=== PATIENT | female | born 1965 | race Hispanic/Latino ===

== ENCOUNTER 2016-11-11 12:25 | Inpatient (IN) | payer OTHER ==
[2016-11-11 12:32] VITALS: BMI 39.5
[2016-11-11] MEDS ORDERED: Sodium Chloride 0.9% 1,000 ML IV STA (12:52)
[2016-11-11] MEDS ORDERED: HYDROmorphone 0.5 mg/0.5 ml ISec ONE ×2 (13:09→15:28)
--- NOTE | 2016-11-11 13:10 | ED PDOC ---
Lower Extremity Pain/Injury Time Seen by Provider: 11/11/16 12:37 Chief Complaint (Nursing): Lower Extremity Problem/Injury Chief Complaint (Provider): foot ulcer History Per: Patient History/Exam Limitations: no limitations Additional Complaint(s): 51yo female comes to the ED for complaint of right foot ulcers that her hand tacker Dr. Macdonald has been treating with Augmentin PO. Symptoms are not getting better so patient is has been referred here for further evaluation. No nausea, vomit, extremity numbness/weakness, tingling chest pain, calf pain. Admits to chronic right kuo swelling. PMD: Dr. Bauer Past Medical History Reviewed: Historical Data, Nursing Documentation, Vital Signs Vital Signs: Last Vital Signs Temp 98.2 F 11/11/16 12:33 Pulse 84 11/11/16 12:33 Resp 16 11/11/16 12:33 BP 183/94 H 11/11/16 12:33 Pulse Ox 98 11/11/16 12:33 - Medical History PMH: Anemia, Anxiety, Back Problems (herniated disks), CAD, CVA, Diabetes (type I), HTN, Hypercholesterolemia, Hyperlipidemia Denies: Arthritis, CHF, COPD, HIV, Hypothyroidism, Chronic Kidney Disease, Rheumatoid Arthritis - Surgical History Surgical History: Appendectomy, Coronary Stent - Family History Family History: States: Unknown Family Hx - Social History Alcohol: None Drugs: Denies - Immunization History Hx Tetanus Toxoid Vaccination: No Hx Influenza Vaccination: No Hx Pneumococcal Vaccination: No - Home Medications Home Medications: Ambulatory Orders Medication Instructions Recorded Hydrochlorothiazide [HCTZ] 25 mg PO DAILY 02/15/14 Ferrous Sulfate [Feosol] 325 mg PO BID 02/23/14 Clopidogrel [Plavix] 75 mg PO DAILY 06/19/14 Atorvastatin Calcium [Lipitor] 40 mg PO HS 10/22/14 Enalapril Maleate 20 mg PO BID 10/22/14 Metoprolol Succinate [Toprol XL] 200 mg PO Q12H 05/28/15 oxyCODONE [oxyCODONE Immediate 30 mg PO Q6H PRN 05/28/15 Release Tab] Morphine Sulfate [Morphine Sulfate 30 mg PO Q12H 03/27/16 ER] cloNIDine [Catapres] 0.1 mg PO BID #0 tab 04/13/16 Alprazolam [Xanax] 0.5 mg PO BID PRN 07/23/16 Insulin Detemir [Levemir] 65 unit SUBCUT HS 07/23/16 Insulin Lispro [Humalog (Insulin 24 unit SQ AC 07/23/16 Lispro)] amLODIPine [Norvasc] 5 mg PO DAILY 07/23/16 Aspirin [Ecotrin] 81 mg PO DAILY tabec 07/25/16 Cephalexin [cephalexin] 500 mg PO BID #14 cap 07/25/16 oxyCODONE/Acetaminophen [Percocet 1 ea PO Q4 #30 tab 07/25/16 5/325 mg Tab] - Allergies Allergies/Adverse Reactions: Allergies Allergy/AdvReac Type Severity Reaction Status Date / Time morphine AdvReac NAUSEA Verified 11/11/16 12:32 Review of Systems ROS Statement: Except As Marked, All Systems Reviewed And Found Negative Cardiovascular: Negative for: Chest Pain Respiratory: Negative for: Shortness of Breath Gastrointestinal: Negative for: Nausea, Vomiting Musculoskeletal: Positive for: Foot Pain Neurological: Negative for: Weakness, Numbness Physical Exam - Reviewed Nursing Documentation Reviewed: Yes Vital Signs Reviewed: Yes - Physical Exam Appears: Positive for: Well, Non-toxic, No Acute Distress Head Exam: Positive for: ATRAUMATIC, NORMAL INSPECTION, NORMOCEPHALIC Skin: Positive for: Warm, Dry Eye Exam: Positive for: EOMI, PERRL Neck: Positive for: Normal, Painless ROM, Supple Cardiovascular/Chest: Positive for: Regular Rate, Rhythm Respiratory: Positive for: Normal Breath Sounds. Negative for: Rales, Rhonchi, Wheezing Gastrointestinal/Abdominal: Positive for: Soft. Negative for: Tenderness Back: Positive for: Normal Inspection. Negative for: L CVA Tenderness, R CVA Tenderness Extremity: Positive for: Normal ROM, Other (R toes all amputated. Right lower extremity venous stasis and swelling. Right plantar foot with ulcer stage 3 and tender. Right lower extremity swelling/venous stasis. D/P pulses 2+. ) Neurologic/Psych: Positive for: Alert, Oriented - Laboratory Results Result Diagrams: 11/11/16 13:30 11/11/16 13:30 Interpretation Of Abn Labs: 26 bun - ECG ECG: Positive for: Interpreted By Me, Viewed By Me ECG Rhythm: Positive for: Normal QRS, Sinus Rhythm, Nonspecific Changes O2 Sat by Pulse Oximetry: 98 (RA) Pulse Ox Interpretation: Normal - Radiology X-Ray: Read By Radiologist X-Ray Interpretation: No Acute Disease - Progress ED Course And Treament: 1237 VBG, EKG, CXR, Labs, XR RIght foot, blood culture, IV Fluids, Dilaudid ordered. 1509: Stable. AAOx3. Podiatry saw pt. and wants maeve and tabatha. Spoke with [facility], will admit. Disposition - Clinical Impression Clinical Impression: Foot ulcer - Patient ED Disposition Is Patient to be Admitted: Yes - Disposition Disposition Time: 15:10 Condition: FAIR - POA Present On Arrival: Pressure Ulcer Additional Comments - Additional Comments Additional Comments: Scribe Attestation: Documented by Robert Fofana acting as a scribe for Mayank Hair MD. Provider Scribe Attestation: All medical record entries made by the Scribe were at my direction and personally dictated by me. I have reviewed the chart and agree that the record accurately reflects my personal performance of the history, physical exam, medical decision making, and the department course for this patient. I have also personally directed, reviewed, and agree with the discharge instructions and disposition.
[2016-11-11 13:46] LABS: BASO # 0.1 K/uL (0.0-0.2); EOS # 0.1 K/uL (0.0-0.7); EOS % 1.5 % (0.0-4.0); HEMATOCRIT 32.1 % (34.0-47.0); LYMPH # 1.2 K/uL (1.0-4.3); LYMPH % 11.7 % (20.0-40.0); MEAN CORPUSCULAR HEMOGLOBIN 26.8 pg (27.0-31.0); MEAN CORPUSCULAR HGB CONC 33.3 g/dL (33.0-37.0); MEAN PLATELET VOLUME 7.3 fl (7.2-11.7); MONO # 0.6 K/uL (0.0-0.8); NEUT % 79.8 % (50.0-75.0); NRBC % 0.1 % (0.0-0.0); RED CELL DISTRIBUTION WIDTH 15.7 % (11.5-14.5); WHITE BLOOD COUNT 10.1 K/uL (4.8-10.8)
[2016-11-11 14:01] LABS: ALB/GLOB RATIO 0.8 (1.0-2.1); ALKALINE PHOSPHATASE 129 U/L (38-126); ALT/SGPT 20 U/L (9-52); AST/SGOT 26 U/L (14-36); BILIRUBIN,TOTAL 0.4 mg/dl (0.2-1.3); BLOOD UREA NITROGEN 26 mg/dl (7-17); CALCIUM 9.8 mg/dL (8.4-10.2); CARBON DIOXIDE 30 mmol/L (22-30); CHLORIDE 96 mmol/L (98-107); GFR AFRICAN-AMERICAN > 60; GLUCOSE,RANDOM 252 mg/dL (65-105); PHOSPHOROUS 4.2 mg/dl (2.5-4.5); SODIUM 141 mmol/l (132-148); TOTAL PROTEIN 7.9 G/DL (6.3-8.2)
--- NOTE | 2016-11-11 14:06 | CP.PCM.CON ---
History of Present Illness - History of Present Illness History of Present Illness: PODIATRY CONSULT NOTE FOR DR. Mayank RODRIGUEZ, DPM This is a 51 yo female patient seen in the ED today for right diabetic foot infection. Pt says that she was seen by her bag mender Dr. Mayank Rodriguez yesterday in the office and was advised to proceed to ED for IV antibiotics. Pt says she has been taking po Augmentin with little improvement. Says she has had this ulceration for the past month and has been treated with local wound care at the office. Denies seeing any drainage from the foot. Does admit to some burning pain plantar aspect. Says the redness to her kuo is chronic. Does say she had low grade fever 2 weeks ago but denies fever the past few day. Denies n/v/c/sob/ cp today but was nauseous yesterday w/ decreased appetite. Denies any problems to left foot. Sees pain management Dr. Escobedo and takes 30mg oxycontin daily. PMD: Dr. Bauer Aircraft Time Clerk: Dr. Mayank Rodriguez Review of Systems - Review of Systems Review of Systems: All systems reviewed and found to be negative, except pertinent HPI findings Past Patient History - Infectious Disease Hx of Infectious Diseases: None - Tetanus Immunizations Tetanus Immunization: Unknown - Past Medical History & Family History Past Medical History?: Yes - Past Social History Smoking Status: Former Smoker - CARDIAC Hx Congestive Heart Failure: No Hx Hypercholesterolemia: Yes Hx Hypertension: Yes - PULMONARY Hx Chronic Obstructive Pulmonary Disease (COPD): No - NEUROLOGICAL Hx Neurological Disorder: No HX Cerebrovascular Accident: Yes - HEENT Hx HEENT Problems: No - RENAL Hx Chronic Kidney Disease: No - ENDOCRINE/METABOLIC Hx Hypothyroidism: No - HEMATOLOGICAL/ONCOLOGICAL Hx Anemia: Yes Hx Human Immunodeficiency Virus (HIV): No - INTEGUMENTARY Hx Dermatological Problems: No Hx Cellulitis: Yes Other/Comment: Gangrene right 2nd toe - MUSCULOSKELETAL/RHEUMATOLOGICAL Hx Arthritis: No Hx Rheumatoid Arthritis: No - GASTROINTESTINAL Hx Gastrointestinal Disorders: No - GENITOURINARY/GYNECOLOGICAL Hx Genitourinary Disorders: No - PSYCHIATRIC Hx Anxiety: Yes Hx Substance Use: No - SURGICAL HISTORY Hx Appendectomy: Yes Hx Coronary Stent: Yes - ANESTHESIA Hx Anesthesia Reactions: Yes (CAN'T BREATH) Meds Allergies/Adverse Reactions: Allergies Allergy/AdvReac Type Severity Reaction Status Date / Time morphine AdvReac NAUSEA Verified 11/11/16 12:32 - Medications Medications: Current Medications Hydromorphone HCl (Dilaudid) 1 mg IV STAT STA Stop: 11/11/16 12:55 Last Admin: 11/11/16 13:31 Dose: 1 mg Sodium Chloride (Sodium Chloride 0.9%) 1,000 mls @ 150 mls/hr IV .Q6H40M STA Stop: 11/11/16 19:31 Last Admin: 11/11/16 13:31 Dose: 150 mls/hr Physical Exam - Constitutional Appears: Non-toxic, No Acute Distress - Extremities Exam Extremities exam: Negative for: calf tenderness Additional comments: RLE focused exam: Dressing to foot appears c/d/i no strikethrouh VASC- DP pulse 1/4, DP pulse 1/4, skin temp runs warm to warm, moderate non- pitting edema noted to dorsum of foot and distal aspect leg NEURO- gross sensation is diminished DERM- there is an open ulceration noted to distal-central aspect of foot stump, wound bed is 50% granular/50% fibrotic, no drainage noted on compression, slight serous drainage seen, no malodor ORTHO- previous amputations noted of all toes LLE: DP/PT pulses palpable, no open wounds, no erythema, no signs infection - Psychiatric Exam Psychiatric exam: Normal Affect, Normal Mood Results - Vital Signs Recent Vital Signs: Last Vital Signs Temp 98.2 F 11/11/16 12:33 Pulse 84 11/11/16 12:33 Resp 16 11/11/16 12:33 BP 183/94 H 11/11/16 12:33 Pulse Ox 98 11/11/16 13:36 - Labs Result Diagrams: 11/11/16 13:30 11/11/16 13:30 Labs: Laboratory Results - last 24 hr 11/11/16 13:30 Sodium 141 Potassium 4.0 Chloride 96 L Carbon Dioxide 30 Anion Gap 19 BUN 26 H Creatinine 0.9 Est GFR ( Amer) > 60 Est GFR (Non-Af Amer) > 60 Random Glucose 252 H Calcium 9.8 Phosphorus 4.2 Magnesium 2.0 Total Bilirubin 0.4 AST 26 ALT 20 Alkaline Phosphatase 129 H D Total Protein 7.9 Albumin 3.6 Globulin 4.3 H Albumin/Globulin Ratio 0.8 L Assessment & Plan - Assessment and Plan (Free Text) Assessment: 51 yo diabetic female presents to ED with infected diabetic foot ulceration Plan: -Pt S&E at bedside in ED -Discussed plan w/ Dr. Rodriguez, DPDanny -Left foot x-rays reviewed: No radiographic evidence for acute osteomyelitis. -Chart, labs, vitals reviewed: afebrile, WBC 10.1 -Wound cx obtained -Left foot dressed with betadine W2D, DSD -Recommend IV/vanco IV -Recommend admission for IV abx -Will continue to follow
[2016-11-11 14:08] LABS: VENOUS BLOOD GAS BASE EXCESS 5.3 mmol/L (0.0-2.0); VENOUS BLOOD GAS PCO2 63 mmHg (40-60); VENOUS BLOOD PH 7.33 (7.32-7.43)
--- NOTE | 2016-11-11 14:11 | RAD ---
HISTORY: Sepsis Patient COMPARISON: 08/16/2015 FINDINGS: LUNGS: No active pulmonary disease. PLEURA: No significant pleural effusion identified, no pneumothorax apparent. CARDIOVASCULAR: Normal. OSSEOUS STRUCTURES: No significant abnormalities. VISUALIZED UPPER ABDOMEN: Normal. OTHER FINDINGS: None. IMPRESSION: No active disease. No significant interval change compared to the prior examination(s).
[2016-11-11 14:13] LABS: PARTIAL THROMBOPLASTIN TIME 25.7 SECONDS (23.3-32.5)
--- NOTE | 2016-11-11 14:13 | RAD ---
PROCEDURE: Right Foot Radiographs. HISTORY: ulcer COMPARISON: None. FINDINGS: BONES: No acute fracture. No significant interval change compared to the prior study, specifically no evidence radiographically of acute osteomyelitis. Expected and stable postoperative changes following metatarsal ectomy is unchanged as are multiple small fragments of bone within soft tissues. JOINTS: No significant interval change compared to the prior examination(s). SOFT TISSUES: Persistent soft tissue swelling. Ulceration at the site of the surgical stump noted. The overall degree of soft tissue swelling is diminished. OTHER FINDINGS: Plantar and Achilles Tendon insertion calcaneal spurs IMPRESSION: No radiographic evidence for acute osteomyelitis.
[2016-11-11 14:31] LABS: MEAN CELL VOLUME 80.3 fl (81.0-99.0)
[2016-11-11] MEDS ORDERED: Piperacillin/Tazobact 3.375 GM in Sodium Chloride 0.9% 100 ML IV STA (14:53)
[2016-11-11] MEDS ORDERED: Vancomycin 1 g Inj ONE (15:32)
--- NOTE | 2016-11-11 15:54 | CP.PCM.HP ---
History of Present Illness - History of Present Illness History of Present Illness: 51 yo F with PMH of IDDMII, HTN, CAD s/p stents, and anemia presents today with c/o right foot ulcer and infection. 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 Was started on Augmentin 2 weeks ago, with little improvement of symptoms. Pt has ortho shoe on and states she has been trying to refrain from weight bearing on that foot for the past few weeks, but lives in a 4 story walk-up apartment which she has to go up and down the stairs for her appointments with companion caregiver. Does c/o severe pain at this time and burning sensation of plantar aspect of right foot. Pt recalls having subjective fever and chills with 1 episode of N/V 1 week ago which resolved. Denies any fever, chills, abdominal pain, N/V/D, headache, CP or SOB at this time. PMD: Dr. Doshi Photoengraving Proofer: Dr. Macdonald Pain management doc: Dr. Escobedo Sketch Liner: Dr. Vogel Present on Admission - Present on Admission Any Indicators Present on Admission: Yes History of Uncontrolled Diabetes: Yes Review of Systems - Constitutional Constitutional: absent: Chills, Fever - EENT Eyes: absent: Blurred Vision - Cardiovascular Cardiovascular: absent: Chest Pain - Respiratory Respiratory: absent: Dyspnea - Gastrointestinal Gastrointestinal: absent: Abdominal Pain, Diarrhea, Nausea, Vomiting - Neurological Neurological: absent: Headaches - Endocrine Endocrine: absent: Polydipsia, Polyuria Past Patient History - Infectious Disease Hx of Infectious Diseases: None - Tetanus Immunizations Tetanus Immunization: Unknown - Past Medical History & Family History Past Medical History?: Yes - Past Social History Alcohol: None Drugs: Denies - CARDIAC Hx Congestive Heart Failure: No Hx Hypercholesterolemia: Yes Hx Hypertension: Yes - PULMONARY Hx Chronic Obstructive Pulmonary Disease (COPD): No - NEUROLOGICAL Hx Neurological Disorder: No HX Cerebrovascular Accident: Yes - HEENT Hx HEENT Problems: No - RENAL Hx Chronic Kidney Disease: No - ENDOCRINE/METABOLIC Hx Hypothyroidism: No - HEMATOLOGICAL/ONCOLOGICAL Hx Anemia: Yes Hx Human Immunodeficiency Virus (HIV): No - INTEGUMENTARY Hx Dermatological Problems: No Hx Cellulitis: Yes Other/Comment: Gangrene right 2nd toe - MUSCULOSKELETAL/RHEUMATOLOGICAL Hx Arthritis: No Hx Rheumatoid Arthritis: No - GASTROINTESTINAL Hx Gastrointestinal Disorders: No - GENITOURINARY/GYNECOLOGICAL Hx Genitourinary Disorders: No - PSYCHIATRIC Hx Anxiety: Yes - SURGICAL HISTORY Hx Appendectomy: Yes Hx Coronary Stent: Yes - ANESTHESIA Hx Anesthesia Reactions: Yes (CAN'T BREATH) Meds Allergies/Adverse Reactions: Allergies Allergy/AdvReac Type Severity Reaction Status Date / Time morphine AdvReac NAUSEA Verified 11/11/16 12:32 Physical Exam - Constitutional Appears: Non-toxic, Other (uncomfortable) - Head Exam Head Exam: NORMAL INSPECTION - Eye Exam Eye Exam: EOMI, Normal appearance, PERRL - ENT Exam ENT Exam: Mucous Membranes Moist - Neck Exam Neck exam: Positive for: Full Rom, Normal Inspection - Respiratory Exam Respiratory Exam: Clear to Auscultation Bilateral, NORMAL BREATHING PATTERN - Cardiovascular Exam Cardiovascular Exam: REGULAR RHYTHM, +S1, +S2 - GI/Abdominal Exam GI & Abdominal Exam: Normal Bowel Sounds, Soft. absent: Tenderness - Extremities Exam Extremities exam: Positive for: calf tenderness. Negative for: normal inspection (b/l feet in ortho shoes. R foot s/p transmetatarsal amputation; dressing C/D/I) - Neurological Exam Neurological exam: Alert, Oriented x3 - Skin Skin Exam: Normal Color Results - Vital Signs Recent Vital Signs: Last Vital Signs Temp 98.2 F 11/11/16 12:33 Pulse 84 11/11/16 12:33 Resp 16 11/11/16 12:33 BP 183/94 H 11/11/16 12:33 Pulse Ox 98 11/11/16 15:10 - Labs Result Diagrams: 11/11/16 13:30 11/11/16 13:30 Assessment & Plan - Assessment and Plan (Free Text) Assessment: 51 yo F with PMH of IDDMII, HTN, CAD s/p stents and anemia admitted for right foot diabetic infection. 1. Infected Diabetic Foot Ulceration - Podiatry consult: Dr. Macdonald - ID consult: Dr. Kiser - Xray shows no radiographic evidence of osteomyelitis - Vanc and Zosyn x 1 dose given in ED - F/u blood and wound culture - pain control 2. IDDMII - uncontrolled - A1C 14.7% in 03/2016 - Pt follows up with endocrine - Dr. Vogel - C/w home insulin regimen -detemir 74 units hs -lispro -24 units w/breakfast -26 units w/lunch -30 units w/dinner - ping FISHER - hypoglycemia protocol 3. CAD s/p stents - c/w aspirin, plavix, lipitor 4. HTN - uncontrolled, asymptomatic - continue home meds - consider adjusting/augmenting meds if remains uncontrolled 5. DVT prophylaxis - lovenox
[2016-11-11] MEDS ORDERED: Glucagon Recombinant 1 mg Inj IM PRN (16:49)
[2016-11-11] MEDS ORDERED: Dextrose 50% SYRINGE Inj (50 ml) IV PRN (16:49)
[2016-11-11] MEDS ORDERED: Insulin Regular 100 units/ml ONE (17:20)
[2016-11-11] MEDS ORDERED: Piperacillin/Tazobact 3.375 gm Inj IVPB ONE (17:20)
[2016-11-11] MEDS: Insulin Lispro (humaLOG) 100 Units/ml Inj SC SCH (17:32)
--- NOTE | 2016-11-11 18:15 | CP.PCM.CON ---
History of Present Illness - History of Present Illness History of Present Illness: 51yo female comes to the ED for complaint of right foot ulcers that her cosmetic surgeon Dr. Macdonald has been treating with Augmentin PO. Symptoms are not getting better so patient is has been referred here for further evaluation. No nausea, vomit, extremity numbness/weakness, tingling chest pain, calf pain. Admits to chronic right kuo swelling. Long Hx DM poorly controlled Multiple foot infections and surgeries Large ulcer right foot No Pus or foul odor - Medical History PMH: Anemia, Anxiety, Back Problems (herniated disks), CAD, CVA, Diabetes (type I), HTN, Hypercholesterolemia, Hyperlipidemia Denies: Arthritis, CHF, COPD, HIV, Hypothyroidism, Chronic Kidney Disease, Rheumatoid Arthritis Review of Systems - Constitutional Constitutional: absent: As Per HPI, Anorexia, Chills, Daytime Sleepiness, Excessive Sweating, Fatigue, Fever, Frequent Falls, Headache, Increased Appetite , Lethargy, Malaise, Night Sweats, Snoring, Sleep Apnea, Weight Gain, Weight Loss, Weakness, Other - EENT Eyes: absent: As Per HPI, Blind Spots, Blurred Vision, Change in Vision, Decreased Night Vision, Diplopia, Discharge, Dry Eye, Exophthalmos, Floaters, Irritation, Itchy Eyes, Loss of Peripheral Vision, Pain, Photophobia, Requires Corrective Lenses, Sees Flashes, Spots in Vision, Tunnel Vision, Other Visual Disturbances, Loss of Vision, Other Ears: absent: As Per HPI, Decreased Hearing, Ear Discharge, Ear Pain, Tinnitus, Abnormal Hearing, Disequilibrium, Dizziness, Other Nose/Mouth/Throat: absent: As Per HPI, Epistaxis, Nasal Congestion, Nasal Discharge, Nasal Obstruction, Nasal Trauma, Nose Pain, Post Nasal Drip, Sinus Pain, Sinus Pressure, Bleeding Gums, Change in Voice, Dental Pain, Dry Mouth, Dysphagia, Halitosis, Hoarsness, Lip Swelling, Mouth Lesions, Mouth Pain, Odynophagia, Sore Throat, Throat Swelling, Tongue Swelling, Facial Pain, Neck Pain, Neck Mass, Other - Breasts Breasts: absent: As Per HPI, Change in Shape, Mass, Pain, Nipple Discharge, Nipple Inversion, Skin Changes, Swelling, Other - Cardiovascular Cardiovascular: absent: As Per HPI, Acrocyanosis, Chest Pain, Chest Pain at Rest , Chest Pain with Activity, Claudication, Diaphoresis, Dyspnea, Dyspnea on Exertion, Edema, Irregular Heart Rhythm, Pain Radiating to Arm/Neck/Jaw, Leg Edema, Leg Ulcers, Lightheadedness, Orthopnea, Palpitations, Paroxysmal Nocturnal Dyspnea, Pedal Edema, Radiating Pain, Rapid Heart Rate, Slow Heart Rate, Syncope, Other - Respiratory Respiratory: absent: As Per HPI, Cough, Dyspnea, Hemoptysis, Dyspnea on Exertion , Wheezing, Snoring, Stridor, Pain on Inspiration, Chest Congestion, Excessive Mucous Production, Change in Mucous Color, Pain with Coughing, Other - Gastrointestinal Gastrointestinal: absent: As Per HPI, Abdominal Pain, Belching, Bloating, Change in Bowel Habits, Change in Stool Character, Coffee Ground Emesis, Constipation, Cramping, Diarrhea, Dyspepsia, Dysphagia, Early Satiety, Excessive Flatus, Fecal Incontinence, Heartburn, Hematemesis, Hematochezia, Loose Stools, Melena, Nausea, Odynophagia, Temesmus, Vomiting, Other - Genitourinary Genitourinary: absent: As Per HPI, Change in Urinary Stream, Difficulty Urinating, Dysuria, Flank Pain, Hematuria, Pyuria, Nocturia, Urinary Incontinence, Urinary Frequency, Urinary Hesitance, Urinary Urgency, Voiding Freq/Small Amts, Freq UTI, Hx Renal/Bladder Calculi, Hx /Renal Surgery, Bladder Distension, Other - Reproductive: Female Reproductive:Female: absent: As Per HPI, Amenorrhea, Amenorrhea/ Control, Currently Menstual, Cycle <21 Days, Cycle >35 Days, Cycle Variable, Menses 1-7 Days, Menses >/= 8 Days, Menses Variable, Cycle > 4 Weeks Between, No Menses for 6 Months, Heavy Menses, Light Menses, Normal Menses, Spotting Between Cycles , S/P Hysterectomy, Menopausal, Post Menopausal, Premenarche, Abnormal Vaginal Bleeding, Dysmenorrhea, Dyspareunia, Genital Lesions, Genital Pruritis, Pelvic Pain, Prolapse Symptoms, Sexual Dysfunction, Vaginal Discharge, Vaginal Dryness , Vaginal Odor, Vaginal Pruritis, Other - Menstruation Menstruation: absent: As Per HPI, Amenorrhea, Amenorrhea/ Control, Currently Menstual, Cycle <21 Days, Cycle >35 Days, Cycle Variable, Menses 1-7 Days, Menses >/= 8 Days, Menses Variable, Cycle > 4 Weeks Between, No Menses for 6 Months, Heavy Menses, Light Menses, Normal Menses, Spotting Between Cycles , S/P Hysterectomy, Menopausal, Post Menopausal, Premenarche, Abnormal Vaginal Bleeding, Dysmenorrhea, Other - Musculoskeletal Musculoskeletal: absent: As Per HPI, Abnormal Gait, Arthralgias, Atrophy, Back Pain, Deformity, Joint Swelling, Limited Range of Motion, Loss of Height, Muscle Cramps, Muscle Weakness, Myalgias, Neck Pain, Numbness, Radiating Pain into Limb, Stiffness, Tingling, Other - Integumentary Integumentary: As Per HPI - Neurological Neurological: As Per HPI - Psychiatric Psychiatric: absent: As Per HPI, Abnormal Sleep Pattern, Anhedonia, Anxiety, Auditory Hallucinations, Behavioral Changes, Change in Appetite, Change in Libido, Confusion, Depression, Difficulty Concentrating, Hallucinations, Homicidal Ideation, Hopelessness, Irritability, Memory Loss, Mood Swings, Panic Attacks, Paranoia, Suicidal Ideation, Visual Hallucinations, Tactile Hallucinations, Other - Endocrine Endocrine: absent: As Per HPI, Change in Body Appearance, Change in Libido, Cold Intolorance, Deepening of Voice, Excessive Sweating, Fatigue, Flushing, Heat Intolorance, Increase in Ring/Shoe/Hat Size, Palpitations, Polydipsia, Polyphagia, Polyuria, Other - Hematologic/Lymphatic Hematologic: absent: As Per HPI, Easy Bleeding, Easy Bruising, Lymphadenopathy, Other Past Patient History - Infectious Disease Hx of Infectious Diseases: None - Tetanus Immunizations Tetanus Immunization: Unknown - Past Medical History & Family History Past Medical History?: Yes - Past Social History Alcohol: None Drugs: Denies - CARDIAC Hx Congestive Heart Failure: No Hx Hypercholesterolemia: Yes Hx Hypertension: Yes - PULMONARY Hx Chronic Obstructive Pulmonary Disease (COPD): No - NEUROLOGICAL Hx Neurological Disorder: No HX Cerebrovascular Accident: Yes - HEENT Hx HEENT Problems: No - RENAL Hx Chronic Kidney Disease: No - ENDOCRINE/METABOLIC Hx Hypothyroidism: No - HEMATOLOGICAL/ONCOLOGICAL Hx Anemia: Yes Hx Human Immunodeficiency Virus (HIV): No - INTEGUMENTARY Hx Dermatological Problems: No Hx Cellulitis: Yes Other/Comment: Gangrene right 2nd toe - MUSCULOSKELETAL/RHEUMATOLOGICAL Hx Arthritis: No Hx Rheumatoid Arthritis: No - GASTROINTESTINAL Hx Gastrointestinal Disorders: No - GENITOURINARY/GYNECOLOGICAL Hx Genitourinary Disorders: No - PSYCHIATRIC Hx Anxiety: Yes - SURGICAL HISTORY Hx Appendectomy: Yes Hx Coronary Stent: Yes - ANESTHESIA Hx Anesthesia Reactions: Yes (CAN'T BREATH) Meds Allergies/Adverse Reactions: Allergies Allergy/AdvReac Type Severity Reaction Status Date / Time morphine AdvReac NAUSEA Verified 11/11/16 12:32 - Medications Medications: Current Medications Acetaminophen (Tylenol 325mg Tab) 650 mg PO Q4 PRN PRN Reason: Fever >100.4 F Alprazolam (Xanax) 0.25 mg PO BID PRN PRN Reason: Anxiety Stop: 11/18/16 16:56 Amlodipine Besylate (Norvasc) 5 mg PO DAILY [facility] Aspirin (Ecotrin) 81 mg PO DAILY [facility] Atorvastatin Calcium (Lipitor) 40 mg PO HS [facility] Clonidine HCl (Catapres) 0.1 mg PO BID [facility] Last Admin: 11/11/16 17:59 Dose: 0.1 mg Clopidogrel Bisulfate (Plavix) 75 mg PO DAILY [facility] Cyanocobalamin (Vitamin B12 1000 Mcg Tab) 1,000 mcg PO DAILY [facility] Dextrose (Dextrose 50% Inj) 0 ml IV STAT PRN; Protocol PRN Reason: Hyglycemia Protocol Dextrose (Glutose 15) 0 gm PO ONCE PRN; Protocol PRN Reason: Hypoglycemia Protocol Enalapril Maleate (Vasotec) 20 mg PO BID [facility] Last Admin: 11/11/16 18:00 Dose: 20 mg Enoxaparin Sodium (Lovenox) 40 mg SC DAILY [facility] PRN Reason: Protocol Ferrous Sulfate (Feosol) 325 mg PO TID [facility] Glucagon (Glucagen Diagnostic Kit) 0 mg IM STAT PRN; Protocol PRN Reason: Hypoglycemia Protocol Hydrochlorothiazide (Hydrodiuril) 25 mg PO DAILY [facility] Sodium Chloride (Sodium Chloride 0.9%) 1,000 mls @ 150 mls/hr IV .Q6H40M STA Stop: 11/11/16 19:31 Last Admin: 11/11/16 13:31 Dose: 150 mls/hr Vancomycin HCl 1 gm/ Sodium (Chloride) 250 mls @ 166.667 mls/hr IVPB Q12 [facility] Piperacillin Sod/Tazobactam (Sod 3.375 gm/ Sodium Chloride) 100 mls @ 100 mls/ hr IVPB Q6 [facility] Insulin Detemir (Levemir) 74 units SC HS [facility] Insulin Human Lispro (Humalog) 26 units SC ACL [facility] Insulin Human Lispro (Humalog) 30 units SC DIN [facility] Last Admin: 11/11/16 17:32 Dose: 30 u Insulin Human Lispro (Humalog) 24 units SC BRK [facility] Isosorbide Mononitrate (Imdur) 60 mg PO DAILY [facility] Metoprolol Succinate (Toprol Xl) 200 mg PO DAILY [facility] Morphine Sulfate (Morphine Extended Release Tab) 30 mg PO Q12 [facility] Ondansetron HCl (Zofran Inj) 4 mg IVP Q4 PRN PRN Reason: Nausea/Vomiting Oxycodone HCl (Oxycodone Immediate Release Tab) 30 mg PO Q6 PRN PRN Reason: Pain, severe (8-10) Povidone Iodine (Betadine 10% Topical Soln) 118 ml TOP ONCE ONE Stop: 11/12/16 07:01 Physical Exam - Constitutional Appears: Non-toxic, Chronically Ill - Head Exam Head Exam: NORMOCEPHALIC - Eye Exam Eye Exam: PERRL. absent: Scleral icterus - ENT Exam ENT Exam: Mucous Membranes Dry - Neck Exam Neck exam: Negative for: Lymphadenopathy - Respiratory Exam Respiratory Exam: Decreased Breath Sounds, Rhonchi - Cardiovascular Exam Cardiovascular Exam: REGULAR RHYTHM, +S1, +S2 - GI/Abdominal Exam GI & Abdominal Exam: Diminished Bowel Sounds, Soft. absent: Tenderness - Rectal Exam Rectal Exam: Deferred - Exam Exam: NORMAL INSPECTION - Extremities Exam Extremities exam: Positive for: pedal edema, tenderness, pedal pulses present. Negative for: calf tenderness Additional comments: RLE focused exam: Dressing to foot appears c/d/i no strikethrouh VASC- DP pulse 1/4, DP pulse 1/4, skin temp runs warm to warm, moderate non- pitting edema noted to dorsum of foot and distal aspect leg NEURO- gross sensation is diminished DERM- there is an open ulceration noted to distal-central aspect of foot stump, wound bed is 50% granular/50% fibrotic, no drainage noted on compression, slight serous drainage seen, no malodor ORTHO- previous amputations noted of all toes LLE: DP/PT pulses palpable, no open wounds, no erythema, no signs infection - Back Exam Back exam: absent: CVA tenderness (L), CVA tenderness (R) - Neurological Exam Neurological exam: Alert, CN II-XII Intact, Oriented x3, Reflexes Normal - Psychiatric Exam Psychiatric exam: Normal Mood Results - Vital Signs Recent Vital Signs: Last Vital Signs Temp 98.8 F 11/11/16 18:05 Pulse 80 11/11/16 18:05 Resp 16 11/11/16 18:05 BP 170/76 H 11/11/16 18:05 Pulse Ox 98 11/11/16 18:05 - Labs Result Diagrams: 11/11/16 13:30 11/11/16 13:30 Assessment & Plan (1) Foot ulcer Status: Acute (2) Diabetic foot ulcer Status: Acute - Assessment and Plan (Free Text) Assessment: r/o OM recc : MRI and or bone scan cont empiric rx will need or debridement
[2016-11-11] MEDS: oxyCODONE 10 mg Immediate Release Tab PO PRN (19:36)
[2016-11-11] MEDS ORDERED: Morphine 30 mg SR Tab PO SCH (21:00)
[2016-11-11] MEDS: Piperacillin/Tazobact 3.375 GM in Sodium Chloride 0.9% 100 ML IVPB SCH (21:59)
[2016-11-11] MEDS ORDERED: Insulin Detemir 100 Units/ml Inj SC SCH (22:00)
[2016-11-11] MEDS ORDERED: HYDROmorphone 0.5 mg/0.5 ml ISec IVP ONE (23:10)
--- NOTE | 2016-11-12 02:45 | CON ---
DATE: 11/11/2016 ROOM: 668. HISTORY OF PRESENT ILLNESS: This is a 51-year-old female with recent uncontrolled type 2 insulin-req uiring diabetes, presenting here with a nonhealing right foot ulceration, currently undergoing IV ant ibiotic management and local debridement, is now being referred for diabetic evaluation because of pe rsistent hyperglycemic accelerations as noted thereof. PAST MEDICAL HISTORY: As mentioned above, history of type 2 insulin-requiring diabetes, currently on the basal and bolus insulin regimen as given. Her current home insulin dose regimen consists of Hum alog taken as 24 units a.c. breakfast, then 26 units a.c. lunch, and 30 units a.c. dinner as ordered. She is also on Levemir at 74 units subQ at bedtime daily as given. History of hypertensive cardiov ascular disease and dyslipidemia. History of diabetic retinopathy and polyneuropathy as noted. Also , history of coronary artery disease and peripheral arterial disease and vasculopathy. She also had the previous cerebrovascular disease with transient ischemic events and no residual weakness as noted . As mentioned, history of coronary artery disease with previous coronary stent placement. There is also history of generalized anxiety state and has used antianxiety medications. History of lumbar d isk disease with lower back pain and radicular pain related to nerve compression as noted. FAMILY HISTORY: Positive for hypertension and diabetes. SOCIAL HISTORY: The patient has supportive family. No known substance use. REVIEW OF SYSTEMS: As mentioned above. Admits to generalized body weakness with easy fatigability a nd tiredness and suboptimal energy level with episodic dizziness and lightheadedness, worse on the da y of admission. Also, admits to visual blurring with vague bifrontal headaches. No chest pains or p alpitations or PNDs. Her oral intake is variable with dyspepsia, nausea, and vague upper abdominal p ains and persistent nocturia as noted. PHYSICAL EXAMINATION: GENERAL: This is an overweight female in no apparent distress. VITAL SIGNS: Blood pressure 150/90, pulse of 70 beats per minute and regular, temperature 98, respir ations 20. Height is 5 feet 6 inches, weight is 245 pounds. HEENT: Head normocephalic. Eyes anicteric with pink conjunctivae. Fundoscopy not possible at this time. Ears, nose, and throat otherwise normal. NECK: Supple. Thyroid gland is normal size. No carotid bruits. No cervical adenopathy. CARDIOPULMONARY: Some adynamic precordium. S1, S2 is rapid and regular. LUNGS: Show scattered rhonchi. ABDOMEN: Obese, soft with positive bowel sounds. EXTREMITIES: No peripheral edema. Pulses are +2 bilaterally. Right foot: There is a large ulcer i n the plantar surface, which has no active exudate at this time as noted. LABORATORY DATA: The chemistry showed a BUN of 26, sodium 141, potassium 4.0, chloride 96, CO2 of 30 , glucose 252, and creatinine 0.9. ASSESSMENT: This is a 51-year-old female with recent uncontrolled, type 2 insulin-requiring diabetes , presenting here with hyperglycemic accelerations with a concomitant acute right foot cellulitis wit h underlying nonhealing neuropathic diabetic ulceration in the plantar surface of the right foot. Sh manny also has diabetic microvascular complications of retinopathy and polyneuropathy with diabetic macro vascular complications of cerebrovascular disease, coronary artery disease with the previous coronary stent placement and peripheral arterial disease and vasculopathy with previous right toe amputations . PLAN OF MANAGEMENT: I have discussed with the patient at length at bedside. We will modify her curr ent basal and bolus insulin regimen to optimize metabolic control as noted thereof. We will increase her basal insulin to Levemir given as 80 units subQ at bedtime daily as indicated. We will continue the Humalog given preprandially as ordered for now, and we will titrate incrementally as indicated t o optimize metabolic control. A hemoglobin A1c has been sent out, which will confirm her prior glyce luna control, and baseline thyroid function studies and a lipid panel will be ordered. We will also o btain serial chemistries and supplement accordingly as needed. We will follow. Yesika Vogel MD cc: [id number] TT: 11/12/2016 01:42:32 Confirmation # [id number] Dictation # [id number] tn 11/12/2016 01:44:38
[2016-11-12] MEDS: oxyCODONE 10 mg Immediate Release Tab PO PRN (04:40)
[2016-11-12] MEDS: Piperacillin/Tazobact 3.375 GM in Sodium Chloride 0.9% 100 ML IVPB SCH ×5 (04:40→22:42)
--- NOTE | 2016-11-12 06:13 | CP.PCM.PN ---
Subjective - Date & Time of Evaluation Date of Evaluation: 11/12/16 Time of Evaluation: 06:30 - Subjective Subjective: PODIATRY CONSULT NOTE DR. Mayank RODRIGUEZ: 51 yo diabetic female patient seen at bedside this morning for f/u of right foot ulceration. Pt seen resting in bedside chair at time of visit. Denies any acute overnight events. Does complain of some burning/throbbing pain to the bottom of the right foot. Has been trying to stay off the foot as much as possible, wear's the surgical shoe. Denies f/n/v/c/sob/cp. Denies eating much yesterday but says she has appetite this morning. Denies any other problems today. Objective - Vital Signs/Intake and Output Vital Signs (last 24 hours): Temp Pulse Resp BP Pulse Ox 98.8 F 90 18 180/92 H 98 11/11/16 18:37 11/12/16 01:39 11/12/16 01:39 11/11/16 18:37 11/12/16 01:39 - Medications Medications: Current Medications Acetaminophen (Tylenol 325mg Tab) 650 mg PO Q4 PRN PRN Reason: Fever >100.4 F Alprazolam (Xanax) 0.25 mg PO BID PRN PRN Reason: Anxiety Stop: 11/18/16 16:56 Amlodipine Besylate (Norvasc) 5 mg PO DAILY [facility] Aspirin (Ecotrin) 81 mg PO DAILY [facility] Atorvastatin Calcium (Lipitor) 40 mg PO HS [facility] Last Admin: 11/11/16 22:00 Dose: 40 mg Clonidine HCl (Catapres) 0.1 mg PO BID [facility] Last Admin: 11/11/16 17:59 Dose: 0.1 mg Clopidogrel Bisulfate (Plavix) 75 mg PO DAILY [facility] Cyanocobalamin (Vitamin B12 1000 Mcg Tab) 1,000 mcg PO DAILY [facility] Dextrose (Dextrose 50% Inj) 0 ml IV STAT PRN; Protocol PRN Reason: Hyglycemia Protocol Dextrose (Glutose 15) 0 gm PO ONCE PRN; Protocol PRN Reason: Hypoglycemia Protocol Enalapril Maleate (Vasotec) 20 mg PO BID [facility] Last Admin: 11/11/16 18:00 Dose: 20 mg Enoxaparin Sodium (Lovenox) 40 mg SC DAILY [facility] PRN Reason: Protocol Ferrous Sulfate (Feosol) 325 mg PO TID [facility] Last Admin: 11/11/16 19:30 Dose: 325 mg Glucagon (Glucagen Diagnostic Kit) 0 mg IM STAT PRN; Protocol PRN Reason: Hypoglycemia Protocol Hydrochlorothiazide (Hydrodiuril) 25 mg PO DAILY [facility] Vancomycin HCl 1 gm/ Sodium (Chloride) 250 mls @ 166.667 mls/hr IVPB Q12 [facility] Piperacillin Sod/Tazobactam (Sod 3.375 gm/ Sodium Chloride) 100 mls @ 100 mls/ hr IVPB Q6 [facility] Last Admin: 11/12/16 04:40 Dose: 100 mls/hr Insulin Detemir (Levemir) 80 units SC HS [facility] Insulin Human Lispro (Humalog) 26 units SC [facility] Insulin Human Lispro (Humalog) 30 units SC DIN [facility] Last Admin: 11/11/16 17:32 Dose: 30 u Insulin Human Lispro (Humalog) 24 units SC BRK [facility] Insulin Human Lispro (Humalog) 0 units SC ACHS [facility] PRN Reason: Protocol Isosorbide Mononitrate (Imdur) 60 mg PO DAILY [facility] Metoprolol Succinate (Toprol Xl) 200 mg PO DAILY [facility] Morphine Sulfate (Morphine Extended Release Tab) 30 mg PO Q12 [facility] Last Admin: 11/11/16 21:21 Dose: 30 mg Ondansetron HCl (Zofran Inj) 4 mg IVP Q4 PRN PRN Reason: Nausea/Vomiting Oxycodone HCl (Oxycodone Immediate Release Tab) 30 mg PO Q6 PRN PRN Reason: Pain, severe (8-10) Last Admin: 11/12/16 04:40 Dose: 30 mg Povidone Iodine (Betadine 10% Topical Soln) 118 ml TOP ONCE ONE Stop: 11/12/16 07:01 - Labs Labs: PT 10.1 SECONDS (9.6-11.2) 11/11/16 13:30 INR 0.97 (0.92-1.08) 11/11/16 13:30 APTT 25.7 SECONDS (23.3-32.5) 11/11/16 13:30 - Constitutional Appears: Non-toxic, No Acute Distress - Extremities Exam Extremities Exam: absent: Calf Tenderness Additional comments: RLE focused exam: Dressing to foot appears c/d/i no strikethrouh VASC- DP pulse 1/4, DP pulse 1/4, skin temp runs warm to warm, moderate non- pitting edema noted to dorsum of foot and distal aspect leg NEURO- gross sensation is diminished DERM- there is an open ulceration noted to distal-central aspect of foot stump, wound bed is 50% granular/50% fibrotic, no drainage noted on compression, slight serous drainage seen to dressing, no purulence, no malodor, erythema noted to distal leg (chronic) ORTHO- previous amputations noted of all toes - Neurological Exam Neurological Exam: Alert, Awake, Oriented x3 - Psychiatric Exam Psychiatric exam: Normal Affect, Normal Mood Assessment and Plan - Assessment and Plan (Free Text) Assessment: 51 yo diabetic female w/ ulceration to right foot secondary to diabetic neuropathy Plan: -Pt S&E at bedside at bedside -Discussed plan w/ Dr. Rodriguez, DPM -Left foot x-rays reviewed: No radiographic evidence for acute osteomyelitis. -Chart, labs, vitals reviewed: afebrile, WBC 9.5 (down from 10.1) -Wound cx: pending results -Left foot dressed with betadine W2D, DSD -c/w current IV abx (vanco/zosyn) per ID Dr. Kiser -Will follow
[2016-11-12] MEDS ORDERED: HYDROmorphone 0.5 mg/0.5 ml ISec IVP ONE (06:43)
[2016-11-12] MEDS ORDERED: Povidone Iodine Topical 10% Sol TOP ONE (07:00)
[2016-11-12 07:45] LABS: BASO # 0.1 K/uL (0.0-0.2); EOS # 0.2 K/uL (0.0-0.7); EOS % 2.1 % (0.0-4.0); HEMATOCRIT 33.9 % (34.0-47.0); LYMPH # 1.5 K/uL (1.0-4.3); LYMPH % 16.3 % (20.0-40.0); MEAN CORPUSCULAR HEMOGLOBIN 26.2 pg (27.0-31.0); MEAN PLATELET VOLUME 7.5 fl (7.2-11.7); MONO # 0.8 K/uL (0.0-0.8); MONO % 8.5 % (0.0-10.0); NEUT # 6.9 K/uL (1.8-7.0); NEUT % 72.1 % (50.0-75.0); NRBC % 0.2 % (0.0-0.0); RED CELL DISTRIBUTION WIDTH 15.7 % (11.5-14.5); WHITE BLOOD COUNT 9.5 K/uL (4.8-10.8)
[2016-11-12 08:14] LABS: CHOLESTEROL 201 mg/dL (0-199)
--- NOTE | 2016-11-12 08:14 | CP.PCM.CON ---
History of Present Illness - History of Present Illness History of Present Illness: 51 yo woman w/ chronic pain is admitted for right foot ulcers. She's known to me from previous admissions. She's currently complaining of 9/10 burning pain in her right foot, not treated by her usual home pain medications. Patient usually sees Dr. Escobedo for her back pain and receives MS Contin 30mg q12h and Roxicodone 30mg q6h PRN. Neuropathic medications have been tried before and they weren't helpful. At time of examination, she had just received Dilaudid IV and that was helpful. Past Patient History - Infectious Disease Hx of Infectious Diseases: None - Tetanus Immunizations Tetanus Immunization: Unknown - Past Medical History & Family History Past Medical History?: Yes - Past Social History Smoking Status: Former Smoker - CARDIAC Hx Cardiac Disorders: Yes Hx Congestive Heart Failure: No Hx Hypercholesterolemia: Yes Hx Hypertension: Yes Other/Comment: Hyperlipidemia - PULMONARY Hx Respiratory Disorders: No Hx Chronic Obstructive Pulmonary Disease (COPD): No - NEUROLOGICAL Hx Neurological Disorder: Yes HX Cerebrovascular Accident: Yes - HEENT Hx HEENT Problems: No - RENAL Hx Chronic Kidney Disease: No - ENDOCRINE/METABOLIC Hx Endocrine Disorders: Yes Hx Diabetes Mellitus Type 1: Yes Hx Hypothyroidism: No - HEMATOLOGICAL/ONCOLOGICAL Hx Blood Disorders: Yes Hx Anemia: Yes Hx Human Immunodeficiency Virus (HIV): No - INTEGUMENTARY Hx Dermatological Problems: Yes Hx Cellulitis: Yes Other/Comment: Gangrene right 2nd toe - MUSCULOSKELETAL/RHEUMATOLOGICAL Hx Musculoskeletal Disorders: Yes Hx Arthritis: Yes Hx Back Pain: Yes Hx Falls: No Hx Herniated Disk: Yes Hx Rheumatoid Arthritis: No - GASTROINTESTINAL Hx Gastrointestinal Disorders: No - GENITOURINARY/GYNECOLOGICAL Hx Genitourinary Disorders: No - PSYCHIATRIC Hx Psychophysiologic Disorder: Yes Hx Anxiety: Yes Hx Substance Use: No - SURGICAL HISTORY Hx Surgeries: Yes Hx Amputation: Yes (right foot TMA) Hx Appendectomy: Yes Hx Coronary Stent: Yes - ANESTHESIA Hx Anesthesia: Yes Hx Anesthesia Reactions: Yes (CAN'T BREATH) Meds Allergies/Adverse Reactions: Allergies Allergy/AdvReac Type Severity Reaction Status Date / Time morphine AdvReac NAUSEA Verified 11/11/16 12:32 - Medications Medications: Current Medications Acetaminophen (Tylenol 325mg Tab) 650 mg PO Q4 PRN PRN Reason: Fever >100.4 F Alprazolam (Xanax) 0.25 mg PO BID PRN PRN Reason: Anxiety Stop: 11/18/16 16:56 Amlodipine Besylate (Norvasc) 5 mg PO DAILY [facility] Aspirin (Ecotrin) 81 mg PO DAILY [facility] Atorvastatin Calcium (Lipitor) 40 mg PO HS [facility] Last Admin: 11/11/16 22:00 Dose: 40 mg Clonidine HCl (Catapres) 0.1 mg PO BID [facility] Last Admin: 11/11/16 17:59 Dose: 0.1 mg Clopidogrel Bisulfate (Plavix) 75 mg PO DAILY [facility] Cyanocobalamin (Vitamin B12 1000 Mcg Tab) 1,000 mcg PO DAILY [facility] Dextrose (Dextrose 50% Inj) 0 ml IV STAT PRN; Protocol PRN Reason: Hyglycemia Protocol Dextrose (Glutose 15) 0 gm PO ONCE PRN; Protocol PRN Reason: Hypoglycemia Protocol Enalapril Maleate (Vasotec) 20 mg PO BID [facility] Last Admin: 11/11/16 18:00 Dose: 20 mg Enoxaparin Sodium (Lovenox) 40 mg SC DAILY [facility] PRN Reason: Protocol Ferrous Sulfate (Feosol) 325 mg PO TID [facility] Last Admin: 11/11/16 19:30 Dose: 325 mg Glucagon (Glucagen Diagnostic Kit) 0 mg IM STAT PRN; Protocol PRN Reason: Hypoglycemia Protocol Hydrochlorothiazide (Hydrodiuril) 25 mg PO DAILY [facility] Hydromorphone HCl (Dilaudid) 2 mg IVP Q4 PRN PRN Reason: Pain, severe (8-10) Vancomycin HCl 1 gm/ Sodium (Chloride) 250 mls @ 166.667 mls/hr IVPB Q12 [facility] Piperacillin Sod/Tazobactam (Sod 3.375 gm/ Sodium Chloride) 100 mls @ 100 mls/ hr IVPB Q6 [facility] Last Admin: 11/12/16 04:40 Dose: 100 mls/hr Insulin Detemir (Levemir) 80 units SC HS [facility] Insulin Human Lispro (Humalog) 26 units SC ACL [facility] Insulin Human Lispro (Humalog) 30 units SC DIN [facility] Last Admin: 11/11/16 17:32 Dose: 30 u Insulin Human Lispro (Humalog) 24 units SC BRK [facility] Insulin Human Lispro (Humalog) 0 units SC ACHS [facility] PRN Reason: Protocol Isosorbide Mononitrate (Imdur) 60 mg PO DAILY [facility] Metoprolol Succinate (Toprol Xl) 200 mg PO DAILY [facility] Morphine Sulfate (Morphine Extended Release Tab) 30 mg PO Q12 [facility] Last Admin: 11/11/16 21:21 Dose: 30 mg Ondansetron HCl (Zofran Inj) 4 mg IVP Q4 PRN PRN Reason: Nausea/Vomiting Physical Exam - Respiratory Exam Respiratory Exam: NORMAL BREATHING PATTERN - GI/Abdominal Exam GI & Abdominal Exam: Soft - Extremities Exam Additional comments: Right foot in dressing, venous stasis changes of right leg Results - Vital Signs Recent Vital Signs: Last Vital Signs Temp 99.0 F 11/12/16 07:25 Pulse 81 11/12/16 07:25 Resp 20 11/12/16 07:25 BP 174/80 H 11/12/16 07:25 Pulse Ox 95 11/12/16 07:25 - Labs Result Diagrams: 11/12/16 06:45 11/11/16 13:30 Labs: Laboratory Results - last 24 hr 11/11/16 11/11/16 11/12/16 17:03 21:24 06:13 WBC RBC Hgb Hct MCV MCH MCHC RDW Plt Count MPV Neut % (Auto) Lymph % (Auto) [place] % (Auto) Eos % (Auto) Baso % (Auto) Neut # Lymph # [place] # Eos # Baso # POC Glucose (mg/dL) 244 H 250 H 178 H 11/12/16 06:45 WBC 9.5 RBC 4.14 Hgb 10.9 L Hct 33.9 L MCV 82.0 MCH 26.2 L MCHC 32.0 L RDW 15.7 H Plt Count 333 MPV 7.5 Neut % (Auto) 72.1 Lymph % (Auto) 16.3 L [place] % (Auto) 8.5 Eos % (Auto) 2.1 Baso % (Auto) 1.0 Neut # 6.9 Lymph # 1.5 [place] # 0.8 Eos # 0.2 Baso # 0.1 POC Glucose (mg/dL) Assessment & Plan (1) Foot ulcer Assessment and Plan: 51 yo woman w/ chronic pain has right foot ulcer. - continue MS Contin 30mg q12h - replace Roxicodone PO with Dilaudid 2mg IV PRN, they are equivalent dosage- barba - continue above regimen while hospitalized - patient may resume home medications and follow up with Dr. Escobedo upon discharge Status: Acute
[2016-11-12] MEDS: Insulin Lispro (humaLOG) 100 Units/ml Inj SC SCH ×8 (08:22→21:06)
--- NOTE | 2016-11-12 08:24 | CARD ---
APPROVED REPORT EKG Measurement Heart [id number] CT 174P53 [id number] <Conclusion> Normal sinus rhythm ST & T wave abnormality, consider lateral ischemia Prolonged QT Abnormal ECG
[2016-11-12] MEDS: Enoxaparin 40 mg Syringe SC SCH ×2 (08:57→09:16)
[2016-11-12] MEDS: Metoprolol Succinate 100 mg XL Tab PO SCH (08:59)
--- NOTE | 2016-11-12 09:02 | PQF GENQUE ---
This form is a permanent part of the medical record 11/12/16 Dr. Tyesha Soler, The attending physician is required to clarify conflicting documentation in the medical record. The following documentation is noted in the medical record: Diagnosis : R foot stage 3 pressure ulcer Documented by :Dr. Mayank RUSH MD Diagnosis : Infected R foot diabetic ulcer Documented by: Dr. Mayank Hensley Podiatry Diagnosis: Non healing neuropathic diabetic ulcer in the plantar surface of R foot Documented by Eyewear Consultant Dr. Vogel Please clarify the appropriate diagnosis for this patient after workup . Clarification of your documentation is requested to better reflect the severity of illness and intensity of treatment of your patient. PHYSICIAN'S RESPONSE Infected r foot diabetic ulcer Based on your medical judgment of the clinical indicators outlined above please clarify the following: [] Practitioner response [] If unable to determine, please check the box, sign and date. Present On Admission (POA) Indicator: [] Present at the time of admission [] Not present at the time of admission [] Clinically Undetermined In responding to this query, please exercise your independent professional judgment. The fact that a question is asked does not imply that any particular answer is desired or expected. Thank you for your clarification on this documentation. If you have any questions please call: extension [phone] [facility] Department * Thank you, Yulia Maharaj RN CDMP [facility]
--- NOTE | 2016-11-12 09:42 | CP.PCM.PN ---
Subjective - Date & Time of Evaluation Date of Evaluation: 11/12/16 Time of Evaluation: 07:20 - Subjective Subjective: The patient is a 51 y/o woman w/ PMH of IDDMII, HTN, CAD s/p stents and anemia admitted for right foot diabetic infection. The patient was seen this morning. There were no acute events overnight. The patient is not in acute distress. The patient was complaining of pain but was relieved with dilaudid. The patient reports improvement after starting antibiotics. The patient's right leg is not tender this morning. The patient denies headaches, dizziness, chest pain, dyspnea, abdominal pain, nausea, vomiting, dysuria, and fevers Objective - Vital Signs/Intake and Output Vital Signs (last 24 hours): Temp Pulse Resp BP Pulse Ox 99.0 F 81 20 174/80 H 95 11/12/16 07:25 11/12/16 08:59 11/12/16 07:25 11/12/16 08:59 11/12/16 07:25 - Medications Medications: Current Medications Acetaminophen (Tylenol 325mg Tab) 650 mg PO Q4 PRN PRN Reason: Fever >100.4 F Alprazolam (Xanax) 0.25 mg PO BID PRN PRN Reason: Anxiety Stop: 11/18/16 16:56 Amlodipine Besylate (Norvasc) 5 mg PO DAILY [facility] Last Admin: 11/12/16 08:58 Dose: 5 mg Aspirin (Ecotrin) 81 mg PO DAILY [facility] Last Admin: 11/12/16 08:55 Dose: 81 mg Atorvastatin Calcium (Lipitor) 40 mg PO HS [facility] Last Admin: 11/11/16 22:00 Dose: 40 mg Clonidine HCl (Catapres) 0.1 mg PO BID [facility] Last Admin: 11/12/16 08:55 Dose: 0.1 mg Clopidogrel Bisulfate (Plavix) 75 mg PO DAILY [facility] Last Admin: 11/12/16 08:58 Dose: 75 mg Cyanocobalamin (Vitamin B12 1000 Mcg Tab) 1,000 mcg PO DAILY [facility] Last Admin: 11/12/16 09:00 Dose: 1,000 mcg Dextrose (Dextrose 50% Inj) 0 ml IV STAT PRN; Protocol PRN Reason: Hyglycemia Protocol Dextrose (Glutose 15) 0 gm PO ONCE PRN; Protocol PRN Reason: Hypoglycemia Protocol Enalapril Maleate (Vasotec) 20 mg PO BID [facility] Last Admin: 11/12/16 08:59 Dose: 20 mg Enoxaparin Sodium (Lovenox) 40 mg SC DAILY [facility] PRN Reason: Protocol Last Admin: 11/12/16 09:16 Dose: Not Given Ferrous Sulfate (Feosol) 325 mg PO TID [facility] Last Admin: 11/12/16 08:56 Dose: 325 mg Glucagon (Glucagen Diagnostic Kit) 0 mg IM STAT PRN; Protocol PRN Reason: Hypoglycemia Protocol Hydrochlorothiazide (Hydrodiuril) 25 mg PO DAILY [facility] Last Admin: 11/12/16 08:56 Dose: 25 mg Hydromorphone HCl (Dilaudid) 2 mg IVP Q4 PRN PRN Reason: Pain, severe (8-10) Vancomycin HCl 1 gm/ Sodium (Chloride) 250 mls @ 166.667 mls/hr IVPB Q12 [facility] Last Admin: 11/12/16 09:00 Dose: 166.667 mls/hr Piperacillin Sod/Tazobactam (Sod 3.375 gm/ Sodium Chloride) 100 mls @ 100 mls/ hr IVPB Q6 [facility] Last Admin: 11/12/16 04:40 Dose: 100 mls/hr Insulin Detemir (Levemir) 80 units SC HS [facility] Insulin Human Lispro (Humalog) 26 units SC ACL [facility] Insulin Human Lispro (Humalog) 30 units SC DIN [facility] Last Admin: 11/11/16 17:32 Dose: 30 u Insulin Human Lispro (Humalog) 24 units SC BRK [facility] Last Admin: 11/12/16 08:22 Dose: 24 u Insulin Human Lispro (Humalog) 0 units SC ACHS [facility] PRN Reason: Protocol Last Admin: 11/12/16 08:24 Dose: Not Given Isosorbide Mononitrate (Imdur) 60 mg PO DAILY [facility] Last Admin: 11/12/16 08:57 Dose: 60 mg Metoprolol Succinate (Toprol Xl) 200 mg PO DAILY [facility] Last Admin: 11/12/16 08:59 Dose: 200 mg Morphine Sulfate (Morphine Extended Release Tab) 30 mg PO Q12 [facility] Last Admin: 11/11/16 21:21 Dose: 30 mg Ondansetron HCl (Zofran Inj) 4 mg IVP Q4 PRN PRN Reason: Nausea/Vomiting - Labs Labs: 11/12/16 06:45 PT 10.1 SECONDS (9.6-11.2) 11/11/16 13:30 INR 0.97 (0.92-1.08) 11/11/16 13:30 APTT 25.7 SECONDS (23.3-32.5) 11/11/16 13:30 - Constitutional Appears: No Acute Distress - Head Exam Head Exam: ATRAUMATIC, NORMOCEPHALIC - ENT Exam ENT Exam: Mucous Membranes Moist - Respiratory Exam Respiratory Exam: Clear to Ausculation Bilateral. absent: Accessory Muscle Use , Chest Wall Tenderness, Decreased Breath Sounds, Prolonged Expiratory Phase, Rales, Rhonchi, Wheezes, Respiratory Distress, Stridor - Cardiovascular Exam Cardiovascular Exam: REGULAR RHYTHM. absent: Tachycardia - GI/Abdominal Exam GI & Abdominal Exam: Soft, Normal Bowel Sounds. absent: Distended, Tenderness - Extremities Exam Extremities Exam: absent: Calf Tenderness, Tenderness Additional comments: left leg with chronic venous stasis changes, non-tender right leg with chronic venous stasis changes, non-tender, (all toes previously amputated) foot dressed clean, dry, and intact faint posterior tibialis pulses bilaterally, non-pitting edema bilaterally up to tibial tuberosity bilaterally - Back Exam Additional comments: non-tender fat collection on right side of back, patient reports that it has been biopsied - Neurological Exam Neurological Exam: Alert, Awake, Oriented x3 Additional comments: ambulates with cane as assist device - Skin Skin Exam: Dry, Intact, Warm Assessment and Plan - Assessment and Plan (Free Text) Assessment: The patient is a 51 y/o woman w/ PMH of IDDMII, HTN, CAD s/p stents and anemia admitted for right foot diabetic infection Plan: 1. Diabetic Foot - Infected Ulceration - Podiatry consulted, Dr. Macdonald; recommendations appreciated - ID consulted, Dr. Kiser; recommendations appreciated - Xray foot 11/11/2016: shows no radiographic evidence of acute osteomyelitis - Vancomycin 1 gm IV Q12h - Piperacillin/Tazobactam 3.375 IV Q6h - Follow up blood and wound culture - no surgery at this time - follow up MRI of right foot w/o contrast 2. Pain Management - follows up with Dr. Escobedo as outpatient - Pain management consulted, Dr. Becerra; recommendations appreciated - MS Contin 30 mg Q12h - Dilaudid 2 mg IV Q4h prn for pain - home pain meds: xanax 0.25 mg PO BID 3. IDDMII - uncontrolled - A1C 14.7% in 03/2016 - follows up with endocrine, Dr. Vogel - Dr. Vogel consulted, recommendations appreciated - C/w home insulin regimen - Detemir 74 units HS increased to 80 units HS - Lispro -24 units w/breakfast -26 units w/lunch -30 units w/dinner - Insulin lispro sliding scale low dose ACHS - accuchecks ACHS - hypoglycemia protocol - follow up HbA1c 4. CAD s/p stents - continue w/ aspirin 81 mg PO daily, plavix 75 mg PO daily, lipitor 40 mg HS 5. HTN - uncontrolled, asymptomatic - continue home meds: amlodipine 5 mg PO daily, clonidine 0.1 mg PO BID, enalapril 20 mg PO BID, HCTZ 25 mg PO daily, isosorbide mononitrate 60 mg PO daily, metoprolol succinate 200 mg PO daily - consider adjusting/augmenting meds if remains uncontrolled 6. DVT prophylaxis - Lovenox 40 mg SC daily
[2016-11-12] MEDS: Morphine 30 mg SR Tab PO SCH ×2 (10:25→21:00)
--- NOTE | 2016-11-12 13:45 | PN ---
DATE: 11/12/2016 ROOM: 668 This is a 51-year-old female with recent uncontrolled type 2 insulin-requiring diabetes, now being fo llowed closely for metabolic management because of supervening hyperglycemic accelerations as noted t hereof. She presented here with a nonhealing right foot neuropathic ulcer with ongoing IV antibiotic s and local debridement procedures as noted thereof. Her glucose levels today have ranged from 178-250 mg/dL. Her latest chemistry showed a BUN of 26, so dium 141, potassium 4.0, chloride 96, CO2 30, glucose 252 and creatinine 0.9. ASSESSMENT: This is a 51-year-old female with uncontrolled and decompensated type 2 insulin-requirin g diabetes, presenting here with marked hyperglycemic accelerations on the background of a suboptimal metabolic control of her diabetic condition as noted. She also has diabetic microvascular complicat ions of retinopathy, polyneuropathy as noted with diabetic macrovascular complications of coronary ar wilfrid disease and peripheral arterial disease and vasculopathy. She apparently had a previous cerebro vascular event with no residual weakness this time. PLAN OF MANAGEMENT: As discussed with the patient and the staff, we will continue her modified basal and bolus insulin regimen to allow for dose equilibration and keep her on the Levemir at the very hi gh dose of 80 units subQ at bedtime daily to start tonight. We will also continue the Humalog given at the variable dose of 24 units before breakfast, 26 units before lunch and 30 units before dinner a s ordered. We will actually give her a very low dose correction scale with Humalog insulin as given. We will titrate incrementally as indicated to optimize metabolic control. We will follow. Yesika Vogel MD cc: [phone] TT: 11/12/2016 13:45:12 Confirmation # [id number] Dictation # [id number]
[2016-11-12] MEDS: Insulin Detemir 100 Units/ml Inj SC SCH (21:07)
[2016-11-13] MEDS: Piperacillin/Tazobact 3.375 GM in Sodium Chloride 0.9% 100 ML IVPB SCH ×4 (04:40→22:12)
--- NOTE | 2016-11-13 07:18 | CP.PCM.PN ---
Subjective - Date & Time of Evaluation Date of Evaluation: 11/13/16 Time of Evaluation: 10:00 - Subjective Subjective: PODIATRY CONSULT NOTE DR. Mayank RODRIGUEZ: 51 yo diabetic female patient seen at bedside this morning for f/u of right foot ulceration. Pt seen resting in bed at time of visit. Denies any acute overnight events. Sleeping well and tolerating diet. Says legs pain is better but still complains of pain to the bottom of the right foot. Says the pain is improved from yesterday and pain meds helping. Denies f/n/v/c/sob/cp. Denies any other problems. Objective - Vital Signs/Intake and Output Vital Signs (last 24 hours): Temp Pulse Resp BP Pulse Ox 98.4 F 93 H 18 152/77 H 97 11/12/16 22:00 11/12/16 22:00 11/12/16 22:00 11/12/16 22:00 11/12/16 22:00 - Medications Medications: Current Medications Acetaminophen (Tylenol 325mg Tab) 650 mg PO Q4 PRN PRN Reason: Fever >100.4 F Alprazolam (Xanax) 0.25 mg PO BID PRN PRN Reason: Anxiety Stop: 11/18/16 16:56 Amlodipine Besylate (Norvasc) 5 mg PO DAILY [facility] Last Admin: 11/12/16 08:58 Dose: 5 mg Aspirin (Ecotrin) 81 mg PO DAILY [facility] Last Admin: 11/12/16 08:55 Dose: 81 mg Atorvastatin Calcium (Lipitor) 40 mg PO HS [facility] Last Admin: 11/12/16 21:05 Dose: 40 mg Clonidine HCl (Catapres) 0.1 mg PO BID [facility] Last Admin: 11/12/16 16:49 Dose: 0.1 mg Clopidogrel Bisulfate (Plavix) 75 mg PO DAILY [facility] Last Admin: 11/12/16 08:58 Dose: 75 mg Cyanocobalamin (Vitamin B12 1000 Mcg Tab) 1,000 mcg PO DAILY [facility] Last Admin: 11/12/16 09:00 Dose: 1,000 mcg Dextrose (Dextrose 50% Inj) 0 ml IV STAT PRN; Protocol PRN Reason: Hyglycemia Protocol Dextrose (Glutose 15) 0 gm PO ONCE PRN; Protocol PRN Reason: Hypoglycemia Protocol Enalapril Maleate (Vasotec) 20 mg PO BID [facility] Last Admin: 11/12/16 16:50 Dose: 20 mg Enoxaparin Sodium (Lovenox) 40 mg SC DAILY [facility] PRN Reason: Protocol Last Admin: 11/12/16 09:16 Dose: Not Given Ferrous Sulfate (Feosol) 325 mg PO TID [facility] Last Admin: 11/12/16 16:50 Dose: 325 mg Glucagon (Glucagen Diagnostic Kit) 0 mg IM STAT PRN; Protocol PRN Reason: Hypoglycemia Protocol Hydrochlorothiazide (Hydrodiuril) 25 mg PO DAILY [facility] Last Admin: 11/12/16 08:56 Dose: 25 mg Hydromorphone HCl (Dilaudid) 2 mg IVP Q4 PRN PRN Reason: Pain, severe (8-10) Last Admin: 11/13/16 04:59 Dose: 2 mg Vancomycin HCl 1 gm/ Sodium (Chloride) 250 mls @ 166.667 mls/hr IVPB Q12 [facility] Last Admin: 11/12/16 20:29 Dose: 166.667 mls/hr Piperacillin Sod/Tazobactam (Sod 3.375 gm/ Sodium Chloride) 100 mls @ 100 mls/ hr IVPB Q6 [facility] Last Admin: 11/13/16 04:40 Dose: 100 mls/hr Insulin Detemir (Levemir) 80 units SC HS [facility] Last Admin: 11/12/16 21:07 Dose: 80 units Insulin Human Lispro (Humalog) 26 units SC ACL [facility] Last Admin: 11/12/16 11:55 Dose: 26 u Insulin Human Lispro (Humalog) 30 units SC DIN [facility] Last Admin: 11/12/16 17:54 Dose: 30 u Insulin Human Lispro (Humalog) 24 units SC BRK [facility] Last Admin: 11/12/16 08:22 Dose: 24 u Insulin Human Lispro (Humalog) 0 units SC ACHS [facility] PRN Reason: Protocol Last Admin: 11/12/16 21:06 Dose: Not Given Isosorbide Mononitrate (Imdur) 60 mg PO DAILY [facility] Last Admin: 11/12/16 08:57 Dose: 60 mg Metoprolol Succinate (Toprol Xl) 200 mg PO DAILY [facility] Last Admin: 11/12/16 08:59 Dose: 200 mg Morphine Sulfate (Morphine Extended Release Tab) 30 mg PO Q12@0900,2100 [facility] Last Admin: 11/12/16 21:00 Dose: Not Given Ondansetron HCl (Zofran Inj) 4 mg IVP Q4 PRN PRN Reason: Nausea/Vomiting - Labs Labs: 11/12/16 06:45 PT 10.1 SECONDS (9.6-11.2) 11/11/16 13:30 INR 0.97 (0.92-1.08) 11/11/16 13:30 APTT 25.7 SECONDS (23.3-32.5) 11/11/16 13:30 - Constitutional Appears: Non-toxic, No Acute Distress - Extremities Exam Extremities Exam: absent: Calf Tenderness Additional comments: RLE focused exam: Dressing to foot appears c/d/i no strikethrouh VASC- DP pulse 1/4, DP pulse 1/4, skin temp runs warm to warm, moderate non- pitting edema noted to dorsum of foot and distal aspect leg NEURO- gross sensation is diminished DERM- there is an open ulceration noted to distal-central aspect of foot stump which measures 2.0x1.0x0.3cm , wound bed is 50% granular/50% fibrotic, no drainage noted on compression, slight serous drainage seen to dressing, no purulence, no malodor, erythema noted to distal leg (chronic) ORTHO- previous amputations noted of all toes - Neurological Exam Neurological Exam: Alert, Awake, Oriented x3 - Psychiatric Exam Psychiatric exam: Normal Affect, Normal Mood Assessment and Plan - Assessment and Plan (Free Text) Assessment: 51 yo diabetic female w/ ulceration to right foot secondary to diabetic neuropathy Plan: -Pt S&E at bedside at bedside -Discussed plan w/ Dr. Torres DPM -Left foot x-rays reviewed: No radiographic evidence for acute osteomyelitis. -MRI: awaiting report -Chart, labs, vitals reviewed: afebrile, WBC 9.5 (down from 10.1) -Wound cx (preliminary): gram + cocci -Left foot re-dressed with betadine W2D, DSD -c/w current IV abx (vanco/zosyn) per ID Dr. Kiser -Will follow
--- NOTE | 2016-11-13 07:59 | CP.PCM.PN ---
Subjective - Date & Time of Evaluation Date of Evaluation: 11/13/16 Time of Evaluation: 07:25 - Subjective Subjective: The patient is a 51 y/o woman w/ PMH of IDDMII, HTN, CAD s/p stents and anemia admitted for right foot diabetic infection. The patient was seen this morning. There were no acute events overnight. The patient is not in acute distress. The patient reports that the pain is moving down from legs and localizing more to sole of the right foot. The patient's right leg remains non-tender this morning. The patient had a normal bowel movement yesterday and is voiding without issue. The patient goes out of bed to chair. The patient denies headaches, dizziness, chest pain, dyspnea, abdominal pain, nausea, vomiting, dysuria, and fevers Objective - Vital Signs/Intake and Output Vital Signs (last 24 hours): Temp Pulse Resp BP Pulse Ox 98.4 F 93 H 18 152/77 H 97 11/12/16 22:00 11/12/16 22:00 11/12/16 22:00 11/12/16 22:00 11/12/16 22:00 - Medications Medications: Current Medications Acetaminophen (Tylenol 325mg Tab) 650 mg PO Q4 PRN PRN Reason: Fever >100.4 F Alprazolam (Xanax) 0.25 mg PO BID PRN PRN Reason: Anxiety Stop: 11/18/16 16:56 Amlodipine Besylate (Norvasc) 5 mg PO DAILY [facility] Last Admin: 11/12/16 08:58 Dose: 5 mg Aspirin (Ecotrin) 81 mg PO DAILY [facility] Last Admin: 11/12/16 08:55 Dose: 81 mg Atorvastatin Calcium (Lipitor) 40 mg PO HS [facility] Last Admin: 11/12/16 21:05 Dose: 40 mg Clonidine HCl (Catapres) 0.1 mg PO BID [facility] Last Admin: 11/12/16 16:49 Dose: 0.1 mg Clopidogrel Bisulfate (Plavix) 75 mg PO DAILY [facility] Last Admin: 11/12/16 08:58 Dose: 75 mg Cyanocobalamin (Vitamin B12 1000 Mcg Tab) 1,000 mcg PO DAILY [facility] Last Admin: 11/12/16 09:00 Dose: 1,000 mcg Dextrose (Dextrose 50% Inj) 0 ml IV STAT PRN; Protocol PRN Reason: Hyglycemia Protocol Dextrose (Glutose 15) 0 gm PO ONCE PRN; Protocol PRN Reason: Hypoglycemia Protocol Enalapril Maleate (Vasotec) 20 mg PO BID [facility] Last Admin: 11/12/16 16:50 Dose: 20 mg Enoxaparin Sodium (Lovenox) 40 mg SC DAILY [facility] PRN Reason: Protocol Last Admin: 11/12/16 09:16 Dose: Not Given Ferrous Sulfate (Feosol) 325 mg PO TID [facility] Last Admin: 11/12/16 16:50 Dose: 325 mg Glucagon (Glucagen Diagnostic Kit) 0 mg IM STAT PRN; Protocol PRN Reason: Hypoglycemia Protocol Hydrochlorothiazide (Hydrodiuril) 25 mg PO DAILY [facility] Last Admin: 11/12/16 08:56 Dose: 25 mg Hydromorphone HCl (Dilaudid) 2 mg IVP Q4 PRN PRN Reason: Pain, severe (8-10) Last Admin: 11/13/16 04:59 Dose: 2 mg Vancomycin HCl 1 gm/ Sodium (Chloride) 250 mls @ 166.667 mls/hr IVPB Q12 [facility] Last Admin: 11/12/16 20:29 Dose: 166.667 mls/hr Piperacillin Sod/Tazobactam (Sod 3.375 gm/ Sodium Chloride) 100 mls @ 100 mls/ hr IVPB Q6 [facility] Last Admin: 11/13/16 04:40 Dose: 100 mls/hr Insulin Detemir (Levemir) 80 units SC HS [facility] Last Admin: 11/12/16 21:07 Dose: 80 units Insulin Human Lispro (Humalog) 26 units SC ACL [facility] Last Admin: 11/12/16 11:55 Dose: 26 u Insulin Human Lispro (Humalog) 30 units SC DIN [facility] Last Admin: 11/12/16 17:54 Dose: 30 u Insulin Human Lispro (Humalog) 24 units SC BRK [facility] Last Admin: 11/12/16 08:22 Dose: 24 u Insulin Human Lispro (Humalog) 0 units SC ACHS [facility] PRN Reason: Protocol Last Admin: 11/12/16 21:06 Dose: Not Given Isosorbide Mononitrate (Imdur) 60 mg PO DAILY [facility] Last Admin: 11/12/16 08:57 Dose: 60 mg Metoprolol Succinate (Toprol Xl) 200 mg PO DAILY [facility] Last Admin: 11/12/16 08:59 Dose: 200 mg Morphine Sulfate (Morphine Extended Release Tab) 30 mg PO Q12@0900,2100 [facility] Last Admin: 11/12/16 21:00 Dose: Not Given Ondansetron HCl (Zofran Inj) 4 mg IVP Q4 PRN PRN Reason: Nausea/Vomiting - Labs Labs: 11/12/16 06:45 PT 10.1 SECONDS (9.6-11.2) 11/11/16 13:30 INR 0.97 (0.92-1.08) 11/11/16 13:30 APTT 25.7 SECONDS (23.3-32.5) 11/11/16 13:30 - Constitutional Appears: No Acute Distress - Head Exam Head Exam: ATRAUMATIC, NORMOCEPHALIC - ENT Exam ENT Exam: Mucous Membranes Moist - Respiratory Exam Respiratory Exam: Clear to Ausculation Bilateral. absent: Accessory Muscle Use , Chest Wall Tenderness, Decreased Breath Sounds, Prolonged Expiratory Phase, Rales, Rhonchi, Wheezes, Respiratory Distress, Stridor - Cardiovascular Exam Cardiovascular Exam: REGULAR RHYTHM. absent: Tachycardia - GI/Abdominal Exam GI & Abdominal Exam: Soft, Normal Bowel Sounds. absent: Distended, Tenderness - Extremities Exam Additional comments: left leg with chronic venous stasis changes, non-tender right leg with chronic venous stasis changes, less erythema, non-tender, (all toes previously amputated) foot dressed clean, dry, and intact faint posterior tibialis pulses bilaterally, non-pitting edema bilaterally up to tibial tuberosity bilaterally - Back Exam Additional comments: non-tender fat collection on right side of back, patient reports that it has been biopsied - Neurological Exam Neurological Exam: Alert, Awake, Oriented x3 Additional comments: ambulates with cane as assist device - Skin Skin Exam: Dry, Intact, Normal Color, Warm Assessment and Plan - Assessment and Plan (Free Text) Assessment: The patient is a 51 y/o woman w/ PMH of IDDMII, HTN, CAD s/p stents and anemia admitted for right foot diabetic infection Plan: 1. Diabetic Foot - Infected Ulceration - Podiatry consulted, Dr. Macdonald; recommendations appreciated - ID consulted, Dr. Kiser; recommendations appreciated - Xray foot 11/11/2016: shows no radiographic evidence of acute osteomyelitis - Day 1: Vancomycin 1 gm IV Q12h - Day 1: Piperacillin/Tazobactam 3.375 IV Q6h - Follow up blood and wound culture - no surgery at this time - follow up MRI of right foot w/o contrast 2. Pain Management - follows up with Dr. Escobedo as outpatient - Pain management consulted, Dr. Becerra; recommendations appreciated - MS Contin 30 mg Q12h - Dilaudid 2 mg IV Q4h prn for pain - home pain meds: xanax 0.25 mg PO BID 3. IDDMII - uncontrolled - A1C 14.7% in 03/2016 - follows up with endocrine, Dr. Vogel - Dr. Vogel consulted, recommendations appreciated - C/w home insulin regimen - Detemir 74 units HS increased to 80 units HS - Lispro -24 units w/breakfast -26 units w/lunch -30 units w/dinner - Insulin lispro sliding scale low dose ACHS - accuchecks ACHS - hypoglycemia protocol - follow up HbA1c 4. CAD s/p stents - continue w/ aspirin 81 mg PO daily, plavix 75 mg PO daily, lipitor 40 mg HS 5. HTN - uncontrolled, asymptomatic - continue home meds: amlodipine 5 mg PO daily, clonidine 0.1 mg PO BID, enalapril 20 mg PO BID, HCTZ 25 mg PO daily, isosorbide mononitrate 60 mg PO daily, metoprolol succinate 200 mg PO daily - consider adjusting/augmenting meds if remains uncontrolled 6. DVT prophylaxis - Lovenox 40 mg SC daily
[2016-11-13] MEDS: Insulin Lispro (humaLOG) 100 Units/ml Inj SC SCH ×7 (08:01→22:13)
[2016-11-13] MEDS: Metoprolol Succinate 100 mg XL Tab PO SCH (08:46)
[2016-11-13] MEDS: Enoxaparin 40 mg Syringe SC SCH ×2 (08:47→09:02)
[2016-11-13] MEDS: Morphine 30 mg SR Tab PO SCH ×2 (09:07→22:03)
--- NOTE | 2016-11-13 10:15 | CP.PCM.PN ---
Subjective - Date & Time of Evaluation Date of Evaluation: 11/13/16 Time of Evaluation: 10:00 - Subjective Subjective: 51 yo woman w/ right foot ulcer. Pain management has been mostly adequate with MS Contin 30mg q12h and Dilaudid 2mg IV PRN. Patient has been asking for the IV Dilaudid around the clock. She denies side effects to the regimen. There are no new complaints. Objective - Vital Signs/Intake and Output Vital Signs (last 24 hours): Temp Pulse Resp BP Pulse Ox 98.3 F 88 20 180/85 H 96 11/13/16 08:17 11/13/16 09:08 11/13/16 08:17 11/13/16 09:08 11/13/16 08:17 - Medications Medications: Current Medications Acetaminophen (Tylenol 325mg Tab) 650 mg PO Q4 PRN PRN Reason: Fever >100.4 F Alprazolam (Xanax) 0.25 mg PO BID PRN PRN Reason: Anxiety Stop: 11/18/16 16:56 Amlodipine Besylate (Norvasc) 5 mg PO DAILY [facility] Last Admin: 11/13/16 08:44 Dose: 5 mg Aspirin (Ecotrin) 81 mg PO DAILY [facility] Last Admin: 11/13/16 09:09 Dose: 81 mg Atorvastatin Calcium (Lipitor) 40 mg PO HS [facility] Last Admin: 11/12/16 21:05 Dose: 40 mg Clonidine HCl (Catapres) 0.1 mg PO BID [facility] Last Admin: 11/13/16 09:08 Dose: 0.1 mg Clopidogrel Bisulfate (Plavix) 75 mg PO DAILY [facility] Last Admin: 11/13/16 08:49 Dose: 75 mg Cyanocobalamin (Vitamin B12 1000 Mcg Tab) 1,000 mcg PO DAILY [facility] Last Admin: 11/13/16 08:47 Dose: 1,000 mcg Dextrose (Dextrose 50% Inj) 0 ml IV STAT PRN; Protocol PRN Reason: Hyglycemia Protocol Dextrose (Glutose 15) 0 gm PO ONCE PRN; Protocol PRN Reason: Hypoglycemia Protocol Enalapril Maleate (Vasotec) 20 mg PO BID [facility] Last Admin: 11/13/16 08:47 Dose: 20 mg Enoxaparin Sodium (Lovenox) 40 mg SC DAILY [facility] PRN Reason: Protocol Last Admin: 11/13/16 09:02 Dose: Not Given Ferrous Sulfate (Feosol) 325 mg PO TID [facility] Last Admin: 11/13/16 09:09 Dose: 325 mg Glucagon (Glucagen Diagnostic Kit) 0 mg IM STAT PRN; Protocol PRN Reason: Hypoglycemia Protocol Hydrochlorothiazide (Hydrodiuril) 25 mg PO DAILY [facility] Last Admin: 11/12/16 08:56 Dose: 25 mg Hydromorphone HCl (Dilaudid) 2 mg IVP Q4 PRN PRN Reason: Pain, severe (8-10) Last Admin: 11/13/16 04:59 Dose: 2 mg Vancomycin HCl 1 gm/ Sodium (Chloride) 250 mls @ 166.667 mls/hr IVPB Q12 [facility] Last Admin: 11/12/16 20:29 Dose: 166.667 mls/hr Piperacillin Sod/Tazobactam (Sod 3.375 gm/ Sodium Chloride) 100 mls @ 100 mls/ hr IVPB Q6 [facility] Last Admin: 11/13/16 09:09 Dose: 100 mls/hr Insulin Detemir (Levemir) 80 units SC HS [facility] Last Admin: 11/12/16 21:07 Dose: 80 units Insulin Human Lispro (Humalog) 26 units SC ACL [facility] Last Admin: 11/12/16 11:55 Dose: 26 u Insulin Human Lispro (Humalog) 30 units SC DIN [facility] Last Admin: 11/12/16 17:54 Dose: 30 u Insulin Human Lispro (Humalog) 24 units SC BRK [facility] Last Admin: 11/13/16 08:52 Dose: 24 u Insulin Human Lispro (Humalog) 0 units SC ACHS [facility] PRN Reason: Protocol Last Admin: 11/13/16 08:01 Dose: Not Given Isosorbide Mononitrate (Imdur) 60 mg PO DAILY [facility] Last Admin: 11/13/16 08:47 Dose: 60 mg Metoprolol Succinate (Toprol Xl) 200 mg PO DAILY [facility] Last Admin: 11/13/16 08:46 Dose: 200 mg Morphine Sulfate (Morphine Extended Release Tab) 30 mg PO Q12@0900,2100 [facility] Last Admin: 11/13/16 09:07 Dose: 30 mg Ondansetron HCl (Zofran Inj) 4 mg IVP Q4 PRN PRN Reason: Nausea/Vomiting - Labs Labs: 11/12/16 06:45 PT 10.1 SECONDS (9.6-11.2) 11/11/16 13:30 INR 0.97 (0.92-1.08) 11/11/16 13:30 APTT 25.7 SECONDS (23.3-32.5) 11/11/16 13:30 - Respiratory Exam Respiratory Exam: NORMAL BREATHING PATTERN - Cardiovascular Exam Cardiovascular Exam: REGULAR RHYTHM Assessment and Plan (1) Foot ulcer Assessment & Plan: 51 yo woman w/ chronic pain and right foot ulcer. - continue MS Contin 30mg q12h - continue Dilaudid 2mg IV q4h PRN - patient to return to home medications upon discharge - Dr. Parikh to cover me if necessary Status: Acute
--- NOTE | 2016-11-13 12:49 | MRI ---
MRI right foot History: Ulceration. Evaluate for osteomyelitis. Comparison: X-ray dated 11/11/2016 Technique: Multi-echo multiplanar sequences were performed through the right foot without the use of intravenous contrast. Findings: Resection of the 1st through 5th digits to the level of the metatarsal bases. Prominent soft tissue ulceration and/or defect noted within the medial soft tissues at the level of the 1st and 2nd digits. At the level of the of the base of the 2nd metatarsal shaft, there is prominent decreased T1 signal with increased STIR signal concerning for possible acute osteomyelitis versus postsurgical change versus Charcot arthropathy. Additional prominent increased signal seen within the base of the 1st metatarsal bone, base of the 3rd metatarsal bone, distal poles of the middle and medial cuneiform bones as well as the medial and distal poles of the lateral cuneiform bone demonstrating patchy decreased T1 signal and increased STIR signal which may represent acute osteomyelitis versus postsurgical changes versus a Charcot arthropathy. Prominent fraying and partial tearing of the Lisfranc ligament. Achilles tendon preserved. Thickening of the plantar fascia measuring up to 1.1 centimeters with adjacent bony spurring suggestive for a moderate to severe plantar fasciitis. Sinus tarsi is preserved. No significant ankle joint effusion. Minimal reactive edema seen at the distal pole of the cuboid bone. Reticulation and edema within the circumferential subcutaneous soft tissues. Anterior extensor tendons are preserved. Mild tenosynovitis of posterior tibial tendon sheath. Remainder of the medial flexor tendons are preserved. Peroneal tendons are preserved. Anterior and posterior tibiofibular ligaments are preserved. Anterior and posterior talofibular ligaments are preserved. Deltoid ligament is preserved. Impression: 1. Resection of the 1st through 5th digits to the level of the metatarsal bases. Prominent soft tissue ulceration and/or defect noted within the medial soft tissues at the level of the 1st and 2nd digits. At the level of the of the base of the 2nd metatarsal shaft, there is prominent decreased T1 signal with increased STIR signal concerning for possible acute osteomyelitis versus postsurgical change versus Charcot arthropathy. Additional prominent increased signal seen within the base of the 1st metatarsal bone, base of the 3rd metatarsal bone, distal poles of the middle and medial cuneiform bones as well as the medial and distal poles of the lateral cuneiform bone demonstrating patchy decreased T1 signal and increased STIR signal which may represent acute osteomyelitis versus postsurgical changes versus a Charcot arthropathy. 2. Prominent fraying and partial tearing of the Lisfranc ligament. 3. Thickening of the plantar fascia measuring up to 1.1 centimeters with adjacent bony spurring suggestive for a moderate to severe plantar fasciitis. 4. Minimal reactive edema seen at the distal pole of the cuboid bone. 5. Reticulation and edema within the circumferential subcutaneous soft tissues. 6. Mild tenosynovitis of posterior tibial tendon sheath.
--- NOTE | 2016-11-13 13:26 | PN ---
DATE: 11/13/2016 ROOM: 668 This is a 51-year-old female with recent uncontrolled type 2 insulin-requiring diabetes, now being fo llowed closely for metabolic management. She has a nonhealing neuropathic right foot ulceration with ongoing IV antibiotic management and local debridement as noted. Her glycemic levels are fluctuating as noted with glucose levels ranging from 228-291 and 305 mg/dL. Her hemoglobin A1c is 10.2%, which is quite elevated, indicative of suboptimal metabolic control of her diabetic condition. Her latest chemistry showed a BUN of 26, sodium 141, potassium 4.0, chloride 96, CO2 30, glucose 252 and creatinine 0.9. So at this time, we will modify her basal and bolus insulin regimen and increase the Humalog to 26 un its before breakfast and 28 units before lunch and 32 units before dinner as ordered. We will also m odify the basal insulin and increase the Levemir to 80 units subQ at bedtime daily as given. We will continue the low-dose correction scale using Humalog insulin as given. We will obtain serial chemis tries and supplement accordingly as needed. We will follow and advise accordingly. Yesika Vogel MD cc: [id number] TT: 11/13/2016 13:25:34 Confirmation # [id number] Dictation # [id number] en
--- NOTE | 2016-11-13 14:07 | CP.PCM.PN ---
Subjective - Date & Time of Evaluation Date of Evaluation: 11/13/16 Time of Evaluation: 09:00 - Subjective Subjective: cultures pending iv rx in progress Objective - Vital Signs/Intake and Output Vital Signs (last 24 hours): Temp Pulse Resp BP Pulse Ox 98.3 F 78 20 135/74 96 11/13/16 08:17 11/13/16 13:10 11/13/16 08:17 11/13/16 13:10 11/13/16 08:17 - Medications Medications: Current Medications Acetaminophen (Tylenol 325mg Tab) 650 mg PO Q4 PRN PRN Reason: Fever >100.4 F Alprazolam (Xanax) 0.25 mg PO BID PRN PRN Reason: Anxiety Stop: 11/18/16 16:56 Amlodipine Besylate (Norvasc) 5 mg PO DAILY [facility] Last Admin: 11/13/16 08:44 Dose: 5 mg Aspirin (Ecotrin) 81 mg PO DAILY [facility] Last Admin: 11/13/16 09:09 Dose: 81 mg Atorvastatin Calcium (Lipitor) 40 mg PO HS [facility] Last Admin: 11/12/16 21:05 Dose: 40 mg Clonidine HCl (Catapres) 0.1 mg PO TID [facility] Last Admin: 11/13/16 13:10 Dose: 0.1 mg Clopidogrel Bisulfate (Plavix) 75 mg PO DAILY [facility] Last Admin: 11/13/16 08:49 Dose: 75 mg Cyanocobalamin (Vitamin B12 1000 Mcg Tab) 1,000 mcg PO DAILY [facility] Last Admin: 11/13/16 08:47 Dose: 1,000 mcg Dextrose (Dextrose 50% Inj) 0 ml IV STAT PRN; Protocol PRN Reason: Hyglycemia Protocol Dextrose (Glutose 15) 0 gm PO ONCE PRN; Protocol PRN Reason: Hypoglycemia Protocol Enalapril Maleate (Vasotec) 20 mg PO BID [facility] Last Admin: 11/13/16 08:47 Dose: 20 mg Enoxaparin Sodium (Lovenox) 40 mg SC DAILY [facility] PRN Reason: Protocol Last Admin: 11/13/16 09:02 Dose: Not Given Ferrous Sulfate (Feosol) 325 mg PO TID [facility] Last Admin: 11/13/16 13:09 Dose: 325 mg Glucagon (Glucagen Diagnostic Kit) 0 mg IM STAT PRN; Protocol PRN Reason: Hypoglycemia Protocol Hydrochlorothiazide (Hydrodiuril) 25 mg PO DAILY [facility] Last Admin: 11/13/16 08:52 Dose: 25 mg Hydromorphone HCl (Dilaudid) 2 mg IVP Q4 PRN PRN Reason: Pain, severe (8-10) Last Admin: 11/13/16 10:08 Dose: 2 mg Vancomycin HCl 1 gm/ Sodium (Chloride) 250 mls @ 166.667 mls/hr IVPB Q12 [facility] Last Admin: 11/13/16 13:13 Dose: 166.667 mls/hr Piperacillin Sod/Tazobactam (Sod 3.375 gm/ Sodium Chloride) 100 mls @ 100 mls/ hr IVPB Q6 [facility] Last Admin: 11/13/16 09:09 Dose: 100 mls/hr Insulin Detemir (Levemir) 80 units SC HS [facility] Last Admin: 11/12/16 21:07 Dose: 80 units Insulin Human Lispro (Humalog) 0 units SC ACHS [facility] PRN Reason: Protocol Last Admin: 11/13/16 12:18 Dose: 2 u Insulin Human Lispro (Humalog) 26 units SC ACB [facility] Insulin Human Lispro (Humalog) 28 units SC ACL [facility] Insulin Human Lispro (Humalog) 32 units SC ACD [facility] Isosorbide Mononitrate (Imdur) 60 mg PO DAILY [facility] Last Admin: 11/13/16 08:47 Dose: 60 mg Metoprolol Succinate (Toprol Xl) 200 mg PO DAILY [facility] Last Admin: 11/13/16 08:46 Dose: 200 mg Morphine Sulfate (Morphine Extended Release Tab) 30 mg PO Q12@0900,2100 [facility] Last Admin: 11/13/16 09:07 Dose: 30 mg Ondansetron HCl (Zofran Inj) 4 mg IVP Q4 PRN PRN Reason: Nausea/Vomiting - Labs Labs: 11/12/16 06:45 PT 10.1 SECONDS (9.6-11.2) 11/11/16 13:30 INR 0.97 (0.92-1.08) 11/11/16 13:30 APTT 25.7 SECONDS (23.3-32.5) 11/11/16 13:30 - Constitutional Appears: Non-toxic - Head Exam Head Exam: NORMOCEPHALIC - Eye Exam Eye Exam: PERRL. absent: Scleral icterus - ENT Exam ENT Exam: Mucous Membranes Dry - Neck Exam Neck Exam: absent: Lymphadenopathy - Respiratory Exam Respiratory Exam: Decreased Breath Sounds, Rhonchi - Cardiovascular Exam Cardiovascular Exam: REGULAR RHYTHM, +S1, +S2 - GI/Abdominal Exam GI & Abdominal Exam: Distended, Soft. absent: Tenderness - Rectal Exam Rectal Exam: Deferred - Exam Exam: NORMAL INSPECTION - Extremities Exam Extremities Exam: Full ROM, Pedal Edema, Tenderness - Back Exam Back Exam: absent: CVA tenderness (L), CVA tenderness (R) - Neurological Exam Neurological Exam: Alert, Awake, Oriented x3 Assessment and Plan (1) Foot ulcer Status: Acute (2) Diabetic foot ulcer Status: Acute - Assessment and Plan (Free Text) Assessment: cont iv rx await cx/ bone scan
[2016-11-13] MEDS: Insulin Detemir 100 Units/ml Inj SC SCH (22:15)
[2016-11-14] MEDS: Piperacillin/Tazobact 3.375 GM in Sodium Chloride 0.9% 100 ML IVPB SCH ×4 (05:00→22:36)
[2016-11-14] MEDS ORDERED: Povidone Iodine Topical 10% Sol ONE (06:41)
--- NOTE | 2016-11-14 07:08 | CP.PCM.PN ---
Subjective - Date & Time of Evaluation Date of Evaluation: 11/14/16 Time of Evaluation: 07:05 - Subjective Subjective: PODIATRY CONSULT NOTE DR. Mayank RODRIGUEZ: 51 yo diabetic female patient seen at bedside this morning for f/u of right foot ulceration. Pt seen resting in bed at time of visit. Denies any acute overnight events. Sleeping well and tolerating diet. Says legs pain is better but still complains of pain to the bottom of the right foot. Says the pain is improved from yesterday and pain meds helping. Denies f/n/v/c/sob/cp. Denies any other problems. Objective - Vital Signs/Intake and Output Vital Signs (last 24 hours): Temp Pulse Resp BP Pulse Ox 98.2 F 78 20 163/80 H 99 11/13/16 20:49 11/13/16 20:49 11/13/16 20:49 11/13/16 20:49 11/13/16 20:49 - Medications Medications: Current Medications Acetaminophen (Tylenol 325mg Tab) 650 mg PO Q4 PRN PRN Reason: Fever >100.4 F Alprazolam (Xanax) 0.25 mg PO BID PRN PRN Reason: Anxiety Stop: 11/18/16 16:56 Amlodipine Besylate (Norvasc) 5 mg PO DAILY [facility] Last Admin: 11/13/16 08:44 Dose: 5 mg Aspirin (Ecotrin) 81 mg PO DAILY [facility] Last Admin: 11/13/16 09:09 Dose: 81 mg Atorvastatin Calcium (Lipitor) 40 mg PO HS [facility] Last Admin: 11/13/16 22:07 Dose: 40 mg Clonidine HCl (Catapres) 0.1 mg PO TID [facility] Last Admin: 11/13/16 17:50 Dose: 0.1 mg Clopidogrel Bisulfate (Plavix) 75 mg PO DAILY [facility] Last Admin: 11/13/16 08:49 Dose: 75 mg Cyanocobalamin (Vitamin B12 1000 Mcg Tab) 1,000 mcg PO DAILY [facility] Last Admin: 11/13/16 08:47 Dose: 1,000 mcg Dextrose (Dextrose 50% Inj) 0 ml IV STAT PRN; Protocol PRN Reason: Hyglycemia Protocol Dextrose (Glutose 15) 0 gm PO ONCE PRN; Protocol PRN Reason: Hypoglycemia Protocol Enalapril Maleate (Vasotec) 20 mg PO BID [facility] Last Admin: 11/13/16 17:52 Dose: 20 mg Enoxaparin Sodium (Lovenox) 40 mg SC DAILY [facility] PRN Reason: Protocol Last Admin: 11/13/16 09:02 Dose: Not Given Ferrous Sulfate (Feosol) 325 mg PO TID [facility] Last Admin: 11/13/16 17:51 Dose: 325 mg Glucagon (Glucagen Diagnostic Kit) 0 mg IM STAT PRN; Protocol PRN Reason: Hypoglycemia Protocol Hydrochlorothiazide (Hydrodiuril) 25 mg PO DAILY [facility] Last Admin: 11/13/16 08:52 Dose: 25 mg Hydromorphone HCl (Dilaudid) 2 mg IVP Q4 PRN PRN Reason: Pain, severe (8-10) Last Admin: 11/14/16 04:41 Dose: 2 mg Vancomycin HCl 1 gm/ Sodium (Chloride) 250 mls @ 166.667 mls/hr IVPB Q12 [facility] Last Admin: 11/13/16 20:03 Dose: 166.667 mls/hr Piperacillin Sod/Tazobactam (Sod 3.375 gm/ Sodium Chloride) 100 mls @ 100 mls/ hr IVPB Q6 [facility] Last Admin: 11/14/16 05:00 Dose: 100 mls/hr Insulin Detemir (Levemir) 80 units SC HS [facility] Last Admin: 11/13/16 22:15 Dose: Not Given Insulin Human Lispro (Humalog) 0 units SC ACHS [facility] PRN Reason: Protocol Last Admin: 11/13/16 22:13 Dose: Not Given Insulin Human Lispro (Humalog) 26 units SC ACB [facility] Insulin Human Lispro (Humalog) 28 units SC ACL [facility] Insulin Human Lispro (Humalog) 32 units SC ACD [facility] Last Admin: 11/13/16 17:54 Dose: 32 units Isosorbide Mononitrate (Imdur) 60 mg PO DAILY [facility] Last Admin: 11/13/16 08:47 Dose: 60 mg Metoprolol Succinate (Toprol Xl) 200 mg PO DAILY [facility] Last Admin: 11/13/16 08:46 Dose: 200 mg Morphine Sulfate (Morphine Extended Release Tab) 30 mg PO Q12@0900,2100 [facility] Last Admin: 11/13/16 22:03 Dose: 30 mg Ondansetron HCl (Zofran Inj) 4 mg IVP Q4 PRN PRN Reason: Nausea/Vomiting - Labs Labs: 11/12/16 06:45 PT 10.1 SECONDS (9.6-11.2) 11/11/16 13:30 INR 0.97 (0.92-1.08) 11/11/16 13:30 APTT 25.7 SECONDS (23.3-32.5) 11/11/16 13:30 - Constitutional Appears: Well, Non-toxic, No Acute Distress - Extremities Exam Additional comments: RLE focused exam: Dressing to foot appears c/d/i no strikethrouh VASC- DP pulse 1/4, DP pulse 1/4, skin temp runs warm to warm, moderate non- pitting edema noted to dorsum of foot and distal aspect leg NEURO- gross sensation is diminished DERM- there is an open ulceration noted to distal-central aspect of foot stump which measures 2.0x1.0x0.3cm , wound bed is 50% granular/50% fibrotic, no drainage noted on compression, slight serous drainage seen to dressing, no purulence, no malodor, erythema noted to distal leg (chronic) ORTHO- previous amputations noted of all toes - Neurological Exam Neurological Exam: Alert, Awake, Oriented x3 - Psychiatric Exam Psychiatric exam: Normal Affect, Normal Mood Assessment and Plan - Assessment and Plan (Free Text) Assessment: 51 yo diabetic female w/ ulceration to right foot secondary to diabetic neuropathy Plan: -Pt S&E at bedside at bedside -Discussed plan w/ Dr. Rodriguez, ERIC -Left foot x-rays reviewed: No radiographic evidence for acute osteomyelitis. -MRI: possible acute OM vs. postsurgical change vs. charcot -Chart, labs, vitals reviewed: afebrile, WBC 9.5 (down from 10.1) -Wound cx (preliminary): gram + cocci -Left foot re-dressed with betadine W2D, DSD -c/w current IV abx (vanco/zosyn) per ID Dr. Kiser -Will follow
[2016-11-14] MEDS: Insulin Lispro (humaLOG) 100 Units/ml Inj SC SCH ×6 (08:20→22:45)
[2016-11-14] MEDS: Morphine 30 mg SR Tab PO SCH ×2 (09:00→22:42)
[2016-11-14] MEDS: Metoprolol Succinate 100 mg XL Tab PO SCH (09:02)
[2016-11-14] MEDS: Enoxaparin 40 mg Syringe SC SCH ×2 (09:03→09:05)
[2016-11-14] MEDS ORDERED: Insulin Lispro (humaLOG) 100 Units/ml Inj SC SCH (11:30)
--- NOTE | 2016-11-14 12:24 | PN ---
DATE: 11/14/2016 ROOM: 668. SUBJECTIVE: This is a 51-year-old female with recent uncontrolled type 2 insulin-requiring diabetes, now being followed closely for metabolic management. She also has a nonhealing neuropathic right fo ot ulcer with ongoing IV antibiotic management and local debridement being undertaken at this time. Her glycemic levels are fluctuating, but improved, and the latest glucose levels have ranged from 112 to 267 and 429 mg/dL. Her latest chemistries include a BUN of 26, sodium 141, potassium 4.0, chlori de 96, CO2 30, glucose 252 and creatinine 0.9. Her latest hemoglobin A1c is 10.2%, which is quite el evated and indicative of suboptimal metabolic control of her diabetic condition even prior to admissi on. So at this time, we will continue the modified basal and bolus insulin regimen and increase the Humal og to 26 units a.c. breakfast and 28 units a.c. lunch and 32 units a.c. dinner as ordered. We will c ontinue also the high dose basal insulin given as Levemir 80 units subQ at bedtime daily as given. W e will titrate incrementally as indicated to optimize metabolic control. We will follow and advise a ccordingly. Yesika Vogel MD cc: [id number] TT: 11/14/2016 12:23:54 Confirmation # [id number] Dictation # [id number] brenda
--- NOTE | 2016-11-14 12:27 | CP.PCM.PN ---
Subjective - Date & Time of Evaluation Date of Evaluation: 11/14/16 Time of Evaluation: 08:00 - Subjective Subjective: Pt seen sitting up, eating breakfast. States that overnight, she had body aches and therefore did not sleep well. Denied any fever, chills. States body aches have now resolved. Right foot pain controlled with pain meds. Denies abdominal pain, N/V/D/C. Reports normal, daily bowel movements. Objective - Vital Signs/Intake and Output Vital Signs (last 24 hours): Temp Pulse Resp BP Pulse Ox 98.3 F 82 20 171/77 H 95 11/14/16 07:59 11/14/16 09:03 11/14/16 07:59 11/14/16 09:03 11/14/16 07:59 - Medications Medications: Current Medications Acetaminophen (Tylenol 325mg Tab) 650 mg PO Q4 PRN PRN Reason: Fever >100.4 F Alprazolam (Xanax) 0.25 mg PO BID PRN PRN Reason: Anxiety Stop: 11/18/16 16:56 Amlodipine Besylate (Norvasc) 5 mg PO DAILY [facility] Last Admin: 11/14/16 09:03 Dose: 5 mg Aspirin (Ecotrin) 81 mg PO DAILY [facility] Last Admin: 11/14/16 10:12 Dose: 81 mg Atorvastatin Calcium (Lipitor) 40 mg PO HS [facility] Last Admin: 11/13/16 22:07 Dose: 40 mg Clonidine HCl (Catapres) 0.1 mg PO TID [facility] Last Admin: 11/14/16 09:01 Dose: 0.1 mg Clopidogrel Bisulfate (Plavix) 75 mg PO DAILY [facility] Last Admin: 11/14/16 09:03 Dose: 75 mg Cyanocobalamin (Vitamin B12 1000 Mcg Tab) 1,000 mcg PO DAILY [facility] Last Admin: 11/14/16 09:03 Dose: 1,000 mcg Dextrose (Dextrose 50% Inj) 0 ml IV STAT PRN; Protocol PRN Reason: Hyglycemia Protocol Dextrose (Glutose 15) 0 gm PO ONCE PRN; Protocol PRN Reason: Hypoglycemia Protocol Enalapril Maleate (Vasotec) 20 mg PO BID [facility] Last Admin: 11/14/16 09:02 Dose: 20 mg Enoxaparin Sodium (Lovenox) 40 mg SC DAILY [facility] PRN Reason: Protocol Last Admin: 11/14/16 09:05 Dose: Not Given Ferrous Sulfate (Feosol) 325 mg PO TID [facility] Last Admin: 11/14/16 10:20 Dose: 325 mg Glucagon (Glucagen Diagnostic Kit) 0 mg IM STAT PRN; Protocol PRN Reason: Hypoglycemia Protocol Hydrochlorothiazide (Hydrodiuril) 25 mg PO DAILY [facility] Last Admin: 11/14/16 10:18 Dose: 25 mg Hydromorphone HCl (Dilaudid) 2 mg IVP Q4 PRN PRN Reason: Pain, severe (8-10) Last Admin: 11/14/16 11:39 Dose: 2 mg Vancomycin HCl 1 gm/ Sodium (Chloride) 250 mls @ 166.667 mls/hr IVPB Q12 [facility] Last Admin: 11/14/16 11:42 Dose: 166.667 mls/hr Piperacillin Sod/Tazobactam (Sod 3.375 gm/ Sodium Chloride) 100 mls @ 100 mls/ hr IVPB Q6 [facility] Last Admin: 11/14/16 11:42 Dose: 100 mls/hr Insulin Detemir (Levemir) 80 units SC HS [facility] Last Admin: 11/13/16 22:15 Dose: Not Given Insulin Human Lispro (Humalog) 0 units SC ACHS [facility] PRN Reason: Protocol Last Admin: 11/14/16 11:43 Dose: 4 u Insulin Human Lispro (Humalog) 26 units SC ACB [facility] Last Admin: 11/14/16 08:20 Dose: 25 unit Insulin Human Lispro (Humalog) 28 units SC ACL [facility] Last Admin: 11/14/16 11:45 Dose: 28 unit Insulin Human Lispro (Humalog) 32 units SC ACD [facility] Last Admin: 11/13/16 17:54 Dose: 32 units Isosorbide Mononitrate (Imdur) 60 mg PO DAILY [facility] Last Admin: 11/14/16 09:02 Dose: 60 mg Metoprolol Succinate (Toprol Xl) 200 mg PO DAILY [facility] Last Admin: 11/14/16 09:02 Dose: 200 mg Morphine Sulfate (Morphine Extended Release Tab) 30 mg PO Q12@0900,2100 [facility] Last Admin: 11/14/16 09:00 Dose: 30 mg Ondansetron HCl (Zofran Inj) 4 mg IVP Q4 PRN PRN Reason: Nausea/Vomiting - Labs Labs: 11/12/16 06:45 PT 10.1 SECONDS (9.6-11.2) 11/11/16 13:30 INR 0.97 (0.92-1.08) 11/11/16 13:30 APTT 25.7 SECONDS (23.3-32.5) 11/11/16 13:30 - Constitutional Appears: Well, No Acute Distress - Head Exam Head Exam: NORMAL INSPECTION - Eye Exam Eye Exam: Normal appearance - ENT Exam ENT Exam: Mucous Membranes Moist - Respiratory Exam Respiratory Exam: Clear to Ausculation Bilateral, NORMAL BREATHING PATTERN - Cardiovascular Exam Cardiovascular Exam: REGULAR RHYTHM, +S1, +S2 - GI/Abdominal Exam GI & Abdominal Exam: Soft, Normal Bowel Sounds. absent: Tenderness - Extremities Exam Extremities Exam: absent: Calf Tenderness Additional comments: Right foot with dressing c/d/i. no streaking or erythema or RLE. nontender calves - Neurological Exam Neurological Exam: Alert, Oriented x3 - Skin Skin Exam: Normal Color Assessment and Plan - Assessment and Plan (Free Text) Assessment: 1. Diabetic Foot - Infected Ulceration - Podiatry consulted, Dr. Macdonald - ID consulted, Dr. Kiser - Vancomycin 1 gm IV Q12h - Piperacillin/Tazobactam 3.375 IV Q6h - blood culture no growth x 48 hours - wound culture prelim: gram positive cocci - MRI: possible osteomyelitis vs postsurgical changes vs charcot arthropathy - discuss results with ID to determine duration of IV abx and possible need for PICC line placement 2. Pain Management - follows up with Dr. Escobedo as outpatient - Pain management consulted, Dr. Becerra; recommendations appreciated - MS Contin 30 mg Q12h - Dilaudid 2 mg IV Q4h prn for pain 3. IDDMII - uncontrolled - A1C now 10%, previously 14.7% in 03/2016 - Dr. Vogel consulted, recommendations appreciated - C/w home insulin regimen - Detemir 80 units HS - Lispro -24 units w/breakfast -26 units w/lunch -30 units w/dinner - Insulin lispro sliding scale low dose ACHS - accuchecks ACHS, hypoglycemia protocol 4. CAD s/p stents - continue w/ aspirin 81 mg PO daily, plavix 75 mg PO daily, lipitor 40 mg HS 5. HTN - uncontrolled, asymptomatic - continue home meds -clonidine increased to 0.1mg TID for better control - monitor 6. DVT prophylaxis - Lovenox 40 mg SC daily
[2016-11-14] MEDS: Insulin Detemir 100 Units/ml Inj SC SCH (22:39)
[2016-11-15] MEDS: Piperacillin/Tazobact 3.375 GM in Sodium Chloride 0.9% 100 ML IVPB SCH ×4 (04:48→23:40)
[2016-11-15 08:25] LABS: BASO # 0.1 K/uL (0.0-0.2); EOS # 0.2 K/uL (0.0-0.7); EOS % 3.6 % (0.0-4.0); HEMATOCRIT 28.2 % (34.0-47.0); LYMPH # 1.1 K/uL (1.0-4.3); LYMPH % 16.5 % (20.0-40.0); MEAN CELL VOLUME 80.6 fl (81.0-99.0); MEAN CORPUSCULAR HEMOGLOBIN 27.1 pg (27.0-31.0); MEAN CORPUSCULAR HGB CONC 33.7 g/dL (33.0-37.0); MEAN PLATELET VOLUME 7.2 fl (7.2-11.7); MONO # 0.5 K/uL (0.0-0.8); MONO % 7.1 % (0.0-10.0); NEUT # 4.7 K/uL (1.8-7.0); NEUT % 71.8 % (50.0-75.0); NRBC % 0.1 % (0.0-0.0); RED CELL DISTRIBUTION WIDTH 15.3 % (11.5-14.5); WHITE BLOOD COUNT 6.5 K/uL (4.8-10.8)
[2016-11-15 08:43] LABS: ALB/GLOB RATIO 0.9 (1.0-2.1); BILIRUBIN,TOTAL 0.2 mg/dl (0.2-1.3); CALCIUM 9.3 mg/dL (8.4-10.2); POTASSIUM 4.3 MMOL/L (3.6-5.0); TOTAL PROTEIN 7.3 G/DL (6.3-8.2)
--- NOTE | 2016-11-15 08:59 | CP.PCM.PN ---
Subjective - Date & Time of Evaluation Date of Evaluation: 11/15/16 Time of Evaluation: 08:00 - Subjective Subjective: The patient is a 51 y/o woman w/ PMH of IDDMII, HTN, CAD s/p stents and anemia admitted for right foot diabetic infection. The patient was seen this morning. There were no acute events overnight. The patient is not in acute distress. The patient reports that the pain is much improved and localized to the bottom of her right foot. The patient's right leg is non-tender and non-erythematic. The patient received her insulin dose last night. The patient is having adequate bowel movements and urination. The patient goes out of bed to chair. The patient denies headaches, dizziness, chest pain, dyspnea, abdominal pain, nausea, vomiting, dysuria, and fevers. Objective - Vital Signs/Intake and Output Vital Signs (last 24 hours): Temp Pulse Resp BP Pulse Ox 98.0 F 75 20 170/79 H 95 11/15/16 08:03 11/15/16 08:03 11/15/16 08:03 11/15/16 08:03 11/15/16 08:03 - Medications Medications: Current Medications Acetaminophen (Tylenol 325mg Tab) 650 mg PO Q4 PRN PRN Reason: Fever >100.4 F Alprazolam (Xanax) 0.25 mg PO BID PRN PRN Reason: Anxiety Stop: 11/18/16 16:56 Amlodipine Besylate (Norvasc) 5 mg PO DAILY [facility] Last Admin: 11/14/16 09:03 Dose: 5 mg Aspirin (Ecotrin) 81 mg PO DAILY [facility] Last Admin: 11/14/16 10:12 Dose: 81 mg Atorvastatin Calcium (Lipitor) 40 mg PO HS [facility] Last Admin: 11/14/16 22:39 Dose: 40 mg Clonidine HCl (Catapres) 0.1 mg PO TID [facility] Last Admin: 11/14/16 16:19 Dose: 0.1 mg Clopidogrel Bisulfate (Plavix) 75 mg PO DAILY [facility] Last Admin: 11/14/16 09:03 Dose: 75 mg Cyanocobalamin (Vitamin B12 1000 Mcg Tab) 1,000 mcg PO DAILY [facility] Last Admin: 11/14/16 09:03 Dose: 1,000 mcg Dextrose (Dextrose 50% Inj) 0 ml IV STAT PRN; Protocol PRN Reason: Hyglycemia Protocol Dextrose (Glutose 15) 0 gm PO ONCE PRN; Protocol PRN Reason: Hypoglycemia Protocol Enalapril Maleate (Vasotec) 20 mg PO BID [facility] Last Admin: 11/14/16 16:22 Dose: 20 mg Enoxaparin Sodium (Lovenox) 40 mg SC DAILY [facility] PRN Reason: Protocol Last Admin: 11/14/16 09:05 Dose: Not Given Ferrous Sulfate (Feosol) 325 mg PO TID [facility] Last Admin: 11/14/16 16:18 Dose: 325 mg Glucagon (Glucagen Diagnostic Kit) 0 mg IM STAT PRN; Protocol PRN Reason: Hypoglycemia Protocol Hydrochlorothiazide (Hydrodiuril) 25 mg PO DAILY [facility] Last Admin: 11/14/16 10:18 Dose: 25 mg Hydromorphone HCl (Dilaudid) 2 mg IVP Q4 PRN PRN Reason: Pain, severe (8-10) Last Admin: 11/15/16 05:56 Dose: 2 mg Vancomycin HCl 1 gm/ Sodium (Chloride) 250 mls @ 166.667 mls/hr IVPB Q12 [facility] Last Admin: 11/14/16 20:02 Dose: 166.667 mls/hr Piperacillin Sod/Tazobactam (Sod 3.375 gm/ Sodium Chloride) 100 mls @ 100 mls/ hr IVPB Q6 [facility] Last Admin: 11/15/16 04:48 Dose: 100 mls/hr Insulin Detemir (Levemir) 80 units SC HS [facility] Last Admin: 11/14/16 22:39 Dose: 80 units Insulin Human Lispro (Humalog) 0 units SC ACHS [facility] PRN Reason: Protocol Last Admin: 11/14/16 22:45 Dose: 2 u Insulin Human Lispro (Humalog) 26 units SC ACB [facility] Last Admin: 11/14/16 08:20 Dose: 25 unit Insulin Human Lispro (Humalog) 28 units SC ACL [facility] Last Admin: 11/14/16 11:45 Dose: 28 unit Insulin Human Lispro (Humalog) 32 units SC ACD [facility] Last Admin: 11/14/16 19:25 Dose: 32 units Isosorbide Mononitrate (Imdur) 60 mg PO DAILY [facility] Last Admin: 11/14/16 09:02 Dose: 60 mg Metoprolol Succinate (Toprol Xl) 200 mg PO DAILY [facility] Last Admin: 11/14/16 09:02 Dose: 200 mg Morphine Sulfate (Morphine Extended Release Tab) 30 mg PO Q12@0900,2100 [facility] Last Admin: 11/14/16 22:42 Dose: 30 mg Ondansetron HCl (Zofran Inj) 4 mg IVP Q4 PRN PRN Reason: Nausea/Vomiting - Labs Labs: 11/15/16 06:30 11/15/16 06:00 PT 10.1 SECONDS (9.6-11.2) 11/11/16 13:30 INR 0.97 (0.92-1.08) 11/11/16 13:30 APTT 25.7 SECONDS (23.3-32.5) 11/11/16 13:30 - Constitutional Appears: No Acute Distress - Head Exam Head Exam: ATRAUMATIC, NORMOCEPHALIC - ENT Exam ENT Exam: Mucous Membranes Moist - Respiratory Exam Respiratory Exam: Clear to Ausculation Bilateral. absent: Accessory Muscle Use , Chest Wall Tenderness, Decreased Breath Sounds, Prolonged Expiratory Phase, Rales, Rhonchi, Wheezes, Respiratory Distress, Stridor - Cardiovascular Exam Cardiovascular Exam: REGULAR RHYTHM. absent: Tachycardia - GI/Abdominal Exam GI & Abdominal Exam: Soft, Normal Bowel Sounds. absent: Distended, Tenderness Additional comments: obese abdomen - Extremities Exam Additional comments: left leg with chronic venous stasis changes, non-tender right leg with chronic venous stasis changes, no erythema, non-tender, foot dressed clean, dry, and intact faint posterior tibialis pulses bilaterally, non-pitting edema bilaterally up to tibial tuberosity bilaterally - Back Exam Additional comments: non-tender fat collection on right side of back - Neurological Exam Neurological Exam: Alert, Awake, Oriented x3 Additional comments: ambulates with cane as assist device - Skin Skin Exam: Dry, Intact, Normal Color, Warm Assessment and Plan - Assessment and Plan (Free Text) Assessment: The patient is a 51 y/o woman w/ PMH of IDDMII, HTN, CAD s/p stents and anemia admitted for right foot diabetic infection Plan: 1. Diabetic Foot - Infected Ulceration - Podiatry consulted, Dr. Macdonald; on board - ID consulted, Dr. Kiser; on board - Day 4: Vancomycin 1 gm IV Q12h - Day 4: Piperacillin/Tazobactam 3.375 IV Q6h - blood culture no growth x 48 hours - wound culture prelim: gram positive cocci - MRI: possible osteomyelitis vs postsurgical changes vs charcot arthropathy - discuss results with ID to determine duration of IV abx and possible need for PICC line placement - vanc trough: 15.1 2. Pain Management - follows up with Dr. Escobedo as outpatient - Pain management consulted, Dr. Becerra; on board - MS Contin 30 mg Q12h - Dilaudid 2 mg IV Q4h prn for pain 3. IDDMII - uncontrolled - A1C now 10%, previously 14.7% in 03/2016 - Endocrinology consulted, Dr. Vogel; recommendations appreciated - C/w home insulin regimen - Detemir 80 units HS - Lispro -26 units w/breakfast -28 units w/lunch -32 units w/dinner - Insulin lispro sliding scale low dose ACHS - accuchecks ACHS, hypoglycemia protocol 4. CAD s/p stents - continue w/ aspirin 81 mg PO daily, plavix 75 mg PO daily, lipitor 40 mg HS 5. HTN - uncontrolled, asymptomatic - home meds: amlodipine 5 mg PO daily, enalapril 20 mg PO BID, HCTZ 25 mg PO daily, isosorbide mononitrate 60 mg PO daily, metoprolol succinate 200 mg PO daily - continue with clonidine 0.1mg TID - monitor 6. DVT prophylaxis - Lovenox 40 mg SC daily
[2016-11-15] MEDS: Enoxaparin 40 mg Syringe SC SCH (09:19)
[2016-11-15] MEDS: Metoprolol Succinate 100 mg XL Tab PO SCH (09:20)
[2016-11-15] MEDS: Morphine 30 mg SR Tab PO SCH ×2 (09:22→21:59)
[2016-11-15] MEDS: Insulin Lispro (humaLOG) 100 Units/ml Inj SC SCH ×6 (09:23→22:07)
[2016-11-15] MEDS ORDERED: Docusate-Senna 50 mg-8.6 mg Tab PO PRN (10:38)
--- NOTE | 2016-11-15 11:09 | CP.PCM.PN ---
Subjective - Date & Time of Evaluation Date of Evaluation: 11/15/16 Time of Evaluation: 11:07 - Subjective Subjective: 51 yo diabetic female patient seen at bedside this morning for f/u of right foot ulceration. Pt seen resting in bed at time of visit. Denies any acute overnight events. Sleeping well and tolerating diet. Says the pain is improved from yesterday and pain meds helping. Denies f/n/v/c/sob/cp. Denies any other problems. Objective - Vital Signs/Intake and Output Vital Signs (last 24 hours): Temp Pulse Resp BP Pulse Ox 98.0 F 75 20 170/79 H 95 11/15/16 08:03 11/15/16 09:20 11/15/16 08:03 11/15/16 09:20 11/15/16 08:03 - Medications Medications: Current Medications Acetaminophen (Tylenol 325mg Tab) 650 mg PO Q4 PRN PRN Reason: Fever >100.4 F Alprazolam (Xanax) 0.25 mg PO BID PRN PRN Reason: Anxiety Stop: 11/18/16 16:56 Amlodipine Besylate (Norvasc) 5 mg PO DAILY [facility] Last Admin: 11/15/16 09:16 Dose: 5 mg Aspirin (Ecotrin) 81 mg PO DAILY [facility] Last Admin: 11/15/16 09:19 Dose: 81 mg Atorvastatin Calcium (Lipitor) 40 mg PO HS [facility] Last Admin: 11/14/16 22:39 Dose: 40 mg Clonidine HCl (Catapres) 0.1 mg PO TID [facility] Last Admin: 11/15/16 09:19 Dose: 0.1 mg Clopidogrel Bisulfate (Plavix) 75 mg PO DAILY [facility] Last Admin: 11/15/16 09:19 Dose: 75 mg Cyanocobalamin (Vitamin B12 1000 Mcg Tab) 1,000 mcg PO DAILY [facility] Last Admin: 11/15/16 09:20 Dose: 1,000 mcg Dextrose (Dextrose 50% Inj) 0 ml IV STAT PRN; Protocol PRN Reason: Hyglycemia Protocol Dextrose (Glutose 15) 0 gm PO ONCE PRN; Protocol PRN Reason: Hypoglycemia Protocol Enalapril Maleate (Vasotec) 20 mg PO BID [facility] Last Admin: 11/15/16 09:17 Dose: 20 mg Enoxaparin Sodium (Lovenox) 40 mg SC DAILY [facility] PRN Reason: Protocol Last Admin: 11/15/16 09:19 Dose: Not Given Ferrous Sulfate (Feosol) 325 mg PO TID [facility] Last Admin: 11/15/16 09:17 Dose: 325 mg Glucagon (Glucagen Diagnostic Kit) 0 mg IM STAT PRN; Protocol PRN Reason: Hypoglycemia Protocol Hydrochlorothiazide (Hydrodiuril) 25 mg PO DAILY [facility] Last Admin: 11/15/16 09:16 Dose: 25 mg Hydromorphone HCl (Dilaudid) 2 mg IVP Q4 PRN PRN Reason: Pain, severe (8-10) Last Admin: 11/15/16 10:48 Dose: 2 mg Vancomycin HCl 1 gm/ Sodium (Chloride) 250 mls @ 166.667 mls/hr IVPB Q12 [facility] Last Admin: 11/14/16 20:02 Dose: 166.667 mls/hr Piperacillin Sod/Tazobactam (Sod 3.375 gm/ Sodium Chloride) 100 mls @ 100 mls/ hr IVPB Q6 [facility] Last Admin: 11/15/16 09:15 Dose: 100 mls/hr Insulin Detemir (Levemir) 80 units SC HS [facility] Last Admin: 11/14/16 22:39 Dose: 80 units Insulin Human Lispro (Humalog) 0 units SC ACHS [facility] PRN Reason: Protocol Last Admin: 11/15/16 09:24 Dose: 2 u Insulin Human Lispro (Humalog) 30 units SC ACB [facility] Insulin Human Lispro (Humalog) 32 units SC ACL [facility] Insulin Human Lispro (Humalog) 34 units SC ACD [facility] Isosorbide Mononitrate (Imdur) 60 mg PO DAILY [facility] Last Admin: 11/15/16 09:19 Dose: 60 mg Metoprolol Succinate (Toprol Xl) 200 mg PO DAILY [facility] Last Admin: 11/15/16 09:20 Dose: 200 mg Morphine Sulfate (Morphine Extended Release Tab) 30 mg PO Q12@0900,2100 [facility] Last Admin: 11/15/16 09:22 Dose: 30 mg Ondansetron HCl (Zofran Inj) 4 mg IVP Q4 PRN PRN Reason: Nausea/Vomiting Senna/Docusate Sodium (Senokot S 50 Mg-8.6 Mg) 2 tab PO HS PRN PRN Reason: Constipation - Labs Labs: 11/15/16 06:30 11/15/16 06:00 PT 10.1 SECONDS (9.6-11.2) 11/11/16 13:30 INR 0.97 (0.92-1.08) 11/11/16 13:30 APTT 25.7 SECONDS (23.3-32.5) 11/11/16 13:30 - Constitutional Appears: Well, Non-toxic, No Acute Distress - Extremities Exam Additional comments: RLE focused exam: Dressing to foot appears c/d/i no strikethrough VASC- DP pulse 1/4, DP pulse 1/4, skin temp runs warm to warm, moderate non- pitting edema noted to dorsum of foot and distal aspect leg NEURO- gross sensation is diminished DERM- there is an open ulceration noted to distal-central aspect of foot stump which measures 2.0x1.0x0.3cm , wound bed is 50% granular/50% fibrotic, no drainage noted on compression, slight serous drainage seen to dressing, no purulence, no malodor, erythema noted to distal leg (chronic) ORTHO- previous amputations noted of all toes - Neurological Exam Neurological Exam: Alert, Awake, Oriented x3 - Psychiatric Exam Psychiatric exam: Normal Affect, Normal Mood Assessment and Plan - Assessment and Plan (Free Text) Assessment: 51 yo diabetic female w/ ulceration to right foot secondary to diabetic neuropathy Plan: -Pt S&E at bedside at bedside -Discussed plan w/ Dr. Macdonald, DPM -Left foot x-rays reviewed: No radiographic evidence for acute osteomyelitis. -MRI: possible acute OM vs. postsurgical change vs. charcot -Chart, labs, vitals reviewed: afebrile, WBC 6.5 -Wound cx (preliminary): coagulase negative staph -Left foot re-dressed with betadine W2D, DSD -c/w current IV abx (vanco/zosyn) per ID Dr. Kiser -Will follow
--- NOTE | 2016-11-15 11:14 | PN ---
DATE: 11/15/2016 ROOM: 668 This is a 51-year-old female with recent uncontrolled type 2 insulin-requiring diabetes, presenting h ere with a nonhealing right foot plantar ulceration with associated cellulitis, and is now being foll owed closely for metabolic management because of recent hyperglycemic accelerations as noted thereof. She underwent an MRI of the right foot showing the very strong possibility of an acute osteomyeliti s with underlying Charcot arthropathy as noted. Her glycemic levels are still fluctuating with persistent hyperglycemic accelerations and the glucose levels today have ranged from 283-302 mg/dL. It was 280-395 at bedtime last night. The latest chem istries showed a BUN of 31, sodium 140, potassium 4.3, chloride 100, CO2 30, glucose 263 and creatini ne 1.2. So at this time, we will modify once again her basal and bolus insulin regimen and increase the Humal og to 30 units before breakfast, 32 units before lunch and 34 units before dinner as ordered. We hanna l continue the Levemir given as 80 units subQ at bedtime daily as ordered. We will titrate increment ally as indicated to optimize metabolic control. We will continue the low-dose correction scale usin g Humalog insulin as given. We will obtain serial chemistries and supplement accordingly as needed. We will follow. Yesika Vogel MD cc: [id number] TT: 11/15/2016 11:13:58 Confirmation # [id number] Dictation # [id number] en
--- NOTE | 2016-11-15 13:32 | CP.PCM.PN ---
Subjective - Date & Time of Evaluation Date of Evaluation: 11/15/16 Time of Evaluation: 09:00 - Subjective Subjective: events noted iv rx renewed labsreviewed cont rx Objective - Vital Signs/Intake and Output Vital Signs (last 24 hours): Temp Pulse Resp BP Pulse Ox 98.0 F 72 20 148/80 95 11/15/16 08:03 11/15/16 13:05 11/15/16 08:03 11/15/16 13:05 11/15/16 08:03 - Medications Medications: Current Medications Acetaminophen (Tylenol 325mg Tab) 650 mg PO Q4 PRN PRN Reason: Fever >100.4 F Alprazolam (Xanax) 0.25 mg PO BID PRN PRN Reason: Anxiety Stop: 11/18/16 16:56 Amlodipine Besylate (Norvasc) 5 mg PO DAILY [facility] Last Admin: 11/15/16 09:16 Dose: 5 mg Aspirin (Ecotrin) 81 mg PO DAILY [facility] Last Admin: 11/15/16 09:19 Dose: 81 mg Atorvastatin Calcium (Lipitor) 40 mg PO HS [facility] Last Admin: 11/14/16 22:39 Dose: 40 mg Clonidine HCl (Catapres) 0.1 mg PO TID [facility] Last Admin: 11/15/16 13:05 Dose: 0.1 mg Clopidogrel Bisulfate (Plavix) 75 mg PO DAILY [facility] Last Admin: 11/15/16 09:19 Dose: 75 mg Cyanocobalamin (Vitamin B12 1000 Mcg Tab) 1,000 mcg PO DAILY [facility] Last Admin: 11/15/16 09:20 Dose: 1,000 mcg Dextrose (Dextrose 50% Inj) 0 ml IV STAT PRN; Protocol PRN Reason: Hyglycemia Protocol Dextrose (Glutose 15) 0 gm PO ONCE PRN; Protocol PRN Reason: Hypoglycemia Protocol Enalapril Maleate (Vasotec) 20 mg PO BID [facility] Last Admin: 11/15/16 09:17 Dose: 20 mg Enoxaparin Sodium (Lovenox) 40 mg SC DAILY [facility] PRN Reason: Protocol Last Admin: 11/15/16 09:19 Dose: Not Given Ferrous Sulfate (Feosol) 325 mg PO TID [facility] Last Admin: 11/15/16 13:05 Dose: 325 mg Glucagon (Glucagen Diagnostic Kit) 0 mg IM STAT PRN; Protocol PRN Reason: Hypoglycemia Protocol Hydrochlorothiazide (Hydrodiuril) 25 mg PO DAILY [facility] Last Admin: 11/15/16 09:16 Dose: 25 mg Hydromorphone HCl (Dilaudid) 2 mg IVP Q4 PRN PRN Reason: Pain, severe (8-10) Last Admin: 11/15/16 10:48 Dose: 2 mg Vancomycin HCl 1 gm/ Sodium (Chloride) 250 mls @ 166.667 mls/hr IVPB Q12 [facility] Last Admin: 11/15/16 11:30 Dose: 166.667 mls/hr Piperacillin Sod/Tazobactam (Sod 3.375 gm/ Sodium Chloride) 100 mls @ 100 mls/ hr IVPB Q6 [facility] Last Admin: 11/15/16 09:15 Dose: 100 mls/hr Insulin Detemir (Levemir) 80 units SC HS [facility] Last Admin: 11/14/16 22:39 Dose: 80 units Insulin Human Lispro (Humalog) 0 units SC ACHS [facility] PRN Reason: Protocol Last Admin: 11/15/16 11:32 Dose: Not Given Insulin Human Lispro (Humalog) 30 units SC ACB [facility] Insulin Human Lispro (Humalog) 32 units SC ACL [facility] Last Admin: 11/15/16 11:31 Dose: 32 unit Insulin Human Lispro (Humalog) 34 units SC ACD [facility] Isosorbide Mononitrate (Imdur) 60 mg PO DAILY [facility] Last Admin: 11/15/16 09:19 Dose: 60 mg Metoprolol Succinate (Toprol Xl) 200 mg PO DAILY [facility] Last Admin: 11/15/16 09:20 Dose: 200 mg Morphine Sulfate (Morphine Extended Release Tab) 30 mg PO Q12@0900,2100 [facility] Last Admin: 11/15/16 09:22 Dose: 30 mg Ondansetron HCl (Zofran Inj) 4 mg IVP Q4 PRN PRN Reason: Nausea/Vomiting Senna/Docusate Sodium (Senokot S 50 Mg-8.6 Mg) 2 tab PO HS PRN PRN Reason: Constipation - Labs Labs: 11/15/16 06:30 11/15/16 06:00 PT 10.1 SECONDS (9.6-11.2) 11/11/16 13:30 INR 0.97 (0.92-1.08) 11/11/16 13:30 APTT 25.7 SECONDS (23.3-32.5) 11/11/16 13:30 - Constitutional Appears: Non-toxic, Chronically Ill - Head Exam Head Exam: NORMOCEPHALIC - Eye Exam Eye Exam: PERRL. absent: Scleral icterus - ENT Exam ENT Exam: Mucous Membranes Dry - Neck Exam Neck Exam: absent: Lymphadenopathy - Respiratory Exam Respiratory Exam: Decreased Breath Sounds, Clear to Ausculation Bilateral - Cardiovascular Exam Cardiovascular Exam: REGULAR RHYTHM, +S1, +S2 - Rectal Exam Rectal Exam: Deferred - Extremities Exam Extremities Exam: Pedal Edema, Tenderness. absent: Calf Tenderness - Back Exam Back Exam: absent: CVA tenderness (L), CVA tenderness (R) - Neurological Exam Neurological Exam: Alert, Awake, Oriented x3 Assessment and Plan (1) Foot ulcer Status: Acute (2) Diabetic foot ulcer Status: Acute - Assessment and Plan (Free Text) Plan: cont rx for 6 weeks
[2016-11-15] MEDS ORDERED: Insulin Lispro (humaLOG) 100 Units/ml Inj SC SCH (16:30)
[2016-11-15] MEDS: Insulin Detemir 100 Units/ml Inj SC SCH (22:08)
[2016-11-16] MEDS: Piperacillin/Tazobact 3.375 GM in Sodium Chloride 0.9% 100 ML IVPB SCH ×2 (04:18→09:04)
[2016-11-16] MEDS: Insulin Lispro (humaLOG) 100 Units/ml Inj SC SCH ×5 (06:52→22:47)
[2016-11-16] MEDS ORDERED: Insulin Lispro (humaLOG) 100 Units/ml Inj SC SCH ×2 (07:30→16:30)
[2016-11-16 08:03] LABS: BLOOD UREA NITROGEN 30 mg/dl (7-17); CALCIUM 9.7 mg/dL (8.4-10.2); CARBON DIOXIDE 28 mmol/L (22-30); CHLORIDE 102 mmol/L (98-107); GFR AFRICAN-AMERICAN > 60; GLUCOSE,RANDOM 202 mg/dL (65-105); POTASSIUM 4.4 MMOL/L (3.6-5.0); SODIUM 140 mmol/l (132-148)
[2016-11-16] MEDS: Enoxaparin 40 mg Syringe SC SCH ×3 (08:42→17:12)
[2016-11-16] MEDS: Metoprolol Succinate 100 mg XL Tab PO SCH (08:43)
--- NOTE | 2016-11-16 08:43 | CP.PCM.PN ---
Subjective - Date & Time of Evaluation Date of Evaluation: 11/16/16 Time of Evaluation: 10:50 - Subjective Subjective: 51 yo diabetic female patient seen at bedside this morning, with attending Dr. Macdonald present, to evaluate right foot ulceration. Pt seen resting in bed at time of visit. Denies any acute overnight events. Sleeping well and tolerating diet. Says the pain is improved significantly and the redness and swelling has gone down remarkably. Denies f/n/v/c/sob/cp. Denies any other problems. Objective - Vital Signs/Intake and Output Vital Signs (last 24 hours): Temp Pulse Resp BP Pulse Ox 97.8 F 82 20 170/74 H 95 11/16/16 08:31 11/16/16 08:31 11/16/16 08:31 11/16/16 08:31 11/16/16 08:31 - Medications Medications: Current Medications Acetaminophen (Tylenol 325mg Tab) 650 mg PO Q4 PRN PRN Reason: Fever >100.4 F Alprazolam (Xanax) 0.25 mg PO BID PRN PRN Reason: Anxiety Stop: 11/18/16 16:56 Amlodipine Besylate (Norvasc) 5 mg PO DAILY [facility] Last Admin: 11/15/16 09:16 Dose: 5 mg Aspirin (Ecotrin) 81 mg PO DAILY [facility] [place] Last Admin: 11/15/16 09:19 Dose: 81 mg Atorvastatin Calcium (Lipitor) 40 mg PO HS [facility] [place] Last Admin: 11/15/16 21:59 Dose: 40 mg Clonidine HCl (Catapres) 0.1 mg PO TID [facility] [place] Last Admin: 11/15/16 17:56 Dose: 0.1 mg Clopidogrel Bisulfate (Plavix) 75 mg PO DAILY [facility] [place] Last Admin: 11/15/16 09:19 Dose: 75 mg Cyanocobalamin (Vitamin B12 1000 Mcg Tab) 1,000 mcg PO DAILY [facility] Last Admin: 11/15/16 09:20 Dose: 1,000 mcg Dextrose (Dextrose 50% Inj) 0 ml IV STAT PRN; Protocol PRN Reason: Hyglycemia Protocol Dextrose (Glutose 15) 0 gm PO ONCE PRN; Protocol PRN Reason: Hypoglycemia Protocol Enalapril Maleate (Vasotec) 20 mg PO BID [facility] [place] Last Admin: 11/15/16 17:58 Dose: 20 mg Enoxaparin Sodium (Lovenox) 40 mg SC DAILY [facility] [place] PRN Reason: Protocol Last Admin: 11/15/16 09:19 Dose: Not Given Ferrous Sulfate (Feosol) 325 mg PO TID [facility] [place] Last Admin: 11/15/16 17:56 Dose: 325 mg Glucagon (Glucagen Diagnostic Kit) 0 mg IM STAT PRN; Protocol PRN Reason: Hypoglycemia Protocol Hydrochlorothiazide (Hydrodiuril) 25 mg PO DAILY [facility] [place] Last Admin: 11/15/16 09:16 Dose: 25 mg Hydromorphone HCl (Dilaudid) 2 mg IVP Q4 PRN PRN Reason: Pain, severe (8-10) Last Admin: 11/16/16 04:22 Dose: 2 mg Vancomycin HCl 1 gm/ Sodium (Chloride) 250 mls @ 166.667 mls/hr IVPB Q12 [facility] [place] Last Admin: 11/15/16 22:00 Dose: 166.667 mls/hr Piperacillin Sod/Tazobactam (Sod 3.375 gm/ Sodium Chloride) 100 mls @ 100 mls/ hr IVPB Q6 [facility] [place] Last Admin: 11/16/16 04:18 Dose: 100 mls/hr Insulin Detemir (Levemir) 80 units SC HS [facility] Last Admin: 11/15/16 22:08 Dose: 80 units Insulin Human Lispro (Humalog) 0 units SC ACHS [facility] [place] PRN Reason: Protocol Last Admin: 11/16/16 06:52 Dose: Not Given Insulin Human Lispro (Humalog) 30 units SC ACB [facility] Insulin Human Lispro (Humalog) 32 units SC ACL [facility] [place] Last Admin: 11/15/16 11:31 Dose: 32 unit Insulin Human Lispro (Humalog) 34 units SC ACD [facility] Last Admin: 11/15/16 17:00 Dose: 34 unit Isosorbide Mononitrate (Imdur) 60 mg PO DAILY [facility] Last Admin: 11/15/16 09:19 Dose: 60 mg Metoprolol Succinate (Toprol Xl) 200 mg PO DAILY [facility] [place] Last Admin: 11/15/16 09:20 Dose: 200 mg Morphine Sulfate (Morphine Extended Release Tab) 30 mg PO Q12@0900,2100 [facility] Last Admin: 11/15/16 21:59 Dose: 30 mg Ondansetron HCl (Zofran Inj) 4 mg IVP Q4 PRN PRN Reason: Nausea/Vomiting Senna/Docusate Sodium (Senokot S 50 Mg-8.6 Mg) 2 tab PO HS PRN PRN Reason: Constipation - Labs Labs: 11/15/16 06:30 11/16/16 06:00 PT 10.1 SECONDS (9.6-11.2) 11/11/16 13:30 INR 0.97 (0.92-1.08) 11/11/16 13:30 APTT 25.7 SECONDS (23.3-32.5) 11/11/16 13:30 - Constitutional Appears: Well, Non-toxic, No Acute Distress - Extremities Exam Additional comments: RLE focused exam: Dressing to foot appears c/d/i no strikethrough VASC- DP pulse 1/4, DP pulse 1/4, skin temp runs warm to warm, moderate non- pitting edema noted to dorsum of foot and distal aspect leg NEURO- gross sensation is diminished DERM- there is an open ulceration noted to distal-central aspect of foot stump which measures 2.0x1.0x0.3cm , wound bed is 80% granular/20% fibrotic, no drainage noted on compression, slight serous drainage seen to dressing, no purulence, no malodor, erythema noted to distal leg (chronic) ORTHO- previous amputations noted of all toes. Decreased dorsiflexion, with noted proment passive plantarflexed loaded and unloaded foot type. 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 Torres DPM. Chart, labs, vitals reviewed: afebrile. -Left foot x-rays reviewed: No radiographic evidence for acute osteomyelitis. -PICC line to be placed today, pt to under IV infusion abx on outpatinet basis w / use of line per ID. ^ week abx regiment recommendation noted. - Discussed with patient potential need for Tendo-Achilles lengthening to treat equinus component, leading to chronic ulceration of right foot amputation sites. - Cleansed and redressed wound with betadine wet-to-dry, & DSD. Post-op shoe reapplied, to be used during ambulation. Pt is stable from podiatry standpoint for discharge home. Pt to follow-up with Dr Macdonald on outpatient basis. Podiatry will follow while inhouse.
[2016-11-16] MEDS: Morphine 30 mg SR Tab PO SCH ×2 (08:48→22:46)
--- NOTE | 2016-11-16 09:59 | CP.PCM.PN ---
Subjective - Date & Time of Evaluation Date of Evaluation: 11/16/16 Time of Evaluation: 07:15 - Subjective Subjective: Patient seen at bedside in not acute distress. She is afebrile, denies vomiting , nausea, CP, palpitations, headaches. Reports that the pain is improved and localized to the bottom of her right foot. Patient's Humalog insulin dose increased yesterday. The patient is having adequate bowel movements and urination. The patient goes out of bed to chair without difficulty. Patient is tolerating PO. Patient is scheduled for PICC line placement today. Objective - Vital Signs/Intake and Output Vital Signs (last 24 hours): Temp Pulse Resp BP Pulse Ox 97.8 F 82 20 170/74 H 95 11/16/16 08:31 11/16/16 08:31 11/16/16 08:31 11/16/16 08:31 11/16/16 08:31 - Medications Medications: Current Medications Acetaminophen (Tylenol 325mg Tab) 650 mg PO Q4 PRN PRN Reason: Fever >100.4 F Alprazolam (Xanax) 0.25 mg PO BID PRN PRN Reason: Anxiety Stop: 11/18/16 16:56 Amlodipine Besylate (Norvasc) 5 mg PO DAILY [facility] Last Admin: 11/16/16 08:42 Dose: 5 mg Aspirin (Ecotrin) 81 mg PO DAILY [facility] Last Admin: 11/16/16 08:42 Dose: 81 mg Atorvastatin Calcium (Lipitor) 40 mg PO HS [facility] Last Admin: 11/15/16 21:59 Dose: 40 mg Clonidine HCl (Catapres) 0.1 mg PO TID [facility] Last Admin: 11/16/16 08:42 Dose: 0.1 mg Clopidogrel Bisulfate (Plavix) 75 mg PO DAILY [facility] Last Admin: 11/16/16 08:42 Dose: 75 mg Cyanocobalamin (Vitamin B12 1000 Mcg Tab) 1,000 mcg PO DAILY [facility] Last Admin: 11/16/16 08:42 Dose: 1,000 mcg Dextrose (Dextrose 50% Inj) 0 ml IV STAT PRN; Protocol PRN Reason: Hyglycemia Protocol Dextrose (Glutose 15) 0 gm PO ONCE PRN; Protocol PRN Reason: Hypoglycemia Protocol Enalapril Maleate (Vasotec) 20 mg PO BID [facility] Last Admin: 11/16/16 08:42 Dose: 20 mg Enoxaparin Sodium (Lovenox) 40 mg SC DAILY [facility] PRN Reason: Protocol Last Admin: 11/16/16 08:52 Dose: Not Given Ferrous Sulfate (Feosol) 325 mg PO TID [facility] Last Admin: 11/16/16 08:42 Dose: 325 mg Glucagon (Glucagen Diagnostic Kit) 0 mg IM STAT PRN; Protocol PRN Reason: Hypoglycemia Protocol Hydrochlorothiazide (Hydrodiuril) 25 mg PO DAILY [facility] Last Admin: 11/16/16 08:43 Dose: 25 mg Hydromorphone HCl (Dilaudid) 2 mg IVP Q4 PRN PRN Reason: Pain, severe (8-10) Last Admin: 11/16/16 08:48 Dose: 2 mg Vancomycin HCl 1 gm/ Sodium (Chloride) 250 mls @ 166.667 mls/hr IVPB Q12 [facility] Last Admin: 11/16/16 08:41 Dose: 166.667 mls/hr Piperacillin Sod/Tazobactam (Sod 3.375 gm/ Sodium Chloride) 100 mls @ 100 mls/ hr IVPB Q6 [facility] Last Admin: 11/16/16 09:04 Dose: 100 mls/hr Insulin Detemir (Levemir) 80 units SC HS [facility] Last Admin: 11/15/16 22:08 Dose: 80 units Insulin Human Lispro (Humalog) 0 units SC ACHS [facility] PRN Reason: Protocol Last Admin: 11/16/16 06:52 Dose: Not Given Insulin Human Lispro (Humalog) 30 units SC ACB [facility] Last Admin: 11/16/16 08:52 Dose: 30 unit Insulin Human Lispro (Humalog) 32 units SC ACL [facility] Last Admin: 11/15/16 11:31 Dose: 32 unit Insulin Human Lispro (Humalog) 34 units SC ACD [facility] Last Admin: 11/15/16 17:00 Dose: 34 unit Isosorbide Mononitrate (Imdur) 60 mg PO DAILY [facility] Last Admin: 11/16/16 08:42 Dose: 60 mg Metoprolol Succinate (Toprol Xl) 200 mg PO DAILY [facility] Last Admin: 11/16/16 08:43 Dose: 200 mg Morphine Sulfate (Morphine Extended Release Tab) 30 mg PO Q12@0900,2100 [facility] Last Admin: 11/16/16 08:48 Dose: 30 mg Ondansetron HCl (Zofran Inj) 4 mg IVP Q4 PRN PRN Reason: Nausea/Vomiting Senna/Docusate Sodium (Senokot S 50 Mg-8.6 Mg) 2 tab PO HS PRN PRN Reason: Constipation - Labs Labs: 11/15/16 06:30 11/16/16 06:00 PT 10.1 SECONDS (9.6-11.2) 11/11/16 13:30 INR 0.97 (0.92-1.08) 11/11/16 13:30 APTT 25.7 SECONDS (23.3-32.5) 11/11/16 13:30 - Constitutional Appears: No Acute Distress - Eye Exam Eye Exam: PERRL - ENT Exam ENT Exam: Mucous Membranes Moist - Neck Exam Neck Exam: Full ROM - Respiratory Exam Respiratory Exam: Clear to Ausculation Bilateral, NORMAL BREATHING PATTERN. absent: Rales, Wheezes - Cardiovascular Exam Cardiovascular Exam: REGULAR RHYTHM, +S1, +S2. absent: Murmur - GI/Abdominal Exam GI & Abdominal Exam: Soft. absent: Distended, Tenderness - Extremities Exam Extremities Exam: Pedal Edema (Bilateral.). absent: Calf Tenderness, Normal Inspection (L/leg and foot no acute lesions. No tenderness. R/leg covered with dressing. Capillary refil WNL. ) - Neurological Exam Neurological Exam: Alert, Awake, Oriented x3 - Skin Skin Exam: Normal Color Assessment and Plan - Assessment and Plan (Free Text) Assessment: The patient is a 51 y/o woman w/ PMH of IDDM II, HTN, CAD s/p stents and anemia admitted for right foot diabetic infection Plan: 1. Diabetic Foot - Infected Ulceration - Podiatry consulted, Dr. Macdonald; on board - ID consulted, Dr. Kiser; on board - Dr Kiser called today and recommended readjusting abx treatment for outpatient management anticipating possible DC tomorrow 11/17/16 Stop Vancomycin 1 gm IV Q12h Stop Piperacillin/Tazobactam 3.375 IV Q6h Patient will need 6 weeks total of abx treatment. Start Cubicin 6mg/kg IV daily Start Cipro 750mg BID PO(Dr Kiser aware of C&S results) - blood culture no growth x 48 hours - wound culture prelim: Coag neg Staph - MRI: possible osteomyelitis vs postsurgical changes vs charcot arthropathy - Pending clinical case manager tomorrow and possible DC home after Dr Kiser and Dr Vogel evaluation 2. Pain Management - follows up with Dr. Escobedo as outpatient - Pain management consulted, Dr. Becerra; on board - MS Contin 30 mg Q12h - Dilaudid 2 mg IV Q4h prn for pain 3. IDDMII - uncontrolled - A1C now 10%, previously 14.7% in 03/2016 - Endocrinology consulted, Dr. Vogel - Detemir HS and Insulin lispro sliding scale low dose ACHS managed by Dr Vogel( Statistician Mathematical) - accuchecks ACHS, hypoglycemia protocol 4. CAD s/p stents - continue w/ aspirin 81 mg PO daily, plavix 75 mg PO daily, lipitor 40 mg HS 5. HTN - uncontrolled, asymptomatic - Spoked with nurse to space out BP meds during the day before considering increasing dosage. - home meds: amlodipine 5 mg PO daily, enalapril 20 mg PO BID, HCTZ 25 mg PO daily, isosorbide mononitrate 60 mg PO daily, metoprolol succinate 200 mg PO daily - continue with clonidine 0.1mg TID - monitor 6. DVT prophylaxis - Lovenox 40 mg SC daily
[2016-11-16] MEDS ORDERED: Lidocaine 1% Inj (20ml) ONE (13:23)
--- NOTE | 2016-11-16 13:48 | PCM.SURG1 ---
Surgeon's Initial Post Op Note - Surgeon's Notes Surgeon: Gregory Giles MD Field Aide: NONE Type of Anesthesia: Local Pre-Operative Diagnosis: Poor venous access Operative Findings: US showed a patent right basilic vein. Post-Operative Diagnosis: Poor venous access Operation Performed: Right basilic vein single lumen picc placement, 37 cm. Tip in SVC. Specimen/Specimens Removed: None Estimated Blood Loss: EBL {In ML}: 2 Blood Products Given: N/A Drains Used: No Drains Post-Op Condition: Fair Date of Surgery/Procedure: 11/16/16 Time of Surgery/Procedure: 13:45
--- NOTE | 2016-11-16 15:59 | PN ---
DATE: 11/16/2016 ROOM: 668 This is a 51-year-old female with recent uncontrolled type 2 insulin-requiring diabetes, now being fo llowed closely for metabolic management. Her glycemic levels are still fluctuating and suboptimal at this time despite very hefty dose insulin requirements as noted and with expected increased insulin resistance thereof. Her glucose levels have ranged from 210-216 and 326 mg/dL. Her latest chemistry showed a BUN of 30, sodium 140, potassium 4.4, chloride 102, CO2 of 28, glucose 202 and creatinine 1 .1. So, at this time, we will modify ____ her basal and bolus insulin regimen and increase the Humalog to 34 units before meals breakfast and before meals lunch as ordered. We will also increase the Humalo g to 36 units before meals dinner to start today as given. We will modify and titrate her basal insu jose which is already a high dose of Levemir to be given as 90 units subQ at bedtime daily as ordered. We will continue the low-dose correction scale using Humalog insulin as given. We will titrate inc rementally as indicated to optimize metabolic control. We will follow and advise accordingly. Yesika Vogel MD cc: [id number] TT: 11/16/2016 15:58:24 Confirmation # [id number] Dictation # [id number]
[2016-11-16] MEDS: Saccharomyces Boulardi 250 mg Cap PO SCH (18:55)
[2016-11-16] MEDS ORDERED: Insulin Detemir 100 Units/ml Inj SC SCH (22:00)
[2016-11-17 00:14] VITALS: O2SAT 96
[2016-11-17] MEDS: Insulin Lispro (humaLOG) 100 Units/ml Inj SC SCH ×2 (06:43→12:18)
--- NOTE | 2016-11-17 07:15 | CP.PCM.PN ---
Subjective - Date & Time of Evaluation Date of Evaluation: 11/17/16 Time of Evaluation: 08:10 - Subjective Subjective: 51 yo diabetic female patient seen at bedside this morning to evaluate right foot ulceration. Pt's PICC line was inserted yesterday. Pt seen resting in bed at time of visit. Denies any acute overnight events. Sleeping well and tolerating diet. Says the pain is improved significantly and the redness and swelling has gone down remarkably. Denies f/n/v/c/sob/cp. Denies any other problems. Objective - Vital Signs/Intake and Output Vital Signs (last 24 hours): Temp Pulse Resp BP Pulse Ox 98.2 F 79 19 170/81 H 96 11/17/16 00:12 11/17/16 00:12 11/17/16 00:12 11/17/16 00:12 11/17/16 00:12 - Medications Medications: Current Medications Acetaminophen (Tylenol 325mg Tab) 650 mg PO Q4 PRN PRN Reason: Fever >100.4 F Alprazolam (Xanax) 0.25 mg PO BID PRN PRN Reason: Anxiety Stop: 11/18/16 16:56 Amlodipine Besylate (Norvasc) 5 mg PO DAILY [facility] Aspirin (Ecotrin) 81 mg PO DAILY [facility] Last Admin: 11/16/16 08:42 Dose: 81 mg Atorvastatin Calcium (Lipitor) 40 mg PO HS [facility] Last Admin: 11/16/16 21:39 Dose: 40 mg Ciprofloxacin (Cipro) 750 mg PO Q12 [facility] Last Admin: 11/16/16 21:39 Dose: 750 mg Clonidine HCl (Catapres) 0.1 mg PO TID@0900,1400,1800 [facility] Clopidogrel Bisulfate (Plavix) 75 mg PO DAILY [facility] Last Admin: 11/16/16 08:42 Dose: 75 mg Cyanocobalamin (Vitamin B12 1000 Mcg Tab) 1,000 mcg PO DAILY [facility] Last Admin: 11/16/16 08:42 Dose: 1,000 mcg Dextrose (Dextrose 50% Inj) 0 ml IV STAT PRN; Protocol PRN Reason: Hyglycemia Protocol Dextrose (Glutose 15) 0 gm PO ONCE PRN; Protocol PRN Reason: Hypoglycemia Protocol Enalapril Maleate (Vasotec) 20 mg PO 0900,2100 [facility] Last Admin: 11/16/16 21:39 Dose: 20 mg Enoxaparin Sodium (Lovenox) 40 mg SC DAILY [facility] PRN Reason: Protocol Last Admin: 11/16/16 17:12 Dose: Not Given Ferrous Sulfate (Feosol) 325 mg PO TID [facility] Last Admin: 11/16/16 17:09 Dose: 325 mg Glucagon (Glucagen Diagnostic Kit) 0 mg IM STAT PRN; Protocol PRN Reason: Hypoglycemia Protocol Hydrochlorothiazide (Hydrodiuril) 25 mg PO DAILY@1300 [facility] Hydromorphone HCl (Dilaudid) 2 mg IVP Q4 PRN PRN Reason: Pain, severe (8-10) Last Admin: 11/17/16 05:54 Dose: 2 mg Daptomycin 670 mg/ Sodium (Chloride) 100 mls @ 100 mls/hr IVPB DAILY [facility] Stop: 11/22/16 09:01 Insulin Detemir (Levemir) 90 units SC HS [facility] Last Admin: 11/16/16 22:49 Dose: 90 units Insulin Human Lispro (Humalog) 0 units SC ACHS [facility] PRN Reason: Protocol Last Admin: 11/17/16 06:43 Dose: Not Given Insulin Human Lispro (Humalog) 34 units SC ACB [facility] Insulin Human Lispro (Humalog) 34 units SC ACL [facility] Insulin Human Lispro (Humalog) 36 units SC ACD [facility] Last Admin: 11/16/16 17:11 Dose: 36 units Isosorbide Mononitrate (Imdur) 60 mg PO DAILY@1300 [facility] Metoprolol Succinate (Toprol Xl) 200 mg PO DAILY@1400 [facility] Morphine Sulfate (Morphine Extended Release Tab) 30 mg PO Q12@0900,2100 [facility] Last Admin: 11/16/16 22:46 Dose: 30 mg Ondansetron HCl (Zofran Inj) 4 mg IVP Q4 PRN PRN Reason: Nausea/Vomiting Saccharomyces Boulardii (Florastor) 250 mg PO BID [facility] Last Admin: 11/16/16 18:55 Dose: 250 mg Senna/Docusate Sodium (Senokot S 50 Mg-8.6 Mg) 2 tab PO HS PRN PRN Reason: Constipation - Labs Labs: 11/15/16 06:30 11/16/16 06:00 PT 10.1 SECONDS (9.6-11.2) 11/11/16 13:30 INR 0.97 (0.92-1.08) 11/11/16 13:30 APTT 25.7 SECONDS (23.3-32.5) 11/11/16 13:30 - Constitutional Appears: Well, Non-toxic, No Acute Distress - Extremities Exam Additional comments: RLE focused exam: Dressing to foot appears c/d/i no strikethrough VASC- DP pulse 1/4, DP pulse 1/4, skin temp runs warm to warm, moderate non- pitting edema noted to dorsum of foot and distal aspect leg NEURO- gross sensation is diminished DERM- there is an open ulceration noted to distal-central aspect of foot stump which measures 2.0x1.0x0.3cm , wound bed is 80% granular/20% fibrotic, no drainage noted on compression, slight serous drainage seen to dressing, no purulence, no malodor, erythema noted to distal leg (chronic) ORTHO- previous amputations noted of all toes. Decreased dorsiflexion, with noted proment passive plantarflexed loaded and unloaded foot type. 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 Chart, labs, vitals reviewed: afebrile. -Discussed with attending Dr. Macdonald, ERIC. -PICC line noted in place. Pt to recieve abx IV infusion on outpatinet basis w / use of line per ID. 6 week abx regiment recommendation noted. - Discussed with patient potential need for Tendo-Achilles lengthening to treat equinus component, leading to chronic ulceration of right foot amputation sites. - Cleansed and redressed wound with betadine wet-to-dry, & DSD. Post-op shoe reapplied, to be used during ambulation. Pt is stable from podiatry standpoint for discharge home. Pt to follow-up with Dr Macdonald on outpatient basis. Podiatry will follow while inhouse.
[2016-11-17] MEDS ORDERED: Insulin Lispro (humaLOG) 100 Units/ml Inj SC SCH ×3 (07:30→11:30)
[2016-11-17 08:04] LABS: HEMATOCRIT 28.1 % (34.0-47.0); MEAN CELL VOLUME 79.9 fl (81.0-99.0); MEAN CORPUSCULAR HEMOGLOBIN 26.7 pg (27.0-31.0); MEAN CORPUSCULAR HGB CONC 33.4 g/dL (33.0-37.0); RED CELL DISTRIBUTION WIDTH 15.8 % (11.5-14.5); WHITE BLOOD COUNT 7.5 K/uL (4.8-10.8)
[2016-11-17 08:11] LABS: BLOOD UREA NITROGEN 29 mg/dl (7-17); CALCIUM 9.6 mg/dL (8.4-10.2); CARBON DIOXIDE 31 mmol/L (22-30); CHLORIDE 101 mmol/L (98-107); GFR AFRICAN-AMERICAN > 60; GLUCOSE,RANDOM 208 mg/dL (65-105); POTASSIUM 4.4 MMOL/L (3.6-5.0); SODIUM 141 mmol/l (132-148)
[2016-11-17 08:32] VITALS: BP 173/94; PULSE 80; RESP 20; TEMP 98.8
[2016-11-17] MEDS ORDERED: DAPTOmycin 670 MG in Sodium Chloride 0.9% 100 ML IVPB SCH (09:00)
[2016-11-17] MEDS: Saccharomyces Boulardi 250 mg Cap PO SCH (09:58)
[2016-11-17] MEDS: Enoxaparin 40 mg Syringe SC SCH ×2 (10:01→10:08)
[2016-11-17] MEDS: Morphine 30 mg SR Tab PO SCH (10:12)
--- NOTE | 2016-11-17 10:17 | CP.PCM.DIS ---
Provider - Provider Date of Admission: 11/11/16 15:10 Attending physician: Jennifer Ash MD Primary care physician: Dr Doshi Consults: Dr Vogel(Endo) Dr Kiser(ID) Dr Becerra(Pain management) Dr Macdonald(Podiatry) Time Spent in preparation of Discharge (in minutes): 40 Diagnosis - Discharge Diagnosis (1) Foot ulcer Status: Chronic Comment: F/U with Dr Macdonald in 1 week. Cont abx (2) Cellulitis of leg Status: Acute Comment: Improved. Cont abx (3) Diabetes mellitus with hyperglycemia Status: Chronic Comment: Evalauted by Dr Vogel. Home insulin dose adjusted (4) Essential hypertension Status: Chronic Comment: Cont home meds. F/U with PMD (5) Osteomyelitis of ankle and foot Status: Suspected Comment: 6 weeks abx treatment. PICC line in place. CPK weekly. F/U with Dr Kiser in 10 days Hospital Course - Lab Results Lab Results: Micro Results 11/11/16 21:56 Foot - Right Gram Stain - Final 11/11/16 21:56 Foot - Right Wound Culture - Final Coagulase Neg Staphylococcus Most Recent Lab Values WBC 7.5 K/uL (4.8-10.8) 11/17/16 07:30 RBC 3.52 Mil/uL (3.80-5.20) L 11/17/16 07:30 Hgb 9.4 g/dL (12.0-16.0) L 11/17/16 07:30 Hct 28.1 % (34.0-47.0) L 11/17/16 07:30 MCV 79.9 fl (81.0-99.0) L 11/17/16 07:30 MCH 26.7 pg (27.0-31.0) L 11/17/16 07:30 MCHC 33.4 g/dL (33.0-37.0) 11/17/16 07:30 RDW 15.8 % (11.5-14.5) H 11/17/16 07:30 Plt Count 352 K/uL (130-400) 11/17/16 07:30 MPV 7.2 fl (7.2-11.7) 11/15/16 06:30 Neut % (Auto) 71.8 % (50.0-75.0) 11/15/16 06:30 Lymph % (Auto) 16.5 % (20.0-40.0) L 11/15/16 06:30 [place] % (Auto) 7.1 % (0.0-10.0) 11/15/16 06:30 Eos % (Auto) 3.6 % (0.0-4.0) 11/15/16 06:30 Baso % (Auto) 1.0 % (0.0-2.0) 11/15/16 06:30 Neut # 4.7 K/uL (1.8-7.0) 11/15/16 06:30 Lymph # 1.1 K/uL (1.0-4.3) 11/15/16 06:30 [place] # 0.5 K/uL (0.0-0.8) 11/15/16 06:30 Eos # 0.2 K/uL (0.0-0.7) 11/15/16 06:30 Baso # 0.1 K/uL (0.0-0.2) 11/15/16 06:30 PT 10.1 SECONDS (9.6-11.2) 11/11/16 13:30 INR 0.97 (0.92-1.08) 11/11/16 13:30 APTT 25.7 SECONDS (23.3-32.5) 11/11/16 13:30 pO2 21 mm/Hg (30-55) L 11/11/16 14:00 VBG pH 7.33 (7.32-7.43) 11/11/16 14:00 VBG pCO2 63 mmHg (40-60) H 11/11/16 14:00 VBG HCO3 27.2 mmol/L 11/11/16 14:00 VBG Total CO2 35.1 mmol/L (22-28) H 11/11/16 14:00 VBG O2 Sat (Calc) 36.9 % (40-65) L 11/11/16 14:00 VBG Base Excess 5.3 mmol/L (0.0-2.0) H 11/11/16 14:00 VBG Potassium 4.0 mmol/L (3.6-5.2) 11/11/16 14:00 Sodium 136.0 mmol/L (132-148) 11/11/16 14:00 Chloride 98.0 mmol/L (98-107) 11/11/16 14:00 Glucose 252 mg/dL (65-105) H 11/11/16 14:00 Lactate 1.7 mmol/L (0.7-2.1) 11/11/16 14:00 FiO2 21.0 % 11/11/16 14:00 Sodium 141 mmol/l (132-148) 11/17/16 07:30 Potassium 4.4 MMOL/L (3.6-5.0) 11/17/16 07:30 Chloride 101 mmol/L (98-107) 11/17/16 07:30 Carbon Dioxide 31 mmol/L (22-30) H 11/17/16 07:30 Anion Gap 13 (10-20) 11/17/16 07:30 BUN 29 mg/dl (7-17) H 11/17/16 07:30 Creatinine 1.0 mg/dL (0.7-1.2) 11/17/16 07:30 Est GFR ( Amer) > 60 11/17/16 07:30 Est GFR (Non-Af Amer) 58 11/17/16 07:30 POC Glucose (mg/dL) 235 mg/dL (65-110) H 11/17/16 05:41 Random Glucose 208 mg/dL (65-105) H 11/17/16 07:30 Hemoglobin A1c 10.2 % (4.2-6.5) H D 11/12/16 06:45 Calcium 9.6 mg/dL (8.4-10.2) 11/17/16 07:30 Phosphorus 4.2 mg/dl (2.5-4.5) 11/11/16 13:30 Magnesium 2.0 MG/DL (1.6-2.3) 11/11/16 13:30 Total Bilirubin 0.2 mg/dl (0.2-1.3) 11/15/16 06:00 AST 17 U/L (14-36) 11/15/16 06:00 ALT 19 U/L (9-52) 11/15/16 06:00 Alkaline Phosphatase 103 U/L (38-126) 11/15/16 06:00 Troponin I < 0.0120 ng/mL (0.00-0.120) 11/11/16 13:30 Total Protein 7.3 G/DL (6.3-8.2) 11/15/16 06:00 Albumin 3.4 g/dL (3.5-5.0) L 11/15/16 06:00 Globulin 3.9 gm/dL (2.2-3.9) 11/15/16 06:00 Albumin/Globulin Ratio 0.9 (1.0-2.1) L 11/15/16 06:00 Triglycerides 293 mg/DL (0-149) H D 11/12/16 06:45 Cholesterol 201 mg/dL (0-199) H 11/12/16 06:45 LDL Cholesterol Direct 95 mg/dL (0-129) 11/12/16 06:45 HDL Cholesterol 35 MG/DL (30-70) 11/12/16 06:45 Venous Blood Potassium 4.0 mmol/L (3.6-5.2) 11/11/16 14:00 Vancomycin Trough 15.1 ug/mL (5.0-10.0) H 11/15/16 10:45 - Hospital Course Hospital Course: 51 yo F with PMH of IDDMII, HTN, CAD s/p stents, and anemia presented to hosp c/ o right foot ulcer and infection. She was seen by her forge tender and tried Augmentin PO without much improvement. Patient was admitted to hosp. 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 She was evaluated by Podiatry, ID and Endocrinology, started with abx for osteomyelitis(Zosyn, Vanco) , received daily wound cares, wound Cx grew Coag neg Staph, PICC line placed and after showing improvement she is being discharge home today, stable, to complete 6 weeks of abx treatment(Cipro, Daptomycin) and f/u with ID, Podiatry and PMD as outpatient. Home meds Hydrochlorothiazide [HCTZ] 25 mg PO DAILY Ferrous Sulfate [Feosol] 325 mg PO BID Clopidogrel [Plavix] 75 mg PO DAILY Atorvastatin Calcium [Lipitor] 40 mg PO HS Enalapril Maleate 20 mg PO BID Metoprolol Succinate [Toprol XL] 200 mg PO Q12H oxyCODONE [oxyCODONE Immediate 30 mg PO Q6H PRN Morphine Sulfate [Morphine Sulfate 30 mg PO Q12H cloNIDine [Catapres] 0.1 mg PO BID #0 tab Alprazolam [Xanax] 0.5 mg PO BID PRN Insulin Detemir [Levemir] 90 unit SUBCUT HS (Change) Insulin Lispro [Humalog) 36 unit SQ AC before meals (Change) amLODIPine [Norvasc] 5 mg PO DAILY Aspirin [Ecotrin] 81 mg PO DAILY tabec oxyCODONE/Acetaminophen [Percocet 1 ea PO Q4 5/325 mg Tab] Cipro 750mg BID PO for 6 weeks (New) Daptomycin 6mg/kg 670mg IV daily (New) Discharge Exam - Head Exam Head Exam: NORMOCEPHALIC - Eye Exam Eye Exam: PERRL - ENT Exam ENT Exam: Mucous Membranes Moist - Neck Exam Neck exam: Full Rom - Respiratory Exam Respiratory Exam: Clear to PA & Lateral, NORMAL BREATHING PATTERN. absent: Rales, Wheezes - Cardiovascular Exam Cardiovascular Exam: REGULAR RHYTHM, +S1, +S2. absent: Gallop, Systolic Murmur - GI/Abdominal Exam GI & Abdominal Exam: Unremarkable - Extremities Exam Additional comments: R/foot covered with dressing. Leg cellulitis improved. - Neurological Exam Neurological exam: Alert, CN II-XII Intact, Oriented x3 - Skin Skin Exam: Warm Discharge Plan - Discharge Medications Prescriptions: DAPTOmycin [Cubicin] 670 mg IV DAILY 42 Days Insulin Lispro [Humalog (Insulin Lispro)] 36 unit SQ TID #1 cartridge - Follow Up Plan Condition: FAIR Disposition: HOME/ ROUTINE Instructions: Cellulitis (DC), Cellulitis (GEN), Hypertension (DC), Hypertension (GEN) Additional Instructions: Patient to cont abx treatment at home to complete 6 weeks as follow: Cubicin 670mg daily IV Cipro 750mg BID PO CPK weekly and results will be faxed to Dr Kiser F/U with Dr Kiser in 10 days with CPK results F/U with Dr Macdonald(Podiatry) in 1 week F/U with PMD Dr Doshi within 1 week Removed PICC line when abx treatment finish
--- NOTE | 2016-11-17 12:19 | CP.PCM.PN ---
Subjective - Date & Time of Evaluation Date of Evaluation: 11/17/16 Time of Evaluation: 09:00 - Subjective Subjective: discussed on rounds for d/c home on IV rx Objective - Vital Signs/Intake and Output Vital Signs (last 24 hours): Temp Pulse Resp BP Pulse Ox 98.8 F 80 20 173/94 H 96 11/17/16 08:31 11/17/16 09:50 11/17/16 08:31 11/17/16 09:50 11/17/16 08:31 - Medications Medications: Current Medications Acetaminophen (Tylenol 325mg Tab) 650 mg PO Q4 PRN PRN Reason: Fever >100.4 F Alprazolam (Xanax) 0.25 mg PO BID PRN PRN Reason: Anxiety Stop: 11/18/16 16:56 Amlodipine Besylate (Norvasc) 5 mg PO DAILY [facility] Aspirin (Ecotrin) 81 mg PO DAILY [facility] Last Admin: 11/17/16 09:53 Dose: 81 mg Atorvastatin Calcium (Lipitor) 40 mg PO HS [facility] Last Admin: 11/16/16 21:39 Dose: 40 mg Ciprofloxacin (Cipro) 750 mg PO Q12 [facility] Last Admin: 11/17/16 09:51 Dose: 750 mg Clonidine HCl (Catapres) 0.1 mg PO TID@0900,1400,1800 [facility] Last Admin: 11/17/16 09:50 Dose: 0.1 mg Clopidogrel Bisulfate (Plavix) 75 mg PO DAILY [facility] Last Admin: 11/17/16 10:02 Dose: 75 mg Cyanocobalamin (Vitamin B12 1000 Mcg Tab) 1,000 mcg PO DAILY [facility] Last Admin: 11/17/16 10:03 Dose: 1,000 mcg Dextrose (Dextrose 50% Inj) 0 ml IV STAT PRN; Protocol PRN Reason: Hyglycemia Protocol Dextrose (Glutose 15) 0 gm PO ONCE PRN; Protocol PRN Reason: Hypoglycemia Protocol Enalapril Maleate (Vasotec) 20 mg PO 0900,2100 [facility] Last Admin: 11/17/16 10:03 Dose: 20 mg Enoxaparin Sodium (Lovenox) 40 mg SC DAILY [facility] PRN Reason: Protocol Last Admin: 11/17/16 10:08 Dose: Not Given Ferrous Sulfate (Feosol) 325 mg PO TID [facility] Last Admin: 11/17/16 10:14 Dose: 325 mg Glucagon (Glucagen Diagnostic Kit) 0 mg IM STAT PRN; Protocol PRN Reason: Hypoglycemia Protocol Hydrochlorothiazide (Hydrodiuril) 25 mg PO DAILY@1300 [facility] Hydromorphone HCl (Dilaudid) 2 mg IVP Q4 PRN PRN Reason: Pain, severe (8-10) Last Admin: 11/17/16 09:56 Dose: 2 mg Daptomycin 670 mg/ Sodium (Chloride) 100 mls @ 100 mls/hr IVPB DAILY [facility] Stop: 11/22/16 09:01 Last Admin: 11/17/16 09:52 Dose: 100 mls/hr Insulin Detemir (Levemir) 90 units SC HS [facility] Last Admin: 11/16/16 22:49 Dose: 90 units Insulin Human Lispro (Humalog) 0 units SC ACHS [facility] PRN Reason: Protocol Last Admin: 11/17/16 06:43 Dose: Not Given Insulin Human Lispro (Humalog) 36 units SC ACD [facility] Last Admin: 11/16/16 17:11 Dose: 36 units Insulin Human Lispro (Humalog) 36 units SC ACB [facility] Insulin Human Lispro (Humalog) 36 units SC ACL [facility] Isosorbide Mononitrate (Imdur) 60 mg PO DAILY@1300 [facility] Metoprolol Succinate (Toprol Xl) 200 mg PO DAILY@1400 [facility] Morphine Sulfate (Morphine Extended Release Tab) 30 mg PO Q12@0900,2100 [facility] Last Admin: 11/17/16 10:12 Dose: 30 mg Ondansetron HCl (Zofran Inj) 4 mg IVP Q4 PRN PRN Reason: Nausea/Vomiting Saccharomyces Boulardii (Florastor) 250 mg PO BID [facility] Last Admin: 11/17/16 09:58 Dose: 250 mg Senna/Docusate Sodium (Senokot S 50 Mg-8.6 Mg) 2 tab PO HS PRN PRN Reason: Constipation - Labs Labs: 11/17/16 07:30 11/17/16 07:30 PT 10.1 SECONDS (9.6-11.2) 11/11/16 13:30 INR 0.97 (0.92-1.08) 11/11/16 13:30 APTT 25.7 SECONDS (23.3-32.5) 11/11/16 13:30 Assessment and Plan (1) Foot ulcer Status: Chronic (2) Diabetic foot ulcer Status: Acute
[2016-11-17] MEDS ORDERED: Metoprolol Succinate 100 mg XL Tab PO SCH (13:00)
--- NOTE | 2016-11-17 13:57 | VASCULAR ---
PROCEDURE: Date of procedure: 11/16/2016 Procedure: 1. Placement of a right arm PICC with ultrasound and fluoroscopic guidance, CPT 99810 2. PICC tip confirmation with spot radiograph and is in the superior vena cava Medications: 4 cc 1 percent lidocaine Total Fluoro time: 5.5 seconds Radiation: 0.86 mGy EBL: 2 cc HISTORY: Poor venous access TECHNIQUE: Following informed consent and procedure time-out, the patient was placed supine on the interventional table and the right arm prepped and draped in the usual sterile fashion. Ultrasound showed a patent and compressible right basilic vein. After the skin was anesthetized with lidocaine, the basilic vein was accessed with micro micropuncture technique using ultrasound guidance. A guidewire was then advanced under fluoroscopic guidance into the superior vena cava. An image documenting ultrasound guidance for vascular access was permanently saved. The length of the single-lumen 4 [place] PICC was trimmed to 37 centimeters and advanced through a peel-away sheath. The PICC was position with tip of PICC confirm a spot radiograph the superior vena cava. The PICC was secured to the patient's skin. The PICC was flushed. A biopatch and sterile dressing was applied. IMPRESSION: Placement of a single-lumen 4 [place] PICC trimmed to 37 centimeters via right basilic vein. The tip of the PICC is confirmed with spot radiograph and is in the superior vena cava.
--- NOTE | 2016-11-17 15:37 | PN ---
DATE: 11/17/2016 ROOM: 668. This is a 51-year-old female with recent uncontrolled type 2 insulin-requiring diabetes, now being fo llowed closely for metabolic management. She underwent IV antibiotics and local debridement procedur es of a neuropathic right foot ulceration as noted thereof. Her latest chemistry showed a BUN of 29, sodium 141, potassium 4.4, chloride 101, CO2 31, glucose 208 and creatinine 1.0. Her glucose levels have ranged from 219-235 and 242 mg/dL. So at this time, will actually modify her basal and bolus i nsulin regimen and recommend for eventual discharge to same modified insulin combination as ordered. Would recommend Levemir given as 90 units subQ at bedtime daily to start tonight. We will also deandre mmend Humalog given as 36 units subQ t.i.d. before meals as ordered. We will titrate incrementally a s indicated to optimize metabolic control. We will follow. Yesika Vogel MD cc: [id number] TT: 11/17/2016 15:35:52 Confirmation # [id number] Dictation # [id number] rahel
[2016-11-18] MEDS ORDERED: Insulin Lispro (humaLOG) 100 Units/ml Inj SC SCH (07:30)
== END 2016-11-17 14:31 | disposition home health service (06) | DRG 74 ==
LOC: H.ER 12:25 → H.ERHOLD 15:10 → H.MEDSURG1 18:28
PROVIDERS: ADMIT Family Medicine Geriatric Medicine; ATTEND Family Medicine Geriatric Medicine
PROC: 02HV33Z Insertion of Infusion Device into Superior Vena Cava, Percutaneous Approach (ICD-10-PCS; principal; 2016-11-16)
PROC: B518ZZA Fluoroscopy of Superior Vena Cava, Guidance (ICD-10-PCS; 2016-11-16)
PROC: 3E04329 Introduction of Other Anti-infective into Central Vein, Percutaneous Approach (ICD-10-PCS; 2016-11-16)
DX: E10.42 Type 1 diabetes mellitus with diabetic polyneuropathy (principal); L03.115 Cellulitis of right lower limb; E10.621 Type 1 diabetes mellitus with foot ulcer; L97.519 Non-pressure chronic ulcer of other part of right foot with unspecified severity; E10.610 Type 1 diabetes mellitus with diabetic neuropathic arthropathy; E10.65 Type 1 diabetes mellitus with hyperglycemia; E10.319 Type 1 diabetes mellitus with unspecified diabetic retinopathy without macular edema; B95.7 Other staphylococcus as the cause of diseases classified elsewhere; I25.10 Atherosclerotic heart disease of native coronary artery without angina pectoris; E78.5 Hyperlipidemia, unspecified; E78.00 Pure hypercholesterolemia, unspecified; Z95.5 Presence of coronary angioplasty implant and graft; D64.9 Anemia, unspecified; G89.29 Other chronic pain; I73.9 Peripheral vascular disease, unspecified; F41.9 Anxiety disorder, unspecified; Z89.421 Acquired absence of other right toe(s); Z79.4 Long term (current) use of insulin; Z88.6 Allergy status to analgesic agent; Z86.73 Personal history of transient ischemic attack (TIA), and cerebral infarction without residual deficits; Z87.891 Personal history of nicotine dependence

== ENCOUNTER 2016-12-21 07:24 | Day surgery (SDC) | payer OTHER ==
[2016-12-18 17:11] VITALS: BMI 37.4
[2016-12-21 08:24] VITALS: RESP 18
--- NOTE | 2016-12-21 08:24 | CP.SDSHP ---
Same Day Surgery H & P - History Proposed Procedure: right achilles tendon lengthening wiht graft application Pre-Op Diagnosis: right foot nonhealing wound - Allergies Allergies: Allergies morphine Adverse Reaction (Verified 12/18/16 17:11) NAUSEA - Physical Exam Vital Signs: Vital Signs 12/21/16 08:15 Pulse Rate 72 - {Optional Preform as Required} Integument: WNL - Impression Impression: Pt was seen and examined in SDS. Pt NPO status was confirmed. All Pre-op testing and clearance was in the chart. Pt has exhausted all conservative treatment at this time and is opting for surgical intervention. Pt was explained procedure and post-operative course. All pt's questions were answered to satisfaction. No guarantees were made. Pt understands all risks, benefits and complications of procedure. Pt will follow-up with Dr. Macdonald - Date & Time Date: 12/21/16 Time: 08:24 Short Stay Discharge - Short Stay Discharge Admitting Diagnosis/Reason for Visit: M21.961 [id number] Disposition: HOME/ ROUTINE Referrals: FAMILY PROVIDER,NO [Primary Care Provider] - Follow-up: please follow up with Dr. Macdonald in 1 week Instructions: RICE Therapy (GEN) Additional Instructions (Diet, Activity): keep dressing c/d/i until follow up visit ice and elevate as nessary continue pain meds prn for pain Progress Note/Discharge Note with Instructions: --Patient in good/stable condition for discharge home. Pt to resume medications per medical reconciliation. Resume regular diet. Please keep dressing clean, dry, & intact to surgical site, use plastic bag over bandage for showering, wear post op shoe at all times when ambulating, call clinic if you see signs of infection (redness, swelling, malodor), please make an appointment to see in office within 1 week for post-op check.
--- NOTE | 2016-12-21 08:27 | CP.PCM.PN ---
Subjective - Date & Time of Evaluation Date of Evaluation: 12/21/16 Time of Evaluation: 08:24 - Subjective Subjective: 51 y/o female seen at bedside in [facility] for pre operative evaluation of right foot nonhealing ulcer. Patient appears in NAD and AAOx3. Patient going to OR for R achilles tendon lengthening with graft application. She denies n/f/v/c/d/sob. Ptient has not had anything to eat or drink past 7pm last night. Patient denies any other acute events overnight pmhx: DM, HTN, hypercholesterolemia, anemia, CAD s/p stents pshx:stents, cyst removal from ovaries, TMA of R foot, appendectomy SH: denies etoh or tobacco use All: morphine Objective - Vital Signs/Intake and Output Vital Signs (last 24 hours): Temp Pulse Resp BP Pulse Ox 98.7 F 72 18 144/73 99 12/21/16 08:23 12/21/16 08:23 12/21/16 08:23 12/21/16 08:23 12/21/16 08:23 - Constitutional Appears: Well, Non-toxic, No Acute Distress - Extremities Exam Additional comments: dressing to R LE remains c/d/i no calf pain or tenderness - Neurological Exam Neurological Exam: Alert, Awake, Oriented x3 - Psychiatric Exam Psychiatric exam: Normal Affect, Normal Mood Assessment and Plan - Assessment and Plan (Free Text) Assessment: 51 y/o female going to OR today for right achilles tendon lengthening and graft application by Dr. Macdonald Plan: Pt was seen and examined in [facility] Pt NPO status was confirmed All Pre-op testing and clearance was in the chart Pt has exhausted all conservative treatment at this time and is opting for surgical intervention Pt was explained procedure and post-operative course All pt's questions were answered to satisfaction No guarantees were made Pt understands all risks, benefits and complications of procedure Pt will follow-up with
[2016-12-21] MEDS ORDERED: ceFAZolin 1 GM in Sodium Chloride 0.9% 100 ML IVPB ONE (08:29)
[2016-12-21] MEDS ORDERED: Lidocaine 1% Inj (20ml) IJ ONE ×2 (08:29→10:14)
[2016-12-21] MEDS ORDERED: Bupivacaine 0.5% Inj(30mL) IJ ONE ×3 (08:29→10:30)
[2016-12-21] MEDS ORDERED: Sodium Chloride 0.9% 500 ML IV SCH (08:30)
[2016-12-21] MEDS ORDERED: Propofol 10 mg/ml Inj (20 ML) ONE (08:53)
[2016-12-21] MEDS ORDERED: Midazolam 2 MG/2 ML VIAL ONE ×2 (08:53→10:00)
[2016-12-21] MEDS ORDERED: Lactated Ringer's 1,000 ML IV ONE (10:07)
[2016-12-21] MEDS ORDERED: Oxycodone/Acetaminophen 5/325 mg Tab PO PRN ×2 (10:40)
--- NOTE | 2016-12-21 10:40 | PCM.SURG1 ---
Surgeon's Initial Post Op Note - Surgeon's Notes Surgeon: Dr. Macdonald Sagger Preparer: Dr. Hoffmann PGY-2 Type of Anesthesia: IV Sedation, Local Anesthesia Administered By: Dr. Hines Pre-Operative Diagnosis: R foot nonhealing wound, equinus Operative Findings: see dictation. 17 mL 1:1 mix 1% lidocaine plain, 0.5% marcaine plain Post-Operative Diagnosis: same Operation Performed: right achilles tendon lengthening with graft application Specimen/Specimens Removed: none Estimated Blood Loss: EBL {In ML}: 2 Blood Products Given: N/A Drains Used: No Drains Post-Op Condition: Good Date of Surgery/Procedure: 12/21/16 Time of Surgery/Procedure: 10:00
[2016-12-21] MEDS: HYDROmorphone 0.5 mg/0.5 ml ISec IVP PRN ×2 (10:45→11:20)
[2016-12-21] MEDS ORDERED: Lidocaine 1% Inj (20ml) ONE (10:57)
[2016-12-21] MEDS ORDERED: Insulin Regular 100 units/ml SC SCH (11:15)
[2016-12-21 12:16] VITALS: O2SAT 99
[2016-12-21] MEDS ORDERED: Oxycodone/Acetaminophen 5/325 mg Tab PO ONE (12:50)
[2016-12-21 14:22] VITALS: BP 132/68; PULSE 76; TEMP 97.4
--- NOTE | 2016-12-22 08:47 | OP ---
PROCEDURE DATE: 12/21/2016 SURGEON: Dr. James Macdonald. RETIREMENT ASSISTANT: Didi Hoffmann, PGY-2. PREOPERATIVE DIAGNOSES: 1. 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 2. Equinus. POSTOPERATIVE DIAGNOSES: 1. 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 2. Equinus. NAME OF PROCEDURE: 1. Right foot percutaneous tendo Achilles lengthening. 2. Right foot wound debridement with graft application. ANESTHESIA: IV sedation with local anesthesia. ANESTHESIOLOGIST: Dr. Hines. INDICATIONS: The patient is a 51-year-old female with the above-mentioned diagnoses. The patient has exhausted conservative treatment at this time and is now requesting surgical intervention. The patient signed the consent after careful explanation of risks, benefits, complications and alternatives for surgical procedure. No guarantees were given nor implied. Two grams of Ancef IV were given to patient prior to the procedure. N.p.o. status was confirmed prior to taking the patient to the operating room. PREPARATION: The patient was brought to the operating room and placed on the operating table in prone position. After induction of IV sedation, a total of 18 mL of a 1:1 mixture of 0.5% Marcaine and 1% lidocaine plain were injected in local block fashion to the right ankle. The right foot was then prepped and draped in the usual sterile manner and the procedure began. PROCEDURE #1: Right percutaneous tendo-Achilles lengthening: Attention was directed to the posterior aspect of the right ankle at the level of the Achilles tendon. The incision sites were measured out using a ruler. The first incision was created approximately 2 cm proximal to the insertion of the Achilles tendon on the calcaneus. A #15 blade was used to make the incision. The blade was inserted vertically, making a stab through the tendon and was then turned horizontally in order to transect the medial portion of the tendon. Next, the second incision was created approximately 3 cm proximal to the first one. This incision was made laterally. Again, the #15 blade was inserted centrally in a vertical position and was then turned horizontally in order to transect the lateral portion of the tendon. A third incision was created roughly 3 cm proximal to the second. Once again, the #15 blade was inserted vertically at the central portion of the tendon and was turned medially in order to transect the medial portion of the Achilles tendon. Then, the foot was dorsiflexed on the ankle in order to achieve lengthening. The dorsiflexion range of motion was noted to be greatly improved after lengthening. The wounds were copiously irrigated with normal sterile saline and the incision sites were closed using 4- 0 Prolene. PROCEDURE #2: Right foot wound debridement and graft application: Attention was directed to the dorsal aspect of the right foot TMA site. The ulceration was sharply debrided using a #15 blade down to healthy bleeding tissue. Next, the Neox Cord graft was applied over the ulceration. This was sutured down using 4-0 Prolene to the surrounding skin. The wound was dressed using Adaptic , 4 x 4s, Kerlix. POSTOPERATIVE CONDITION: The patient tolerated the anesthesia and procedure well and was escorted to recovery room with vital signs stable and neurovascular status intact to the right foot. The patient will follow up with Dr. James Macdonald in his office next week. Didi Hoffmann DPM James Macdonald DPM cc: [id number] TT: 12/21/2016 22:19:48 sd 12/22/2016 00:59:17 JAQUELIN
== END 2016-12-21 14:25 | disposition home or self-care (01) ==
LOC: H.OPSURG 07:24
PROVIDERS: ATTEND Student in an Organized Health Care Education/Training Program
DX: T87.89 Other complications of amputation stump (principal); M21.961 Unspecified acquired deformity of right lower leg; M21.541 Acquired clubfoot, right foot; I25.10 Atherosclerotic heart disease of native coronary artery without angina pectoris; I11.0 Hypertensive heart disease with heart failure; I50.9 Heart failure, unspecified; E11.9 Type 2 diabetes mellitus without complications; E78.5 Hyperlipidemia, unspecified; I25.2 Old myocardial infarction; Z86.73 Personal history of transient ischemic attack (TIA), and cerebral infarction without residual deficits
CPT/HCPCS: 15004; 15275; 28899; 82948; 97161; G8978; G8979; G8980; J0690; J1170; J2001; J2250; J2704; J3010; J7030; J7040; J7120; Q4148

== ENCOUNTER 2017-04-15 00:14 | Emergency (ER) | payer OTHER ==
[2017-04-15 00:14] VITALS: BMI 37.4
[2017-04-15] MEDS ORDERED: Oxycodone/Acetaminophen 5/325 mg Tab PO STA (00:45)
[2017-04-15 00:55] VITALS: O2SAT 98
--- NOTE | 2017-04-15 01:11 | ED PDOC ---
Lower Extremity Pain/Injury Time Seen by Provider: 04/15/17 00:27 Chief Complaint (Nursing): Lower Extremity Problem/Injury Chief Complaint (Provider): Lower extremity problem History Per: Patient History/Exam Limitations: no limitations Onset/Duration Of Symptoms: Days (x1), Worse Since (x1) Current Symptoms Are (Timing): Still Present Additional Complaint(s): Zelda Jones is a 51 year old female, with a past medical history of diabetes, who presents to the emergency department complaining of chronic lower extremity swelling associated with worsening redness and pain onset for 1 day. She was asked for a follow up by Dr. Macdonald, [employer]. Patient denies any fever , chills, chest pain, shortness of breath or trauma. No further medical complaints. PMD: Sarath Doshi Past Medical History Reviewed: Historical Data, Nursing Documentation, Vital Signs Vital Signs: Last Vital Signs Temp 98.8 F 04/15/17 00:22 Pulse 94 H 04/15/17 00:22 Resp 17 04/15/17 00:22 BP 150/89 04/15/17 00:22 Pulse Ox 98 04/15/17 00:22 - Medical History PMH: Anemia, Anxiety, Arthritis, Back Problems (herniated disks), CAD, CVA, Diabetes (type I), HTN, Hypercholesterolemia, Hyperlipidemia Denies: CHF, COPD, HIV, Hypothyroidism, Chronic Kidney Disease, Rheumatoid Arthritis - Surgical History Surgical History: Appendectomy, Coronary Stent - Family History Family History: States: Unknown Family Hx - Immunization History Hx Tetanus Toxoid Vaccination: No Hx Influenza Vaccination: No Hx Pneumococcal Vaccination: No - Home Medications Home Medications: Ambulatory Orders Medication Instructions Recorded Ferrous Sulfate [Feosol] 325 mg PO TID 02/23/14 Clopidogrel [Plavix] 75 mg PO DAILY 06/19/14 Atorvastatin Calcium [Lipitor] 40 mg PO HS 10/22/14 Enalapril Maleate 20 mg PO BID 10/22/14 Metoprolol Succinate [Toprol XL] 200 mg PO Q12H 05/28/15 oxyCODONE [oxyCODONE Immediate 30 mg PO Q6H PRN 05/28/15 Release Tab] Morphine Sulfate [Morphine Sulfate 30 mg PO Q12H 03/27/16 ER] cloNIDine [Catapres] 0.1 mg PO BID #0 tab 04/13/16 amLODIPine [Norvasc] 5 mg PO DAILY 07/23/16 Aspirin [Ecotrin] 81 mg PO DAILY tabec 07/25/16 ALPRAZolam [Xanax] 0.25 mg PO BID PRN 11/11/16 Cyanocobalamin [Vitamin B12 1000 1,000 mcg PO DAILY 11/11/16 mcg Tab] Isosorbide Mononitrate [Imdur] 60 mg PO DAILY 11/11/16 DAPTOmycin [Cubicin] 670 mg IV DAILY 42 Days vial 11/17/16 Insulin Detemir [Levemir] 90 units SC HS #0 vial 11/17/16 Insulin Lispro [Humalog (Insulin 36 unit SQ TID #1 cartridge 11/17/16 Lispro)] hydroCHLOROthiazide [Hydrodiuril] 25 mg PO DAILY@1300 tab 11/17/16 Cephalexin [cephalexin] 500 mg PO TID 12/21/16 Clindamycin [Cleocin] 300 mg PO TID 10 Days cap 04/15/17 - Allergies Allergies/Adverse Reactions: Allergies Allergy/AdvReac Type Severity Reaction Status Date / Time morphine AdvReac NAUSEA Verified 12/18/16 17:11 Review of Systems ROS Statement: Except As Marked, All Systems Reviewed And Found Negative Constitutional: Negative for: Fever, Chills, Other (trauma) Cardiovascular: Negative for: Chest Pain Respiratory: Negative for: Shortness of Breath Musculoskeletal: Positive for: Leg Pain (Chronic lower extremity swelling, redness and pain) Physical Exam - Reviewed Nursing Documentation Reviewed: Yes Vital Signs Reviewed: Yes - Physical Exam Appears: Positive for: Non-toxic, No Acute Distress Head Exam: Positive for: ATRAUMATIC, NORMAL INSPECTION, NORMOCEPHALIC Skin: Positive for: Normal Color, Warm, Dry Eye Exam: Positive for: EOMI, Normal appearance, PERRL Neck: Positive for: Normal, Painless ROM, Supple Cardiovascular/Chest: Positive for: Regular Rate, Rhythm. Negative for: Murmur Respiratory: Positive for: Normal Breath Sounds. Negative for: Respiratory Distress Gastrointestinal/Abdominal: Positive for: Normal Exam, Bowel Sounds, Soft. Negative for: Tenderness Back: Positive for: Normal Inspection. Negative for: L CVA Tenderness, R CVA Tenderness Extremity: Positive for: Other (Right leg warm to touch with mild erythema. Amputation well healed and clean, no discharge.) Neurologic/Psych: Positive for: Alert, Oriented. Negative for: Motor/Sensory Deficits - Laboratory Results Result Diagrams: 04/15/17 00:57 04/15/17 00:57 - ECG O2 Sat by Pulse Oximetry: 98 (RA) Pulse Ox Interpretation: Normal Medical Decision Making Medical Decision Making: Initial Impression: Chronic venous stasis vs cellulitis vs DVT Initial Plan: --Basic Metabolic Panel --Lact Acid, Plasma --CBC w/ differential --Percocet 5/325 mg tab --Duplex Lower Extremities Vein right [US] --reevaluation 0133 US FINDINGS: Deep veins: Normal. No DVT in the visualized common femoral, femoral, proximal deep femoral or popliteal veins. The veins demonstrate normal color flow, are normally compressible, with normal phasic flow and/or augmentation response. Superficial veins: Normal. No thrombus in the visualized great saphenous vein. Soft tissues: There is RIGHT leg subcutaneous edema and redness. Correlate for cellulitis.No popliteal cyst. There is a RIGHT groin 4.4 x 1.2 x 3.8 cm reactive lymph node. IMPRESSION: No acute RIGHT lower extremity DVT. There is RIGHT leg subcutaneous edema and redness. Correlate for cellulitis. 130: Pt. asking for diluadid. Will give one dose, no scripts for narcotics will be provided. Pt. has f/u w/ Dr. Macdonald tomorrow. Will give IV dose of clinda and d/c home w/ script with return precautions. Scribe Attestation: Documented by Matt Nielson, acting as a scribe for Sin Harper MD Provider Scribe Attestation: All medical record entries made by the Scribe were at my direction and personally dictated by me. I have reviewed the chart and agree that the record accurately reflects my personal performance of the history, physical exam, medical decision making, and the department course for this patient. I have also personally directed, reviewed, and agree with the discharge instructions and disposition. Disposition - Clinical Impression Clinical Impression: Cellulitis - Disposition Referrals: Sarath Doshi MD [Primary Care Provider] - James Macdonald DPM [Medical Doctor] - Disposition Time: 01:30 Condition: STABLE Prescriptions: Clindamycin [Cleocin] 300 mg PO TID 10 Days cap Instructions: Cellulitis (ED) Forms: [employer] (Maltese)
[2017-04-15 01:12] LABS: BASO # 0.1 K/uL (0.0-0.2); BASO % 0.8 % (0.0-2.0); EOS # 0.1 K/uL (0.0-0.7); EOS % 1.2 % (0.0-4.0); HEMATOCRIT 35.3 % (34.0-47.0); LYMPH # 1.5 K/uL (1.0-4.3); LYMPH % 16.7 % (20.0-40.0); MEAN CELL VOLUME 79.5 fl (81.0-99.0); MEAN CORPUSCULAR HEMOGLOBIN 25.6 pg (27.0-31.0); MEAN CORPUSCULAR HGB CONC 32.2 g/dL (33.0-37.0); MEAN PLATELET VOLUME 7.7 fl (7.2-11.7); MONO # 0.6 K/uL (0.0-0.8); MONO % 6.6 % (0.0-10.0); NEUT # 6.8 K/uL (1.8-7.0); NEUT % 74.7 % (50.0-75.0); RED CELL DISTRIBUTION WIDTH 17.4 % (11.5-14.5); WHITE BLOOD COUNT 9.1 K/uL (4.8-10.8)
[2017-04-15 01:23] LABS: BLOOD UREA NITROGEN 21 mg/dl (7-17); CALCIUM 9.6 mg/dL (8.4-10.2); CARBON DIOXIDE 25 mmol/L (22-30); CHLORIDE 98 mmol/L (98-107); GFR AFRICAN-AMERICAN > 60; GLUCOSE,RANDOM 191 mg/dL (65-105); SODIUM 138 mmol/l (132-148)
[2017-04-15 01:24] LABS: POTASSIUM 5.7 MMOL/L (3.6-5.0)
[2017-04-15] MEDS ORDERED: HYDROmorphone 0.5 mg/0.5 ml ISec IVP STA (01:39)
[2017-04-15] MEDS ORDERED: Clindamycin 300 MG in Sodium Chloride 0.9% 50 ML IVPB STA (01:40)
[2017-04-15] MEDS ORDERED: Clindamycin 600 MG in Sodium Chloride 0.9% 100 ML IVPB STA (01:45)
[2017-04-15 02:45] VITALS: BP 143/86; PULSE 86; RESP 18; TEMP 98.6
--- NOTE | 2017-04-15 08:14 | US ---
PROCEDURE: Right lower extremity venous duplex Doppler. HISTORY: r/o DVT COMPARISON: None available. TECHNIQUE: Common femoral, superficial femoral, popliteal and posterior tibial veins were evaluated. Flow was assessed with color Doppler, compressibility, assessment of phasic flow and augmentation response. FINDINGS: COMMON FEMORAL VEIN: Unremarkable. SUPERFICIAL FEMORAL VEIN: Unremarkable. POPLITEAL VEIN: Unremarkable. POSTERIOR TIBIAL VEIN: Unremarkable. OTHER FINDINGS: Enlarged lymph node right inguinal region adjacent to the proximal superficial femoral vein 1.3 x 4.4 x 3.9 cm. Morphologically, unremarkable. Moderate right calf edema identified without compression or impedance of flow within the right posterior tibial vein. IMPRESSION: No evidence of deep venous thrombosis in the right lower extremity.
== END 2017-04-15 02:46 | disposition home or self-care (01) ==
LOC: H.ER 00:14
DX: L03.116 Cellulitis of left lower limb (principal); E78.00 Pure hypercholesterolemia, unspecified; F41.9 Anxiety disorder, unspecified; I10 Essential (primary) hypertension; I25.10 Atherosclerotic heart disease of native coronary artery without angina pectoris; Z79.4 Long term (current) use of insulin; Z79.82 Long term (current) use of aspirin; Z86.73 Personal history of transient ischemic attack (TIA), and cerebral infarction without residual deficits; Z95.5 Presence of coronary angioplasty implant and graft
CPT/HCPCS: 80048; 82948; 83605; 85025; 93971; 96365; 96375; 99284; J1170

== ENCOUNTER 2017-05-31 18:06 | Inpatient (IN) | payer OTHER ==
[2017-05-31 18:06] VITALS: BMI 37.4
[2017-05-31] MEDS ORDERED: Albuterol-Ipratrop 3 mg / 0.5 (3 ml) UD INH STA (19:04)
--- NOTE | 2017-05-31 19:12 | ED PDOC ---
HPI: General Adult Time Seen by Provider: 05/31/17 18:39 Chief Complaint (Nursing): Shortness Of Breath History Per: Patient, Family Additional Complaint(s): Pt. states earlier today she had a sudden onset of SOB and feeling very weak. Pt. describes similar symptoms as to when she had to get a blood transfusions. Denies chest pain, hemoptysis, hx of DVT or PE, fever. Past Medical History Reviewed: Historical Data, Nursing Documentation, Vital Signs Vital Signs: Last Vital Signs Temp 99.4 F 05/31/17 18:19 Pulse 95 H 05/31/17 18:54 Resp 18 05/31/17 18:54 BP 195/98 H 05/31/17 18:54 Pulse Ox 92 L 05/31/17 20:06 - Medical History PMH: Anemia, Anxiety, Arthritis, Back Problems (herniated disks), CAD, CVA, Diabetes (type I), HTN, Hypercholesterolemia, Hyperlipidemia Denies: CHF, COPD, HIV, Hypothyroidism, Chronic Kidney Disease, Rheumatoid Arthritis - Surgical History Surgical History: Appendectomy, Coronary Stent - Family History Family History: States: Unknown Family Hx - Immunization History Hx Tetanus Toxoid Vaccination: No Hx Influenza Vaccination: No Hx Pneumococcal Vaccination: No - Home Medications Home Medications: Ambulatory Orders Medication Instructions Recorded Ferrous Sulfate [Feosol] 325 mg PO TID 02/23/14 Clopidogrel [Plavix] 75 mg PO DAILY 06/19/14 Atorvastatin Calcium [Lipitor] 40 mg PO HS 10/22/14 Enalapril Maleate 20 mg PO BID 10/22/14 Metoprolol Succinate [Toprol XL] 200 mg PO Q12H 05/28/15 oxyCODONE [oxyCODONE Immediate 30 mg PO Q6H PRN 05/28/15 Release Tab] Morphine Sulfate [Morphine Sulfate 30 mg PO Q12H 03/27/16 ER] cloNIDine [Catapres] 0.1 mg PO BID #0 tab 04/13/16 amLODIPine [Norvasc] 5 mg PO DAILY 07/23/16 Aspirin [Ecotrin] 81 mg PO DAILY tabec 07/25/16 ALPRAZolam [Xanax] 0.25 mg PO BID PRN 11/11/16 Cyanocobalamin [Vitamin B12 1000 1,000 mcg PO DAILY 11/11/16 mcg Tab] Isosorbide Mononitrate [Imdur] 60 mg PO DAILY 11/11/16 DAPTOmycin [Cubicin] 670 mg IV DAILY 42 Days vial 11/17/16 Insulin Detemir [Levemir] 90 units SC HS #0 vial 11/17/16 Insulin Lispro [Humalog (Insulin 36 unit SQ TID #1 cartridge 11/17/16 Lispro)] hydroCHLOROthiazide [Hydrodiuril] 25 mg PO DAILY@1300 tab 11/17/16 Cephalexin [cephalexin] 500 mg PO TID 12/21/16 Clindamycin [Cleocin] 300 mg PO TID 10 Days cap 04/15/17 - Allergies Allergies/Adverse Reactions: Allergies Allergy/AdvReac Type Severity Reaction Status Date / Time morphine AdvReac NAUSEA Verified 12/18/16 17:11 Review of Systems ROS Statement: Except As Marked, All Systems Reviewed And Found Negative Neurological: Positive for: Weakness Physical Exam - Reviewed Nursing Documentation Reviewed: Yes Vital Signs Reviewed: Yes - Physical Exam Appears: Positive for: Well, Non-toxic, No Acute Distress Head Exam: Positive for: ATRAUMATIC, NORMAL INSPECTION, NORMOCEPHALIC Skin: Positive for: Normal Color, Warm. Negative for: Rash Eye Exam: Positive for: EOMI, Normal appearance, PERRL ENT: Positive for: Normal ENT Inspection Neck: Positive for: Normal, Painless ROM Cardiovascular/Chest: Positive for: Regular Rate, Rhythm Respiratory: Positive for: Decreased Breath Sounds (b/l). Negative for: Respiratory Distress Gastrointestinal/Abdominal: Positive for: Normal Exam, Bowel Sounds, Soft. Negative for: Tenderness Back: Positive for: Normal Inspection Extremity: Positive for: Normal ROM. Negative for: Pedal Edema, Calf Tenderness , Other (chronic leg swelling b/l) Neurologic/Psych: Positive for: Alert, Oriented - Laboratory Results Result Diagrams: 05/31/17 19:22 05/31/17 19:22 - ECG ECG: Positive for: Interpreted By Me ECG Rhythm: Positive for: Sinus Tachycardia. Negative for: ST/T Changes Rate: 100 O2 Sat by Pulse Oximetry: 92 - Radiology X-Ray: Interpreted by Me (CXR) X-Ray Interpretation: Other (CHF) - Progress ED Course And Treament: Labs ordered. DuoNeb x 3, solu-medrol 60mg IV ordered. Peak flow 170. Disposition - Clinical Impression Clinical Impression: Bronchospasm, acute, Dyspnea - Patient ED Disposition Is Patient to be Admitted: Transfer of Care (signed out to Soledad AYALA pending CTA results and disposition) - Disposition Disposition Time: 20:00 Condition: STABLE Forms: [employer] ([place])
[2017-05-31] MEDS ORDERED: MethylPREDNISolone 40 mg Vial ONE (19:15)
[2017-05-31] MEDS ORDERED: Albuterol-Ipratrop 3 mg / 0.5 (3 ml) UD ONE (19:15)
[2017-05-31 19:27] LABS: BASO # 0.1 K/uL (0.0-0.2); BASO % 0.8 % (0.0-2.0); EOS # 0.1 K/uL (0.0-0.7); EOS % 1.1 % (0.0-4.0); HEMATOCRIT 34.2 % (34.0-47.0); LYMPH % 11.9 % (20.0-40.0); MEAN CELL VOLUME 80.1 fl (81.0-99.0); MEAN CORPUSCULAR HGB CONC 32.5 g/dL (33.0-37.0); MEAN PLATELET VOLUME 7.4 fl (7.2-11.7); MONO # 0.5 K/uL (0.0-0.8); MONO % 5.4 % (0.0-10.0); NEUT # 6.8 K/uL (1.8-7.0); NEUT % 80.8 % (50.0-75.0); RED CELL DISTRIBUTION WIDTH 17.5 % (11.5-14.5); WHITE BLOOD COUNT 8.4 K/uL (4.8-10.8)
[2017-05-31 19:41] LABS: ALB/GLOB RATIO 1.1 (1.0-2.1); ALKALINE PHOSPHATASE 103 U/L (38-126); ALT/SGPT 29 U/L (9-52); AST/SGOT 23 U/L (14-36); BILIRUBIN,TOTAL 0.5 mg/dl (0.2-1.3); BLOOD UREA NITROGEN 19 mg/dl (7-17); CALCIUM 9.4 mg/dL (8.4-10.2); CARBON DIOXIDE 25 mmol/L (22-30); CHLORIDE 100 mmol/L (98-107); GFR AFRICAN-AMERICAN > 60; GLUCOSE,RANDOM 130 mg/dL (65-105); POTASSIUM 4.2 MMOL/L (3.6-5.0); SODIUM 137 mmol/l (132-148); TOTAL PROTEIN 7.8 G/DL (6.3-8.2)
[2017-05-31] MEDS ORDERED: Nitroglycerin 2% 15 INCH/30 GM TUBE TOP STA (20:09)
[2017-05-31] MEDS ORDERED: Sodium Chloride 0.9% 50 ML IV ONE (20:11)
[2017-05-31] MEDS ORDERED: Iodixanol 320 MG/ML 100 ML BOTTLE IV ONE (20:11)
[2017-05-31] MEDS ORDERED: Nitroglycerin 2% Ointment Foilpak UD TOP ONE (20:14)
[2017-05-31] MEDS ORDERED: Metoprolol Succinate 100 mg XL Tab PO STA (21:53)
[2017-05-31] MEDS ORDERED: HYDROmorphone 1 mg/ml ISec IVP STA (21:54)
--- NOTE | 2017-05-31 22:17 | ED PDOC ---
- Laboratory Results Result Diagrams: 05/31/17 19:22 05/31/17 19:22 - ECG O2 Sat by Pulse Oximetry: 92 - Progress ED Course And Treament: Case endorsed to public relations writer from Ruthann AYALA pending labs, imaging EXAM: CT Angiography Chest With Intravenous Contrast EXAM DATE/TIME: 05/31/2017 CLINICAL HISTORY: Signs and symptoms; Shortness of breath; Prior surgery; Surgery date: 6+ months ; Surgery type: Coronary stent; Additional info: Elevated d-dimer, SOB TECHNIQUE: Axial computed tomographic angiography images of the chest with intravenous contrast using pulmonary embolism protocol. All CT scans at this facility use one or more dose reduction techniques, viz.: automated exposure control; ma/kV adjustment per patient size (including targeted exams where dose is matched to indication; i.e. head); or iterative reconstruction technique. MIP reconstructed images were created and reviewed. Coronal and sagittal reformatted images were created and reviewed. CONTRAST: 95 mL of [id number] administered intravenously. COMPARISON: No prior CT Chest for comparison. FINDINGS: Pulmonary arteries: No acute embolus in the main, lobar, segmental or subsegmental pulmonary arteries. Aorta: No dissection or other acute abnormality of the imaged aorta. No thoracic aortic aneurysm. Lungs: Interlobular septal thickening and mild ground glass opacity throughout both lungs. No focal pulmonary airspace consolidation. The central airways are patent. Pleural space: No pleural fluid collection. No pneumothorax. Heart: No cardiomegaly. No pericardial fluid collection. Bones/joints: No acute findings. Soft tissues: No acute findings. Lymph nodes: Mildly enlarged mediastinal and hilar lymph nodes. Adrenals: Bilateral adrenal thickening, incompletely imaged. IMPRESSION: 1. No acute pulmonary embolus. 2. Interlobular septal thickening and mild ground glass opacity throughout both lungs. Differential diagnosis includes but is not limited to pulmonary edema, an atypical or viral pneumonia, and hypersensitivity pneumonitis. 3. Mildly enlarged mediastinal and bilateral hilar lymph nodes. 4. Bilateral adrenal thickening, incompletely imaged. Lasix IV, Nitro pasta ordered for acute CHF Dr. Bello spoke with Dr. Nevarez, medical service on-call, regarding placement in observation Disposition - Clinical Impression Clinical Impression: Acute CHF (congestive heart failure) - POA Present On Arrival: None - Disposition Disposition: Hospitalized as Observation Patient Disposition Time: 21:15 Condition: FAIR
[2017-06-01] MEDS: oxyCODONE 10 mg ER Tab (oxyCONTIN) PO PRN ×2 (03:03→09:43)
[2017-06-01] MEDS ORDERED: Nitroglycerin 2% Ointment Foilpak UD TOP ONE ×2 (04:08→10:41)
[2017-06-01] MEDS: Nitroglycerin 2% Ointment Foilpak UD TOP SCH ×4 (04:11→22:22)
[2017-06-01] MEDS ORDERED: Insulin Regular 100 units/ml SC STA (08:28)
--- NOTE | 2017-06-01 08:49 | CT ---
PROCEDURE: CT Chest with contrast (Pulmonary Angiogram) HISTORY: elevated d-dimer, SOB COMPARISON: None available. TECHNIQUE: Axial computed tomography images were obtained of the chest in the pulmonary arterial phase of enhancement. Coronal and sagittal reformatted images were created and reviewed. Intravenous contrast dose: 95 mL Visipaque 320 Radiation dose: Total exam DLP = 402.67 mGy-cm. This CT exam was performed using one or more of the following dose reduction techniques: Automated exposure control, adjustment of the mA and/or kV according to patient size, and/or use of iterative reconstruction technique. FINDINGS: PULMONARY ARTERIES: There are no filling defects in the pulmonary arteries to suggest acute pulmonary embolism. AORTA: No aortic dissection. No thoracic aortic aneurysm. LUNGS: There is diffuse interlobular septal thickening and patchy ground-glass attenuation in both lungs. PLEURAL SPACES: No effusion or pneumothorax. HEART: There is mild cardiomegaly. No significant pericardial effusion. LYMPH NODES: There are prominent mediastinal lymph nodes and mild hilar lymphadenopathy. BONES, CHEST WALL: Multilevel degenerative disc disease. No fracture or destructive lesion OTHER FINDINGS: Both adrenal glands are thickened without discrete nodule. IMPRESSION: No CT evidence for acute pulmonary embolism. Diffuse interlobular septal thickening and patchy ground-glass attenuation in the lungs in the setting of cardiomegaly could be related to interstitial and alveolar pulmonary edema however atypical/ interstitial pneumonitis is also a consideration. A preliminary report was provided by [facility].
[2017-06-01] MEDS ORDERED: oxyCODONE 10 mg ER Tab (oxyCONTIN) PO ONE (09:42)
--- NOTE | 2017-06-01 10:53 | RAD ---
HISTORY: Shortness of breath COMPARISON: 11/11/2016 FINDINGS: LUNGS: The lungs are well inflated. There is severe pulmonary venous congestion and mild interstitial pulmonary edema. PLEURA: No significant pleural effusion identified, no pneumothorax apparent. CARDIOVASCULAR: There is persistent moderate cardiomegaly. OSSEOUS STRUCTURES: No significant abnormalities. VISUALIZED UPPER ABDOMEN: Normal. OTHER FINDINGS: None. IMPRESSION: Moderate cardiomegaly and severe pulmonary venous congestion with mild interstitial pulmonary edema. No lobar pneumonia.
[2017-06-01] MEDS ORDERED: Metoprolol Succinate 100 mg XL Tab PO SCH (11:45)
[2017-06-01] MEDS ORDERED: Morphine 30 mg SR Tab PO SCH (11:45)
[2017-06-01] MEDS ORDERED: INSULIN LISPRO 30 UNIT SQ SCH (13:00)
[2017-06-01] MEDS: Insulin Lispro (humaLOG) 100 Units/ml Inj SC SCH ×4 (13:22→22:22)
--- NOTE | 2017-06-01 14:52 | CP.PCM.CON ---
History of Present Illness - History of Present Illness History of Present Illness: 51 year old female sent to the ED for shortness of breath on 05/[address] Macodnald. PT STATES THIS HAS BEEN OCURRING FOR 1 DAY. NOT SEVERE, NO ORTHOPNEA , PND OR CP. SHE HAS GISELL WHICH IS CHRONIC AND STABLE. SHE DENIES COUGH, F/C/N/ V/D/C. EKG IS NML. HAS HX OF PVD AND CAD WITH INTERVENTIONS MANY YEARS AGO. DENIES PALP, LH, DIZZINESS. Review of Systems - Constitutional Constitutional: As Per HPI. absent: Anorexia, Chills, Daytime Sleepiness, Excessive Sweating, Fatigue, Fever, Frequent Falls, Headache, Increased Appetite , Lethargy, Malaise, Night Sweats, Snoring, Sleep Apnea, Weight Gain, Weight Loss, Weakness, Other - EENT Eyes: As Per HPI. absent: Blind Spots, Blurred Vision, Change in Vision, Decreased Night Vision, Diplopia, Discharge, Dry Eye, Exophthalmos, Floaters, Irritation, Itchy Eyes, Loss of Peripheral Vision, Pain, Photophobia, Requires Corrective Lenses, Sees Flashes, Spots in Vision, Tunnel Vision, Other Visual Disturbances, Loss of Vision, Other Ears: As Per HPI. absent: Decreased Hearing, Ear Discharge, Ear Pain, Tinnitus , Abnormal Hearing, Disequilibrium, Dizziness, Other Nose/Mouth/Throat: As Per HPI. absent: Epistaxis, Nasal Congestion, Nasal Discharge, Nasal Obstruction, Nasal Trauma, Nose Pain, Post Nasal Drip, Sinus Pain, Sinus Pressure, Bleeding Gums, Change in Voice, Dental Pain, Dry Mouth, Dysphagia, Halitosis, Hoarsness, Lip Swelling, Mouth Lesions, Mouth Pain, Odynophagia, Sore Throat, Throat Swelling, Tongue Swelling, Facial Pain, Neck Pain, Neck Mass, Other - Breasts Breasts: As Per HPI. absent: Change in Shape, Mass, Pain, Nipple Discharge, Nipple Inversion, Skin Changes, Swelling, Other - Cardiovascular Cardiovascular: As Per HPI, Dyspnea. absent: Acrocyanosis, Chest Pain, Chest Pain at Rest, Chest Pain with Activity, Claudication, Diaphoresis, Dyspnea on Exertion, Edema, Irregular Heart Rhythm, Pain Radiating to Arm/Neck/Jaw, Leg Edema, Leg Ulcers, Lightheadedness, Orthopnea, Palpitations, Paroxysmal Nocturnal Dyspnea, Pedal Edema, Radiating Pain, Rapid Heart Rate, Slow Heart Rate, Syncope, Other - Respiratory Respiratory: As Per HPI. absent: Cough, Dyspnea, Hemoptysis, Dyspnea on Exertion, Wheezing, Snoring, Stridor, Pain on Inspiration, Chest Congestion, Excessive Mucous Production, Change in Mucous Color, Pain with Coughing, Other - Gastrointestinal Gastrointestinal: As Per HPI. absent: Abdominal Pain, Belching, Bloating, Change in Bowel Habits, Change in Stool Character, Coffee Ground Emesis, Constipation, Cramping, Diarrhea, Dyspepsia, Dysphagia, Early Satiety, Excessive Flatus, Fecal Incontinence, Heartburn, Hematemesis, Hematochezia, Loose Stools, Melena, Nausea, Odynophagia, Temesmus, Vomiting, Other - Genitourinary Genitourinary: As Per HPI. absent: Change in Urinary Stream, Difficulty Urinating, Dysuria, Flank Pain, Hematuria, Pyuria, Nocturia, Urinary Incontinence, Urinary Frequency, Urinary Hesitance, Urinary Urgency, Voiding Freq/Small Amts, Freq UTI, Hx Renal/Bladder Calculi, Hx /Renal Surgery, Bladder Distension, Other - Reproductive: Female Reproductive:Female: As Per HPI. absent: Amenorrhea, Amenorrhea/ Control, Currently Menstual, Cycle <21 Days, Cycle >35 Days, Cycle Variable, Menses 1-7 Days, Menses >/= 8 Days, Menses Variable, Cycle > 4 Weeks Between, No Menses for 6 Months, Heavy Menses, Light Menses, Normal Menses, Spotting Between Cycles , S/P Hysterectomy, Menopausal, Post Menopausal, Premenarche, Abnormal Vaginal Bleeding, Dysmenorrhea, Dyspareunia, Genital Lesions, Genital Pruritis, Pelvic Pain, Prolapse Symptoms, Sexual Dysfunction, Vaginal Discharge, Vaginal Dryness , Vaginal Odor, Vaginal Pruritis, Other - Musculoskeletal Musculoskeletal: As Per HPI. absent: Abnormal Gait, Arthralgias, Atrophy, Back Pain, Deformity, Joint Swelling, Limited Range of Motion, Loss of Height, Muscle Cramps, Muscle Weakness, Myalgias, Neck Pain, Numbness, Radiating Pain into Limb, Stiffness, Tingling, Other - Integumentary Integumentary: As Per HPI. absent: Acne, Alopecia, Bleeding Lesions, Change in Hair, Change in Nails, Change in Pigmentation, Changing Lesions, Dry Skin, Erythema, Furuncle, Hirsutism, Lesions, New Lesions, Non-Healing Lesions, Photosensitivity, Pruritus, Rash, Skin Pain, Skin Ulcer, Sores, Striae, Swelling , Unusual Bruising, Wounds, Jaundice, Other - Neurological Neurological: absent: As Per HPI, Abnormal Gait, Abnormal Hearing, Abnormal Movements, Abnormal Speech, Behavioral Changes, Burning Sensations, Confusion, Convulsions, Disequilibrium, Dizziness, Numbness, Focal Weakness, Frequent Falls , Headaches, Lack of Coordination, Loss of Vision, Memory Loss, Paresthesias, Radicular Pain, Restless Legs, Sensory Deficit, Syncope, Tingling, Tremor, Vertigo, Weakness, Other Visual Disturbances, Other - Psychiatric Psychiatric: As Per HPI. absent: Abnormal Sleep Pattern, Anhedonia, Anxiety, Auditory Hallucinations, Behavioral Changes, Change in Appetite, Change in Libido, Confusion, Depression, Difficulty Concentrating, Hallucinations, Homicidal Ideation, Hopelessness, Irritability, Memory Loss, Mood Swings, Panic Attacks, Paranoia, Suicidal Ideation, Visual Hallucinations, Tactile Hallucinations, Other - Endocrine Endocrine: As Per HPI. absent: Change in Body Appearance, Change in Libido, Cold Intolorance, Deepening of Voice, Excessive Sweating, Fatigue, Flushing, Heat Intolorance, Increase in Ring/Shoe/Hat Size, Palpitations, Polydipsia, Polyphagia, Polyuria, Other - Hematologic/Lymphatic Hematologic: As Per HPI. absent: Easy Bleeding, Easy Bruising, Lymphadenopathy , Other Past Patient History - Infectious Disease Hx of Infectious Diseases: None - Tetanus Immunizations Tetanus Immunization: Unknown - Past Medical History & Family History Past Medical History?: Yes - Past Social History Smoking Status: Former Smoker Alcohol: Occasional Drugs: Denies Home Situation {Lives}: With Family Domestic Violence: Negative - CARDIAC Hx Congestive Heart Failure: No Hx Hypercholesterolemia: Yes Hx Hypertension: Yes - PULMONARY Hx Chronic Obstructive Pulmonary Disease (COPD): No - NEUROLOGICAL Hx Neurological Disorder: No HX Cerebrovascular Accident: Yes (2009) - HEENT Hx HEENT Problems: No - RENAL Hx Chronic Kidney Disease: No - ENDOCRINE/METABOLIC Hx Hypothyroidism: No - HEMATOLOGICAL/ONCOLOGICAL Hx Anemia: Yes Hx Human Immunodeficiency Virus (HIV): No - INTEGUMENTARY Hx Dermatological Problems: No - MUSCULOSKELETAL/RHEUMATOLOGICAL Hx Arthritis: Yes Hx Rheumatoid Arthritis: No - GASTROINTESTINAL Hx Gastrointestinal Disorders: No - GENITOURINARY/GYNECOLOGICAL Hx Genitourinary Disorders: No - PSYCHIATRIC Hx Anxiety: Yes - SURGICAL HISTORY Hx Appendectomy: Yes Hx Coronary Stent: Yes - ANESTHESIA Hx Anesthesia: Yes Hx Anesthesia Reactions: Yes (CAN'T BREATH-ADMITTED TO ICU) Hx Malignant Hyperthermia: No Meds Allergies/Adverse Reactions: Allergies Allergy/AdvReac Type Severity Reaction Status Date / Time morphine AdvReac NAUSEA Verified 12/18/16 17:11 - Medications Medications: Current Medications Albuterol/Ipratropium (Duoneb 3 Mg/0.5 Mg (3 Ml) Ud) 3 ml INH RQ6 [facility] Alprazolam (Xanax) 0.25 mg PO BID PRN PRN Reason: Anxiety Stop: 06/08/17 11:37 Amlodipine Besylate (Norvasc) 5 mg PO DAILY [facility] Last Admin: 06/01/17 13:01 Dose: 5 mg Aspirin (Ecotrin) 81 mg PO DAILY [facility] Last Admin: 06/01/17 13:01 Dose: 81 mg Atorvastatin Calcium (Lipitor) 40 mg PO HS [facility] Clonidine HCl (Catapres) 0.1 mg PO BID [facility] Clopidogrel Bisulfate (Plavix) 75 mg PO DAILY [facility] Last Admin: 06/01/17 13:01 Dose: 75 mg Cyanocobalamin (Vitamin B12 1000 Mcg Tab) 1,000 mcg PO DAILY [facility] Last Admin: 06/01/17 13:01 Dose: 1,000 mcg Enalapril Maleate (Vasotec) 20 mg PO BID [facility] Ferrous Sulfate (Feosol) 325 mg PO DAILY [facility] Last Admin: 06/01/17 13:01 Dose: 325 mg Furosemide (Lasix) 40 mg IV Q12 [facility] Last Admin: 06/01/17 09:43 Dose: 40 mg Hydrochlorothiazide (Hydrodiuril) 25 mg PO DAILY@1300 [facility] Insulin Detemir (Levemir) 80 units SC HS [facility] Insulin Human Lispro (Humalog) 30 units SC TIDAC [facility] Last Admin: 06/01/17 13:22 Dose: 30 units Insulin Human Regular (Humulin R) 0 units SC ACHS [facility] PRN Reason: Protocol Last Admin: 06/01/17 13:05 Dose: 8 units Isosorbide Mononitrate (Imdur) 60 mg PO DAILY [facility] Last Admin: 06/01/17 13:01 Dose: 60 mg Metoprolol Succinate (Toprol Xl) 200 mg PO Q12H [facility] Morphine Sulfate (Morphine Extended Release Tab) 30 mg PO Q12H [facility] Nitroglycerin (Nitro-Bid 2% Oint) 1 ea TOP Q6 [facility] Last Admin: 06/01/17 11:00 Dose: 1 ea Oxycodone HCl (Oxycodone Immediate Release Tab) 30 mg PO Q6H PRN PRN Reason: Pain, severe (8-10) Physical Exam - Constitutional Appears: Non-toxic - Head Exam Head Exam: ATRAUMATIC, NORMAL INSPECTION, NORMOCEPHALIC - Eye Exam Eye Exam: EOMI, Normal appearance, PERRL. absent: Conjunctival injection, Nystagmus, Periorbital swelling, Periorbital tenderness, Scleral icterus Pupil Exam: NORMAL ACCOMODATION, PERRL. absent: Fixed, Irregular, Miosis, Mydriatic, Unequal - ENT Exam ENT Exam: Mucous Membranes Moist, Normal Exam. absent: Mucous Membranes Dry, Normal External Ear Exam, Normal Oropharynx, TM's Normal Bilaterally - Neck Exam Neck exam: Positive for: Normal Inspection. Negative for: Full Rom, Lymphadenopathy, Meningismus, Tenderness, Thyromegaly - Respiratory Exam Respiratory Exam: Clear to Auscultation Bilateral, NORMAL BREATHING PATTERN. absent: Accessory Muscle Use, Chest Wall Tenderness, Decreased Breath Sounds, Prolonged Expiratory Phase, Rales, Rhonchi, Wheezes, Respiratory Distress, Stridor - Cardiovascular Exam Cardiovascular Exam: REGULAR RHYTHM, +S1, +S2, Systolic Murmur. absent: Bradycardia, Tachycardia, Clicks, Diastolic murmur, Gallop, Irregular Rhythm, JVD, RRR, Rubs, +S4 - GI/Abdominal Exam GI & Abdominal Exam: Normal Bowel Sounds, Soft. absent: Bruit, Diminished Bowel Sounds, Distended, Firm, Guarding, Hernia, Hyperactive Bowel Sounds, Hypoactive Bowel Sounds, Mass, Organomegaly, Pulsatile Mass, Rebound, Rigid, Tenderness - Rectal Exam Rectal Exam: Deferred - Extremities Exam Extremities exam: Positive for: normal inspection, pedal edema. Negative for: calf tenderness, full ROM, joint swelling, normal capillary refill, tenderness, pedal pulses present - Back Exam Back exam: NORMAL INSPECTION - Neurological Exam Neurological exam: Alert, CN II-XII Intact, Normal Gait, Oriented x3, Reflexes Normal - Psychiatric Exam Psychiatric exam: Normal Affect, Normal Mood - Skin Skin Exam: Dry, Intact, Normal Color, Warm Results - Vital Signs Recent Vital Signs: Last Vital Signs Temp 98.9 F 06/01/17 08:34 Pulse 92 H 06/01/17 08:34 Resp 17 06/01/17 08:34 BP 176/81 H 06/01/17 09:43 Pulse Ox 94 L 06/01/17 08:34 - Labs Result Diagrams: 05/31/17 19:22 05/31/17 19:22 Labs: Laboratory Results - last 24 hr 05/31/17 05/31/17 05/31/17 19:22 19:22 19:22 WBC 8.4 RBC 4.27 Hgb 11.1 L Hct 34.2 MCV 80.1 L MCH 26.0 L MCHC 32.5 L RDW 17.5 H Plt Count 279 MPV 7.4 Neut % (Auto) 80.8 H Lymph % (Auto) 11.9 L [place] % (Auto) 5.4 Eos % (Auto) 1.1 Baso % (Auto) 0.8 Neut # 6.8 Lymph # 1.0 [place] # 0.5 Eos # 0.1 Baso # 0.1 D-Dimer, Quantitative 390 H Sodium 137 Potassium 4.2 Chloride 100 Carbon Dioxide 25 Anion Gap 15 BUN 19 H Creatinine 0.8 Est GFR ( Amer) > 60 Est GFR (Non-Af Amer) > 60 POC Glucose (mg/dL) Random Glucose 130 H Calcium 9.4 Total Bilirubin 0.5 AST 23 ALT 29 Alkaline Phosphatase 103 Troponin I < 0.0120 NT-Pro-B Natriuret Pep Total Protein 7.8 Albumin 4.0 Globulin 3.8 Albumin/Globulin Ratio 1.1 05/31/17 06/01/17 06/01/17 20:06 02:38 08:26 WBC RBC Hgb Hct MCV MCH MCHC RDW Plt Count MPV Neut % (Auto) Lymph % (Auto) [place] % (Auto) Eos % (Auto) Baso % (Auto) Neut # Lymph # [place] # Eos # Baso # D-Dimer, Quantitative Sodium Potassium Chloride Carbon Dioxide Anion Gap BUN Creatinine Est GFR ( Amer) Est GFR (Non-Af Amer) POC Glucose (mg/dL) 446 H* Random Glucose Calcium Total Bilirubin AST ALT Alkaline Phosphatase Troponin I 0.0190 NT-Pro-B Natriuret Pep 1290 H Total Protein Albumin Globulin Albumin/Globulin Ratio 06/01/17 09:39 WBC RBC Hgb Hct MCV MCH MCHC RDW Plt Count MPV Neut % (Auto) Lymph % (Auto) [place] % (Auto) Eos % (Auto) Baso % (Auto) Neut # Lymph # [place] # Eos # Baso # D-Dimer, Quantitative Sodium Potassium Chloride Carbon Dioxide Anion Gap BUN Creatinine Est GFR ( Amer) Est GFR (Non-Af Amer) POC Glucose (mg/dL) 466 H* Random Glucose Calcium Total Bilirubin AST ALT Alkaline Phosphatase Troponin I NT-Pro-B Natriuret Pep Total Protein Albumin Globulin Albumin/Globulin Ratio - EKG Data EKG Interpreted by: Myself EKG shows normal: Sinus rhythm Rate: Normal Assessment & Plan (1) Dyspnea Status: Acute (2) CAD (coronary artery disease) Status: Chronic Priority: Medium (3) Diabetes Status: Chronic Priority: High (4) Dyslipidemia Status: Chronic Priority: High (5) Essential hypertension Status: Chronic (6) Peripheral vascular disease Status: Chronic Priority: Medium - Assessment and Plan (Free Text) Plan: PT WILL BE ADMITTED FOR SOB WHICH DOES NOT APPEAR TO BE CW CHF CHECK ECHO CO RULED OUT MONITOR LYTES WILL NEED ST ONCE ECHO RESULTED 45 MIN TOTAL CARE TIME
[2017-06-01] MEDS ORDERED: Albuterol-Ipratrop 3 mg / 0.5 (3 ml) UD ONE (16:02)
[2017-06-01] MEDS: Albuterol-Ipratrop 3 mg / 0.5 (3 ml) UD INH SCH (16:04)
[2017-06-01] MEDS ORDERED: Insulin Regular 100 units/ml SC SCH (16:30)
[2017-06-01] MEDS: Morphine 30 mg SR Tab PO SCH ×2 (18:19→18:38)
[2017-06-01] MEDS: oxyCODONE 10 mg Immediate Release Tab PO PRN (18:39)
--- NOTE | 2017-06-01 21:03 | CP.PCM.CON ---
History of Present Illness - History of Present Illness History of Present Illness: Podiatry Progress Note - Dr. Macdonald 51 year old female patient PMHx DM, HTN, hypercholesterolemia seen at bedside for right foot ulceration. Patient states she experienced SOB the evening after her appointment with Dr. Macdonald which warranted presentation to [facility] ED. Patient denies any SOB or chest pain currently. Patient states she has been seeing Dr. Macdonald weekly for her right foot ulcer. Patient denies any complaints to her right foot today. Patient denies N/V/F/D/C. PMHx: Acute CHF, DM, HTN, hypercholesterolemia, CAD, PVD, anxiety PSH: Appendectomy, right foot TMA w/Achilles lengthening, right leg stents, coronary stent placement x2 FH: unknown SH: denies ETOH, former tobacco use (1PPD for 15 years - stopped 3 years ago), no illicit drug use Meds: see med list All: morphine Review of Systems - Review of Systems All systems: reviewed and no additional remarkable complaints except (as per HPI ) Past Patient History - Infectious Disease Hx of Infectious Diseases: None - Tetanus Immunizations Tetanus Immunization: Unknown - Past Medical History & Family History Past Medical History?: Yes - Past Social History Smoking Status: Former Smoker - CARDIAC Hx Congestive Heart Failure: No Hx Hypercholesterolemia: Yes Hx Hypertension: Yes Hx Peripheral Edema: Yes - PULMONARY Hx Chronic Obstructive Pulmonary Disease (COPD): No - NEUROLOGICAL Hx Neurological Disorder: No - HEENT Hx HEENT Problems: No - RENAL Hx Chronic Kidney Disease: No - ENDOCRINE/METABOLIC Hx Diabetes Mellitus Type 1: Yes Hx Hypothyroidism: No - HEMATOLOGICAL/ONCOLOGICAL Hx Anemia: Yes Hx Blood Transfusions: Yes Hx Human Immunodeficiency Virus (HIV): No - INTEGUMENTARY Hx Dermatological Problems: No - MUSCULOSKELETAL/RHEUMATOLOGICAL Hx Falls: No - GASTROINTESTINAL Hx Gastrointestinal Disorders: No - GENITOURINARY/GYNECOLOGICAL Hx Genitourinary Disorders: No Other/Comment: c section,ovarian cystectomy - PSYCHIATRIC Hx Substance Use: No - SURGICAL HISTORY Hx Amputation: Yes (right toes 2 years ago) Hx Appendectomy: Yes Hx Coronary Stent: Yes Other/Comment: left charcot's foot - ANESTHESIA Hx Anesthesia: Yes Hx Anesthesia Reactions: Yes (CAN'T BREATH-ADMITTED TO ICU) Hx Malignant Hyperthermia: No Meds Allergies/Adverse Reactions: Allergies Allergy/AdvReac Type Severity Reaction Status Date / Time morphine AdvReac NAUSEA Verified 12/18/16 17:11 - Medications Medications: Current Medications Albuterol/Ipratropium (Duoneb 3 Mg/0.5 Mg (3 Ml) Ud) 3 ml INH RQ6 [facility] Last Admin: 06/01/17 16:04 Dose: 3 ml Alprazolam (Xanax) 0.25 mg PO BID PRN PRN Reason: Anxiety Stop: 06/08/17 11:37 Amlodipine Besylate (Norvasc) 5 mg PO DAILY [facility] Last Admin: 06/01/17 13:01 Dose: 5 mg Aspirin (Ecotrin) 81 mg PO DAILY [facility] Last Admin: 06/01/17 13:01 Dose: 81 mg Atorvastatin Calcium (Lipitor) 40 mg PO HS [facility] Clonidine HCl (Catapres) 0.1 mg PO BID [facility] Last Admin: 06/01/17 18:00 Dose: 0.1 mg Clopidogrel Bisulfate (Plavix) 75 mg PO DAILY [facility] Last Admin: 06/01/17 13:01 Dose: 75 mg Cyanocobalamin (Vitamin B12 1000 Mcg Tab) 1,000 mcg PO DAILY [facility] Last Admin: 06/01/17 13:01 Dose: 1,000 mcg Enalapril Maleate (Vasotec) 20 mg PO BID [facility] Last Admin: 06/01/17 18:00 Dose: 20 mg Ferrous Sulfate (Feosol) 325 mg PO DAILY [facility] Last Admin: 06/01/17 13:01 Dose: 325 mg Furosemide (Lasix) 40 mg IV Q12 [facility] Last Admin: 06/01/17 09:43 Dose: 40 mg Hydrochlorothiazide (Hydrodiuril) 25 mg PO DAILY@1300 [facility] Last Admin: 06/01/17 16:04 Dose: 25 mg Insulin Detemir (Levemir) 80 units SC HS [facility] Insulin Human Lispro (Humalog) 30 units SC TIDAC [facility] Last Admin: 06/01/17 18:17 Dose: 30 units Insulin Human Lispro (Humalog) 0 units SC ACHS [facility] PRN Reason: Protocol Last Admin: 06/01/17 18:28 Dose: 2 units Isosorbide Mononitrate (Imdur) 60 mg PO DAILY [facility] Last Admin: 06/01/17 13:01 Dose: 60 mg Metoprolol Succinate (Toprol Xl) 200 mg PO Q12H [facility] Morphine Sulfate (Morphine Extended Release Tab) 30 mg PO Q12H [facility] Last Admin: 06/01/17 18:38 Dose: 30 mg Nitroglycerin (Nitro-Bid 2% Oint) 1 ea TOP Q6 [facility] Last Admin: 06/01/17 18:28 Dose: 1 ea Oxycodone HCl (Oxycodone Immediate Release Tab) 30 mg PO Q6H PRN PRN Reason: Pain, severe (8-10) Last Admin: 06/01/17 18:39 Dose: 30 mg Physical Exam - Constitutional Appears: Well, Non-toxic, No Acute Distress - Extremities Exam Additional comments: Dressing to right foot appears clean/dry/intact with no strikethrough noted - Neurological Exam Neurological exam: Alert, Oriented x3 - Psychiatric Exam Psychiatric exam: Normal Affect, Normal Mood Results - Vital Signs Recent Vital Signs: Last Vital Signs Temp 99.1 F 06/01/17 19:24 Pulse 94 H 06/01/17 19:24 Resp 20 06/01/17 19:24 BP 151/66 H 06/01/17 19:24 Pulse Ox 96 06/01/17 19:24 - Labs Result Diagrams: 05/31/17 19:22 05/31/17 19:22 Labs: Laboratory Results - last 24 hr 06/01/17 06/01/17 06/01/17 02:38 08:26 09:39 POC Glucose (mg/dL) 446 H* 466 H* Troponin I [id number] 06/01/17 17:24 POC Glucose (mg/dL) 167 H Troponin I Assessment & Plan - Assessment and Plan (Free Text) Assessment: 51 year old female patient with right foot ulceration 2/2 DM, stable Plan: Patient seen and evaluated at bedside Discussed with attending, Dr. Macdonald Patient afebrile, WBC 8.4 Sliver impregnated dressing to right foot kept in place Stable from podiatry standpoint Podiatry will continue to follow patient while in house
[2017-06-01] MEDS: Insulin Detemir 100 Units/ml Inj SC SCH (22:11)
--- NOTE | 2017-06-02 00:11 | HP ---
HISTORY OF PRESENT ILLNESS: This is a 51-year-old female with history of multiple medical problems including type 2 diabetes mellitus, coronary artery disease, peripheral vascular disease, presented to the emergency room with symptoms of shortness of breath, both exertional and at rest, progressed on the day of admission and prompted patient to come to emergency room. Patient denied to have any similar symptoms before. Patient was evaluated in the emergency room and found to have pulmonary congestion and her proBNP was 1219. Subsequently, the patient was admitted for exacerbation of congestive heart failure. REVIEW OF SYSTEMS: Other review of systems is negative. ALLERGIES: POSITIVE FOR MORPHINE. SOCIAL HISTORY: Denied smoking, EtOH, or substance abuse. FAMILY HISTORY: Noncontributory. PAST MEDICAL HISTORY: Hypertension, type 2 diabetes mellitus, peripheral vascular disease status post left transmetatarsal amputation, coronary artery disease status post PCI about 8 years ago. MEDICATIONS: As per MAR. PHYSICAL EXAMINATION: GENERAL: The patient is in bed, comfortable, not in any cardiopulmonary distress. VITAL SIGNS: Blood pressure 157/72, temperature 99.1, respiratory rate 20, and pulse 86. HEENT: Pupils equal, reactive to light. Normal-appearing mucosa of the conjunctivae, oropharynx, and nasal membrane mucosa. NECK: Supple. No JVD. No carotid bruit. No lymph node. No thyromegaly. CHEST AND LUNGS: Bilateral symmetrical expansion. Good air exchange. Bilateral basilar rales. CARDIOVASCULAR SYSTEM: PMI not localized. S1 and S2. No additional sounds. ABDOMEN: Normoactive bowel sounds. No tenderness. No organomegaly. No masses. EXTREMITIES: No cyanosis. No clubbing. No edema. TELEVISION INSPECTOR: Alert, awake, oriented x3. No neurological deficit could be appreciated. ASSESSMENT: 1. Congestive heart failure, acute on top chronic systolic and diastolic. 2. Peripheral vascular disease status post left transmetatarsal amputation. 3. Type 2 diabetes mellitus. 4. Hypertension. PLAN: Lasix 40 mg IV q.12 hours. Resume the patient's home medications. Accu-Chek with insulin coverage. Cardiology consult and follow recommendations. Echocardiogram. Cardiac enzyme every 8 hours x3. Kendra Nevarez MD
[2017-06-02] MEDS: oxyCODONE 10 mg Immediate Release Tab PO PRN ×3 (01:10→14:11)
[2017-06-02] MEDS: Albuterol-Ipratrop 3 mg / 0.5 (3 ml) UD INH SCH ×4 (01:18→19:25)
[2017-06-02] MEDS: Morphine 30 mg SR Tab PO SCH ×2 (02:05→16:46)
[2017-06-02] MEDS: Metoprolol Succinate 100 mg XL Tab PO SCH ×2 (03:08→16:00)
[2017-06-02] MEDS: Nitroglycerin 2% Ointment Foilpak UD TOP SCH ×4 (05:01→22:04)
[2017-06-02] MEDS: Insulin Lispro (humaLOG) 100 Units/ml Inj SC SCH ×7 (08:00→22:08)
--- NOTE | 2017-06-02 09:14 | IP.NPCORE ---
Heart Failure Core Measure - Heart Failure Ejection Fraction: 40 % or Greater Left Ventricular Function to be assessed after discharge: No HELGA Inhibitor Prescribed: Yes Beta-Kenneth Prescribed: Metoprolol Succinate - Follow up Will be discharged to: Home Follow Up Date (must be within 7 days from discharge): 06/14/17 (Dr Zapata ) Follow Up Time: 09:00
[2017-06-02] MEDS: Ammonium Lactate 12% Cream (140 g) TOP SCH ×2 (09:32→18:31)
--- NOTE | 2017-06-02 11:18 | CARD ---
APPROVED REPORT EXAM: Two-dimensional and M-mode echocardiogram with Doppler and color Doppler. Other Information Quality : GoodRhythm : NSR INDICATION Chest Pain Surgery/Intervention Status/Post Intervention: Stent 2D DIMENSIONS IVSd1.65 (0.7-1.1cm)LVDd5.29 (3.9-5.9cm) LVOT Diameter2.08 (1.8-2.4cm)PWd1.27 (0.7-1.1cm) IVSs1.75 (0.8-1.2cm)LVDs4.38 (2.5-4.0cm) FS (%) 17.1 %PWs1.44 (0.8-1.2cm) M-Mode DIMENSIONS Left Atrium (MM)5.19 (2.5-4.0cm)IVSd1.03 (0.7-1.1cm) Aortic Root2.66 (2.2-3.7cm)LVDd5.72 (4.0-5.6cm) Aortic Cusp Exc.1.72 (1.5-2.0cm)PWd0.91 (0.7-1.1cm) IVSs1.59 cmFS (%) 27 % LVDs4.19 (2.0-3.8cm)PWs1.19 cm Mitral Valve MV E Drhmhsha784.9cm/sMV DECEL PIRV572emWR A Jsjdtxhs384.4cm/s MV GBX68tsF/A ratio1.2MVA (PHT)4.58cm2 TDI Lateral E' Peak V8.39cm/sMedial E' Peak V7.17cm/sE/Lateral E'14.3 E/Medial E'16.7 Pulmonary Valve PV Peak Xtwggbml07.8cm/s LEFT VENTRICLE The left ventricle is normal size. There is mild to moderate concentric left ventricular hypertrophy. The left ventricular function is normal. The left ventricular ejection fraction is 50-55% There is normal LV segmental wall motion. The left ventricular diastolic function is normal. No left ventricle thrombus noted on this study. There is no ventricular septal defect visualized. There is no left ventricular aneurysm. There is no mass noted in the left ventricle. RIGHT VENTRICLE The right ventricle is normal size. There is normal right ventricular wall thickness. The right ventricular systolic function is normal. ATRIA The left atrium size is normal. The right atrium size is normal. The interatrial septum is intact with no evidence for an atrial septal defect. AORTIC VALVE The aortic valve is normal in structure. No aortic regurgitation is present. There is no aortic valvular stenosis. There is no aortic valvular vegetation. MITRAL VALVE The mitral valve is normal in structure. There is no evidence of mitral valve prolapse. There is no mitral valve stenosis. There is no mitral valve regurgitation noted. TRICUSPID VALVE The tricuspid valve is normal in structure. There is no tricuspid valve regurgitation noted. There is no tricuspid valve prolapse or vegetation. There is no tricuspid valve stenosis. PULMONIC VALVE The pulmonary valve is normal in structure. There is no pulmonic valvular regurgitation. There is no pulmonic valvular stenosis. GREAT VESSELS The aortic root is normal in size. The ascending aorta is normal in size. The IVC is normal in size and collapses >50% with inspiration. PERICARDIAL EFFUSION The pericardium appears normal. There is no pleural effusion. <Conclusion> Normal LV Systolic function Concentric LVH
--- NOTE | 2017-06-02 11:50 | CP.PCM.PN ---
Subjective - Date & Time of Evaluation Date of Evaluation: 06/02/17 Time of Evaluation: 11:48 - Subjective Subjective: 51 year old female seen at bedside for wellness check. She is a patient of Dr. Macdonald and was sent to the ED for shortness of breath on 05/[address] Macdonald. Patient denies any pedal complaints at this time. States that her pain is well controlled. Denies N/V/F/C/CP/SOB Objective - Vital Signs/Intake and Output Vital Signs (last 24 hours): Temp Pulse Resp BP Pulse Ox 97.6 F 91 H 18 157/89 H 95 06/02/17 07:54 06/02/17 09:29 06/02/17 07:54 06/02/17 09:29 06/02/17 07:54 - Medications Medications: Current Medications Albuterol/Ipratropium (Duoneb 3 Mg/0.5 Mg (3 Ml) Ud) 3 ml INH RQ6 [facility] Last Admin: 06/02/17 07:34 Dose: 3 ml Alprazolam (Xanax) 0.25 mg PO BID PRN PRN Reason: Anxiety Stop: 06/08/17 11:37 Last Admin: 06/02/17 09:38 Dose: 0.25 mg Amlodipine Besylate (Norvasc) 5 mg PO DAILY [facility] Last Admin: 06/02/17 09:28 Dose: 5 mg Aspirin (Ecotrin) 81 mg PO DAILY [facility] Last Admin: 06/02/17 09:28 Dose: 81 mg Atorvastatin Calcium (Lipitor) 40 mg PO HS [facility] Last Admin: 06/01/17 22:12 Dose: 40 mg Clonidine HCl (Catapres) 0.1 mg PO BID [facility] Last Admin: 06/02/17 09:27 Dose: 0.1 mg Clopidogrel Bisulfate (Plavix) 75 mg PO DAILY [facility] Last Admin: 06/02/17 09:30 Dose: 75 mg Cyanocobalamin (Vitamin B12 1000 Mcg Tab) 1,000 mcg PO DAILY [facility] Last Admin: 06/02/17 09:28 Dose: 1,000 mcg Enalapril Maleate (Vasotec) 20 mg PO BID [facility] Last Admin: 06/02/17 09:27 Dose: 20 mg Ferrous Sulfate (Feosol) 325 mg PO DAILY [facility] Last Admin: 06/01/17 13:01 Dose: 325 mg Furosemide (Lasix) 40 mg IV Q12 [facility] Last Admin: 06/02/17 09:27 Dose: 40 mg Heparin Sodium (Porcine) (Heparin) 5,000 units SC Q12 [facility] PRN Reason: Protocol Last Admin: 06/02/17 09:31 Dose: Not Given Hydrochlorothiazide (Hydrodiuril) 25 mg PO DAILY@1300 [facility] Last Admin: 06/01/17 16:04 Dose: 25 mg Insulin Detemir (Levemir) 80 units SC HS [facility] Last Admin: 06/01/17 22:11 Dose: 80 units Insulin Human Lispro (Humalog) 30 units SC TIDAC [facility] Last Admin: 06/02/17 08:00 Dose: 30 units Insulin Human Lispro (Humalog) 0 units SC ACHS [facility] PRN Reason: Protocol Last Admin: 06/02/17 08:00 Dose: Not Given Isosorbide Mononitrate (Imdur) 60 mg PO DAILY [facility] Last Admin: 06/02/17 09:28 Dose: 60 mg Lactic Acid (Lac-Hydrin 12% Cream (140 G)) 1 ea TOP BID [facility] Last Admin: 06/02/17 09:32 Dose: 1 ea Metoprolol Succinate (Toprol Xl) 200 mg PO Q12H [facility] Last Admin: 06/02/17 03:08 Dose: 200 mg Morphine Sulfate (Morphine Extended Release Tab) 30 mg PO Q12H [facility] Last Admin: 06/02/17 02:05 Dose: Not Given Nitroglycerin (Nitro-Bid 2% Oint) 1 ea TOP Q6 [facility] Last Admin: 06/02/17 09:29 Dose: 1 ea Oxycodone HCl (Oxycodone Immediate Release Tab) 30 mg PO Q6H PRN PRN Reason: Pain, severe (8-10) Last Admin: 06/02/17 05:06 Dose: 30 mg - Labs Labs: 05/31/17 19:22 05/31/17 19:22 - Constitutional Appears: Well, Non-toxic, No Acute Distress - Extremities Exam Additional comments: Per Dr. Macdonald, dressing left on No examination of wounds performed - Neurological Exam Neurological Exam: Alert, Awake, Oriented x3 - Psychiatric Exam Psychiatric exam: Normal Affect, Normal Mood Assessment and Plan - Assessment and Plan (Free Text) Assessment: 51 year old female seen for right foot ulcerations bedside and wellness check Plan: Patient seen and evaluated at bedside Charts, labs, vitals reviewed Per Dr. Macdonald, dressings not changed Patient stable from podiatry standpoint To followup with Dr. Macdonald upon discharge Podiatry will continue to follow while patient in house
--- NOTE | 2017-06-02 12:06 | CARD ---
APPROVED REPORT EKG Measurement Heart [id number] <Conclusion> Normal sinus rhythm Nonspecific ST and T wave abnormality Abnormal ECG
--- NOTE | 2017-06-02 13:38 | RAD ---
HISTORY: follow up chf COMPARISON: 05/31/2017 TECHNIQUE: Chest PA and lateral FINDINGS: LUNGS: No active pulmonary disease. PLEURA: No significant pleural effusion identified. No pneumothorax apparent. CARDIOVASCULAR: Normal. OSSEOUS STRUCTURES: No significant abnormalities. VISUALIZED UPPER ABDOMEN: Normal. OTHER FINDINGS: None. IMPRESSION: No active disease.
[2017-06-02] MEDS: Insulin Detemir 100 Units/ml Inj SC SCH (22:06)
[2017-06-03] MEDS: Albuterol-Ipratrop 3 mg / 0.5 (3 ml) UD INH SCH ×4 (01:05→19:11)
[2017-06-03] MEDS: oxyCODONE 10 mg Immediate Release Tab PO PRN ×3 (01:14→21:17)
[2017-06-03] MEDS: Morphine 30 mg SR Tab PO SCH ×2 (04:17→16:22)
[2017-06-03] MEDS: Nitroglycerin 2% Ointment Foilpak UD TOP SCH ×4 (04:18→22:45)
[2017-06-03] MEDS: Metoprolol Succinate 100 mg XL Tab PO SCH ×2 (04:19→16:26)
[2017-06-03 06:14] LABS: HEMATOCRIT 32.2 % (34.0-47.0); MEAN CELL VOLUME 79.3 fl (81.0-99.0); MEAN CORPUSCULAR HEMOGLOBIN 26.7 pg (27.0-31.0); MEAN CORPUSCULAR HGB CONC 33.7 g/dL (33.0-37.0); RED CELL DISTRIBUTION WIDTH 17.7 % (11.5-14.5); WHITE BLOOD COUNT 6.9 K/uL (4.8-10.8)
[2017-06-03 06:21] LABS: CALCIUM 8.5 mg/dL (8.4-10.2); MAGNESIUM 2.3 MG/DL (1.6-2.3); POTASSIUM 4.1 MMOL/L (3.6-5.0)
--- NOTE | 2017-06-03 08:30 | CP.PCM.PN ---
Subjective - Date & Time of Evaluation Date of Evaluation: 06/03/17 Time of Evaluation: 08:30 - Subjective Subjective: Podiatry Progress Note - Dr. Macdonald 51 y/o female seen at bedside today for right foot ulceration. Pt is known to Dr. Macdonald's service and was last seen on Wednesday for her foot ulcer, at which time her dressing was put on. Dressing remains clean, dry and intact to R foot. Pt denies any acute events overnight and says she is not having any pain in the feet or legs at this time. Pt says she is going for a stress test today. Pt denies F/C/N/V/CP/SOB since her admission to the hospital. Objective - Vital Signs/Intake and Output Vital Signs (last 24 hours): Temp Pulse Resp BP Pulse Ox 98.5 F 77 17 154/74 H 94 L 06/03/17 07:58 06/03/17 07:58 06/03/17 07:58 06/03/17 07:58 06/03/17 07:58 - Medications Medications: Current Medications Albuterol/Ipratropium (Duoneb 3 Mg/0.5 Mg (3 Ml) Ud) 3 ml INH RQ6 [facility] Last Admin: 06/03/17 07:41 Dose: 3 ml Alprazolam (Xanax) 0.25 mg PO BID PRN PRN Reason: Anxiety Stop: 06/08/17 11:37 Last Admin: 06/02/17 09:38 Dose: 0.25 mg Amlodipine Besylate (Norvasc) 5 mg PO DAILY [facility] Last Admin: 06/02/17 09:28 Dose: 5 mg Aspirin (Ecotrin) 81 mg PO DAILY [facility] Last Admin: 06/02/17 09:28 Dose: 81 mg Atorvastatin Calcium (Lipitor) 40 mg PO HS [facility] Last Admin: 06/02/17 22:06 Dose: 40 mg Clonidine HCl (Catapres) 0.1 mg PO BID [facility] Last Admin: 06/02/17 17:00 Dose: 0.1 mg Clopidogrel Bisulfate (Plavix) 75 mg PO DAILY [facility] Last Admin: 06/02/17 09:30 Dose: 75 mg Cyanocobalamin (Vitamin B12 1000 Mcg Tab) 1,000 mcg PO DAILY [facility] Last Admin: 06/02/17 09:28 Dose: 1,000 mcg Enalapril Maleate (Vasotec) 20 mg PO BID [facility] Last Admin: 06/02/17 16:50 Dose: 20 mg Ferrous Sulfate (Feosol) 325 mg PO DAILY [facility] Last Admin: 06/02/17 14:12 Dose: 325 mg Furosemide (Lasix) 40 mg IV Q12 [facility] Last Admin: 06/02/17 22:06 Dose: 40 mg Heparin Sodium (Porcine) (Heparin) 5,000 units SC Q12 [facility] PRN Reason: Protocol Last Admin: 06/02/17 22:08 Dose: Not Given Hydrochlorothiazide (Hydrodiuril) 25 mg PO DAILY@1300 [facility] Last Admin: 06/02/17 13:00 Dose: 25 mg Insulin Detemir (Levemir) 80 units SC HS [facility] Last Admin: 06/02/17 22:06 Dose: 80 units Insulin Human Lispro (Humalog) 30 units SC TIDAC [facility] Last Admin: 06/02/17 17:00 Dose: 30 units Insulin Human Lispro (Humalog) 0 units SC ACHS [facility] PRN Reason: Protocol Last Admin: 06/02/17 22:08 Dose: Not Given Isosorbide Mononitrate (Imdur) 60 mg PO DAILY [facility] Last Admin: 06/02/17 09:28 Dose: 60 mg Lactic Acid (Lac-Hydrin 12% Cream (140 G)) 1 ea TOP BID [facility] Last Admin: 06/02/17 18:31 Dose: 1 ea Metoprolol Succinate (Toprol Xl) 200 mg PO Q12H [facility] Last Admin: 06/03/17 04:19 Dose: 200 mg Morphine Sulfate (Morphine Extended Release Tab) 30 mg PO Q12H [facility] Last Admin: 06/03/17 04:17 Dose: 30 mg Nitroglycerin (Nitro-Bid 2% Oint) 1 ea TOP Q6 [facility] Last Admin: 06/03/17 04:18 Dose: 1 ea Oxycodone HCl (Oxycodone Immediate Release Tab) 30 mg PO Q6H PRN PRN Reason: Pain, severe (8-10) Last Admin: 06/03/17 01:14 Dose: 30 mg - Labs Labs: 06/03/17 05:15 06/03/17 05:15 - Constitutional Appears: Well, Non-toxic, No Acute Distress - Extremities Exam Additional comments: Dressing remains clean, dry and intact to R foot No edema, erythema or cellulitic changes noted to either lower extremity Surgical shoe to R foot on at time of visit - Neurological Exam Neurological Exam: Alert, Awake, Oriented x3 - Psychiatric Exam Psychiatric exam: Normal Affect, Normal Mood Assessment and Plan - Assessment and Plan (Free Text) Assessment: 51 y/o female with right foot ulceration secondary to diabetes mellitus Plan: Pt seen and evaluated at bedside this morning Discussed plan with attending Dr. Macdonald Labs and vitals reviewed- pt is afebrile, WBC 6.[address] Macdonald, dressing to remain intact to R foot; to be changed weekly in office on Mondays by Dr. Macdonald Patient is stable from podiatry standpoint, will F/U with Dr. Macdonald in office upon discharge Podiatry to continue following while patient is in house
[2017-06-03] MEDS ORDERED: Aminophylline 25 mg/ml Inj ONE (08:34)
[2017-06-03] MEDS: Insulin Lispro (humaLOG) 100 Units/ml Inj SC SCH ×7 (09:17→23:47)
[2017-06-03] MEDS: Ammonium Lactate 12% Cream (140 g) TOP SCH ×2 (10:51→16:22)
[2017-06-03] MEDS: Sodium Chloride 0.45% 1,000 ML IV SCH ×2 (13:34→21:00)
[2017-06-03] MEDS: Insulin Detemir 100 Units/ml Inj SC SCH (23:40)
[2017-06-04] MEDS: Albuterol-Ipratrop 3 mg / 0.5 (3 ml) UD INH SCH ×4 (01:08→19:01)
[2017-06-04] MEDS: Metoprolol Succinate 100 mg XL Tab PO SCH ×2 (03:38→16:33)
[2017-06-04] MEDS: oxyCODONE 10 mg Immediate Release Tab PO PRN ×2 (03:46→19:43)
[2017-06-04] MEDS: Nitroglycerin 2% Ointment Foilpak UD TOP SCH ×5 (04:38→21:45)
[2017-06-04] MEDS: Morphine 30 mg SR Tab PO SCH ×2 (04:39→16:32)
[2017-06-04 06:16] LABS: ALB/GLOB RATIO 1.1 (1.0-2.1); BILIRUBIN,TOTAL 0.5 mg/dl (0.2-1.3); CALCIUM 9.1 mg/dL (8.4-10.2); POTASSIUM 4.3 MMOL/L (3.6-5.0); TOTAL PROTEIN 7.3 G/DL (6.3-8.2)
--- NOTE | 2017-06-04 09:15 | PN ---
DATE: 06/02/2017 SUBJECTIVE: The patient was seen on 06/02/2017. She was not in any cardiopulmonary distress with decreased shortness of breath. PHYSICAL EXAMINATION: VITAL SIGNS: Blood pressure was 138/69, temperature 98.0, respiratory rate 20, and pulse 90. HEENT: Pupils equal, reactive to light. Normal appearing mucosa of the conjunctivae, oropharyngeal and nasal membrane mucosa. NECK: Supple. No JVD. No carotid bruit. No lymph node. No thyromegaly. CHEST AND LUNGS: Bilateral symmetrical expansion. Good air exchange. No rales, no rhonchi. CARDIOVASCULAR: PMI not localized. S1 and S2. No additional sounds. ABDOMEN: Normoactive bowel sounds. No tenderness. No organomegaly. No masses. EXTREMITIES: No cyanosis, no clubbing, no edema. CENTRAL NERVOUS SYSTEM: Alert, awake, oriented x3. No neurological deficit could be appreciated. ASSESSMENT: 1. Congestive heart failure, acute on chronic, both systolic and diastolic. 2. Type 2 diabetes mellitus, uncontrolled. 3. Peripheral vascular disease, status post right transmetatarsal amputation. PLAN: We will repeat chest x-ray PA and lateral, and compare with admission x-ray and follow cardiology recommendations. Continue the followup with podiatry. Kendra Nevarez MD
--- NOTE | 2017-06-04 09:29 | PN ---
DAILY PROGRESS NOTE SUBJECTIVE: The patient is seen today 06/03/2017. She is not in any cardiopulmonary distress but the patient serum creatinine went up to 1.6, BUN 57. PHYSICAL EXAMINATION: VITAL SIGNS: Blood pressure is 146/73, temperature 98.3, respiratory rate 18 and pulse 80. HEENT: Pupils equal, reactive to light. Normal-appearing mucosa of the conjunctivae, oropharynx, and nasal membrane mucosa. NECK: Supple. No JVD. No carotid bruit. No lymph nodes. No thyromegaly. CHEST AND LUNGS: Bilateral symmetrical expansion with good air exchange. No rales, no rhonchi. CARDIOVASCULAR SYSTEM: PMI not localized swelling. S1, S2. No additional sounds. ABDOMEN: Normoactive bowel sounds. No tenderness. No organomegaly. No masses. EXTREMITIES: No cyanosis, no clubbing, no edema. FLIGHT KITCHEN MANAGER: Alert, awake, oriented x3. No neurological deficit could be appreciated. LABORATORY DATA: Echocardiogram showed left ventricular hypertrophy with ejection fraction of 55%. Repeated chest x-ray did not show pulmonary congestion. ASSESSMENT: 1. Acute on chronic diastolic congestive heart failure next. 2. Renal azotemia with elevation of BUN and creatinine. 3. Type 2 diabetes mellitus. 4. Peripheral vascular disease with diabetic foot, currently being surgically dressed and being followed by podiatry. PLAN: We will give the patient gentle hydration and stop Lasix temporally and monitor electrolytes. Will follow recommendations of cardiology. Kendra Nevarez MD
[2017-06-04] MEDS: Insulin Lispro (humaLOG) 100 Units/ml Inj SC SCH ×7 (10:15→21:27)
[2017-06-04] MEDS: Ammonium Lactate 12% Cream (140 g) TOP SCH ×2 (10:24→18:47)
--- NOTE | 2017-06-04 10:49 | CARD ---
APPROVED REPORT Protocol: LEXISCAN Test Type: Stress Nuclear Medications: ALBUTEROL, ALPRAZOLAM 0.25MG NORVASC 5MG, ECOTRIN 81MG, LIPITOR 40MG, CATAPRES 0.1MG PLAVIX 75MG, CYANOCOBALAMIN 1, 00MCQ VIT. B12, VASTEC 20MG, FEOSOL 325MG, HYDRODIURIL 25MG, LEVEMIR 80 UNITS, INSULIN IMDUR 60MG, TOPROL XL 200M, MORPHINE 30MG ,OXYCODONE 30MG. Medical History: HYPERTENSION, DIABETES, PERIPHERAL DISEASE, STATUS POST LEFTTRANSMETATARSAL AMPUTATION, CORONARY ARTERY DISEASE STATUS POST PCI ABOUT 8 YEARS AGO. Target HR: 169 bpm Resting ECG: septal Q waves Resting Heart Rate: 91 bpm Resting Blood Pressure: 157/106mmHg submaximum (85%): 144 bpm TEST SUMMARY PREINJECTPRE-[id number]/[id number]. [id number]/[id number]. INJECTIONNS FLUSH00:[id number]/[id number]. INJECTIONNUC MED00:[id number]/[id number]. [id number]/94.0. PROCEDURE Pharmacologic stress testing was performed using 0.4mg per 5ml of regadenoson given intravenously over 7-10 seconds. POST EXERCISE Reason for Termination: Pharmacologic Stress Test Target HR: No Max HR: 100 bpm 59% of Maximum Predicted HR: 169 bpm Exercise duration: 01:00 min:sec, 0 Stage Exercise capacity: 1.0METs Max Blood Pressure: 223/98mmHg Blood Pressure response to exercise: normal resting BP - exaggerated response Heart Rate response to exercise: appropriate Chest Pain: No, none Angina index: 0 Arrhythmia: No, none ST Change: No, none Deviation: 0 mm Clinical Indications Under Appropriate Use Criteria This 51-year-old chronically overweight patient off type 1 diabetes since the age of 17 underwent this study to rule out evidence off potentially ischemic myocardium. She gave history of having required coronary stenting approximately 10 years back. Now she was hospitalized with marked dyspnea on exertion. Her resting electrocardiogram showed sinus rhythm with absence of R waves in V1 and V2 suggestive of an old septal wall myocardial infarction. Her resting blood pressure was 157/106 mmHg. Her cardiac auscultation was unremarkable. Stress EKG Interpretation Because of her weight the patient underwent a 2 day myocardial perfusion protocol. On the first day she underwent a myocardial scan after having received 0.4 mg of Lexiscan intravenously over 10 seconds followed immediately by 30 mCi of sestamibi given intravenously. The patient tolerated Lexiscan infusion without any chest pain and without any EKG changes of myocardial ischemia. The patient left the stress lab symptom free and hemodynamically stable. 45 minutes later she underwent myocardial imaging. On the following day the patient was given 30 mCi of sestamibi intravenously followed 45 minutes later by myocardial scanning. The 2 sets of images were processed. Gated and planar images were acquired. Tomographic images were examined. EXAM: Myocardial Perfusion REST/STRESS Image QualityGood Imaging Protocol The imaging protocol used to acquire images was Stress Tc-99m/rest Tc-99m 1 day Rest Spect myocardial perfusion imaging was performed in supine position 90 minutes following the injection of 30 mCi of Tc-99 Myoview. Time of rest injection: 7:45 Time of rest imagin:10 At peak stress, the patient was injected intravenously with 30mCi of Tc-99 tetrofosmin after an infusion time of minutes and seconds. Time of stress injection: 9:13 Time of stress imagin:30 Gated Stress Spect was performed 130 minutes after intravenous Tc-99 Myoview injection. The images were gated to evaluate regional wall motion and calculate ventricular ejection fraction. LV Perfusion Both the resting as well as post Lexiscan images had moderate degree of obesity related as well as motion artifacts superimposed on them. Both sets of images demonstrated a fixed sestamibi uptake deficit involving the basal one third of lateral wall. Otherwise both sets of images demonstrated normal regional sestamibi uptake. Wall Motion Gated images showed a mildly dilated left ventricle with mild generalized hypokinesia and an ejection fraction of 46%. CONCLUSION 1. The images had obesity related as well as mild motion artifacts superimposed on them. The images revealed evidence of myocardial scar involving basal one third of lateral wall. There was no evidence of potentially ischemic myocardium. Her resting left ventricular ejection fraction was 46%.
[2017-06-04] MEDS: Sodium Chloride 0.45% 1,000 ML IV SCH ×2 (12:28→23:33)
--- NOTE | 2017-06-04 14:36 | CP.PCM.PN ---
Subjective - Date & Time of Evaluation Date of Evaluation: 06/02/17 Time of Evaluation: 20:00 - Subjective Subjective: pt feels better. echo nml ef. mildly less edema Objective - Vital Signs/Intake and Output Vital Signs (last 24 hours): Temp Pulse Resp BP Pulse Ox 98 F 79 20 155/68 H 95 06/04/17 12:00 06/04/17 12:00 06/04/17 12:00 06/04/17 12:00 06/04/17 12:00 Intake and Output: 06/04/17 06/04/17 06:59 18:59 Intake Total 1720 Balance 1720 - Medications Medications: Current Medications Albuterol/Ipratropium (Duoneb 3 Mg/0.5 Mg (3 Ml) Ud) 3 ml INH RQ6 [facility] Last Admin: 06/04/17 13:43 Dose: 3 ml Alprazolam (Xanax) 0.25 mg PO BID PRN PRN Reason: Anxiety Stop: 06/08/17 11:37 Last Admin: 06/04/17 10:25 Dose: 0.25 mg Amlodipine Besylate (Norvasc) 5 mg PO DAILY [facility] Last Admin: 06/04/17 10:21 Dose: 5 mg Aspirin (Ecotrin) 81 mg PO DAILY [facility] Last Admin: 06/04/17 10:20 Dose: 81 mg Atorvastatin Calcium (Lipitor) 40 mg PO HS [facility] Last Admin: 06/03/17 22:43 Dose: 40 mg Clonidine HCl (Catapres) 0.1 mg PO BID [facility] Last Admin: 06/04/17 10:22 Dose: 0.1 mg Clopidogrel Bisulfate (Plavix) 75 mg PO DAILY [facility] Last Admin: 06/04/17 10:20 Dose: 75 mg Cyanocobalamin (Vitamin B12 1000 Mcg Tab) 1,000 mcg PO DAILY [facility] Last Admin: 06/04/17 10:22 Dose: 1,000 mcg Enalapril Maleate (Vasotec) 20 mg PO BID [facility] Last Admin: 06/04/17 10:20 Dose: 20 mg Ferrous Sulfate (Feosol) 325 mg PO DAILY [facility] Last Admin: 06/04/17 10:20 Dose: 325 mg Heparin Sodium (Porcine) (Heparin) 5,000 units SC Q12 [facility] PRN Reason: Protocol Last Admin: 06/04/17 10:20 Dose: Not Given Hydrochlorothiazide (Hydrodiuril) 25 mg PO DAILY@1300 [facility] Last Admin: 06/04/17 12:29 Dose: 25 mg Sodium Chloride (Sodium Chloride 0.45%) 1,000 mls @ 80 mls/hr IV .[id number] [facility] Stop: 06/05/17 10:43 Last Admin: 06/04/17 12:28 Dose: 80 mls/hr Insulin Detemir (Levemir) 80 units SC HS [facility] Last Admin: 06/03/17 23:40 Dose: 80 units Insulin Human Lispro (Humalog) 30 units SC TIDAC [facility] Last Admin: 06/04/17 12:29 Dose: 30 units Insulin Human Lispro (Humalog) 0 units SC ACHS [facility] PRN Reason: Protocol Last Admin: 06/04/17 12:30 Dose: 2 units Isosorbide Mononitrate (Imdur) 60 mg PO DAILY [facility] Last Admin: 06/04/17 10:21 Dose: 60 mg Lactic Acid (Lac-Hydrin 12% Cream (140 G)) 1 ea TOP BID [facility] Last Admin: 06/04/17 10:24 Dose: 1 ea Metoprolol Succinate (Toprol Xl) 200 mg PO Q12H [facility] Last Admin: 06/04/17 03:38 Dose: 200 mg Morphine Sulfate (Morphine Extended Release Tab) 30 mg PO Q12H [facility] Last Admin: 06/04/17 04:39 Dose: Not Given Nitroglycerin (Nitro-Bid 2% Oint) 1 ea TOP Q6 [facility] Last Admin: 06/04/17 10:21 Dose: Not Given Oxycodone HCl (Oxycodone Immediate Release Tab) 30 mg PO Q6H PRN PRN Reason: Pain, severe (8-10) Last Admin: 06/04/17 03:46 Dose: 30 mg - Labs Labs: 06/03/17 05:15 06/04/17 04:47 Assessment and Plan (1) Dyspnea Status: Acute (2) CAD (coronary artery disease) Status: Chronic (3) Diabetes Status: Chronic (4) Dyslipidemia Status: Chronic (5) Essential hypertension Status: Chronic (6) Peripheral vascular disease Status: Chronic
--- NOTE | 2017-06-04 14:39 | CP.PCM.PN ---
Subjective - Date & Time of Evaluation Date of Evaluation: 06/04/17 Time of Evaluation: 14:39 - Subjective Subjective: st reveals no ischemia. small inf/lat scar. pt has a hx of mi in past. labs reveal prerenal state. Objective - Vital Signs/Intake and Output Vital Signs (last 24 hours): Temp Pulse Resp BP Pulse Ox 98 F 79 20 155/68 H 95 06/04/17 12:00 06/04/17 12:00 06/04/17 12:00 06/04/17 12:00 06/04/17 12:00 Intake and Output: 06/04/17 06/04/17 06:59 18:59 Intake Total 1720 Balance 1720 - Medications Medications: Current Medications Albuterol/Ipratropium (Duoneb 3 Mg/0.5 Mg (3 Ml) Ud) 3 ml INH RQ6 [facility] Last Admin: 06/04/17 13:43 Dose: 3 ml Alprazolam (Xanax) 0.25 mg PO BID PRN PRN Reason: Anxiety Stop: 06/08/17 11:37 Last Admin: 06/04/17 10:25 Dose: 0.25 mg Amlodipine Besylate (Norvasc) 5 mg PO DAILY [facility] Last Admin: 06/04/17 10:21 Dose: 5 mg Aspirin (Ecotrin) 81 mg PO DAILY [facility] Last Admin: 06/04/17 10:20 Dose: 81 mg Atorvastatin Calcium (Lipitor) 40 mg PO HS [facility] Last Admin: 06/03/17 22:43 Dose: 40 mg Clonidine HCl (Catapres) 0.1 mg PO BID [facility] Last Admin: 06/04/17 10:22 Dose: 0.1 mg Clopidogrel Bisulfate (Plavix) 75 mg PO DAILY [facility] Last Admin: 06/04/17 10:20 Dose: 75 mg Cyanocobalamin (Vitamin B12 1000 Mcg Tab) 1,000 mcg PO DAILY [facility] Last Admin: 06/04/17 10:22 Dose: 1,000 mcg Ferrous Sulfate (Feosol) 325 mg PO DAILY [facility] Last Admin: 06/04/17 10:20 Dose: 325 mg Heparin Sodium (Porcine) (Heparin) 5,000 units SC Q12 [facility] PRN Reason: Protocol Last Admin: 06/04/17 10:20 Dose: Not Given Hydrochlorothiazide (Hydrodiuril) 25 mg PO DAILY@1300 [facility] Last Admin: 06/04/17 12:29 Dose: 25 mg Sodium Chloride (Sodium Chloride 0.45%) 1,000 mls @ 80 mls/hr IV .[id number] [facility] Stop: 06/05/17 10:43 Last Admin: 06/04/17 12:28 Dose: 80 mls/hr Insulin Detemir (Levemir) 80 units SC HS [facility] Last Admin: 06/03/17 23:40 Dose: 80 units Insulin Human Lispro (Humalog) 30 units SC TIDAC [facility] Last Admin: 06/04/17 12:29 Dose: 30 units Insulin Human Lispro (Humalog) 0 units SC ACHS [facility] PRN Reason: Protocol Last Admin: 06/04/17 12:30 Dose: 2 units Isosorbide Mononitrate (Imdur) 60 mg PO DAILY [facility] Last Admin: 06/04/17 10:21 Dose: 60 mg Lactic Acid (Lac-Hydrin 12% Cream (140 G)) 1 ea TOP BID [facility] Last Admin: 06/04/17 10:24 Dose: 1 ea Metoprolol Succinate (Toprol Xl) 200 mg PO Q12H [facility] Last Admin: 06/04/17 03:38 Dose: 200 mg Morphine Sulfate (Morphine Extended Release Tab) 30 mg PO Q12H [facility] Last Admin: 06/04/17 04:39 Dose: Not Given Nitroglycerin (Nitro-Bid 2% Oint) 1 ea TOP Q6 [facility] Last Admin: 06/04/17 10:21 Dose: Not Given Oxycodone HCl (Oxycodone Immediate Release Tab) 30 mg PO Q6H PRN PRN Reason: Pain, severe (8-10) Last Admin: 06/04/17 03:46 Dose: 30 mg Ramipril (Altace) 5 mg PO DAILY [facility] - Labs Labs: 06/03/17 05:15 06/04/17 04:47 Assessment and Plan (1) Dyspnea Status: Acute (2) CAD (coronary artery disease) Status: Chronic (3) Diabetes Status: Chronic (4) Dyslipidemia Status: Chronic (5) Essential hypertension Status: Chronic (6) Peripheral vascular disease Status: Chronic - Assessment and Plan (Free Text) Plan: NO NEED FOR CATH CHANGED TO RAMIPRIL WOULD HOLD DIURETICS AND OUTPT USE LOW DOSE LASIX STABLE AT THIS POINT
[2017-06-04] MEDS: Insulin Detemir 100 Units/ml Inj SC SCH (21:40)
[2017-06-05] MEDS: Albuterol-Ipratrop 3 mg / 0.5 (3 ml) UD INH SCH ×4 (01:03→19:09)
[2017-06-05] MEDS: oxyCODONE 10 mg Immediate Release Tab PO PRN ×3 (01:29→20:50)
[2017-06-05] MEDS: Morphine 30 mg SR Tab PO SCH ×2 (02:51→14:19)
[2017-06-05] MEDS: Metoprolol Succinate 100 mg XL Tab PO SCH ×2 (05:16→14:21)
[2017-06-05] MEDS: Nitroglycerin 2% Ointment Foilpak UD TOP SCH ×5 (05:16→21:20)
[2017-06-05] MEDS: Insulin Lispro (humaLOG) 100 Units/ml Inj SC SCH ×7 (07:03→21:49)
[2017-06-05] MEDS: Ammonium Lactate 12% Cream (140 g) TOP SCH ×2 (09:14→16:51)
--- NOTE | 2017-06-05 12:36 | CP.PCM.PN ---
Subjective - Date & Time of Evaluation Date of Evaluation: 06/05/17 Time of Evaluation: 12:35 Objective - Vital Signs/Intake and Output Vital Signs (last 24 hours): Temp Pulse Resp BP Pulse Ox 98 F 80 18 150/78 97 06/05/17 11:56 06/05/17 11:56 06/05/17 11:56 06/05/17 11:56 06/05/17 11:56 - Medications Medications: Current Medications Albuterol/Ipratropium (Duoneb 3 Mg/0.5 Mg (3 Ml) Ud) 3 ml INH RQ6 [facility] Last Admin: 06/05/17 07:31 Dose: 3 ml Alprazolam (Xanax) 0.25 mg PO BID PRN PRN Reason: Anxiety Stop: 06/08/17 11:37 Last Admin: 06/05/17 11:18 Dose: 0.25 mg Amlodipine Besylate (Norvasc) 5 mg PO DAILY [facility] Last Admin: 06/05/17 09:12 Dose: 5 mg Aspirin (Ecotrin) 81 mg PO DAILY [facility] Last Admin: 06/05/17 09:10 Dose: 81 mg Atorvastatin Calcium (Lipitor) 40 mg PO HS [facility] Last Admin: 06/04/17 21:42 Dose: 40 mg Clonidine HCl (Catapres) 0.2 mg PO Q12 [facility] Clopidogrel Bisulfate (Plavix) 75 mg PO DAILY [facility] Last Admin: 06/05/17 09:13 Dose: 75 mg Cyanocobalamin (Vitamin B12 1000 Mcg Tab) 1,000 mcg PO DAILY [facility] Last Admin: 06/05/17 09:10 Dose: 1,000 mcg Ferrous Sulfate (Feosol) 325 mg PO DAILY [facility] Last Admin: 06/05/17 09:11 Dose: 325 mg Heparin Sodium (Porcine) (Heparin) 5,000 units SC Q12 [facility] PRN Reason: Protocol Last Admin: 06/05/17 09:14 Dose: Not Given Insulin Detemir (Levemir) 80 units SC HS [facility] Last Admin: 06/04/17 21:40 Dose: 80 units Insulin Human Lispro (Humalog) 30 units SC TIDAC [facility] Last Admin: 06/05/17 12:08 Dose: 30 units Insulin Human Lispro (Humalog) 0 units SC ACHS [facility] PRN Reason: Protocol Last Admin: 06/05/17 12:09 Dose: 4 units Isosorbide Mononitrate (Imdur) 60 mg PO DAILY [facility] Last Admin: 06/05/17 09:10 Dose: 60 mg Lactic Acid (Lac-Hydrin 12% Cream (140 G)) 1 ea TOP BID [facility] Last Admin: 06/05/17 09:14 Dose: 1 ea Metoprolol Succinate (Toprol Xl) 200 mg PO Q12H [facility] Last Admin: 06/05/17 05:16 Dose: 200 mg Morphine Sulfate (Morphine Extended Release Tab) 30 mg PO Q12H [facility] Last Admin: 06/05/17 02:51 Dose: Not Given Nitroglycerin (Nitro-Bid 2% Oint) 1 ea TOP Q6 [facility] Last Admin: 06/05/17 09:11 Dose: Not Given Oxycodone HCl (Oxycodone Immediate Release Tab) 30 mg PO Q6H PRN PRN Reason: Pain, severe (8-10) Last Admin: 06/05/17 08:06 Dose: 30 mg Ramipril (Altace) 5 mg PO DAILY [facility] Last Admin: 06/05/17 09:12 Dose: 5 mg - Labs Labs: 06/03/17 05:15 06/04/17 04:47 Assessment and Plan (1) Dyspnea Status: Acute (2) CAD (coronary artery disease) Status: Chronic (3) Diabetes Status: Chronic (4) Dyslipidemia Status: Chronic (5) Essential hypertension Status: Chronic (6) Peripheral vascular disease Status: Chronic - Assessment and Plan (Free Text) Plan: increase clonidine to 0.2mg q12 re check labs will titrate bp meds as tolerated. given diastolic dysfunction would benefit from hr around 60
[2017-06-05 13:34] LABS: ALB/GLOB RATIO 1.1 (1.0-2.1); BILIRUBIN,TOTAL 0.3 mg/dl (0.2-1.3); CALCIUM 8.9 mg/dL (8.4-10.2); POTASSIUM 4.7 MMOL/L (3.6-5.0); TOTAL PROTEIN 7.2 G/DL (6.3-8.2)
--- NOTE | 2017-06-05 15:29 | CP.PCM.PN ---
Subjective - Date & Time of Evaluation Date of Evaluation: 06/05/17 Time of Evaluation: 13:00 - Subjective Subjective: Podiatry Progress Note - Dr. Macdonald 51 y/o female seen at bedside today for right foot ulceration. Dressing remains clean, dry and intact to R foot. Pt denies any acute events overnight and says she is not having any pain in the feet or legs at this time. Pt denies F/C/N/V/ CP/SOB since her admission to the hospital. Objective - Vital Signs/Intake and Output Vital Signs (last 24 hours): Temp Pulse Resp BP Pulse Ox 98.6 F 68 20 133/86 100 06/05/17 15:25 06/05/17 15:25 06/05/17 15:25 06/05/17 15:25 06/05/17 15:25 - Medications Medications: Current Medications Albuterol/Ipratropium (Duoneb 3 Mg/0.5 Mg (3 Ml) Ud) 3 ml INH RQ6 [facility] Last Admin: 06/05/17 13:45 Dose: 3 ml Alprazolam (Xanax) 0.25 mg PO BID PRN PRN Reason: Anxiety Stop: 06/08/17 11:37 Last Admin: 06/05/17 11:18 Dose: 0.25 mg Amlodipine Besylate (Norvasc) 5 mg PO DAILY [facility] Last Admin: 06/05/17 09:12 Dose: 5 mg Aspirin (Ecotrin) 81 mg PO DAILY [facility] Last Admin: 06/05/17 09:10 Dose: 81 mg Atorvastatin Calcium (Lipitor) 40 mg PO HS [facility] Last Admin: 06/04/17 21:42 Dose: 40 mg Clonidine HCl (Catapres) 0.2 mg PO Q12 [facility] Clopidogrel Bisulfate (Plavix) 75 mg PO DAILY [facility] Last Admin: 06/05/17 09:13 Dose: 75 mg Cyanocobalamin (Vitamin B12 1000 Mcg Tab) 1,000 mcg PO DAILY [facility] Last Admin: 06/05/17 09:10 Dose: 1,000 mcg Ferrous Sulfate (Feosol) 325 mg PO DAILY [facility] Last Admin: 06/05/17 09:11 Dose: 325 mg Heparin Sodium (Porcine) (Heparin) 5,000 units SC Q12 [facility] PRN Reason: Protocol Last Admin: 06/05/17 09:14 Dose: Not Given Insulin Detemir (Levemir) 80 units SC HS [facility] Last Admin: 06/04/17 21:40 Dose: 80 units Insulin Human Lispro (Humalog) 30 units SC TIDAC [facility] Last Admin: 06/05/17 12:08 Dose: 30 units Insulin Human Lispro (Humalog) 0 units SC ACHS [facility] PRN Reason: Protocol Last Admin: 06/05/17 12:09 Dose: 4 units Isosorbide Mononitrate (Imdur) 60 mg PO DAILY [facility] Last Admin: 06/05/17 09:10 Dose: 60 mg Lactic Acid (Lac-Hydrin 12% Cream (140 G)) 1 ea TOP BID [facility] Last Admin: 06/05/17 09:14 Dose: 1 ea Metoprolol Succinate (Toprol Xl) 200 mg PO Q12H [facility] Last Admin: 06/05/17 14:21 Dose: 200 mg Morphine Sulfate (Morphine Extended Release Tab) 30 mg PO Q12H [facility] Last Admin: 06/05/17 14:19 Dose: 30 mg Nitroglycerin (Nitro-Bid 2% Oint) 1 ea TOP Q6 [facility] Last Admin: 06/05/17 09:11 Dose: Not Given Oxycodone HCl (Oxycodone Immediate Release Tab) 30 mg PO Q6H PRN PRN Reason: Pain, severe (8-10) Last Admin: 06/05/17 08:06 Dose: 30 mg Ramipril (Altace) 5 mg PO DAILY [facility] Last Admin: 06/05/17 09:12 Dose: 5 mg - Labs Labs: 06/03/17 05:15 06/05/17 12:20 - Constitutional Appears: Well, Non-toxic, No Acute Distress - Extremities Exam Additional comments: Dressing remains clean, dry and intact to R foot No edema, erythema or cellulitic changes noted to either lower extremity Surgical shoe to R foot on at time of visit - Neurological Exam Neurological Exam: Alert, Awake, Oriented x3 - Psychiatric Exam Psychiatric exam: Normal Affect, Normal Mood Assessment and Plan - Assessment and Plan (Free Text) Assessment: 51 y/o female with right foot ulceration secondary to diabetes mellitus Plan: Pt seen and evaluated at bedside this morning Discussed plan with attending Dr. Macdonald Labs and vitals reviewed- pt is afebrile. Per Dr. Macdonald, dressing to remain intact to R foot; to be changed weekly in office on Mondays by Dr. Macdonald Patient is stable from podiatry standpoint, will F/U with Dr. Macdonald in [facility] wound care center upon discharge Podiatry to continue following while patient is in house
[2017-06-05] MEDS: Sodium Chloride 0.45% 1,000 ML IV SCH (16:50)
[2017-06-05] MEDS: Insulin Detemir 100 Units/ml Inj SC SCH (21:51)
[2017-06-06] MEDS: Albuterol-Ipratrop 3 mg / 0.5 (3 ml) UD INH SCH ×4 (01:04→19:21)
--- NOTE | 2017-06-06 01:21 | PN ---
DATE: 06/04/2017 SUBJECTIVE: She was not in any cardiopulmonary distress. PHYSICAL EXAMINATION: VITAL SIGNS: Blood pressure was 118/67, temperature 98.0, respiratory rate 18, and pulse 77. HEENT: Pupils equal and reactive to light. Normal-appearing mucosa of the conjunctivae, oropharynx, and nasal membrane mucosa. NECK: Supple. No JVD, No carotid bruit. No lymph node. No thyromegaly. CHEST AND LUNGS: Bilateral symmetrical expansion. Good air exchange. No rales. No rhonchi. CARDIOVASCULAR SYSTEM: PMI not localized. S1 and S2. No additional sounds. ABDOMEN: Normoactive bowel sounds. No tenderness. No organomegaly. No masses. EXTREMITIES: No cyanosis. No clubbing. No edema. CENTRAL NERVOUS SYSTEM: Alert, awake, oriented x2. No neurological deficits could be appreciated. ASSESSMENT: 1. Chest pain. Stress test was done on 06/04 and we are following the results. 2. Diastolic congestive heart failure. 3. Type 2 diabetes mellitus. 4. Hypertension. 5. Degenerative spine disease with chronic back pain. PLAN: Follow the results of the stress test. Continue IV fluid. Monitor electrolytes. Continue current medications. Kendra Nevarez MD
--- NOTE | 2017-06-06 01:31 | PN ---
DATE: 06/05/2017 SUBJECTIVE: The patient is seen today, 06/05/2017. She is not in any cardiopulmonary distress. Serum creatinine is 1.3. Stress test revealed fixed perfusion defect indicating of a scar, but there is no sign of active ischemia. PHYSICAL EXAMINATION: VITAL SIGNS: Blood pressure 112/67, temperature 98, respiratory rate 20 and pulse 75. HEENT: Pupils equal, reactive to light. Normal-appearing mucosa of the conjunctivae, oropharynx and nasal membrane mucosa. NECK: Supple. No JVD. No carotid bruit. No lymph nodes. No thyromegaly. CHEST AND LUNGS: Bilateral symmetrical expansion. Good air exchange. No rales, no rhonchi. CARDIOVASCULAR: PMI not localized. S1 and S2. No additional sounds. ABDOMEN: Normoactive bowel sounds. No tenderness. No organomegaly. No masses. EXTREMITIES: No cyanosis, no clubbing, no edema. CENTRAL NERVOUS SYSTEM: Alert, awake, oriented x3. No neurological deficits could be appreciated. ASSESSMENT: 1. Diastolic congestive heart failure. 2. Type 2 diabetes mellitus. 3. Elevation of serum creatinine to 1.3. 4. Hypertension. PLAN: Continue IV fluid and monitor renal function. The patient was started on Altace 5 mg daily and the Vasotec 20 mg daily was stopped by Cardiology. Corby MD Roque
[2017-06-06] MEDS: Morphine 30 mg SR Tab PO SCH ×3 (03:00→14:56)
[2017-06-06] MEDS: Metoprolol Succinate 100 mg XL Tab PO SCH ×2 (03:01→17:37)
[2017-06-06] MEDS: oxyCODONE 10 mg Immediate Release Tab PO PRN ×3 (03:09→21:00)
[2017-06-06] MEDS: Nitroglycerin 2% Ointment Foilpak UD TOP SCH ×4 (04:00→21:06)
[2017-06-06] MEDS: Insulin Lispro (humaLOG) 100 Units/ml Inj SC SCH ×6 (06:44→17:36)
[2017-06-06] MEDS: Sodium Chloride 0.45% 1,000 ML IV SCH ×2 (06:46→18:53)
[2017-06-06 07:32] LABS: HEMATOCRIT 33.6 % (34.0-47.0); MEAN CELL VOLUME 80.5 fl (81.0-99.0); MEAN CORPUSCULAR HEMOGLOBIN 26.5 pg (27.0-31.0); MEAN CORPUSCULAR HGB CONC 32.9 g/dL (33.0-37.0); RED CELL DISTRIBUTION WIDTH 17.6 % (11.5-14.5); WHITE BLOOD COUNT 6.2 K/uL (4.8-10.8)
[2017-06-06 07:42] LABS: ALB/GLOB RATIO 1.1 (1.0-2.1); ALKALINE PHOSPHATASE 104 U/L (38-126); ALT/SGPT 23 U/L (9-52); AST/SGOT 18 U/L (14-36); BILIRUBIN,TOTAL 0.3 mg/dl (0.2-1.3); BLOOD UREA NITROGEN 39 mg/dl (7-17); CALCIUM 9.1 mg/dL (8.4-10.2); CARBON DIOXIDE 30 mmol/L (22-30); CHLORIDE 100 mmol/L (98-107); GFR AFRICAN-AMERICAN > 60; GLUCOSE,RANDOM 277 mg/dL (65-105); MAGNESIUM 2.1 MG/DL (1.6-2.3); POTASSIUM 4.6 MMOL/L (3.6-5.0); SODIUM 139 mmol/l (132-148); TOTAL PROTEIN 7.6 G/DL (6.3-8.2)
[2017-06-06] MEDS: Ammonium Lactate 12% Cream (140 g) TOP SCH ×2 (08:22→17:40)
[2017-06-07] MEDS: Insulin Detemir 100 Units/ml Inj SC SCH (01:15)
--- NOTE | 2017-06-07 01:28 | PN ---
DATE: 06/06/2017 SUBJECTIVE: She is less short of breath, currently on IV fluids due to the prerenal azotemia and serum creatinine went down to 1.1 today. PHYSICAL EXAMINATION: VITAL SIGNS: Blood pressure is 153/78, temperature 97.6, respiratory rate 20, and pulse 70. HEENT: Pupils are equal and reactive to light. Normal-appearing mucosa of the conjunctivae, oropharynx, and nasal membrane mucosa. NECK: Supple. No JVD. No carotid bruit. No lymph node. No thyromegaly. CHEST AND LUNGS: Bilateral symmetrical expansion. Good air exchange. No rales. No rhonchi. CARDIOVASCULAR SYSTEM: PMI not localized. S1 and S2. No additional sounds. ABDOMEN: Normoactive bowel sounds. No tenderness. No organomegaly. No masses. EXTREMITIES: No cyanosis. No clubbing. No edema. CENTRAL NERVOUS SYSTEM: Alert, awake, oriented x3. No neurological deficit could be appreciated. ASSESSMENT: 1. Diastolic congestive heart failure that has responded to diuretics. 2. Type 2 diabetes mellitus, uncontrolled. 3. Right scapular swelling. 4. Prerenal azotemia that is responding IV fluids. 5. Hypertension. PLAN: We will discontinue IV fluids. Continue current HELGA inhibitor and diuretic was stopped at this point. Patient will be discharged to follow up with her primary care physician. Kendra Nevarez MD
[2017-06-07] MEDS: Albuterol-Ipratrop 3 mg / 0.5 (3 ml) UD INH SCH ×3 (01:30→13:55)
[2017-06-07] MEDS: Insulin Lispro (humaLOG) 100 Units/ml Inj SC SCH ×4 (01:55→12:00)
[2017-06-07] MEDS: Nitroglycerin 2% Ointment Foilpak UD TOP SCH ×2 (03:56→11:47)
[2017-06-07] MEDS: Morphine 30 mg SR Tab PO SCH ×3 (03:56→14:59)
[2017-06-07] MEDS: Metoprolol Succinate 100 mg XL Tab PO SCH ×3 (03:58→16:03)
[2017-06-07 05:36] LABS: BLOOD UREA NITROGEN 34 mg/dl (7-17); CALCIUM 9.2 mg/dL (8.4-10.2); CARBON DIOXIDE 29 mmol/L (22-30); CHLORIDE 99 mmol/L (98-107); GFR AFRICAN-AMERICAN > 60; GLUCOSE,RANDOM 335 mg/dL (65-105); POTASSIUM 4.3 MMOL/L (3.6-5.0); SODIUM 137 mmol/l (132-148)
[2017-06-07] MEDS: Sodium Chloride 0.45% 1,000 ML IV SCH (08:44)
[2017-06-07] MEDS: oxyCODONE 10 mg Immediate Release Tab PO PRN (08:47)
[2017-06-07] MEDS ORDERED: Lidocaine 5% Patch TD SCH (09:00)
[2017-06-07] MEDS: Ammonium Lactate 12% Cream (140 g) TOP SCH (09:00)
[2017-06-07 12:11] VITALS: BP 136/69; RESP 20; TEMP 97.9; O2SAT 95
--- NOTE | 2017-06-07 13:48 | CT ---
PROCEDURE: CT Chest without contrast HISTORY: Right scapular area swollen COMPARISON: 05/31/2017 TECHNIQUE: Contiguous axial images were obtained through the chest without intravenous contrast enhancement. Sagittal and coronal reconstructions were performed. Radiation dose (DLP): 663.11 mGy-cm. This CT exam was performed using one or more of the following dose reduction techniques: Automated exposure control, adjustment of the mA and/or kV according to patient size, and/or use of iterative reconstruction technique. FINDINGS: LUNGS: Clear lungs. Visualized airway clear. MEDIASTINUM: Unremarkable thoracic aorta. No aneurysm. Normal sized heart. Main pulmonary artery unremarkable. No vascular congestion. No lymphadenopathy. PLEURA: No pleural fluid. No pneumothorax. BONES: No fracture. No destructive lesion. UPPER ABDOMEN: Grossly unremarkable. OTHER FINDINGS: None. IMPRESSION: Unremarkable non-contrast enhanced CT of the chest.No significant interval change compared to the prior examination(s).
--- NOTE | 2017-06-07 15:29 | CP.PCM.PN ---
Subjective - Date & Time of Evaluation Date of Evaluation: 06/07/17 Time of Evaluation: 15:29 - Subjective Subjective: 51 y/o female seen at bedside this afternoon with attending Dr. Macdonald regarding right plantar midfoot ulceration. Pt states she has kept her foot dressing intact since last Wednesday at her wound care appointment. Pt states she is feeling better and breathing better since admission. Pt is going home today and knows to follow up in a week at the wound care center. Pt denies F/C/N/V/CP/SOB. Objective - Vital Signs/Intake and Output Vital Signs (last 24 hours): Temp Pulse Resp BP Pulse Ox 97.9 F 73 20 136/69 95 06/07/17 12:10 06/07/17 12:10 06/07/17 12:10 06/07/17 12:10 06/07/17 12:10 - Medications Medications: Current Medications Albuterol/Ipratropium (Duoneb 3 Mg/0.5 Mg (3 Ml) Ud) 3 ml INH RQ6 [facility] Last Admin: 06/07/17 13:55 Dose: Not Given Alprazolam (Xanax) 0.25 mg PO BID PRN PRN Reason: Anxiety Stop: 06/08/17 11:37 Last Admin: 06/06/17 09:15 Dose: 0.25 mg Amlodipine Besylate (Norvasc) 5 mg PO DAILY [facility] Last Admin: 06/07/17 08:42 Dose: 5 mg Aspirin (Ecotrin) 81 mg PO DAILY [facility] Last Admin: 06/07/17 08:42 Dose: 81 mg Atorvastatin Calcium (Lipitor) 40 mg PO HS [facility] Last Admin: 06/06/17 21:05 Dose: 40 mg Clonidine HCl (Catapres) 0.2 mg PO Q12 [facility] Last Admin: 06/07/17 08:41 Dose: 0.2 mg Clopidogrel Bisulfate (Plavix) 75 mg PO DAILY [facility] Last Admin: 06/07/17 08:40 Dose: 75 mg Cyanocobalamin (Vitamin B12 1000 Mcg Tab) 1,000 mcg PO DAILY [facility] Last Admin: 06/06/17 08:20 Dose: 1,000 mcg Ferrous Sulfate (Feosol) 325 mg PO DAILY [facility] Last Admin: 06/07/17 08:44 Dose: 325 mg Heparin Sodium (Porcine) (Heparin) 5,000 units SC Q12 [facility] PRN Reason: Protocol Last Admin: 06/07/17 08:55 Dose: Not Given Sodium Chloride (Sodium Chloride 0.45%) 1,000 mls @ 80 mls/hr IV .[id number] [facility] Stop: 06/07/17 18:36 Last Admin: 06/07/17 08:44 Dose: 80 mls/hr Insulin Detemir (Levemir) 80 units SC HS [facility] Last Admin: 06/07/17 01:15 Dose: 80 units Insulin Human Lispro (Humalog) 30 units SC TIDAC [facility] Last Admin: 06/07/17 08:44 Dose: 30 units Insulin Human Lispro (Humalog) 0 units SC ACHS [facility] PRN Reason: Protocol Last Admin: 06/07/17 06:29 Dose: 8 units Isosorbide Mononitrate (Imdur) 60 mg PO DAILY [facility] Last Admin: 06/07/17 08:41 Dose: 60 mg Lactic Acid (Lac-Hydrin 12% Cream (140 G)) 1 ea TOP BID [facility] Last Admin: 06/06/17 17:40 Dose: 1 ea Lidocaine (Lidoderm) 1 ea TD DAILY [facility] Last Admin: 06/07/17 08:42 Dose: 1 ea Metoprolol Succinate (Toprol Xl) 200 mg PO Q12H [facility] Last Admin: 06/07/17 03:58 Dose: 200 mg Morphine Sulfate (Morphine Extended Release Tab) 30 mg PO Q12H [facility] Last Admin: 06/07/17 14:59 Dose: Not Given Nitroglycerin (Nitro-Bid 2% Oint) 1 ea TOP Q6 [facility] Last Admin: 06/07/17 11:47 Dose: Not Given Oxycodone HCl (Oxycodone Immediate Release Tab) 30 mg PO Q6H PRN PRN Reason: Pain, severe (8-10) Last Admin: 06/07/17 08:47 Dose: 30 mg Ramipril (Altace) 5 mg PO DAILY [facility] Last Admin: 06/07/17 08:40 Dose: 5 mg - Labs Labs: 06/06/17 06:10 06/07/17 04:20 - Constitutional Appears: Well, Non-toxic, No Acute Distress - Extremities Exam Additional comments: Right lower extremity focused examination: Vasc: DP and PT pulses palpable 2/4. Temperature gradient warm to cool. No pedal edema noted. 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 1.2cm x 1.0cm x 0.1cm ulceration noted to plantar midfoot. Wound margins are smooth and uniform, and exhibit no signs of hyperkeratosis or maceration. Wound base is 90 % fibrotic and 10% granular. No active drainage, no malodor, no tunnelling or undermining, no probe to bone. Neuro: Protective sensation grossly diminished ortho: No tenderness noted to palpation of plantar ulceration. 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 - Neurological Exam Neurological Exam: Alert, Awake, Oriented x3 - Psychiatric Exam Psychiatric exam: Normal Affect, Normal Mood Assessment and Plan - Assessment and Plan (Free Text) Assessment: 51 y/o female with plantar midfoot ulceration secondary to diabetes mellitus Plan: Pt seen and evaluated with attending Dr. Macdonald Labs and vitals reviewed- afebrile, NNL Cleansed wound to right foot with sterile saline Dressed R foot with xeroform, ABD and DSD Pt to follow up with Dr. Macdonald in wound care center next Wednesday following discharge
[2017-06-07 16:03] VITALS: PULSE 73
== END 2017-06-07 16:00 | disposition home or self-care (01) | DRG 292 ==
LOC: H.ER 18:06 → H.ERHOLD 21:15 → H.TEL 06-01 16:35 → OBSVTOIN 06-02 00:50
PROVIDERS: ADMIT Internal Medicine; ATTEND Internal Medicine
DX: I11.0 Hypertensive heart disease with heart failure (principal); L97.419 Non-pressure chronic ulcer of right heel and midfoot with unspecified severity; E11.610 Type 2 diabetes mellitus with diabetic neuropathic arthropathy; E11.51 Type 2 diabetes mellitus with diabetic peripheral angiopathy without gangrene; L97.409 Non-pressure chronic ulcer of unspecified heel and midfoot with unspecified severity; I50.43 Acute on chronic combined systolic (congestive) and diastolic (congestive) heart failure; J98.01 Acute bronchospasm; E11.621 Type 2 diabetes mellitus with foot ulcer; E11.65 Type 2 diabetes mellitus with hyperglycemia; E66.9 Obesity, unspecified; Z68.36 Body mass index [BMI] 36.0-36.9, adult; E78.00 Pure hypercholesterolemia, unspecified; E78.5 Hyperlipidemia, unspecified; G89.29 Other chronic pain; M54.9 Dorsalgia, unspecified; I25.10 Atherosclerotic heart disease of native coronary artery without angina pectoris; I25.2 Old myocardial infarction; L97.519 Non-pressure chronic ulcer of other part of right foot with unspecified severity; M14.679 Charcot's joint, unspecified ankle and foot; Z79.02 Long term (current) use of antithrombotics/antiplatelets; Z79.4 Long term (current) use of insulin; Z79.82 Long term (current) use of aspirin; Z79.899 Other long term (current) drug therapy; Z86.73 Personal history of transient ischemic attack (TIA), and cerebral infarction without residual deficits; Z87.891 Personal history of nicotine dependence; Z90.49 Acquired absence of other specified parts of digestive tract; Z95.5 Presence of coronary angioplasty implant and graft; D64.9 Anemia, unspecified; F41.9 Anxiety disorder, unspecified; M19.90 Unspecified osteoarthritis, unspecified site; R79.1 Abnormal coagulation profile; R07.9 Chest pain, unspecified; R79.89 Other specified abnormal findings of blood chemistry

== ENCOUNTER 2017-09-17 01:14 | Inpatient (IN) | payer BC, OTHER ==
[2017-09-17 01:14] VITALS: BMI 37.4
--- NOTE | 2017-09-17 02:37 | ED PDOC ---
Lower Extremity Pain/Injury Time Seen by Provider: 09/17/17 01:41 Chief Complaint (Nursing): Shortness Of Breath Chief Complaint (Provider): Lower Extremity Problem History Per: Patient History/Exam Limitations: no limitations Onset/Duration Of Symptoms: Days Current Symptoms Are (Timing): Still Present Additional Complaint(s): 51 year old female presents to ED with complaints of bilateral lower extremity pain and SOB and has a past medical history of CHF, HTN, DM, peripheral vascular disease, and osteomyelitis. Notes right leg is very painful and that he is experiencing more swelling and redness than normal. (-) fever, chills, nausea, vomiting, diarrhea, or chest pain. Notes that oxycodone used for pain management has provided no improvement in pain. PCP: Dr. Doshi Form Builder Helper: Dr. Macdonald - Risk Factors DVT Risk Factors: Pos: CHF Past Medical History Reviewed: Historical Data, Nursing Documentation, Vital Signs Vital Signs: Last Vital Signs Temp 97.8 F 09/17/17 01:22 Pulse 90 09/17/17 01:22 Resp 19 09/17/17 01:22 BP 205/103 H 09/17/17 01:22 Pulse Ox 91 L 09/17/17 01:22 - Medical History PMH: Anemia, Anxiety, Arthritis, Back Problems (herniated disks), CAD, CVA, Diabetes, HTN, Hypercholesterolemia, Hyperlipidemia, Peripheral Edema Denies: CHF, COPD, HIV, Hypothyroidism, Chronic Kidney Disease, Rheumatoid Arthritis Other PMH: osteomyelitis, left charcot foot - Surgical History Surgical History: Appendectomy, Coronary Stent Other surgeries: right metatarsal amputation - Family History Family History: States: Unknown Family Hx - Social History Current smoker - smoking cessation education provided: No Ex-Smoker (has not smoked in the last 12 months): No Alcohol: None Drugs: Denies - Immunization History Hx Tetanus Toxoid Vaccination: No Hx Influenza Vaccination: No Hx Pneumococcal Vaccination: No - Home Medications Home Medications: Ambulatory Orders Medication Instructions Recorded Ferrous Sulfate [Feosol] 65 mg PO TID 02/23/14 Clopidogrel [Plavix] 75 mg PO DAILY 06/19/14 Atorvastatin Calcium [Lipitor] 40 mg PO HS 10/22/14 Metoprolol Succinate [Toprol XL] 200 mg PO Q12H 05/28/15 oxyCODONE [oxyCODONE Immediate 30 mg PO Q6H PRN 05/28/15 Release Tab] Morphine Sulfate [Morphine Sulfate 30 mg PO Q12H 03/27/16 ER] amLODIPine [Norvasc] 5 mg PO DAILY 07/23/16 Aspirin [Ecotrin] 81 mg PO DAILY tabec 07/25/16 ALPRAZolam [Xanax] 0.25 mg PO BID PRN 11/11/16 Cyanocobalamin [Vitamin B12 1000 1,000 mcg PO DAILY 11/11/16 mcg Tab] Isosorbide Mononitrate [Imdur] 60 mg PO DAILY 11/11/16 Insulin Detemir [Levemir] 80 units SC HS 05/31/17 Insulin Lispro [Humalog (Insulin 30 unit SQ TID 05/31/17 Lispro)] Ramipril [Altace] 5 mg PO DAILY #30 cap 06/07/17 cloNIDine [Catapres] 0.2 mg PO Q12 #60 tab 06/07/17 - Allergies Allergies/Adverse Reactions: Allergies Allergy/AdvReac Type Severity Reaction Status Date / Time morphine AdvReac NAUSEA Verified 12/18/16 17:11 Wells Criteria for PE - Wells Criteria for Pulmonary Embolism Heart Rate >100: No Hemoptysis: No Total Score: 0 Review of Systems ROS Statement: Except As Marked, All Systems Reviewed And Found Negative Constitutional: Negative for: Fever, Chills Cardiovascular: Negative for: Chest Pain Respiratory: Positive for: Shortness of Breath Gastrointestinal: Negative for: Nausea, Vomiting, Diarrhea Musculoskeletal: Positive for: Leg Pain (bilateral lower leg pain with swelling and erythema) Physical Exam - Reviewed Nursing Documentation Reviewed: Yes Vital Signs Reviewed: Yes - Physical Exam Appears: Positive for: Non-toxic, No Acute Distress Skin: Positive for: Normal Color, Warm, Dry Eye Exam: Positive for: Normal appearance Neck: Positive for: Normal, Painless ROM, Supple Cardiovascular/Chest: Positive for: Regular Rate, Rhythm. Negative for: Murmur Respiratory: Positive for: Normal Breath Sounds. Negative for: Respiratory Distress Extremity: Positive for: Deformity (right metatarsal amuputation), Swelling (2+ edema to RLE, 1+ edema to LLE with erythema and no drainage or purulence to either lower extremity), Other ((-) Evon's sign) Neurologic/Psych: Positive for: Alert, Oriented. Negative for: Motor/Sensory Deficits - Laboratory Results Result Diagrams: 09/17/17 02:44 09/17/17 02:44 - ECG O2 Sat by Pulse Oximetry: 91 (RA) Pulse Ox Interpretation: Abnormal Medical Decision Making Medical Decision Makin Initial impression: lower extremity pain in setting of known PVD, charcot foot, cellulitis and osteomyelitis, and SOB Initial plan: * Labs * Trop I * UPreg * UDip * CXR * UA 0212 Called podiatry resident - Dr. Vora will consult. [id number] Labs reviewed: elevated pro-BNP CXR: cardiomegaly, bilateral pulmunovascular congestion Patient was evaluated by Dr. Vora (podiatry resident), who determined there was no active infectious process. Dr. Vora discussed case with Dr. Macdonald ( patient's benzene washer). Patient will be admitted for CHF: OBS TELE under Dr. Malagon. Lasix and nitro paste ordered. Scribe Attestation: Documented by Brittney Suarez acting as a scribe for Zander Bello MD. Scribe Attestation: All medical record entries made by the Scribe were at my direction and personally dictated by me. I have reviewed the chart and agree that the record accurately reflects my personal performance of the history, physical exam, medical decision making, and the department course for this patient. I have also personally directed, reviewed, and agree with the discharge instructions and disposition. Disposition - Patient ED Disposition Is Patient to be Admitted: Yes - Disposition Disposition Time: 03:47 Condition: FAIR - Pt Status Changed To: Hospital Disposition Of: Observation (OBS TELE)
[2017-09-17 02:50] LABS: BASO # 0.1 K/uL (0.0-0.2); BASO % 0.8 % (0.0-2.0); EOS # 0.1 K/uL (0.0-0.7); EOS % 1.1 % (0.0-4.0); HEMOGLOBIN 10.9 g/dL (12.0-16.0); LYMPH % 11.2 % (20.0-40.0); MEAN CELL VOLUME 81.2 fl (81.0-99.0); MEAN CORPUSCULAR HEMOGLOBIN 26.4 pg (27.0-31.0); MEAN CORPUSCULAR HGB CONC 32.5 g/dL (33.0-37.0); MEAN PLATELET VOLUME 7.5 fl (7.2-11.7); MONO # 0.5 K/uL (0.0-0.8); MONO % 5.5 % (0.0-10.0); NEUT # 7.4 K/uL (1.8-7.0); NEUT % 81.4 % (50.0-75.0); NRBC % 0.4 % (0.0-0.0); RBC 4.13 Mil/uL (3.80-5.20); RED CELL DISTRIBUTION WIDTH 17.6 % (11.5-14.5); WHITE BLOOD COUNT 9.1 K/uL (4.8-10.8)
[2017-09-17 03:00] LABS: ALBUMIN 3.6 g/dL (3.5-5.0); ALT/SGPT 23 U/L (9-52); AST/SGOT 22 U/L (14-36); BLOOD UREA NITROGEN 19 mg/dl (7-17); CALCIUM 9.1 mg/dL (8.4-10.2); GFR AFRICAN-AMERICAN > 60; GFR NON-AFRICAN AMERICAN > 60
[2017-09-17 03:12] LABS: B-TYPE NATRIURETIC PEPTIDE 973 pg/ml (0-900)
[2017-09-17 03:15] LABS: SQUAMOUS EPITHIAL 1 /hpf (0-5); URINE BACTERIA RARE (<OCC); URINE BILIRUBIN NEGATIVE (NEGATIVE); URINE BLOOD SMALL (NEGATIVE); URINE CLARITY CLEAR (Clear); URINE COLOR STRAW (YELLOW); URINE GLUCOSE (UA) >=500 mg/dL (Normal); URINE LEUKOCYTE ESTERASE NEG Leu/uL (Negative); URINE NITRATE NEGATIVE (NEGATIVE); URINE PROTEIN >=500 mg/dL (NEGATIVE); URINE UROBILINOGEN 0.2-1.0 mg/dL (0.2-1.0)
--- NOTE | 2017-09-17 03:33 | CP.PCM.CON ---
History of Present Illness - History of Present Illness History of Present Illness: Consult note: Dr. Macdonald 51 year old female patient with PMHx DM, HTN, hypercholesterolemia, and CHF was seen at bedside in ED for right lower extremity pain, redness and swelling. Patient reports that the swelling and redness comes and goes on daily basis but this time around it lasted for a longer period of time. Patient reports that she also feels pain on her right calf today. Patient reports that she came to the hospital because she was having shortness of breath which is what led her decision to come to the ED this morning. Patient reports that she has a hx of charcot on the left foot and has an ulcer on both the feet for which she follows up with Dr. Macdonald in the wound care center. Patient states that she wants to have a charcot reconstruction surgery on her left foot and wants to be admitted. Patient reports that she took pain medication around 6 PM yesterday but it did not help her at all. Patient reports that she also sees a pain management doctor for chronic pain. Patient denies of having any recent F/N/V/C/ CP/headache or dizziness. Denies of any other pedal complains at this time. PMHx: DM, HTN, hypercholesterolemia, CHF PSHx: Appendectomy, right foot TMA w/Achilles lengthening, right leg stents, coronary stent placement x2 SHx: denies ETOH, former tobacco use (1PPD for 15 years - stopped 3 years ago), no illicit drug use Allergies: morphine Review of Systems - Constitutional Constitutional: As Per HPI Past Patient History - Infectious Disease Hx of Infectious Diseases: None - Tetanus Immunizations Tetanus Immunization: Unknown - Past Medical History & Family History Past Medical History?: Yes - Past Social History Alcohol: None Drugs: Denies - CARDIAC Hx Congestive Heart Failure: No Hx Hypercholesterolemia: Yes Hx Hypertension: Yes Hx Peripheral Edema: Yes - PULMONARY Hx Chronic Obstructive Pulmonary Disease (COPD): No - NEUROLOGICAL Hx Neurological Disorder: No HX Cerebrovascular Accident: Yes (2009) - HEENT Hx HEENT Problems: No - RENAL Hx Chronic Kidney Disease: No - ENDOCRINE/METABOLIC Hx Hypothyroidism: No - HEMATOLOGICAL/ONCOLOGICAL Hx Anemia: Yes Hx Human Immunodeficiency Virus (HIV): No - INTEGUMENTARY Hx Dermatological Problems: No - MUSCULOSKELETAL/RHEUMATOLOGICAL Hx Arthritis: Yes Hx Rheumatoid Arthritis: No - GASTROINTESTINAL Hx Gastrointestinal Disorders: No - GENITOURINARY/GYNECOLOGICAL Hx Genitourinary Disorders: No - PSYCHIATRIC Hx Anxiety: Yes - SURGICAL HISTORY Hx Appendectomy: Yes Hx Coronary Stent: Yes - ANESTHESIA Hx Anesthesia: Yes Hx Anesthesia Reactions: Yes (CAN'T BREATH-ADMITTED TO ICU) Hx Malignant Hyperthermia: No Meds Allergies/Adverse Reactions: Allergies Allergy/AdvReac Type Severity Reaction Status Date / Time morphine AdvReac NAUSEA Verified 12/18/16 17:11 Physical Exam - Constitutional Appears: Well, Non-toxic, No Acute Distress - Extremities Exam Extremities exam: Positive for: calf tenderness Additional comments: Bilateral lower extremity focused examination: VASC: DP and PT pulses palpable 1/4. Temperature gradient warm to cool from proximal to distal on the left and warm to warm on the right. 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 Approx. 1.0cm x 1.0cm x 0.1cm ulceration noted to plantar midfoot on the right and fully roofed pre-ulcerative lesion with superficial skin shedding on the planter medial left foot measuring approx. 0.3 cm x 0.3 cm on the left foot. Wound margins on the right are smooth and uniform, and exhibit no signs of hyperkeratosis or maceration. Wound base is 80% grannular and 20% fibrotic. No active drainage, no malodor, no purulence, no fluctuance, no tunnelling or undermining, no probe to bone, no kristine-wound erythema - erythema extends from knee joint to just proximal to the ankle joint along the course of dermopathy. No clinical suspicion of active infection NEURO: Protective sensation grossly diminished ORTHO: No tenderness noted to palpation of plantar ulceration. Prior forefoot amputation noted at level of distal metatarsals, Homman's + on the right, pain on palpation of the calf on the right LE, no palpable cord noted - Neurological Exam Neurological exam: Alert, Oriented x3 - Psychiatric Exam Psychiatric exam: Normal Affect, Normal Mood Results - Vital Signs Recent Vital Signs: Last Vital Signs Temp 97.8 F 09/17/17 01:22 Pulse 90 09/17/17 01:22 Resp 19 09/17/17 01:22 BP 205/103 H 09/17/17 01:22 Pulse Ox 91 L 09/17/17 02:42 - Labs Result Diagrams: 09/17/17 02:44 09/17/17 02:44 Labs: Laboratory Results - last 24 hr 09/17/17 09/17/17 09/17/17 02:44 02:44 02:44 WBC 9.1 RBC 4.13 Hgb 10.9 L Hct 33.5 L MCV 81.2 MCH 26.4 L MCHC 32.5 L RDW 17.6 H Plt Count 258 MPV 7.5 Neut % (Auto) 81.4 H Lymph % (Auto) 11.2 L [place] % (Auto) 5.5 Eos % (Auto) 1.1 Baso % (Auto) 0.8 Neut # (Auto) 7.4 H Lymph # (Auto) 1.0 [place] # (Auto) 0.5 Eos # (Auto) 0.1 Baso # (Auto) 0.1 D-Dimer, Quantitative Sodium 136 Potassium 4.2 Chloride 98 Carbon Dioxide 27 Anion Gap 15 BUN 19 H Creatinine 0.8 Est GFR ( Amer) > 60 Est GFR (Non-Af Amer) > 60 Random Glucose 224 H Lactic Acid 1.6 Calcium 9.1 Total Bilirubin 0.7 AST 22 ALT 23 Alkaline Phosphatase 88 Troponin I < 0.0120 NT-Pro-B Natriuret Pep 973 H Total Protein 7.1 Albumin 3.6 Globulin 3.5 Albumin/Globulin Ratio 1.0 Urine Color Urine Clarity Urine pH Ur Specific Gleason Urine Protein Urine Glucose (UA) Urine Ketones Urine Blood Urine Nitrate Urine Bilirubin Urine Urobilinogen Ur Leukocyte Esterase Urine RBC (Auto) Urine Microscopic WBC Ur Squamous Epith Cells Urine Bacteria Hyaline Casts 09/17/17 09/17/17 02:44 03:03 WBC RBC Hgb Hct MCV MCH MCHC RDW Plt Count MPV Neut % (Auto) Lymph % (Auto) [place] % (Auto) Eos % (Auto) Baso % (Auto) Neut # (Auto) Lymph # (Auto) [place] # (Auto) Eos # (Auto) Baso # (Auto) D-Dimer, Quantitative 190 Sodium Potassium Chloride Carbon Dioxide Anion Gap BUN Creatinine Est GFR ( Amer) Est GFR (Non-Af Amer) Random Glucose Lactic Acid Calcium Total Bilirubin AST ALT Alkaline Phosphatase Troponin I NT-Pro-B Natriuret Pep Total Protein Albumin Globulin Albumin/Globulin Ratio Urine Color Straw Urine Clarity Clear Urine pH 7.0 Ur Specific Gleason 1.008 Urine Protein >=500 Urine Glucose (UA) >=500 Urine Ketones Negative Urine Blood Small Urine Nitrate Negative Urine Bilirubin Negative Urine Urobilinogen 0.2-1.0 Ur Leukocyte Esterase Neg Urine RBC (Auto) 3 Urine Microscopic WBC < 1 Ur Squamous Epith Cells 1 Urine Bacteria Rare Hyaline Casts 3-5 H Assessment & Plan - Assessment and Plan (Free Text) Assessment: 51 year old female patient with PMHx DM, HTN, hypercholesterolemia, and CHF was evaluated for right lower extremity pain, redness and swelling - cellulitis vs. DVT Plan: Patient seen and evaluated at bedside in ED Discussed patient in details with attending Dr. Macdonald Labs, vitals and charts reviewed - vital signs stable, afebrile, no leukocytosis - D-Dimer: 190 (wnl) - No suspicion of active DVT X-rays of the tib-fib reviewed: - increase in soft tissue density with no signs of soft tissue emphysema, no acute fractures or dislocations noted No suspicion of active infection - wounds are clinically stable Edema on the legs secondary to CHF?; erythema reduces upon elevation of the extremity Wounds cleaned using saline and dressing applied using bacitracin, DSD Patient to remain in surgical shoe Augmentin 875 mg PO t.i.d x 10 days Patient educated to follow up with Dr. Macdonald at a wound care center Patient demonstrated verbal understanding Patient is stable from podiatry standpoint Thank you for the podiatry consult and allowing to take part in patient care - Date & Time Date: 09/17/17 Time: 03:00
[2017-09-17] MEDS ORDERED: HYDROmorphone 0.5 mg/0.5 ml ISec IVP STA (03:40)
[2017-09-17] MEDS ORDERED: Piperacillin/Tazobact 3.375 GM in Sodium Chloride 0.9% 100 ML IV STA (03:48)
[2017-09-17] MEDS ORDERED: Nitroglycerin 2% Ointment Foilpak UD TOP STA (03:54)
[2017-09-17] MEDS ORDERED: Piperacillin/Tazobact 3.375 gm Inj IVPB ONE (03:57)
[2017-09-17] MEDS ORDERED: Nitroglycerin 2% Ointment Foilpak UD TOP ONE (04:00)
[2017-09-17] MEDS ORDERED: oxyCODONE 10 mg Immediate Release Tab PO PRN (08:17)
--- NOTE | 2017-09-17 09:17 | RAD ---
HISTORY: SOB COMPARISON: Chest radiograph dated 06/02/2017. FINDINGS: LUNGS: Prominence of the pulmonary vasculature may be secondary to AP technique and/or pulmonary vascular congestion. PLEURA: No significant pleural effusion identified, no pneumothorax apparent. CARDIOVASCULAR: Cardiomediastinal silhouette stably enlarged. OSSEOUS STRUCTURES: Unchanged. VISUALIZED UPPER ABDOMEN: Normal. OTHER FINDINGS: None. IMPRESSION: Prominence of the pulmonary vasculature may be secondary to AP technique and/or pulmonary vascular congestion. No focal consolidation or pleural effusion.
--- NOTE | 2017-09-17 09:19 | RAD ---
PROCEDURE: Radiographs of the right tibia and fibula. HISTORY: pain/swelling COMPARISON: None available. TECHNIQUE: Frontal and lateral views obtained. FINDINGS: BONES: No fracture or destructive lesion. JOINT SPACES: Forefoot degenerative changes. OTHER FINDINGS: Partially imaged superficial femoral/popliteal artery stent. Achilles enthesophyte. Inferior plantar calcaneal spur. Atherosclerotic arterial calcifications. Generalized soft tissue swelling/edema. IMPRESSION: No demonstrated fracture or dislocation.
[2017-09-17] MEDS ORDERED: Insulin Regular 100 units/ml ONE (09:20)
[2017-09-17] MEDS: Insulin Lispro (humaLOG) 100 Units/ml Inj SC SCH ×3 (09:54→17:10)
[2017-09-17] MEDS: Metoprolol Succinate 100 mg XL Tab PO SCH ×2 (09:57→21:27)
--- NOTE | 2017-09-17 12:15 | HP ---
HISTORY OF PRESENT ILLNESS: Ms. Jones is a 51-year-old female who was admitted via the Emergency Room because of swelling of both lower extremities and shortness of breath for the past several days prior to presentation. She is under the care of podiatry physician and has had right transmetatarsal amputation in the past, but also has a Charcot's foot, left lower extremity with recurrent swelling. PAST MEDICAL HISTORY: She has a past medical history of congestive heart failure, hypertension, diabetes mellitus and severe peripheral vascular disease with recurrent osteomyelitis. FAMILY HISTORY: Non-revealing. SOCIAL HISTORY: She quit smoking 5 years ago. Does not drink and does not use drugs. She lives at home with her daughter. REVIEW OF SYSTEMS: Review of systems is essentially remarkable for swelling of legs with pain and unsteadiness of gait. PHYSICAL EXAMINATION: GENERAL: The patient is alert and oriented, appears to be still in some distress from shortness of breath. VITAL SIGNS: Blood pressure of 205/103, pulse of 90, respiratory rate is 19. She is febrile and O2 saturation is 91% on room air. SKIN: Shows fair turgor. HEENT: Pupils are equal and reactive to light and accommodation. Mouth shows fair hygiene. JVP flat. LUNGS: Fair aeration bilaterally with scattered bilateral rales. HEART: S1 and S2. GASTROINTESTINAL: Abdomen is soft and nontender. No organomegaly. EXTREMITIES: 2+ pitting pedal edema with right transmetatarsal amputation and left Charcot's foot. CENTRAL NERVOUS SYSTEM: Exam grossly intact. LABORATORY DATA: Remarkable for WBC of 9.1, hemoglobin of 10.9, and platelet count of 258,000. Sodium of 136, potassium of 4.2, BUN of 19, creatinine of 0.8, and proBNP of 973. DIAGNOSTIC DATA: Chest x-ray: Cardiomegaly with pulmonary congestion. EKG pending. IMPRESSION AND PLAN: Acute congestive heart failure, hypertension, poorly controlled; diabetes mellitus, poorly controlled; right transmetatarsal amputation with erythema of right lower extremity, and Charcot's left lower extremity. Poor compliance to medication and diet. PLAN: Diuretic therapy. Cardiology evaluation. Advised compliance to medication and diet. Would admit to hospital for further therapy. Mario Malagon MD [facility] # [id number]
--- NOTE | 2017-09-17 18:04 | CARD ---
APPROVED REPORT EKG Measurement Heart [id number] <Conclusion> Normal sinus rhythm Possible Left atrial enlargement Septal infarct, age undetermined Abnormal ECG
[2017-09-17] MEDS: Insulin Detemir 100 Units/ml Inj SC SCH (23:39)
[2017-09-18 06:17] LABS: HEMOGLOBIN 10.3 g/dL (12.0-16.0); MEAN CELL VOLUME 80.8 fl (81.0-99.0); MEAN CORPUSCULAR HEMOGLOBIN 26.7 pg (27.0-31.0); RBC 3.87 Mil/uL (3.80-5.20); RED CELL DISTRIBUTION WIDTH 17.8 % (11.5-14.5); WHITE BLOOD COUNT 5.8 K/uL (4.8-10.8)
[2017-09-18 06:42] LABS: CALCIUM 8.6 mg/dL (8.4-10.2)
[2017-09-18] MEDS: Enoxaparin 40 mg Syringe SC SCH (09:00)
[2017-09-18] MEDS: Insulin Lispro (humaLOG) 100 Units/ml Inj SC SCH ×3 (09:12→17:10)
[2017-09-18] MEDS: Metoprolol Succinate 100 mg XL Tab PO SCH ×2 (09:45→22:24)
--- NOTE | 2017-09-18 10:50 | RAD ---
HISTORY: chf COMPARISON: No prior. TECHNIQUE: Chest PA and lateral FINDINGS: LUNGS: The central pulmonary vasculature appears less congested. PLEURA: No significant pleural effusion identified. No pneumothorax apparent. CARDIOVASCULAR: Heart remains mildly enlarged. OSSEOUS STRUCTURES: No significant abnormalities. VISUALIZED UPPER ABDOMEN: Normal. OTHER FINDINGS: None. IMPRESSION: Slightly improved previously noted mild pulmonary vascular congestion.
--- NOTE | 2017-09-18 11:56 | CP.PCM.PN ---
Subjective - Date & Time of Evaluation Date of Evaluation: 09/18/17 Time of Evaluation: 11:57 - Subjective Subjective: SOB IMPROVED NO CHEST PAINS STILL ASKING FOR PAIN MEDS C/O FEET PAIN Objective - Vital Signs/Intake and Output Vital Signs (last 24 hours): Temp Pulse Resp BP Pulse Ox 97.5 F L 76 20 174/78 H 95 09/18/17 08:14 09/18/17 09:45 09/18/17 08:14 09/18/17 09:49 09/18/17 08:14 - Medications Medications: Current Medications Alprazolam (Xanax) 0.25 mg PO BID PRN PRN Reason: Anxiety Stop: 09/24/17 08:18 Last Admin: 09/18/17 02:51 Dose: 0.25 mg Amlodipine Besylate (Norvasc) 5 mg PO DAILY [facility] Last Admin: 09/18/17 09:11 Dose: 5 mg Aspirin (Ecotrin) 81 mg PO DAILY [facility] Last Admin: 09/18/17 09:12 Dose: 81 mg Atorvastatin Calcium (Lipitor) 40 mg PO HS [facility] Last Admin: 09/17/17 21:28 Dose: 40 mg Clonidine HCl (Catapres) 0.2 mg PO Q12 [facility] Last Admin: 09/18/17 09:44 Dose: 0.2 mg Clopidogrel Bisulfate (Plavix) 75 mg PO DAILY [facility] Last Admin: 09/18/17 09:11 Dose: 75 mg Cyanocobalamin (Vitamin B12 1000 Mcg Tab) 1,000 mcg PO DAILY [facility] Last Admin: 09/17/17 10:01 Dose: 1,000 mcg Enalapril Maleate (Vasotec) 20 mg PO BID [facility] Last Admin: 09/18/17 09:46 Dose: 20 mg Enoxaparin Sodium (Lovenox) 40 mg SC DAILY [facility] PRN Reason: Protocol Last Admin: 09/18/17 09:00 Dose: Not Given Furosemide (Lasix) 40 mg IVP DAILY [facility] Last Admin: 09/17/17 17:09 Dose: 40 mg Insulin Detemir (Levemir) 80 units SC HS [facility] Last Admin: 09/17/17 23:39 Dose: 80 units Insulin Human Lispro (Humalog) 30 units SC TID [facility] Last Admin: 09/18/17 09:12 Dose: 30 units Isosorbide Mononitrate (Imdur) 60 mg PO DAILY [facility] Last Admin: 09/18/17 09:43 Dose: 60 mg Metoprolol Succinate (Toprol Xl) 200 mg PO Q12H [facility] Last Admin: 09/18/17 09:45 Dose: 200 mg Oxycodone HCl (Oxycontin Extended Release Tab) 30 mg PO Q12 [facility] Stop: 09/21/17 21:01 - Labs Labs: 09/18/17 05:21 09/18/17 05:21 - Constitutional Appears: Chronically Ill - Head Exam Head Exam: ATRAUMATIC, NORMAL INSPECTION, NORMOCEPHALIC - Eye Exam Eye Exam: EOMI, Normal appearance, PERRL Pupil Exam: NORMAL ACCOMODATION, PERRL - ENT Exam ENT Exam: Mucous Membranes Moist, Normal Exam - Neck Exam Neck Exam: Full ROM, Normal Inspection. absent: Lymphadenopathy - Respiratory Exam Respiratory Exam: Prolonged Expiratory Phase, Rales, NORMAL BREATHING PATTERN - Cardiovascular Exam Cardiovascular Exam: REGULAR RHYTHM, +S1, +S2. absent: Murmur - GI/Abdominal Exam GI & Abdominal Exam: Soft, Normal Bowel Sounds. absent: Tenderness - Rectal Exam Rectal Exam: NORMAL INSPECTION - Extremities Exam Extremities Exam: Full ROM, Normal Capillary Refill, Pedal Edema, Tenderness. absent: Joint Swelling - Back Exam Back Exam: NORMAL INSPECTION - Neurological Exam Neurological Exam: Alert, Awake, CN II-XII Intact, Normal Gait, Oriented x3 - Psychiatric Exam Psychiatric exam: Normal Affect, Normal Mood - Skin Skin Exam: Dry, Intact, Normal Color, Warm Assessment and Plan - Assessment and Plan (Free Text) Assessment: CHF PEDAL EDEMA CELLULITIS OF LEGS S/P R TRANSMET AMPUTATION CHARCOT L FOOT PVD CHRONIC PAIN Plan: CONTINUE PRESENT RX PODIATRY FOLLOW UP DISCHARGE IN AM IF STABLE
[2017-09-18] MEDS: Piperacillin/Tazobact 3.375 GM in Sodium Chloride 0.9% 100 ML IVPB SCH ×2 (13:24→22:24)
--- NOTE | 2017-09-18 14:15 | CP.PCM.CON ---
History of Present Illness - History of Present Illness History of Present Illness: This 51-year-old female has had multiple hospitalizations at this institution's and visits to the emergency room. She is a long-standing diabetic for over 17-18 years as well as a hypertensive and came into the hospital complaining of difficulty in breathing and couple of episodes of orthopnea. She has had persistent pedal edema and she admits to having eaten salty food within the last 3-4 days. She is not a smoker. She gives history of having had a myocardial infarction in the remote past. No coronary intervention has been carried out. She has severe peripheral vascular disease and partial amputation of right foot and a Charcot' s ankle on the left side. She denies any palpitations or substernal chest pain. A nuclear stress test in May of last year did not show any evidence of ischemic myocardium. An echocardiogram done in May of last showed a left ventricular systolic function in the range of 50% with evidence of diastolic dysfunction of left ventricle. Her proBNP levels are borderline. She indicates significant relief of her dyspnea after having received Lasix and having diuresed. Physical examination shows a middle aged pleasant female who was able to lie slightly propped up in bed and carry on a conversation. She indicated she was not able to do this yesterday prior to her arrival in the hospital. Her heart rate was 78 bpm regular and her blood pressure in the left upper extremity was 130/70 mmHg. Her jugular venous pressure was not elevated. There was pitting edema over both lower extremities. Pedal pulses are not palpable. There were no carotid bruits. The apex was not palpable the first and second heart sounds were normal. There was a brief apical systolic murmur. There was no S3 gallop there were no rales. Her abdomen was soft liver and spleen were not palpable her electro-cardiogram shows sinus rhythm with nonspecific ST-T changes and poor progression of R wave from V1 to V2 probably due to poor placement of chest leads. Review of her earlier electrocardiograms from end of last year show presence of R wave in V2. Again her echocardiogram shows borderline left ventricular contractility with depressed left ventricle diastolic compliance.. Review off her myocardial perfusion study shows no evidence of potentially ischemic myocardium. An old myocardial scar was detected. Her left ventricular ejection fraction was estimated at 46%. Her lab data shows an abrupt increase in her BUN/creatinine consequent to her aggressive diuresis. Her urinalysis shows large quantities of proteinuria. Her electrolytes were normal her troponin was normal and her proBNP which was 973 pg per DL at admission has dropped to 655 pg per DL following diuresis. Impression: Congestive cardiac failure, left ventricular and diastolic an acute on chronic. Diabetes mellitus with severe peripheral vascular disease and neuropathy with Charcot's joint left ankle and chronic kidney disease. I have explained to the patient the need for daily weights to monitor her fluid balance. She will require long-term loop diuretics. Past Patient History - Infectious Disease Hx of Infectious Diseases: None - Tetanus Immunizations Tetanus Immunization: Unknown - Past Medical History & Family History Past Medical History?: Yes - Past Social History Smoking Status: Former Smoker - CARDIAC Hx Cardiac Disorders: Yes Hx Congestive Heart Failure: Yes Hx Hypercholesterolemia: Yes Hx Hypertension: Yes - PULMONARY Hx Respiratory Disorders: Yes - NEUROLOGICAL Hx Neurological Disorder: No - HEENT Hx HEENT Problems: No - RENAL Hx Chronic Kidney Disease: No - ENDOCRINE/METABOLIC Hx Endocrine Disorders: Yes Hx Diabetes Mellitus Type 2: Yes - HEMATOLOGICAL/ONCOLOGICAL Hx Blood Disorders: No Hx AIDS: No Hx Human Immunodeficiency Virus (HIV): No - INTEGUMENTARY Hx Dermatological Problems: No - MUSCULOSKELETAL/RHEUMATOLOGICAL Hx Musculoskeletal Disorders: Yes Hx Falls: No Hx Osteomyelitis: Yes - GASTROINTESTINAL Hx Gastrointestinal Disorders: No - GENITOURINARY/GYNECOLOGICAL Hx Genitourinary Disorders: No - PSYCHIATRIC Hx Psychophysiologic Disorder: Yes Hx Anxiety: Yes Hx Depression: Yes Hx Substance Use: No - SURGICAL HISTORY Hx Surgeries: Yes Hx Appendectomy: Yes Hx Coronary Stent: Yes - ANESTHESIA Hx Anesthesia: Yes Hx Anesthesia Reactions: Yes (CAN'T BREATH-ADMITTED TO ICU) Hx Malignant Hyperthermia: No Meds Allergies/Adverse Reactions: Allergies Allergy/AdvReac Type Severity Reaction Status Date / Time morphine AdvReac NAUSEA Verified 12/18/16 17:11 - Medications Medications: Current Medications Alprazolam (Xanax) 0.25 mg PO BID PRN PRN Reason: Anxiety Stop: 09/24/17 08:18 Last Admin: 09/18/17 02:51 Dose: 0.25 mg Amlodipine Besylate (Norvasc) 5 mg PO DAILY [facility] Last Admin: 09/18/17 09:11 Dose: 5 mg Aspirin (Ecotrin) 81 mg PO DAILY [facility] Last Admin: 09/18/17 09:12 Dose: 81 mg Atorvastatin Calcium (Lipitor) [address] [facility] Last Admin: 09/17/17 21:28 Dose: 40 mg Cholecalciferol (Vitamin D) 2,000 intlu PO DAILY@1700 [facility] Clonidine HCl (Catapres) 0.2 mg PO Q12 [facility] Last Admin: 09/18/17 09:44 Dose: 0.2 mg Clopidogrel Bisulfate (Plavix) 75 mg PO DAILY [facility] Last Admin: 09/18/17 09:11 Dose: 75 mg Cyanocobalamin (Vitamin B12 1000 Mcg Tab) 1,000 mcg PO DAILY [facility] Last Admin: 09/18/17 13:24 Dose: 1,000 mcg Docusate Sodium (Colace) 100 mg PO BID [facility] Enalapril Maleate (Vasotec) 20 mg PO BID [facility] Last Admin: 09/18/17 09:46 Dose: 20 mg Enoxaparin Sodium (Lovenox) 40 mg SC DAILY [facility] PRN Reason: Protocol Last Admin: 09/18/17 09:00 Dose: Not Given Furosemide (Lasix) 40 mg IVP DAILY [facility] Last Admin: 09/17/17 17:09 Dose: 40 mg Piperacillin Sod/Tazobactam (Sod 3.375 gm/ Sodium Chloride) 100 mls @ 100 mls/ hr IVPB Q12 [facility] PRN Reason: Protocol Last Admin: 09/18/17 13:24 Dose: 100 mls/hr Insulin Detemir (Levemir) [address] [facility] Last Admin: 09/17/17 23:39 Dose: 80 units Insulin Human Lispro (Humalog) 30 units SC TID [facility] Last Admin: 09/18/17 13:26 Dose: 30 units Metoprolol Succinate (Toprol Xl) 200 mg PO Q12H [facility] Last Admin: 09/18/17 09:45 Dose: 200 mg Oxycodone HCl (Oxycontin Extended Release Tab) 30 mg PO Q12 [facility] Stop: 09/21/17 21:01 Results - Vital Signs Recent Vital Signs: Last Vital Signs Temp 97.6 F 09/18/17 12:34 Pulse 70 09/18/17 12:34 Resp 20 09/18/17 12:34 BP 159/87 H 09/18/17 12:34 Pulse Ox 96 09/18/17 12:34 - Labs Result Diagrams: 09/18/17 05:21 03/03/18 05:21 Labs: Laboratory Results - last 24 hr 09/17/17 09/17/17 09/18/17 17:02 20:58 05:20 WBC RBC Hgb Hct MCV MCH MCHC RDW Plt Count Sodium Potassium Chloride Carbon Dioxide Anion Gap BUN Creatinine Est GFR ( Amer) Est GFR (Non-Af Amer) POC Glucose (mg/dL) 189 H 180 H 273 H Random Glucose Calcium NT-Pro-B Natriuret Pep 09/18/17 09/18/17 09/18/17 05:21 05:21 11:30 WBC 5.8 RBC 3.87 Hgb 10.3 L Hct 31.3 L MCV 80.8 L MCH 26.7 L MCHC 33.0 RDW 17.8 H Plt Count 238 Sodium 139 Potassium 4.5 Chloride 97 L Carbon Dioxide 31 H Anion Gap 16 BUN 28 H Creatinine 1.4 H Est GFR ( Amer) 48 Est GFR (Non-Af Amer) 40 POC Glucose (mg/dL) 146 H Random Glucose 255 H Calcium 8.6 NT-Pro-B Natriuret Pep 655
[2017-09-18] MEDS ORDERED: Cholecalciferol 1,000 INTLU TAB PO SCH (17:00)
[2017-09-18] MEDS: oxyCODONE 10 mg Immediate Release Tab PO PRN (17:05)
[2017-09-18] MEDS: Cholecalciferol 1,000 INTLU TAB PO SCH (17:09)
--- NOTE | 2017-09-18 19:18 | CP.PCM.PN ---
Subjective - Date & Time of Evaluation Date of Evaluation: 09/18/17 Time of Evaluation: 13:00 - Subjective Subjective: Podiatry Progress Note - Dr. Macdonald 51 year old female patinet PMHx DM, HTN, hypercholesterolemia, CHF seen and evaluated at bedside for RLE pain, redness, and swelling. Patient OOB in chair with legs in dependent position, NAD. No acute events overnight. Patient denies any pain to her feet today. Dressing to bilateral feet clean/dry/intact. Patient reports SOB has improved. Denies N/V/F/D/C/calf pain. Objective - Vital Signs/Intake and Output Vital Signs (last 24 hours): Temp Pulse Resp BP Pulse Ox 98.0 F 76 17 171/69 H 97 09/18/17 16:37 09/18/17 16:37 09/18/17 16:37 09/18/17 16:37 09/18/17 16:37 Intake and Output: 09/18/17 09/19/17 18:59 06:59 Intake Total 1100 Output Total 1 Balance 1099 - Medications Medications: Current Medications Alprazolam (Xanax) 0.25 mg PO BID PRN PRN Reason: Anxiety Stop: 09/24/17 08:18 Last Admin: 09/18/17 02:51 Dose: 0.25 mg Amlodipine Besylate (Norvasc) 5 mg PO DAILY [facility] Last Admin: 09/18/17 09:11 Dose: 5 mg Aspirin (Ecotrin) 81 mg PO DAILY [facility] Last Admin: 09/18/17 09:12 Dose: 81 mg Atorvastatin Calcium (Lipitor) 40 mg PO HS [facility] Last Admin: 09/17/17 21:28 Dose: 40 mg Cholecalciferol (Vitamin D) 2,000 intlu PO DAILY@1700 [facility] Last Admin: 09/18/17 17:09 Dose: 2,000 intlu Clonidine HCl (Catapres) 0.2 mg PO Q12 [facility] Last Admin: 09/18/17 09:44 Dose: 0.2 mg Clopidogrel Bisulfate (Plavix) 75 mg PO DAILY [facility] Last Admin: 09/18/17 09:11 Dose: 75 mg Cyanocobalamin (Vitamin B12 1000 Mcg Tab) 1,000 mcg PO DAILY [facility] Last Admin: 09/18/17 13:24 Dose: 1,000 mcg Docusate Sodium (Colace) 100 mg PO BID [facility] Last Admin: 09/18/17 17:08 Dose: 100 mg Enalapril Maleate (Vasotec) 20 mg PO BID [facility] Last Admin: 09/18/17 17:10 Dose: 20 mg Enoxaparin Sodium (Lovenox) 40 mg SC DAILY [facility] PRN Reason: Protocol Last Admin: 09/18/17 09:00 Dose: Not Given Furosemide (Lasix) 40 mg IVP DAILY [facility] Last Admin: 09/17/17 17:09 Dose: 40 mg Piperacillin Sod/Tazobactam (Sod 3.375 gm/ Sodium Chloride) 100 mls @ 100 mls/ hr IVPB Q12 [facility] PRN Reason: Protocol Last Admin: 09/18/17 13:24 Dose: 100 mls/hr Insulin Detemir (Levemir) 80 units SC HS [facility] Last Admin: 09/17/17 23:39 Dose: 80 units Insulin Human Lispro (Humalog) 30 units SC TID [facility] Last Admin: 09/18/17 17:10 Dose: Not Given Metoprolol Succinate (Toprol Xl) 200 mg PO Q12H [facility] Last Admin: 09/18/17 09:45 Dose: 200 mg Oxycodone HCl (Oxycontin Extended Release Tab) 30 mg PO Q12 [facility] Stop: 09/21/17 21:01 Oxycodone HCl (Oxycodone Immediate Release Tab) 30 mg PO Q6 PRN PRN Reason: Pain, severe (8-10) Last Admin: 09/18/17 17:05 Dose: 30 mg - Labs Labs: 09/18/17 05:21 09/18/17 05:21 - Constitutional Appears: Well, Non-toxic, No Acute Distress - Extremities Exam Additional comments: Bilateral lower extremity focused examination: VASC: DP and PT pulses palpable 1/4. Temperature gradient warm to cool from proximal to distal on the left and warm to warm on the right. 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 Approx. 1.0cm x 1.0cm x 0.1cm ulceration noted to plantar midfoot on the right and fully roofed pre-ulcerative lesion with superficial skin shedding on the planter medial left foot measuring approx. 0.3 cm x 0.3 cm on the left foot. Wound margins on the right are smooth and uniform, and exhibit no signs of hyperkeratosis or maceration. Wound base is 80% grannular and 20% fibrotic. No active drainage, no malodor, no purulence, no fluctuance, no tunnelling or undermining, no probe to bone, no kristine-wound erythema - erythema extends from knee joint to just proximal to the ankle joint along the course of dermopathy. No clinical suspicion of active infection NEURO: Protective sensation grossly diminished ORTHO: No tenderness noted to palpation of plantar ulceration. Prior forefoot amputation noted at level of distal metatarsals, Homman's + on the right, pain on palpation of the calf on the right LE, no palpable cord noted - Neurological Exam Neurological Exam: Alert, Awake, Oriented x3 - Psychiatric Exam Psychiatric exam: Normal Affect, Normal Mood Assessment and Plan - Assessment and Plan (Free Text) Assessment: 51 year old female patient with PMHx DM, HTN, hypercholesterolemia, and CHF with 1) bilateral plantar ulcerations secondary to diabetic neuropathy, 2) RLE redness and swelling 2/2 CHF, diabetic dermopathy Plan: Patient seen and evaluated at bedside Discussed with attending Dr. Macdonald Afebrile, WBC 5.8 - D-Dimer: 190 (wnl) - No suspicion of active DVT X-rays of the tib-fib reviewed: - increase in soft tissue density with no signs of soft tissue emphysema, no acute fractures or dislocations noted No suspicion of active infection - wounds are clinically stable Edema on the legs secondary to CHF; erythema likely from diabetic dermoathy Wounds cleaned using saline and DSD applied Patient to remain FWB in surgical shoe b/l Patient educated to follow up with Dr. Macdonald 1 week upon discharge Podiatry will continue to follow while patient in house
[2017-09-18] MEDS: oxyCODONE 10 mg ER Tab (oxyCONTIN) PO SCH (22:25)
[2017-09-18] MEDS: Insulin Detemir 100 Units/ml Inj SC SCH (22:27)
[2017-09-19] MEDS: oxyCODONE 10 mg Immediate Release Tab PO PRN ×2 (08:19→16:44)
[2017-09-19] MEDS: Metoprolol Succinate 100 mg XL Tab PO SCH ×2 (08:23→21:34)
[2017-09-19] MEDS: Insulin Lispro (humaLOG) 100 Units/ml Inj SC SCH ×3 (08:24→16:36)
[2017-09-19] MEDS: Enoxaparin 40 mg Syringe SC SCH ×2 (08:24→16:38)
[2017-09-19] MEDS: Piperacillin/Tazobact 3.375 GM in Sodium Chloride 0.9% 100 ML IVPB SCH ×2 (08:30→21:11)
--- NOTE | 2017-09-19 08:32 | CP.PCM.PN ---
Subjective - Date & Time of Evaluation Date of Evaluation: 09/19/17 Time of Evaluation: 08:32 - Subjective Subjective: Podiatry Progress Note - Dr. Macdonald 51 year old female patinet PMHx DM, HTN, hypercholesterolemia, CHF seen and evaluated at bedside for RLE pain, redness, and swelling. Patient OOB in chair with legs in dependent position with dressings intact and surgical shoes present bilaterally, NAD. Patient was supposed to be dc today however started to experience wheezing. Offers no complaints to her foot ulcers today. Endorses a new wound on the front of her left leg after hitting her leg against her chair last night. Denies N/V/F/D/C/SOB/calf pain. Objective - Vital Signs/Intake and Output Vital Signs (last 24 hours): Temp Pulse Resp BP Pulse Ox 97.7 F 74 20 173/85 H 95 09/19/17 08:17 09/19/17 08:25 09/19/17 08:17 09/19/17 08:25 09/19/17 08:17 - Medications Medications: Current Medications Alprazolam (Xanax) 0.25 mg PO BID PRN PRN Reason: Anxiety Stop: 09/24/17 08:18 Last Admin: 09/18/17 02:51 Dose: 0.25 mg Amlodipine Besylate (Norvasc) 5 mg PO DAILY [facility] Last Admin: 09/19/17 08:24 Dose: 5 mg Aspirin (Ecotrin) 81 mg PO DAILY [facility] Last Admin: 09/19/17 08:24 Dose: 81 mg Atorvastatin Calcium (Lipitor) 40 mg PO HS [facility] Last Admin: 09/19/17 00:46 Dose: 40 mg Cholecalciferol (Vitamin D) 2,000 intlu PO DAILY@1700 [facility] Last Admin: 09/18/17 17:09 Dose: 2,000 intlu Clonidine HCl (Catapres) 0.2 mg PO Q12 [facility] Last Admin: 09/19/17 08:25 Dose: 0.2 mg Clopidogrel Bisulfate (Plavix) 75 mg PO DAILY [facility] Last Admin: 09/19/17 08:24 Dose: 75 mg Cyanocobalamin (Vitamin B12 1000 Mcg Tab) 1,000 mcg PO DAILY [facility] Last Admin: 09/19/17 08:22 Dose: 1,000 mcg Docusate Sodium (Colace) 100 mg PO BID [facility] Last Admin: 09/19/17 08:25 Dose: 100 mg Enalapril Maleate (Vasotec) 20 mg PO BID [facility] Last Admin: 09/19/17 08:22 Dose: 20 mg Enoxaparin Sodium (Lovenox) 40 mg SC DAILY [facility] PRN Reason: Protocol Last Admin: 09/19/17 08:24 Dose: 40 mg Furosemide (Lasix) 40 mg IVP DAILY [facility] Last Admin: 09/19/17 08:25 Dose: 40 mg Piperacillin Sod/Tazobactam (Sod 3.375 gm/ Sodium Chloride) 100 mls @ 100 mls/ hr IVPB Q12 [facility] PRN Reason: Protocol Last Admin: 09/19/17 08:30 Dose: 100 mls/hr Insulin Detemir (Levemir) 80 units SC HS [facility] Last Admin: 09/18/17 22:27 Dose: 80 units Insulin Human Lispro (Humalog) 30 units SC TID [facility] Last Admin: 09/19/17 08:24 Dose: 30 units Metoprolol Succinate (Toprol Xl) 200 mg PO Q12H [facility] Last Admin: 09/19/17 08:23 Dose: 200 mg Oxycodone HCl (Oxycontin Extended Release Tab) 30 mg PO Q12 [facility] Stop: 09/21/17 21:01 Last Admin: 09/18/17 22:25 Dose: 30 mg Oxycodone HCl (Oxycodone Immediate Release Tab) 30 mg PO Q6 PRN PRN Reason: Pain, severe (8-10) Last Admin: 09/19/17 08:19 Dose: 30 mg - Labs Labs: 09/18/17 05:21 09/18/17 05:21 - Constitutional Appears: Well, Non-toxic - Extremities Exam Additional comments: Bilateral lower extremity focused examination: VASC: DP and PT pulses palpable 1/4. Temperature gradient warm to cool from proximal to distal on the left and warm to warm on the right. Cap refill time: < 3 sec to all digits; +1 pitting edema noted at the distal medial leg bilaterally DERM: Diffuse diabetic dermopathy noted to right leg and ankle region, R>L. Approx. 1.0cm x 1.0cm x 0.1cm ulceration noted to plantar midfoot on the right and fully roofed pre-ulcerative lesion with superficial skin shedding on the planter medial left foot measuring approx. 0.3 cm x 0.3 cm on the left foot. Wound margins on the right are smooth and uniform, and exhibit no signs of hyperkeratosis or maceration. Wound base is 80% grannular and 20% fibrotic. No active drainage, no malodor, no purulence, no fluctuance, no tunnelling or undermining, no probe to bone, no kristine-wound erythema - erythema extends from knee joint to just proximal to the ankle joint along the course of dermopathy. No clinical suspicion of active infection. Skin erosion noted midshaft of left anterior tibia measuring approximately 1.3 x 0.6cm - noted to have a granular base and dried crusted blood periwound; no surrounding erythema noted; no drainage, no purulence, no fluctuance; no clinical suspicion of active infection NEURO: Protective sensation grossly diminished ORTHO: No tenderness noted to palpation of plantar ulceration. Prior forefoot amputation noted at level of distal metatarsals, Homman's + on the right, pain on palpation of the calf on the right LE, no palpable cord noted - Neurological Exam Neurological Exam: Alert, Awake, Oriented x3 - Psychiatric Exam Psychiatric exam: Normal Affect, Normal Mood Assessment and Plan - Assessment and Plan (Free Text) Assessment: 51 year old female patient with PMHx DM, HTN, hypercholesterolemia, and CHF with 1) bilateral plantar ulcerations secondary to diabetic neuropathy, 2) RLE redness and swelling 2/2 CHF, diabetic dermopathy 3) left leg abrasion, stable Plan: Patient seen and evaluated at bedside Discussed with attending Dr. Macdonald Afebrile D-Dimer: 190 (wnl) RLE venous duplex: negative for DVT X-rays of the tib-fib: increase in soft tissue density with no signs of soft tissue emphysema, no acute fractures or dislocations noted No suspicion of active infection - wounds are clinically stable Edema on the legs secondary to CHF; erythema likely from diabetic dermoathy Continue local wound care - betadine, DSD to plantar ulcerations; allevyn pad to left leg erosion Patient to remain FWB in surgical shoe b/l Patient educated to follow up with Dr. Macdonald 1 week upon discharge Per medicine, will wait at least 6 weeks prior to elective surgery Podiatry will continue to follow while patient in house
--- NOTE | 2017-09-19 09:12 | CP.PCM.PN ---
Subjective - Date & Time of Evaluation Date of Evaluation: 09/19/17 Time of Evaluation: 09:00 - Subjective Subjective: Diuresing well C/O wheezing Sinus rhythm at 68 BPM, reg BP 136/84 mm Hg No gallop No rales Bilat pedal oedema persists JVP flat Will check BUN/Creatinin and electrolytes Objective - Vital Signs/Intake and Output Vital Signs (last 24 hours): Temp Pulse Resp BP Pulse Ox 97.7 F 74 20 173/85 H 95 09/19/17 08:17 09/19/17 08:25 09/19/17 08:17 09/19/17 08:25 09/19/17 08:17 - Medications Medications: Current Medications Alprazolam (Xanax) 0.25 mg PO BID PRN PRN Reason: Anxiety Stop: 09/24/17 08:18 Last Admin: 09/18/17 02:51 Dose: 0.25 mg Amlodipine Besylate (Norvasc) 5 mg PO DAILY [facility] Last Admin: 09/19/17 08:24 Dose: 5 mg Aspirin (Ecotrin) 81 mg PO DAILY [facility] Last Admin: 09/19/17 08:24 Dose: 81 mg Atorvastatin Calcium (Lipitor) 40 mg PO HS [facility] Last Admin: 09/19/17 00:46 Dose: 40 mg Cholecalciferol (Vitamin D) 2,000 intlu PO DAILY@1700 [facility] Last Admin: 09/18/17 17:09 Dose: 2,000 intlu Clonidine HCl (Catapres) 0.2 mg PO Q12 [facility] Last Admin: 09/19/17 08:25 Dose: 0.2 mg Clopidogrel Bisulfate (Plavix) 75 mg PO DAILY [facility] Last Admin: 09/19/17 08:24 Dose: 75 mg Cyanocobalamin (Vitamin B12 1000 Mcg Tab) 1,000 mcg PO DAILY [facility] Last Admin: 09/19/17 08:22 Dose: 1,000 mcg Docusate Sodium (Colace) 100 mg PO BID [facility] Last Admin: 09/19/17 08:25 Dose: 100 mg Enalapril Maleate (Vasotec) 20 mg PO BID [facility] Last Admin: 09/19/17 08:22 Dose: 20 mg Enoxaparin Sodium (Lovenox) 40 mg SC DAILY [facility] PRN Reason: Protocol Last Admin: 09/19/17 08:24 Dose: 40 mg Furosemide (Lasix) 40 mg IVP DAILY [facility] Last Admin: 09/19/17 08:25 Dose: 40 mg Piperacillin Sod/Tazobactam (Sod 3.375 gm/ Sodium Chloride) 100 mls @ 100 mls/ hr IVPB Q12 [facility] PRN Reason: Protocol Last Admin: 09/19/17 08:30 Dose: 100 mls/hr Insulin Detemir (Levemir) 80 units SC HS [facility] Last Admin: 09/18/17 22:27 Dose: 80 units Insulin Human Lispro (Humalog) 30 units SC TID [facility] Last Admin: 09/19/17 08:24 Dose: 30 units Metoprolol Succinate (Toprol Xl) 200 mg PO Q12H [facility] Last Admin: 09/19/17 08:23 Dose: 200 mg Oxycodone HCl (Oxycontin Extended Release Tab) 30 mg PO Q12 [facility] Stop: 09/21/17 21:01 Last Admin: 09/18/17 22:25 Dose: 30 mg Oxycodone HCl (Oxycodone Immediate Release Tab) 30 mg PO Q6 PRN PRN Reason: Pain, severe (8-10) Last Admin: 09/19/17 08:19 Dose: 30 mg - Labs Labs: 09/18/17 05:21 09/18/17 05:21
--- NOTE | 2017-09-19 10:10 | CP.PCM.PN ---
Subjective - Date & Time of Evaluation Date of Evaluation: 09/19/17 Time of Evaluation: 10:11 - Subjective Subjective: C/O WHEEZING TODAY COUGH LESS NO CHEST PAIN Objective - Vital Signs/Intake and Output Vital Signs (last 24 hours): Temp Pulse Resp BP Pulse Ox 97.7 F 74 20 173/85 H 95 09/19/17 08:17 09/19/17 08:25 09/19/17 08:17 09/19/17 08:25 09/19/17 08:17 - Medications Medications: Current Medications Albuterol/Ipratropium (Duoneb 3 Mg/0.5 Mg (3 Ml) Ud) 3 ml INH RQ6 [facility] Alprazolam (Xanax) 0.25 mg PO BID PRN PRN Reason: Anxiety Stop: 09/24/17 08:18 Last Admin: 09/18/17 02:51 Dose: 0.25 mg Amlodipine Besylate (Norvasc) 5 mg PO DAILY [facility] Last Admin: 09/19/17 08:24 Dose: 5 mg Aspirin (Ecotrin) 81 mg PO DAILY [facility] Last Admin: 09/19/17 08:24 Dose: 81 mg Atorvastatin Calcium (Lipitor) 40 mg PO HS [facility] Last Admin: 09/19/17 00:46 Dose: 40 mg Cholecalciferol (Vitamin D) 2,000 intlu PO DAILY@1700 [facility] Last Admin: 09/18/17 17:09 Dose: 2,000 intlu Clonidine HCl (Catapres) 0.2 mg PO Q12 [facility] Last Admin: 09/19/17 08:25 Dose: 0.2 mg Clopidogrel Bisulfate (Plavix) 75 mg PO DAILY [facility] Last Admin: 09/19/17 08:24 Dose: 75 mg Cyanocobalamin (Vitamin B12 1000 Mcg Tab) 1,000 mcg PO DAILY [facility] Last Admin: 09/19/17 08:22 Dose: 1,000 mcg Docusate Sodium (Colace) 100 mg PO BID [facility] Last Admin: 09/19/17 08:25 Dose: 100 mg Enalapril Maleate (Vasotec) 20 mg PO BID [facility] Last Admin: 09/19/17 08:22 Dose: 20 mg Enoxaparin Sodium (Lovenox) 40 mg SC DAILY [facility] PRN Reason: Protocol Last Admin: 09/19/17 08:24 Dose: 40 mg Furosemide (Lasix) 40 mg IVP DAILY [facility] Last Admin: 09/19/17 08:25 Dose: 40 mg Piperacillin Sod/Tazobactam (Sod 3.375 gm/ Sodium Chloride) 100 mls @ 100 mls/ hr IVPB Q12 [facility] PRN Reason: Protocol Last Admin: 09/19/17 08:30 Dose: 100 mls/hr Insulin Detemir (Levemir) 80 units SC HS [facility] Last Admin: 09/18/17 22:27 Dose: 80 units Insulin Human Lispro (Humalog) 30 units SC TID [facility] Last Admin: 09/19/17 08:24 Dose: 30 units Metoprolol Succinate (Toprol Xl) 200 mg PO Q12H [facility] Last Admin: 09/19/17 08:23 Dose: 200 mg Oxycodone HCl (Oxycontin Extended Release Tab) 30 mg PO Q12 [facility] Stop: 09/21/17 21:01 Last Admin: 09/18/17 22:25 Dose: 30 mg Oxycodone HCl (Oxycodone Immediate Release Tab) 30 mg PO Q6 PRN PRN Reason: Pain, severe (8-10) Last Admin: 09/19/17 08:19 Dose: 30 mg - Labs Labs: 09/18/17 05:21 09/18/17 05:21 - Constitutional Appears: Chronically Ill - Head Exam Head Exam: ATRAUMATIC, NORMAL INSPECTION, NORMOCEPHALIC - Eye Exam Eye Exam: EOMI, Normal appearance, PERRL Pupil Exam: NORMAL ACCOMODATION, PERRL - ENT Exam ENT Exam: Mucous Membranes Moist, Normal Exam - Neck Exam Neck Exam: Full ROM, Normal Inspection. absent: Lymphadenopathy - Respiratory Exam Respiratory Exam: Decreased Breath Sounds, Prolonged Expiratory Phase, NORMAL BREATHING PATTERN - Cardiovascular Exam Cardiovascular Exam: REGULAR RHYTHM, +S1, +S2. absent: Murmur - GI/Abdominal Exam GI & Abdominal Exam: Soft, Normal Bowel Sounds. absent: Tenderness - Rectal Exam Rectal Exam: NORMAL INSPECTION - Extremities Exam Extremities Exam: Full ROM, Pedal Edema, Tenderness. absent: Joint Swelling - Back Exam Back Exam: NORMAL INSPECTION - Neurological Exam Neurological Exam: Alert, Awake, CN II-XII Intact, Normal Gait, Oriented x3 - Psychiatric Exam Psychiatric exam: Normal Affect, Normal Mood - Skin Skin Exam: Dry, Intact, Normal Color, Warm Assessment and Plan - Assessment and Plan (Free Text) Assessment: CHF BRONCHOSPASM CELLULITIS OF LEGS PEDAL EDEMA PVD ANEMIA Plan: CONTINUE PRESENT RX BRONCHODILATOR RX
[2017-09-19] MEDS: oxyCODONE 10 mg ER Tab (oxyCONTIN) PO SCH ×2 (10:56→21:35)
--- NOTE | 2017-09-19 13:04 | US ---
PROCEDURE: Right lower extremity venous duplex Doppler. HISTORY: r/o DVT COMPARISON: Comparison study 04/07/2017 TECHNIQUE: Common femoral, superficial femoral, popliteal and posterior tibial veins were evaluated. Flow was assessed with color Doppler, compressibility, assessment of phasic flow and augmentation response. FINDINGS: COMMON FEMORAL VEIN: Unremarkable. SUPERFICIAL FEMORAL VEIN: Unremarkable. POPLITEAL VEIN: Unremarkable. POSTERIOR TIBIAL VEIN: Unremarkable. OTHER FINDINGS: None. IMPRESSION: No evidence of deep venous thrombosis in the right lower extremity.
[2017-09-19] MEDS: Albuterol-Ipratrop 3 mg / 0.5 (3 ml) UD INH SCH ×2 (14:11→19:15)
[2017-09-19] MEDS: Cholecalciferol 1,000 INTLU TAB PO SCH (18:47)
[2017-09-19] MEDS: Insulin Detemir 100 Units/ml Inj SC SCH (21:37)
[2017-09-20] MEDS: Albuterol-Ipratrop 3 mg / 0.5 (3 ml) UD INH SCH ×3 (01:04→14:07)
[2017-09-20] MEDS: oxyCODONE 10 mg Immediate Release Tab PO PRN ×2 (01:52→09:00)
[2017-09-20 06:00] LABS: ALB/GLOB RATIO 1.1 (1.0-2.1); ALBUMIN 3.5 g/dL (3.5-5.0); CALCIUM 8.8 mg/dL (8.4-10.2)
[2017-09-20 06:11] LABS: HEMOGLOBIN 10.2 g/dL (12.0-16.0); MEAN CELL VOLUME 81.4 fl (81.0-99.0); MEAN CORPUSCULAR HEMOGLOBIN 26.9 pg (27.0-31.0); RBC 3.79 Mil/uL (3.80-5.20); RED CELL DISTRIBUTION WIDTH 18.2 % (11.5-14.5); WHITE BLOOD COUNT 6.4 K/uL (4.8-10.8)
[2017-09-20 08:15] VITALS: RESP 20
--- NOTE | 2017-09-20 09:01 | CP.PCM.PN ---
Subjective - Date & Time of Evaluation Date of Evaluation: 09/20/17 Time of Evaluation: 08:25 - Subjective Subjective: Able to go to the [place] and back with little duspnoea Telemetry shows sinus rhythm at 66 BPM (On Metoprolol) BP 156/98mm Hg ( on Albuterol inhalation) Mild pedal oedema persists JVP flat, no rales No gallop Labs: BUN/Creatinin 38/1.4 mg (due to diuresis) Pt has significant proteinuria (serum Alb level normal) Discussed with Dr. Malagon ( he will D/C Albuterol) Pt can be managed as out pt Pt promises to weigh herself faithfully and alert her MD if abrupt weight gain happens Should go home on oral Lasix. Objective - Vital Signs/Intake and Output Vital Signs (last 24 hours): Temp Pulse Resp BP Pulse Ox 98.5 F 74 20 157/82 H 95 09/20/17 08:14 09/20/17 08:14 09/20/17 08:14 09/20/17 08:14 09/20/17 08:14 - Medications Medications: Current Medications Albuterol/Ipratropium (Duoneb 3 Mg/0.5 Mg (3 Ml) Ud) 3 ml INH RQ6 [facility] Last Admin: 09/20/17 07:57 Dose: 3 ml Amlodipine Besylate (Norvasc) 5 mg PO DAILY [facility] Last Admin: 09/19/17 08:24 Dose: 5 mg Aspirin (Ecotrin) 81 mg PO DAILY [facility] Last Admin: 09/19/17 08:24 Dose: 81 mg Atorvastatin Calcium (Lipitor) 40 mg PO HS [facility] Last Admin: 09/19/17 21:36 Dose: 40 mg Cholecalciferol (Vitamin D) 2,000 intlu PO DAILY@1700 [facility] Last Admin: 09/19/17 18:47 Dose: Not Given Clonidine HCl (Catapres) 0.2 mg PO Q12 [facility] Last Admin: 09/19/17 21:35 Dose: 0.2 mg Clopidogrel Bisulfate (Plavix) 75 mg PO DAILY [facility] Last Admin: 09/19/17 08:24 Dose: 75 mg Cyanocobalamin (Vitamin B12 1000 Mcg Tab) 1,000 mcg PO DAILY [facility] Last Admin: 09/19/17 08:22 Dose: 1,000 mcg Docusate Sodium (Colace) 100 mg PO BID [facility] Last Admin: 09/19/17 16:38 Dose: 100 mg Enalapril Maleate (Vasotec) 20 mg PO BID [facility] Last Admin: 09/19/17 16:39 Dose: 20 mg Enoxaparin Sodium (Lovenox) 40 mg SC DAILY [facility] PRN Reason: Protocol Last Admin: 09/19/17 16:38 Dose: Not Given Furosemide (Lasix) 40 mg IVP DAILY [facility] Last Admin: 09/19/17 08:25 Dose: 40 mg Piperacillin Sod/Tazobactam (Sod 3.375 gm/ Sodium Chloride) 100 mls @ 100 mls/ hr IVPB Q12 [facility] PRN Reason: Protocol Last Admin: 09/19/17 21:11 Dose: 100 mls/hr Insulin Detemir (Levemir) 80 units SC HS [facility] Last Admin: 09/19/17 21:37 Dose: 80 units Insulin Human Lispro (Humalog) 30 units SC TID [facility] Last Admin: 09/19/17 16:36 Dose: 30 units Metoprolol Succinate (Toprol Xl) 200 mg PO Q12H [facility] Last Admin: 09/19/17 21:34 Dose: 200 mg Oxycodone HCl (Oxycontin Extended Release Tab) 30 mg PO Q12 [facility] Stop: 09/21/17 21:01 Last Admin: 09/19/17 21:35 Dose: 30 mg Oxycodone HCl (Oxycodone Immediate Release Tab) 30 mg PO Q6 PRN PRN Reason: Pain, severe (8-10) Last Admin: 09/20/17 01:52 Dose: 30 mg - Labs Labs: 09/20/17 04:30 09/20/17 04:30
[2017-09-20] MEDS: Insulin Lispro (humaLOG) 100 Units/ml Inj SC SCH ×2 (09:02→13:20)
[2017-09-20] MEDS: Metoprolol Succinate 100 mg XL Tab PO SCH (09:04)
[2017-09-20] MEDS: Piperacillin/Tazobact 3.375 GM in Sodium Chloride 0.9% 100 ML IVPB SCH (09:10)
[2017-09-20] MEDS: Enoxaparin 40 mg Syringe SC SCH (09:11)
--- NOTE | 2017-09-20 09:25 | CP.PCM.DIS ---
Provider - Provider Date of Admission: 09/17/17 03:47 Attending physician: Mario Malagon MD Primary care physician: Sarath Doshi MD Time Spent in preparation of Discharge (in minutes): 35 Diagnosis - Discharge Diagnosis (1) Acute CHF (congestive heart failure) Status: Acute (2) Cellulitis of leg Status: Acute (3) Foot pain, right Status: Acute (4) Anxiety Status: Chronic Priority: Medium (5) CAD (coronary artery disease) Status: Chronic Priority: Medium (6) Chronic back pain Status: Chronic Priority: Low (7) Diabetes mellitus with hyperglycemia Status: Chronic (8) Dyslipidemia Status: Chronic Priority: High (9) Essential hypertension Status: Chronic (10) Hypertension Status: Chronic Priority: Medium (11) Type 2 diabetes mellitus with hyperglycemia Status: Chronic Priority: Medium Hospital Course - Lab Results Lab Results: Micro Results 09/17/17 06:15 Blood Blood Culture - Preliminary NO GROWTH AFTER 3 DAYS 09/17/17 06:15 Blood Blood Culture - Preliminary NO GROWTH AFTER 3 DAYS Most Recent Lab Values WBC 6.4 K/uL (4.8-10.8) 09/20/17 04:30 RBC 3.79 Mil/uL (3.80-5.20) L 09/20/17 04:30 Hgb 10.2 g/dL (12.0-16.0) L 09/20/17 04:30 Hct 30.9 % (34.0-47.0) L 09/20/17 04:30 MCV 81.4 fl (81.0-99.0) 09/20/17 04:30 MCH 26.9 pg (27.0-31.0) L 09/20/17 04:30 MCHC 33.0 g/dL (33.0-37.0) 09/20/17 04:30 RDW 18.2 % (11.5-14.5) H 09/20/17 04:30 Plt Count 222 K/uL (130-400) 09/20/17 04:30 MPV 7.5 fl (7.2-11.7) 09/17/17 02:44 Neut % (Auto) 81.4 % (50.0-75.0) H 09/17/17 02:44 Lymph % (Auto) 11.2 % (20.0-40.0) L 09/17/17 02:44 [place] % (Auto) 5.5 % (0.0-10.0) 09/17/17 02:44 Eos % (Auto) 1.1 % (0.0-4.0) 09/17/17 02:44 Baso % (Auto) 0.8 % (0.0-2.0) 09/17/17 02:44 Neut # (Auto) 7.4 K/uL (1.8-7.0) H 09/17/17 02:44 Lymph # (Auto) 1.0 K/uL (1.0-4.3) 09/17/17 02:44 [place] # (Auto) 0.5 K/uL (0.0-0.8) 09/17/17 02:44 Eos # (Auto) 0.1 K/uL (0.0-0.7) 09/17/17 02:44 Baso # (Auto) 0.1 K/uL (0.0-0.2) 09/17/17 02:44 D-Dimer, Quantitative 190 ng/mlDDU (0-230) 09/17/17 02:44 Sodium 144 mmol/l (132-148) 09/20/17 04:30 Potassium 4.5 MMOL/L (3.6-5.0) 09/20/17 04:30 Chloride 100 mmol/L (98-107) 09/20/17 04:30 Carbon Dioxide 28 mmol/L (22-30) 09/20/17 04:30 Anion Gap 21 (10-20) H 09/20/17 04:30 BUN 38 mg/dl (7-17) H 09/20/17 04:30 Creatinine 1.3 mg/dl (0.7-1.2) H 09/20/17 04:30 Est GFR ( Amer) 52 09/20/17 04:30 Est GFR (Non-Af Amer) 43 09/20/17 04:30 POC Glucose (mg/dL) 296 mg/dL (65-110) H 09/20/17 05:49 Random Glucose 217 mg/dL (65-105) H 09/20/17 04:30 Lactic Acid 1.6 MMOL/L (0.7-2.1) 09/17/17 02:44 Calcium 8.8 mg/dL (8.4-10.2) 09/20/17 04:30 Total Bilirubin 0.5 mg/dl (0.2-1.3) 09/20/17 04:30 AST 32 U/L (14-36) 09/20/17 04:30 ALT 25 U/L (9-52) 09/20/17 04:30 Alkaline Phosphatase 91 U/L (38-126) 09/20/17 04:30 Troponin I < 0.0120 ng/mL (0.00-0.120) 09/17/17 02:44 NT-Pro-B Natriuret Pep 655 pg/ml (0-900) 09/18/17 05:21 Total Protein 6.7 G/DL (6.3-8.2) 09/20/17 04:30 Albumin 3.5 g/dL (3.5-5.0) 09/20/17 04:30 Globulin 3.2 gm/dL (2.2-3.9) 09/20/17 04:30 Albumin/Globulin Ratio 1.1 (1.0-2.1) 09/20/17 04:30 Urine Color Straw (YELLOW) 09/17/17 03:03 Urine Clarity Clear (Clear) 09/17/17 03:03 Urine pH 7.0 (5.0-8.0) 09/17/17 03:03 Ur Specific [place] 1.008 (1.003-1.030) 09/17/17 03:03 Urine Protein >=500 mg/dL (NEGATIVE) 09/17/17 03:03 Urine Glucose (UA) >=500 mg/dL (Normal) 09/17/17 03:03 Urine Ketones Negative mg/dL (NEGATIVE) 09/17/17 03:03 Urine Blood Small (NEGATIVE) 09/17/17 03:03 Urine Nitrate Negative (NEGATIVE) 09/17/17 03:03 Urine Bilirubin Negative (NEGATIVE) 09/17/17 03:03 Urine Urobilinogen 0.2-1.0 mg/dL (0.2-1.0) 09/17/17 03:03 Ur Leukocyte Esterase Neg [place]/uL (Negative) 09/17/17 03:03 Urine RBC (Auto) 3 /hpf (0-3) 09/17/17 03:03 Urine Microscopic WBC < 1 /hpf (0-5) 09/17/17 03:03 Ur Squamous Epith Cells 1 /hpf (0-5) 09/17/17 03:03 Urine Bacteria Rare (<OCC) 09/17/17 03:03 Hyaline Casts 3-5 /hpf (0-2) H 09/17/17 03:03 - Hospital Course Hospital Course: CLINICALLY IMPROVED Discharge Exam - Head Exam Head Exam: ATRAUMATIC, NORMAL INSPECTION, NORMOCEPHALIC - Eye Exam Eye Exam: EOMI, Normal appearance, PERRL Pupil Exam: NORMAL ACCOMODATION, PERRL - GI/Abdominal Exam GI & Abdominal Exam: Normal Bowel Sounds - Rectal Exam Rectal Exam: NORMAL INSPECTION - Extremities Exam Extremities exam: tenderness - Neurological Exam Neurological exam: Alert, CN II-XII Intact, Normal Gait, Oriented x3, Reflexes Normal - Psychiatric Exam Psychiatric exam: Normal Affect, Normal Mood - Skin Skin Exam: Dry, Intact, Normal Color, Warm Discharge Plan - Follow Up Plan Condition: FAIR Disposition: HOME/ ROUTINE Patient education suggested?: Yes Additional Instructions: DISCHARGE TODAY FOLLOW UP WITH PMD AND DR JARRETT--RN OUTPATIENT SURGERY Referrals: Sarath Doshi MD [Primary Care Provider] -
[2017-09-20 12:51] VITALS: BP 138/59; PULSE 75; TEMP 98.4; O2SAT 96
[2017-09-20] MEDS: oxyCODONE 10 mg ER Tab (oxyCONTIN) PO SCH (13:19)
== END 2017-09-20 14:20 | disposition home or self-care (01) | DRG 292 ==
LOC: H.ER 01:14 → OBSVTOIN 03:47 → H.ERHOLD 03:47 → H.TEL 20:36
PROVIDERS: ADMIT Internal Medicine Pulmonary Disease; ATTEND Internal Medicine Pulmonary Disease
DX: I11.0 Hypertensive heart disease with heart failure (principal); L03.119 Cellulitis of unspecified part of limb; E11.40 Type 2 diabetes mellitus with diabetic neuropathy, unspecified; E11.51 Type 2 diabetes mellitus with diabetic peripheral angiopathy without gangrene; M86.9 Osteomyelitis, unspecified; E11.628 Type 2 diabetes mellitus with other skin complications; E11.610 Type 2 diabetes mellitus with diabetic neuropathic arthropathy; I25.10 Atherosclerotic heart disease of native coronary artery without angina pectoris; I25.2 Old myocardial infarction; I50.33 Acute on chronic diastolic (congestive) heart failure; J98.01 Acute bronchospasm; E11.65 Type 2 diabetes mellitus with hyperglycemia; Z79.4 Long term (current) use of insulin; Z79.02 Long term (current) use of antithrombotics/antiplatelets; Z79.82 Long term (current) use of aspirin; Z86.73 Personal history of transient ischemic attack (TIA), and cerebral infarction without residual deficits; Z87.891 Personal history of nicotine dependence; Z90.49 Acquired absence of other specified parts of digestive tract; Z95.5 Presence of coronary angioplasty implant and graft; F32.9 Major depressive disorder, single episode, unspecified; F45.9 Somatoform disorder, unspecified; L97.529 Non-pressure chronic ulcer of other part of left foot with unspecified severity; M19.90 Unspecified osteoarthritis, unspecified site; R06.01 Orthopnea; Z79.899 Other long term (current) drug therapy; M54.9 Dorsalgia, unspecified; M79.662 Pain in left lower leg; M79.661 Pain in right lower leg; R80.9 Proteinuria, unspecified; D64.9 Anemia, unspecified; E11.69 Type 2 diabetes mellitus with other specified complication; E78.00 Pure hypercholesterolemia, unspecified; E78.5 Hyperlipidemia, unspecified; F41.9 Anxiety disorder, unspecified; G89.29 Other chronic pain

== ENCOUNTER 2018-02-17 11:52 | Emergency (ER) | payer OTHER ==
[2018-02-17 11:53] VITALS: BMI 37.4
--- NOTE | 2018-02-17 14:08 | RAD ---
Date of service: 02/17/2018 HISTORY: cough COMPARISON: 09/18/2017. TECHNIQUE: Chest PA and lateral FINDINGS: LUNGS: No active pulmonary disease. PLEURA: No significant pleural effusion identified. No pneumothorax apparent. CARDIOVASCULAR: No radiographic findings to suggest acute or significant cardiovascular disease. OSSEOUS STRUCTURES: No significant abnormalities. VISUALIZED UPPER ABDOMEN: Normal. OTHER FINDINGS: None. IMPRESSION: No active disease. No significant interval change compared to the prior examination(s).
--- NOTE | 2018-02-17 14:11 | ED PDOC ---
HPI: Psych/Substance Abuse Time Seen by Provider: 02/17/18 12:11 Chief Complaint (Nursing): Anxiety Chief Complaint (Provider): Anxiety History Per: Patient History/Exam Limitations: no limitations Onset/Duration Of Symptoms: Persistent (x5 years), Worse Since (x2 days) Current Symptoms Are (Timing): Still Present Additional Complaint(s): 52 year old female arrives to ED for an evaluation of intermittent anxiety associated with sweats, panic attacks, shortness of breath and pacing. Patient states she has been feeling these episodes for 5 years since her 's passing with resolution once she goes outsides and sits on a bench. She was prescribed Xanax in the past by her PMD but has not had a proper psych evaluation. Patient states, en route to ED, she began feeling better with no current chest pain or shortness of breath. Patient additionally reports having cough, congestion and a sore throat for the last 2 days. She denies any fever, chills, hemoptysis, palpitations, SI, HI, audio or visual hallucinations. Of note, patient notes more anxiety regarding a pending foot surgery scheduled on 03/07/18. PMD: Dr. Sarath Doshi Past Medical History Reviewed: Historical Data, Nursing Documentation, Vital Signs Vital Signs: Last Vital Signs Temp 98.3 F 02/17/18 12:00 Pulse 102 H 02/17/18 12:00 Resp 18 02/17/18 12:00 BP 124/72 02/17/18 12:00 Pulse Ox 95 02/17/18 12:00 - Medical History PMH: Anemia, Anxiety, Arthritis, Back Problems (herniated disks), CAD, CVA, Depression, Diabetes, HTN, Hypercholesterolemia, Hyperlipidemia, Peripheral Edema Denies: CHF, COPD, HIV, Hypothyroidism, Chronic Kidney Disease, Rheumatoid Arthritis - Surgical History Surgical History: Appendectomy, Coronary Stent - Family History Family History: States: No Known Family Hx - Social History Current smoker - smoking cessation education provided: No Alcohol: None Drugs: Denies - Immunization History Hx Tetanus Toxoid Vaccination: No Hx Influenza Vaccination: No Hx Pneumococcal Vaccination: No - Home Medications Home Medications: Ambulatory Orders Medication Instructions Recorded Clopidogrel [Plavix] 75 mg PO DAILY 06/19/14 Atorvastatin Calcium [Lipitor] 40 mg PO HS 10/22/14 Metoprolol Succinate XL [Toprol XL] 200 mg PO Q12H 05/28/15 oxyCODONE [oxyCODONE Immediate 30 mg PO Q6H PRN 05/28/15 Release Tab] Morphine Sulfate [Morphine Sulfate 30 mg PO Q12H 03/27/16 ER] Aspirin [Ecotrin] 81 mg PO DAILY tabec 07/25/16 ALPRAZolam [Xanax] 0.25 mg PO BID PRN 11/11/16 Cyanocobalamin [Vitamin B12 1000 1,000 mcg PO DAILY 11/11/16 mcg Tab] Isosorbide Mononitrate [Imdur] 60 mg PO DAILY 11/11/16 Insulin Detemir [Levemir] 80 units SC HS 05/31/17 Insulin Lispro [Humalog (Insulin 30 unit SQ TID 05/31/17 Lispro)] cloNIDine [Catapres] 0.2 mg PO Q12 #60 tab 06/07/17 Cyanocobalamin (Vitamin B-12) 1,000 mcg PO DAILY 09/17/17 [B-12] Enalapril Maleate [Vasotec] 20 mg PO BID 09/17/17 Furosemide [Lasix] 40 mg PO DAILY #30 udc 09/20/17 amLODIPine [Norvasc] 10 mg PO DAILY #30 09/20/17 Azithromycin [Zithromax] 250 mg PO DAILY #6 tab 02/17/18 Benzonatate [Tessalon Perle] 100 mg PO Q8 PRN #30 capsule 02/17/18 Fluticasone Propionate [Flonase] 2 spr NS DAILY PRN #1 bottle 02/17/18 - Allergies Allergies/Adverse Reactions: Allergies Allergy/AdvReac Type Severity Reaction Status Date / Time morphine AdvReac NAUSEA Verified 02/17/18 12:06 Review of Systems ROS Statement: Except As Marked, All Systems Reviewed And Found Negative Constitutional: Positive for: Sweats. Negative for: Fever, Chills ENT: Positive for: Nose Congestion, Throat Pain Cardiovascular: Negative for: Chest Pain, Palpitations Respiratory: Positive for: Cough, Shortness of Breath (resolved). Negative for : Hemoptysis Psych: Positive for: Anxiety. Negative for: Suicidal ideation (or HI/ hallucinations) Physical Exam - Reviewed Nursing Documentation Reviewed: Yes Vital Signs Reviewed: Yes - Physical Exam Appears: Positive for: No Acute Distress Head Exam: Positive for: ATRAUMATIC, NORMAL INSPECTION, NORMOCEPHALIC Skin: Positive for: Normal Color Eye Exam: Positive for: Normal appearance, EOMI, PERRL ENT: Positive for: Normal ENT Inspection. Negative for: Pharyngeal Erythema, Tonsillar Exudate, Tonsillar Swelling Neck: Positive for: Normal Cardiovascular/Chest: Positive for: Regular Rate, Rhythm, Chest Non Tender Respiratory: Positive for: Normal Breath Sounds. Negative for: Wheezing, Respiratory Distress Extremity: Positive for: Normal ROM (upper/lower) Neurologic/Psych: Positive for: Alert, Oriented (x3), Mood/Affect (calm and cooperative). Negative for: Motor/Sensory Deficits - ECG ECG: Positive for: Interpreted By Me ECG Rhythm: Positive for: Sinus Rhythm. Negative for: ST/T Changes Rate: 87 O2 Sat by Pulse Oximetry: 95 (RA) Pulse Ox Interpretation: Normal - Progress ED Course And Treament: Pt. evaluated by Anil layup worker, who spoke with Dr. Gr and cleared pt. for discharge. Medical Decision Making Medical Decision Making: Initial Impression: Anxiety; URI symptoms Initial Plan: * EKG * Crisis eval * CXR * Rapid strep Time: 1406 --CXR FINDINGS: LUNGS: No active pulmonary disease. PLEURA: No significant pleural effusion identified. No pneumothorax apparent. CARDIOVASCULAR: No radiographic findings to suggest acute or significant cardiovascular disease. OSSEOUS STRUCTURES: No significant abnormalities. VISUALIZED UPPER ABDOMEN: Normal. OTHER FINDINGS: None. IMPRESSION: No active disease. No significant interval change compared to the prior examination(s). Scribe Attestation: Documented by Yesika Jennings, acting as a scribe for Marco Antonio Beavers PA-C. Provider Scribe Attestation: All medical record entries made by the Scribe were at my direction and personally dictated by me. I have reviewed the chart and agree that the record accurately reflects my personal performance of the history, physical exam, medical decision making, and the department course for this patient. I have also personally directed, reviewed, and agree with the discharge instructions and disposition. Disposition - Clinical Impression Clinical Impression: URI (upper respiratory infection) - Patient ED Disposition Is Patient to be Admitted: No - Disposition Referrals: [facility] [Outside] Disposition: Routine/Home Disposition Time: 15:00 Condition: STABLE Additional Instructions: CARLITA SHELDON, thank you for letting us take care of you today. Your provider was Christina Yepez MD and you were treated for POSS PANIC ATTACK. The emergency medical care you received today was directed at your acute symptoms. If you were prescribed any medication, please fill it and take as directed. It may take several days for your symptoms to resolve. Return to the Emergency Department if your symptoms worsen, do not improve, or if you have any other problems. Please contact your doctor or call one of the physicians/clinics you have been referred to that are listed on the Patient Visit Information form that is included in your discharge packet. Bring any paperwork you were given at discharge with you along with any medications you are taking to your follow up visit. Our treatment cannot replace ongoing medical care by a primary care provider outside of the emergency department. Thank you for allowing the [facility] team to be part of your care today. If you had an X-Ray or CT scan: A Radiologist will review the ED reading if any change in treatment is needed we will contact you. If you had a blood, urine, or wound culture: It will take several days for the results, if any change in treatment is needed we will contact you. If you had an STI test: It will take 48 hours for the results. Please call after 1 week if you have not heard back. Prescriptions: Azithromycin [Zithromax] 250 mg PO DAILY #6 tab Benzonatate [Tessalon Perle] 100 mg PO Q8 PRN #30 capsule PRN Reason: Cough Fluticasone Propionate [Flonase] 2 spr NS DAILY PRN #1 bottle PRN Reason: Allergy Symptoms Instructions: Viral Upper Respiratory Infection, Adult (DC) Forms: [facility] (Kyrgyz) Print Language: CONGOLESE
[2018-02-17 15:04] VITALS: BP 129/81; RESP 15; TEMP 98.9
[2018-02-17 18:20] VITALS: PULSE 87; O2SAT 95
--- NOTE | 2018-02-18 07:22 | CARD ---
APPROVED REPORT Date of service: 02/17/2018 <Conclusion> Normal sinus rhythm Nonspecific ST and T wave abnormality Abnormal ECG
== END 2018-02-17 15:04 | disposition home or self-care (01) ==
LOC: H.ER 11:52
DX: J06.9 Acute upper respiratory infection, unspecified (principal); E11.9 Type 2 diabetes mellitus without complications; E78.00 Pure hypercholesterolemia, unspecified; I25.10 Atherosclerotic heart disease of native coronary artery without angina pectoris; Z79.4 Long term (current) use of insulin; Z86.73 Personal history of transient ischemic attack (TIA), and cerebral infarction without residual deficits

== ENCOUNTER 2018-03-16 21:35 | Inpatient (IN) | payer OTHER ==
--- NOTE | 2018-03-16 23:47 | ED PDOC ---
Lower Extremity Pain/Injury Time Seen by Provider: 03/16/18 22:27 Chief Complaint (Nursing): Lower Extremity Problem/Injury Chief Complaint (Provider): LEFT foot pain History Per: Patient History/Exam Limitations: no limitations Onset/Duration Of Symptoms: Days (2, but chronic for many yeras) Additional Complaint(s): Open wounds to bilateral feet Associated with fever, chills, malaise and fatigue today. Followed by Dr James Macdonald podiatry PMD [facility] (not associated with [facility]) Past Medical History Reviewed: Historical Data, Nursing Documentation, Vital Signs Vital Signs: Last Vital Signs Temp 102.1 F H 03/16/18 22:04 Pulse 111 H 03/16/18 22:04 Resp 20 03/16/18 22:04 BP 178/74 H 03/16/18 22:04 Pulse Ox 97 03/16/18 22:04 - Medical History PMH: Anemia, Anxiety, Arthritis, Back Problems (herniated disks), CAD, CVA, Depression, Diabetes, HTN, Hypercholesterolemia, Hyperlipidemia, Peripheral Edema Denies: CHF, COPD, Hepatitis, HIV, Hypothyroidism, Chronic Kidney Disease, Rheumatoid Arthritis, Seizures, Sexually Transmitted Disease - Surgical History Surgical History: Appendectomy, Coronary Stent - Family History Family History: States: Unknown Family Hx - Social History Current smoker - smoking cessation education provided: No - Immunization History Hx Tetanus Toxoid Vaccination: No Hx Influenza Vaccination: No Hx Pneumococcal Vaccination: No - Home Medications Home Medications: Ambulatory Orders Medication Instructions Recorded Clopidogrel [Plavix] 75 mg PO DAILY 06/19/14 Atorvastatin Calcium [Lipitor] 40 mg PO HS 10/22/14 Metoprolol Succinate XL [Toprol XL] 200 mg PO Q12H 05/28/15 oxyCODONE [oxyCODONE Immediate 30 mg PO Q6H PRN 05/28/15 Release Tab] Morphine Sulfate [Morphine Sulfate 30 mg PO Q12H 03/27/16 ER] Aspirin [Ecotrin] 81 mg PO DAILY tabec 07/25/16 ALPRAZolam [Xanax] 0.25 mg PO BID PRN 11/11/16 Cyanocobalamin [Vitamin B12 1000 1,000 mcg PO DAILY 11/11/16 mcg Tab] Isosorbide Mononitrate [Imdur] 60 mg PO DAILY 11/11/16 Insulin Detemir [Levemir] 80 units SC HS 05/31/17 Insulin Lispro [Humalog (Insulin 30 unit SQ TID 05/31/17 Lispro)] cloNIDine [Catapres] 0.2 mg PO Q12 #60 tab 06/07/17 Enalapril Maleate [Vasotec] 20 mg PO BID 09/17/17 amLODIPine [Norvasc] 10 mg PO DAILY #30 09/20/17 - Allergies Allergies/Adverse Reactions: Allergies Allergy/AdvReac Type Severity Reaction Status Date / Time No Known Allergies Allergy Verified 03/17/18 04:21 Review of Systems ROS Statement: Except As Marked, All Systems Reviewed And Found Negative (and as per HPI) Constitutional: Positive for: Fever. Negative for: Weakness, Malaise ENT: Negative for: Nose Discharge, Throat Pain Cardiovascular: Positive for: Edema. Negative for: Chest Pain Musculoskeletal: Positive for: Leg Pain, Foot Pain Skin: Positive for: Rash, Lesions Neurological: Negative for: Numbness Physical Exam - Reviewed Nursing Documentation Reviewed: Yes Vital Signs Reviewed: Yes - Physical Exam Appears: Positive for: Non-toxic, In Acute Distress Head Exam: Positive for: ATRAUMATIC, NORMOCEPHALIC Skin: Positive for: Warm, Dry Eye Exam: Positive for: EOMI, PERRL ENT: Negative for: Pharyngeal Erythema, Tonsillar Exudate Neck: Positive for: Painless ROM, Supple Cardiovascular/Chest: Positive for: Tachycardia. Negative for: Murmur Respiratory: Positive for: Normal Breath Sounds. Negative for: Respiratory Distress Gastrointestinal/Abdominal: Positive for: Soft. Negative for: Tenderness Back: Positive for: Normal Inspection Extremity: Positive for: Pedal Edema, Other (RIGHT foot: postsurgical changes, wound dry. LEFT foot: open deep wet wound plantar surface well demarcated mild erythema) Lymphatic: Negative for: Adenopathy Neurologic/Psych: Positive for: Alert. Negative for: Motor/Sensory Deficits - Laboratory Results Result Diagrams: 03/18/18 09:47 03/18/18 05:25 - ECG O2 Sat by Pulse Oximetry: 97 Medical Decision Making Medical Decision Making: Time: 6061 Plan: -- VBG -- EKG -- CMP -- CRP -- Magnesium -- Phosphorus -- CBC with differentials -- Erythrocyte Sedimentation Rate -- PTT -- Prothrombin Time -- CXR Portable -- Foot 3 Views BI XR -- Glucose, POC -- Toradol 15 mg IVP -- Tylenol 975 mg PO -- Zofran Inj 4 mg IVP -- Blood Culture -- Urine Culture -- Wound Culture and Gram Stain -- IV Insertion -- Glucose, Blood, POC -- Urinalysis Time: 0000 -- Patient endorsed to Dr. Bello, pending ER workup, reassessment and final ER disposition. Scribe Attestation: Documented by Farhad Menjivar acting as a scribe for Kenisha Perdomo MD. Provider Scribe Attestation: All medical record entries made by the Scribe were at my direction and personally dictated by me. I have reviewed the chart and agree that the record accurately reflects my personal performance of the medical decision making for this patient. I have also personally directed, reviewed, and agree with the discharge instructions and disposition. Disposition - Clinical Impression Clinical Impression: Cellulitis of left foot, Charcot foot due to diabetes mellitus - Disposition Disposition: Transfer of Care Disposition Time: 00:30 Condition: FAIR - POA Present On Arrival: Poor Glycemic Control
--- NOTE | 2018-03-17 00:03 | CP.PCM.CON ---
History of Present Illness - History of Present Illness History of Present Illness: Podiatry consult notes for attending Dr. Macdonald 51 year old female patient with PMH of DM, HTN, hypercholesterolemia, CVS and CHF was seen and evaluated at bedside in ED for left lower extremity pain, redness and swelling. Patient states thart she was at her sister's yesterday when she got tripped and twisted her left ankle. Patient states that she immidiatly felt pain. She states that the pain was sever 9/10 and not relieved by any thing. patient states that she is following up with Dr. Macdonald for her left Charcot foot and bilateral foot ulcers. She states that it was planned that she will have a surgery next week. She states that since yesterday she developped fever and achilles. She states that she had nausea and vomitting. Patient states that she has neuropathy and she can't feel her feet. patient denies any other pedal complaint at this time. PMHx: DM, HTN, hypercholesterolemia, CHF and CVS PSHx: Appendectomy, right foot TMA w/Achilles lengthening, right leg stents, coronary stent placement x2 SHx: denies ETOH, former tobacco use (1PPD for 15 years - stopped 6 years ago), denies illicit drug use Allergies: morphine Review of Systems - Review of Systems Review of Systems: As per HPI Past Patient History - Infectious Disease Hx of Infectious Diseases: None - Tetanus Immunizations Tetanus Immunization: Unknown - Past Medical History & Family History Past Medical History?: Yes - Past Social History Smoking Status: Former Smoker - CARDIAC Hx Congestive Heart Failure: No Hx Hypercholesterolemia: Yes Hx Hypertension: Yes Hx Peripheral Edema: Yes - PULMONARY Hx Chronic Obstructive Pulmonary Disease (COPD): No - NEUROLOGICAL Hx Seizures: No - HEENT Hx HEENT Problems: No - RENAL Hx Chronic Kidney Disease: No - ENDOCRINE/METABOLIC Hx Hypothyroidism: No - HEMATOLOGICAL/ONCOLOGICAL Hx Anemia: Yes Hx Human Immunodeficiency Virus (HIV): No - INTEGUMENTARY Hx Dermatological Problems: No - MUSCULOSKELETAL/RHEUMATOLOGICAL Hx Arthritis: Yes Hx Rheumatoid Arthritis: No - GASTROINTESTINAL Hx Gastrointestinal Disorders: No - GENITOURINARY/GYNECOLOGICAL Hx Sexually Transmitted Disorders: No - PSYCHIATRIC Hx Anxiety: Yes Hx Depression: Yes - SURGICAL HISTORY Hx Appendectomy: Yes Hx Coronary Stent: Yes - ANESTHESIA Hx Anesthesia: Yes Hx Anesthesia Reactions: Yes (CAN'T BREATH-ADMITTED TO ICU) Hx Malignant Hyperthermia: No Meds Allergies/Adverse Reactions: Allergies Allergy/AdvReac Type Severity Reaction Status Date / Time morphine AdvReac NAUSEA Verified 03/16/18 21:56 Physical Exam - Constitutional Appears: Non-toxic - Head Exam Head Exam: ATRAUMATIC, NORMOCEPHALIC - Extremities Exam Additional comments: Bilateral LE focused examination: Vasc: DP/PT pulses palpable 1/4. Temperature gradient warm to warmer from proximal to distal on the left and warm to warm on the right. Cap refill time < 3 sec to all digits; +1 pitting edema noted at the distal medial leg on the left side. Neuro: Protective sensation grossly diminished bilaterally. Derm: Diffuse diabetic dermopathy noted to leg and ankle region. Hyperpigmented , thickened skin right>left. An ulcer present in the plantar aspect of the left midfoot measures 2.4 X 1.5 X 0.3 cm. Wound margins are hyper keratotic, base is granular 100%. No malodor, Minimal serous drainage. no tracking, undermining or probing to bone. another ulcer measures 1.4cm x 0.8cm x 0.2cm ulceration noted to plantar midfoot on the right. Wound margins are hyper keratotic, base is granular 100%. No malodor, No drainage. no tracking, undermining or probing to bone. MSK: Pain on palpating the left perimalleolar area lateral > medial. Pain with inversion of the left ankle. Muscle power couldn't be assessed on the left side due to guarding. - Neurological Exam Neurological exam: Alert, Oriented x3 - Psychiatric Exam Psychiatric exam: Normal Affect Results - Vital Signs Recent Vital Signs: Last Vital Signs Temp 102.1 F H 03/16/18 22:04 Pulse 111 H 03/16/18 22:04 Resp 20 03/16/18 22:04 BP 178/74 H 03/16/18 22:04 Pulse Ox 97 03/16/18 23:55 - Labs Result Diagrams: 03/17/18 00:08 Labs: Laboratory Results - last 24 hr 03/16/18 23:13 POC Glucose (mg/dL) 237 H Assessment & Plan - Assessment and Plan (Free Text) Assessment: 52 y/o F patient seen and evaluated at the ED for left Charcot foot flare/ cellulitis. and pain in her left ankle. Plan: Patient seen and evaluated at bedside in ED Discussed patient in details with attending Dr. Macdonald Labs, vitals and charts reviewed; Febrile 102.1F, WBCs 11.1 X-rays of the B/L foot reviewed: - Abnormal osseous morphology consisted with Charcot arthropathy on the left side. - TMA on the right side Wounds cleaned using saline and dressing applied using bacitracin, DSD Posterior splint applied to the left foot Patient will be admitted by the primary team. Wound culture ordered and sent by the ED doctor Patient instructed to keep her leg elevated. Patient demonstrated verbal understanding Podiatry will Follow up the patient while in house. - Date & Time Date: 03/17/18 Time: 00:03
[2018-03-17 00:24] LABS: BASO # 0.1 K/uL (0.0-0.2); BASO % 1.1 % (0.0-2.0); EOS % 0.1 % (0.0-4.0); HEMOGLOBIN 10.6 g/dL (12.0-16.0); LYMPH # 0.5 K/uL (1.0-4.3); LYMPH % 4.9 % (20.0-40.0); MEAN CELL VOLUME 80.8 fl (81.0-99.0); MEAN CORPUSCULAR HEMOGLOBIN 26.7 pg (27.0-31.0); MEAN PLATELET VOLUME 8.2 fl (7.2-11.7); MONO # 0.4 K/uL (0.0-0.8); NEUT # 9.9 K/uL (1.8-7.0); NEUT % 89.9 % (50.0-75.0); PLATELET COUNT 357 K/uL (130-400); RBC 3.97 Mil/uL (3.80-5.20); RED CELL DISTRIBUTION WIDTH 15.9 % (11.5-14.5); WHITE BLOOD COUNT 11.1 K/uL (4.8-10.8)
[2018-03-17 00:27] LABS: INR 1.1; PROTHROMBIN TIME 12.3 Seconds (9.8-13.1)
[2018-03-17 00:29] LABS: PARTIAL THROMBOPLASTIN TIME 31.5 Seconds (25.6-37.1)
[2018-03-17 00:29] LABS: VENOUS BLOOD GAS BASE EXCESS 5.2 mmol/L (0.0-2.0); VENOUS BLOOD GAS PCO2 43 mmHg (40-60); VENOUS BLOOD GAS PO2 34 mm/Hg (30-55); VENOUS BLOOD PH 7.45 (7.32-7.43)
--- NOTE | 2018-03-17 00:48 | ED PDOC ---
- Laboratory Results Result Diagrams: 03/17/18 00:08 03/17/18 00:08 - ECG O2 Sat by Pulse Oximetry: 97 (RA) Pulse Ox Interpretation: Normal Medical Decision Making Medical Decision Making: Time: 0000 -- At this time, patient endorsed to me by Dr. Perdomo pending labs, podiatry consult and possible admission for a diagnosis of sepsis. Time: 0115 -- Patient evaluated by podiatry. Patient to be admitted with a diagnosis of left foot cellulitis and SIRS. Patient referred to Dr. Malagon, medicine dish up person for admission. Scribe Attestation: Documented by Farhad Menjivar acting as a scribe for Zander Bello MD. Provider Scribe Attestation: All medical record entries made by the Scribe were at my direction and personally dictated by me. I have reviewed the chart and agree that the record accurately reflects my personal performance of the history, physical exam, medical decision making, and the department course for this patient. I have also personally directed, reviewed, and agree with the discharge instructions and disposition. Disposition Counseled Patient/Family Regarding: Studies Performed, Diagnosis - Clinical Impression Clinical Impression: Cellulitis of left foot, Charcot foot due to diabetes mellitus - POA Present On Arrival: Poor Glycemic Control - Disposition Disposition: Routine/Home Disposition Time: 01:15 Condition: FAIR
[2018-03-17] MEDS ORDERED: Piperacillin/Tazobact 3.375 GM in Sodium Chloride 0.9% 100 ML IV STA (01:02)
[2018-03-17 01:23] LABS: ALBUMIN 4.4 g/dL (3.5-5.0)
[2018-03-17] MEDS ORDERED: Oxycodone/Acetaminophen 5/325 mg Tab PO STA (01:23)
[2018-03-17] MEDS ORDERED: Oxycodone/Acetaminophen 5/325 mg Tab ONE (01:26)
[2018-03-17] MEDS ORDERED: Piperacillin/Tazobact 3.375 gm Inj IVPB ONE (01:27)
[2018-03-17] MEDS ORDERED: Vancomycin 1 g Inj ONE (01:27)
[2018-03-17] MEDS ORDERED: Morphine 4 MG/ML VIAL ONE (03:00)
[2018-03-17] MEDS ORDERED: Dextrose 50% SYRINGE Inj (50 ml) IV PRN (03:06)
[2018-03-17] MEDS ORDERED: Glucagon Recombinant 1 mg Inj IM PRN (03:06)
[2018-03-17 03:39] LABS: ANISOCYTOSIS SLIGHT; LYMPHOCYTE 3 % (20-50); MONOCYTE 2 % (0-10); NEUTROPHIL 95 % (42-75); PLATELET ESTIMATE NORMAL (NORMAL); POLYCHROMIC SLIGHT; TOTAL CELLS COUNTED 100
[2018-03-17] MEDS ORDERED: MORPHINE SULFATE 30 MG PO SCH (04:00)
[2018-03-17 04:05] LABS: ERYTHROCYTE SEDIMENTATION RATE 114 mm/hr (0-30)
[2018-03-17] MEDS ORDERED: Insulin Regular 100 units/ml SC STA (05:46)
[2018-03-17 06:07] LABS: SQUAMOUS EPITHIAL 7 /hpf (0-5); URINE BACTERIA MANY (<OCC); URINE BILIRUBIN NEGATIVE (NEGATIVE); URINE BLOOD MODERATE (NEGATIVE); URINE CLARITY CLOUDY (Clear); URINE COLOR YELLOW (YELLOW); URINE GLUCOSE (UA) >=500 mg/dL (Normal); URINE HYALINE CAST 0-2 /hpf (0-2); URINE LEUKOCYTE ESTERASE NEG Leu/uL (Negative); URINE PROTEIN >=500 mg/dL (NEGATIVE); URINE UROBILINOGEN 0.2-1.0 mg/dL (0.2-1.0)
[2018-03-17] MEDS: Insulin Regular 100 units/ml SC SCH ×2 (07:25→12:20)
[2018-03-17] MEDS: Insulin Lispro (humaLOG) 100 Units/ml Inj SC SCH ×5 (08:23→21:11)
--- NOTE | 2018-03-17 08:38 | RAD ---
Date of service: 03/16/2018 HISTORY: sepsis COMPARISON: 02/17/2018 FINDINGS: LUNGS: The lungs are well inflated and clear. PLEURA: No significant pleural effusion identified, no pneumothorax apparent. CARDIOVASCULAR: Normal. OSSEOUS STRUCTURES: No significant abnormalities. VISUALIZED UPPER ABDOMEN: Normal. OTHER FINDINGS: None. IMPRESSION: No active pulmonary disease.
--- NOTE | 2018-03-17 08:45 | CARD ---
APPROVED REPORT Date of service: 03/16/2018 <Conclusion> Sinus tachycardia Possible Left atrial enlargement Septal infarct, age undetermined Abnormal ECG
[2018-03-17] MEDS ORDERED: INSULIN LISPRO 30 UNIT SQ SCH (09:00)
[2018-03-17] MEDS: oxyCODONE 10 mg Immediate Release Tab PO PRN ×2 (09:41→21:05)
[2018-03-17] MEDS: Morphine 30 mg SR Tab PO SCH ×2 (09:42→20:30)
[2018-03-17] MEDS: Piperacillin/Tazobact 3.375 GM in Sodium Chloride 0.9% 100 ML IVPB SCH ×2 (09:44→17:44)
[2018-03-17] MEDS: Metoprolol Succinate 100 mg XL Tab PO SCH ×2 (09:45→23:32)
--- NOTE | 2018-03-17 12:03 | CP.PCM.CON ---
History of Present Illness - History of Present Illness History of Present Illness: Infectious Disease Consultation- asked to see this patient at the request of . HPI- patient is a 51 year old female with PMH of DM II, CAD , HTN who came in to ED for left lower extremity pain, redness and swelling. Patient states that she was at her sister's yesterday when she got tripped and twisted her left ankle. Patient states that she developed felt pain. patient states that she is following up with Dr. Macdonald for her left Charcot foot and bilateral foot ulcers. She states that it was planned that she will have a surgery next week. She states that since that she had fever and chills yesterday as well. Patient states that she has neuropathy and she can't feel her feet. patient denies any other pedal complaint at this time. Pt. states she feels better today. denies any fever or chills today. She also states she has chronic open wound on the right plantar foot w/o drainage . her left heel open wound is deep and she states it has been having discharge and at times malodor. PMHx: DM, HTN, hypercholesterolemia, CHF and CVS PSHx: Appendectomy, right foot TMA w/Achilles lengthening, right leg stents, coronary stent placement x2 SHx: denies ETOH, former tobacco use (1PPD for 15 years - stopped 6 years ago), denies illicit drug use Allergies: morphine Review of Systems - Review of Systems Review of Systems: ROS- fever and chills yesterday left foot redness and warmth sicne 2 days and left foor plantar open deep wound and charcot foot for whcih she has been f/u with search developer weekly deneis any KILPATRICK, denies any cough or sob, denies any chest pain, denies any abd. pain, denies any nausea or vomiting, denies any diarrhea, denies any dysurea. Past Patient History - Infectious Disease Hx of Infectious Diseases: None - Tetanus Immunizations Tetanus Immunization: Unknown - Past Medical History & Family History Past Medical History?: Yes - Past Social History Smoking Status: Former Smoker Home Situation {Lives}: With Family - CARDIAC Hx Congestive Heart Failure: No Hx Hypercholesterolemia: Yes Hx Hypertension: Yes Hx Peripheral Edema: Yes - PULMONARY Hx Chronic Obstructive Pulmonary Disease (COPD): No - NEUROLOGICAL Hx Seizures: No - HEENT Hx HEENT Problems: No - RENAL Hx Chronic Kidney Disease: No - ENDOCRINE/METABOLIC Hx Diabetes Mellitus Type 2: Yes Hx Hypothyroidism: No - HEMATOLOGICAL/ONCOLOGICAL Hx Anemia: Yes - INTEGUMENTARY Hx Dermatological Problems: No - MUSCULOSKELETAL/RHEUMATOLOGICAL Hx Arthritis: Yes Hx Falls: No Hx Rheumatoid Arthritis: No - GASTROINTESTINAL Hx Gastrointestinal Disorders: No - GENITOURINARY/GYNECOLOGICAL Hx Sexually Transmitted Disorders: No - PSYCHIATRIC Hx Anxiety: Yes Hx Depression: Yes Hx Substance Use: No - SURGICAL HISTORY Hx Appendectomy: Yes Hx Coronary Stent: Yes - ANESTHESIA Hx Anesthesia: Yes Hx Anesthesia Reactions: Yes (CAN'T BREATH-ADMITTED TO ICU) Hx Malignant Hyperthermia: No Meds Allergies/Adverse Reactions: Allergies Allergy/AdvReac Type Severity Reaction Status Date / Time No Known Allergies Allergy Verified 03/17/18 04:21 - Medications Medications: Current Medications Alprazolam (Xanax) 0.25 mg PO BID PRN PRN Reason: Anxiety Stop: 03/24/18 03:56 Amlodipine Besylate (Norvasc) 10 mg PO DAILY [facility] Last Admin: 03/17/18 09:45 Dose: 10 mg Aspirin (Ecotrin) 81 mg PO DAILY [facility] Last Admin: 03/17/18 09:44 Dose: 81 mg Atorvastatin Calcium (Lipitor) 40 mg PO HS [facility] Clonidine HCl (Catapres) 0.2 mg PO Q12 [facility] Last Admin: 03/17/18 09:44 Dose: 0.2 mg Clopidogrel Bisulfate (Plavix) 75 mg PO DAILY [facility] Last Admin: 03/17/18 09:44 Dose: 75 mg Cyanocobalamin (Vitamin B12 1000 Mcg Tab) 1,000 mcg PO DAILY [facility] Last Admin: 03/17/18 09:44 Dose: 1,000 mcg Dextrose (Dextrose 50% Inj) 0 ml IV STAT PRN; Protocol PRN Reason: Hypoglycemia Protocol Dextrose (Glutose 15) 0 gm PO ONCE PRN; Protocol PRN Reason: Hypoglycemia Protocol Glucagon (Glucagen Diagnostic Kit) 0 mg IM STAT PRN; Protocol PRN Reason: Hypoglycemia Protocol Vancomycin HCl 500 mg/ Sodium (Chloride) 100 mls @ 100 mls/hr IVPB Q12 [facility] PRN Reason: Protocol Piperacillin Sod/Tazobactam (Sod 3.375 gm/ Sodium Chloride) 100 mls @ 100 mls/ hr IVPB Q8 [facility] PRN Reason: Protocol Last Admin: 03/17/18 09:44 Dose: 100 mls/hr Insulin Detemir (Levemir) 80 units SC HS [facility] Insulin Human Lispro (Humalog) 30 units SC TID [facility] Last Admin: 03/17/18 08:23 Dose: 30 units Insulin Human Regular (Humulin R) 0 units SC ACHS [facility] PRN Reason: Protocol Last Admin: 03/17/18 07:25 Dose: Not Given Isosorbide Mononitrate (Imdur) 60 mg PO DAILY [facility] Last Admin: 03/17/18 09:44 Dose: 60 mg Metoprolol Succinate (Toprol Xl) 200 mg PO Q12 [facility] Last Admin: 03/17/18 09:45 Dose: 200 mg Morphine Sulfate (Morphine Extended Release Tab) 30 mg PO Q12 [facility] Last Admin: 03/17/18 09:42 Dose: 30 mg Oxycodone HCl (Oxycodone Immediate Release Tab) 30 mg PO Q6H PRN PRN Reason: Pain, severe (8-10) Last Admin: 03/17/18 09:41 Dose: 30 mg Physical Exam - Constitutional Appears: No Acute Distress - Head Exam Head Exam: ATRAUMATIC - Eye Exam Eye Exam: EOMI - ENT Exam ENT Exam: Normal Oropharynx - Neck Exam Neck exam: Positive for: Full Rom - Respiratory Exam Respiratory Exam: Clear to Auscultation Bilateral, NORMAL BREATHING PATTERN - Cardiovascular Exam Cardiovascular Exam: RRR, +S1, +S2 - GI/Abdominal Exam GI & Abdominal Exam: Normal Bowel Sounds, Soft Additional comments: NT, ND - Extremities Exam Additional comments: left foot charcot foot .plantar region with 2 x 2 cm deep round open wound with yellow discharge, no malodor minimal surrounding erythema right foot TMA right foot plantar dry 1 x 1 cm but open more superficial wound , no discharge - Neurological Exam Neurological exam: Alert, Oriented x3 Results - Vital Signs Recent Vital Signs: Last Vital Signs Temp 97.9 F 03/17/18 07:50 Pulse 80 03/17/18 07:50 Resp 19 03/17/18 07:50 BP 143/70 03/17/18 07:50 Pulse Ox 95 03/17/18 07:50 - Labs Result Diagrams: 03/17/18 00:08 03/17/18 00:08 Labs: Laboratory Results - last 24 hr 03/16/18 03/16/18 03/17/18 00:26 23:13 00:08 WBC 11.1 H D RBC 3.97 Hgb 10.6 L Hct 32.1 L MCV 80.8 L MCH 26.7 L MCHC 33.0 RDW 15.9 H Plt Count 357 D MPV 8.2 Neut % (Auto) 89.9 H Lymph % (Auto) 4.9 L [place] % (Auto) 4.0 Eos % (Auto) 0.1 Baso % (Auto) 1.1 Neut # (Auto) 9.9 H Lymph # (Auto) 0.5 L [place] # (Auto) 0.4 Eos # (Auto) 0.0 Baso # (Auto) 0.1 Neutrophils % (Manual) 95 H Lymphocytes % (Manual) 3 L Monocytes % (Manual) 2 Platelet Estimate Normal Polychromasia Slight Anisocytosis (manual) Slight ESR 114 H PT INR APTT pO2 34 VBG pH 7.45 H VBG pCO2 43 VBG HCO3 28.2 VBG Total CO2 31.2 H VBG O2 Sat (Calc) 70.6 H VBG Base Excess 5.2 H VBG Potassium 4.6 Sodium 134.0 Chloride 97.0 L Glucose 293 H Lactate 1.2 FiO2 21.0 Potassium Carbon Dioxide Anion Gap BUN Creatinine Est GFR ( Amer) Est GFR (Non-Af Amer) POC Glucose (mg/dL) 237 H Random Glucose Calcium Phosphorus Magnesium Total Bilirubin AST ALT Alkaline Phosphatase Total Protein Albumin Globulin Albumin/Globulin Ratio Venous Blood Potassium 4.6 Urine Color Urine Clarity Urine pH Ur Specific [place] Urine Protein Urine Glucose (UA) Urine Ketones Urine Blood Urine Nitrate Urine Bilirubin Urine Urobilinogen Ur Leukocyte Esterase Urine RBC (Auto) Urine Microscopic WBC Ur Squamous Epith Cells Urine Bacteria Hyaline Casts 03/17/18 03/17/18 03/17/18 00:08 00:08 05:26 WBC RBC Hgb Hct MCV MCH MCHC RDW Plt Count MPV Neut % (Auto) Lymph % (Auto) [place] % (Auto) Eos % (Auto) Baso % (Auto) Neut # (Auto) Lymph # (Auto) [place] # (Auto) Eos # (Auto) Baso # (Auto) Neutrophils % (Manual) Lymphocytes % (Manual) Monocytes % (Manual) Platelet Estimate Polychromasia Anisocytosis (manual) ESR PT 12.3 INR 1.1 APTT 31.5 pO2 VBG pH VBG pCO2 VBG HCO3 VBG Total CO2 VBG O2 Sat (Calc) VBG Base Excess VBG Potassium Sodium 136 Chloride 96 L Glucose Lactate FiO2 Potassium 5.1 H Carbon Dioxide 24 Anion Gap 21 H BUN 60 H Creatinine 1.3 H Est GFR ( Amer) 52 Est GFR (Non-Af Amer) 43 POC Glucose (mg/dL) > 500 H* Random Glucose 284 H Calcium 10.0 Phosphorus 2.9 Magnesium 2.2 Total Bilirubin 1.6 H AST 40 H D ALT 19 Alkaline Phosphatase 155 H D Total Protein 8.8 H Albumin 4.4 Globulin 4.4 H Albumin/Globulin Ratio 1.0 Venous Blood Potassium Urine Color Urine Clarity Urine pH Ur Specific [place] Urine Protein Urine Glucose (UA) Urine Ketones Urine Blood Urine Nitrate Urine Bilirubin Urine Urobilinogen Ur Leukocyte Esterase Urine RBC (Auto) Urine Microscopic WBC Ur Squamous Epith Cells Urine Bacteria Hyaline Casts 03/17/18 03/17/18 03/17/18 05:30 05:41 06:45 WBC RBC Hgb Hct MCV MCH MCHC RDW Plt Count MPV Neut % (Auto) Lymph % (Auto) [place] % (Auto) Eos % (Auto) Baso % (Auto) Neut # (Auto) Lymph # (Auto) [place] # (Auto) Eos # (Auto) Baso # (Auto) Neutrophils % (Manual) Lymphocytes % (Manual) Monocytes % (Manual) Platelet Estimate Polychromasia Anisocytosis (manual) ESR PT INR APTT pO2 VBG pH VBG pCO2 VBG HCO3 VBG Total CO2 VBG O2 Sat (Calc) VBG Base Excess VBG Potassium Sodium Chloride Glucose Lactate FiO2 Potassium Carbon Dioxide Anion Gap BUN Creatinine Est GFR ( Amer) Est GFR (Non-Af Amer) POC Glucose (mg/dL) > 500 H* > 500 H* Random Glucose Calcium Phosphorus Magnesium Total Bilirubin AST ALT Alkaline Phosphatase Total Protein Albumin Globulin Albumin/Globulin Ratio Venous Blood Potassium Urine Color Yellow Urine Clarity Cloudy Urine pH 5.0 Ur Specific [place] 1.016 Urine Protein >=500 Urine Glucose (UA) >=500 Urine Ketones Trace Urine Blood Moderate Urine Nitrate Negative Urine Bilirubin Negative Urine Urobilinogen 0.2-1.0 Ur Leukocyte Esterase Neg Urine RBC (Auto) < 1 Urine Microscopic WBC 3 Ur Squamous Epith Cells 7 H Urine Bacteria Many H Hyaline Casts 0-2 03/17/18 03/17/18 07:40 10:58 WBC RBC Hgb Hct MCV MCH MCHC RDW Plt Count MPV Neut % (Auto) Lymph % (Auto) [place] % (Auto) Eos % (Auto) Baso % (Auto) Neut # (Auto) Lymph # (Auto) [place] # (Auto) Eos # (Auto) Baso # (Auto) Neutrophils % (Manual) Lymphocytes % (Manual) Monocytes % (Manual) Platelet Estimate Polychromasia Anisocytosis (manual) ESR PT INR APTT pO2 VBG pH VBG pCO2 VBG HCO3 VBG Total CO2 VBG O2 Sat (Calc) VBG Base Excess VBG Potassium Sodium Chloride Glucose Lactate FiO2 Potassium Carbon Dioxide Anion Gap BUN Creatinine Est GFR ( Amer) Est GFR (Non-Af Amer) POC Glucose (mg/dL) 470 H* 392 H Random Glucose Calcium Phosphorus Magnesium Total Bilirubin AST ALT Alkaline Phosphatase Total Protein Albumin Globulin Albumin/Globulin Ratio Venous Blood Potassium Urine Color Urine Clarity Urine pH Ur Specific [place] Urine Protein Urine Glucose (UA) Urine Ketones Urine Blood Urine Nitrate Urine Bilirubin Urine Urobilinogen Ur Leukocyte Esterase Urine RBC (Auto) Urine Microscopic WBC Ur Squamous Epith Cells Urine Bacteria Hyaline Casts Laboratory Results - last 72 hr 03/16/18 03/16/18 03/17/18 00:26 23:13 00:08 WBC 11.1 H D RBC 3.97 Hgb 10.6 L Hct 32.1 L MCV 80.8 L MCH 26.7 L MCHC 33.0 RDW 15.9 H Plt Count 357 D MPV 8.2 Neut % (Auto) 89.9 H Lymph % (Auto) 4.9 L [place] % (Auto) 4.0 Eos % (Auto) 0.1 Baso % (Auto) 1.1 Neut # (Auto) 9.9 H Lymph # (Auto) 0.5 L [place] # (Auto) 0.4 Eos # (Auto) 0.0 Baso # (Auto) 0.1 Neutrophils % (Manual) 95 H Lymphocytes % (Manual) 3 L Monocytes % (Manual) 2 Platelet Estimate Normal Polychromasia Slight Anisocytosis (manual) Slight ESR 114 H PT INR APTT pO2 34 VBG pH 7.45 H VBG pCO2 43 VBG HCO3 28.2 VBG Total CO2 31.2 H VBG O2 Sat (Calc) 70.6 H VBG Base Excess 5.2 H VBG Potassium 4.6 Sodium 134.0 Chloride 97.0 L Glucose 293 H Lactate 1.2 FiO2 21.0 Potassium Carbon Dioxide Anion Gap BUN Creatinine Est GFR ( Amer) Est GFR (Non-Af Amer) POC Glucose (mg/dL) 237 H Random Glucose Calcium Phosphorus Magnesium Total Bilirubin AST ALT Alkaline Phosphatase Total Protein Albumin Globulin Albumin/Globulin Ratio Venous Blood Potassium 4.6 Urine Color Urine Clarity Urine pH Ur Specific [place] Urine Protein Urine Glucose (UA) Urine Ketones Urine Blood Urine Nitrate Urine Bilirubin Urine Urobilinogen Ur Leukocyte Esterase Urine RBC (Auto) Urine Microscopic WBC Ur Squamous Epith Cells Urine Bacteria Hyaline Casts 03/17/18 03/17/18 03/17/18 00:08 00:08 05:26 WBC RBC Hgb Hct MCV MCH MCHC RDW Plt Count MPV Neut % (Auto) Lymph % (Auto) [place] % (Auto) Eos % (Auto) Baso % (Auto) Neut # (Auto) Lymph # (Auto) [place] # (Auto) Eos # (Auto) Baso # (Auto) Neutrophils % (Manual) Lymphocytes % (Manual) Monocytes % (Manual) Platelet Estimate Polychromasia Anisocytosis (manual) ESR PT 12.3 INR 1.1 APTT 31.5 pO2 VBG pH VBG pCO2 VBG HCO3 VBG Total CO2 VBG O2 Sat (Calc) VBG Base Excess VBG Potassium Sodium 136 Chloride 96 L Glucose Lactate FiO2 Potassium 5.1 H Carbon Dioxide 24 Anion Gap 21 H BUN 60 H Creatinine 1.3 H Est GFR ( Amer) 52 Est GFR (Non-Af Amer) 43 POC Glucose (mg/dL) > 500 H* Random Glucose 284 H Calcium 10.0 Phosphorus 2.9 Magnesium 2.2 Total Bilirubin 1.6 H AST 40 H D ALT 19 Alkaline Phosphatase 155 H D Total Protein 8.8 H Albumin 4.4 Globulin 4.4 H Albumin/Globulin Ratio 1.0 Venous Blood Potassium Urine Color Urine Clarity Urine pH Ur Specific [place] Urine Protein Urine Glucose (UA) Urine Ketones Urine Blood Urine Nitrate Urine Bilirubin Urine Urobilinogen Ur Leukocyte Esterase Urine RBC (Auto) Urine Microscopic WBC Ur Squamous Epith Cells Urine Bacteria Hyaline Casts 03/17/18 03/17/18 03/17/18 05:30 05:41 06:45 WBC RBC Hgb Hct MCV MCH MCHC RDW Plt Count MPV Neut % (Auto) Lymph % (Auto) [place] % (Auto) Eos % (Auto) Baso % (Auto) Neut # (Auto) Lymph # (Auto) [place] # (Auto) Eos # (Auto) Baso # (Auto) Neutrophils % (Manual) Lymphocytes % (Manual) Monocytes % (Manual) Platelet Estimate Polychromasia Anisocytosis (manual) ESR PT INR APTT pO2 VBG pH VBG pCO2 VBG HCO3 VBG Total CO2 VBG O2 Sat (Calc) VBG Base Excess VBG Potassium Sodium Chloride Glucose Lactate FiO2 Potassium Carbon Dioxide Anion Gap BUN Creatinine Est GFR ( Amer) Est GFR (Non-Af Amer) POC Glucose (mg/dL) > 500 H* > 500 H* Random Glucose Calcium Phosphorus Magnesium Total Bilirubin AST ALT Alkaline Phosphatase Total Protein Albumin Globulin Albumin/Globulin Ratio Venous Blood Potassium Urine Color Yellow Urine Clarity Cloudy Urine pH 5.0 Ur Specific [place] 1.016 Urine Protein >=500 Urine Glucose (UA) >=500 Urine Ketones Trace Urine Blood Moderate Urine Nitrate Negative Urine Bilirubin Negative Urine Urobilinogen 0.2-1.0 Ur Leukocyte Esterase Neg Urine RBC (Auto) < 1 Urine Microscopic WBC 3 Ur Squamous Epith Cells 7 H Urine Bacteria Many H Hyaline Casts 0-2 03/17/18 03/17/18 07:40 10:58 WBC RBC Hgb Hct MCV MCH MCHC RDW Plt Count MPV Neut % (Auto) Lymph % (Auto) [place] % (Auto) Eos % (Auto) Baso % (Auto) Neut # (Auto) Lymph # (Auto) [place] # (Auto) Eos # (Auto) Baso # (Auto) Neutrophils % (Manual) Lymphocytes % (Manual) Monocytes % (Manual) Platelet Estimate Polychromasia Anisocytosis (manual) ESR PT INR APTT pO2 VBG pH VBG pCO2 VBG HCO3 VBG Total CO2 VBG O2 Sat (Calc) VBG Base Excess VBG Potassium Sodium Chloride Glucose Lactate FiO2 Potassium Carbon Dioxide Anion Gap BUN Creatinine Est GFR ( Amer) Est GFR (Non-Af Amer) POC Glucose (mg/dL) 470 H* 392 H Random Glucose Calcium Phosphorus Magnesium Total Bilirubin AST ALT Alkaline Phosphatase Total Protein Albumin Globulin Albumin/Globulin Ratio Venous Blood Potassium Urine Color Urine Clarity Urine pH Ur Specific [place] Urine Protein Urine Glucose (UA) Urine Ketones Urine Blood Urine Nitrate Urine Bilirubin Urine Urobilinogen Ur Leukocyte Esterase Urine RBC (Auto) Urine Microscopic WBC Ur Squamous Epith Cells Urine Bacteria Hyaline Casts Accession No. : [id number] Patient Name / ID : PITO [id number] / [id number] Exam Date : 03/16/2018 23:23:16 ( Approved ) Study Comment : Sex / Age : F / 52Y Creator : Mika Duenas MD Dictator : Mika Duenas MD Pmo Business Analyst : Commercial Interior Designer : Mika Duenas MD Approver2 : Report Date : 03/17/2018 12:13:13 My Comment : Date of service: 03/16/2018 PROCEDURE: Bilateral Feet Radiographs. HISTORY: possible osteo COMPARISON: Right foot radiographs dated 11/11/2016 ; no prior imaging of the left foot. FINDINGS: BONES: Right Foot: Prior proximal transmetatarsal amputation with more proximal amputation of the 5th digit. Stable appearance of small ossific fragments in the surgical bed, likely heterotopic ossification. Heterogeneous attenuation of the osseous structures. Left Foot: No acute fracture. JOINTS: Right Foot: Joint space narrowing in the forefoot. Left Foot: Tarsometatarsal subluxation/dislocation/disorganization. SOFT TISSUES: Right Foot: Questionable subcutaneous gas versus subcutaneous fat. Left Foot: Normal. OTHER FINDINGS: Bilateral Achilles enthesophytes and inferior plantar calcaneal spurs. IMPRESSION: Questionable right foot subcutaneous gas versus subcutaneous fat. No acute fracture or periosteal reaction. Left Charcot foot. Assessment & Plan (1) Cellulitis of left foot Status: Acute (2) Charcot foot due to diabetes mellitus Status: Acute (3) Diabetic foot ulcer Status: Acute - Assessment and Plan (Free Text) Assessment: A/P- 52 year old female with CAD, HTN, DM II admitted with left plantar foot open wound and surrounding erythema . afebrile minimal leukocytosis must r/o OM as the wound is deep and chronic . plan- check wound cx. check ESR. check MRI of the left foot r/o OM. advise to continue with empiric abx namely vanco and zosyn (renal dose ) for diabetic foot ulcer / unhealed wound. keep vanco trough <15. wound care as per podiatry team. all above d/w patient and her questions were answered and she agrees with above plan of care. Pt. seen and examined with the podiatry resident. Thank you for allowing me to take part in the care of this patient.
--- NOTE | 2018-03-17 12:14 | RAD ---
Date of service: 03/16/2018 PROCEDURE: Bilateral Feet Radiographs. HISTORY: possible osteo COMPARISON: Right foot radiographs dated 11/11/2016 ; no prior imaging of the left foot. FINDINGS: BONES: Right Foot: Prior proximal transmetatarsal amputation with more proximal amputation of the 5th digit. Stable appearance of small ossific fragments in the surgical bed, likely heterotopic ossification. Heterogeneous attenuation of the osseous structures. Left Foot: No acute fracture. JOINTS: Right Foot: Joint space narrowing in the forefoot. Left Foot: Tarsometatarsal subluxation/dislocation/disorganization. SOFT TISSUES: Right Foot: Questionable subcutaneous gas versus subcutaneous fat. Left Foot: Normal. OTHER FINDINGS: Bilateral Achilles enthesophytes and inferior plantar calcaneal spurs. IMPRESSION: Questionable right foot subcutaneous gas versus subcutaneous fat. No acute fracture or periosteal reaction. Left Charcot foot.
--- NOTE | 2018-03-17 16:10 | CP.PCM.PN ---
Subjective - Date & Time of Evaluation Date of Evaluation: 03/17/18 Time of Evaluation: 16:08 - Subjective Subjective: Podiatry progress note for attending Dr. Macdonald 51 year old female patient was seen and evaluated at bedside for left lower extremity pain, redness and swelling. Patient is seen resting comfortably along with her family member. AAOx3 and in NAD. Patient denies any other pedal complaint at this time. Patient denies f/n/v/sob, admits to loss of appetite. Dressig seen to be clean, dry and intact. Objective - Vital Signs/Intake and Output Vital Signs (last 24 hours): Temp Pulse Resp BP Pulse Ox 97.9 F 80 19 143/70 95 03/17/18 07:50 03/17/18 07:50 03/17/18 07:50 03/17/18 07:50 03/17/18 07:50 - Medications Medications: Current Medications Alprazolam (Xanax) 0.25 mg PO BID PRN PRN Reason: Anxiety Stop: 03/24/18 03:56 Amlodipine Besylate (Norvasc) 10 mg PO DAILY [facility] Last Admin: 03/17/18 09:45 Dose: 10 mg Aspirin (Ecotrin) 81 mg PO DAILY [facility] Last Admin: 03/17/18 09:44 Dose: 81 mg Atorvastatin Calcium (Lipitor) 40 mg PO HS [facility] Clonidine HCl (Catapres) 0.2 mg PO Q12 [facility] Last Admin: 03/17/18 09:44 Dose: 0.2 mg Clopidogrel Bisulfate (Plavix) 75 mg PO DAILY [facility] Last Admin: 03/17/18 09:44 Dose: 75 mg Cyanocobalamin (Vitamin B12 1000 Mcg Tab) 1,000 mcg PO DAILY [facility] Last Admin: 03/17/18 09:44 Dose: 1,000 mcg Dextrose (Dextrose 50% Inj) 0 ml IV STAT PRN; Protocol PRN Reason: Hypoglycemia Protocol Dextrose (Glutose 15) 0 gm PO ONCE PRN; Protocol PRN Reason: Hypoglycemia Protocol Glucagon (Glucagen Diagnostic Kit) 0 mg IM STAT PRN; Protocol PRN Reason: Hypoglycemia Protocol Vancomycin HCl 500 mg/ Sodium (Chloride) 100 mls @ 100 mls/hr IVPB Q12 [facility] PRN Reason: Protocol Piperacillin Sod/Tazobactam (Sod 3.375 gm/ Sodium Chloride) 100 mls @ 100 mls/ hr IVPB Q8 [facility] PRN Reason: Protocol Last Admin: 03/17/18 09:44 Dose: 100 mls/hr Insulin Detemir (Levemir) 80 units SC HS [facility] Insulin Human Lispro (Humalog) 30 units SC TID [facility] Last Admin: 03/17/18 12:16 Dose: 30 units Insulin Human Regular (Humulin R) 0 units SC ACHS [facility] PRN Reason: Protocol Last Admin: 03/17/18 12:20 Dose: 6 units Isosorbide Mononitrate (Imdur) 60 mg PO DAILY [facility] Last Admin: 03/17/18 09:44 Dose: 60 mg Metoprolol Succinate (Toprol Xl) 200 mg PO Q12 [facility] Last Admin: 03/17/18 09:45 Dose: 200 mg Morphine Sulfate (Morphine Extended Release Tab) 30 mg PO Q12 [facility] Last Admin: 03/17/18 09:42 Dose: 30 mg Oxycodone HCl (Oxycodone Immediate Release Tab) 30 mg PO Q6H PRN PRN Reason: Pain, severe (8-10) Last Admin: 03/17/18 09:41 Dose: 30 mg - Labs Labs: 03/17/18 00:08 03/17/18 00:08 PT 12.3 Seconds (9.8-13.1) 03/17/18 00:08 INR 1.1 03/17/18 00:08 APTT 31.5 Seconds (25.6-37.1) 03/17/18 00:08 - Constitutional Appears: Well, Non-toxic, No Acute Distress - Head Exam Head Exam: ATRAUMATIC, NORMOCEPHALIC - Extremities Exam Additional comments: ilateral LE focused examination: Vasc: DP/PT pulses palpable 1/4. Temperature gradient warm to warmer from proximal to distal on the left and warm to warm on the right. Cap refill time < 3 sec to all digits; +1 pitting edema noted at the distal medial leg on the left side. Neuro: Protective sensation grossly diminished bilaterally. Derm: Diffuse diabetic dermopathy noted to leg and ankle region. Hyperpigmented , thickened skin right>left. An ulcer present in the plantar aspect of the left midfoot measures 2.4 X 1.5 X 0.3 cm. Wound margins are hyper keratotic, base is granular 100%. No malodor, Minimal serous drainage. no tracking, undermining or probing to bone. An ulcer measures 1.4cm x 0.8cm x 0.2cm ulceration noted to plantar midfoot on the right. Wound margins are hyper keratotic, base is granular 100%. No malodor , No drainage. no tracking, undermining or probing to bone. MSK: Pain on palpating the left perimalleolar area lateral > medial. Pain with inversion of the left ankle. Muscle power couldn't be assessed on the left side due to guarding. - Neurological Exam Neurological Exam: Alert, Awake, Oriented x3 - Psychiatric Exam Psychiatric exam: Normal Affect, Normal Mood - Skin Skin Exam: Normal Color Assessment and Plan - Assessment and Plan (Free Text) Assessment: 52 y/o F patient seen and evaluated at the ED for left Charcot foot flare/ cellulitis. and pain in her left ankle. Plan: Patient seen and evaluated at bedside in ED Discussed patient in details with attending Dr. Macdonald Labs, vitals and charts reviewed; Afebrile, WBC 11.1 X-rays of the B/L foot reviewed: - Abnormal osseous morphology consisted with Charcot arthropathy on the left side. - TMA on the right side Wounds cleaned using saline and dressing applied using bacitracin, DSD; Posterior splint applied to the left foot Wound culture pending CT of left lower extremity ordered Patient instructed to keep her leg elevated. Patient to stay NWB to the left lower extremity. Patient demonstrated verbal understanding Podiatry will Follow up the patient while in house.
--- NOTE | 2018-03-17 20:26 | HP ---
Copied To: Mario Malagon MD Attending MD: Mario Malagon MD HISTORY OF PRESENT ILLNESS: Ms. Jones is a 52-year-old female who was referred to the emergency room by her primary care doctor (memorial counselor) because of pain, redness, swelling of the left lower extremity several days prior to presentation. She indicated that [place] and came to the emergency room because of pain and swelling and redness of the lower extremity with some draining discharge. She has a past medical history of Charcot's foot and recurrent ulceration of both lower extremities, left worse than right. She has had multiple surgeries on left foot. PAST MEDICAL HISTORY: Remarkable for diabetes, hypertension, hyperlipidemia, congestive heart failure and cerebrovascular disease. SOCIAL HISTORY: She denies smoking, alcohol use or drug use. REVIEW OF SYSTEMS: Essentially remarkable for pain, drainage in the left lower extremity for which she sees a memorial counselor every week. PHYSICAL EXAMINATION: GENERAL: The patient is alert, oriented and appears to be in moderate distress because of left lower extremity pain. Vital signs: Remarkable for blood pressure of 143/70 with a pulse of 80, respiratory rate 18. She is afebrile. O2 sat is 94% on room air. Skin: Shows fair turgor. HEENT: Pupils are equal and reactive to light and accommodation. Mouth shows fair hygiene. JVP flat. Lungs: Clear. Heart: Regular. No murmurs or gallops. Abdomen: Soft, nontender. No organomegaly. Extremities: There is changes of right lower extremity. There is ulceration and drainage of left lower extremity with redness and tenderness and edema. LABORATORY DATA: WBC 11.1, hemoglobin 10.6, platelet count 357,000. Sodium 136, potassium 5.1, BUN 60, creatinine 1.3. Serum glucose greater than 500. X-ray of foot, official report pending. EKG; sinus tachycardia, possible left atrial enlargement, septal infarct, age undetermined. Chest x-ray, no acute cardiopulmonary pathology. IMPRESSION: Cellulitis of left lower extremity, history of chronic recurrent left lower extremity drainage, history of multiple lower extremity surgeries, diabetes mellitus poorly-controlled, hypertension, peripheral vascular disease, and chronic anemia. PLAN: Intravenous hydration, intravenous antibiotics. We would obtain Endocrine, Podiatry, and Infectious Disease evaluation. Analgesics will be given for pain. Further therapy will depend on findings. Mario Malagon MD
[2018-03-17] MEDS: Insulin Detemir 100 Units/ml Inj SC SCH (21:07)
[2018-03-17] MEDS ORDERED: Insulin Detemir 100 Units/ml Inj SC SCH (22:00)
[2018-03-18] MEDS: Piperacillin/Tazobact 3.375 GM in Sodium Chloride 0.9% 100 ML IVPB SCH ×2 (02:34→08:36)
[2018-03-18] MEDS: oxyCODONE 10 mg Immediate Release Tab PO PRN ×3 (05:09→23:10)
--- NOTE | 2018-03-18 05:09 | CON ---
Copied To: Yesika Vogel MD Attending MD: Yesika Vogel MD DATE: 03/17/2018 ENDOCRINOLOGY CONSULT LOCATION: Room 656. She is now being referred for diabetic evaluation and management. PAST MEDICAL HISTORY: As mentioned above, history of type 2 insulin-requiring diabetes, on a hefty insulin regimen as an outpatient with persistent glycemic fluctuations and suboptimal metabolic control. The latest A1c was 12.3% as noted. History of diabetic retinopathy, severe painful polyneuropathy in both lower extremities as noted. She also has coronary artery disease with previous coronary stent placements as noted. She also has severe peripheral arterial disease and vasculopathy and has received several stents in the right lower extremity and had a right foot transmetatarsal amputation as noted. She also has a left Charcot foot with lower extremity neuropathic ulcerations as noted. FAMILY HISTORY: Positive for hypertension, diabetes, and heart failure. SOCIAL HISTORY: The patient is a former smoker and used to smoke a pack a day for over 16 years, but quit a few years ago. She has a supportive father and family otherwise. REVIEW OF SYSTEMS: As mentioned above. Admits to generalized body weakness with episodic bouts of dizziness and lightheadedness, worse on the day of admission. Also admits to suboptimal energy level with easy fatigability and tiredness and insomnia as noted. No chest pains or palpitations, but admits to progressive shortness of breath, especially on exertion. Her oral intake has been variable with nausea, dyspepsia, vague upper abdominal pains with recent polyuria and nocturia as noted. She also admits to lower extremity painful paresthesias, especially nocturnally. PHYSICAL EXAMINATION: GENERAL: This is an average built female, in no apparent distress. VITAL SIGNS: Blood pressure of 150/90, pulse of 70 beats per minute, regular, temperature 98, respirations 20. Height is 5 feet 8 inches, weight is 215 pounds. HEENT: Head: Normocephalic. Eyes: Anicteric with pink conjunctivae. Funduscopy not possible at this time. Ears, nose, and throat, otherwise normal. NECK: Supple. Thyroid gland is normal size. No carotid bruits or any cervical adenopathy. CARDIOPULMONARY: Some adynamic precordium. S1, S2 are rapid and regular. LUNGS: Clear to auscultation. ABDOMEN: Flat, soft, with positive bowel sounds. EXTREMITIES: There is +1 bipedal edema on the left with ulcerations in both left heel and right heel as noted and the right TMA stump is healed at this time. Pulses are diminished peripherally. LABORATORY DATA: Her chemistries shows a BUN of 60, sodium 136, potassium 5.1, chloride 96, CO2 24, glucose 284, and creatinine 1.3. Her glucose levels were over 500 initially and the latest glucose is 179-392 mg/dL. ASSESSMENT: This is a 52-year-old female with uncontrolled and decompensated type 2 insulin-requiring diabetes, presenting here with neuropathic ulcerations in both plantar surfaces of both feet with underlying severe peripheral arterial disease and vasculopathy, and a left Charcot's foot as noted. She has diabetic microvascular complications of retinopathy, polyneuropathy, and now early nephropathy as noted with diabetic macrovascular complications of coronary artery disease and previous coronary stent placements with underlying severe peripheral arterial disease and vasculopathy with previous stent placements in the right lower extremity as noted. She also has a previous right transmetatarsal amputation in the right foot as noted. PLAN OF MANAGEMENT: As discussed with the patient and the staff, we will modify her current insulin regimen, but because of the variability of her oral intake, we will lower her basal and bolus insulin regimen to obviate hypoglycemia and detailed orders have been given. We will start her with Humalog given as 20 units subcu t.i.d. before meals to start today. We will also lower her basal insulin with Levemir to be given as 60 units subcu at bedtime daily as given. We will modify her coverage scale to obviate hypoglycemia and detailed orders have been given. We will obtain serial chemistries and supplement accordingly as needed. A hemoglobin A1c will be done to confirm her prior poor glycemic control and baseline thyroid function studies and lipid panel will be ordered. We will follow and advise accordingly. Yesika Vogel MD
[2018-03-18 06:46] LABS: ALBUMIN 3.6 g/dL (3.5-5.0); CALCIUM 8.9 mg/dL (8.4-10.2)
[2018-03-18] MEDS: Insulin Lispro (humaLOG) 100 Units/ml Inj SC SCH ×7 (06:51→21:45)
[2018-03-18] MEDS: Morphine 30 mg SR Tab PO SCH ×2 (08:32→21:01)
[2018-03-18] MEDS: Metoprolol Succinate 100 mg XL Tab PO SCH ×2 (08:33→20:59)
[2018-03-18 09:57] LABS: HEMOGLOBIN 8.8 g/dL (12.0-16.0); MEAN CELL VOLUME 81.4 fl (81.0-99.0); MEAN CORPUSCULAR HEMOGLOBIN 26.9 pg (27.0-31.0); RBC 3.26 Mil/uL (3.80-5.20); RED CELL DISTRIBUTION WIDTH 16.3 % (11.5-14.5); WHITE BLOOD COUNT 6.7 K/uL (4.8-10.8)
--- NOTE | 2018-03-18 10:32 | CP.PCM.PN ---
Subjective - Date & Time of Evaluation Date of Evaluation: 03/18/18 Time of Evaluation: 10:32 - Subjective Subjective: ID note- Pt. seen and examined today. she denies any fever or chills and states feels fine. Objective - Vital Signs/Intake and Output Vital Signs (last 24 hours): Temp Pulse Resp BP Pulse Ox 100.0 F H 82 19 138/68 96 03/18/18 07:47 03/18/18 08:34 03/18/18 07:47 03/18/18 08:34 03/18/18 07:47 - Medications Medications: Current Medications Acetaminophen (Tylenol 325mg Tab) 650 mg PO Q6 PRN PRN Reason: Fever 100 or greater Last Admin: 03/17/18 17:43 Dose: 650 mg Alprazolam (Xanax) 0.25 mg PO BID PRN PRN Reason: Anxiety Stop: 03/24/18 03:56 Last Admin: 03/18/18 06:37 Dose: 0.25 mg Amlodipine Besylate (Norvasc) 10 mg PO DAILY [facility] Last Admin: 03/18/18 08:34 Dose: 10 mg Aspirin (Ecotrin) 81 mg PO DAILY [facility] Last Admin: 03/18/18 08:34 Dose: 81 mg Atorvastatin Calcium (Lipitor) 40 mg PO HS [facility] Last Admin: 03/17/18 21:07 Dose: 40 mg Clonidine HCl (Catapres) 0.2 mg PO Q12 [facility] Last Admin: 03/18/18 08:34 Dose: 0.2 mg Clopidogrel Bisulfate (Plavix) 75 mg PO DAILY [facility] Last Admin: 03/18/18 08:34 Dose: 75 mg Cyanocobalamin (Vitamin B12 1000 Mcg Tab) 1,000 mcg PO DAILY [facility] Last Admin: 03/18/18 08:34 Dose: 1,000 mcg Dextrose (Dextrose 50% Inj) 0 ml IV STAT PRN; Protocol PRN Reason: Hypoglycemia Protocol Dextrose (Glutose 15) 0 gm PO ONCE PRN; Protocol PRN Reason: Hypoglycemia Protocol Glucagon (Glucagen Diagnostic Kit) 0 mg IM STAT PRN; Protocol PRN Reason: Hypoglycemia Protocol Vancomycin HCl 500 mg/ Sodium (Chloride) 100 mls @ 100 mls/hr IVPB Q12 [facility] PRN Reason: Protocol Piperacillin Sod/Tazobactam (Sod 2.25 gm/ Sodium Chloride) 100 mls @ 100 mls/ hr IVPB Q6 [facility] PRN Reason: Protocol Insulin Detemir (Levemir) 60 units SC HS [facility] Last Admin: 03/17/18 21:07 Dose: 60 u Insulin Human Lispro (Humalog) 0 units SC ACHS [facility] Last Admin: 03/18/18 06:51 Dose: Not Given Insulin Human Lispro (Humalog) 20 units SC AC [facility] Last Admin: 03/18/18 08:35 Dose: 20 units Isosorbide Mononitrate (Imdur) 60 mg PO DAILY [facility] Last Admin: 03/18/18 08:34 Dose: 60 mg Metoprolol Succinate (Toprol Xl) 200 mg PO Q12 [facility] Last Admin: 03/18/18 08:33 Dose: 200 mg Morphine Sulfate (Morphine Extended Release Tab) 30 mg PO Q12 [facility] Last Admin: 03/18/18 08:32 Dose: 30 mg Oxycodone HCl (Oxycodone Immediate Release Tab) 30 mg PO Q6H PRN PRN Reason: Pain, severe (8-10) Last Admin: 03/18/18 05:09 Dose: 30 mg - Labs Labs: - Additional Findings Additional findings: - Constitutional Appears: No Acute Distress - Head Exam Head Exam: ATRAUMATIC - Eye Exam Eye Exam: EOMI - ENT Exam ENT Exam: Normal Oropharynx - Neck Exam Neck exam: Positive for: Full Rom - Respiratory Exam Respiratory Exam: Clear to Auscultation Bilateral, NORMAL BREATHING PATTERN - Cardiovascular Exam Cardiovascular Exam: RRR, +S1, +S2 - GI/Abdominal Exam GI & Abdominal Exam: Normal Bowel Sounds, Soft Additional comments: NT, ND - Extremities Exam Additional comments: left foot charcot foot .plantar region with 2 x 2 cm deep round open wound with yellow discharge, no malodor minimal surrounding erythema right foot TMA right foot plantar dry 1 x 1 cm but open more superficial wound , no discharge - Neurological Exam Neurological exam: Alert, Oriented x 3 Laboratory Results - last 72 hr 03/16/18 03/16/18 03/17/18 00:26 23:13 00:08 WBC 11.1 H D RBC 3.97 Hgb 10.6 L Hct 32.1 L MCV 80.8 L MCH 26.7 L MCHC 33.0 RDW 15.9 H Plt Count 357 D MPV 8.2 Neut % (Auto) 89.9 H Lymph % (Auto) 4.9 L [place] % (Auto) 4.0 Eos % (Auto) 0.1 Baso % (Auto) 1.1 Neut # (Auto) 9.9 H Lymph # (Auto) 0.5 L [place] # (Auto) 0.4 Eos # (Auto) 0.0 Baso # (Auto) 0.1 Neutrophils % (Manual) 95 H Lymphocytes % (Manual) 3 L Monocytes % (Manual) 2 Platelet Estimate Normal Polychromasia Slight Anisocytosis (manual) Slight ESR 114 H PT INR APTT pO2 34 VBG pH 7.45 H VBG pCO2 43 VBG HCO3 28.2 VBG Total CO2 31.2 H VBG O2 Sat (Calc) 70.6 H VBG Base Excess 5.2 H VBG Potassium 4.6 Sodium 134.0 Chloride 97.0 L Glucose 293 H Lactate 1.2 FiO2 21.0 Potassium Carbon Dioxide Anion Gap BUN Creatinine Est GFR ( Amer) Est GFR (Non-Af Amer) POC Glucose (mg/dL) 237 H Random Glucose Hemoglobin A1c Calcium Phosphorus Magnesium Total Bilirubin AST ALT Alkaline Phosphatase Total Creatine Kinase C-Reactive Protein Total Protein Albumin Globulin Albumin/Globulin Ratio Triglycerides Cholesterol LDL Cholesterol Direct HDL Cholesterol TSH 3rd Generation Venous Blood Potassium 4.6 Urine Color Urine Clarity Urine pH Ur Specific [place] Urine Protein Urine Glucose (UA) Urine Ketones Urine Blood Urine Nitrate Urine Bilirubin Urine Urobilinogen Ur Leukocyte Esterase Urine RBC (Auto) Urine Microscopic WBC Ur Squamous Epith Cells Urine Bacteria Hyaline Casts Random Vancomycin 03/17/18 03/17/18 03/17/18 00:08 00:08 05:26 WBC RBC Hgb Hct MCV MCH MCHC RDW Plt Count MPV Neut % (Auto) Lymph % (Auto) [place] % (Auto) Eos % (Auto) Baso % (Auto) Neut # (Auto) Lymph # (Auto) [place] # (Auto) Eos # (Auto) Baso # (Auto) Neutrophils % (Manual) Lymphocytes % (Manual) Monocytes % (Manual) Platelet Estimate Polychromasia Anisocytosis (manual) ESR PT 12.3 INR 1.1 APTT 31.5 pO2 VBG pH VBG pCO2 VBG HCO3 VBG Total CO2 VBG O2 Sat (Calc) VBG Base Excess VBG Potassium Sodium 136 Chloride 96 L Glucose Lactate FiO2 Potassium 5.1 H Carbon Dioxide 24 Anion Gap 21 H BUN 60 H Creatinine 1.3 H Est GFR ( Amer) 52 Est GFR (Non-Af Amer) 43 POC Glucose (mg/dL) > 500 H* Random Glucose 284 H Hemoglobin A1c Calcium 10.0 Phosphorus 2.9 Magnesium 2.2 Total Bilirubin 1.6 H AST 40 H D ALT 19 Alkaline Phosphatase 155 H D Total Creatine Kinase C-Reactive Protein 74.50 H Total Protein 8.8 H Albumin 4.4 Globulin 4.4 H Albumin/Globulin Ratio 1.0 Triglycerides Cholesterol LDL Cholesterol Direct HDL Cholesterol TSH 3rd Generation Venous Blood Potassium Urine Color Urine Clarity Urine pH Ur Specific [place] Urine Protein Urine Glucose (UA) Urine Ketones Urine Blood Urine Nitrate Urine Bilirubin Urine Urobilinogen Ur Leukocyte Esterase Urine RBC (Auto) Urine Microscopic WBC Ur Squamous Epith Cells Urine Bacteria Hyaline Casts Random Vancomycin 03/17/18 03/17/18 03/17/18 05:30 05:41 06:45 WBC RBC Hgb Hct MCV MCH MCHC RDW Plt Count MPV Neut % (Auto) Lymph % (Auto) [place] % (Auto) Eos % (Auto) Baso % (Auto) Neut # (Auto) Lymph # (Auto) [place] # (Auto) Eos # (Auto) Baso # (Auto) Neutrophils % (Manual) Lymphocytes % (Manual) Monocytes % (Manual) Platelet Estimate Polychromasia Anisocytosis (manual) ESR PT INR APTT pO2 VBG pH VBG pCO2 VBG HCO3 VBG Total CO2 VBG O2 Sat (Calc) VBG Base Excess VBG Potassium Sodium Chloride Glucose Lactate FiO2 Potassium Carbon Dioxide Anion Gap BUN Creatinine Est GFR ( Amer) Est GFR (Non-Af Amer) POC Glucose (mg/dL) > 500 H* > 500 H* Random Glucose Hemoglobin A1c Calcium Phosphorus Magnesium Total Bilirubin AST ALT Alkaline Phosphatase Total Creatine Kinase C-Reactive Protein Total Protein Albumin Globulin Albumin/Globulin Ratio Triglycerides Cholesterol LDL Cholesterol Direct HDL Cholesterol TSH 3rd Generation Venous Blood Potassium Urine Color Yellow Urine Clarity Cloudy Urine pH 5.0 Ur Specific [place] 1.016 Urine Protein >=500 Urine Glucose (UA) >=500 Urine Ketones Trace Urine Blood Moderate Urine Nitrate Negative Urine Bilirubin Negative Urine Urobilinogen 0.2-1.0 Ur Leukocyte Esterase Neg Urine RBC (Auto) < 1 Urine Microscopic WBC 3 Ur Squamous Epith Cells 7 H Urine Bacteria Many H Hyaline Casts 0-2 Random Vancomycin 03/17/18 03/17/18 03/17/18 07:40 10:58 15:00 WBC RBC Hgb Hct MCV MCH MCHC RDW Plt Count MPV Neut % (Auto) Lymph % (Auto) [place] % (Auto) Eos % (Auto) Baso % (Auto) Neut # (Auto) Lymph # (Auto) [place] # (Auto) Eos # (Auto) Baso # (Auto) Neutrophils % (Manual) Lymphocytes % (Manual) Monocytes % (Manual) Platelet Estimate Polychromasia Anisocytosis (manual) ESR 113 H PT INR APTT pO2 VBG pH VBG pCO2 VBG HCO3 VBG Total CO2 VBG O2 Sat (Calc) VBG Base Excess VBG Potassium Sodium Chloride Glucose Lactate FiO2 Potassium Carbon Dioxide Anion Gap BUN Creatinine Est GFR ( Amer) Est GFR (Non-Af Amer) POC Glucose (mg/dL) 470 H* 392 H Random Glucose Hemoglobin A1c Calcium Phosphorus Magnesium Total Bilirubin AST ALT Alkaline Phosphatase Total Creatine Kinase C-Reactive Protein Total Protein Albumin Globulin Albumin/Globulin Ratio Triglycerides Cholesterol LDL Cholesterol Direct HDL Cholesterol TSH 3rd Generation Venous Blood Potassium Urine Color Urine Clarity Urine pH Ur Specific [place] Urine Protein Urine Glucose (UA) Urine Ketones Urine Blood Urine Nitrate Urine Bilirubin Urine Urobilinogen Ur Leukocyte Esterase Urine RBC (Auto) Urine Microscopic WBC Ur Squamous Epith Cells Urine Bacteria Hyaline Casts Random Vancomycin 03/17/18 03/17/18 03/18/18 16:06 21:03 05:25 WBC RBC Hgb Hct MCV MCH MCHC RDW Plt Count MPV Neut % (Auto) Lymph % (Auto) [place] % (Auto) Eos % (Auto) Baso % (Auto) Neut # (Auto) Lymph # (Auto) [place] # (Auto) Eos # (Auto) Baso # (Auto) Neutrophils % (Manual) Lymphocytes % (Manual) Monocytes % (Manual) Platelet Estimate Polychromasia Anisocytosis (manual) ESR PT INR APTT pO2 VBG pH VBG pCO2 VBG HCO3 VBG Total CO2 VBG O2 Sat (Calc) VBG Base Excess VBG Potassium Sodium 133 Chloride 94 L Glucose Lactate FiO2 Potassium 4.6 Carbon Dioxide 29 Anion Gap 15 BUN 65 H Creatinine 2.5 H Est GFR ( Amer) 24 Est GFR (Non-Af Amer) 20 POC Glucose (mg/dL) 179 H 234 H Random Glucose 304 H Hemoglobin A1c Calcium 8.9 Phosphorus 3.7 Magnesium 2.1 Total Bilirubin 0.5 AST 27 ALT 21 Alkaline Phosphatase 128 H Total Creatine Kinase C-Reactive Protein Total Protein 7.1 Albumin 3.6 Globulin 3.5 Albumin/Globulin Ratio 1.0 Triglycerides 338 H Cholesterol 189 LDL Cholesterol Direct 76 HDL Cholesterol 26 L TSH 3rd Generation 2.85 Venous Blood Potassium Urine Color Urine Clarity Urine pH Ur Specific [place] Urine Protein Urine Glucose (UA) Urine Ketones Urine Blood Urine Nitrate Urine Bilirubin Urine Urobilinogen Ur Leukocyte Esterase Urine RBC (Auto) Urine Microscopic WBC Ur Squamous Epith Cells Urine Bacteria Hyaline Casts Random Vancomycin 03/18/18 03/18/18 03/18/18 05:25 06:00 06:23 WBC RBC Hgb Hct MCV MCH MCHC RDW Plt Count MPV Neut % (Auto) Lymph % (Auto) [place] % (Auto) Eos % (Auto) Baso % (Auto) Neut # (Auto) Lymph # (Auto) [place] # (Auto) Eos # (Auto) Baso # (Auto) Neutrophils % (Manual) Lymphocytes % (Manual) Monocytes % (Manual) Platelet Estimate Polychromasia Anisocytosis (manual) ESR PT INR APTT pO2 VBG pH VBG pCO2 VBG HCO3 VBG Total CO2 VBG O2 Sat (Calc) VBG Base Excess VBG Potassium Sodium Chloride Glucose Lactate FiO2 Potassium Carbon Dioxide Anion Gap BUN Creatinine Est GFR ( Amer) Est GFR (Non-Af Amer) POC Glucose (mg/dL) 296 H Random Glucose Hemoglobin A1c 12.5 H D Calcium Phosphorus Magnesium Total Bilirubin AST ALT Alkaline Phosphatase Total Creatine Kinase 119 C-Reactive Protein Total Protein Albumin Globulin Albumin/Globulin Ratio Triglycerides Cholesterol LDL Cholesterol Direct HDL Cholesterol TSH 3rd Generation Venous Blood Potassium Urine Color Urine Clarity Urine pH Ur Specific [place] Urine Protein Urine Glucose (UA) Urine Ketones Urine Blood Urine Nitrate Urine Bilirubin Urine Urobilinogen Ur Leukocyte Esterase Urine RBC (Auto) Urine Microscopic WBC Ur Squamous Epith Cells Urine Bacteria Hyaline Casts Random Vancomycin 03/18/18 03/18/18 03/18/18 09:47 10:54 11:04 WBC 6.7 RBC 3.26 L Hgb 8.8 L Hct 26.6 L MCV 81.4 MCH 26.9 L MCHC 33.0 RDW 16.3 H Plt Count 305 MPV Neut % (Auto) Lymph % (Auto) [place] % (Auto) Eos % (Auto) Baso % (Auto) Neut # (Auto) Lymph # (Auto) [place] # (Auto) Eos # (Auto) Baso # (Auto) Neutrophils % (Manual) Lymphocytes % (Manual) Monocytes % (Manual) Platelet Estimate Polychromasia Anisocytosis (manual) ESR PT INR APTT pO2 VBG pH VBG pCO2 VBG HCO3 VBG Total CO2 VBG O2 Sat (Calc) VBG Base Excess VBG Potassium Sodium Chloride Glucose Lactate FiO2 Potassium Carbon Dioxide Anion Gap BUN Creatinine Est GFR ( Amer) Est GFR (Non-Af Amer) POC Glucose (mg/dL) 395 H Random Glucose Hemoglobin A1c Calcium Phosphorus Magnesium Total Bilirubin AST ALT Alkaline Phosphatase Total Creatine Kinase C-Reactive Protein Total Protein Albumin Globulin Albumin/Globulin Ratio Triglycerides Cholesterol LDL Cholesterol Direct HDL Cholesterol TSH 3rd Generation Venous Blood Potassium Urine Color Urine Clarity Urine pH Ur Specific [place] Urine Protein Urine Glucose (UA) Urine Ketones Urine Blood Urine Nitrate Urine Bilirubin Urine Urobilinogen Ur Leukocyte Esterase Urine RBC (Auto) Urine Microscopic WBC Ur Squamous Epith Cells Urine Bacteria Hyaline Casts Random Vancomycin < 5.0 Microbiology 03/17/18 00:08 Foot - Left Gram Stain - Final 03/17/18 00:08 Foot - Left Wound Culture - Final Corynebacterium Species 03/17/18 05:30 Urine Urine Culture - Final No Growth (<1,000 CFU/ML) 03/16/18 00:25 Blood Blood Culture - Preliminary NO GROWTH AFTER 24 HOURS 03/17/18 00:05 Blood Blood Culture - Preliminary NO GROWTH AFTER 24 HOURS Assessment and Plan (1) Cellulitis of left foot Status: Acute (2) Charcot foot due to diabetes mellitus Status: Acute (3) Diabetic foot ulcer Status: Acute - Assessment and Plan (Free Text) Assessment: A/P- 52 year old female with CAD, HTN, DM II admitted with left plantar foot open wound and surrounding erythema . afebrile minimal leukocytosis has resolved. acute renal insufficinecy blood cx- neg x 2 foot wound cx- corynebacterium CT report- pending High ESR vanco trough <5 plan- advise to continue with renal dose zosyn. day #2 in light of renal insufficinecy advise to hold vanco. start daptomycin 4 mg/kg q48 hours. check CPK while on dapto. f/u CT of foot results. all above d/w patient and her questions were answered and she agrees with above plan of care. D/W .
--- NOTE | 2018-03-18 10:44 | CP.PCM.PN ---
Subjective - Date & Time of Evaluation Date of Evaluation: 03/18/18 Time of Evaluation: 10:43 - Subjective Subjective: Podiatry progress note for attending Dr. Macdonald 51 year old female patient was seen and evaluated at bedside for left lower extremity pain, redness and swelling. Patient is seen resting comfortably along with her family member. AAOx3 and in NAD. Patient denies any other pedal complaint at this time. Patient denies f/n/v/sob, admits to loss of appetite. Dressing seen to be clean, dry and intact. Objective - Vital Signs/Intake and Output Vital Signs (last 24 hours): Temp Pulse Resp BP Pulse Ox 100.0 F H 82 19 138/68 96 03/18/18 07:47 03/18/18 08:34 03/18/18 07:47 03/18/18 08:34 03/18/18 07:47 - Medications Medications: Current Medications Acetaminophen (Tylenol 325mg Tab) 650 mg PO Q6 PRN PRN Reason: Fever 100 or greater Last Admin: 03/17/18 17:43 Dose: 650 mg Alprazolam (Xanax) 0.25 mg PO BID PRN PRN Reason: Anxiety Stop: 03/24/18 03:56 Last Admin: 03/18/18 06:37 Dose: 0.25 mg Amlodipine Besylate (Norvasc) 10 mg PO DAILY [facility] Last Admin: 03/18/18 08:34 Dose: 10 mg Aspirin (Ecotrin) 81 mg PO DAILY [facility] Last Admin: 03/18/18 08:34 Dose: 81 mg Atorvastatin Calcium (Lipitor) 40 mg PO HS [facility] Last Admin: 03/17/18 21:07 Dose: 40 mg Clonidine HCl (Catapres) 0.2 mg PO Q12 [facility] Last Admin: 03/18/18 08:34 Dose: 0.2 mg Clopidogrel Bisulfate (Plavix) 75 mg PO DAILY [facility] Last Admin: 03/18/18 08:34 Dose: 75 mg Cyanocobalamin (Vitamin B12 1000 Mcg Tab) 1,000 mcg PO DAILY [facility] Last Admin: 03/18/18 08:34 Dose: 1,000 mcg Dextrose (Dextrose 50% Inj) 0 ml IV STAT PRN; Protocol PRN Reason: Hypoglycemia Protocol Dextrose (Glutose 15) 0 gm PO ONCE PRN; Protocol PRN Reason: Hypoglycemia Protocol Glucagon (Glucagen Diagnostic Kit) 0 mg IM STAT PRN; Protocol PRN Reason: Hypoglycemia Protocol Vancomycin HCl 500 mg/ Sodium (Chloride) 100 mls @ 100 mls/hr IVPB Q12 [facility] PRN Reason: Protocol Piperacillin Sod/Tazobactam (Sod 2.25 gm/ Sodium Chloride) 100 mls @ 100 mls/ hr IVPB Q6 [facility] PRN Reason: Protocol Insulin Detemir (Levemir) 60 units SC HS [facility] Last Admin: 03/17/18 21:07 Dose: 60 u Insulin Human Lispro (Humalog) 0 units SC ACHS [facility] Last Admin: 03/18/18 06:51 Dose: Not Given Insulin Human Lispro (Humalog) 20 units SC AC [facility] Last Admin: 03/18/18 08:35 Dose: 20 units Isosorbide Mononitrate (Imdur) 60 mg PO DAILY [facility] Last Admin: 03/18/18 08:34 Dose: 60 mg Metoprolol Succinate (Toprol Xl) 200 mg PO Q12 [facility] Last Admin: 03/18/18 08:33 Dose: 200 mg Morphine Sulfate (Morphine Extended Release Tab) 30 mg PO Q12 [facility] Last Admin: 03/18/18 08:32 Dose: 30 mg Oxycodone HCl (Oxycodone Immediate Release Tab) 30 mg PO Q6H PRN PRN Reason: Pain, severe (8-10) Last Admin: 03/18/18 05:09 Dose: 30 mg - Labs Labs: 03/18/18 09:47 03/18/18 05:25 PT 12.3 Seconds (9.8-13.1) 03/17/18 00:08 INR 1.1 03/17/18 00:08 APTT 31.5 Seconds (25.6-37.1) 03/17/18 00:08 - Constitutional Appears: Well, Non-toxic, No Acute Distress - Head Exam Head Exam: ATRAUMATIC, NORMOCEPHALIC - Extremities Exam Additional comments: bilateral LE focused examination: Vasc: DP/PT pulses palpable 1/4. Temperature gradient warm to warmer from proximal to distal on the left and warm to warm on the right. Cap refill time < 3 sec to all digits; +1 pitting edema noted at the distal medial leg on the left side. Neuro: Protective sensation grossly diminished bilaterally. Derm: Diffuse diabetic dermopathy noted to leg and ankle region. Hyperpigmented , thickened skin right>left. An ulcer present in the plantar aspect of the left midfoot measures 2.4 X 1.5 X 1.4 cm. Wound margins are hyperkeratotic, base is granular 100%. No malodor. no tracking, undermining or probing to bone. wound was probed to 1.4 cm, no purulence, no fluctuance or abscess noted. An ulcer measures 1.4cm x 0.8cm x 0.2cm ulceration noted to plantar midfoot on the right. Wound margins are hyperkeratotic, base is granular 100%. No malodor, No drainage. no tracking, undermining or probing to bone, no purulence, no fluctuance or abscess noted. MSK: Pain on palpating the left perimalleolar area lateral > medial. Pain with inversion of the left ankle. Muscle power couldn't be assessed on the left side due to guarding. - Neurological Exam Neurological Exam: Alert, Awake, Oriented x3 - Psychiatric Exam Psychiatric exam: Normal Affect, Normal Mood - Skin Skin Exam: Normal Color Assessment and Plan - Assessment and Plan (Free Text) Assessment: 52 y/o F patient seen and evaluated at the ED for left Charcot foot flare/ cellulitis. and pain in her left ankle. Plan: Patient seen and evaluated at bedside in ED Discussed patient in details with attending Dr. Macdonald Labs, vitals and charts reviewed; Afebrile, WBC 6.7 X-rays of the B/L foot reviewed: - Abnormal osseous morphology consisted with Charcot arthropathy on the left side. - TMA on the right side Wounds cleaned using saline and dressing applied DSD; Posterior splint applied to the left foot Wound culturs: Cornyebacterium species final read. CT of left lower extremity ordered; official read pending Patient instructed to keep her leg elevated. Patient to stay NWB to the left lower extremity. PT order placed; please evaluate. Pt will be NWB to the left lower extremity and surgical shoe on the right foot. Podiatry plan: Charcot reconstruction of the left foot. Please provide medical and cardiac clearance. Infectious disease consulted; recs appreciated Endocrinolgist consulted; recs appreciated. Patient demonstrated verbal understanding Podiatry will Follow up the patient while in house.
--- NOTE | 2018-03-18 11:18 | CP.PCM.PN ---
Subjective - Date & Time of Evaluation Date of Evaluation: 03/18/18 Time of Evaluation: 11:24 - Subjective Subjective: PODIATRY CARE APPRECIATED STILL C/O FEET PAIN AND DRAINAGE VIA L FOOT NO FEVER TODAY Objective - Vital Signs/Intake and Output Vital Signs (last 24 hours): Temp Pulse Resp BP Pulse Ox 100.0 F H 82 19 138/68 96 03/18/18 07:47 03/18/18 08:34 03/18/18 07:47 03/18/18 08:34 03/18/18 07:47 - Medications Medications: Current Medications Acetaminophen (Tylenol 325mg Tab) 650 mg PO Q6 PRN PRN Reason: Fever 100 or greater Last Admin: 03/17/18 17:43 Dose: 650 mg Alprazolam (Xanax) 0.25 mg PO BID PRN PRN Reason: Anxiety Stop: 03/24/18 03:56 Last Admin: 03/18/18 06:37 Dose: 0.25 mg Amlodipine Besylate (Norvasc) 10 mg PO DAILY [facility] Last Admin: 03/18/18 08:34 Dose: 10 mg Aspirin (Ecotrin) 81 mg PO DAILY [facility] Last Admin: 03/18/18 08:34 Dose: 81 mg Atorvastatin Calcium (Lipitor) 40 mg PO HS [facility] Last Admin: 03/17/18 21:07 Dose: 40 mg Clonidine HCl (Catapres) 0.2 mg PO Q12 [facility] Last Admin: 03/18/18 08:34 Dose: 0.2 mg Clopidogrel Bisulfate (Plavix) 75 mg PO DAILY [facility] Last Admin: 03/18/18 08:34 Dose: 75 mg Cyanocobalamin (Vitamin B12 1000 Mcg Tab) 1,000 mcg PO DAILY [facility] Last Admin: 03/18/18 08:34 Dose: 1,000 mcg Dextrose (Dextrose 50% Inj) 0 ml IV STAT PRN; Protocol PRN Reason: Hypoglycemia Protocol Dextrose (Glutose 15) 0 gm PO ONCE PRN; Protocol PRN Reason: Hypoglycemia Protocol Glucagon (Glucagen Diagnostic Kit) 0 mg IM STAT PRN; Protocol PRN Reason: Hypoglycemia Protocol Vancomycin HCl 500 mg/ Sodium (Chloride) 100 mls @ 100 mls/hr IVPB Q12 [facility] PRN Reason: Protocol Piperacillin Sod/Tazobactam (Sod 2.25 gm/ Sodium Chloride) 100 mls @ 100 mls/ hr IVPB Q6 [facility] PRN Reason: Protocol Insulin Detemir (Levemir) 60 units SC HS [facility] Last Admin: 03/17/18 21:07 Dose: 60 u Insulin Human Lispro (Humalog) 0 units SC ACHS [facility] Last Admin: 03/18/18 06:51 Dose: Not Given Insulin Human Lispro (Humalog) 20 units SC AC [facility] Last Admin: 03/18/18 08:35 Dose: 20 units Isosorbide Mononitrate (Imdur) 60 mg PO DAILY [facility] Last Admin: 03/18/18 08:34 Dose: 60 mg Metoprolol Succinate (Toprol Xl) 200 mg PO Q12 [facility] Last Admin: 03/18/18 08:33 Dose: 200 mg Morphine Sulfate (Morphine Extended Release Tab) 30 mg PO Q12 [facility] Last Admin: 03/18/18 08:32 Dose: 30 mg Oxycodone HCl (Oxycodone Immediate Release Tab) 30 mg PO Q6H PRN PRN Reason: Pain, severe (8-10) Last Admin: 03/18/18 05:09 Dose: 30 mg - Labs Labs: 03/18/18 09:47 03/18/18 05:25 PT 12.3 Seconds (9.8-13.1) 03/17/18 00:08 INR 1.1 03/17/18 00:08 APTT 31.5 Seconds (25.6-37.1) 03/17/18 00:08 - Constitutional Appears: Chronically Ill - Head Exam Head Exam: ATRAUMATIC, NORMAL INSPECTION, NORMOCEPHALIC - Eye Exam Eye Exam: EOMI, Normal appearance, PERRL Pupil Exam: NORMAL ACCOMODATION, PERRL - ENT Exam ENT Exam: Mucous Membranes Moist, Normal Exam - Neck Exam Neck Exam: Full ROM, Normal Inspection. absent: Lymphadenopathy - Respiratory Exam Respiratory Exam: Clear to Ausculation Bilateral, NORMAL BREATHING PATTERN - Cardiovascular Exam Cardiovascular Exam: REGULAR RHYTHM, +S1, +S2. absent: Murmur - GI/Abdominal Exam GI & Abdominal Exam: Soft, Normal Bowel Sounds. absent: Tenderness - Rectal Exam Rectal Exam: NORMAL INSPECTION - Extremities Exam Extremities Exam: Joint Swelling, Normal Capillary Refill, Pedal Edema, Tenderness Additional comments: CELLULITIS OF L FOOT/ANKLE R FOOT ULCER - Back Exam Back Exam: NORMAL INSPECTION - Neurological Exam Neurological Exam: Alert, Awake, CN II-XII Intact, Normal Gait, Oriented x3 - Psychiatric Exam Psychiatric exam: Normal Affect, Normal Mood - Skin Skin Exam: Dry, Intact, Normal Color, Warm Assessment and Plan - Assessment and Plan (Free Text) Assessment: CELLULITIS OF FOOT/ANKLE CHARCOT FOOT UNCONTROLLED DM HTN PVD HX OF CHF--CHRONIC HX OF HYPERLIPIDEMIA ABNORMAL RENAL FUNCTION--R/O ANTIBIOTIC EFFECT Plan: ADJUST ANTIBIOTIC DOSE FOR RENAL STATUS CONTINUE PODIATRY CARE MONITOR BLOOD GLUCOSE CLOSELY ANALGESICS FOR PAIN PT IS UNABLE TO PERFORM MRI TO R/O OSTEOMYELITIS BECAUSE OF CLAUSTOPHOBIA
--- NOTE | 2018-03-18 14:03 | CT ---
Date of service: 03/17/2018 PROCEDURE: CT of the left foot HISTORY: charcot arthropathy; surgical planning. COMPARISON: TECHNIQUE: Radiation dose: Total exam DLP = 576 mGy-cm. This CT exam was performed using one or more of the following dose reduction techniques: Automated exposure control, adjustment of the mA and/or kV according to patient size, and/or use of iterative reconstruction technique. FINDINGS: Findings are consistent with severe Charcot arthropathy. There is bony destruction and dislocations of the midfoot. There is severe soft tissue swelling on the plantar aspect of the foot with a focal ulcer. There is some air in the soft tissues deep to the ulcer. This is seen on image 73 series 601. There is a small bony defect in the lateral cuneiform. This could represent osteomyelitis. . The report concurs with the preliminary [facility] report IMPRESSION: Severe Charcot arthropathy. Soft tissue edema and thickening adjacent to plantar ulcer. There is also some air in the soft tissues consistent with a soft tissue infection. Small bony defect in the cuneiform. This could be secondary to acute or chronic osteomyelitis
[2018-03-18] MEDS: Insulin Detemir 100 Units/ml Inj SC SCH (21:36)
[2018-03-19] MEDS: oxyCODONE 10 mg Immediate Release Tab PO PRN ×3 (05:08→21:34)
--- NOTE | 2018-03-19 05:40 | PN ---
Copied To: Yesika Vogel MD Attending MD: Yesika Vogel MD ENDO FOLLOWUP NOTE DATE: 03/18/2018 LOCATION: Room 656. SUBJECTIVE: This is a 52-year-old female with recent uncontrolled type 2 insulin-requiring diabetes, now being followed closely for metabolic management. She presented here with lower extremity cellulitis and underlying neuropathic ulceration especially in the plantar surfaces of both feet as noted. She also has diabetic microvascular complications of retinopathy, polyneuropathy, and nephropathy with diabetic macrovascular complications of coronary artery disease and peripheral arterial disease and vasculopathy. The latest glucose values are fluctuating, ranging from 296 to 395 mg/dL. Her latest chemistry showed a BUN of 65, sodium 133, potassium 4.6, chloride 94, CO2 of 29, glucose 304 and creatinine 2.5. Hemoglobin A1c is 12.5%, which is quite elevated and indicative of suboptimal metabolic control of her diabetic condition even prior to this admission. ASSESSMENT: This is a 52-year-old female with uncontrolled and decompensated type 2 insulin-requiring diabetes with significant diabetic microvascular complications of retinopathy, polyneuropathy, and nephropathy with underlying chronic kidney disease and advanced azotemia. PLAN OF MANAGEMENT: We will continue the same low-dose correction scale using Humalog insulin as given. We will titrate; however, his current insulin regimen and increase the Humalog to 26 units subcutaneous t.i.d. before meals as ordered. We will continue the same basal insulin given at a higher dose of Levemir at 80 units subcutaneous at bedtime daily as given. We will titrate incrementally as indicated to optimize metabolic control. We will obtain serial chemistries and supplement accordingly as needed. Yesika Vogel MD
[2018-03-19] MEDS: Insulin Lispro (humaLOG) 100 Units/ml Inj SC SCH ×7 (07:50→22:00)
[2018-03-19] MEDS: Metoprolol Succinate 100 mg XL Tab PO SCH ×2 (08:44→21:41)
[2018-03-19] MEDS: Morphine 30 mg SR Tab PO SCH ×2 (08:50→22:39)
--- NOTE | 2018-03-19 10:14 | CP.PCM.PN ---
Subjective - Date & Time of Evaluation Date of Evaluation: 03/19/18 Time of Evaluation: 10:16 - Subjective Subjective: L FOOT PAIN PERSISTS STILL HAS SWELLING AND REDNESS OF L FOOT PODIATRY WANTS MEDICAL AND CARDIAC CLEARANCE PRIOR TO L FOOT RECONSTRUCTIVE SURGERY Objective - Vital Signs/Intake and Output Vital Signs (last 24 hours): Temp Pulse Resp BP Pulse Ox 98.3 F 75 20 138/76 96 03/19/18 08:01 03/19/18 08:44 03/19/18 08:01 03/19/18 08:44 03/19/18 08:01 - Medications Medications: Current Medications Acetaminophen (Tylenol 325mg Tab) 650 mg PO Q6 PRN PRN Reason: Fever 100 or greater Last Admin: 03/17/18 17:43 Dose: 650 mg Alprazolam (Xanax) 0.25 mg PO BID PRN PRN Reason: Anxiety Stop: 03/24/18 03:56 Last Admin: 03/18/18 06:37 Dose: 0.25 mg Amlodipine Besylate (Norvasc) 10 mg PO DAILY [facility] Last Admin: 03/19/18 08:44 Dose: 10 mg Aspirin (Ecotrin) 81 mg PO DAILY [facility] Last Admin: 03/19/18 08:43 Dose: 81 mg Atorvastatin Calcium (Lipitor) 40 mg PO HS [facility] Last Admin: 03/18/18 21:00 Dose: 40 mg Clonidine HCl (Catapres) 0.2 mg PO Q12 [facility] Last Admin: 03/19/18 08:43 Dose: 0.2 mg Clopidogrel Bisulfate (Plavix) 75 mg PO DAILY [facility] Last Admin: 03/19/18 08:44 Dose: 75 mg Cyanocobalamin (Vitamin B12 1000 Mcg Tab) 1,000 mcg PO DAILY [facility] Last Admin: 03/19/18 08:44 Dose: 1,000 mcg Dextrose (Dextrose 50% Inj) 0 ml IV STAT PRN; Protocol PRN Reason: Hypoglycemia Protocol Dextrose (Glutose 15) 0 gm PO ONCE PRN; Protocol PRN Reason: Hypoglycemia Protocol Glucagon (Glucagen Diagnostic Kit) 0 mg IM STAT PRN; Protocol PRN Reason: Hypoglycemia Protocol Piperacillin Sod/Tazobactam (Sod 2.25 gm/ Sodium Chloride) 100 mls @ 100 mls/ hr IVPB Q6 [facility] PRN Reason: Protocol Last Admin: 03/19/18 04:22 Dose: 100 mls/hr Daptomycin 350 mg/ Sodium (Chloride) 100 mls @ 100 mls/hr IV Q48H [facility] PRN Reason: Protocol Stop: 03/23/18 12:16 Last Admin: 03/18/18 15:53 Dose: 100 mls/hr Insulin Detemir (Levemir) 60 units SC HS [facility] Last Admin: 03/18/18 21:36 Dose: 60 u Insulin Human Lispro (Humalog) 0 units SC ACHS [facility] Last Admin: 03/19/18 08:45 Dose: Not Given Insulin Human Lispro (Humalog) 20 units SC AC [facility] Last Admin: 03/19/18 07:50 Dose: 20 units Isosorbide Mononitrate (Imdur) 60 mg PO DAILY [facility] Last Admin: 03/19/18 08:44 Dose: 60 mg Metoprolol Succinate (Toprol Xl) 200 mg PO Q12 [facility] Last Admin: 03/19/18 08:44 Dose: 200 mg Morphine Sulfate (Morphine Extended Release Tab) 30 mg PO Q12 [facility] Last Admin: 03/19/18 08:50 Dose: 30 mg Oxycodone HCl (Oxycodone Immediate Release Tab) 30 mg PO Q6H PRN PRN Reason: Pain, severe (8-10) Last Admin: 03/19/18 05:08 Dose: 30 mg - Labs Labs: 03/18/18 09:47 03/18/18 05:25 PT 12.3 Seconds (9.8-13.1) 03/17/18 00:08 INR 1.1 03/17/18 00:08 APTT 31.5 Seconds (25.6-37.1) 03/17/18 00:08 - Constitutional Appears: In Acute Distress - Head Exam Head Exam: ATRAUMATIC, NORMAL INSPECTION, NORMOCEPHALIC - Eye Exam Eye Exam: EOMI, Normal appearance, PERRL Pupil Exam: NORMAL ACCOMODATION, PERRL - ENT Exam ENT Exam: Mucous Membranes Moist, Normal Exam - Neck Exam Neck Exam: Full ROM, Normal Inspection. absent: Lymphadenopathy - Respiratory Exam Respiratory Exam: Clear to Ausculation Bilateral, NORMAL BREATHING PATTERN - Cardiovascular Exam Cardiovascular Exam: REGULAR RHYTHM, +S1, +S2. absent: Murmur - GI/Abdominal Exam GI & Abdominal Exam: Soft, Normal Bowel Sounds. absent: Tenderness - Rectal Exam Rectal Exam: NORMAL INSPECTION - Extremities Exam Extremities Exam: Full ROM, Normal Capillary Refill, Normal Inspection, Pedal Edema, Tenderness. absent: Joint Swelling Additional comments: DISCHARGE L FOOT ULCER R FOOT--S/P TMA - Back Exam Back Exam: NORMAL INSPECTION - Neurological Exam Neurological Exam: Alert, Awake, CN II-XII Intact, Normal Gait, Oriented x3 - Psychiatric Exam Psychiatric exam: Normal Affect, Normal Mood - Skin Skin Exam: Dry, Intact, Normal Color, Warm Assessment and Plan - Assessment and Plan (Free Text) Assessment: OSTEOMYELITIS OF L FOOT CHARCOT ARTHROPATHY L FOOT S/P R TMA DM--UNCONTROLLED HTN ASHD--HX OF CHF Plan: CARDIAC CLEARANCE PRIOR TO SURGERY
--- NOTE | 2018-03-19 10:37 | CP.PCM.PN ---
Subjective - Date & Time of Evaluation Date of Evaluation: 03/19/18 Time of Evaluation: 10:34 - Subjective Subjective: Podiatry progress note for Dr. Macdonald: 51 yo female seen and evaluated for LLE pain, redness, swelling and right ulceration. Patient is resting comfortably in bed and in NAD. Patient denies any other pedal complaints at this time and has left her posterior splint and right foot dressings C/D/I. Patient is aware that there is a plan for reconstructive surgery next week with Dr. Macdonald. Denies any over night acute events and N/V/F/SOB/CP. Objective - Vital Signs/Intake and Output Vital Signs (last 24 hours): Temp Pulse Resp BP Pulse Ox 98.3 F 75 20 138/76 96 03/19/18 08:01 03/19/18 08:44 03/19/18 08:01 03/19/18 08:44 03/19/18 08:01 - Medications Medications: Current Medications Acetaminophen (Tylenol 325mg Tab) 650 mg PO Q6 PRN PRN Reason: Fever 100 or greater Last Admin: 03/17/18 17:43 Dose: 650 mg Alprazolam (Xanax) 0.25 mg PO BID PRN PRN Reason: Anxiety Stop: 03/24/18 03:56 Last Admin: 03/18/18 06:37 Dose: 0.25 mg Amlodipine Besylate (Norvasc) 10 mg PO DAILY [facility] Last Admin: 03/19/18 08:44 Dose: 10 mg Aspirin (Ecotrin) 81 mg PO DAILY [facility] Last Admin: 03/19/18 08:43 Dose: 81 mg Atorvastatin Calcium (Lipitor) 40 mg PO HS [facility] Last Admin: 03/18/18 21:00 Dose: 40 mg Clonidine HCl (Catapres) 0.2 mg PO Q12 [facility] Last Admin: 03/19/18 08:43 Dose: 0.2 mg Clopidogrel Bisulfate (Plavix) 75 mg PO DAILY [facility] Last Admin: 03/19/18 08:44 Dose: 75 mg Cyanocobalamin (Vitamin B12 1000 Mcg Tab) 1,000 mcg PO DAILY [facility] Last Admin: 03/19/18 08:44 Dose: 1,000 mcg Dextrose (Dextrose 50% Inj) 0 ml IV STAT PRN; Protocol PRN Reason: Hypoglycemia Protocol Dextrose (Glutose 15) 0 gm PO ONCE PRN; Protocol PRN Reason: Hypoglycemia Protocol Glucagon (Glucagen Diagnostic Kit) 0 mg IM STAT PRN; Protocol PRN Reason: Hypoglycemia Protocol Piperacillin Sod/Tazobactam (Sod 2.25 gm/ Sodium Chloride) 100 mls @ 100 mls/ hr IVPB Q6 [facility] PRN Reason: Protocol Last Admin: 03/19/18 04:22 Dose: 100 mls/hr Daptomycin 350 mg/ Sodium (Chloride) 100 mls @ 100 mls/hr IV Q48H [facility] PRN Reason: Protocol Stop: 03/23/18 12:16 Last Admin: 03/18/18 15:53 Dose: 100 mls/hr Insulin Detemir (Levemir) 60 units SC HS [facility] Last Admin: 03/18/18 21:36 Dose: 60 u Insulin Human Lispro (Humalog) 0 units SC ACHS [facility] Last Admin: 03/19/18 08:45 Dose: Not Given Insulin Human Lispro (Humalog) 20 units SC AC [facility] Last Admin: 03/19/18 07:50 Dose: 20 units Isosorbide Mononitrate (Imdur) 60 mg PO DAILY [facility] Last Admin: 03/19/18 08:44 Dose: 60 mg Metoprolol Succinate (Toprol Xl) 200 mg PO Q12 [facility] Last Admin: 03/19/18 08:44 Dose: 200 mg Morphine Sulfate (Morphine Extended Release Tab) 30 mg PO Q12 [facility] Last Admin: 03/19/18 08:50 Dose: 30 mg Oxycodone HCl (Oxycodone Immediate Release Tab) 30 mg PO Q6H PRN PRN Reason: Pain, severe (8-10) Last Admin: 03/19/18 05:08 Dose: 30 mg - Labs Labs: 03/18/18 09:47 03/18/18 05:25 PT 12.3 Seconds (9.8-13.1) 03/17/18 00:08 INR 1.1 03/17/18 00:08 APTT 31.5 Seconds (25.6-37.1) 03/17/18 00:08 - Constitutional Appears: Well, Non-toxic, No Acute Distress - Head Exam Head Exam: ATRAUMATIC, NORMOCEPHALIC - Extremities Exam Additional comments: Posterior splint intact to left lower extremity. RLE focused exam: Vasc: DP/PT pulses palpable 1/4. Temperature gradient warm to warm on the right. Cap refill time <3 sec to all digits Ortho: No tenderness upon palpation of right lower extremity. Neuro: Protective sensation absent bilaterally, gross sensation diminished Derm: Hyperpigmented, thickened skin right. Ulceration measuring 1.1cm x 0.7cm x 0.2cm noted to plantar midfoot on the right. Wound margins are hyperkeratotic , base is granular 100%. No malodor, No drainage. no tracking, undermining or probing to bone, no purulence, no fluctuance or abscess noted. - Neurological Exam Neurological Exam: Alert, Awake, Oriented x3 - Psychiatric Exam Psychiatric exam: Normal Affect, Normal Mood Assessment and Plan - Assessment and Plan (Free Text) Assessment: 52 yo female, seen and evaluated, for left Charcot arthropathy and right superficial ulceration Plan: Patient seen and evaluated at bedside Discussed patient in details with attending Dr. Macdonald Labs, vitals and charts reviewed; Afebrile, absent leukocytosis X-rays of the B/L foot reviewed (03/16): Abnormal osseous morphology consisted with Charcot arthropathy on the left side; TMA on the right side Patient to remain strict NWB to LLE Infectious disease consulted; recs appreciated Wound culture taken (03/17); Cornybacterium CT of LLE (03/17); Severe Charcot Arthropathy Patient demonstrates verbal understanding and is aware there is a plan for surgery Medical clearance and Cardiology clearance needed for surgical planning of charcot reconstruction; plan for surgery next week Podiatry will continue to follow while in house
--- NOTE | 2018-03-19 14:58 | PN ---
Copied To: Yesika Vogel MD Attending MD: Yesika Vogel MD DATE: 03/19/2018 ENDO FOLLOWUP NOTE LOCATION: In room 656. SUBJECTIVE: This is a 52-year-old female with recent uncontrolled type 2 insulin-requiring diabetes, presenting here with lower extremity neuropathic ulcerations and cellulitis, and is also being followed closely for metabolic management. Her glycemic levels are fluctuating, but improved and the glucose values have ranged from 171 to 243 mg/dL overnight. LABORATORY DATA: Her latest chemistry showed a BUN of 65, sodium 133, potassium 4.6, chloride 94, CO2 of 29, glucose 304, and creatinine 2.5. Her hemoglobin A1c is 12.5%. ASSESSMENT AND PLAN: So at this time, we will modify her current basal and bolus insulin regimen and increase the Humalog to 20 units subcutaneously t.i.d. before meals to start today. We will also increase the basal insulin with Levemir to be given as 60 units subcutaneously at bedtime daily to start tonight. We will continue to modify correction scale using Humalog insulin as given to allow for dose equilibration. We will obtain serial chemistries and supplement accordingly as needed. We will follow. Yesika Vogel MD
[2018-03-19] MEDS: Insulin Detemir 100 Units/ml Inj SC SCH (22:36)
[2018-03-20] MEDS: oxyCODONE 10 mg Immediate Release Tab PO PRN ×4 (04:01→22:15)
[2018-03-20 07:33] LABS: ALBUMIN 3.5 g/dL (3.5-5.0); CALCIUM 9.2 mg/dL (8.4-10.2)
[2018-03-20] MEDS: Insulin Lispro (humaLOG) 100 Units/ml Inj SC SCH ×7 (08:39→21:02)
[2018-03-20] MEDS: Metoprolol Succinate 100 mg XL Tab PO SCH ×2 (08:41→20:59)
[2018-03-20] MEDS: Morphine 30 mg SR Tab PO SCH ×2 (08:45→20:59)
--- NOTE | 2018-03-20 11:58 | CP.PCM.CON ---
History of Present Illness - History of Present Illness History of Present Illness: I was asked to see patient by Dr Malagon. Patient is a 52 year old fema;le with PMH HTN, CAD s/p PCI 5 years ago, PAD s/p R SFA/popliteal stent who presents with pain of the L foot. the patient has Charcot foot deformity and surgery is being planned. She developed pain of the foot while walking and presented to [facility]. She denies chest pain. Review of Systems - Constitutional Constitutional: absent: As Per HPI, Anorexia, Chills, Daytime Sleepiness, Excessive Sweating, Fatigue, Fever, Frequent Falls, Headache, Increased Appetite , Lethargy, Malaise, Night Sweats, Snoring, Sleep Apnea, Weight Gain, Weight Loss, Weakness, Other - EENT Eyes: absent: As Per HPI, Blind Spots, Blurred Vision, Change in Vision, Decreased Night Vision, Diplopia, Discharge, Dry Eye, Exophthalmos, Floaters, Irritation, Itchy Eyes, Loss of Peripheral Vision, Pain, Photophobia, Requires Corrective Lenses, Sees Flashes, Spots in Vision, Tunnel Vision, Other Visual Disturbances, Loss of Vision, Other Ears: absent: As Per HPI, Decreased Hearing, Ear Discharge, Ear Pain, Tinnitus, Abnormal Hearing, Disequilibrium, Dizziness, Other Nose/Mouth/Throat: absent: As Per HPI, Epistaxis, Nasal Congestion, Nasal Discharge, Nasal Obstruction, Nasal Trauma, Nose Pain, Post Nasal Drip, Sinus Pain, Sinus Pressure, Bleeding Gums, Change in Voice, Dental Pain, Dry Mouth, Dysphagia, Halitosis, Hoarsness, Lip Swelling, Mouth Lesions, Mouth Pain, Odynophagia, Sore Throat, Throat Swelling, Tongue Swelling, Facial Pain, Neck Pain, Neck Mass, Other - Breasts Breasts: absent: As Per HPI, Change in Shape, Mass, Pain, Nipple Discharge, Nipple Inversion, Skin Changes, Swelling, Other - Cardiovascular Cardiovascular: absent: As Per HPI, Acrocyanosis, Chest Pain, Chest Pain at Rest , Chest Pain with Activity, Claudication, Diaphoresis, Dyspnea, Dyspnea on Exertion, Edema, Irregular Heart Rhythm, Pain Radiating to Arm/Neck/Jaw, Leg Edema, Leg Ulcers, Lightheadedness, Orthopnea, Palpitations, Paroxysmal Nocturnal Dyspnea, Pedal Edema, Radiating Pain, Rapid Heart Rate, Slow Heart Rate, Syncope, Other - Respiratory Respiratory: absent: As Per HPI, Cough, Dyspnea, Hemoptysis, Dyspnea on Exertion , Wheezing, Snoring, Stridor, Pain on Inspiration, Chest Congestion, Excessive Mucous Production, Change in Mucous Color, Pain with Coughing, Other - Gastrointestinal Gastrointestinal: absent: As Per HPI, Abdominal Pain, Belching, Bloating, Change in Bowel Habits, Change in Stool Character, Coffee Ground Emesis, Constipation, Cramping, Diarrhea, Dyspepsia, Dysphagia, Early Satiety, Excessive Flatus, Fecal Incontinence, Heartburn, Hematemesis, Hematochezia, Loose Stools, Melena, Nausea, Odynophagia, Temesmus, Vomiting, Other - Genitourinary Genitourinary: absent: As Per HPI, Change in Urinary Stream, Difficulty Urinating, Dysuria, Flank Pain, Hematuria, Pyuria, Nocturia, Urinary Incontinence, Urinary Frequency, Urinary Hesitance, Urinary Urgency, Voiding Freq/Small Amts, Freq UTI, Hx Renal/Bladder Calculi, Hx /Renal Surgery, Bladder Distension, Other - Menstruation Menstruation: absent: As Per HPI, Amenorrhea, Amenorrhea/ Control, Currently Menstual, Cycle <21 Days, Cycle >35 Days, Cycle Variable, Menses 1-7 Days, Menses >/= 8 Days, Menses Variable, Cycle > 4 Weeks Between, No Menses for 6 Months, Heavy Menses, Light Menses, Normal Menses, Spotting Between Cycles , S/P Hysterectomy, Menopausal, Post Menopausal, Premenarche, Abnormal Vaginal Bleeding, Dysmenorrhea, Other - Musculoskeletal Musculoskeletal: Radiating Pain into Limb - Integumentary Integumentary: absent: As Per HPI, Acne, Alopecia, Bleeding Lesions, Change in Hair, Change in Nails, Change in Pigmentation, Changing Lesions, Dry Skin, Erythema, Furuncle, Hirsutism, Lesions, New Lesions, Non-Healing Lesions, Photosensitivity, Pruritus, Rash, Skin Pain, Skin Ulcer, Sores, Striae, Swelling , Unusual Bruising, Wounds, Jaundice, Other - Neurological Neurological: absent: As Per HPI, Abnormal Gait, Abnormal Hearing, Abnormal Movements, Abnormal Speech, Behavioral Changes, Burning Sensations, Confusion, Convulsions, Disequilibrium, Dizziness, Numbness, Focal Weakness, Frequent Falls , Headaches, Lack of Coordination, Loss of Vision, Memory Loss, Paresthesias, Radicular Pain, Restless Legs, Sensory Deficit, Syncope, Tingling, Tremor, Vertigo, Weakness, Other Visual Disturbances, Other - Psychiatric Psychiatric: absent: As Per HPI, Abnormal Sleep Pattern, Anhedonia, Anxiety, Auditory Hallucinations, Behavioral Changes, Change in Appetite, Change in Libido, Confusion, Depression, Difficulty Concentrating, Hallucinations, Homicidal Ideation, Hopelessness, Irritability, Memory Loss, Mood Swings, Panic Attacks, Paranoia, Suicidal Ideation, Visual Hallucinations, Tactile Hallucinations, Other - Endocrine Endocrine: absent: As Per HPI, Change in Body Appearance, Change in Libido, Cold Intolorance, Deepening of Voice, Excessive Sweating, Fatigue, Flushing, Heat Intolorance, Increase in Ring/Shoe/Hat Size, Palpitations, Polydipsia, Polyphagia, Polyuria, Other - Hematologic/Lymphatic Hematologic: absent: As Per HPI, Easy Bleeding, Easy Bruising, Lymphadenopathy, Other Past Patient History - Infectious Disease Hx of Infectious Diseases: None - Tetanus Immunizations Tetanus Immunization: Unknown - Past Medical History & Family History Past Medical History?: Yes - Past Social History Smoking Status: Former Smoker Home Situation {Lives}: With Family - CARDIAC Hx Congestive Heart Failure: No Hx Hypercholesterolemia: Yes Hx Hypertension: Yes Hx Peripheral Edema: Yes - PULMONARY Hx Chronic Obstructive Pulmonary Disease (COPD): No - NEUROLOGICAL Hx Seizures: No - HEENT Hx HEENT Problems: No - RENAL Hx Chronic Kidney Disease: No - ENDOCRINE/METABOLIC Hx Hypothyroidism: No - HEMATOLOGICAL/ONCOLOGICAL Hx Anemia: Yes Hx Human Immunodeficiency Virus (HIV): No - INTEGUMENTARY Hx Dermatological Problems: No - MUSCULOSKELETAL/RHEUMATOLOGICAL Hx Arthritis: Yes Hx Rheumatoid Arthritis: No - GASTROINTESTINAL Hx Gastrointestinal Disorders: No - GENITOURINARY/GYNECOLOGICAL Hx Sexually Transmitted Disorders: No - PSYCHIATRIC Hx Anxiety: Yes Hx Depression: Yes - SURGICAL HISTORY Hx Appendectomy: Yes Hx Coronary Stent: Yes - ANESTHESIA Hx Anesthesia: Yes Hx Anesthesia Reactions: Yes (CAN'T BREATH-ADMITTED TO ICU) Hx Malignant Hyperthermia: No Meds Allergies/Adverse Reactions: Allergies Allergy/AdvReac Type Severity Reaction Status Date / Time No Known Allergies Allergy Verified 03/17/18 04:21 - Medications Medications: Current Medications Acetaminophen (Tylenol 325mg Tab) 650 mg PO Q6 PRN PRN Reason: Fever 100 or greater Last Admin: 03/17/18 17:43 Dose: 650 mg Alprazolam (Xanax) 0.25 mg PO BID PRN PRN Reason: Anxiety Stop: 03/24/18 03:56 Last Admin: 03/18/18 06:37 Dose: 0.25 mg Amlodipine Besylate (Norvasc) 10 mg PO DAILY [facility] Last Admin: 03/20/18 08:40 Dose: 10 mg Aspirin (Ecotrin) 81 mg PO DAILY [facility] Last Admin: 03/20/18 08:39 Dose: 81 mg Atorvastatin Calcium (Lipitor) 40 mg PO HS [facility] Last Admin: 03/19/18 21:44 Dose: 40 mg Clonidine HCl (Catapres) 0.2 mg PO Q12 [facility] Last Admin: 03/20/18 08:38 Dose: 0.2 mg Clopidogrel Bisulfate (Plavix) 75 mg PO DAILY [facility] Last Admin: 03/20/18 08:41 Dose: 75 mg Cyanocobalamin (Vitamin B12 1000 Mcg Tab) 1,000 mcg PO DAILY [facility] Last Admin: 03/20/18 08:41 Dose: 1,000 mcg Dextrose (Dextrose 50% Inj) 0 ml IV STAT PRN; Protocol PRN Reason: Hypoglycemia Protocol Dextrose (Glutose 15) 0 gm PO ONCE PRN; Protocol PRN Reason: Hypoglycemia Protocol Docusate Sodium (Colace) 100 mg PO BID [facility] Last Admin: 03/20/18 08:38 Dose: 100 mg Glucagon (Glucagen Diagnostic Kit) 0 mg IM STAT PRN; Protocol PRN Reason: Hypoglycemia Protocol Piperacillin Sod/Tazobactam (Sod 2.25 gm/ Sodium Chloride) 100 mls @ 100 mls/ hr IVPB Q6 [facility] PRN Reason: Protocol Last Admin: 03/20/18 09:29 Dose: 100 mls/hr Daptomycin 350 mg/ Sodium (Chloride) 100 mls @ 100 mls/hr IV Q48H [facility] PRN Reason: Protocol Stop: 03/23/18 12:16 Last Admin: 03/18/18 15:53 Dose: 100 mls/hr Insulin Detemir (Levemir) 60 units SC HS [facility] Last Admin: 03/19/18 22:36 Dose: 60 u Insulin Human Lispro (Humalog) 0 units SC ACHS [facility] Last Admin: 03/20/18 08:39 Dose: 2 units Insulin Human Lispro (Humalog) 20 units SC AC [facility] Last Admin: 03/20/18 08:40 Dose: 20 units Isosorbide Mononitrate (Imdur) 60 mg PO DAILY [facility] Last Admin: 03/20/18 08:40 Dose: 60 mg Metoprolol Succinate (Toprol Xl) 200 mg PO Q12 [facility] Last Admin: 03/20/18 08:41 Dose: 200 mg Morphine Sulfate (Morphine Extended Release Tab) 30 mg PO Q12 [facility] Last Admin: 03/20/18 08:45 Dose: 30 mg Oxycodone HCl (Oxycodone Immediate Release Tab) 30 mg PO Q6H PRN PRN Reason: Pain, severe (8-10) Last Admin: 03/20/18 09:28 Dose: 30 mg Physical Exam - Constitutional Appears: Non-toxic - Head Exam Head Exam: NORMAL INSPECTION - Eye Exam Eye Exam: Normal appearance - ENT Exam ENT Exam: Mucous Membranes Moist - Neck Exam Neck exam: Positive for: Full Rom - Respiratory Exam Respiratory Exam: NORMAL BREATHING PATTERN - Cardiovascular Exam Cardiovascular Exam: REGULAR RHYTHM - GI/Abdominal Exam GI & Abdominal Exam: Normal Bowel Sounds - Rectal Exam Rectal Exam: Deferred - Extremities Exam Additional comments: Charcot foot L - Back Exam Back exam: NORMAL INSPECTION - Neurological Exam Neurological exam: Alert, Oriented x3 - Psychiatric Exam Psychiatric exam: Normal Affect - Skin Skin Exam: Normal Color Results - Vital Signs Recent Vital Signs: Last Vital Signs Temp 97.6 F 03/20/18 07:42 Pulse 70 03/20/18 08:41 Resp 19 03/20/18 07:42 BP 141/62 03/20/18 08:38 Pulse Ox 97 03/20/18 07:42 - Labs Result Diagrams: 03/18/18 09:47 03/20/18 06:30 Labs: Laboratory Results - last 24 hr 03/19/18 03/19/18 03/20/18 15:42 21:48 06:30 Sodium 139 Potassium 4.9 Chloride 100 Carbon Dioxide 31 H Anion Gap 13 BUN 58 H Creatinine 1.8 H Est GFR ( Amer) 36 Est GFR (Non-Af Amer) 30 POC Glucose (mg/dL) 285 H 253 H Random Glucose 365 H Calcium 9.2 Total Bilirubin 0.4 AST 34 ALT 30 Alkaline Phosphatase 144 H Total Protein 7.0 Albumin 3.5 Globulin 3.5 Albumin/Globulin Ratio 1.0 03/20/18 03/20/18 06:31 11:08 Sodium Potassium Chloride Carbon Dioxide Anion Gap BUN Creatinine Est GFR ( Amer) Est GFR (Non-Af Amer) POC Glucose (mg/dL) 326 H 352 H Random Glucose Calcium Total Bilirubin AST ALT Alkaline Phosphatase Total Protein Albumin Globulin Albumin/Globulin Ratio - EKG Data EKG Interpreted by: Myself EKG shows normal: Sinus rhythm Assessment & Plan (1) Diabetic foot ulcer Assessment and Plan: patient will require evaluation of distal circulation prior to surgery. will schedule CT angiogram Status: Acute (2) CAD (coronary artery disease) Assessment and Plan: on antiplatelet therapy. It is ok to hold if required by surgery Status: Acute (3) Hypertension Assessment and Plan: blood pressure control Status: Chronic Priority: Medium
--- NOTE | 2018-03-20 13:07 | CP.PCM.PN ---
Subjective - Date & Time of Evaluation Date of Evaluation: 03/20/18 Time of Evaluation: 13:07 - Subjective Subjective: NO NEW CLINICAL FINDINGS [facility]SISTS CARDIOLOGY CLEARANCE PENDING ORDERED TESTS Objective - Vital Signs/Intake and Output Vital Signs (last 24 hours): Temp Pulse Resp BP Pulse Ox 97.6 F 70 19 141/62 97 03/20/18 07:42 03/20/18 08:41 03/20/18 07:42 03/20/18 08:38 03/20/18 07:42 - Medications Medications: Current Medications Acetaminophen (Tylenol 325mg Tab) 650 mg PO Q6 PRN PRN Reason: Fever 100 or greater Last Admin: 03/17/18 17:43 Dose: 650 mg Alprazolam (Xanax) 0.25 mg PO BID PRN PRN Reason: Anxiety Stop: 03/24/18 03:56 Last Admin: 03/18/18 06:37 Dose: 0.25 mg Amlodipine Besylate (Norvasc) 10 mg PO DAILY [facility] Last Admin: 03/20/18 08:40 Dose: 10 mg Aspirin (Ecotrin) 81 mg PO DAILY [facility] Last Admin: 03/20/18 08:39 Dose: 81 mg Atorvastatin Calcium (Lipitor) 40 mg PO HS [facility] Last Admin: 03/19/18 21:44 Dose: 40 mg Clonidine HCl (Catapres) 0.2 mg PO Q12 [facility] Last Admin: 03/20/18 08:38 Dose: 0.2 mg Clopidogrel Bisulfate (Plavix) 75 mg PO DAILY [facility] Last Admin: 03/20/18 08:41 Dose: 75 mg Cyanocobalamin (Vitamin B12 1000 Mcg Tab) 1,000 mcg PO DAILY [facility] Last Admin: 03/20/18 08:41 Dose: 1,000 mcg Dextrose (Dextrose 50% Inj) 0 ml IV STAT PRN; Protocol PRN Reason: Hypoglycemia Protocol Dextrose (Glutose 15) 0 gm PO ONCE PRN; Protocol PRN Reason: Hypoglycemia Protocol Docusate Sodium (Colace) 100 mg PO BID [facility] Last Admin: 03/20/18 08:38 Dose: 100 mg Glucagon (Glucagen Diagnostic Kit) 0 mg IM STAT PRN; Protocol PRN Reason: Hypoglycemia Protocol Piperacillin Sod/Tazobactam (Sod 2.25 gm/ Sodium Chloride) 100 mls @ 100 mls/ hr IVPB Q6 [facility] PRN Reason: Protocol Last Admin: 03/20/18 09:29 Dose: 100 mls/hr Daptomycin 350 mg/ Sodium (Chloride) 100 mls @ 100 mls/hr IV Q48H [facility] PRN Reason: Protocol Stop: 03/23/18 12:16 Last Admin: 03/18/18 15:53 Dose: 100 mls/hr Insulin Detemir (Levemir) 60 units SC HS [facility] Last Admin: 03/19/18 22:36 Dose: 60 u Insulin Human Lispro (Humalog) 0 units SC ACHS [facility] Last Admin: 03/20/18 08:39 Dose: 2 units Insulin Human Lispro (Humalog) 20 units SC AC [facility] Last Admin: 03/20/18 08:40 Dose: 20 units Isosorbide Mononitrate (Imdur) 60 mg PO DAILY [facility] Last Admin: 03/20/18 08:40 Dose: 60 mg Metoprolol Succinate (Toprol Xl) 200 mg PO Q12 [facility] Last Admin: 03/20/18 08:41 Dose: 200 mg Morphine Sulfate (Morphine Extended Release Tab) 30 mg PO Q12 [facility] Last Admin: 03/20/18 08:45 Dose: 30 mg Oxycodone HCl (Oxycodone Immediate Release Tab) 30 mg PO Q6H PRN PRN Reason: Pain, severe (8-10) Last Admin: 03/20/18 09:28 Dose: 30 mg - Labs Labs: 03/18/18 09:47 03/20/18 06:30 PT 12.3 Seconds (9.8-13.1) 03/17/18 00:08 INR 1.1 03/17/18 00:08 APTT 31.5 Seconds (25.6-37.1) 03/17/18 00:08 - Constitutional Appears: Chronically Ill - Head Exam Head Exam: ATRAUMATIC, NORMAL INSPECTION, NORMOCEPHALIC - Eye Exam Eye Exam: EOMI, Normal appearance, PERRL Pupil Exam: NORMAL ACCOMODATION, PERRL - ENT Exam ENT Exam: Mucous Membranes Moist, Normal Exam - Neck Exam Neck Exam: Full ROM, Normal Inspection. absent: Lymphadenopathy - Respiratory Exam Respiratory Exam: Clear to Ausculation Bilateral, NORMAL BREATHING PATTERN - Cardiovascular Exam Cardiovascular Exam: REGULAR RHYTHM, +S1, +S2. absent: Murmur - GI/Abdominal Exam GI & Abdominal Exam: Soft, Normal Bowel Sounds. absent: Tenderness - Rectal Exam Rectal Exam: NORMAL INSPECTION - Extremities Exam Extremities Exam: Full ROM, Normal Capillary Refill, Normal Inspection. absent : Joint Swelling, Pedal Edema - Back Exam Back Exam: tenderness - Neurological Exam Neurological Exam: Alert, Awake, CN II-XII Intact, Normal Gait, Oriented x3 - Psychiatric Exam Psychiatric exam: Normal Affect, Normal Mood Assessment and Plan - Assessment and Plan (Free Text) Assessment: CELLULITIS WITH OSTEOMYELITIS OF L LEG DM TYPE 2--UNCONTROLLED HTN PVD HX OF CHF Plan: CONTINUE CURRENT RX AWAIT CARDIOLOGY CLEARANCE PRIOR TO PODIATRY SURGERY
--- NOTE | 2018-03-20 13:59 | PN ---
Copied To: Yesika Vogel MD Attending MD: Yesika Vogel MD DATE: 03/20/2018 ENDO FOLLOWUP NOTE LOCATION: Room 656. SUBJECTIVE: This is a 52-year-old female with recent uncontrolled type 2 insulin requiring diabetes, now being followed closely for metabolic management because of recent hyperglycemic accelerations as noted thereof. Her glucose values are fluctuating, but improved as noted. The latest chemistry showed a BUN of 65, sodium 133, potassium 4.6, chloride 94, CO2 29, glucose 304, and creatinine 2.5. Her A1c is elevated at 12.5% as noted. ASSESSMENT AND PLAN: So, at this time, we will continue the same basal and bolus insulin regimen to allow for dose equilibration and keep her on the Humalog given as 20 units subcutaneous before meals as noted. We will increase her basal insulin with Levemir to be given as 70 units subcu at bedtime daily as given. IV antibiotics management for foot cellulitis with underlying neuropathic ulceration as noted. We will obtain serial chemistries and supplement accordingly as needed. We will follow. Yesika Vogel MD
--- NOTE | 2018-03-20 18:18 | CP.PCM.PN ---
<Isis Pena - Last Filed: 03/20/18 18:21> Subjective - Date & Time of Evaluation Date of Evaluation: 03/20/18 Time of Evaluation: 18:15 - Subjective Subjective: Podiatry progress note for Dr. Macdonald: 51 yo female seen and evaluated for LLE pain, redness, swelling and right ulceration. Patient went down for testing and had her right foot dressing and left posterior splint removed. Patient is resting in bed comfortably. She notes that her left foot is in more pain than usual today. Denies any acute events overnight. Denies N/V/F/SOB/CP. Objective - Vital Signs/Intake and Output Vital Signs (last 24 hours): Temp Pulse Resp BP Pulse Ox 98.4 F 68 18 134/70 93 L 03/20/18 16:11 03/20/18 16:11 03/20/18 16:11 03/20/18 16:11 03/20/18 16:11 - Medications Medications: Current Medications Acetaminophen (Tylenol 325mg Tab) 650 mg PO Q6 PRN PRN Reason: Fever 100 or greater Last Admin: 03/17/18 17:43 Dose: 650 mg Alprazolam (Xanax) 0.25 mg PO BID PRN PRN Reason: Anxiety Stop: 03/24/18 03:56 Last Admin: 03/18/18 06:37 Dose: 0.25 mg Amlodipine Besylate (Norvasc) 10 mg PO DAILY [facility] Last Admin: 03/20/18 08:40 Dose: 10 mg Aspirin (Ecotrin) 81 mg PO DAILY [facility] Last Admin: 03/20/18 08:39 Dose: 81 mg Atorvastatin Calcium (Lipitor) 40 mg PO HS [facility] Last Admin: 03/19/18 21:44 Dose: 40 mg Clonidine HCl (Catapres) 0.2 mg PO Q12 [facility] Last Admin: 03/20/18 08:38 Dose: 0.2 mg Clopidogrel Bisulfate (Plavix) 75 mg PO DAILY [facility] Last Admin: 03/20/18 08:41 Dose: 75 mg Cyanocobalamin (Vitamin B12 1000 Mcg Tab) 1,000 mcg PO DAILY [facility] Last Admin: 03/20/18 08:41 Dose: 1,000 mcg Dextrose (Dextrose 50% Inj) 0 ml IV STAT PRN; Protocol PRN Reason: Hypoglycemia Protocol Dextrose (Glutose 15) 0 gm PO ONCE PRN; Protocol PRN Reason: Hypoglycemia Protocol Docusate Sodium (Colace) 100 mg PO BID [facility] Last Admin: 03/20/18 16:32 Dose: 100 mg Glucagon (Glucagen Diagnostic Kit) 0 mg IM STAT PRN; Protocol PRN Reason: Hypoglycemia Protocol Piperacillin Sod/Tazobactam (Sod 2.25 gm/ Sodium Chloride) 100 mls @ 100 mls/ hr IVPB Q6 [facility] PRN Reason: Protocol Last Admin: 03/20/18 16:31 Dose: 100 mls/hr Daptomycin 350 mg/ Sodium (Chloride) 100 mls @ 100 mls/hr IV Q48H [facility] PRN Reason: Protocol Stop: 03/23/18 12:16 Last Admin: 03/20/18 13:08 Dose: 100 mls/hr Insulin Detemir (Levemir) 60 units SC HS [facility] Last Admin: 03/19/18 22:36 Dose: 60 u Insulin Human Lispro (Humalog) 0 units SC ACHS [facility] Last Admin: 03/20/18 17:49 Dose: Not Given Insulin Human Lispro (Humalog) 20 units SC AC [facility] Last Admin: 03/20/18 17:50 Dose: 20 units Isosorbide Mononitrate (Imdur) 60 mg PO DAILY [facility] Last Admin: 03/20/18 08:40 Dose: 60 mg Metoprolol Succinate (Toprol Xl) 200 mg PO Q12 [facility] Last Admin: 03/20/18 08:41 Dose: 200 mg Morphine Sulfate (Morphine Extended Release Tab) 30 mg PO Q12 [facility] Last Admin: 03/20/18 08:45 Dose: 30 mg Oxycodone HCl (Oxycodone Immediate Release Tab) 30 mg PO Q6H PRN PRN Reason: Pain, severe (8-10) Last Admin: 03/20/18 16:31 Dose: 30 mg - Labs Labs: 03/18/18 09:47 03/20/18 06:30 PT 12.3 Seconds (9.8-13.1) 03/17/18 00:08 INR 1.1 03/17/18 00:08 APTT 31.5 Seconds (25.6-37.1) 03/17/18 00:08 - Constitutional Appears: Well, Non-toxic, No Acute Distress - Head Exam Head Exam: ATRAUMATIC, NORMOCEPHALIC - Extremities Exam Additional comments: Vasc: DP/PT pulses palpable 1/4 on the right. Temperature gradient warm to warm on the right. Cap refill time <3 sec to all digits Ortho: No tenderness upon palpation of right lower extremity. Neuro: Protective sensation absent bilaterally, gross sensation diminished Derm: Right: Hyperpigmented, thickened skin right. Ulceration measuring 1.1cm x 0.7cm x 0.2cm noted to plantar midfoot on the right. Wound margins are hyperkeratotic, base is granular 100%. No malodor, No drainage. no tracking, undermining or probing to bone, no purulence, no fluctuance or abscess noted. Left: Left plantar midfoot ulceration measuring approximately 2.5 X 1.7 X 0.3 cm. Wound margins are hyperkeratotic. No malodor, minimal serous drainage, no tracking, no undermining no probe to bone - Neurological Exam Neurological Exam: Alert, Awake, Oriented x3 - Psychiatric Exam Psychiatric exam: Normal Affect, Normal Mood Assessment and Plan - Assessment and Plan (Free Text) Assessment: 52 yo female, seen and evaluated, for left Charcot arthropathy and right superficial ulceration Plan: Patient seen and evaluated at bedside Labs, vitals and charts reviewed; Afebrile, absent leukocytosis X-rays of the B/L foot reviewed (03/16): Abnormal osseous morphology consisted with Charcot arthropathy on the left side; TMA on the right side Patient to remain strict NWB to LLE Infectious disease consulted; recs appreciated Wound culture taken (03/17); Cornybacterium CT of LLE (03/17); Severe Charcot Arthropathy DSD dressing applied to left foot ulcer and posterior splint reapplied to left lower extremity DSD applied to right plantar ulceration LE US; pending Patient demonstrates verbal understanding and is aware there is a plan for surgery Medical clearance and Cardiology clearance requested for surgical planning of charcot reconstruction; plan for surgery next week Podiatry will continue to follow while in house <James Macdonald - Last Filed: 03/22/18 10:22> Objective - Vital Signs/Intake and Output Vital Signs (last 24 hours): Temp Pulse Resp BP Pulse Ox 98.1 F 70 19 159/60 H 95 03/22/18 07:46 03/22/18 07:46 03/22/18 07:46 03/22/18 07:46 03/22/18 07:46 - Medications Medications: Current Medications Acetaminophen (Tylenol 325mg Tab) 650 mg PO Q6 PRN PRN Reason: Fever 100 or greater Last Admin: 03/17/18 17:43 Dose: 650 mg Alprazolam (Xanax) 0.25 mg PO BID PRN PRN Reason: Anxiety Stop: 03/24/18 03:56 Last Admin: 03/18/18 06:37 Dose: 0.25 mg Amlodipine Besylate (Norvasc) 10 mg PO DAILY [facility] Last Admin: 03/21/18 08:49 Dose: 10 mg Aspirin (Ecotrin) 81 mg PO DAILY [facility] Last Admin: 03/20/18 08:39 Dose: 81 mg Atorvastatin Calcium (Lipitor) 40 mg PO HS [facility] Last Admin: 03/21/18 21:04 Dose: 40 mg Clonidine HCl (Catapres) 0.2 mg PO Q12 [facility] Last Admin: 03/21/18 21:04 Dose: 0.2 mg Clopidogrel Bisulfate (Plavix) 75 mg PO DAILY [facility] Last Admin: 03/20/18 08:41 Dose: 75 mg Cyanocobalamin (Vitamin B12 1000 Mcg Tab) 1,000 mcg PO DAILY [facility] Last Admin: 03/21/18 08:52 Dose: 1,000 mcg Dextrose (Dextrose 50% Inj) 0 ml IV STAT PRN; Protocol PRN Reason: Hypoglycemia Protocol Dextrose (Glutose 15) 0 gm PO ONCE PRN; Protocol PRN Reason: Hypoglycemia Protocol Glucagon (Glucagen Diagnostic Kit) 0 mg IM STAT PRN; Protocol PRN Reason: Hypoglycemia Protocol Hydromorphone HCl (Dilaudid) 1 mg IVP Q4 PRN PRN Reason: Pain, moderate (4-7) Last Admin: 03/22/18 02:32 Dose: 1 mg Piperacillin Sod/Tazobactam (Sod 2.25 gm/ Sodium Chloride) 100 mls @ 100 mls/ hr IVPB Q6 [facility] PRN Reason: Protocol Last Admin: 03/22/18 03:04 Dose: 100 mls/hr Daptomycin 350 mg/ Sodium (Chloride) 100 mls @ 100 mls/hr IV Q48H [facility] PRN Reason: Protocol Stop: 03/23/18 12:16 Last Admin: 03/20/18 13:08 Dose: 100 mls/hr Insulin Detemir (Levemir) 70 units SC HS [facility] Last Admin: 03/21/18 21:05 Dose: 70 u Insulin Human Lispro (Humalog) 0 units SC ACHS [facility] Last Admin: 03/21/18 21:06 Dose: Not Given Insulin Human Lispro (Humalog) 28 units SC AC [facility] Isosorbide Mononitrate (Imdur) 60 mg PO DAILY [facility] Last Admin: 03/21/18 08:49 Dose: 60 mg Metoprolol Succinate (Toprol Xl) 200 mg PO Q12 [facility] Last Admin: 03/21/18 21:05 Dose: 200 mg Morphine Sulfate (Morphine Extended Release Tab) 30 mg PO Q12 [facility] Last Admin: 03/21/18 21:04 Dose: 30 mg Oxycodone HCl (Oxycodone Immediate Release Tab) 30 mg PO Q6H PRN PRN Reason: Pain, severe (8-10) Last Admin: 03/22/18 06:50 Dose: 30 mg Polyethylene Glycol (Miralax) 17 gm PO DAILY [facility] - Labs Labs: 03/22/18 06:00 03/22/18 07:00 PT 12.3 Seconds (9.8-13.1) 03/17/18 00:08 INR 1.1 03/17/18 00:08 APTT 31.5 Seconds (25.6-37.1) 03/17/18 00:08 Assessment and Plan - Assessment and Plan (Free Text) Plan: Reviewed CT scan and evaluated with resident, no soft tissue emphysema, noticeable large ulceration with sybil dislocation of lisfranc joint due to charcot
[2018-03-20] MEDS: Insulin Detemir 100 Units/ml Inj SC SCH (21:01)
[2018-03-20] MEDS ORDERED: Insulin Detemir 100 Units/ml Inj SC SCH (22:34)
[2018-03-21] MEDS: oxyCODONE 10 mg Immediate Release Tab PO PRN (03:58)
[2018-03-21] MEDS: Insulin Lispro (humaLOG) 100 Units/ml Inj SC SCH ×7 (07:30→21:06)
[2018-03-21] MEDS: Metoprolol Succinate 100 mg XL Tab PO SCH ×2 (08:50→21:05)
[2018-03-21] MEDS: Morphine 30 mg SR Tab PO SCH ×2 (09:00→21:04)
--- NOTE | 2018-03-21 10:36 | US ---
Date of service: 03/20/2018 PROCEDURE: Duplex ultrasound of the bilateral lower extremity arteries. HISTORY: BLE perfusion COMPARISON: None available. TECHNIQUE: Grayscale and duplex Doppler evaluation of the bilateral common femoral, superficial femoral, popliteal, posterior tibial and dorsalis pedis arteries was performed.. FINDINGS: RIGHT LOWER EXTREMITY: RIGHT COMMON FEMORAL ARTERY: Mild plaque. Monophasic flow. Maximal flow velocity of 64 cm/s. RIGHT SUPERFICIAL FEMORAL ARTERY: Monophasic flow. Mild plaque. Maximal flow velocity of 100 cm/s. RIGHT POPLITEAL ARTERY:Monophasic flow and plaque. Maximal flow velocity of 135 cm/s. RIGHT POSTERIOR TIBIAL ARTERY: Flat and monophasic flow with decreased velocity. Maximal flow velocity of 21 cm/s. RIGHT DORSALIS PEDIS ARTERY: Monophasic flow. Maximal flow velocity of 27 cm/s. LEFT LOWER EXTREMITY: LEFT COMMON FEMORAL ARTERY: Mild atherosclerotic change. Monophasic flow. Elevated velocity. Maximal flow velocity of 187 cm/s. LEFT SUPERFICIAL FEMORAL ARTERY: Mild plaque. No focal luminal narrowing. Monophasic flow. Elevated velocity in the mid left SFA. There is additionally some spectral broadening seen in the distal left SFA Maximal flow velocity of 162 cm/s. LEFT POPLITEAL ARTERY:Mild plaque. Monophasic flow Top-normal velocity Maximal flow velocity of 137 cm/s. LEFT POSTERIOR TIBIAL ARTERY: Mild plaque. Monophasic flow. Maximal flow velocity of 75 cm/s. LEFT DORSALIS PEDIS ARTERY: Monophasic flow. Maximal flow velocity of 84 cm/s. OTHER FINDINGS: None. IMPRESSION: Bilateral diffuse monophasic flow throughout both legs. Elevated velocity in the left common femoral artery and superficial femoral artery suggesting stenosis. Decreased flow in the right posterior tibial artery with flattened monophasic flow suggesting atherosclerotic stiffening. No significant velocity elevation in the right leg. CTA and/or MRA may prove helpful for further evaluation.
--- NOTE | 2018-03-21 10:38 | CP.PCM.PN ---
Subjective - Date & Time of Evaluation Date of Evaluation: 03/21/18 Time of Evaluation: 09:45 - Subjective Subjective: I reviewed the arterial duplex. There are areas of biphasic and monophasic flow throughout the lower extremity. There is flow in the dorsalis pedis. this is indicative of distal circulation. The patient has chronic renal insufficiency and therefore the use of IV contrast can worsen renal function. Therefore I recommend proceeding to the planned foot surgery. She is otherwise stable form a cardiac standpoint. Objective - Vital Signs/Intake and Output Vital Signs (last 24 hours): Temp Pulse Resp BP Pulse Ox 97.6 F 76 19 168/73 H 96 03/21/18 07:38 03/21/18 08:50 03/21/18 07:38 03/21/18 08:50 03/21/18 07:38 - Medications Medications: Current Medications Acetaminophen (Tylenol 325mg Tab) 650 mg PO Q6 PRN PRN Reason: Fever 100 or greater Last Admin: 03/17/18 17:43 Dose: 650 mg Alprazolam (Xanax) 0.25 mg PO BID PRN PRN Reason: Anxiety Stop: 03/24/18 03:56 Last Admin: 03/18/18 06:37 Dose: 0.25 mg Amlodipine Besylate (Norvasc) 10 mg PO DAILY [facility] Last Admin: 03/21/18 08:49 Dose: 10 mg Aspirin (Ecotrin) 81 mg PO DAILY [facility] Last Admin: 03/20/18 08:39 Dose: 81 mg Atorvastatin Calcium (Lipitor) 40 mg PO HS [facility] Last Admin: 03/20/18 21:00 Dose: 40 mg Clonidine HCl (Catapres) 0.2 mg PO Q12 [facility] Last Admin: 03/21/18 08:45 Dose: 0.2 mg Clopidogrel Bisulfate (Plavix) 75 mg PO DAILY [facility] Last Admin: 03/20/18 08:41 Dose: 75 mg Cyanocobalamin (Vitamin B12 1000 Mcg Tab) 1,000 mcg PO DAILY [facility] Last Admin: 03/21/18 08:52 Dose: 1,000 mcg Dextrose (Dextrose 50% Inj) 0 ml IV STAT PRN; Protocol PRN Reason: Hypoglycemia Protocol Dextrose (Glutose 15) 0 gm PO ONCE PRN; Protocol PRN Reason: Hypoglycemia Protocol Docusate Sodium (Colace) 100 mg PO BID [facility] Last Admin: 03/21/18 08:46 Dose: 100 mg Glucagon (Glucagen Diagnostic Kit) 0 mg IM STAT PRN; Protocol PRN Reason: Hypoglycemia Protocol Piperacillin Sod/Tazobactam (Sod 2.25 gm/ Sodium Chloride) 100 mls @ 100 mls/ hr IVPB Q6 [facility] PRN Reason: Protocol Last Admin: 03/21/18 09:01 Dose: 100 mls/hr Daptomycin 350 mg/ Sodium (Chloride) 100 mls @ 100 mls/hr IV Q48H [facility] PRN Reason: Protocol Stop: 03/23/18 12:16 Last Admin: 03/20/18 13:08 Dose: 100 mls/hr Insulin Detemir (Levemir) 70 units SC HS [facility] Insulin Human Lispro (Humalog) 0 units SC ACHS [facility] Last Admin: 03/21/18 07:30 Dose: Not Given Insulin Human Lispro (Humalog) 24 units SC AC [facility] Last Admin: 03/21/18 08:47 Dose: 24 units Isosorbide Mononitrate (Imdur) 60 mg PO DAILY [facility] Last Admin: 03/21/18 08:49 Dose: 60 mg Metoprolol Succinate (Toprol Xl) 200 mg PO Q12 [facility] Last Admin: 03/21/18 08:50 Dose: 200 mg Morphine Sulfate (Morphine Extended Release Tab) 30 mg PO Q12 [facility] Last Admin: 03/21/18 09:00 Dose: 30 mg Oxycodone HCl (Oxycodone Immediate Release Tab) 30 mg PO Q6H PRN PRN Reason: Pain, severe (8-10) Last Admin: 03/21/18 03:58 Dose: 30 mg - Labs Labs: 03/18/18 09:47 03/20/18 06:30 PT 12.3 Seconds (9.8-13.1) 03/17/18 00:08 INR 1.1 03/17/18 00:08 APTT 31.5 Seconds (25.6-37.1) 03/17/18 00:08 Assessment and Plan (1) Diabetic foot ulcer Status: Acute (2) CAD (coronary artery disease) Status: Acute (3) Hypertension Status: Chronic
--- NOTE | 2018-03-21 11:08 | CP.PCM.PN ---
Subjective - Date & Time of Evaluation Date of Evaluation: 03/21/18 Time of Evaluation: 11:11 - Subjective Subjective: C/O SEVERE L LEG/FOOT PAIN THIS AM Objective - Vital Signs/Intake and Output Vital Signs (last 24 hours): Temp Pulse Resp BP Pulse Ox 97.6 F 76 19 168/73 H 96 03/21/18 07:38 03/21/18 08:50 03/21/18 07:38 03/21/18 08:50 03/21/18 07:38 - Medications Medications: Current Medications Acetaminophen (Tylenol 325mg Tab) 650 mg PO Q6 PRN PRN Reason: Fever 100 or greater Last Admin: 03/17/18 17:43 Dose: 650 mg Alprazolam (Xanax) 0.25 mg PO BID PRN PRN Reason: Anxiety Stop: 03/24/18 03:56 Last Admin: 03/18/18 06:37 Dose: 0.25 mg Amlodipine Besylate (Norvasc) 10 mg PO DAILY [facility] Last Admin: 03/21/18 08:49 Dose: 10 mg Aspirin (Ecotrin) 81 mg PO DAILY [facility] Last Admin: 03/20/18 08:39 Dose: 81 mg Atorvastatin Calcium (Lipitor) 40 mg PO HS [facility] Last Admin: 03/20/18 21:00 Dose: 40 mg Clonidine HCl (Catapres) 0.2 mg PO Q12 [facility] Last Admin: 03/21/18 08:45 Dose: 0.2 mg Clopidogrel Bisulfate (Plavix) 75 mg PO DAILY [facility] Last Admin: 03/20/18 08:41 Dose: 75 mg Cyanocobalamin (Vitamin B12 1000 Mcg Tab) 1,000 mcg PO DAILY [facility] Last Admin: 03/21/18 08:52 Dose: 1,000 mcg Dextrose (Dextrose 50% Inj) 0 ml IV STAT PRN; Protocol PRN Reason: Hypoglycemia Protocol Dextrose (Glutose 15) 0 gm PO ONCE PRN; Protocol PRN Reason: Hypoglycemia Protocol Docusate Sodium (Colace) 100 mg PO BID [facility] Last Admin: 03/21/18 08:46 Dose: 100 mg Glucagon (Glucagen Diagnostic Kit) 0 mg IM STAT PRN; Protocol PRN Reason: Hypoglycemia Protocol Piperacillin Sod/Tazobactam (Sod 2.25 gm/ Sodium Chloride) 100 mls @ 100 mls/ hr IVPB Q6 [facility] PRN Reason: Protocol Last Admin: 03/21/18 09:01 Dose: 100 mls/hr Daptomycin 350 mg/ Sodium (Chloride) 100 mls @ 100 mls/hr IV Q48H [facility] PRN Reason: Protocol Stop: 03/23/18 12:16 Last Admin: 03/20/18 13:08 Dose: 100 mls/hr Insulin Detemir (Levemir) 70 units SC HS [facility] Insulin Human Lispro (Humalog) 0 units SC ACHS [facility] Last Admin: 03/21/18 07:30 Dose: Not Given Insulin Human Lispro (Humalog) 24 units SC AC [facility] Last Admin: 03/21/18 08:47 Dose: 24 units Isosorbide Mononitrate (Imdur) 60 mg PO DAILY [facility] Last Admin: 03/21/18 08:49 Dose: 60 mg Metoprolol Succinate (Toprol Xl) 200 mg PO Q12 [facility] Last Admin: 03/21/18 08:50 Dose: 200 mg Morphine Sulfate (Morphine Extended Release Tab) 30 mg PO Q12 [facility] Last Admin: 03/21/18 09:00 Dose: 30 mg Oxycodone HCl (Oxycodone Immediate Release Tab) 30 mg PO Q6H PRN PRN Reason: Pain, severe (8-10) Last Admin: 03/21/18 03:58 Dose: 30 mg - Labs Labs: 03/18/18 09:47 03/20/18 06:30 PT 12.3 Seconds (9.8-13.1) 03/17/18 00:08 INR 1.1 03/17/18 00:08 APTT 31.5 Seconds (25.6-37.1) 03/17/18 00:08 - Constitutional Appears: In Acute Distress - Head Exam Head Exam: ATRAUMATIC, NORMAL INSPECTION, NORMOCEPHALIC - Eye Exam Eye Exam: EOMI, Normal appearance, PERRL Pupil Exam: NORMAL ACCOMODATION, PERRL - ENT Exam ENT Exam: Mucous Membranes Moist, Normal Exam - Neck Exam Neck Exam: Full ROM, Normal Inspection. absent: Lymphadenopathy - Respiratory Exam Respiratory Exam: Clear to Ausculation Bilateral, NORMAL BREATHING PATTERN - Cardiovascular Exam Cardiovascular Exam: REGULAR RHYTHM, +S1, +S2. absent: Murmur - GI/Abdominal Exam GI & Abdominal Exam: Soft, Normal Bowel Sounds. absent: Tenderness - Rectal Exam Rectal Exam: NORMAL INSPECTION - Extremities Exam Extremities Exam: Tenderness. absent: Joint Swelling, Pedal Edema Additional comments: CELLULITIS OF L FOOT/LEG ULCERATION R FOOT - Back Exam Back Exam: NORMAL INSPECTION - Neurological Exam Neurological Exam: Alert, Awake, CN II-XII Intact, Oriented x3 - Psychiatric Exam Psychiatric exam: Normal Affect, Normal Mood - Skin Skin Exam: Dry, Warm Assessment and Plan - Assessment and Plan (Free Text) Assessment: OSTEOMYELITIS OF L FOOT/LEG CELLULITIS OF L LEG/FOOT DM TYPE 2--UNCONTROLLED HTN SEVERE PERIPHERAL VASCULAR DZ HX OF CHF-STABLE Plan: AWAIT CARDIAC CLEARANCE PRIOR TO PODIATRY SURGERY ADD IV DILAUDID FOR PAIN
--- NOTE | 2018-03-21 14:36 | PN ---
Copied To: Yesika Vogel MD Attending MD: Yesika Vogel MD DATE: 03/21/2018 ENDO FOLLOWUP NOTE LOCATION: In room 656. 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 Her glycemic levels are fluctuating, but improved and the glucose levels overnight have ranged from 226 to 236 mg/dL. LABORATORY DATA: Her latest chemistry showed a BUN of 58, sodium 139, potassium 4.9, chloride 100, CO2 of 31, glucose 365, and creatinine 1.8. ASSESSMENT AND PLAN: So at this time, we will continue the modified basal and bolus insulin regimen as ordered. We will continue the higher dose of Humalog given as 24 units subcutaneous t.i.d. before meals to start today as ordered. We will also continue the basal insulin given as Levemir at 70 units subcutaneous at bedtime daily to start tonight. We will continue the low-dose correction scale using Humalog insulin as given. We will obtain serial chemistries and supplement accordingly as needed. We will follow. Yesika Vogel MD
[2018-03-22] MEDS: oxyCODONE 10 mg Immediate Release Tab PO PRN ×3 (06:50→19:38)
[2018-03-22 07:01] LABS: BASO # 0.1 K/uL (0.0-0.2); BASO % 0.8 % (0.0-2.0); EOS # 0.1 K/uL (0.0-0.7); EOS % 1.9 % (0.0-4.0); HEMOGLOBIN 8.5 g/dL (12.0-16.0); LYMPH # 1.6 K/uL (1.0-4.3); LYMPH % 22.9 % (20.0-40.0); MEAN CELL VOLUME 82.2 fl (81.0-99.0); MEAN CORPUSCULAR HEMOGLOBIN 26.5 pg (27.0-31.0); MEAN CORPUSCULAR HGB CONC 32.2 g/dL (33.0-37.0); MEAN PLATELET VOLUME 7.8 fl (7.2-11.7); MONO # 0.5 K/uL (0.0-0.8); MONO % 7.4 % (0.0-10.0); NEUT # 4.7 K/uL (1.8-7.0); NRBC % 0.1 % (0.0-0.0); RBC 3.2 Mil/uL (3.80-5.20); RED CELL DISTRIBUTION WIDTH 16.6 % (11.5-14.5)
[2018-03-22 07:29] LABS: ALBUMIN 3.4 g/dL (3.5-5.0); CALCIUM 9.2 mg/dL (8.4-10.2)
[2018-03-22] MEDS: Insulin Lispro (humaLOG) 100 Units/ml Inj SC SCH ×6 (07:30→21:39)
[2018-03-22] MEDS ORDERED: Insulin Lispro (humaLOG) 100 Units/ml Inj SC SCH (07:30)
--- NOTE | 2018-03-22 08:17 | CP.PCM.PN ---
Subjective - Date & Time of Evaluation Date of Evaluation: 03/22/18 Time of Evaluation: 08:15 - Subjective Subjective: Podiatry progress note for Dr. Macdonald: 51 yo female seen and evaluated for LLE pain, redness, swelling and right ulceration. Patients dressings and left foot posterior splint intact. Patient is resting in bed comfortably. She states that she is in less pain today. Denies any acute events overnight. Denies N/V/F/SOB/CP. Objective - Vital Signs/Intake and Output Vital Signs (last 24 hours): Temp Pulse Resp BP Pulse Ox 98.1 F 70 19 159/60 H 95 03/22/18 07:46 03/22/18 07:46 03/22/18 07:46 03/22/18 07:46 03/22/18 07:46 - Medications Medications: Current Medications Acetaminophen (Tylenol 325mg Tab) 650 mg PO Q6 PRN PRN Reason: Fever 100 or greater Last Admin: 03/17/18 17:43 Dose: 650 mg Alprazolam (Xanax) 0.25 mg PO BID PRN PRN Reason: Anxiety Stop: 03/24/18 03:56 Last Admin: 03/18/18 06:37 Dose: 0.25 mg Amlodipine Besylate (Norvasc) 10 mg PO DAILY [facility] Last Admin: 03/21/18 08:49 Dose: 10 mg Aspirin (Ecotrin) 81 mg PO DAILY [facility] Last Admin: 03/20/18 08:39 Dose: 81 mg Atorvastatin Calcium (Lipitor) 40 mg PO HS [facility] Last Admin: 03/21/18 21:04 Dose: 40 mg Clonidine HCl (Catapres) 0.2 mg PO Q12 [facility] Last Admin: 03/21/18 21:04 Dose: 0.2 mg Clopidogrel Bisulfate (Plavix) 75 mg PO DAILY [facility] Last Admin: 03/20/18 08:41 Dose: 75 mg Cyanocobalamin (Vitamin B12 1000 Mcg Tab) 1,000 mcg PO DAILY [facility] Last Admin: 03/21/18 08:52 Dose: 1,000 mcg Dextrose (Dextrose 50% Inj) 0 ml IV STAT PRN; Protocol PRN Reason: Hypoglycemia Protocol Dextrose (Glutose 15) 0 gm PO ONCE PRN; Protocol PRN Reason: Hypoglycemia Protocol Docusate Sodium (Colace) 100 mg PO BID [facility] Last Admin: 03/21/18 16:33 Dose: 100 mg Glucagon (Glucagen Diagnostic Kit) 0 mg IM STAT PRN; Protocol PRN Reason: Hypoglycemia Protocol Hydromorphone HCl (Dilaudid) 1 mg IVP Q4 PRN PRN Reason: Pain, moderate (4-7) Last Admin: 03/22/18 02:32 Dose: 1 mg Piperacillin Sod/Tazobactam (Sod 2.25 gm/ Sodium Chloride) 100 mls @ 100 mls/ hr IVPB Q6 [facility] PRN Reason: Protocol Last Admin: 03/22/18 03:04 Dose: 100 mls/hr Daptomycin 350 mg/ Sodium (Chloride) 100 mls @ 100 mls/hr IV Q48H [facility] PRN Reason: Protocol Stop: 03/23/18 12:16 Last Admin: 03/20/18 13:08 Dose: 100 mls/hr Insulin Detemir (Levemir) 70 units SC HS [facility] Last Admin: 03/21/18 21:05 Dose: 70 u Insulin Human Lispro (Humalog) 0 units SC ACHS [facility] Last Admin: 03/21/18 21:06 Dose: Not Given Insulin Human Lispro (Humalog) 28 units SC AC [facility] Isosorbide Mononitrate (Imdur) 60 mg PO DAILY [facility] Last Admin: 03/21/18 08:49 Dose: 60 mg Metoprolol Succinate (Toprol Xl) 200 mg PO Q12 [facility] Last Admin: 03/21/18 21:05 Dose: 200 mg Morphine Sulfate (Morphine Extended Release Tab) 30 mg PO Q12 [facility] Last Admin: 03/21/18 21:04 Dose: 30 mg Oxycodone HCl (Oxycodone Immediate Release Tab) 30 mg PO Q6H PRN PRN Reason: Pain, severe (8-10) Last Admin: 03/22/18 06:50 Dose: 30 mg - Labs Labs: 03/22/18 06:00 03/22/18 07:00 PT 12.3 Seconds (9.8-13.1) 03/17/18 00:08 INR 1.1 03/17/18 00:08 APTT 31.5 Seconds (25.6-37.1) 03/17/18 00:08 - Constitutional Appears: Well, Non-toxic, No Acute Distress - Head Exam Head Exam: ATRAUMATIC, NORMOCEPHALIC - Extremities Exam Additional comments: Vasc: DP/PT pulses palpable 1/4 on the right. Temperature gradient warm to warm on the right. Cap refill time <3 sec to all digits Ortho: No tenderness upon palpation of right lower extremity. Neuro: Protective sensation absent bilaterally, gross sensation diminished Derm: Right: Hyperpigmented, thickened skin right. Ulceration measuring 0.9cm x 0.7cm x 0.2cm noted to plantar midfoot on the right. Wound margins are hyperkeratotic, base is granular 100%. No malodor, No drainage. no tracking, undermining or probing to bone, no purulence, no fluctuance or abscess noted. Left: Left plantar midfoot ulceration measuring approximately 2.5 X 1.7 X 0.3 cm. Wound margins are hyperkeratotic. No malodor, minimal serous drainage, no tracking, no undermining no probe to bone - Neurological Exam Neurological Exam: Alert, Awake, Oriented x3 - Psychiatric Exam Psychiatric exam: Normal Affect, Normal Mood Assessment and Plan - Assessment and Plan (Free Text) Assessment: 52 yo female, seen and evaluated, for left Charcot arthropathy and right superficial ulceration Plan: Patient seen and evaluated at bedside Labs, vitals and charts reviewed; Afebrile, absent leukocytosis X-rays of the B/L foot reviewed (03/16): Abnormal osseous morphology consisted with Charcot arthropathy on the left side; TMA on the right side Patient to remain strict NWB to LLE Infectious disease consulted; recs appreciated Wound culture taken (03/17); Cornybacterium CT of LLE (03/17); Severe Charcot Arthropathy Posterior splint left intact to left foot DSD applied to right plantar ulceration LE US; monophasic flow through both legs; stenosis left common femoral artery and superficial fem; atheroscelrotic stiffening in right posterior tibial artery Patient demonstrates verbal understanding and is aware there is a plan for surgery Medical clearance and Cardiology clearance appreciated, recommended to proceed with surgical planning of charcot reconstruction; surgery booked for [id number] 28. Podiatry will continue to follow while in house
[2018-03-22] MEDS: Morphine 30 mg SR Tab PO SCH ×2 (09:00→21:35)
--- NOTE | 2018-03-22 09:40 | CP.PCM.PN ---
Subjective - Date & Time of Evaluation Date of Evaluation: 03/22/18 Time of Evaluation: 09:41 - Subjective Subjective: CONTINUES TO HAVE L LEG/FOOT PAIN Objective - Vital Signs/Intake and Output Vital Signs (last 24 hours): Temp Pulse Resp BP Pulse Ox 98.1 F 70 19 159/60 H 95 03/22/18 07:46 03/22/18 07:46 03/22/18 07:46 03/22/18 07:46 03/22/18 07:46 - Medications Medications: Current Medications Acetaminophen (Tylenol 325mg Tab) 650 mg PO Q6 PRN PRN Reason: Fever 100 or greater Last Admin: 03/17/18 17:43 Dose: 650 mg Alprazolam (Xanax) 0.25 mg PO BID PRN PRN Reason: Anxiety Stop: 03/24/18 03:56 Last Admin: 03/18/18 06:37 Dose: 0.25 mg Amlodipine Besylate (Norvasc) 10 mg PO DAILY [facility] Last Admin: 03/21/18 08:49 Dose: 10 mg Aspirin (Ecotrin) 81 mg PO DAILY [facility] Last Admin: 03/20/18 08:39 Dose: 81 mg Atorvastatin Calcium (Lipitor) 40 mg PO HS [facility] Last Admin: 03/21/18 21:04 Dose: 40 mg Clonidine HCl (Catapres) 0.2 mg PO Q12 [facility] Last Admin: 03/21/18 21:04 Dose: 0.2 mg Clopidogrel Bisulfate (Plavix) 75 mg PO DAILY [facility] Last Admin: 03/20/18 08:41 Dose: 75 mg Cyanocobalamin (Vitamin B12 1000 Mcg Tab) 1,000 mcg PO DAILY [facility] Last Admin: 03/21/18 08:52 Dose: 1,000 mcg Dextrose (Dextrose 50% Inj) 0 ml IV STAT PRN; Protocol PRN Reason: Hypoglycemia Protocol Dextrose (Glutose 15) 0 gm PO ONCE PRN; Protocol PRN Reason: Hypoglycemia Protocol Glucagon (Glucagen Diagnostic Kit) 0 mg IM STAT PRN; Protocol PRN Reason: Hypoglycemia Protocol Hydromorphone HCl (Dilaudid) 1 mg IVP Q4 PRN PRN Reason: Pain, moderate (4-7) Last Admin: 03/22/18 02:32 Dose: 1 mg Piperacillin Sod/Tazobactam (Sod 2.25 gm/ Sodium Chloride) 100 mls @ 100 mls/ hr IVPB Q6 [facility] PRN Reason: Protocol Last Admin: 03/22/18 03:04 Dose: 100 mls/hr Daptomycin 350 mg/ Sodium (Chloride) 100 mls @ 100 mls/hr IV Q48H [facility] PRN Reason: Protocol Stop: 03/23/18 12:16 Last Admin: 03/20/18 13:08 Dose: 100 mls/hr Insulin Detemir (Levemir) 70 units SC HS [facility] Last Admin: 03/21/18 21:05 Dose: 70 u Insulin Human Lispro (Humalog) 0 units SC ACHS [facility] Last Admin: 03/21/18 21:06 Dose: Not Given Insulin Human Lispro (Humalog) 28 units SC AC [facility] Isosorbide Mononitrate (Imdur) 60 mg PO DAILY [facility] Last Admin: 03/21/18 08:49 Dose: 60 mg Metoprolol Succinate (Toprol Xl) 200 mg PO Q12 [facility] Last Admin: 03/21/18 21:05 Dose: 200 mg Morphine Sulfate (Morphine Extended Release Tab) 30 mg PO Q12 [facility] Last Admin: 03/21/18 21:04 Dose: 30 mg Oxycodone HCl (Oxycodone Immediate Release Tab) 30 mg PO Q6H PRN PRN Reason: Pain, severe (8-10) Last Admin: 03/22/18 06:50 Dose: 30 mg Polyethylene Glycol (Miralax) 17 gm PO DAILY [facility] - Labs Labs: 03/22/18 06:00 03/22/18 07:00 PT 12.3 Seconds (9.8-13.1) 03/17/18 00:08 INR 1.1 03/17/18 00:08 APTT 31.5 Seconds (25.6-37.1) 03/17/18 00:08 - Constitutional Appears: In Acute Distress - Head Exam Head Exam: ATRAUMATIC, NORMAL INSPECTION, NORMOCEPHALIC - Eye Exam Eye Exam: EOMI, Normal appearance, PERRL Pupil Exam: NORMAL ACCOMODATION, PERRL - ENT Exam ENT Exam: Mucous Membranes Moist, Normal Exam - Neck Exam Neck Exam: Full ROM, Normal Inspection. absent: Lymphadenopathy - Respiratory Exam Respiratory Exam: Clear to Ausculation Bilateral, NORMAL BREATHING PATTERN - Cardiovascular Exam Cardiovascular Exam: REGULAR RHYTHM, +S1, +S2. absent: Murmur - GI/Abdominal Exam GI & Abdominal Exam: Soft, Normal Bowel Sounds. absent: Tenderness - Rectal Exam Rectal Exam: NORMAL INSPECTION - Extremities Exam Extremities Exam: Full ROM, Normal Capillary Refill, Normal Inspection, Tenderness. absent: Joint Swelling, Pedal Edema Additional comments: CELLULITIS OF L FOOT - Back Exam Back Exam: NORMAL INSPECTION - Neurological Exam Neurological Exam: Alert, Awake, CN II-XII Intact, Normal Gait, Oriented x3 - Psychiatric Exam Psychiatric exam: Normal Affect, Normal Mood - Skin Skin Exam: Dry, Intact, Normal Color, Warm Assessment and Plan - Assessment and Plan (Free Text) Assessment: OSTEOMYELITIS OF L FOOT DM HTN PVD Plan: MEDICALLY CLEARED FOR SURGERY
[2018-03-22] MEDS: Metoprolol Succinate 100 mg XL Tab PO SCH ×2 (10:33→21:36)
--- NOTE | 2018-03-22 15:59 | PN ---
Copied To: Yesika Vogel MD Attending MD: Yesika Vogel MD DATE: 03/22/2018 ENDO FOLLOWUP NOTE LOCATION: In room 656, bed 2. SUBJECTIVE: This is a 52-year-old female with recent uncontrolled type 2 insulin-requiring diabetes, presenting here with marked hyperglycemic accelerations related to a subtherapeutic insulin regimen and is now being followed closely for metabolic management. Her glycemic levels are still fluctuating, but improved and the glucose values overnight have ranged from 291 to 363 mg/dL. LABORATORY DATA: Her latest chemistry showed a BUN of 36, sodium 139, potassium 5, chloride 102, CO2 of 33, glucose 298, and creatinine 1.3. ASSESSMENT: This is a 52-year-old female with uncontrolled and decompensated type 2 insulin-requiring diabetes with tremendous increased insulin resistance and further impaired glucose tolerance thereof and clearly has imperative need for higher dosing of her insulin regimen to override the resistance as noted. She also has diabetic microvascular complications of retinopathy, polyneuropathy and underlying early nephropathy with chronic kidney disease. Moreover, she has diabetic macrovascular complications of coronary artery disease and peripheral arterial disease and vasculopathy. PLAN OF MANAGEMENT: We will modify her current basal and bolus insulin regimen today to a much higher dosing combination to override the increased insulin resistance thereof and we will increase the Levemir to 80 units subcu at bedtime daily to start tonight. We will also increase her Humalog to 34 units subcu t.i.d. before meals to start at lunchtime today as ordered. We will continue the low-dose correction scale using Humalog insulin as given. We will obtain serial chemistries and supplement accordingly as needed. We will follow. Yesika Vogel MD
[2018-03-22] MEDS: Insulin Detemir 100 Units/ml Inj SC SCH (21:38)
[2018-03-23] MEDS: oxyCODONE 10 mg Immediate Release Tab PO PRN (03:09)
--- NOTE | 2018-03-23 08:24 | CP.PCM.CON ---
History of Present Illness - History of Present Illness History of Present Illness: Psychiatry consult note CC: "I keep having panic attacks." HPI: 51 yo female w/ h/o DMII, CAD, HTN, CHF, admitted w/ osteomyelitis and cellulitis of L foot/leg, now pending surgery. Patient reports that she has been suffering from chronic anxiety and panic attacks for the past two years, but reports that the symptoms have been getting worse in the past few weeks. She denies chronic depression, but does report feeling grief over the recent of two of her sisters. She denies AH/VH/SI/HI/paranoia/delusions/ashish. We discussed treatment w/ psychotropic medications and she reports that she is interested in treatment for her anxiety, but does not want to take an antidepressant at this time. PPHx: No current psychiatric tx. No h/o psychiatric admissions; patient received Xanax from her PMD in the past. PMHx: DM, HTN, hypercholesterolemia, CHF PSHx: Appendectomy, right foot TMA w/Achilles lengthening, right leg stents, coronary stent placement x2 SHx: denies ETOH, former tobacco use (1PPD for 15 years - stopped 6 years ago), denies illicit drug use; lives w/ adult daughter Allergies: NKDA FHx: Denies family h/o mental illness MSE: A + O x 3, calm, cooperative, good eye contact, mood/affect- anxious, thought process- linear/organized, thought content- no delusions, no AH/VH/SI/HI ; good I/J Impression: 51 yo female w/ h/o DMII, CAD, HTN, CHF, admitted w/ osteomyelitis and cellulitis of L foot/leg, now pending surgery; patient likely has generalized anxiety disorder w/ panic attacks. -No acute inpatient psychiatric admission indicated -Start Buspar 5 mg PO BID Past Patient History - Infectious Disease Hx of Infectious Diseases: None - Tetanus Immunizations Tetanus Immunization: Unknown - Past Medical History & Family History Past Medical History?: Yes - Past Social History Smoking Status: Former Smoker Home Situation {Lives}: With Family - CARDIAC Hx Congestive Heart Failure: No Hx Hypercholesterolemia: Yes Hx Hypertension: Yes Hx Peripheral Edema: Yes - PULMONARY Hx Chronic Obstructive Pulmonary Disease (COPD): No - NEUROLOGICAL Hx Seizures: No - HEENT Hx HEENT Problems: No - RENAL Hx Chronic Kidney Disease: No - ENDOCRINE/METABOLIC Hx Hypothyroidism: No - HEMATOLOGICAL/ONCOLOGICAL Hx Anemia: Yes Hx Human Immunodeficiency Virus (HIV): No - INTEGUMENTARY Hx Dermatological Problems: No - MUSCULOSKELETAL/RHEUMATOLOGICAL Hx Arthritis: Yes Hx Rheumatoid Arthritis: No - GASTROINTESTINAL Hx Gastrointestinal Disorders: No - GENITOURINARY/GYNECOLOGICAL Hx Sexually Transmitted Disorders: No - PSYCHIATRIC Hx Anxiety: Yes Hx Depression: Yes - SURGICAL HISTORY Hx Appendectomy: Yes Hx Coronary Stent: Yes - ANESTHESIA Hx Anesthesia: Yes Hx Anesthesia Reactions: Yes (CAN'T BREATH-ADMITTED TO ICU) Hx Malignant Hyperthermia: No Meds Allergies/Adverse Reactions: Allergies Allergy/AdvReac Type Severity Reaction Status Date / Time No Known Allergies Allergy Verified 03/17/18 04:21 - Medications Medications: Current Medications Acetaminophen (Tylenol 325mg Tab) 650 mg PO Q6 PRN PRN Reason: Fever 100 or greater Last Admin: 03/17/18 17:43 Dose: 650 mg Alprazolam (Xanax) 0.25 mg PO BID PRN PRN Reason: Anxiety Stop: 03/24/18 03:56 Last Admin: 03/18/18 06:37 Dose: 0.25 mg Amlodipine Besylate (Norvasc) 10 mg PO DAILY [facility] Last Admin: 03/22/18 09:30 Dose: 10 mg Aspirin (Ecotrin) 81 mg PO DAILY [facility] Last Admin: 03/20/18 08:39 Dose: 81 mg Atorvastatin Calcium (Lipitor) 40 mg PO HS [facility] Last Admin: 03/22/18 21:37 Dose: 40 mg Clonidine HCl (Catapres) 0.2 mg PO Q12 [facility] Last Admin: 03/22/18 21:36 Dose: 0.2 mg Clopidogrel Bisulfate (Plavix) 75 mg PO DAILY [facility] Last Admin: 03/20/18 08:41 Dose: 75 mg Cyanocobalamin (Vitamin B12 1000 Mcg Tab) 1,000 mcg PO DAILY [facility] Last Admin: 03/22/18 09:00 Dose: 1,000 mcg Dextrose (Dextrose 50% Inj) 0 ml IV STAT PRN; Protocol PRN Reason: Hypoglycemia Protocol Dextrose (Glutose 15) 0 gm PO ONCE PRN; Protocol PRN Reason: Hypoglycemia Protocol Glucagon (Glucagen Diagnostic Kit) 0 mg IM STAT PRN; Protocol PRN Reason: Hypoglycemia Protocol Hydromorphone HCl (Dilaudid) 1 mg IVP Q4 PRN PRN Reason: Pain, moderate (4-7) Last Admin: 03/22/18 23:36 Dose: 1 mg Piperacillin Sod/Tazobactam (Sod 2.25 gm/ Sodium Chloride) 100 mls @ 100 mls/ hr IVPB Q6 [facility] PRN Reason: Protocol Last Admin: 03/23/18 03:10 Dose: 100 mls/hr Daptomycin 350 mg/ Sodium (Chloride) 100 mls @ 100 mls/hr IV Q48H [facility] PRN Reason: Protocol Stop: 03/23/18 12:16 Last Admin: 03/22/18 10:37 Dose: 100 mls/hr Insulin Detemir (Levemir) 80 units SC HS [facility] Last Admin: 03/22/18 21:38 Dose: 281 u Insulin Human Lispro (Humalog) 0 units SC ACHS [facility] Last Admin: 03/22/18 21:39 Dose: Not Given Insulin Human Lispro (Humalog) 34 units SC AC [facility] Last Admin: 03/22/18 16:39 Dose: 34 units Isosorbide Mononitrate (Imdur) 60 mg PO DAILY [facility] Last Admin: 03/22/18 09:32 Dose: 60 mg Metoprolol Succinate (Toprol Xl) 200 mg PO Q12 [facility] Last Admin: 03/22/18 21:36 Dose: 200 mg Morphine Sulfate (Morphine Extended Release Tab) 30 mg PO Q12 [facility] Last Admin: 03/22/18 21:35 Dose: 30 mg Oxycodone HCl (Oxycodone Immediate Release Tab) 30 mg PO Q6H PRN PRN Reason: Pain, severe (8-10) Last Admin: 03/23/18 03:09 Dose: 30 mg Polyethylene Glycol (Miralax) 17 gm PO DAILY [facility] Results - Vital Signs Recent Vital Signs: Last Vital Signs Temp 97.9 F 03/23/18 00:05 Pulse 69 03/23/18 00:05 Resp 18 03/23/18 00:05 BP 163/68 H 03/23/18 00:05 Pulse Ox 95 03/23/18 00:05 - Labs Result Diagrams: 03/22/18 06:00 03/22/18 07:00 Labs: Laboratory Results - last 24 hr 03/22/18 03/22/18 03/22/18 05:44 11:00 15:41 POC Glucose (mg/dL) 291 H 363 H 348 H 03/22/18 03/23/18 21:22 06:21 POC Glucose (mg/dL) 287 H 253 H
--- NOTE | 2018-03-23 08:25 | CP.PCM.PN ---
Subjective - Date & Time of Evaluation Date of Evaluation: 03/23/18 Time of Evaluation: 08:22 - Subjective Subjective: Podiatry progress note for Dr. Macdonald: 51 yo female seen and evaluated for LLE pain, redness, swelling and right ulceration. Patients dressings and left foot posterior splint intact. Patient is resting in bed comfortably. She states that she is in less pain today. Denies any acute events overnight. Denies N/V/F/SOB/CP. Objective - Vital Signs/Intake and Output Vital Signs (last 24 hours): Temp Pulse Resp BP Pulse Ox 97.9 F 69 18 163/68 H 95 03/23/18 00:05 03/23/18 00:05 03/23/18 00:05 03/23/18 00:05 03/23/18 00:05 - Medications Medications: Current Medications Acetaminophen (Tylenol 325mg Tab) 650 mg PO Q6 PRN PRN Reason: Fever 100 or greater Last Admin: 03/17/18 17:43 Dose: 650 mg Alprazolam (Xanax) 0.25 mg PO BID PRN PRN Reason: Anxiety Stop: 03/24/18 03:56 Last Admin: 03/18/18 06:37 Dose: 0.25 mg Amlodipine Besylate (Norvasc) 10 mg PO DAILY [facility] Last Admin: 03/22/18 09:30 Dose: 10 mg Aspirin (Ecotrin) 81 mg PO DAILY [facility] Last Admin: 03/20/18 08:39 Dose: 81 mg Atorvastatin Calcium (Lipitor) 40 mg PO HS [facility] Last Admin: 03/22/18 21:37 Dose: 40 mg Clonidine HCl (Catapres) 0.2 mg PO Q12 [facility] Last Admin: 03/22/18 21:36 Dose: 0.2 mg Clopidogrel Bisulfate (Plavix) 75 mg PO DAILY [facility] Last Admin: 03/20/18 08:41 Dose: 75 mg Cyanocobalamin (Vitamin B12 1000 Mcg Tab) 1,000 mcg PO DAILY [facility] Last Admin: 03/22/18 09:00 Dose: 1,000 mcg Dextrose (Dextrose 50% Inj) 0 ml IV STAT PRN; Protocol PRN Reason: Hypoglycemia Protocol Dextrose (Glutose 15) 0 gm PO ONCE PRN; Protocol PRN Reason: Hypoglycemia Protocol Glucagon (Glucagen Diagnostic Kit) 0 mg IM STAT PRN; Protocol PRN Reason: Hypoglycemia Protocol Hydromorphone HCl (Dilaudid) 1 mg IVP Q4 PRN PRN Reason: Pain, moderate (4-7) Last Admin: 03/22/18 23:36 Dose: 1 mg Piperacillin Sod/Tazobactam (Sod 2.25 gm/ Sodium Chloride) 100 mls @ 100 mls/ hr IVPB Q6 [facility] PRN Reason: Protocol Last Admin: 03/23/18 03:10 Dose: 100 mls/hr Daptomycin 350 mg/ Sodium (Chloride) 100 mls @ 100 mls/hr IV Q48H [facility] PRN Reason: Protocol Stop: 03/23/18 12:16 Last Admin: 03/22/18 10:37 Dose: 100 mls/hr Insulin Detemir (Levemir) 80 units SC HS [facility] Last Admin: 03/22/18 21:38 Dose: 281 u Insulin Human Lispro (Humalog) 0 units SC ACHS [facility] Last Admin: 03/22/18 21:39 Dose: Not Given Insulin Human Lispro (Humalog) 34 units SC AC [facility] Last Admin: 03/22/18 16:39 Dose: 34 units Isosorbide Mononitrate (Imdur) 60 mg PO DAILY [facility] Last Admin: 03/22/18 09:32 Dose: 60 mg Metoprolol Succinate (Toprol Xl) 200 mg PO Q12 [facility] Last Admin: 03/22/18 21:36 Dose: 200 mg Morphine Sulfate (Morphine Extended Release Tab) 30 mg PO Q12 [facility] Last Admin: 03/22/18 21:35 Dose: 30 mg Oxycodone HCl (Oxycodone Immediate Release Tab) 30 mg PO Q6H PRN PRN Reason: Pain, severe (8-10) Last Admin: 03/23/18 03:09 Dose: 30 mg Polyethylene Glycol (Miralax) 17 gm PO DAILY [facility] - Labs Labs: 03/22/18 06:00 03/22/18 07:00 PT 12.3 Seconds (9.8-13.1) 03/17/18 00:08 INR 1.1 03/17/18 00:08 APTT 31.5 Seconds (25.6-37.1) 03/17/18 00:08 - Constitutional Appears: Well, Non-toxic, No Acute Distress - Head Exam Head Exam: ATRAUMATIC, NORMOCEPHALIC - Extremities Exam Additional comments: Vasc: DP/PT pulses palpable 1/4 on the right. Temperature gradient warm to warm on the right. Cap refill time <3 sec to all digits Ortho: No tenderness upon palpation of right lower extremity. Neuro: Protective sensation absent bilaterally, gross sensation diminished Derm: Right: Hyperpigmented, thickened skin right. Ulceration measuring 0.7cm x 0.6cm x 0.2cm noted to plantar midfoot on the right. Wound margins are hyperkeratotic, base is granular 100%. No malodor, No drainage. no tracking, undermining or probing to bone, no purulence, no fluctuance or abscess noted. Left: Left plantar midfoot ulceration measuring approximately 2.5 X 1.7 X 0.3 cm. Wound margins are hyperkeratotic. No malodor, minimal serous drainage, no tracking, no undermining no probe to bone - Neurological Exam Neurological Exam: Alert, Awake, Oriented x3 - Psychiatric Exam Psychiatric exam: Normal Affect, Normal Mood Assessment and Plan - Assessment and Plan (Free Text) Assessment: 52 yo female, seen and evaluated, for left Charcot arthropathy and right superficial ulceration Plan: Patient seen and evaluated at bedside Discussed in detail with Dr. Macdonald Labs, vitals and charts reviewed; Afebrile, absent leukocytosis X-rays of the B/L foot reviewed (03/16): Abnormal osseous morphology consisted with Charcot arthropathy on the left side; TMA on the right side Patient to remain strict NWB to LLE Infectious disease consulted; recs appreciated Wound culture taken (03/17); Cornybacterium CT of LLE (03/17); Severe Charcot Arthropathy Posterior splint left intact to left foot DSD applied to right plantar ulceration LE US; monophasic flow through both legs; stenosis left common femoral artery and superficial fem; atheroscelrotic stiffening in right posterior tibial artery Patient demonstrates verbal understanding and is aware there is a plan for surgery Medical clearance and Cardiology clearance appreciated, recommended to proceed with surgical planning of charcot reconstruction; surgery booked for [id number] 28. Psych consult ordered for panic attacks and anxiety while in hospital and leading up to surgery Pain management consult with Dr. Becerra ordered as patient sees pain management outside hospital for chronic back pain and back pain post surgery in past Podiatry will continue to follow while in house
[2018-03-23] MEDS: Insulin Lispro (humaLOG) 100 Units/ml Inj SC SCH ×6 (09:12→16:50)
[2018-03-23] MEDS: POLYETHYLENE GLYCOL 3350 17 GM/Dose PACKET PO SCH (09:15)
[2018-03-23] MEDS: Metoprolol Succinate 100 mg XL Tab PO SCH ×2 (09:17→22:16)
[2018-03-23] MEDS: Morphine 30 mg SR Tab PO SCH ×2 (09:22→21:14)
--- NOTE | 2018-03-23 09:22 | CP.PCM.PN ---
Subjective - Date & Time of Evaluation Date of Evaluation: 03/23/18 Time of Evaluation: 09:23 - Subjective Subjective: STILL HAVING L LEG/FOOT PAINS DEPRESSED BECAUSE OF MULTIPLE MEDICAL AND HOME-RELATED PROBLEMS Objective - Vital Signs/Intake and Output Vital Signs (last 24 hours): Temp Pulse Resp BP Pulse Ox 98.1 F 75 20 173/79 H 95 03/23/18 09:00 03/23/18 09:00 03/23/18 09:00 03/23/18 09:00 03/23/18 09:00 - Medications Medications: Current Medications Acetaminophen (Tylenol 325mg Tab) 650 mg PO Q6 PRN PRN Reason: Fever 100 or greater Last Admin: 03/17/18 17:43 Dose: 650 mg Amlodipine Besylate (Norvasc) 10 mg PO DAILY [facility] Last Admin: 03/22/18 09:30 Dose: 10 mg Aspirin (Ecotrin) 81 mg PO DAILY [facility] Last Admin: 03/20/18 08:39 Dose: 81 mg Atorvastatin Calcium (Lipitor) 40 mg PO HS [facility] Last Admin: 03/22/18 21:37 Dose: 40 mg Clonidine HCl (Catapres) 0.2 mg PO Q12 [facility] Last Admin: 03/22/18 21:36 Dose: 0.2 mg Clopidogrel Bisulfate (Plavix) 75 mg PO DAILY [facility] Last Admin: 03/20/18 08:41 Dose: 75 mg Cyanocobalamin (Vitamin B12 1000 Mcg Tab) 1,000 mcg PO DAILY [facility] Last Admin: 03/22/18 09:00 Dose: 1,000 mcg Dextrose (Dextrose 50% Inj) 0 ml IV STAT PRN; Protocol PRN Reason: Hypoglycemia Protocol Dextrose (Glutose 15) 0 gm PO ONCE PRN; Protocol PRN Reason: Hypoglycemia Protocol Glucagon (Glucagen Diagnostic Kit) 0 mg IM STAT PRN; Protocol PRN Reason: Hypoglycemia Protocol Hydromorphone HCl (Dilaudid) 1 mg IVP Q4 PRN PRN Reason: Pain, moderate (4-7) Last Admin: 03/22/18 23:36 Dose: 1 mg Piperacillin Sod/Tazobactam (Sod 2.25 gm/ Sodium Chloride) 100 mls @ 100 mls/ hr IVPB Q6 [facility] PRN Reason: Protocol Last Admin: 03/23/18 03:10 Dose: 100 mls/hr Daptomycin 350 mg/ Sodium (Chloride) 100 mls @ 100 mls/hr IV Q48H [facility] PRN Reason: Protocol Stop: 03/23/18 12:16 Last Admin: 03/22/18 10:37 Dose: 100 mls/hr Insulin Detemir (Levemir) 80 units SC HS [facility] Last Admin: 03/22/18 21:38 Dose: 281 u Insulin Human Lispro (Humalog) 0 units SC ACHS [facility] Last Admin: 03/22/18 21:39 Dose: Not Given Insulin Human Lispro (Humalog) 34 units SC AC [facility] Last Admin: 03/22/18 16:39 Dose: 34 units Isosorbide Mononitrate (Imdur) 60 mg PO DAILY [facility] Last Admin: 03/22/18 09:32 Dose: 60 mg Metoprolol Succinate (Toprol Xl) 200 mg PO Q12 [facility] Last Admin: 03/22/18 21:36 Dose: 200 mg Morphine Sulfate (Morphine Extended Release Tab) 30 mg PO Q12 [facility] Last Admin: 03/22/18 21:35 Dose: 30 mg Oxycodone HCl (Oxycodone Immediate Release Tab) 30 mg PO Q6H PRN PRN Reason: Pain, severe (8-10) Last Admin: 03/23/18 03:09 Dose: 30 mg Polyethylene Glycol (Miralax) 17 gm PO DAILY [facility] - Labs Labs: 03/22/18 06:00 03/22/18 07:00 PT 12.3 Seconds (9.8-13.1) 03/17/18 00:08 INR 1.1 03/17/18 00:08 APTT 31.5 Seconds (25.6-37.1) 03/17/18 00:08 - Constitutional Appears: In Acute Distress, Chronically Ill - Head Exam Head Exam: ATRAUMATIC, NORMAL INSPECTION, NORMOCEPHALIC - Eye Exam Eye Exam: EOMI, Normal appearance, PERRL Pupil Exam: NORMAL ACCOMODATION, PERRL - ENT Exam ENT Exam: Mucous Membranes Moist, Normal Exam - Neck Exam Neck Exam: Full ROM, Normal Inspection. absent: Lymphadenopathy - Respiratory Exam Respiratory Exam: Clear to Ausculation Bilateral, NORMAL BREATHING PATTERN - Cardiovascular Exam Cardiovascular Exam: REGULAR RHYTHM, +S1, +S2. absent: Murmur - GI/Abdominal Exam GI & Abdominal Exam: Soft, Normal Bowel Sounds. absent: Tenderness - Rectal Exam Rectal Exam: NORMAL INSPECTION - Extremities Exam Extremities Exam: Full ROM, Normal Capillary Refill, Normal Inspection, Tenderness. absent: Joint Swelling, Pedal Edema - Back Exam Back Exam: NORMAL INSPECTION - Neurological Exam Neurological Exam: Alert, Awake, CN II-XII Intact, Oriented x3 - Psychiatric Exam Psychiatric exam: Normal Affect, Normal Mood - Skin Skin Exam: Dry, Warm Assessment and Plan - Assessment and Plan (Free Text) Assessment: CELLULITIS WITH OSTEOMYELITIS OF L LEG/FOOT DM TYPE 2-UNCONTROLLED SEVERE PVD HTN ASHD DEPRESSION Plan: CONTINUE IV ANTIBIOTICS PSYCH EVAL PODIATRY SURGERY RESCHEDULED FOR 03/28
--- NOTE | 2018-03-23 13:10 | CP.PCM.PN ---
Subjective - Date & Time of Evaluation Date of Evaluation: 03/23/18 Time of Evaluation: 12:20 - Subjective Subjective: ID Note- Pt. seen and examined today. she denies any fever or chills. states she is supposed to have charcot foot surgery next week by podiatry. denies any diarrhea. Objective - Vital Signs/Intake and Output Vital Signs (last 24 hours): Temp Pulse Resp BP Pulse Ox 98.1 F 75 20 173/79 H 95 03/23/18 09:00 03/23/18 09:19 03/23/18 09:00 03/23/18 09:19 03/23/18 09:00 - Medications Medications: Current Medications Acetaminophen (Tylenol 325mg Tab) 650 mg PO Q6 PRN PRN Reason: Fever 100 or greater Last Admin: 03/17/18 17:43 Dose: 650 mg Amlodipine Besylate (Norvasc) 10 mg PO DAILY [facility] Last Admin: 03/23/18 09:19 Dose: 10 mg Aspirin (Ecotrin) 81 mg PO DAILY [facility] Last Admin: 03/23/18 09:18 Dose: 81 mg Atorvastatin Calcium (Lipitor) 40 mg PO HS [facility] Last Admin: 03/22/18 21:37 Dose: 40 mg Buspirone HCl (Buspar) 5 mg PO BID [facility] Clonidine HCl (Catapres) 0.2 mg PO Q12 [facility] Last Admin: 03/23/18 09:16 Dose: 0.2 mg Clopidogrel Bisulfate (Plavix) 75 mg PO DAILY [facility] Last Admin: 03/23/18 09:18 Dose: 75 mg Cyanocobalamin (Vitamin B12 1000 Mcg Tab) 1,000 mcg PO DAILY [facility] Last Admin: 03/23/18 09:17 Dose: 1,000 mcg Dextrose (Dextrose 50% Inj) 0 ml IV STAT PRN; Protocol PRN Reason: Hypoglycemia Protocol Dextrose (Glutose 15) 0 gm PO ONCE PRN; Protocol PRN Reason: Hypoglycemia Protocol Glucagon (Glucagen Diagnostic Kit) 0 mg IM STAT PRN; Protocol PRN Reason: Hypoglycemia Protocol Hydromorphone HCl (Dilaudid) 1 mg IVP Q4 PRN PRN Reason: Pain, moderate (4-7) Last Admin: 03/23/18 10:35 Dose: 1 mg Piperacillin Sod/Tazobactam (Sod 2.25 gm/ Sodium Chloride) 100 mls @ 100 mls/ hr IVPB Q6 [facility] PRN Reason: Protocol Last Admin: 03/23/18 09:18 Dose: 100 mls/hr Insulin Detemir (Levemir) 80 units SC HS [facility] Last Admin: 03/22/18 21:38 Dose: 281 u Insulin Human Lispro (Humalog) 0 units SC ACHS [facility] Last Admin: 03/23/18 12:48 Dose: Not Given Insulin Human Lispro (Humalog) 34 units SC AC [facility] Last Admin: 03/23/18 12:47 Dose: 34 units Isosorbide Mononitrate (Imdur) 60 mg PO DAILY [facility] Last Admin: 03/23/18 09:20 Dose: 60 mg Metoprolol Succinate (Toprol Xl) 200 mg PO Q12 [facility] Last Admin: 03/23/18 09:17 Dose: 200 mg Morphine Sulfate (Morphine Extended Release Tab) 30 mg PO Q12 [facility] Last Admin: 03/23/18 09:22 Dose: 30 mg Oxycodone HCl (Oxycodone Immediate Release Tab) 30 mg PO Q6H PRN PRN Reason: Pain, severe (8-10) Last Admin: 03/23/18 03:09 Dose: 30 mg Polyethylene Glycol (Miralax) 17 gm PO DAILY [facility] Last Admin: 03/23/18 09:15 Dose: 17 gm - Labs Labs: - Additional Findings Additional findings: - Constitutional Appears: No Acute Distress - Head Exam Head Exam: ATRAUMATIC - Eye Exam Eye Exam: EOMI - ENT Exam ENT Exam: Normal Oropharynx - Neck Exam Neck exam: Positive for: Full Rom - Respiratory Exam Respiratory Exam: Clear to Auscultation Bilateral, NORMAL BREATHING PATTERN - Cardiovascular Exam Cardiovascular Exam: RRR, +S1, +S2 - GI/Abdominal Exam GI & Abdominal Exam: Normal Bowel Sounds, Soft Additional comments: NT, ND - Extremities Exam Additional comments: left foot /leg in soft cast as per podiatry , dressing clean right foot TMA right foot plantar dry 1 x 1 cm but open more superficial wound , no discharge - Neurological Exam Neurological exam: Alert, Oriented x 3 Laboratory Results - last 72 hr 03/20/18 03/20/18 03/21/18 15:37 20:58 05:52 WBC RBC Hgb Hct MCV MCH MCHC RDW Plt Count MPV Neut % (Auto) Lymph % (Auto) Mason % (Auto) Eos % (Auto) Baso % (Auto) Neut # (Auto) Lymph # (Auto) Mason # (Auto) Eos # (Auto) Baso # (Auto) Sodium Potassium Chloride Carbon Dioxide Anion Gap BUN Creatinine Est GFR ( Amer) Est GFR (Non-Af Amer) POC Glucose (mg/dL) 226 H 236 H 231 H Random Glucose Calcium Total Bilirubin AST ALT Alkaline Phosphatase Total Protein Albumin Globulin Albumin/Globulin Ratio 03/21/18 03/21/18 03/21/18 10:59 16:03 21:02 WBC RBC Hgb Hct MCV MCH MCHC RDW Plt Count MPV Neut % (Auto) Lymph % (Auto) Mason % (Auto) Eos % (Auto) Baso % (Auto) Neut # (Auto) Lymph # (Auto) Mason # (Auto) Eos # (Auto) Baso # (Auto) Sodium Potassium Chloride Carbon Dioxide Anion Gap BUN Creatinine Est GFR ( Amer) Est GFR (Non-Af Amer) POC Glucose (mg/dL) 414 H* 266 H 251 H Random Glucose Calcium Total Bilirubin AST ALT Alkaline Phosphatase Total Protein Albumin Globulin Albumin/Globulin Ratio 03/22/18 03/22/18 03/22/18 05:44 06:00 07:00 WBC 7.0 RBC 3.20 L Hgb 8.5 L Hct 26.3 L MCV 82.2 MCH 26.5 L MCHC 32.2 L RDW 16.6 H Plt Count 293 MPV 7.8 Neut % (Auto) 67.0 Lymph % (Auto) 22.9 Mason % (Auto) 7.4 Eos % (Auto) 1.9 Baso % (Auto) 0.8 Neut # (Auto) 4.7 Lymph # (Auto) 1.6 Mason # (Auto) 0.5 Eos # (Auto) 0.1 Baso # (Auto) 0.1 Sodium 139 Potassium 5.0 Chloride 102 Carbon Dioxide 33 H Anion Gap 9 L BUN 36 H Creatinine 1.3 H Est GFR ( Amer) 52 Est GFR (Non-Af Amer) 43 POC Glucose (mg/dL) 291 H Random Glucose 298 H Calcium 9.2 Total Bilirubin 0.4 AST 20 ALT 18 Alkaline Phosphatase 134 H Total Protein 6.8 Albumin 3.4 L Globulin 3.4 Albumin/Globulin Ratio 1.0 03/22/18 03/22/1803/22/18 11:00 15:41 21:22 WBC RBC Hgb Hct MCV MCH MCHC RDW Plt Count MPV Neut % (Auto) Lymph % (Auto) Mason % (Auto) Eos % (Auto) Baso % (Auto) Neut # (Auto) Lymph # (Auto) Mason # (Auto) Eos # (Auto) Baso # (Auto) Sodium Potassium Chloride Carbon Dioxide Anion Gap BUN Creatinine Est GFR ( Amer) Est GFR (Non-Af Amer) POC Glucose (mg/dL) 363 H 348 H 287 H Random Glucose Calcium Total Bilirubin AST ALT Alkaline Phosphatase Total Protein Albumin Globulin Albumin/Globulin Ratio 03/23/18 03/23/18 06:21 11:32 WBC RBC Hgb Hct MCV MCH MCHC RDW Plt Count MPV Neut % (Auto) Lymph % (Auto) Mason % (Auto) Eos % (Auto) Baso % (Auto) Neut # (Auto) Lymph # (Auto) Mason # (Auto) Eos # (Auto) Baso # (Auto) Sodium Potassium Chloride Carbon Dioxide Anion Gap BUN Creatinine Est GFR ( Amer) Est GFR (Non-Af Amer) POC Glucose (mg/dL) 253 H 200 H Random Glucose Calcium Total Bilirubin AST ALT Alkaline Phosphatase Total Protein Albumin Globulin Albumin/Globulin Ratio Microbiology 03/16/18 00:25 Blood Blood Culture - Final NO GROWTH AFTER 5 DAYS 03/16/18 00:25 Blood Gram Stain - Final TEST NOT PERFORMED 03/17/18 00:05 Blood Blood Culture - Final NO GROWTH AFTER 5 DAYS 03/17/18 00:05 Blood Gram Stain - Final TEST NOT PERFORMED 03/17/18 00:08 Foot - Left Gram Stain - Final 03/17/18 00:08 Foot - Left Wound Culture - Final Corynebacterium Species 03/17/18 05:30 Urine Urine Culture - Final No Growth (<1,000 CFU/ML) Assessment and Plan (1) Cellulitis of left foot Status: Acute (2) Charcot foot due to diabetes mellitus Status: Acute (3) Diabetic foot ulcer Status: Acute - Assessment and Plan (Free Text) Assessment: A/P- 52 year old female with CAD, HTN, DM II admitted with left plantar foot open wound and surrounding erythema . afebrile minimal leukocytosis has resolved. acute renal insufficinecy has improved . blood cx- neg x 2 foot wound cx- corynebacterium CT report- Om as per report High ESR plan- advise to continue with renal dose zosyn. day #7 continue with dqaptomycin for cellulitis /om of left plantar foot can increase the dose to daily now that renal function has improved.( 3 doses so far). check CPK while on dapto. all above d/w patient and her questions were answered and she agrees with above plan of care.
[2018-03-23] MEDS ORDERED: DAPTOmycin 500 mg Inj (Cubicin) IV SCH (13:30)
[2018-03-23 14:14] VITALS: BMI 32.6
--- NOTE | 2018-03-23 19:30 | PN ---
Copied To: Yesika Vogel MD Attending MD: Yesika Vogel MD DATE: 03/23/2018 ENDO FOLLOWUP NOTE LOCATION: In room 656. SUBJECTIVE: This is a 52-year-old female with recent uncontrolled type 2 insulin-requiring diabetes, presenting here with lower extremity cellulitis and underlying neuropathic ulceration and is now also being followed closely for metabolic management. She is scheduled for a surgical procedure tomorrow in the left lower extremity as noted. Her glycemic levels are fluctuating, but improved and the glucose values overnight have ranged from 200 to 253 mg/dL. LABORATORY DATA: Her latest chemistry showed a BUN of 36, sodium 139, potassium 5, chloride 102, CO2 of 33, glucose 298, and creatinine 1.3. ASSESSMENT AND PLAN: So at this time we will modify once again her basal and bolus insulin regimen and increase the Levemir to 80 units subcutaneously at bedtime daily to start tonight. We will continue the Humalog given as a modified dose of 34 units subcutaneously t.i.d. before meals to start today. We will also continue the low-dose correction scale using Humalog insulin as given. We will follow and advise accordingly. Yesika Vogel MD
[2018-03-23] MEDS: Insulin Detemir 100 Units/ml Inj SC SCH (22:00)
[2018-03-24] MEDS: Insulin Lispro (humaLOG) 100 Units/ml Inj SC SCH ×8 (00:55→21:31)
[2018-03-24 06:38] LABS: BASO # 0.1 K/uL (0.0-0.2); BASO % 0.7 % (0.0-2.0); EOS # 0.2 K/uL (0.0-0.7); EOS % 1.9 % (0.0-4.0); HEMOGLOBIN 8.6 g/dL (12.0-16.0); LYMPH # 1.8 K/uL (1.0-4.3); LYMPH % 21.6 % (20.0-40.0); MEAN CELL VOLUME 81.4 fl (81.0-99.0); MEAN CORPUSCULAR HEMOGLOBIN 26.8 pg (27.0-31.0); MEAN CORPUSCULAR HGB CONC 32.9 g/dL (33.0-37.0); MEAN PLATELET VOLUME 7.7 fl (7.2-11.7); MONO # 0.5 K/uL (0.0-0.8); MONO % 5.7 % (0.0-10.0); NEUT # 5.8 K/uL (1.8-7.0); NEUT % 70.1 % (50.0-75.0); NRBC % 0.1 % (0.0-0.0); RBC 3.2 Mil/uL (3.80-5.20); RED CELL DISTRIBUTION WIDTH 16.7 % (11.5-14.5); WHITE BLOOD COUNT 8.3 K/uL (4.8-10.8)
[2018-03-24 07:14] LABS: ALBUMIN 3.4 g/dL (3.5-5.0); CALCIUM 9.7 mg/dL (8.4-10.2)
--- NOTE | 2018-03-24 08:46 | CP.PCM.PN ---
Subjective - Date & Time of Evaluation Date of Evaluation: 03/24/18 Time of Evaluation: 08:44 - Subjective Subjective: Podiatry progress note for Dr. Macdonald: 51 yo female seen and evaluated for LLE pain, redness, swelling and right ulceration. Patients dressings and left foot posterior splint intact. Patient AAOx3 and NAD. Patient is resting in bed comfortably. States she is having some normal back pain today. Denies any acute events overnight. Denies N/V/F/SOB/CP. Objective - Vital Signs/Intake and Output Vital Signs (last 24 hours): Temp Pulse Resp BP Pulse Ox 98 F 69 20 176/70 H 94 L 03/24/18 08:13 03/24/18 08:13 03/24/18 08:13 03/24/18 08:13 03/24/18 08:13 - Medications Medications: Current Medications Acetaminophen (Tylenol 325mg Tab) 650 mg PO Q6 PRN PRN Reason: Fever 100 or greater Last Admin: 03/17/18 17:43 Dose: 650 mg Amlodipine Besylate (Norvasc) 10 mg PO DAILY [facility] Last Admin: 03/23/18 09:19 Dose: 10 mg Aspirin (Ecotrin) 81 mg PO DAILY [facility] Last Admin: 03/23/18 09:18 Dose: 81 mg Atorvastatin Calcium (Lipitor) 40 mg PO HS [facility] Last Admin: 03/23/18 21:21 Dose: 40 mg Buspirone HCl (Buspar) 5 mg PO BID [facility] Last Admin: 03/23/18 16:49 Dose: 5 mg Clonidine HCl (Catapres) 0.2 mg PO Q12 [facility] Last Admin: 03/23/18 21:21 Dose: 0.2 mg Clopidogrel Bisulfate (Plavix) 75 mg PO DAILY [facility] Last Admin: 03/23/18 09:18 Dose: 75 mg Cyanocobalamin (Vitamin B12 1000 Mcg Tab) 1,000 mcg PO DAILY [facility] Last Admin: 03/23/18 09:17 Dose: 1,000 mcg Dextrose (Dextrose 50% Inj) 0 ml IV STAT PRN; Protocol PRN Reason: Hypoglycemia Protocol Dextrose (Glutose 15) 0 gm PO ONCE PRN; Protocol PRN Reason: Hypoglycemia Protocol Glucagon (Glucagen Diagnostic Kit) 0 mg IM STAT PRN; Protocol PRN Reason: Hypoglycemia Protocol Hydromorphone HCl (Dilaudid) 1 mg IVP Q4 PRN PRN Reason: Pain, moderate (4-7) Last Admin: 03/24/18 04:43 Dose: 1 mg Piperacillin Sod/Tazobactam (Sod 2.25 gm/ Sodium Chloride) 100 mls @ 100 mls/ hr IVPB Q6 [facility] PRN Reason: Protocol Last Admin: 03/24/18 04:46 Dose: 100 mls/hr Daptomycin 390 mg/ Sodium (Chloride) 100 mls @ 100 mls/hr IV DAILY [facility] Stop: 03/29/18 09:01 Insulin Detemir (Levemir) 80 units SC HS [facility] Last Admin: 03/23/18 22:00 Dose: 80 u Insulin Human Lispro (Humalog) 0 units SC ACHS [facility] Last Admin: 03/24/18 07:07 Dose: Not Given Insulin Human Lispro (Humalog) 34 units SC AC [facility] Last Admin: 03/23/18 16:50 Dose: 34 units Isosorbide Mononitrate (Imdur) 60 mg PO DAILY [facility] Last Admin: 03/23/18 09:20 Dose: 60 mg Metoprolol Succinate (Toprol Xl) 200 mg PO Q12 [facility] Last Admin: 03/23/18 22:16 Dose: 200 mg Morphine Sulfate (Morphine Extended Release Tab) 30 mg PO Q12 [facility] Last Admin: 03/23/18 21:14 Dose: 30 mg Oxycodone HCl (Oxycodone Immediate Release Tab) 30 mg PO Q6H PRN PRN Reason: Pain, severe (8-10) Last Admin: 03/23/18 03:09 Dose: 30 mg Polyethylene Glycol (Miralax) 17 gm PO DAILY [facility] Last Admin: 03/23/18 09:15 Dose: 17 gm - Labs Labs: 03/24/18 05:45 03/24/18 05:45 PT 12.3 Seconds (9.8-13.1) 03/17/18 00:08 INR 1.1 03/17/18 00:08 APTT 31.5 Seconds (25.6-37.1) 03/17/18 00:08 - Constitutional Appears: Well, Non-toxic, No Acute Distress - Head Exam Head Exam: ATRAUMATIC, NORMOCEPHALIC - Extremities Exam Additional comments: Vasc: DP/PT pulses palpable 1/4 on the right. Temperature gradient warm to warm on the right. Cap refill time <3 sec to all digits Ortho: No tenderness upon palpation of right lower extremity. Neuro: Protective sensation absent bilaterally, gross sensation diminished Derm: Right: Hyperpigmented, thickened skin right. Ulceration measuring 0.5cm x 0.6cm x 0.2cm noted to plantar midfoot on the right. Wound margins are hyperkeratotic, base is granular 100%. No malodor, No drainage. no tracking, undermining or probing to bone, no purulence, no fluctuance or abscess noted. Left: Left plantar midfoot ulceration not visible as splint left on, sx junito - Neurological Exam Neurological Exam: Alert, Awake, Oriented x3 - Psychiatric Exam Psychiatric exam: Normal Affect, Normal Mood Assessment and Plan - Assessment and Plan (Free Text) Assessment: 52 yo female, seen and evaluated, for left Charcot arthropathy and right superficial ulceration Plan: Patient seen and evaluated at bedside Discussed in detail with Dr. Macdonald Labs, vitals and charts reviewed; Afebrile, absent leukocytosis X-rays of the B/L foot reviewed (03/16): Abnormal osseous morphology consisted with Charcot arthropathy on the left side; TMA on the right side Patient to remain strict NWB to LLE Infectious disease consulted; recs appreciated Wound culture taken (03/17); Cornybacterium CT of LLE (03/17); Severe Charcot Arthropathy Posterior splint left intact to left foot DSD applied to right plantar ulceration LE US; monophasic flow through both legs; stenosis left common femoral artery and superficial fem; atheroscelrotic stiffening in right posterior tibial artery Patient demonstrates verbal understanding and is aware there is a plan for surgery Medical clearance and Cardiology clearance appreciated, recommended to proceed with surgical planning of charcot reconstruction; surgery booked for [id number]. Psych consult appreciated Pain management consult with Dr. Becerra ordered as patient sees pain management outside hospital for chronic back pain and back pain post surgery in past Podiatry will continue to follow while in house
[2018-03-24] MEDS: POLYETHYLENE GLYCOL 3350 17 GM/Dose PACKET PO SCH (08:52)
[2018-03-24] MEDS: Metoprolol Succinate 100 mg XL Tab PO SCH ×2 (08:53→21:34)
--- NOTE | 2018-03-24 08:53 | CP.PCM.PN ---
Subjective - Date & Time of Evaluation Date of Evaluation: 03/24/18 Time of Evaluation: 08:54 - Subjective Subjective: NO NEW CLINICAL FINDINGS [facility]G PAIN PERSISTS Objective - Vital Signs/Intake and Output Vital Signs (last 24 hours): Temp Pulse Resp BP Pulse Ox 98 F 69 20 176/70 H 94 L 03/24/18 08:13 03/24/18 08:13 03/24/18 08:13 03/24/18 08:13 03/24/18 08:13 - Medications Medications: Current Medications Acetaminophen (Tylenol 325mg Tab) 650 mg PO Q6 PRN PRN Reason: Fever 100 or greater Last Admin: 03/17/18 17:43 Dose: 650 mg Amlodipine Besylate (Norvasc) 10 mg PO DAILY [facility] Last Admin: 03/23/18 09:19 Dose: 10 mg Aspirin (Ecotrin) 81 mg PO DAILY [facility] Last Admin: 03/23/18 09:18 Dose: 81 mg Atorvastatin Calcium (Lipitor) 40 mg PO HS [facility] Last Admin: 03/23/18 21:21 Dose: 40 mg Buspirone HCl (Buspar) 5 mg PO BID [facility] Last Admin: 03/23/18 16:49 Dose: 5 mg Clonidine HCl (Catapres) 0.2 mg PO Q12 [facility] Last Admin: 03/23/18 21:21 Dose: 0.2 mg Clopidogrel Bisulfate (Plavix) 75 mg PO DAILY [facility] Last Admin: 03/23/18 09:18 Dose: 75 mg Cyanocobalamin (Vitamin B12 1000 Mcg Tab) 1,000 mcg PO DAILY [facility] Last Admin: 03/23/18 09:17 Dose: 1,000 mcg Dextrose (Dextrose 50% Inj) 0 ml IV STAT PRN; Protocol PRN Reason: Hypoglycemia Protocol Dextrose (Glutose 15) 0 gm PO ONCE PRN; Protocol PRN Reason: Hypoglycemia Protocol Glucagon (Glucagen Diagnostic Kit) 0 mg IM STAT PRN; Protocol PRN Reason: Hypoglycemia Protocol Hydromorphone HCl (Dilaudid) 1 mg IVP Q4 PRN PRN Reason: Pain, moderate (4-7) Last Admin: 03/24/18 04:43 Dose: 1 mg Piperacillin Sod/Tazobactam (Sod 2.25 gm/ Sodium Chloride) 100 mls @ 100 mls/ hr IVPB Q6 [facility] PRN Reason: Protocol Last Admin: 03/24/18 04:46 Dose: 100 mls/hr Daptomycin 390 mg/ Sodium (Chloride) 100 mls @ 100 mls/hr IV DAILY [facility] Stop: 03/29/18 09:01 Insulin Detemir (Levemir) 80 units SC HS [facility] Last Admin: 03/23/18 22:00 Dose: 80 u Insulin Human Lispro (Humalog) 0 units SC ACHS [facility] Last Admin: 03/24/18 07:07 Dose: Not Given Insulin Human Lispro (Humalog) 34 units SC AC [facility] Last Admin: 03/23/18 16:50 Dose: 34 units Isosorbide Mononitrate (Imdur) 60 mg PO DAILY [facility] Last Admin: 03/23/18 09:20 Dose: 60 mg Metoprolol Succinate (Toprol Xl) 200 mg PO Q12 [facility] Last Admin: 03/23/18 22:16 Dose: 200 mg Morphine Sulfate (Morphine Extended Release Tab) 30 mg PO Q12 [facility] Last Admin: 03/23/18 21:14 Dose: 30 mg Oxycodone HCl (Oxycodone Immediate Release Tab) 30 mg PO Q6H PRN PRN Reason: Pain, severe (8-10) Last Admin: 03/23/18 03:09 Dose: 30 mg Polyethylene Glycol (Miralax) 17 gm PO DAILY [facility] Last Admin: 03/23/18 09:15 Dose: 17 gm - Labs Labs: 03/24/18 05:45 03/24/18 05:45 PT 12.3 Seconds (9.8-13.1) 03/17/18 00:08 INR 1.1 03/17/18 00:08 APTT 31.5 Seconds (25.6-37.1) 03/17/18 00:08 - Constitutional Appears: Chronically Ill - Head Exam Head Exam: ATRAUMATIC, NORMAL INSPECTION, NORMOCEPHALIC - Eye Exam Eye Exam: EOMI, Normal appearance, PERRL Pupil Exam: NORMAL ACCOMODATION, PERRL - ENT Exam ENT Exam: Mucous Membranes Moist, Normal Exam - Neck Exam Neck Exam: Full ROM, Normal Inspection. absent: Lymphadenopathy - Respiratory Exam Respiratory Exam: Clear to Ausculation Bilateral, NORMAL BREATHING PATTERN - Cardiovascular Exam Cardiovascular Exam: REGULAR RHYTHM, +S1, +S2. absent: Murmur - GI/Abdominal Exam GI & Abdominal Exam: Soft, Normal Bowel Sounds. absent: Tenderness - Rectal Exam Rectal Exam: NORMAL INSPECTION - Extremities Exam Extremities Exam: Tenderness. absent: Joint Swelling, Pedal Edema - Back Exam Back Exam: NORMAL INSPECTION - Neurological Exam Neurological Exam: Alert, Awake, CN II-XII Intact, Normal Gait, Oriented x3 - Psychiatric Exam Psychiatric exam: Normal Affect, Normal Mood - Skin Skin Exam: Dry, Intact, Normal Color, Warm Assessment and Plan - Assessment and Plan (Free Text) Assessment: CELLULITIS WITH OSTEOMYELITIS OF L LEG/FOOT DM HTN SEVERE PVD ANEMIA OF CHRONIC DZ DEPRESSION Plan: CONTINUE PRESENT RX FOR PODIATRY SURGERY ON 03/28/18 WILL DISCUS NEED FOR TRANSFUSION OF PRBCS WITH SURGEON [facility] AND [facility]
[2018-03-24] MEDS: Morphine 30 mg SR Tab PO SCH ×2 (09:04→20:17)
[2018-03-24] MEDS: oxyCODONE 10 mg Immediate Release Tab PO PRN (18:33)
[2018-03-24] MEDS: Insulin Detemir 100 Units/ml Inj SC SCH (21:34)
--- NOTE | 2018-03-25 02:21 | PN ---
DATE: 03/24/2018 ENDOCRINOLOGY FOLLOWUP NOTE LOCATION: Room 656. SUBJECTIVE: This is a 52-year-old female with recent uncontrolled type 2 insulin-requiring diabetes, now being followed closely for metabolic management. She has also ongoing IV antibiotic management with local debridement of lower extremity cellulitis with underlying neuropathic plantar ulcerations as noted. Her glycemic levels are fluctuating because also of the variability of her oral intake as noted. Her glucose levels today have ranged from 167 to 246 and 256 mg/dL. LABORATORY DATA: Her latest chemistry showed a BUN of 29, sodium 140, potassium 4.6, chloride 102, CO2 of 32, glucose 176 and creatinine 1.3. ASSESSMENT AND PLAN: So at this time, we will continue the same basal and bolus insulin regimen to allow for dose equilibration and keep her on the Humalog given as 34 units subcutaneously t.i.d. before meals as ordered. We will continue her Levemir given as basal insulin at 80 units subcutaneously at bedtime daily as given. We will titrate incrementally as indicated to optimize metabolic control. We will obtain serial chemistries and supplement accordingly as needed. We will follow. Yesika Vogel MD
--- NOTE | 2018-03-25 07:55 | CP.PCM.PN ---
Subjective - Date & Time of Evaluation Date of Evaluation: 03/25/18 Time of Evaluation: 07:52 - Subjective Subjective: Podiatry progress note for Dr. Macdonald: 51 yo female seen and evaluated for LLE pain, redness, swelling and right ulceration. Patients dressings and left foot posterior splint intact. Patient AAOx3 and NAD. Patient is resting in bed comfortably. States she is having some normal back pain today. Denies any acute events overnight. Denies N/V/F/SOB/CP. Objective - Vital Signs/Intake and Output Vital Signs (last 24 hours): Temp Pulse Resp BP Pulse Ox 98.3 F 74 19 149/74 96 03/25/18 01:00 03/25/18 01:00 03/25/18 01:00 03/25/18 01:00 03/25/18 01:00 - Medications Medications: Current Medications Acetaminophen (Tylenol 325mg Tab) 650 mg PO Q6 PRN PRN Reason: Fever 100 or greater Last Admin: 03/17/18 17:43 Dose: 650 mg Amlodipine Besylate (Norvasc) 10 mg PO DAILY [facility] Last Admin: 03/24/18 08:52 Dose: 10 mg Aspirin (Ecotrin) 81 mg PO DAILY [facility] Last Admin: 03/24/18 08:48 Dose: Not Given Atorvastatin Calcium (Lipitor) 40 mg PO HS [facility] Last Admin: 03/24/18 21:34 Dose: 40 mg Buspirone HCl (Buspar) 5 mg PO BID [facility] Last Admin: 03/24/18 17:12 Dose: Not Given Clonidine HCl (Catapres) 0.2 mg PO Q12 [facility] Last Admin: 03/24/18 20:17 Dose: 0.2 mg Clopidogrel Bisulfate (Plavix) 75 mg PO DAILY [facility] Last Admin: 03/24/18 08:48 Dose: Not Given Cyanocobalamin (Vitamin B12 1000 Mcg Tab) 1,000 mcg PO DAILY [facility] Last Admin: 03/24/18 08:53 Dose: 1,000 mcg Dextrose (Dextrose 50% Inj) 0 ml IV STAT PRN; Protocol PRN Reason: Hypoglycemia Protocol Dextrose (Glutose 15) 0 gm PO ONCE PRN; Protocol PRN Reason: Hypoglycemia Protocol Enoxaparin Sodium (Lovenox) 40 mg SC DAILY [facility] PRN Reason: Protocol Glucagon (Glucagen Diagnostic Kit) 0 mg IM STAT PRN; Protocol PRN Reason: Hypoglycemia Protocol Hydromorphone HCl (Dilaudid) 1 mg IVP Q4 PRN PRN Reason: Pain, moderate (4-7) Last Admin: 03/25/18 03:11 Dose: 1 mg Piperacillin Sod/Tazobactam (Sod 2.25 gm/ Sodium Chloride) 100 mls @ 100 mls/ hr IVPB Q6 [facility] PRN Reason: Protocol Last Admin: 03/25/18 03:11 Dose: 100 mls/hr Daptomycin 390 mg/ Sodium (Chloride) 100 mls @ 100 mls/hr IV DAILY [facility] Stop: 03/29/18 09:01 Last Admin: 03/24/18 10:04 Dose: 100 mls/hr Insulin Detemir (Levemir) 80 units SC HS [facility] Last Admin: 03/24/18 21:34 Dose: 80 u Insulin Human Lispro (Humalog) 0 units SC ACHS [facility] Last Admin: 03/24/18 21:31 Dose: Not Given Insulin Human Lispro (Humalog) 34 units SC AC [facility] Last Admin: 03/24/18 17:13 Dose: 34 units Isosorbide Mononitrate (Imdur) 60 mg PO DAILY [facility] Last Admin: 03/24/18 08:52 Dose: 60 mg Metoprolol Succinate (Toprol Xl) 200 mg PO Q12 [facility] Last Admin: 03/24/18 21:34 Dose: 200 mg Morphine Sulfate (Morphine Extended Release Tab) 30 mg PO Q12 [facility] Last Admin: 03/24/18 20:17 Dose: 30 mg Oxycodone HCl (Oxycodone Immediate Release Tab) 30 mg PO Q6H PRN PRN Reason: Pain, severe (8-10) Last Admin: 03/24/18 18:33 Dose: 30 mg Polyethylene Glycol (Miralax) 17 gm PO DAILY [facility] Last Admin: 03/24/18 08:52 Dose: 17 gm - Labs Labs: 03/24/18 05:45 03/24/18 05:45 PT 12.3 Seconds (9.8-13.1) 03/17/18 00:08 INR 1.1 03/17/18 00:08 APTT 31.5 Seconds (25.6-37.1) 03/17/18 00:08 - Constitutional Appears: Well, Non-toxic, No Acute Distress - Head Exam Head Exam: ATRAUMATIC, NORMOCEPHALIC - Extremities Exam Additional comments: Vasc: DP/PT pulses palpable 1/4 on the right. Temperature gradient warm to warm on the right. Cap refill time <3 sec to all digits Ortho: No tenderness upon palpation of right lower extremity. Neuro: Protective sensation absent bilaterally, gross sensation diminished Derm: Right: Hyperpigmented, thickened skin right. Ulceration measuring 0.5cm x 0.6cm x 0.2cm noted to plantar midfoot on the right. Wound margins are hyperkeratotic, base is granular 100%. No malodor, No drainage. no tracking, undermining or probing to bone, no purulence, no fluctuance or abscess noted. Left: Left plantar midfoot ulceration not visible as splint left on, sx wednesday - Neurological Exam Neurological Exam: Alert, Awake, Oriented x3 - Psychiatric Exam Psychiatric exam: Normal Affect, Normal Mood Assessment and Plan - Assessment and Plan (Free Text) Assessment: 52 yo female, seen and evaluated, for left Charcot arthropathy and right superficial ulceration Plan: Patient seen and evaluated at bedside Discussed in detail with Dr. Macdonald Labs, vitals and charts reviewed; Afebrile, absent leukocytosis X-rays of the B/L foot reviewed (03/16): Abnormal osseous morphology consisted with Charcot arthropathy on the left side; TMA on the right side Patient to remain strict NWB to LLE Infectious disease consulted; continue renal dose zosyn, continue daptomycin for cellulitis/om of left plantar foot and can increase since renal function improved Wound culture taken (03/17); Cornybacterium CT of LLE (03/17); Severe Charcot Arthropathy Posterior splint left intact to left foot DSD applied to right plantar ulceration LE US; monophasic flow through both legs; stenosis left common femoral artery and superficial fem; atheroscelrotic stiffening in right posterior tibial artery Patient demonstrates verbal understanding and is aware there is a plan for surgery Medical clearance and Cardiology clearance appreciated, recommended to proceed with surgical planning of charcot reconstruction; surgery booked for [id number] 28. Psych consult appreciated Pain management consult with Dr. Becerra ordered as patient sees pain management outside hospital for chronic back pain and back pain post surgery in past Podiatry will continue to follow while in house
[2018-03-25] MEDS: Insulin Lispro (humaLOG) 100 Units/ml Inj SC SCH ×6 (08:00→16:33)
[2018-03-25] MEDS ORDERED: Enoxaparin 40 mg Syringe SC SCH (09:00)
--- NOTE | 2018-03-25 09:43 | CP.PCM.PN ---
Subjective - Date & Time of Evaluation Date of Evaluation: 03/25/18 Time of Evaluation: 08:30 - Subjective Subjective: Patient is well known to me from previous admission. She's been admitted for left foot pain and is awaiting surgery. Per patient it'll likely be next week. As an outpatient, she sees Dr. Escobedo for pain management and has been on MS Contin 30mg q12h and Roxicodone 30mg q6h. She's not on Lyrica or Neurontin due to side effects. Since admission, she's been put on Dilaudid 1mg IV for breakthrough as well. She's satisfied with the above regimen. According to the staff her pain is well controlled. Objective - Vital Signs/Intake and Output Vital Signs (last 24 hours): Temp Pulse Resp BP Pulse Ox 98.1 F 71 19 175/73 H 96 03/25/18 07:53 03/25/18 07:53 03/25/18 07:53 03/25/18 07:53 03/25/18 07:53 - Medications Medications: Current Medications Acetaminophen (Tylenol 325mg Tab) 650 mg PO Q6 PRN PRN Reason: Fever 100 or greater Last Admin: 03/17/18 17:43 Dose: 650 mg Amlodipine Besylate (Norvasc) 10 mg PO DAILY [facility] Last Admin: 03/24/18 08:52 Dose: 10 mg Aspirin (Ecotrin) 81 mg PO DAILY [facility] Last Admin: 03/24/18 08:48 Dose: Not Given Atorvastatin Calcium (Lipitor) 40 mg PO HS [facility] Last Admin: 03/24/18 21:34 Dose: 40 mg Buspirone HCl (Buspar) 5 mg PO BID [facility] Last Admin: 03/24/18 17:12 Dose: Not Given Clonidine HCl (Catapres) 0.2 mg PO Q12 [facility] Last Admin: 03/24/18 20:17 Dose: 0.2 mg Clopidogrel Bisulfate (Plavix) 75 mg PO DAILY [facility] Last Admin: 03/24/18 08:48 Dose: Not Given Cyanocobalamin (Vitamin B12 1000 Mcg Tab) 1,000 mcg PO DAILY [facility] Last Admin: 03/24/18 08:53 Dose: 1,000 mcg Dextrose (Dextrose 50% Inj) 0 ml IV STAT PRN; Protocol PRN Reason: Hypoglycemia Protocol Dextrose (Glutose 15) 0 gm PO ONCE PRN; Protocol PRN Reason: Hypoglycemia Protocol Enoxaparin Sodium (Lovenox) 40 mg SC DAILY [facility] PRN Reason: Protocol Glucagon (Glucagen Diagnostic Kit) 0 mg IM STAT PRN; Protocol PRN Reason: Hypoglycemia Protocol Hydromorphone HCl (Dilaudid) 1 mg IVP Q4 PRN PRN Reason: Pain, moderate (4-7) Last Admin: 03/25/18 03:11 Dose: 1 mg Piperacillin Sod/Tazobactam (Sod 2.25 gm/ Sodium Chloride) 100 mls @ 100 mls/ hr IVPB Q6 [facility] PRN Reason: Protocol Last Admin: 03/25/18 03:11 Dose: 100 mls/hr Daptomycin 390 mg/ Sodium (Chloride) 100 mls @ 100 mls/hr IV DAILY [facility] Stop: 03/29/18 09:01 Last Admin: 03/24/18 10:04 Dose: 100 mls/hr Insulin Detemir (Levemir) 80 units SC HS [facility] Last Admin: 03/24/18 21:34 Dose: 80 u Insulin Human Lispro (Humalog) 0 units SC ACHS [facility] Last Admin: 03/24/18 21:31 Dose: Not Given Insulin Human Lispro (Humalog) 34 units SC AC [facility] Last Admin: 03/24/18 17:13 Dose: 34 units Isosorbide Mononitrate (Imdur) 60 mg PO DAILY [facility] Last Admin: 03/24/18 08:52 Dose: 60 mg Metoprolol Succinate (Toprol Xl) 200 mg PO Q12 [facility] Last Admin: 03/24/18 21:34 Dose: 200 mg Oxycodone HCl (Oxycodone Immediate Release Tab) 30 mg PO Q6H PRN PRN Reason: Pain, severe (8-10) Last Admin: 03/24/18 18:33 Dose: 30 mg Polyethylene Glycol (Miralax) 17 gm PO DAILY [facility] Last Admin: 03/24/18 08:52 Dose: 17 gm - Labs Labs: 03/24/18 05:45 03/24/18 05:45 PT 12.3 Seconds (9.8-13.1) 03/17/18 00:08 INR 1.1 03/17/18 00:08 APTT 31.5 Seconds (25.6-37.1) 03/17/18 00:08 - Extremities Exam Additional comments: S/P right TMA, left foot dressing intact. Assessment and Plan (1) Charcot foot due to diabetes mellitus Assessment & Plan: 52 yo woman w/ chronic pain, pain from Charcot foot and CLBP. - continue current regimen - patient will likely have GA + regional for surgery - will need to titrate pain regimen post-op Status: Acute
[2018-03-25] MEDS: Metoprolol Succinate 100 mg XL Tab PO SCH (09:58)
[2018-03-25] MEDS: POLYETHYLENE GLYCOL 3350 17 GM/Dose PACKET PO SCH (09:58)
[2018-03-25] MEDS: Morphine 30 mg SR Tab PO SCH (10:00)
[2018-03-25] MEDS: oxyCODONE 10 mg Immediate Release Tab PO PRN (10:24)
[2018-03-25] MEDS ORDERED: Lidocaine 1% 5ml Abboject IV ONE (12:48)
--- NOTE | 2018-03-25 12:54 | CP.PCM.PN ---
Subjective - Date & Time of Evaluation Date of Evaluation: 03/25/18 Time of Evaluation: 12:54 - Subjective Subjective: HAVING PICC LINE PLACED FOR APPROPRIATE IV ACCESS NO NEW CLINICAL FINDINGS WILL TRANSFUSE PRCS TO CORRECT ANEMIA PRIOR TO SURGERY FOR TRANSFER TO TCU TODAY Objective - Vital Signs/Intake and Output Vital Signs (last 24 hours): Temp Pulse Resp BP Pulse Ox 98.7 F 80 18 176/78 H 96 03/25/18 12:40 03/25/18 12:40 03/25/18 12:40 03/25/18 12:40 03/25/18 07:53 - Medications Medications: Current Medications Acetaminophen (Tylenol 325mg Tab) 650 mg PO Q6 PRN PRN Reason: Fever 100 or greater Last Admin: 03/17/18 17:43 Dose: 650 mg Amlodipine Besylate (Norvasc) 10 mg PO DAILY [facility] Last Admin: 03/25/18 09:58 Dose: 10 mg Aspirin (Ecotrin) 81 mg PO DAILY [facility] Last Admin: 03/24/18 08:48 Dose: Not Given Atorvastatin Calcium (Lipitor) 40 mg PO HS [facility] Last Admin: 03/24/18 21:34 Dose: 40 mg Buspirone HCl (Buspar) 5 mg PO BID [facility] Last Admin: 03/25/18 09:00 Dose: Not Given Clonidine HCl (Catapres) 0.2 mg PO Q12 [facility] Last Admin: 03/25/18 09:58 Dose: 0.2 mg Clopidogrel Bisulfate (Plavix) 75 mg PO DAILY [facility] Last Admin: 03/25/18 09:58 Dose: 75 mg Cyanocobalamin (Vitamin B12 1000 Mcg Tab) 1,000 mcg PO DAILY [facility] Last Admin: 03/25/18 09:58 Dose: 1,000 mcg Dextrose (Dextrose 50% Inj) 0 ml IV STAT PRN; Protocol PRN Reason: Hypoglycemia Protocol Dextrose (Glutose 15) 0 gm PO ONCE PRN; Protocol PRN Reason: Hypoglycemia Protocol Enoxaparin Sodium (Lovenox) 40 mg SC DAILY [facility] PRN Reason: Protocol Last Admin: 03/25/18 09:58 Dose: 40 mg Glucagon (Glucagen Diagnostic Kit) 0 mg IM STAT PRN; Protocol PRN Reason: Hypoglycemia Protocol Hydromorphone HCl (Dilaudid) 1 mg IVP Q4 PRN PRN Reason: Pain, moderate (4-7) Last Admin: 03/25/18 03:11 Dose: 1 mg Piperacillin Sod/Tazobactam (Sod 2.25 gm/ Sodium Chloride) 100 mls @ 100 mls/ hr IVPB Q6 [facility] PRN Reason: Protocol Last Admin: 03/25/18 10:16 Dose: 100 mls/hr Daptomycin 390 mg/ Sodium (Chloride) 100 mls @ 100 mls/hr IV DAILY [facility] Stop: 03/29/18 09:01 Last Admin: 03/25/18 09:58 Dose: 100 mls/hr Insulin Detemir (Levemir) 80 units SC HS [facility] Last Admin: 03/24/18 21:34 Dose: 80 u Insulin Human Lispro (Humalog) 0 units SC ACHS [facility] Last Admin: 03/25/18 11:34 Dose: 2 units Insulin Human Lispro (Humalog) 34 units SC AC [facility] Last Admin: 03/25/18 11:33 Dose: 34 units Isosorbide Mononitrate (Imdur) 60 mg PO DAILY [facility] Last Admin: 03/25/18 09:58 Dose: 60 mg Metoprolol Succinate (Toprol Xl) 200 mg PO Q12 [facility] Last Admin: 03/25/18 09:58 Dose: 200 mg Oxycodone HCl (Oxycodone Immediate Release Tab) 30 mg PO Q6H PRN PRN Reason: Pain, severe (8-10) Last Admin: 03/25/18 10:24 Dose: 30 mg Polyethylene Glycol (Miralax) 17 gm PO DAILY [facility] Last Admin: 03/25/18 09:58 Dose: 17 gm - Labs Labs: 03/24/18 05:45 03/24/18 05:45 PT 12.3 Seconds (9.8-13.1) 03/17/18 00:08 INR 1.1 03/17/18 00:08 APTT 31.5 Seconds (25.6-37.1) 03/17/18 00:08
--- NOTE | 2018-03-25 13:29 | PCM.SURG1 ---
Surgeon's Initial Post Op Note - Surgeon's Notes Surgeon: Gregory Matamoros MD Investigator Fraud: [id number] Type of Anesthesia: Local Pre-Operative Diagnosis: Poor venous access Operative Findings: US showed patent right basilic vein Post-Operative Diagnosis: Poor venous access Operation Performed: Single lumen picc placement right arm, 41 CM. Specimen/Specimens Removed: none Estimated Blood Loss: EBL {In ML}: 2 Blood Products Given: N/A Drains Used: No Drains Post-Op Condition: Fair Date of Surgery/Procedure: 03/25/18 Time of Surgery/Procedure: 13:25
[2018-03-25 18:51] VITALS: PULSE 78
--- NOTE | 2018-03-26 01:42 | PN ---
DATE: 03/25/2018 ENDO FOLLOWUP NOTE LOCATION: In room 656. SUBJECTIVE: This is a 52-year-old female with recent uncontrolled type 2 insulin-requiring diabetes, now being followed closely for metabolic management. She also is receiving ongoing IV antibiotics and local debridement for left foot cellulitis and underlying neuropathic plantar ulcerations as noted thereof. Her glycemic levels today are fluctuating, ranging from 201 to 230 and 314 mg/dL. LABORATORY DATA: Her latest chemistry showed a BUN of 29, sodium 140, potassium 4.6, chloride 102, CO2 of 32, glucose 176, and creatinine 1.3. ASSESSMENT: This is a 52-year-old female with uncontrolled and decompensated type 2 insulin-requiring diabetes with tremendous insulin resistance, presenting here with lower extremity weakness and also with concomitant neuropathic diabetic ulcerations with severe peripheral arterial vasculopathy as noted. PLAN OF MANAGEMENT: As discussed with the patient and staff, we will continue her same basal and bolus insulin regimen to allow for dose equilibration and keep her on the Humalog given as 34 units subcu t.i.d. before meals to start today. We will also continue her Levemir given as 80 units subcu at bedtime daily to start tonight. We will titrate incrementally as indicated to optimize metabolic control. We will obtain serial chemistries and supplement accordingly as needed. We will follow. Yesika Vogel MD
[2018-03-28 06:48] VITALS: RESP 20; O2SAT 95
[2018-03-28 06:57] VITALS: TEMP 98
[2018-03-28] MEDS ORDERED: Lactated Ringer's 1,000 ML IV ONE ×2 (07:00→08:30)
[2018-03-28 07:20] VITALS: BP 160/76
[2018-03-28] MEDS ORDERED: Gentamicin 80 mg/2mL Inj. IVPB ONE (09:43)
--- NOTE | 2018-03-28 10:25 | VASCULAR ---
PROCEDURE: Date of procedure: 03/25/2018 Procedure: 1. Placement of a right arm PICC with ultrasound and fluoroscopic guidance, CPT 18211 2. PICC tip confirmation with spot radiograph and is in the superior vena cava Medications: 1 percent lidocaine Total Fluoro time: 16 seconds Radiation: 2.95 MGy EBL: 2 cc HISTORY: Infection requiring long-term IV antibiotics TECHNIQUE: Following informed consent and procedure time-out, the patient was placed supine on the interventional table and the right arm prepped and draped in the usual sterile fashion. Ultrasound showed a patent and compressible right basilic vein. After the skin was anesthetized with lidocaine, the basilic vein was accessed with micro micropuncture technique using ultrasound guidance. A guidewire was then advanced under fluoroscopic guidance into the superior vena cava. An image documenting ultrasound guidance for vascular access was permanently saved. The length of the single-lumen 4 Sinhala PICC was trimmed to 40 centimeters and advanced through a peel-away sheath. The PICC was position with tip of PICC confirm a spot radiograph the superior vena cava. The PICC was secured to the patient's skin. The PICC was flushed. A biopatch and sterile dressing was applied. IMPRESSION: Placement of a single-lumen 4 Sinhala PICC trimmed to 40 centimeters via right basilic vein. The tip of the PICC is confirmed with spot radiograph and is in the superior vena cava.
--- NOTE | 2018-04-03 11:10 | CP.PCM.DIS ---
Provider - Provider Date of Admission: 03/17/18 01:03 Attending physician: Mario Malagon MD Time Spent in preparation of Discharge (in minutes): 30 Diagnosis - Discharge Diagnosis (1) Charcot's joint arthropathy in type 2 diabetes mellitus Status: Acute Priority: High (2) Diabetes mellitus with hyperglycemia Status: Chronic Priority: High (3) CAD (coronary artery disease) Status: Acute (4) Cellulitis Status: Acute (5) Cellulitis of left foot Status: Acute (6) Cellulitis of leg Status: Acute (7) Hyperglycemia Status: Acute (8) Anxiety Status: Chronic Priority: Medium (9) Dyslipidemia Status: Chronic Priority: High (10) Essential hypertension Status: Chronic (11) Osteomyelitis of right foot Status: Chronic Priority: High (12) Peripheral vascular disease Status: Chronic Priority: Medium (13) Osteomyelitis of ankle and foot Status: Suspected Hospital Course - Lab Results Lab Results: Micro Results 03/16/18 00:25 Blood Blood Culture - Final NO GROWTH AFTER 5 DAYS 03/16/18 00:25 Blood Gram Stain - Final TEST NOT PERFORMED 03/17/18 00:05 Blood Blood Culture - Final NO GROWTH AFTER 5 DAYS 03/17/18 00:05 Blood Gram Stain - Final TEST NOT PERFORMED 03/17/18 00:08 Foot - Left Gram Stain - Final 03/17/18 00:08 Foot - Left Wound Culture - Final Corynebacterium Species 03/17/18 05:30 Urine Urine Culture - Final No Growth (<1,000 CFU/ML) Most Recent Lab Values WBC 8.3 K/uL (4.8-10.8) 03/24/18 05:45 RBC 3.20 Mil/uL (3.80-5.20) L 03/24/18 05:45 Hgb 8.6 g/dL (12.0-16.0) L 03/24/18 05:45 Hct 26.1 % (34.0-47.0) L 03/24/18 05:45 MCV 81.4 fl (81.0-99.0) 03/24/18 05:45 MCH 26.8 pg (27.0-31.0) L 03/24/18 05:45 MCHC 32.9 g/dL (33.0-37.0) L 03/24/18 05:45 RDW 16.7 % (11.5-14.5) H 03/24/18 05:45 Plt Count 346 K/uL (130-400) 03/24/18 05:45 MPV 7.7 fl (7.2-11.7) 03/24/18 05:45 Neut % (Auto) 70.1 % (50.0-75.0) 03/24/18 05:45 Lymph % (Auto) 21.6 % (20.0-40.0) 03/24/18 05:45 [place] % (Auto) 5.7 % (0.0-10.0) 03/24/18 05:45 Eos % (Auto) 1.9 % (0.0-4.0) 03/24/18 05:45 Baso % (Auto) 0.7 % (0.0-2.0) 03/24/18 05:45 Neut # (Auto) 5.8 K/uL (1.8-7.0) 03/24/18 05:45 Lymph # (Auto) 1.8 K/uL (1.0-4.3) 03/24/18 05:45 [place] # (Auto) 0.5 K/uL (0.0-0.8) 03/24/18 05:45 Eos # (Auto) 0.2 K/uL (0.0-0.7) 03/24/18 05:45 Baso # (Auto) 0.1 K/uL (0.0-0.2) 03/24/18 05:45 Neutrophils % (Manual) 95 % (42-75) H 03/17/18 00:08 Lymphocytes % (Manual) 3 % (20-50) L 03/17/18 00:08 Monocytes % (Manual) 2 % (0-10) 03/17/18 00:08 Platelet Estimate Normal (NORMAL) 03/17/18 00:08 Polychromasia Slight 03/17/18 00:08 Anisocytosis (manual) Slight 03/17/18 00:08 ESR 113 mm/hr (0-30) H 03/17/18 15:00 PT 12.3 Seconds (9.8-13.1) 03/17/18 00:08 INR 1.1 03/17/18 00:08 APTT 31.5 Seconds (25.6-37.1) 03/17/18 00:08 pO2 34 mm/Hg (30-55) 03/16/18 00:26 VBG pH 7.45 (7.32-7.43) H 03/16/18 00:26 VBG pCO2 43 mmHg (40-60) 03/16/18 00:26 VBG HCO3 28.2 mmol/L 03/16/18 00:26 VBG Total CO2 31.2 mmol/L (22-28) H 03/16/18 00:26 VBG O2 Sat (Calc) 70.6 % (40-65) H 03/16/18 00:26 VBG Base Excess 5.2 mmol/L (0.0-2.0) H 03/16/18 00:26 VBG Potassium 4.6 mmol/L (3.6-5.2) 03/16/18 00:26 Sodium 134.0 mmol/L (132-148) 03/16/18 00:26 Chloride 97.0 mmol/L (98-107) L 03/16/18 00:26 Glucose 293 mg/dL (65-105) H 03/16/18 00:26 Lactate 1.2 mmol/L (0.7-2.1) 03/16/18 00:26 FiO2 21.0 % 03/16/18 00:26 Sodium 140 mmol/l (132-148) 03/24/18 05:45 Potassium 4.6 MMOL/L (3.6-5.0) 03/24/18 05:45 Chloride 102 mmol/L (98-107) 03/24/18 05:45 Carbon Dioxide 32 mmol/L (22-30) H 03/24/18 05:45 Anion Gap 11 (10-20) 03/24/18 05:45 BUN 29 mg/dl (7-17) H 03/24/18 05:45 Creatinine 1.3 mg/dl (0.7-1.2) H 03/24/18 05:45 Est GFR ( Amer) 52 03/24/18 05:45 Est GFR (Non-Af Amer) 43 03/24/18 05:45 POC Glucose (mg/dL) 295 mg/dL (65-110) H 03/25/18 15:28 Random Glucose 176 mg/dL (65-105) H 03/24/18 05:45 Hemoglobin A1c 12.5 % (4.2-6.5) H D 03/18/18 05:25 Calcium 9.7 mg/dL (8.4-10.2) 03/24/18 05:45 Phosphorus 4.1 mg/dl (2.5-4.5) 03/24/18 05:45 Magnesium 2.0 MG/DL (1.6-2.3) 03/24/18 05:45 Total Bilirubin 0.3 mg/dl (0.2-1.3) 03/24/18 05:45 AST 20 U/L (14-36) 03/24/18 05:45 ALT 20 U/L (9-52) 03/24/18 05:45 Alkaline Phosphatase 107 U/L (38-126) 03/24/18 05:45 Total Creatine Kinase 41 U/L (30-135) 03/23/18 15:08 C-Reactive Protein 74.50 mg/L (0.0-9.9) H 03/17/18 00:08 Total Protein 6.7 G/DL (6.3-8.2) 03/24/18 05:45 Albumin 3.4 g/dL (3.5-5.0) L 03/24/18 05:45 Globulin 3.4 gm/dL (2.2-3.9) 03/24/18 05:45 Albumin/Globulin Ratio 1.0 (1.0-2.1) 03/24/18 05:45 Triglycerides 338 mg/DL (0-149) H 03/18/18 05:25 Cholesterol 189 mg/dL (0-199) 03/18/18 05:25 LDL Cholesterol Direct 76 mg/dL (0-129) 03/18/18 05:25 HDL Cholesterol 26 MG/DL (30-70) L 03/18/18 05:25 TSH 3rd Generation 2.85 mIU/ML (0.46-4.68) 03/18/18 05:25 Venous Blood Potassium 4.6 mmol/L (3.6-5.2) 03/16/18 00:26 Urine Color Yellow (YELLOW) 03/17/18 05:30 Urine Clarity Cloudy (Clear) 03/17/18 05:30 Urine pH 5.0 (5.0-8.0) 03/17/18 05:30 Ur Specific [place] 1.016 (1.003-1.030) 03/17/18 05:30 Urine Protein >=500 mg/dL (NEGATIVE) 03/17/18 05:30 Urine Glucose (UA) >=500 mg/dL (Normal) 03/17/18 05:30 Urine Ketones Trace mg/dL (NEGATIVE) 03/17/18 05:30 Urine Blood Moderate (NEGATIVE) 03/17/18 05:30 Urine Nitrate Negative (NEGATIVE) 03/17/18 05:30 Urine Bilirubin Negative (NEGATIVE) 03/17/18 05:30 Urine Urobilinogen 0.2-1.0 mg/dL (0.2-1.0) 03/17/18 05:30 Ur Leukocyte Esterase Neg [place]/uL (Negative) 03/17/18 05:30 Urine RBC (Auto) < 1 /hpf (0-3) 03/17/18 05:30 Urine Microscopic WBC 3 /hpf (0-5) 03/17/18 05:30 Ur Squamous Epith Cells 7 /hpf (0-5) H 03/17/18 05:30 Urine Bacteria Many (<OCC) H 03/17/18 05:30 Hyaline Casts 0-2 /hpf (0-2) 03/17/18 05:30 Vancomycin Trough < 5.0 ug/mL (5.0-10.0) L 03/19/18 05:00 Random Vancomycin < 5.0 ug/mL 03/18/18 11:04 Blood Type B POSITIVE 03/25/18 06:00 Antibody Screen Negative 03/25/18 06:00 Crossmatch See Detail 03/25/18 06:00 BBK History Checked Patient has bt 03/25/18 06:00 - Hospital Course Hospital Course: STILL IN PAIN PODIATRY SURGERY PLANNED Discharge Exam - Head Exam Head Exam: ATRAUMATIC, NORMOCEPHALIC - Eye Exam Eye Exam: EOMI, Normal appearance, PERRL Pupil Exam: NORMAL ACCOMODATION, PERRL - GI/Abdominal Exam GI & Abdominal Exam: Normal Bowel Sounds - Rectal Exam Rectal Exam: NORMAL INSPECTION - Extremities Exam Extremities exam: tenderness Additional comments: R FOOT AND ANKLE - Neurological Exam Neurological exam: Alert, CN II-XII Intact, Normal Gait, Oriented x3, Reflexes Normal - Psychiatric Exam Psychiatric exam: Normal Affect, Normal Mood - Skin Skin Exam: Dry, Intact, Normal Color, Warm Discharge Plan - Follow Up Plan Condition: FAIR Disposition: TRANSF TO SNF Patient education suggested?: Yes Additional Instructions: TRANSFER TO TCU
== END 2018-03-25 21:10 | DRG 638 ==
LOC: H.ER 21:35 → H.ERHOLD 03-17 01:03 → H.MEDSURG1 03-17 03:35
PROVIDERS: ADMIT Internal Medicine Pulmonary Disease; ATTEND Internal Medicine Pulmonary Disease
PROC: 30233N1 Transfusion of Nonautologous Red Blood Cells into Peripheral Vein, Percutaneous Approach (ICD-10-PCS; principal; 2018-03-25)
PROC: 02HV33Z Insertion of Infusion Device into Superior Vena Cava, Percutaneous Approach (ICD-10-PCS; 2018-03-25)
DX: E11.69 Type 2 diabetes mellitus with other specified complication (principal); L03.116 Cellulitis of left lower limb; L97.429 Non-pressure chronic ulcer of left heel and midfoot with unspecified severity; L97.419 Non-pressure chronic ulcer of right heel and midfoot with unspecified severity; M86.9 Osteomyelitis, unspecified; I13.0 Hypertensive heart and chronic kidney disease with heart failure and stage 1 through stage 4 chronic kidney disease, or unspecified chronic kidney disease; E11.610 Type 2 diabetes mellitus with diabetic neuropathic arthropathy; E11.621 Type 2 diabetes mellitus with foot ulcer; I25.10 Atherosclerotic heart disease of native coronary artery without angina pectoris; E11.319 Type 2 diabetes mellitus with unspecified diabetic retinopathy without macular edema; E11.42 Type 2 diabetes mellitus with diabetic polyneuropathy; Z95.5 Presence of coronary angioplasty implant and graft; E11.51 Type 2 diabetes mellitus with diabetic peripheral angiopathy without gangrene; Z89.431 Acquired absence of right foot; Z87.891 Personal history of nicotine dependence; E11.65 Type 2 diabetes mellitus with hyperglycemia; E11.21 Type 2 diabetes mellitus with diabetic nephropathy; F41.1 Generalized anxiety disorder; E78.00 Pure hypercholesterolemia, unspecified; Z86.73 Personal history of transient ischemic attack (TIA), and cerebral infarction without residual deficits; E78.5 Hyperlipidemia, unspecified; F32.9 Major depressive disorder, single episode, unspecified; E11.22 Type 2 diabetes mellitus with diabetic chronic kidney disease; F41.0 Panic disorder [episodic paroxysmal anxiety]; I70.202 Unspecified atherosclerosis of native arteries of extremities, left leg; D63.8 Anemia in other chronic diseases classified elsewhere; I50.9 Heart failure, unspecified; N18.9 Chronic kidney disease, unspecified; S93.33 Other subluxation and dislocation of foot; W18.40XA Slipping, tripping and stumbling without falling, unspecified, initial encounter; Y93.9 Activity, unspecified

== ENCOUNTER 2018-03-28 06:47 | Inpatient (IN) | payer OTHER ==
[2018-03-28] MEDS ORDERED: Rocuronium 10 mg/ml (5 ml) ONE ×3 (07:27→10:35)
[2018-03-28] MEDS ORDERED: Midazolam 2 MG/2 ML VIAL ONE (07:27)
[2018-03-28] MEDS ORDERED: ePHEDrine 50 mg/ml Inj ONE (07:27)
[2018-03-28] MEDS ORDERED: Sodium Chloride 0.9% 10 ML IV ONE (07:32)
[2018-03-28] MEDS ORDERED: ceFAZolin IV 1 gm in Dextrose 2 GM/100 ML BAG IVPB ONE (07:45)
[2018-03-28] MEDS ORDERED: Lactated Ringer's 1,000 ML IV ONE ×3 (08:00→10:19)
[2018-03-28] MEDS ORDERED: Succinylcholine 200 mg/10 ml Inj IV ONE ×2 (08:10→15:31)
[2018-03-28] MEDS ORDERED: Gentamicin 80 mg/2mL Inj. ONE (09:37)
[2018-03-28 10:04] VITALS: BMI 32.6
[2018-03-28] MEDS ORDERED: Neostigmine 1:1000 (1 mg/ml) Inj ONE (10:08)
[2018-03-28] MEDS ORDERED: Gentamicin 80 mg/2mL Inj. IVPB ONE (10:10)
[2018-03-28] MEDS ORDERED: Phenylephrine 10 mg/ml Inj ONE (11:26)
[2018-03-28] MEDS ORDERED: Bupivacaine HCl 0.5% PF (30 ml) Inj IJ ONE (12:05)
[2018-03-28] MEDS ORDERED: Morphine 1 mg/ml preservative-free Inj(Duramorph) ONE (12:06)
[2018-03-28] MEDS: HYDROmorphone 0.5 mg/0.5 ml ISec IVP PRN ×2 (12:30→12:45)
[2018-03-28] MEDS ORDERED: Oxycodone/Acetaminophen 5/325 mg Tab PO PRN (12:35)
--- NOTE | 2018-03-28 12:39 | PCM.SURG1 ---
Surgeon's Initial Post Op Note - Surgeon's Notes Surgeon: Dr. Macdonald DPM Inbound Customer Service Representative: Dr. Hyman DPM, Dr. Doshi PGY3, Dr. Rico PGY3, Dr. 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 M: 4-0 Vicryl, 3-0 nylon. I: 10cc 0.5% Marcaine plain in ankle block fashion Post-Operative Diagnosis: same Operation Performed: Left tendoachilles lengthening, charcot reconstruction with relocation of joint with external fixation Specimen/Specimens Removed: none Estimated Blood Loss: EBL {In ML}: 75 Blood Products Given: N/A Drains Used: No Drains Post-Op Condition: Good Date of Surgery/Procedure: 03/28/18 Time of Surgery/Procedure: 12:40
--- NOTE | 2018-03-28 15:15 | RAD ---
Date of service: 03/28/2018 PROCEDURE: Left Foot Radiographs. HISTORY: s/p left foot surgery COMPARISON: None. FINDINGS: BONES: Examination is markedly obscured by surrounding metallic external fixator or other podiatry device. Emphysematous plantar soft tissue changes seen. No gross fractures identified in the visualized foot bones with Lisfranc fracture in widening of the cuneiform/navicular joints appreciated in the interval. Dorsal soft tissue edema is identified and there is widening of the 1st tarsal-metatarsal joint as well. JOINTS: As above. SOFT TISSUES: As above. OTHER FINDINGS: None. IMPRESSION: External fixator device obscures evaluation of the foot. Please see discussion above.
[2018-03-28] MEDS ORDERED: Propofol 10 mg/ml Inj (20 ML) ONE (15:33)
--- NOTE | 2018-03-28 15:56 | CP.CCUPN ---
CCU Subjective - Physician Review Subjective (Free Text): 03/28/18 18:45 The patient was Seen/interviewed and examined by me at the bedside during ICU round, Medical records reviewed and Management issues were discussed and formulated with the house staff. Events reviewed 52 Years old Female with past medical history of HTN, type diabetes, CGF, obesity, peripheral vascular disease, anxiety, S/P R transmet amputation, anemia of chronic dz. and left Charcot arthropathy and right superficial ulceration. Patient also with Left foot diabetic charcot neuroarthropathy with lisfranc dislocation She underwent Left tendoachilles lengthening, charcot reconstruction with relocation of joint with external fixation today Procedure done under General Anesthesia and was uneventful Estimated Blood Loss: 75 Postoperative she was hypoxemic despite placed on 100% FIO2, urgently orally intubated in the PACU CXR with acute pulmonary edema ordered for IV Lasix Awake, orally intubated Afebrile, No Vasopressors BG >400, started on RISS with Coverage CCU Objective - Vital Signs / Intake & Output Vital Signs (Last 4 hours): Vital Signs Temp Pulse Resp BP Pulse Ox 03/28/18 12:55 85 20 136/57 L 93 L 03/28/18 12:40 97.8 F 85 18 150/98 H 96 03/28/18 12:25 97.5 F L 86 18 103/77 94 L Intake and Output (Last 8hrs): Intake & Output 03/28/18 03/28/18 03/28/18 06:59 14:59 22:59 Intake Total 500 Balance 500 Weight 215 lb Intake: IV 500 - Physical Exam Head: Positive for: Atraumatic, Normocephalic Pupils: Positive for: PERRL Extroacular Muscles: Positive for: EOMI Conjunctiva: Positive for: Normal Mouth: Positive for: Moist Mucous Membranes Nose (Internal): Positive for: Normal Inspection, No Active Bleeding Neck: Positive for: Normal Range of Motion, Trachea Midline. Negative for: Meningeal Signs, MIDLINE TENDERNESS, Paraspinal Tenderness, JVD, Lymphadenopathy , Bruit, Other Respiratory/Chest: Positive for: Decreased Breath Sounds, Rales, Tachypneic. Negative for: Clear to Auscultation, Good Air Exchange, Respiratory Distress, Accessory Muscle Use, Wheezes, Rhonchi Cardiovascular: Positive for: Regular Rate and Rhythm, Normal S1, S2, Peripheal Pulses Present, Tachycardic. Negative for: Murmurs, Irregular Rhythm Abdomen: Positive for: Normal Bowel Sounds. Negative for: Tenderness, Distention, Mass/Organomegaly Psychiatric: Positive for: Alert, Oriented x 3, Anxious - Medications Active Medications: Active Medications Generic Name Dose Route Start Last Admin Trade Name Freq PRN Reason Stop Dose Admin Acetaminophen 650 mg 03/28/18 12:35 Tylenol 325mg Tab PO Q4 PRN Pain, Mild (1-3) Oxycodone/Acetaminophen 1 tab 03/28/18 12:35 Percocet 5/325 Mg Tab PO 03/31/18 12:36 Q4 PRN Pain, moderate (4-7) Oxycodone/Acetaminophen 2 tab 03/28/18 12:35 Percocet 5/325 Mg Tab PO 03/31/18 12:36 Q4 PRN Pain, severe (8-10) - Patient Studies Lab Studies: Lab Studies 03/28/18 03/28/18 Range/Units 12:44 10:45 POC Glucose (mg/dL) 270 H (65-110) mg/dL Blood Type B POSITIVE Antibody Screen Negative BBK History Checked Patient has bt Laboratory Results - last 24 hr 03/28/18 03/28/18 10:45 12:44 POC Glucose (mg/dL) 270 H Blood Type B POSITIVE Antibody Screen Negative BBK History Checked Patient has bt Fingerstick Blood Sugar Results: 270 Review of Systems - Review of Systems Systems not reviewed;Unavailable: Intubated Critical Care Progress Note - Extremities/Vascular Does the Patient have a Central Venous Catheter?: No Does the Patient need a Central Venous Catheter?: No Does the Patient have a Acevedo Catheter?: No Does the Patient need a Acevedo Catheter?: No - Nutrition Nutrition: Nutrition Category Date Time Status Consistent Carbohydrate [DIET] Diets 03/28/18 Lunch Active Assessment/Plan (1) Charcot's joint arthropathy in type 2 diabetes mellitus Current Visit: Yes Status: Acute Priority: High Comment: POD #0 S/P Left tendoachilles lengthening, charcot reconstruction with relocation of joint with external fixation STAT LABS/LYTES/CBC, XR, EKG Perioperative Antibiotics as per podiatry Pain control with fentanyl drip GI/DVT PPX (2) Acute pulmonary edema Current Visit: Yes Status: Acute Priority: High Comment: Continue diuresis to optimize fluid status Lasix 40 mg IVP Strict I&O, daily Wt Trend Trop level and pro-BNP (3) Acute respiratory failure with hypoxia Current Visit: Yes Status: Acute Priority: High Comment: Aggressive pulmonary toilet, chest PT, suctioning BD nebs q 6h prn (4) Acute CHF (congestive heart failure) Current Visit: Yes Status: Acute Priority: High (5) Diabetes mellitus with hyperglycemia Current Visit: Yes Status: Chronic Priority: High Comment: Tight glycemic control, RISS with Coverage
[2018-03-28 16:12] LABS: ABG ALLEN TEST YES; ARTERIAL BLOOD GAS HCO3 22.3 mmol/L (21-28); ARTERIAL BLOOD GAS HEMOGLOBIN 10.3 g/dL (11.7-17.4); ARTERIAL BLOOD GAS O2 CAPACITY 14.3 mL/dL (16-24); ARTERIAL BLOOD GAS PCO2 47 mm/Hg (35-45); ARTERIAL BLOOD GAS PO2 111 mm/Hg (80-100); ARTERIAL BLOOD GAS TCO2 24.5 mmol/L (22-28)
--- NOTE | 2018-03-28 16:15 | RAD ---
HISTORY: sob COMPARISON: Chest x-ray performed 03/16/18 TECHNIQUE: Chest, one view. FINDINGS: Examination markedly limited by habitus. Endotracheal tube extends approximately 1.8 cm above the diane.Right-sided PICC extends expected location of the SVC. LUNGS: Moderate to severe pulmonary edema or infection. No definite pneumothorax. CARDIOVASCULAR: Partially obscured cardiomegaly. OSSEOUS STRUCTURES: No acute osseous abnormality identified. VISUALIZED UPPER ABDOMEN: Unremarkable. OTHER FINDINGS: None. IMPRESSION: Endotracheal tube terminates approximately 1.8 cm above the level the diane. Right-sided PICC extends expected location of the SVC. Moderate to severe pulmonary edema or infection. No definite pneumothorax. Findings discussed with MACEY Turner on at 4:11 p.m.
[2018-03-28] MEDS ORDERED: Propofol 10 mg/ml Inj (100 ml) IV SCH (16:45)
[2018-03-28] MEDS ORDERED: Propofol 10 mg/ml 1,000 MG/100 ML VIAL IV SCH (17:45)
[2018-03-28] MEDS: Fentanyl Citrate 2,500 MCG in Dextrose 5% In Water 200 ML IV SCH (18:08)
[2018-03-28] MEDS ORDERED: Albuterol-Ipratrop 3 mg / 0.5 (3 ml) UD INH PRN (19:02)
[2018-03-28] MEDS: Insulin Regular 100 units/ml SC SCH ×2 (19:16→21:12)
[2018-03-28 19:51] LABS: BASO # 0.2 K/uL (0.0-0.2); EOS % 0.1 % (0.0-4.0); HEMOGLOBIN 10.3 g/dL (12.0-16.0); LYMPH # 0.5 K/uL (1.0-4.3); LYMPH % 3.4 % (20.0-40.0); MEAN CELL VOLUME 82.6 fl (81.0-99.0); MEAN CORPUSCULAR HEMOGLOBIN 26.7 pg (27.0-31.0); MEAN CORPUSCULAR HGB CONC 32.3 g/dL (33.0-37.0); MEAN PLATELET VOLUME 7.5 fl (7.2-11.7); MONO # 0.5 K/uL (0.0-0.8); MONO % 3.2 % (0.0-10.0); NEUT # 14.9 K/uL (1.8-7.0); NEUT % 92.3 % (50.0-75.0); PLATELET COUNT 317 K/uL (130-400); RBC 3.85 Mil/uL (3.80-5.20); RED CELL DISTRIBUTION WIDTH 16.9 % (11.5-14.5); WHITE BLOOD COUNT 16.1 K/uL (4.8-10.8)
[2018-03-28 20:39] LABS: ALBUMIN 3.7 g/dL (3.5-5.0); CALCIUM 9.4 mg/dL (8.4-10.2); TROPONIN I 0.251 ng/mL (0.00-0.120)
[2018-03-28 21:01] LABS: LYMPHOCYTE 4 % (20-50); MONOCYTE 2 % (0-10); NEUTROPHIL 94 % (42-75); PLATELET ESTIMATE NORMAL (NORMAL); TOTAL CELLS COUNTED 100
[2018-03-28 21:02] LABS: ANISOCYTOSIS SLIGHT; OVALOCYTES SLIGHT; STOMATOCYTES SLIGHT
[2018-03-28 21:03] LABS: TEARDROP CELLS SLIGHT
[2018-03-28] MEDS: Propofol 10 mg/ml 1,000 MG/100 ML VIAL IV SCH (22:45)
[2018-03-29] MEDS: Insulin Regular 100 units/ml SC SCH ×3 (00:58→09:08)
[2018-03-29] MEDS: Fentanyl Citrate 2,500 MCG in Dextrose 5% In Water 200 ML IV SCH ×2 (01:46→07:05)
[2018-03-29] MEDS: Propofol 10 mg/ml 1,000 MG/100 ML VIAL IV SCH (04:35)
[2018-03-29 05:24] LABS: HEMOGLOBIN 9.8 g/dL (12.0-16.0); MEAN CELL VOLUME 82.7 fl (81.0-99.0); MEAN CORPUSCULAR HGB CONC 32.6 g/dL (33.0-37.0); RBC 3.62 Mil/uL (3.80-5.20); RED CELL DISTRIBUTION WIDTH 17.2 % (11.5-14.5); WHITE BLOOD COUNT 13.1 K/uL (4.8-10.8)
[2018-03-29 05:31] LABS: CALCIUM 9.3 mg/dL (8.4-10.2)
[2018-03-29 05:50] LABS: TROPONIN I 1.09 ng/mL (0.00-0.120)
--- NOTE | 2018-03-29 08:24 | CP.PCM.HP ---
History of Present Illness - History of Present Illness History of Present Illness: 52 YR OLD FEMALE WHO IS S/P L FOOT SURGERY AND WAS INTUBATED AND IS BEING VENTILATED BECAUSE OF ACUTE RESPIRATORY FAILURE DUE TO ACUTE PULMONARY EDEMA.SHE IS PRESENTLY AWAKE AND ALERT AND IN NO APPARENT DISTRESS.SHE IS STILL ON THE RESPIRATOR FOR ADEQUATE VENTILATION. PMHX-SEVERE PERIPHERAL VASCULAR DZ,OSTEOMYELITIS OF L LEG/FOOT[CHARCOT DEFORMITY ],DM,HTN,ASHD,CHF,ANXIETY,CHRONIC PAIN SYNDROME AND S/P R TRANSMETARTASAL AMPUTATION. Present on Admission - Present on Admission Any Indicators Present on Admission: Yes Past Patient History - Infectious Disease Hx of Infectious Diseases: None - Tetanus Immunizations Tetanus Immunization: Unknown - Past Medical History & Family History Past Medical History?: Yes - Past Social History Smoking Status: Never Smoked - CARDIAC Hx Cardiac Disorders: Yes (HTN, hyperlipidemia,CAD, coronary stent) Hx Angina: Yes Hx Circulatory Problems: Yes Hx Congestive Heart Failure: Yes Hx Heart Attack: Yes Hx Hypercholesterolemia: Yes Hx Hypertension: Yes Hx Peripheral Edema: Yes Hx Peripheral Vascular Disease: Yes Other/Comment: Hyperlipidemia - PULMONARY Hx Respiratory Disorders: No Hx Chronic Obstructive Pulmonary Disease (COPD): No Hx Tuberculosis: No - NEUROLOGICAL Hx Neurological Disorder: Yes (CVA) HX Cerebrovascular Accident: Yes Hx Seizures: No - HEENT Hx HEENT Problems: No - RENAL Hx Chronic Kidney Disease: No Hx Renal Failure: No - ENDOCRINE/METABOLIC Hx Endocrine Disorders: Yes (DM) Hx Diabetes Mellitus Type 1: Yes Hx Diabetes Mellitus Type 2: Yes Hx Hypothyroidism: No - HEMATOLOGICAL/ONCOLOGICAL Hx Blood Disorders: Yes (anemia) Hx AIDS: No Hx Anemia: Yes Hx Blood Transfusions: Yes Hx Blood Transfusion Reaction: Yes Hx Cancer: No Hx Human Immunodeficiency Virus (HIV): No - INTEGUMENTARY Hx Dermatological Problems: Yes Hx Cellulitis: Yes (ble) Other/Comment: Gangrene right 2nd toe - MUSCULOSKELETAL/RHEUMATOLOGICAL Hx Musculoskeletal Disorders: Yes (arthritis, back problems, hernated discs) Hx Arthritis: Yes Hx Back Pain: Yes Hx Degenerative Joint Disease: Yes Hx Falls: No Hx Herniated Disk: Yes Hx Osteomyelitis: Yes Hx Rheumatoid Arthritis: No Other/Comment: L charcot foot - GASTROINTESTINAL Hx Gastrointestinal Disorders: Yes - GENITOURINARY/GYNECOLOGICAL Hx Genitourinary Disorders: No Hx Sexually Transmitted Disorders: No Other/Comment: c section,ovarian cystectomy - PSYCHIATRIC Hx Psychophysiologic Disorder: Yes (anxiety, depression) Hx Anxiety: Yes Hx Depression: Yes Hx Emotional Abuse: No Hx Panic Symptoms: Yes Hx Physical Abuse: No Hx Substance Use: No - SURGICAL HISTORY Hx Surgeries: Yes Hx Amputation: Yes (right toes 2 years ago) Hx Appendectomy: Yes Hx Cardiac Catheterization: Yes (x1 stent) Hx Section: Yes (1996) Hx Coronary Stent: Yes Hx Orthopedic Surgery: Yes (Amputation toes right foot, 2 years ago) Hx Vascular Surgery: Yes (INSERTION OF STENT ON THE RIGHT LEG) Other/Comment: surgery L arm for compartmental syndrome. multiple foot surgeries. removal of ovaries - ANESTHESIA Hx Anesthesia: Yes Hx Anesthesia Reactions: Yes (CAN'T BREATH-ADMITTED TO ICU) Hx Malignant Hyperthermia: No Meds Allergies/Adverse Reactions: Allergies Allergy/AdvReac Type Severity Reaction Status Date / Time No Known Allergies Allergy Verified 03/17/18 04:21 Physical Exam - Constitutional Appears: No Acute Distress Additional comments: INTUBATED AND BEING VENTILATED - Head Exam Head Exam: ATRAUMATIC, NORMAL INSPECTION, NORMOCEPHALIC - Eye Exam Eye Exam: EOMI, Normal appearance, PERRL Pupil Exam: NORMAL ACCOMODATION, PERRL - ENT Exam ENT Exam: Mucous Membranes Moist, Normal Exam - Neck Exam Neck exam: Positive for: Normal Inspection - Respiratory Exam Respiratory Exam: Rales Additional comments: INTUBATED - Cardiovascular Exam Cardiovascular Exam: REGULAR RHYTHM - GI/Abdominal Exam GI & Abdominal Exam: Normal Bowel Sounds, Soft. absent: Tenderness - Rectal Exam Rectal Exam: NORMAL INSPECTION - Extremities Exam Additional comments: R TRANSMET AMPUTATION L FOOT IN SURGICAL DRESSING - Back Exam Back exam: NORMAL INSPECTION - Neurological Exam Neurological exam: Alert, CN II-XII Intact, Oriented x3 - Skin Skin Exam: Dry, Warm Results - Vital Signs Recent Vital Signs: Last Vital Signs Temp 99.2 F 03/29/18 04:00 Pulse 89 03/29/18 06:00 Resp 14 03/29/18 06:00 BP 159/85 H 03/29/18 06:00 Pulse Ox 100 03/29/18 06:00 - Labs Result Diagrams: 03/29/18 04:19 03/29/18 04:19 Labs: Laboratory Results - last 24 hr 03/28/18 03/28/18 03/28/18 10:45 12:44 16:09 WBC RBC Hgb Hct MCV MCH MCHC RDW Plt Count MPV Neut % (Auto) Lymph % (Auto) Mcminn % (Auto) Eos % (Auto) Baso % (Auto) Neut # (Auto) Lymph # (Auto) Mcminn # (Auto) Eos # (Auto) Baso # (Auto) Neutrophils % (Manual) Lymphocytes % (Manual) Monocytes % (Manual) Platelet Estimate Anisocytosis (manual) Tear Drop Cells Ovalocytes Stomatocytes pCO2 47 H pO2 111 H HCO3 22.3 ABG pH 7.30 L ABG Total CO2 24.5 ABG O2 Saturation 98.0 ABG O2 Content 14.0 L ABG Base Excess -3.4 L ABG Hemoglobin 10.3 L ABG Carboxyhemoglobin 1.6 H POC ABG HHb (Measured) 1.9 ABG Methemoglobin 1.2 ABG O2 Capacity 14.3 L Tony Test Yes A-a O2 Difference 543.0 Hgb O2 Saturation 95.3 Vent Mode A/c Mechanical Rate 10 FiO2 100.0 Tidal Volume 500 Sodium Potassium Chloride Carbon Dioxide Anion Gap BUN Creatinine Est GFR ( Amer) Est GFR (Non-Af Amer) POC Glucose (mg/dL) 270 H Random Glucose Calcium Phosphorus Magnesium Total Bilirubin AST ALT Alkaline Phosphatase Troponin I NT-Pro-B Natriuret Pep Total Protein Albumin Globulin Albumin/Globulin Ratio Blood Type B POSITIVE Antibody Screen Negative BBK History Checked Patient has bt 03/28/18 03/28/18 03/28/18 18:19 18:22 19:25 WBC 16.1 H D RBC 3.85 Hgb 10.3 L Hct 31.8 L MCV 82.6 MCH 26.7 L MCHC 32.3 L RDW 16.9 H Plt Count 317 MPV 7.5 Neut % (Auto) 92.3 H Lymph % (Auto) 3.4 L Mcminn % (Auto) 3.2 Eos % (Auto) 0.1 Baso % (Auto) 1.0 Neut # (Auto) 14.9 H Lymph # (Auto) 0.5 L Mcminn # (Auto) 0.5 Eos # (Auto) 0.0 Baso # (Auto) 0.2 Neutrophils % (Manual) 94 H Lymphocytes % (Manual) 4 L Monocytes % (Manual) 2 Platelet Estimate Normal Anisocytosis (manual) Slight Tear Drop Cells Slight Ovalocytes Slight Stomatocytes Slight pCO2 pO2 HCO3 ABG pH ABG Total CO2 ABG O2 Saturation ABG O2 Content ABG Base Excess ABG Hemoglobin ABG Carboxyhemoglobin POC ABG HHb (Measured) ABG Methemoglobin ABG O2 Capacity Tony Test A-a O2 Difference Hgb O2 Saturation Vent Mode Mechanical Rate FiO2 Tidal Volume Sodium Potassium Chloride Carbon Dioxide Anion Gap BUN Creatinine Est GFR ( Amer) Est GFR (Non-Af Amer) POC Glucose (mg/dL) 403 H* 401 H* Random Glucose Calcium Phosphorus Magnesium Total Bilirubin AST ALT Alkaline Phosphatase Troponin I NT-Pro-B Natriuret Pep Total Protein Albumin Globulin Albumin/Globulin Ratio Blood Type Antibody Screen BBK History Checked 03/28/18 03/28/18 03/29/18 19:25 21:08 00:54 WBC RBC Hgb Hct MCV MCH MCHC RDW Plt Count MPV Neut % (Auto) Lymph % (Auto) Mcminn % (Auto) Eos % (Auto) Baso % (Auto) Neut # (Auto) Lymph # (Auto) Mcminn # (Auto) Eos # (Auto) Baso # (Auto) Neutrophils % (Manual) Lymphocytes % (Manual) Monocytes % (Manual) Platelet Estimate Anisocytosis (manual) Tear Drop Cells Ovalocytes Stomatocytes pCO2 pO2 HCO3 ABG pH ABG Total CO2 ABG O2 Saturation ABG O2 Content ABG Base Excess ABG Hemoglobin ABG Carboxyhemoglobin POC ABG HHb (Measured) ABG Methemoglobin ABG O2 Capacity Tony Test A-a O2 Difference Hgb O2 Saturation Vent Mode Mechanical Rate FiO2 Tidal Volume Sodium 139 Potassium 4.5 Chloride 102 Carbon Dioxide 28 Anion Gap 14 BUN 31 H Creatinine 1.2 Est GFR ( Amer) 57 Est GFR (Non-Af Amer) 47 POC Glucose (mg/dL) 384 H 351 H Random Glucose 421 H* D Calcium 9.4 Phosphorus 5.3 H Magnesium 1.9 Total Bilirubin 0.6 AST 25 ALT 21 Alkaline Phosphatase 111 Troponin I 0.2510 H* NT-Pro-B Natriuret Pep 2380 H Total Protein 7.2 Albumin 3.7 Globulin 3.5 Albumin/Globulin Ratio 1.0 Blood Type Antibody Screen BBK History Checked 03/29/18 03/29/18 03/29/18 04:19 04:19 05:44 WBC 13.1 H RBC 3.62 L Hgb 9.8 L Hct 30.0 L MCV 82.7 MCH 27.0 MCHC 32.6 L RDW 17.2 H Plt Count 300 MPV Neut % (Auto) Lymph % (Auto) Mcminn % (Auto) Eos % (Auto) Baso % (Auto) Neut # (Auto) Lymph # (Auto) Mcminn # (Auto) Eos # (Auto) Baso # (Auto) Neutrophils % (Manual) Lymphocytes % (Manual) Monocytes % (Manual) Platelet Estimate Anisocytosis (manual) Tear Drop Cells Ovalocytes Stomatocytes pCO2 pO2 HCO3 ABG pH ABG Total CO2 ABG O2 Saturation ABG O2 Content ABG Base Excess ABG Hemoglobin ABG Carboxyhemoglobin POC ABG HHb (Measured) ABG Methemoglobin ABG O2 Capacity Tony Test A-a O2 Difference Hgb O2 Saturation Vent Mode Mechanical Rate FiO2 Tidal Volume Sodium 140 Potassium 4.4 Chloride 100 Carbon Dioxide 31 H Anion Gap 13 BUN 33 H Creatinine 1.3 H Est GFR ( Amer) 52 Est GFR (Non-Af Amer) 43 POC Glucose (mg/dL) 333 H Random Glucose 390 H Calcium 9.3 Phosphorus Magnesium Total Bilirubin AST ALT Alkaline Phosphatase Troponin I 1.0900 H* NT-Pro-B Natriuret Pep Total Protein Albumin Globulin Albumin/Globulin Ratio Blood Type Antibody Screen BBK History Checked 03/29/18 08:05 WBC RBC Hgb Hct MCV MCH MCHC RDW Plt Count MPV Neut % (Auto) Lymph % (Auto) Mcminn % (Auto) Eos % (Auto) Baso % (Auto) Neut # (Auto) Lymph # (Auto) Mcminn # (Auto) Eos # (Auto) Baso # (Auto) Neutrophils % (Manual) Lymphocytes % (Manual) Monocytes % (Manual) Platelet Estimate Anisocytosis (manual) Tear Drop Cells Ovalocytes Stomatocytes pCO2 pO2 HCO3 ABG pH ABG Total CO2 ABG O2 Saturation ABG O2 Content ABG Base Excess ABG Hemoglobin ABG Carboxyhemoglobin POC ABG HHb (Measured) ABG Methemoglobin ABG O2 Capacity Tony Test A-a O2 Difference Hgb O2 Saturation Vent Mode Mechanical Rate FiO2 Tidal Volume Sodium Potassium Chloride Carbon Dioxide Anion Gap BUN Creatinine Est GFR ( Amer) Est GFR (Non-Af Amer) POC Glucose (mg/dL) 304 H Random Glucose Calcium Phosphorus Magnesium Total Bilirubin AST ALT Alkaline Phosphatase Troponin I NT-Pro-B Natriuret Pep Total Protein Albumin Globulin Albumin/Globulin Ratio Blood Type Antibody Screen BBK History Checked Assessment & Plan - Assessment and Plan (Free Text) Assessment: ACUTE PULMONARY EDEMA ELEVATED TROPONIN--R/O ACUTE CA S/P L FOOT SURGERY HTN SEVERE PVD DM TYPE 2--UNCONTROLLED ASHD ANXIETY WITH DEPRESSION OSTEOMYELITIS AND CELLULITIS OF L FOOT Plan: ATTEMPT TO WEAN OFF VENTILATOR PODIATRY FOLLOW UP CARDIAC/ENDOCRINE AND ID FOLLOW UP PROGNOSIS IS GUARDED - Date & Time Date: 03/29/18 Time: 08:30
--- NOTE | 2018-03-29 08:26 | RAD ---
Date of service: 03/29/2018 PROCEDURE: CHEST RADIOGRAPH, 1 VIEW HISTORY: Acute Pulmonary edema COMPARISON: Portable chest 03/28/2018 5:01 p.m.. FINDINGS: LUNGS: Endotracheal tube and right PICC are not significantly changed in position. Slightly diminished bilateral infiltrates are appreciated. PLEURA: No pneumothorax or pleural fluid seen. CARDIOVASCULAR: Cardiomediastinal silhouette is stable. Pulmonary vascular congestion pattern slightly improved. OSSEOUS STRUCTURES: No significant abnormalities. VISUALIZED UPPER ABDOMEN: Normal. OTHER FINDINGS: None. IMPRESSION: Likely improved CHF. Bilateral airspace disease appears improved.
--- NOTE | 2018-03-29 08:28 | RAD ---
Date of service: 03/28/2018 HISTORY: s/p lasix and ETT tube placement COMPARISON: Portable chest 03/28/2018 3:46 p.m.. FINDINGS: LUNGS: Endotracheal tube and right PICC are unchanged in position with increased bilateral airspace disease identified, right greater than left. PLEURA: No significant pleural effusion identified, no pneumothorax apparent. CARDIOVASCULAR: Stable cardiomediastinal silhouette with pulmonary edema remaining in question bilaterally, potentially increased. OSSEOUS STRUCTURES: No significant abnormalities. VISUALIZED UPPER ABDOMEN: Normal. OTHER FINDINGS: None. IMPRESSION: Increased infiltrates or pulmonary edema identified. No pleural effusion or pneumothorax bilaterally.
[2018-03-29] MEDS ORDERED: Enoxaparin 40 mg Syringe SC SCH (09:00)
--- NOTE | 2018-03-29 10:36 | CP.CCUPN ---
CCU Subjective - Physician Review Subjective (Free Text): 03/29/18 7:48 The patient was Seen/interviewed and examined by me at the bedside during ICU round, Medical records reviewed and Management issues were discussed and formulated with the house staff. Events reviewed 52 Years old Female with past medical history of HTN, type diabetes, obesity, peripheral vascular disease, anxiety, S/P R transmet amputation, anemia of chronic disease. and left Charcot arthropathy and right superficial ulceration. 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; She underwent Left tendoachilles lengthening, charcot reconstruction with relocation of joint with external fixation Procedure done under General Anesthesia and was uneventful Estimated Blood Loss: 75 Postoperative she was hypoxemic despite placed on 100% FIO2, urgently orally intubated in the PACU CXR with acute pulmonary edema Received IV Lasix Arrived to ICU awake, orally intubated, BG >400, started on RISS with Coverage This morning she feels well and is hemodynamically stable, denies any chest pain or SOB Clinically improving, hemodynamically improved No Vasopressors Awake, comfortable, NAD Afebrile, Last 24H I&O 1050/4800 7:30AM, she was placed on CPAP trial This morning labs revealed improved Leucocytosis to K13, slight worsening renal function BUN/Cr up to 33/1.3 Trop elevation of 0.2510-1.0900, Pt started on ASA/Plavix , Lovenox, Statins, beta ash and Imdur Pt doing well on CPAP trial with good saturation and adequate tidal volume,And the plan is give additional IV Lasix and for extubation this morning Critical Care Time Spent (in minutes): 48 CCU Objective - Vital Signs / Intake & Output Vital Signs (Last 4 hours): Vital Signs Temp Pulse Resp BP Pulse Ox 03/29/18 10:00 86 14 155/77 H 100 03/29/18 09:00 194/75 H 03/29/18 08:00 98.7 F 97 H 33 H 194/75 H 97 Intake and Output (Last 8hrs): Intake & Output 03/28/18 03/29/18 03/29/18 22:59 06:59 14:59 Intake Total 25 325 250 Output Total 2600 2200 Balance -2575 -1875 250 Intake: IV 25 325 250 Output: Urine 2600 2200 Urethral (Acevedo) 1000 2200 Other: # Bowel Movements 0 - Physical Exam Head: Positive for: Atraumatic, Normocephalic. Negative for: Tenderness, Contusion, Swelling Pupils: Positive for: PERRL. Negative for: Sluggish, Non-Reactive Extroacular Muscles: Positive for: EOMI. Negative for: Gaze Palsy Conjunctiva: Positive for: Normal. Negative for: Injected, Icteric Ears: Positive for: Normal Mouth: Positive for: Moist Mucous Membranes Pharnyx: Positive for: Normal. Negative for: ERYTHEMA Nose (Internal): Positive for: Normal Inspection, No Active Bleeding Neck: Positive for: Normal Range of Motion, Trachea Midline. Negative for: Meningeal Signs, MIDLINE TENDERNESS, Paraspinal Tenderness, JVD, Lymphadenopathy , Bruit, Other Respiratory/Chest: Positive for: Decreased Breath Sounds, Rales, Tachypneic. Negative for: Clear to Auscultation, Good Air Exchange, Respiratory Distress, Accessory Muscle Use, Wheezes, Rhonchi Cardiovascular: Positive for: Regular Rate and Rhythm, Normal S1, S2, Peripheal Pulses Present, Tachycardic. Negative for: Murmurs, Irregular Rhythm Abdomen: Positive for: Normal Bowel Sounds. Negative for: Tenderness, Distention, Mass/Organomegaly Upper Extremity: Positive for: Normal Inspection. Negative for: Cyanosis, Edema Lower Extremity: Positive for: Normal Inspection. Negative for: Edema, CALF TENDERNESS Neurological: Positive for: Motor Func Grossly Intact, Normal Sensory Function Psychiatric: Positive for: Alert, Oriented x 3, Anxious - Medications Active Medications: Active Medications Generic Name Dose Route Start Last Admin Trade Name Freq PRN Reason Stop Dose Admin Acetaminophen 650 mg 03/28/18 12:35 Tylenol 325mg Tab PO Q4 PRN Pain, Mild (1-3) Albuterol/Ipratropium 3 ml 03/28/18 19:02 Duoneb 3 Mg/0.5 Mg (3 Ml) Ud INH RQ6 PRN Shortness of Breath Alprazolam 0.25 mg 03/29/18 10:15 Xanax PO 04/05/18 10:16 Q12 COUNT INCLUDES THE [facility] Aspirin 300 mg 03/29/18 09:00 Aspirin Supp RC DAILY COUNT INCLUDES THE [facility] Atorvastatin Calcium 40 mg 03/29/18 22:00 Lipitor PO HS COUNT INCLUDES THE [facility] Clopidogrel Bisulfate 75 mg 03/29/18 09:00 Plavix PO DAILY COUNT INCLUDES THE [facility] Enalapril Maleate 10 mg 03/29/18 17:00 Vasotec PO BID COUNT INCLUDES THE [facility] Enoxaparin Sodium 100 mg 03/29/18 21:00 Lovenox SC Q12 COUNT INCLUDES THE [facility] Protocol Fentanyl Citrate 2,500 mcg/ 250 mls @ 9.75 mls/hr 03/28/18 17:45 03/29/18 07: 05 Dextrose IV 5 mcg/kg/hr .Q24H COUNT INCLUDES THE [facility] 48.76 mls/hr Protocol Administration 1 MCG/KG/HR Propofol 1,000 mg in 100 mls @ 2.926 mls/hr 03/28/18 17:45 03/28/18 15:45 Diprivan IV 03/29/18 17:36 0 mls .Q24H COUNT INCLUDES THE [facility] Administration Protocol 5 MCG/KG/MIN Propofol 1,000 mg in 100 mls @ 2.926 mls/hr 03/28/18 21:45 03/29/18 04:35 Diprivan IV 03/29/18 21:40 30 mcg/kg/min .Q24H COUNT INCLUDES THE [facility] 17.554 mls/hr Protocol Administration 5 MCG/KG/MIN Insulin Detemir 70 units 03/29/18 22:00 Levemir SC HS COUNT INCLUDES THE [facility] Insulin Human Lispro 28 units 03/29/18 11:30 Humalog SC AC COUNT INCLUDES THE [facility] Insulin Human Regular 0 units 03/28/18 19:00 03/29/18 09:08 Humulin R SC 6 units Q4 COUNT INCLUDES THE [facility] Administration Protocol Isosorbide Mononitrate 60 mg 03/29/18 10:15 Imdur PO DAILY COUNT INCLUDES THE [facility] Metoprolol Succinate 200 mg 03/29/18 21:00 Toprol Xl PO Q12 COUNT INCLUDES THE [facility] Oxycodone/Acetaminophen 1 tab 03/28/18 12:35 Percocet 5/325 Mg Tab PO 03/31/18 12:36 Q4 PRN Pain, moderate (4-7) Oxycodone/Acetaminophen 2 tab 03/28/18 12:35 Percocet 5/325 Mg Tab PO 03/31/18 12:36 Q4 PRN Pain, severe (8-10) Pantoprazole Sodium 40 mg 03/29/18 09:00 03/29/18 09:05 Protonix Inj IVP 40 mg DAILY COUNT INCLUDES THE [facility] Administration - Patient Studies Lab Studies: Lab Studies 0903/29/18 03/29/18 Range/Units 08:05 05:44 04:19 WBC 13.1 H (4.8-10.8) K/uL RBC 3.62 L (3.80-5.20) Mil/uL Hgb 9.8 L (12.0-16.0) g/dL Hct 30.0 L (34.0-47.0) % MCV 82.7 (81.0-99.0) fl MCH 27.0 (27.0-31.0) pg MCHC 32.6 L (33.0-37.0) g/dL RDW 17.2 H (11.5-14.5) % Plt Count 300 (130-400) K/uL MPV (7.2-11.7) fl Neut % (Auto) (50.0-75.0) % Lymph % (Auto) (20.0-40.0) % Hyde % (Auto) (0.0-10.0) % Eos % (Auto) (0.0-4.0) % Baso % (Auto) (0.0-2.0) % Neut # (Auto) (1.8-7.0) K/uL Lymph # (Auto) (1.0-4.3) K/uL Hyde # (Auto) (0.0-0.8) K/uL Eos # (Auto) (0.0-0.7) K/uL Baso # (Auto) (0.0-0.2) K/uL Neutrophils % (Manual) (42-75) % Lymphocytes % (Manual) (20-50) % Monocytes % (Manual) (0-10) % Platelet Estimate (NORMAL) Anisocytosis (manual) Tear Drop Cells Ovalocytes Stomatocytes pCO2 (35-45) mm/Hg pO2 (80-100) mm/Hg HCO3 (21-28) mmol/L ABG pH (7.35-7.45) ABG Total CO2 (22-28) mmol/L ABG O2 Saturation (95-98) % ABG O2 Content (15-23) ML/dL ABG Base Excess (-2.0-3.0) mmol/L ABG Hemoglobin (11.7-17.4) g/dL ABG Carboxyhemoglobin (0.5-1.5) % POC ABG HHb (Measured) (0.0-5.0) % ABG Methemoglobin (0.0-3.0) % ABG O2 Capacity (16-24) mL/dL Tony Test A-a O2 Difference mm/Hg Hgb O2 Saturation (95.0-98.0) % Vent Mode Mechanical Rate FiO2 % Tidal Volume Sodium (132-148) mmol/l Potassium (3.6-5.0) MMOL/L Chloride (98-107) mmol/L Carbon Dioxide (22-30) mmol/L Anion Gap (10-20) BUN (7-17) mg/dl Creatinine (0.7-1.2) mg/dl Est GFR ( Amer) Est GFR (Non-Af Amer) POC Glucose (mg/dL) 304 H 333 H (65-110) mg/dL Random Glucose (65-105) mg/dL Calcium (8.4-10.2) mg/dL Phosphorus (2.5-4.5) mg/dl Magnesium (1.6-2.3) MG/DL Total Bilirubin (0.2-1.3) mg/dl AST (14-36) U/L ALT (9-52) U/L Alkaline Phosphatase (38-126) U/L Troponin I (0.00-0.120) ng/mL NT-Pro-B Natriuret Pep (0-900) pg/ml Total Protein (6.3-8.2) G/DL Albumin (3.5-5.0) g/dL Globulin (2.2-3.9) gm/dL Albumin/Globulin Ratio (1.0-2.1) Blood Type Antibody Screen BBK History Checked 03/29/18 03/29/18 03/28/18 Range/Units 04:19 00:54 21:08 WBC (4.8-10.8) K/uL RBC (3.80-5.20) Mil/uL Hgb (12.0-16.0) g/dL Hct (34.0-47.0) % MCV (81.0-99.0) fl MCH (27.0-31.0) pg MCHC (33.0-37.0) g/dL RDW (11.5-14.5) % Plt Count (130-400) K/uL MPV (7.2-11.7) fl Neut % (Auto) (50.0-75.0) % Lymph % (Auto) (20.0-40.0) % Hyde % (Auto) (0.0-10.0) % Eos % (Auto) (0.0-4.0) % Baso % (Auto) (0.0-2.0) % Neut # (Auto) (1.8-7.0) K/uL Lymph # (Auto) (1.0-4.3) K/uL Hyde # (Auto) (0.0-0.8) K/uL Eos # (Auto) (0.0-0.7) K/uL Baso # (Auto) (0.0-0.2) K/uL Neutrophils % (Manual) (42-75) % Lymphocytes % (Manual) (20-50) % Monocytes % (Manual) (0-10) % Platelet Estimate (NORMAL) Anisocytosis (manual) Tear Drop Cells Ovalocytes Stomatocytes pCO2 (35-45) mm/Hg pO2 (80-100) mm/Hg HCO3 (21-28) mmol/L ABG pH (7.35-7.45) ABG Total CO2 (22-28) mmol/L ABG O2 Saturation (95-98) % ABG O2 Content (15-23) ML/dL ABG Base Excess (-2.0-3.0) mmol/L ABG Hemoglobin (11.7-17.4) g/dL ABG Carboxyhemoglobin (0.5-1.5) % POC ABG HHb (Measured) (0.0-5.0) % ABG Methemoglobin (0.0-3.0) % ABG O2 Capacity (16-24) mL/dL Tony Test A-a O2 Difference mm/Hg Hgb O2 Saturation (95.0-98.0) % Vent Mode Mechanical Rate FiO2 % Tidal Volume Sodium 140 (132-148) mmol/l Potassium 4.4 (3.6-5.0) MMOL/L Chloride 100 (98-107) mmol/L Carbon Dioxide 31 H (22-30) mmol/L Anion Gap 13 (10-20) BUN 33 H (7-17) mg/dl Creatinine 1.3 H (0.7-1.2) mg/dl Est GFR ( Amer) 52 Est GFR (Non-Af Amer) 43 POC Glucose (mg/dL) 351 H 384 H (65-110) mg/dL Random Glucose 390 H (65-105) mg/dL Calcium 9.3 (8.4-10.2) mg/dL Phosphorus (2.5-4.5) mg/dl Magnesium (1.6-2.3) MG/DL Total Bilirubin (0.2-1.3) mg/dl AST (14-36) U/L ALT (9-52) U/L Alkaline Phosphatase (38-126) U/L Troponin I 1.0900 H* (0.00-0.120) ng/mL NT-Pro-B Natriuret Pep (0-900) pg/ml Total Protein (6.3-8.2) G/DL Albumin (3.5-5.0) g/dL Globulin (2.2-3.9) gm/dL Albumin/Globulin Ratio (1.0-2.1) Blood Type Antibody Screen BBK History Checked 03/28/18 03/28/18 03/28/18 Range/Units 19:25 19:25 18:22 WBC 16.1 H D (4.8-10.8) K/uL RBC 3.85 (3.80-5.20) Mil/uL Hgb 10.3 L (12.0-16.0) g/dL Hct 31.8 L (34.0-47.0) % MCV 82.6 (81.0-99.0) fl MCH 26.7 L (27.0-31.0) pg MCHC 32.3 L (33.0-37.0) g/dL RDW 16.9 H (11.5-14.5) % Plt Count 317 (130-400) K/uL MPV 7.5 (7.2-11.7) fl Neut % (Auto) 92.3 H (50.0-75.0) % Lymph % (Auto) 3.4 L (20.0-40.0) % Hyde % (Auto) 3.2 (0.0-10.0) % Eos % (Auto) 0.1 (0.0-4.0) % Baso % (Auto) 1.0 (0.0-2.0) % Neut # (Auto) 14.9 H (1.8-7.0) K/uL Lymph # (Auto) 0.5 L (1.0-4.3) K/uL Hyde # (Auto) 0.5 (0.0-0.8) K/uL Eos # (Auto) 0.0 (0.0-0.7) K/uL Baso # (Auto) 0.2 (0.0-0.2) K/uL Neutrophils % (Manual) 94 H (42-75) % Lymphocytes % (Manual) 4 L (20-50) % Monocytes % (Manual) 2 (0-10) % Platelet Estimate Normal (NORMAL) Anisocytosis (manual) Slight Tear Drop Cells Slight Ovalocytes Slight Stomatocytes Slight pCO2 (35-45) mm/Hg pO2 (80-100) mm/Hg HCO3 (21-28) mmol/L ABG pH (7.35-7.45) ABG Total CO2 (22-28) mmol/L ABG O2 Saturation (95-98) % ABG O2 Content (15-23) ML/dL ABG Base Excess (-2.0-3.0) mmol/L ABG Hemoglobin (11.7-17.4) g/dL ABG Carboxyhemoglobin (0.5-1.5) % POC ABG HHb (Measured) (0.0-5.0) % ABG Methemoglobin (0.0-3.0) % ABG O2 Capacity (16-24) mL/dL Tony Test A-a O2 Difference mm/Hg Hgb O2 Saturation (95.0-98.0) % Vent Mode Mechanical Rate FiO2 % Tidal Volume Sodium 139 (132-148) mmol/l Potassium 4.5 (3.6-5.0) MMOL/L Chloride 102 (98-107) mmol/L Carbon Dioxide 28 (22-30) mmol/L Anion Gap 14 (10-20) BUN 31 H (7-17) mg/dl Creatinine 1.2 (0.7-1.2) mg/dl Est GFR ( Amer) 57 Est GFR (Non-Af Amer) 47 POC Glucose (mg/dL) 401 H* (65-110) mg/dL Random Glucose 421 H* D (65-105) mg/dL Calcium 9.4 (8.4-10.2) mg/dL Phosphorus 5.3 H (2.5-4.5) mg/dl Magnesium 1.9 (1.6-2.3) MG/DL Total Bilirubin 0.6 (0.2-1.3) mg/dl AST 25 (14-36) U/L ALT 21 (9-52) U/L Alkaline Phosphatase 111 (38-126) U/L Troponin I 0.2510 H* (0.00-0.120) ng/mL NT-Pro-B Natriuret Pep 2380 H (0-900) pg/ml Total Protein 7.2 (6.3-8.2) G/DL Albumin 3.7 (3.5-5.0) g/dL Globulin 3.5 (2.2-3.9) gm/dL Albumin/Globulin Ratio 1.0 (1.0-2.1) Blood Type Antibody Screen BBK History Checked 03/28/18 03/28/18 03/28/18 Range/Units 18:19 16:09 12:44 WBC (4.8-10.8) K/uL RBC (3.80-5.20) Mil/uL Hgb (12.0-16.0) g/dL Hct (34.0-47.0) % MCV (81.0-99.0) fl MCH (27.0-31.0) pg MCHC (33.0-37.0) g/dL RDW (11.5-14.5) % Plt Count (130-400) K/uL MPV (7.2-11.7) fl Neut % (Auto) (50.0-75.0) % Lymph % (Auto) (20.0-40.0) % Hyde % (Auto) (0.0-10.0) % Eos % (Auto) (0.0-4.0) % Baso % (Auto) (0.0-2.0) % Neut # (Auto) (1.8-7.0) K/uL Lymph # (Auto) (1.0-4.3) K/uL Hyde # (Auto) (0.0-0.8) K/uL Eos # (Auto) (0.0-0.7) K/uL Baso # (Auto) (0.0-0.2) K/uL Neutrophils % (Manual) (42-75) % Lymphocytes % (Manual) (20-50) % Monocytes % (Manual) (0-10) % Platelet Estimate (NORMAL) Anisocytosis (manual) Tear Drop Cells Ovalocytes Stomatocytes pCO2 47 H (35-45) mm/Hg pO2 111 H (80-100) mm/Hg HCO3 22.3 (21-28) mmol/L ABG pH 7.30 L (7.35-7.45) ABG Total CO2 24.5 (22-28) mmol/L ABG O2 Saturation 98.0 (95-98) % ABG O2 Content 14.0 L (15-23) ML/dL ABG Base Excess -3.4 L (-2.0-3.0) mmol/L ABG Hemoglobin 10.3 L (11.7-17.4) g/dL ABG Carboxyhemoglobin 1.6 H (0.5-1.5) % POC ABG HHb (Measured) 1.9 (0.0-5.0) % ABG Methemoglobin 1.2 (0.0-3.0) % ABG O2 Capacity 14.3 L (16-24) mL/dL Tony Test Yes A-a O2 Difference 543.0 mm/Hg Hgb O2 Saturation 95.3 (95.0-98.0) % Vent Mode A/c Mechanical Rate 10 FiO2 100.0 % Tidal Volume 500 Sodium (132-148) mmol/l Potassium (3.6-5.0) MMOL/L Chloride (98-107) mmol/L Carbon Dioxide (22-30) mmol/L Anion Gap (10-20) BUN (7-17) mg/dl Creatinine (0.7-1.2) mg/dl Est GFR ( Amer) Est GFR (Non-Af Amer) POC Glucose (mg/dL) 403 H* 270 H (65-110) mg/dL Random Glucose (65-105) mg/dL Calcium (8.4-10.2) mg/dL Phosphorus (2.5-4.5) mg/dl Magnesium (1.6-2.3) MG/DL Total Bilirubin (0.2-1.3) mg/dl AST (14-36) U/L ALT (9-52) U/L Alkaline Phosphatase (38-126) U/L Troponin I (0.00-0.120) ng/mL NT-Pro-B Natriuret Pep (0-900) pg/ml Total Protein (6.3-8.2) G/DL Albumin (3.5-5.0) g/dL Globulin (2.2-3.9) gm/dL Albumin/Globulin Ratio (1.0-2.1) Blood Type Antibody Screen BBK History Checked 03/28/18 Range/Units 10:45 WBC (4.8-10.8) K/uL RBC (3.80-5.20) Mil/uL Hgb (12.0-16.0) g/dL Hct (34.0-47.0) % MCV (81.0-99.0) fl MCH (27.0-31.0) pg MCHC (33.0-37.0) g/dL RDW (11.5-14.5) % Plt Count (130-400) K/uL MPV (7.2-11.7) fl Neut % (Auto) (50.0-75.0) % Lymph % (Auto) (20.0-40.0) % Hyde % (Auto) (0.0-10.0) % Eos % (Auto) (0.0-4.0) % Baso % (Auto) (0.0-2.0) % Neut # (Auto) (1.8-7.0) K/uL Lymph # (Auto) (1.0-4.3) K/uL Hyde # (Auto) (0.0-0.8) K/uL Eos # (Auto) (0.0-0.7) K/uL Baso # (Auto) (0.0-0.2) K/uL Neutrophils % (Manual) (42-75) % Lymphocytes % (Manual) (20-50) % Monocytes % (Manual) (0-10) % Platelet Estimate (NORMAL) Anisocytosis (manual) Tear Drop Cells Ovalocytes Stomatocytes pCO2 (35-45) mm/Hg pO2 (80-100) mm/Hg HCO3 (21-28) mmol/L ABG pH (7.35-7.45) ABG Total CO2 (22-28) mmol/L ABG O2 Saturation (95-98) % ABG O2 Content (15-23) ML/dL ABG Base Excess (-2.0-3.0) mmol/L ABG Hemoglobin (11.7-17.4) g/dL ABG Carboxyhemoglobin (0.5-1.5) % POC ABG HHb (Measured) (0.0-5.0) % ABG Methemoglobin (0.0-3.0) % ABG O2 Capacity (16-24) mL/dL Tony Test A-a O2 Difference mm/Hg Hgb O2 Saturation (95.0-98.0) % Vent Mode Mechanical Rate FiO2 % Tidal Volume Sodium (132-148) mmol/l Potassium (3.6-5.0) MMOL/L Chloride (98-107) mmol/L Carbon Dioxide (22-30) mmol/L Anion Gap (10-20) BUN (7-17) mg/dl Creatinine (0.7-1.2) mg/dl Est GFR ( Amer) Est GFR (Non-Af Amer) POC Glucose (mg/dL) (65-110) mg/dL Random Glucose (65-105) mg/dL Calcium (8.4-10.2) mg/dL Phosphorus (2.5-4.5) mg/dl Magnesium (1.6-2.3) MG/DL Total Bilirubin (0.2-1.3) mg/dl AST (14-36) U/L ALT (9-52) U/L Alkaline Phosphatase (38-126) U/L Troponin I (0.00-0.120) ng/mL NT-Pro-B Natriuret Pep (0-900) pg/ml Total Protein (6.3-8.2) G/DL Albumin (3.5-5.0) g/dL Globulin (2.2-3.9) gm/dL Albumin/Globulin Ratio (1.0-2.1) Blood Type B POSITIVE Antibody Screen Negative BBK History Checked Patient has bt Laboratory Results - last 24 hr 03/28/18 03/28/18 03/28/18 10:45 12:44 16:09 WBC RBC Hgb Hct MCV MCH MCHC RDW Plt Count MPV Neut % (Auto) Lymph % (Auto) Hyde % (Auto) Eos % (Auto) Baso % (Auto) Neut # (Auto) Lymph # (Auto) Hyde # (Auto) Eos # (Auto) Baso # (Auto) Neutrophils % (Manual) Lymphocytes % (Manual) Monocytes % (Manual) Platelet Estimate Anisocytosis (manual) Tear Drop Cells Ovalocytes Stomatocytes pCO2 47 H pO2 111 H HCO3 22.3 ABG pH 7.30 L ABG Total CO2 24.5 ABG O2 Saturation 98.0 ABG O2 Content 14.0 L ABG Base Excess -3.4 L ABG Hemoglobin 10.3 L ABG Carboxyhemoglobin 1.6 H POC ABG HHb (Measured) 1.9 ABG Methemoglobin 1.2 ABG O2 Capacity 14.3 L Tony Test Yes A-a O2 Difference 543.0 Hgb O2 Saturation 95.3 Vent Mode A/c Mechanical Rate 10 FiO2 100.0 Tidal Volume 500 Sodium Potassium Chloride Carbon Dioxide Anion Gap BUN Creatinine Est GFR ( Amer) Est GFR (Non-Af Amer) POC Glucose (mg/dL) 270 H Random Glucose Calcium Phosphorus Magnesium Total Bilirubin AST ALT Alkaline Phosphatase Troponin I NT-Pro-B Natriuret Pep Total Protein Albumin Globulin Albumin/Globulin Ratio Blood Type B POSITIVE Antibody Screen Negative BBK History Checked Patient has bt 03/28/18 03/28/18 03/28/18 18:19 18:22 19:25 WBC 16.1 H D RBC 3.85 Hgb 10.3 L Hct 31.8 L MCV 82.6 MCH 26.7 L MCHC 32.3 L RDW 16.9 H Plt Count 317 MPV 7.5 Neut % (Auto) 92.3 H Lymph % (Auto) 3.4 L Hyde % (Auto) 3.2 Eos % (Auto) 0.1 Baso % (Auto) 1.0 Neut # (Auto) 14.9 H Lymph # (Auto) 0.5 L Hyde # (Auto) 0.5 Eos # (Auto) 0.0 Baso # (Auto) 0.2 Neutrophils % (Manual) 94 H Lymphocytes % (Manual) 4 L Monocytes % (Manual) 2 Platelet Estimate Normal Anisocytosis (manual) Slight Tear Drop Cells Slight Ovalocytes Slight Stomatocytes Slight pCO2 pO2 HCO3 ABG pH ABG Total CO2 ABG O2 Saturation ABG O2 Content ABG Base Excess ABG Hemoglobin ABG Carboxyhemoglobin POC ABG HHb (Measured) ABG Methemoglobin ABG O2 Capacity Tony Test A-a O2 Difference Hgb O2 Saturation Vent Mode Mechanical Rate FiO2 Tidal Volume Sodium Potassium Chloride Carbon Dioxide Anion Gap BUN Creatinine Est GFR ( Amer) Est GFR (Non-Af Amer) POC Glucose (mg/dL) 403 H* 401 H* Random Glucose Calcium Phosphorus Magnesium Total Bilirubin AST ALT Alkaline Phosphatase Troponin I NT-Pro-B Natriuret Pep Total Protein Albumin Globulin Albumin/Globulin Ratio Blood Type Antibody Screen BBK History Checked 03/28/18 03/28/18 03/29/18 19:25 21:08 00:54 WBC RBC Hgb Hct MCV MCH MCHC RDW Plt Count MPV Neut % (Auto) Lymph % (Auto) Hyde % (Auto) Eos % (Auto) Baso % (Auto) Neut # (Auto) Lymph # (Auto) Hyde # (Auto) Eos # (Auto) Baso # (Auto) Neutrophils % (Manual) Lymphocytes % (Manual) Monocytes % (Manual) Platelet Estimate Anisocytosis (manual) Tear Drop Cells Ovalocytes Stomatocytes pCO2 pO2 HCO3 ABG pH ABG Total CO2 ABG O2 Saturation ABG O2 Content ABG Base Excess ABG Hemoglobin ABG Carboxyhemoglobin POC ABG HHb (Measured) ABG Methemoglobin ABG O2 Capacity Tony Test A-a O2 Difference Hgb O2 Saturation Vent Mode Mechanical Rate FiO2 Tidal Volume Sodium 139 Potassium 4.5 Chloride 102 Carbon Dioxide 28 Anion Gap 14 BUN 31 H Creatinine 1.2 Est GFR ( Amer) 57 Est GFR (Non-Af Amer) 47 POC Glucose (mg/dL) 384 H 351 H Random Glucose 421 H* D Calcium 9.4 Phosphorus 5.3 H Magnesium 1.9 Total Bilirubin 0.6 AST 25 ALT 21 Alkaline Phosphatase 111 Troponin I 0.2510 H* NT-Pro-B Natriuret Pep 2380 H Total Protein 7.2 Albumin 3.7 Globulin 3.5 Albumin/Globulin Ratio 1.0 Blood Type Antibody Screen BBK History Checked 03/29/18 03/29/18 03/29/18 04:19 04:19 05:44 WBC 13.1 H RBC 3.62 L Hgb 9.8 L Hct 30.0 L MCV 82.7 MCH 27.0 MCHC 32.6 L RDW 17.2 H Plt Count 300 MPV Neut % (Auto) Lymph % (Auto) Hyde % (Auto) Eos % (Auto) Baso % (Auto) Neut # (Auto) Lymph # (Auto) Hyde # (Auto) Eos # (Auto) Baso # (Auto) Neutrophils % (Manual) Lymphocytes % (Manual) Monocytes % (Manual) Platelet Estimate Anisocytosis (manual) Tear Drop Cells Ovalocytes Stomatocytes pCO2 pO2 HCO3 ABG pH ABG Total CO2 ABG O2 Saturation ABG O2 Content ABG Base Excess ABG Hemoglobin ABG Carboxyhemoglobin POC ABG HHb (Measured) ABG Methemoglobin ABG O2 Capacity Tony Test A-a O2 Difference Hgb O2 Saturation Vent Mode Mechanical Rate FiO2 Tidal Volume Sodium 140 Potassium 4.4 Chloride 100 Carbon Dioxide 31 H Anion Gap 13 BUN 33 H Creatinine 1.3 H Est GFR ( Amer) 52 Est GFR (Non-Af Amer) 43 POC Glucose (mg/dL) 333 H Random Glucose 390 H Calcium 9.3 Phosphorus Magnesium Total Bilirubin AST ALT Alkaline Phosphatase Troponin I 1.0900 H* NT-Pro-B Natriuret Pep Total Protein Albumin Globulin Albumin/Globulin Ratio Blood Type Antibody Screen BBK History Checked 03/29/18 08:05 WBC RBC Hgb Hct MCV MCH MCHC RDW Plt Count MPV Neut % (Auto) Lymph % (Auto) Hyde % (Auto) Eos % (Auto) Baso % (Auto) Neut # (Auto) Lymph # (Auto) Hyde # (Auto) Eos # (Auto) Baso # (Auto) Neutrophils % (Manual) Lymphocytes % (Manual) Monocytes % (Manual) Platelet Estimate Anisocytosis (manual) Tear Drop Cells Ovalocytes Stomatocytes pCO2 pO2 HCO3 ABG pH ABG Total CO2 ABG O2 Saturation ABG O2 Content ABG Base Excess ABG Hemoglobin ABG Carboxyhemoglobin POC ABG HHb (Measured) ABG Methemoglobin ABG O2 Capacity Tony Test A-a O2 Difference Hgb O2 Saturation Vent Mode Mechanical Rate FiO2 Tidal Volume Sodium Potassium Chloride Carbon Dioxide Anion Gap BUN Creatinine Est GFR ( Amer) Est GFR (Non-Af Amer) POC Glucose (mg/dL) 304 H Random Glucose Calcium Phosphorus Magnesium Total Bilirubin AST ALT Alkaline Phosphatase Troponin I NT-Pro-B Natriuret Pep Total Protein Albumin Globulin Albumin/Globulin Ratio Blood Type Antibody Screen BBK History Checked Fingerstick Blood Sugar Results: 304 Review of Systems - Constitutional Constitutional: absent: Fever, Chills - Cardiovascular Cardiovascular: absent: Chest Pain, Chest Pain at Rest, Chest Pain with Activity , Claudication, Diaphoresis - Respiratory Respiratory: Dyspnea, Dyspnea on Exertion. absent: Cough, Hemoptysis Critical Care Progress Note - Ventilator Checklist Head of Bed 30 Degrees: Yes Daily Sedation Vacation: Yes Daily Assessment of Readiness to Wean: Yes Daily Spontaneous Breathing Trial: Yes PUD Prophalyxis: Yes DVT Prophylaxis: Yes Oral Care with Chlorhexidine Gluconate {CHG}: Yes - Extremities/Vascular Does the Patient have a Central Venous Catheter?: No Does the Patient need a Central Venous Catheter?: No Does the Patient have a Acevedo Catheter?: Yes Does the Patient need a Acevedo Catheter?: Yes - Nutrition Nutrition: Nutrition Category Date Time Status Consistent Carbohydrate [DIET] Diets 03/28/18 Lunch Active Assessment/Plan (1) Acute respiratory failure with hypoxia Current Visit: Yes Status: Acute Priority: High Comment: Sec to acute pulmonary edema, Continue IV diuresis, Last 24H I&O 1050/4800 Aggressive pulmonary toilet, chest PT, suctioning BD nebs q 6h prn (2) Charcot's joint arthropathy in type 2 diabetes mellitus Current Visit: Yes Status: Acute Priority: High Comment: POD #1 S/P Left tendoachilles lengthening, charcot reconstruction with relocation of joint with external fixation Follow up LABS/LYTES/CBC, XR, EKG Perioperative Antibiotics as per podiatry Pain control with fentanyl drip GI/DVT PPX (3) Elevated troponin Current Visit: Yes Status: Acute Priority: High Comment: Trop elevation of 0.2510-1.0900, Pt started on ASA/Plavix , Lovenox, Statins, beta ash and Imdur Cardiolog consult (4) Acute pulmonary edema Current Visit: Yes Status: Acute Priority: High Comment: Continue diuresis to optimize fluid status Last 24H I&O 1050/4800 Lasix 40 mg IVP Strict I&O, daily Wt Trend Trop level and pro-BNP (5) Diabetes mellitus with hyperglycemia Current Visit: Yes Status: Chronic Priority: High Comment: Tight glycemic control, RISS with Coverage Endocrine consult
--- NOTE | 2018-03-29 10:37 | PCM.PROC ---
Procedures Attestation:: I certify that I have explained the specified Operation(s) or Procedure(s), risks, benefits and reasonable alternatives to the Patient and/or other person responsible. The opportunity was given to ask questions and all questions answered - Extubation RSBI Score: 40 Clinical Parameters: Resolution/Stabilization of disease process, Hemodynamically Stable, Intact Cough/Gag Reflex, Spontaneous Respirations, Acceptable Vent Settings (FIO2<50%, PEEP<8, PaO2>75, pH>7.25) Weaning Criteria Met: Yes General Weaning Approaches: Pressure Support Ventilation (PSV) Weaning Patient Condition: Patient has been successfully extubated and assessed Oxygen Therapy: O2 via Venti Mask Patient Tolerated Procedure: Well, No Complications
--- NOTE | 2018-03-29 11:26 | RAD ---
Date of service: 03/29/2018 PROCEDURE: Left Ankle Radiographs. HISTORY: s/p left charcot reconstruction w/ ex fix COMPARISON: None FINDINGS: BONES: External fixator device obscures evaluation of the ankle. No obvious fracture subluxation or dislocation appreciable. No destructive bony lesion identified. JOINTS: Talar dome is intact. The superior lateral ankle mortise appears somewhat widened. Clinically correlate further. SOFT TISSUES: Normal. OTHER FINDINGS: None. IMPRESSION: External fixator device obscures ankle with no acute fracture or dislocation appreciated. Widening of the superolateral ankle mortise is questioned. Clinically correlate.
--- NOTE | 2018-03-29 11:28 | RAD ---
Date of service: 03/28/2018 PROCEDURE: Intraoperative Fluoroscopy. HISTORY: ORIF FINDINGS: Fluoroscopic assistance was provided for Charcot joint repair. Please refer to the operative report from TABBY Jensen. 95.2 seconds of fluoroscopy time was utilized with a total radiation cumulative dose of 1.96 mGy.
--- NOTE | 2018-03-29 12:00 | CP.PCM.CON ---
History of Present Illness - History of Present Illness History of Present Illness: ID Consult Note- ASked to see this patient at the request of for left foot OM . HPI- Patient is a 52 year old female with PMH of DM II, HTN, CAD woth h/o right foot TMA in past and left foot charcot deformity and was admitted on 03/17/2018 for left foot erythema/pain and found to have open plantar wound abou 3 x 2 cm with minimal discharge and had high ESR and was found to have acute OM on the imaging as reported by radiologist and the initial wound cx grew corynabcterium and I had pt. on daptomycin and zosyn for OM treatment pending decision by podiatry in regards to debridement vs amputation. 1 day s/p left foot charcot neuroarthropathy reconstruction with external fixation Pt. is now s/p charcot foot surgery yesterday and is in ICU because she had to be reintubated post surgery secondary to pulmonary edema. She is now extubated and awake . she denies any fever or chills, but has pain in the left foot region. Review of Systems - Review of Systems Review of Systems: ROS- deneis any fever or chills, denies any cough, denies any sob, denies any chest pain, denies any abd. pain, denies any diarrhea or dysurea, has left foot pain Past Patient History - Infectious Disease Hx of Infectious Diseases: None - Tetanus Immunizations Tetanus Immunization: Unknown - Past Medical History & Family History Past Medical History?: Yes - Past Social History Smoking Status: Never Smoked - CARDIAC Hx Cardiac Disorders: Yes (HTN, hyperlipidemia,CAD, coronary stent) Hx Angina: Yes Hx Circulatory Problems: Yes Hx Congestive Heart Failure: Yes Hx Heart Attack: Yes Hx Hypercholesterolemia: Yes Hx Hypertension: Yes Hx Peripheral Edema: Yes Hx Peripheral Vascular Disease: Yes Other/Comment: Hyperlipidemia - PULMONARY Hx Respiratory Disorders: No Hx Chronic Obstructive Pulmonary Disease (COPD): No Hx Tuberculosis: No - NEUROLOGICAL Hx Neurological Disorder: Yes (CVA) HX Cerebrovascular Accident: Yes Hx Seizures: No - HEENT Hx HEENT Problems: No - RENAL Hx Chronic Kidney Disease: No Hx Renal Failure: No - ENDOCRINE/METABOLIC Hx Endocrine Disorders: Yes (DM) Hx Diabetes Mellitus Type 1: Yes Hx Diabetes Mellitus Type 2: Yes Hx Hypothyroidism: No - HEMATOLOGICAL/ONCOLOGICAL Hx Anemia: Yes Hx Blood Transfusions: Yes Hx Blood Transfusion Reaction: Yes - INTEGUMENTARY Hx Dermatological Problems: Yes Hx Cellulitis: Yes (ble) Other/Comment: Gangrene right 2nd toe - MUSCULOSKELETAL/RHEUMATOLOGICAL Hx Musculoskeletal Disorders: Yes (arthritis, back problems, hernated discs) Hx Arthritis: Yes Hx Back Pain: Yes Hx Degenerative Joint Disease: Yes Hx Falls: No Hx Herniated Disk: Yes Hx Osteomyelitis: Yes Hx Rheumatoid Arthritis: No Other/Comment: L charcot foot - GASTROINTESTINAL Hx Gastrointestinal Disorders: Yes - GENITOURINARY/GYNECOLOGICAL Hx Genitourinary Disorders: No Hx Sexually Transmitted Disorders: No Other/Comment: c section,ovarian cystectomy - PSYCHIATRIC Hx Psychophysiologic Disorder: Yes (anxiety, depression) Hx Anxiety: Yes Hx Depression: Yes Hx Emotional Abuse: No Hx Panic Symptoms: Yes Hx Physical Abuse: No Hx Substance Use: No - SURGICAL HISTORY Hx Surgeries: Yes Hx Amputation: Yes (right toes 2 years ago) Hx Appendectomy: Yes Hx Cardiac Catheterization: Yes (x1 stent) Hx Section: Yes (1996) Hx Coronary Stent: Yes Hx Orthopedic Surgery: Yes (Amputation toes right foot, 2 years ago) Hx Vascular Surgery: Yes (INSERTION OF STENT ON THE RIGHT LEG) Other/Comment: surgery L arm for compartmental syndrome. multiple foot surgeries. removal of ovaries - ANESTHESIA Hx Anesthesia: Yes Hx Anesthesia Reactions: Yes (CAN'T BREATH-ADMITTED TO ICU) Hx Malignant Hyperthermia: No Meds Allergies/Adverse Reactions: Allergies Allergy/AdvReac Type Severity Reaction Status Date / Time No Known Allergies Allergy Verified 03/17/18 04:21 - Medications Medications: Current Medications Acetaminophen (Tylenol 325mg Tab) 650 mg PO Q4 PRN PRN Reason: Pain, Mild (1-3) Albuterol/Ipratropium (Duoneb 3 Mg/0.5 Mg (3 Ml) Ud) 3 ml INH RQ6 PRN PRN Reason: Shortness of Breath Alprazolam (Xanax) 0.25 mg PO Q12 [facility] Stop: 04/05/18 10:16 Aspirin (Aspirin Chewable) 81 mg PO DAILY [facility] Last Admin: 03/29/18 11:46 Dose: 81 mg Atorvastatin Calcium (Lipitor) 40 mg PO HS [facility] Clopidogrel Bisulfate (Plavix) 75 mg PO DAILY [facility] Last Admin: 03/29/18 11:45 Dose: 75 mg Enalapril Maleate (Vasotec) 10 mg PO BID [facility] Enoxaparin Sodium (Lovenox) 100 mg SC Q12 [facility] PRN Reason: Protocol Hydromorphone HCl (Dilaudid) 1 mg IVP Q4 PRN PRN Reason: Pain, moderate (4-7) Last Admin: 03/29/18 11:46 Dose: 1 mg Fentanyl Citrate 2,500 mcg/ (Dextrose) 250 mls @ 9.75 mls/hr IV .Q24H [facility]; 1 MCG/KG/HR PRN Reason: Protocol Last Admin: 03/29/18 07:05 Dose: 5 mcg/kg/hr, 48.76 mls/hr Insulin Detemir (Levemir) 70 units SC HS [facility] Insulin Human Lispro (Humalog) 28 units SC AC [facility] Insulin Human Regular (Humulin R) 0 units SC Q4 [facility] PRN Reason: Protocol Last Admin: 03/29/18 09:08 Dose: 6 units Isosorbide Mononitrate (Imdur) 60 mg PO DAILY [facility] Metoprolol Succinate (Toprol Xl) 200 mg PO Q12 [facility] Oxycodone/Acetaminophen (Percocet 5/325 Mg Tab) 1 tab PO Q4 PRN PRN Reason: Pain, moderate (4-7) Stop: 03/31/18 12:36 Oxycodone/Acetaminophen (Percocet 5/325 Mg Tab) 2 tab PO Q4 PRN PRN Reason: Pain, severe (8-10) Stop: 03/31/18 12:36 Pantoprazole Sodium (Protonix Inj) 40 mg IVP DAILY [facility] Last Admin: 03/29/18 09:05 Dose: 40 mg Physical Exam - Constitutional Appears: No Acute Distress - Head Exam Head Exam: ATRAUMATIC - Eye Exam Eye Exam: EOMI - ENT Exam ENT Exam: Normal Oropharynx - Neck Exam Neck exam: Positive for: Full Rom - Respiratory Exam Additional comments: breath sounds heard B/L no wheezing - Cardiovascular Exam Cardiovascular Exam: RRR, +S1, +S2 - GI/Abdominal Exam GI & Abdominal Exam: Normal Bowel Sounds, Soft Additional comments: NT, ND - Extremities Exam Additional comments: right foot TMA ( old) left foot in post surgical dressing and external fixation in place - Neurological Exam Neurological exam: Alert, Oriented x3 Results - Vital Signs Recent Vital Signs: Last Vital Signs Temp 98.7 F 03/29/18 08:00 Pulse 99 H 03/29/18 10:39 Resp 14 03/29/18 10:00 BP 155/77 H 03/29/18 10:39 Pulse Ox 100 03/29/18 10:00 - Labs Result Diagrams: 03/29/18 04:19 03/29/18 04:19 Labs: Laboratory Results - last 24 hr 03/28/18 03/28/18 03/28/18 10:45 12:44 16:09 WBC RBC Hgb Hct MCV MCH MCHC RDW Plt Count MPV Neut % (Auto) Lymph % (Auto) [place] % (Auto) Eos % (Auto) Baso % (Auto) Neut # (Auto) Lymph # (Auto) [place] # (Auto) Eos # (Auto) Baso # (Auto) Neutrophils % (Manual) Lymphocytes % (Manual) Monocytes % (Manual) Platelet Estimate Anisocytosis (manual) Tear Drop Cells Ovalocytes Stomatocytes pCO2 47 H pO2 111 H HCO3 22.3 ABG pH 7.30 L ABG Total CO2 24.5 ABG O2 Saturation 98.0 ABG O2 Content 14.0 L ABG Base Excess -3.4 L ABG Hemoglobin 10.3 L ABG Carboxyhemoglobin 1.6 H POC ABG HHb (Measured) 1.9 ABG Methemoglobin 1.2 ABG O2 Capacity 14.3 L Tony Test Yes A-a O2 Difference 543.0 Hgb O2 Saturation 95.3 Vent Mode A/c Mechanical Rate 10 FiO2 100.0 Tidal Volume 500 Sodium Potassium Chloride Carbon Dioxide Anion Gap BUN Creatinine Est GFR ( Amer) Est GFR (Non-Af Amer) POC Glucose (mg/dL) 270 H Random Glucose Calcium Phosphorus Magnesium Total Bilirubin AST ALT Alkaline Phosphatase Troponin I NT-Pro-B Natriuret Pep Total Protein Albumin Globulin Albumin/Globulin Ratio BBK History Checked Patient has bt 03/28/18 03/28/18 03/28/18 18:19 18:22 19:25 WBC 16.1 H D RBC 3.85 Hgb 10.3 L Hct 31.8 L MCV 82.6 MCH 26.7 L MCHC 32.3 L RDW 16.9 H Plt Count 317 MPV 7.5 Neut % (Auto) 92.3 H Lymph % (Auto) 3.4 L [place] % (Auto) 3.2 Eos % (Auto) 0.1 Baso % (Auto) 1.0 Neut # (Auto) 14.9 H Lymph # (Auto) 0.5 L [place] # (Auto) 0.5 Eos # (Auto) 0.0 Baso # (Auto) 0.2 Neutrophils % (Manual) 94 H Lymphocytes % (Manual) 4 L Monocytes % (Manual) 2 Platelet Estimate Normal Anisocytosis (manual) Slight Tear Drop Cells Slight Ovalocytes Slight Stomatocytes Slight pCO2 pO2 HCO3 ABG pH ABG Total CO2 ABG O2 Saturation ABG O2 Content ABG Base Excess ABG Hemoglobin ABG Carboxyhemoglobin POC ABG HHb (Measured) ABG Methemoglobin ABG O2 Capacity Tony Test A-a O2 Difference Hgb O2 Saturation Vent Mode Mechanical Rate FiO2 Tidal Volume Sodium Potassium Chloride Carbon Dioxide Anion Gap BUN Creatinine Est GFR ( Amer) Est GFR (Non-Af Amer) POC Glucose (mg/dL) 403 H* 401 H* Random Glucose Calcium Phosphorus Magnesium Total Bilirubin AST ALT Alkaline Phosphatase Troponin I NT-Pro-B Natriuret Pep Total Protein Albumin Globulin Albumin/Globulin Ratio BBK History Checked 03/28/18 03/28/18 03/29/18 19:25 21:08 00:54 WBC RBC Hgb Hct MCV MCH MCHC RDW Plt Count MPV Neut % (Auto) Lymph % (Auto) [place] % (Auto) Eos % (Auto) Baso % (Auto) Neut # (Auto) Lymph # (Auto) [place] # (Auto) Eos # (Auto) Baso # (Auto) Neutrophils % (Manual) Lymphocytes % (Manual) Monocytes % (Manual) Platelet Estimate Anisocytosis (manual) Tear Drop Cells Ovalocytes Stomatocytes pCO2 pO2 HCO3 ABG pH ABG Total CO2 ABG O2 Saturation ABG O2 Content ABG Base Excess ABG Hemoglobin ABG Carboxyhemoglobin POC ABG HHb (Measured) ABG Methemoglobin ABG O2 Capacity Tony Test A-a O2 Difference Hgb O2 Saturation Vent Mode Mechanical Rate FiO2 Tidal Volume Sodium 139 Potassium 4.5 Chloride 102 Carbon Dioxide 28 Anion Gap 14 BUN 31 H Creatinine 1.2 Est GFR ( Amer) 57 Est GFR (Non-Af Amer) 47 POC Glucose (mg/dL) 384 H 351 H Random Glucose 421 H* D Calcium 9.4 Phosphorus 5.3 H Magnesium 1.9 Total Bilirubin 0.6 AST 25 ALT 21 Alkaline Phosphatase 111 Troponin I 0.2510 H* NT-Pro-B Natriuret Pep 2380 H Total Protein 7.2 Albumin 3.7 Globulin 3.5 Albumin/Globulin Ratio 1.0 BBK History Checked 03/29/18 03/29/18 03/29/18 04:19 04:19 05:44 WBC 13.1 H RBC 3.62 L Hgb 9.8 L Hct 30.0 L MCV 82.7 MCH 27.0 MCHC 32.6 L RDW 17.2 H Plt Count 300 MPV Neut % (Auto) Lymph % (Auto) [place] % (Auto) Eos % (Auto) Baso % (Auto) Neut # (Auto) Lymph # (Auto) [place] # (Auto) Eos # (Auto) Baso # (Auto) Neutrophils % (Manual) Lymphocytes % (Manual) Monocytes % (Manual) Platelet Estimate Anisocytosis (manual) Tear Drop Cells Ovalocytes Stomatocytes pCO2 pO2 HCO3 ABG pH ABG Total CO2 ABG O2 Saturation ABG O2 Content ABG Base Excess ABG Hemoglobin ABG Carboxyhemoglobin POC ABG HHb (Measured) ABG Methemoglobin ABG O2 Capacity Tony Test A-a O2 Difference Hgb O2 Saturation Vent Mode Mechanical Rate FiO2 Tidal Volume Sodium 140 Potassium 4.4 Chloride 100 Carbon Dioxide 31 H Anion Gap 13 BUN 33 H Creatinine 1.3 H Est GFR ( Amer) 52 Est GFR (Non-Af Amer) 43 POC Glucose (mg/dL) 333 H Random Glucose 390 H Calcium 9.3 Phosphorus Magnesium Total Bilirubin AST ALT Alkaline Phosphatase Troponin I 1.0900 H* NT-Pro-B Natriuret Pep Total Protein Albumin Globulin Albumin/Globulin Ratio BBK History Checked 03/29/18 03/29/18 08:05 11:13 WBC RBC Hgb Hct MCV MCH MCHC RDW Plt Count MPV Neut % (Auto) Lymph % (Auto) [place] % (Auto) Eos % (Auto) Baso % (Auto) Neut # (Auto) Lymph # (Auto) [place] # (Auto) Eos # (Auto) Baso # (Auto) Neutrophils % (Manual) Lymphocytes % (Manual) Monocytes % (Manual) Platelet Estimate Anisocytosis (manual) Tear Drop Cells Ovalocytes Stomatocytes pCO2 pO2 HCO3 ABG pH ABG Total CO2 ABG O2 Saturation ABG O2 Content ABG Base Excess ABG Hemoglobin ABG Carboxyhemoglobin POC ABG HHb (Measured) ABG Methemoglobin ABG O2 Capacity Tony Test A-a O2 Difference Hgb O2 Saturation Vent Mode Mechanical Rate FiO2 Tidal Volume Sodium Potassium Chloride Carbon Dioxide Anion Gap BUN Creatinine Est GFR ( Amer) Est GFR (Non-Af Amer) POC Glucose (mg/dL) 304 H 332 H Random Glucose Calcium Phosphorus Magnesium Total Bilirubin AST ALT Alkaline Phosphatase Troponin I NT-Pro-B Natriuret Pep Total Protein Albumin Globulin Albumin/Globulin Ratio BBK History Checked Laboratory Results - last 72 hr 03/28/18 03/28/18 03/28/18 10:45 12:44 16:09 WBC RBC Hgb Hct MCV MCH MCHC RDW Plt Count MPV Neut % (Auto) Lymph % (Auto) [place] % (Auto) Eos % (Auto) Baso % (Auto) Neut # (Auto) Lymph # (Auto) [place] # (Auto) Eos # (Auto) Baso # (Auto) Neutrophils % (Manual) Lymphocytes % (Manual) Monocytes % (Manual) Platelet Estimate Anisocytosis (manual) Tear Drop Cells Ovalocytes Stomatocytes pCO2 47 H pO2 111 H HCO3 22.3 ABG pH 7.30 L ABG Total CO2 24.5 ABG O2 Saturation 98.0 ABG O2 Content 14.0 L ABG Base Excess -3.4 L ABG Hemoglobin 10.3 L ABG Carboxyhemoglobin 1.6 H POC ABG HHb (Measured) 1.9 ABG Methemoglobin 1.2 ABG O2 Capacity 14.3 L Tony Test Yes A-a O2 Difference 543.0 Hgb O2 Saturation 95.3 Vent Mode A/c Mechanical Rate 10 FiO2 100.0 Tidal Volume 500 Sodium Potassium Chloride Carbon Dioxide Anion Gap BUN Creatinine Est GFR ( Amer) Est GFR (Non-Af Amer) POC Glucose (mg/dL) 270 H Random Glucose Calcium Phosphorus Magnesium Total Bilirubin AST ALT Alkaline Phosphatase Troponin I NT-Pro-B Natriuret Pep Total Protein Albumin Globulin Albumin/Globulin Ratio Blood Type B POSITIVE Antibody Screen Negative BBK History Checked Patient has bt 03/28/18 03/28/18 03/28/18 18:19 18:22 19:25 WBC 16.1 H D RBC 3.85 Hgb 10.3 L Hct 31.8 L MCV 82.6 MCH 26.7 L MCHC 32.3 L RDW 16.9 H Plt Count 317 MPV 7.5 Neut % (Auto) 92.3 H Lymph % (Auto) 3.4 L [place] % (Auto) 3.2 Eos % (Auto) 0.1 Baso % (Auto) 1.0 Neut # (Auto) 14.9 H Lymph # (Auto) 0.5 L [place] # (Auto) 0.5 Eos # (Auto) 0.0 Baso # (Auto) 0.2 Neutrophils % (Manual) 94 H Lymphocytes % (Manual) 4 L Monocytes % (Manual) 2 Platelet Estimate Normal Anisocytosis (manual) Slight Tear Drop Cells Slight Ovalocytes Slight Stomatocytes Slight pCO2 pO2 HCO3 ABG pH ABG Total CO2 ABG O2 Saturation ABG O2 Content ABG Base Excess ABG Hemoglobin ABG Carboxyhemoglobin POC ABG HHb (Measured) ABG Methemoglobin ABG O2 Capacity Tony Test A-a O2 Difference Hgb O2 Saturation Vent Mode Mechanical Rate FiO2 Tidal Volume Sodium Potassium Chloride Carbon Dioxide Anion Gap BUN Creatinine Est GFR ( Amer) Est GFR (Non-Af Amer) POC Glucose (mg/dL) 403 H* 401 H* Random Glucose Calcium Phosphorus Magnesium Total Bilirubin AST ALT Alkaline Phosphatase Troponin I NT-Pro-B Natriuret Pep Total Protein Albumin Globulin Albumin/Globulin Ratio Blood Type Antibody Screen BBK History Checked 03/28/18 03/28/18 03/29/18 19:25 21:08 00:54 WBC RBC Hgb Hct MCV MCH MCHC RDW Plt Count MPV Neut % (Auto) Lymph % (Auto) [place] % (Auto) Eos % (Auto) Baso % (Auto) Neut # (Auto) Lymph # (Auto) [place] # (Auto) Eos # (Auto) Baso # (Auto) Neutrophils % (Manual) Lymphocytes % (Manual) Monocytes % (Manual) Platelet Estimate Anisocytosis (manual) Tear Drop Cells Ovalocytes Stomatocytes pCO2 pO2 HCO3 ABG pH ABG Total CO2 ABG O2 Saturation ABG O2 Content ABG Base Excess ABG Hemoglobin ABG Carboxyhemoglobin POC ABG HHb (Measured) ABG Methemoglobin ABG O2 Capacity Tony Test A-a O2 Difference Hgb O2 Saturation Vent Mode Mechanical Rate FiO2 Tidal Volume Sodium 139 Potassium 4.5 Chloride 102 Carbon Dioxide 28 Anion Gap 14 BUN 31 H Creatinine 1.2 Est GFR ( Amer) 57 Est GFR (Non-Af Amer) 47 POC Glucose (mg/dL) 384 H 351 H Random Glucose 421 H* D Calcium 9.4 Phosphorus 5.3 H Magnesium 1.9 Total Bilirubin 0.6 AST 25 ALT 21 Alkaline Phosphatase 111 Troponin I 0.2510 H* NT-Pro-B Natriuret Pep 2380 H Total Protein 7.2 Albumin 3.7 Globulin 3.5 Albumin/Globulin Ratio 1.0 Blood Type Antibody Screen BBK History Checked 03/29/18 03/29/18 03/29/18 04:19 04:19 05:44 WBC 13.1 H RBC 3.62 L Hgb 9.8 L Hct 30.0 L MCV 82.7 MCH 27.0 MCHC 32.6 L RDW 17.2 H Plt Count 300 MPV Neut % (Auto) Lymph % (Auto) [place] % (Auto) Eos % (Auto) Baso % (Auto) Neut # (Auto) Lymph # (Auto) [place] # (Auto) Eos # (Auto) Baso # (Auto) Neutrophils % (Manual) Lymphocytes % (Manual) Monocytes % (Manual) Platelet Estimate Anisocytosis (manual) Tear Drop Cells Ovalocytes Stomatocytes pCO2 pO2 HCO3 ABG pH ABG Total CO2 ABG O2 Saturation ABG O2 Content ABG Base Excess ABG Hemoglobin ABG Carboxyhemoglobin POC ABG HHb (Measured) ABG Methemoglobin ABG O2 Capacity Tony Test A-a O2 Difference Hgb O2 Saturation Vent Mode Mechanical Rate FiO2 Tidal Volume Sodium 140 Potassium 4.4 Chloride 100 Carbon Dioxide 31 H Anion Gap 13 BUN 33 H Creatinine 1.3 H Est GFR ( Amer) 52 Est GFR (Non-Af Amer) 43 POC Glucose (mg/dL) 333 H Random Glucose 390 H Calcium 9.3 Phosphorus Magnesium Total Bilirubin AST ALT Alkaline Phosphatase Troponin I 1.0900 H* NT-Pro-B Natriuret Pep Total Protein Albumin Globulin Albumin/Globulin Ratio Blood Type Antibody Screen BBK History Checked 03/29/18 03/29/18 03/29/18 08:05 11:13 13:00 WBC RBC Hgb Hct MCV MCH MCHC RDW Plt Count MPV Neut % (Auto) Lymph % (Auto) [place] % (Auto) Eos % (Auto) Baso % (Auto) Neut # (Auto) Lymph # (Auto) [place] # (Auto) Eos # (Auto) Baso # (Auto) Neutrophils % (Manual) Lymphocytes % (Manual) Monocytes % (Manual) Platelet Estimate Anisocytosis (manual) Tear Drop Cells Ovalocytes Stomatocytes pCO2 pO2 HCO3 ABG pH ABG Total CO2 ABG O2 Saturation ABG O2 Content ABG Base Excess ABG Hemoglobin ABG Carboxyhemoglobin POC ABG HHb (Measured) ABG Methemoglobin ABG O2 Capacity Tony Test A-a O2 Difference Hgb O2 Saturation Vent Mode Mechanical Rate FiO2 Tidal Volume Sodium Potassium Chloride Carbon Dioxide Anion Gap BUN Creatinine Est GFR ( Amer) Est GFR (Non-Af Amer) POC Glucose (mg/dL) 304 H 332 H Random Glucose Calcium Phosphorus Magnesium Total Bilirubin AST ALT Alkaline Phosphatase Troponin I 0.3740 H* NT-Pro-B Natriuret Pep Total Protein Albumin Globulin Albumin/Globulin Ratio Blood Type Antibody Screen BBK History Checked 03/29/18 03/29/18 14:05 16:00 WBC RBC Hgb Hct MCV MCH MCHC RDW Plt Count MPV Neut % (Auto) Lymph % (Auto) [place] % (Auto) Eos % (Auto) Baso % (Auto) Neut # (Auto) Lymph # (Auto) [place] # (Auto) Eos # (Auto) Baso # (Auto) Neutrophils % (Manual) Lymphocytes % (Manual) Monocytes % (Manual) Platelet Estimate Anisocytosis (manual) Tear Drop Cells Ovalocytes Stomatocytes pCO2 pO2 HCO3 ABG pH ABG Total CO2 ABG O2 Saturation ABG O2 Content ABG Base Excess ABG Hemoglobin ABG Carboxyhemoglobin POC ABG HHb (Measured) ABG Methemoglobin ABG O2 Capacity Tony Test A-a O2 Difference Hgb O2 Saturation Vent Mode Mechanical Rate FiO2 Tidal Volume Sodium Potassium Chloride Carbon Dioxide Anion Gap BUN Creatinine Est GFR ( Amer) Est GFR (Non-Af Amer) POC Glucose (mg/dL) 375 H 321 H Random Glucose Calcium Phosphorus Magnesium Total Bilirubin AST ALT Alkaline Phosphatase Troponin I NT-Pro-B Natriuret Pep Total Protein Albumin Globulin Albumin/Globulin Ratio Blood Type Antibody Screen BBK History Checked Microbiology 03/17/18 05:30 Urine Urine Culture - Final No Growth (<1,000 CFU/ML) 03/17/18 00:08 Foot - Left Gram Stain - Final 03/17/18 00:08 Foot - Left Wound Culture - Final Corynebacterium Species 03/17/18 00:05 Blood Blood Culture - Final 03/17/18 00:05 Blood Gram Stain - Final NO GROWTH AFTER 5 DAYS TEST NOT PERFORMED 03/16/18 00:25 Blood Blood Culture - Final 03/16/18 00:25 Blood Gram Stain - Final NO GROWTH AFTER 5 DAYS TEST NOT PERFORMED Assessment & Plan (1) Acute pulmonary edema Status: Acute Priority: High (2) Diabetes mellitus with hyperglycemia Status: Chronic Priority: High (3) Charcot's joint arthropathy in type 2 diabetes mellitus Status: Acute Priority: High (4) Diabetic foot ulcer Status: Acute - Assessment and Plan (Free Text) Assessment: A/P- 52 year old female with CAD, HTN, DM II was originally admitted with left plantar foot open wound and surrounding erythema . s/p left charcot foot surgery with external fixation POD #1 afebrile minimal leukocytosis .. blood cx- neg x 2 foot wound cx- corynebacterium CT report- ? acute or chronic Om as per report High ESR plan- advise to continue with renal dose zosyn. day #12 continue with dqaptomycin for cellulitis /om of left plantar foot day #8. spoke with podiatry adn asked if they are planning on removing or debriding the necrotic bone as the length of abx will depend on this. as per ortho pt. will go for econ charcot surgery ( second part) , await responsse regarding whether necrotic bone would be debrided or not. check CPK while on dapto. Thank you for allowing me to take part in the care of this patient. All above d/w patient and she verbalizes full understanding of all above. ICU time 50 min.
[2018-03-29] MEDS ORDERED: DAPTOmycin 500 mg Inj (Cubicin) IV SCH (12:15)
[2018-03-29] MEDS ORDERED: Povidone Iodine Topical 10% Sol ONE (13:52)
[2018-03-29] MEDS: Insulin Lispro (humaLOG) 100 Units/ml Inj SC SCH ×4 (14:03→21:12)
--- NOTE | 2018-03-29 15:26 | CP.PCM.PN ---
Subjective - Date & Time of Evaluation Date of Evaluation: 03/29/18 Time of Evaluation: 15:24 - Subjective Subjective: Podiatry progress note for Dr. Macdonald: 51 yo female seen and evaluated 1 day s/p left foot charcot neuroarthropathy reconstruction with external fixation. Patient is AAOx3 and NAD. She states that she is in a lot of pain in her foot. She was intubated after her surgery as she was in respiratory distress and was then extubated this morning. She has had recent bouts of vomiting. She denies F/C/CP today. Objective - Vital Signs/Intake and Output Vital Signs (last 24 hours): Temp Pulse Resp BP Pulse Ox 99.1 F 107 H 23 156/73 H 92 L 03/29/18 12:00 03/29/18 14:00 03/29/18 14:00 03/29/18 14:00 03/29/18 14:00 Intake and Output: 03/29/18 03/29/18 06:59 18:59 Intake Total 350 250 Output Total 2200 1800 Balance -1850 -1550 - Medications Medications: Current Medications Acetaminophen (Tylenol 325mg Tab) 650 mg PO Q4 PRN PRN Reason: Pain, Mild (1-3) Albuterol/Ipratropium (Duoneb 3 Mg/0.5 Mg (3 Ml) Ud) 3 ml INH RQ6 PRN PRN Reason: Shortness of Breath Alprazolam (Xanax) 0.25 mg PO Q12 [facility] Stop: 04/05/18 10:16 Aspirin (Aspirin Chewable) 81 mg PO DAILY [facility] Last Admin: 03/29/18 11:46 Dose: 81 mg Atorvastatin Calcium (Lipitor) 40 mg PO HS [facility] Clopidogrel Bisulfate (Plavix) 75 mg PO DAILY [facility] Last Admin: 03/29/18 11:45 Dose: 75 mg Enalapril Maleate (Vasotec) 10 mg PO BID [facility] Enoxaparin Sodium (Lovenox) 100 mg SC Q12 [facility] PRN Reason: Protocol Hydromorphone HCl (Dilaudid) 1 mg IVP Q4 PRN PRN Reason: Pain, moderate (4-7) Last Admin: 03/29/18 11:46 Dose: 1 mg Fentanyl Citrate 2,500 mcg/ (Dextrose) 250 mls @ 9.75 mls/hr IV .Q24H [facility]; 1 MCG/KG/HR PRN Reason: Protocol Last Admin: 03/29/18 07:05 Dose: 5 mcg/kg/hr, 48.76 mls/hr Daptomycin 390 mg/ Sodium (Chloride) 100 mls @ 100 mls/hr IV Q24H [facility] Stop: 04/03/18 12:16 Piperacillin Sod/Tazobactam (Sod 2.25 gm/ Sodium Chloride) 100 mls @ 100 mls/ hr IVPB Q8 [facility] PRN Reason: Protocol Last Admin: 03/29/18 13:36 Dose: 100 mls/hr Insulin Detemir (Levemir) 70 units SC HS [facility] Insulin Human Lispro (Humalog) 28 units SC AC [facility] Last Admin: 03/29/18 14:03 Dose: 28 u Insulin Human Regular (Humulin R) 0 units SC Q4 [facility] PRN Reason: Protocol Last Admin: 03/29/18 09:08 Dose: 6 units Isosorbide Mononitrate (Imdur) 60 mg PO DAILY [facility] Last Admin: 03/29/18 14:37 Dose: 60 mg Metoprolol Succinate (Toprol Xl) 200 mg PO Q12 [facility] Ondansetron HCl (Zofran Inj) 4 mg IVP Q4 PRN PRN Reason: Nausea/Vomiting Last Admin: 03/29/18 14:00 Dose: 4 mg Oxycodone/Acetaminophen (Percocet 5/325 Mg Tab) 1 tab PO Q4 PRN PRN Reason: Pain, moderate (4-7) Stop: 03/31/18 12:36 Oxycodone/Acetaminophen (Percocet 5/325 Mg Tab) 2 tab PO Q4 PRN PRN Reason: Pain, severe (8-10) Stop: 03/31/18 12:36 Pantoprazole Sodium (Protonix Inj) 40 mg IVP DAILY [facility] Last Admin: 03/29/18 09:05 Dose: 40 mg - Labs Labs: 03/29/18 04:19 03/29/18 04:19 - Constitutional Appears: Well, Non-toxic, No Acute Distress - Head Exam Head Exam: ATRAUMATIC, NORMOCEPHALIC - Extremities Exam Additional comments: Vasc: DP and PT pulses palpable 1/4 on the right but not assessed due to obstruction from external fixation device on her left foot, cap refill on left foot <3 to all digits, mild edema present about the surgery sites with pin placement Derm: there is minimal blood and drainage from pin insertion sites on the left foot and lower leg; mild erythema present; no pus or streaking or malodor present, no clinical signs of infection; mild evidence of dried blood on the pin insertion sites Ortho: pain on palpation about the left lower leg and surgery sites; external fixation limits any motion at the left lower extremity Neuro: protective sensation absent bilaterally - Neurological Exam Neurological Exam: Alert, Awake, Oriented x3 - Psychiatric Exam Psychiatric exam: Normal Affect, Normal Mood Assessment and Plan - Assessment and Plan (Free Text) Assessment: 52 yo patient seen at bedside 1 day s/p left foot charcot neuroarthropathy reconstruction using external fixation device Plan: Patient seen and evaluated Discussed in detail with Dr. Macdonald Patients dressings removed and pin sites cleaned thoroughly with saline Redressed patient with xeroform at the pin sites and DSD about the rest of the lower leg, HELGA applied to cover the external fixation Left ankle and foot x-rays taken: external fixator device obscures ankle with no actue fracture or dislocation appreciated, widening of th superolateral ankle mortise question, clinically correlate Patients family present today, all demonstrated awareness of staged procedure for charcot reconstruction and further surgery in about one week assuming health of patient is stable Monitor blood glucose level, last measurement 375 Continue to follow ID recs on antibiotics - daptomycin, zosyn Podiatry will continue to monitor patient while in house
[2018-03-29] MEDS: Oxycodone/Acetaminophen 5/325 mg Tab PO PRN ×2 (19:18→23:57)
--- NOTE | 2018-03-29 19:49 | CP.PCM.CON ---
History of Present Illness - History of Present Illness History of Present Illness: I was asked to evaluate patient by Dr Malagon. Patient is a 52 year old female with PMH HTN, CAD, PAD who is s/p L foot surgery for a Charcot deformity. Patient underwent successful surgery, requried reintubation due to flash pulmonary edema. Troponin was elevated at 1. The patient ius currently extubated. She denies chest pain, but has L foot pain. Review of Systems - Constitutional Constitutional: absent: As Per HPI, Anorexia, Chills, Daytime Sleepiness, Excessive Sweating, Fatigue, Fever, Frequent Falls, Headache, Increased Appetite , Lethargy, Malaise, Night Sweats, Snoring, Sleep Apnea, Weight Gain, Weight Loss, Weakness, Other - EENT Eyes: absent: As Per HPI, Blind Spots, Blurred Vision, Change in Vision, Decreased Night Vision, Diplopia, Discharge, Dry Eye, Exophthalmos, Floaters, Irritation, Itchy Eyes, Loss of Peripheral Vision, Pain, Photophobia, Requires Corrective Lenses, Sees Flashes, Spots in Vision, Tunnel Vision, Other Visual Disturbances, Loss of Vision, Other Ears: absent: As Per HPI, Decreased Hearing, Ear Discharge, Ear Pain, Tinnitus, Abnormal Hearing, Disequilibrium, Dizziness, Other Nose/Mouth/Throat: absent: As Per HPI, Epistaxis, Nasal Congestion, Nasal Discharge, Nasal Obstruction, Nasal Trauma, Nose Pain, Post Nasal Drip, Sinus Pain, Sinus Pressure, Bleeding Gums, Change in Voice, Dental Pain, Dry Mouth, Dysphagia, Halitosis, Hoarsness, Lip Swelling, Mouth Lesions, Mouth Pain, Odynophagia, Sore Throat, Throat Swelling, Tongue Swelling, Facial Pain, Neck Pain, Neck Mass, Other - Cardiovascular Cardiovascular: absent: As Per HPI, Acrocyanosis, Chest Pain, Chest Pain at Rest , Chest Pain with Activity, Claudication, Diaphoresis, Dyspnea, Dyspnea on Exertion, Edema, Irregular Heart Rhythm, Pain Radiating to Arm/Neck/Jaw, Leg Edema, Leg Ulcers, Lightheadedness, Orthopnea, Palpitations, Paroxysmal Nocturnal Dyspnea, Pedal Edema, Radiating Pain, Rapid Heart Rate, Slow Heart Rate, Syncope, Other - Gastrointestinal Gastrointestinal: absent: As Per HPI, Abdominal Pain, Belching, Bloating, Change in Bowel Habits, Change in Stool Character, Coffee Ground Emesis, Constipation, Cramping, Diarrhea, Dyspepsia, Dysphagia, Early Satiety, Excessive Flatus, Fecal Incontinence, Heartburn, Hematemesis, Hematochezia, Loose Stools, Melena, Nausea, Odynophagia, Temesmus, Vomiting, Other - Genitourinary Genitourinary: absent: As Per HPI, Change in Urinary Stream, Difficulty Urinating, Dysuria, Flank Pain, Hematuria, Pyuria, Nocturia, Urinary Incontinence, Urinary Frequency, Urinary Hesitance, Urinary Urgency, Voiding Freq/Small Amts, Freq UTI, Hx Renal/Bladder Calculi, Hx /Renal Surgery, Bladder Distension, Other - Musculoskeletal Musculoskeletal: Radiating Pain into Limb - Integumentary Integumentary: absent: As Per HPI, Acne, Alopecia, Bleeding Lesions, Change in Hair, Change in Nails, Change in Pigmentation, Changing Lesions, Dry Skin, Erythema, Furuncle, Hirsutism, Lesions, New Lesions, Non-Healing Lesions, Photosensitivity, Pruritus, Rash, Skin Pain, Skin Ulcer, Sores, Striae, Swelling , Unusual Bruising, Wounds, Jaundice, Other - Neurological Neurological: absent: As Per HPI, Abnormal Gait, Abnormal Hearing, Abnormal Movements, Abnormal Speech, Behavioral Changes, Burning Sensations, Confusion, Convulsions, Disequilibrium, Dizziness, Numbness, Focal Weakness, Frequent Falls , Headaches, Lack of Coordination, Loss of Vision, Memory Loss, Paresthesias, Radicular Pain, Restless Legs, Sensory Deficit, Syncope, Tingling, Tremor, Vertigo, Weakness, Other Visual Disturbances, Other - Psychiatric Psychiatric: absent: As Per HPI, Abnormal Sleep Pattern, Anhedonia, Anxiety, Auditory Hallucinations, Behavioral Changes, Change in Appetite, Change in Libido, Confusion, Depression, Difficulty Concentrating, Hallucinations, Homicidal Ideation, Hopelessness, Irritability, Memory Loss, Mood Swings, Panic Attacks, Paranoia, Suicidal Ideation, Visual Hallucinations, Tactile Hallucinations, Other - Endocrine Endocrine: absent: As Per HPI, Change in Body Appearance, Change in Libido, Cold Intolorance, Deepening of Voice, Excessive Sweating, Fatigue, Flushing, Heat Intolorance, Increase in Ring/Shoe/Hat Size, Palpitations, Polydipsia, Polyphagia, Polyuria, Other - Hematologic/Lymphatic Hematologic: absent: As Per HPI, Easy Bleeding, Easy Bruising, Lymphadenopathy, Other Past Patient History - Infectious Disease Hx of Infectious Diseases: None - Tetanus Immunizations Tetanus Immunization: Unknown - Past Medical History & Family History Past Medical History?: Yes - Past Social History Smoking Status: Never Smoked - CARDIAC Hx Cardiac Disorders: Yes (HTN, hyperlipidemia,CAD, coronary stent) Hx Angina: Yes Hx Circulatory Problems: Yes Hx Congestive Heart Failure: Yes Hx Heart Attack: Yes Hx Hypercholesterolemia: Yes Hx Hypertension: Yes Hx Peripheral Edema: Yes Hx Peripheral Vascular Disease: Yes Other/Comment: Hyperlipidemia - PULMONARY Hx Respiratory Disorders: No Hx Chronic Obstructive Pulmonary Disease (COPD): No Hx Tuberculosis: No - NEUROLOGICAL Hx Neurological Disorder: Yes (CVA) HX Cerebrovascular Accident: Yes Hx Seizures: No - HEENT Hx HEENT Problems: No - RENAL Hx Chronic Kidney Disease: No Hx Renal Failure: No - ENDOCRINE/METABOLIC Hx Endocrine Disorders: Yes (DM) Hx Diabetes Mellitus Type 1: Yes Hx Diabetes Mellitus Type 2: Yes Hx Hypothyroidism: No - HEMATOLOGICAL/ONCOLOGICAL Hx Anemia: Yes Hx Blood Transfusions: Yes Hx Blood Transfusion Reaction: Yes - INTEGUMENTARY Hx Dermatological Problems: Yes Hx Cellulitis: Yes (ble) Other/Comment: Gangrene right 2nd toe - MUSCULOSKELETAL/RHEUMATOLOGICAL Hx Musculoskeletal Disorders: Yes (arthritis, back problems, hernated discs) Hx Arthritis: Yes Hx Back Pain: Yes Hx Degenerative Joint Disease: Yes Hx Falls: No Hx Herniated Disk: Yes Hx Osteomyelitis: Yes Hx Rheumatoid Arthritis: No Other/Comment: L charcot foot - GASTROINTESTINAL Hx Gastrointestinal Disorders: Yes - GENITOURINARY/GYNECOLOGICAL Hx Genitourinary Disorders: No Hx Sexually Transmitted Disorders: No Other/Comment: c section,ovarian cystectomy - PSYCHIATRIC Hx Psychophysiologic Disorder: Yes (anxiety, depression) Hx Anxiety: Yes Hx Depression: Yes Hx Emotional Abuse: No Hx Panic Symptoms: Yes Hx Physical Abuse: No Hx Substance Use: No - SURGICAL HISTORY Hx Surgeries: Yes Hx Amputation: Yes (right toes 2 years ago) Hx Appendectomy: Yes Hx Cardiac Catheterization: Yes (x1 stent) Hx Section: Yes (1996) Hx Coronary Stent: Yes Hx Orthopedic Surgery: Yes (Amputation toes right foot, 2 years ago) Hx Vascular Surgery: Yes (INSERTION OF STENT ON THE RIGHT LEG) Other/Comment: surgery L arm for compartmental syndrome. multiple foot surgeries. removal of ovaries - ANESTHESIA Hx Anesthesia: Yes Hx Anesthesia Reactions: Yes (CAN'T BREATH-ADMITTED TO ICU) Hx Malignant Hyperthermia: No Meds Allergies/Adverse Reactions: Allergies Allergy/AdvReac Type Severity Reaction Status Date / Time No Known Allergies Allergy Verified 03/17/18 04:21 - Medications Medications: Current Medications Acetaminophen (Tylenol 325mg Tab) 650 mg PO Q4 PRN PRN Reason: Pain, Mild (1-3) Albuterol/Ipratropium (Duoneb 3 Mg/0.5 Mg (3 Ml) Ud) 3 ml INH RQ6 PRN PRN Reason: Shortness of Breath Alprazolam (Xanax) 0.25 mg PO Q12 [facility] Stop: 04/05/18 10:16 Last Admin: 03/29/18 16:43 Dose: Not Given Aspirin (Aspirin Chewable) 81 mg PO DAILY [facility] Last Admin: 03/29/18 11:46 Dose: 81 mg Atorvastatin Calcium (Lipitor) 40 mg PO HS [facility] Clopidogrel Bisulfate (Plavix) 75 mg PO DAILY [facility] Last Admin: 03/29/18 11:45 Dose: 75 mg Enalapril Maleate (Vasotec) 10 mg PO BID [facility] Last Admin: 03/29/18 16:42 Dose: 10 mg Enoxaparin Sodium (Lovenox) 100 mg SC Q12 [facility] PRN Reason: Protocol Hydromorphone HCl (Dilaudid) 1 mg IVP Q4 PRN PRN Reason: Pain, moderate (4-7) Last Admin: 03/29/18 15:55 Dose: 1 mg Daptomycin 390 mg/ Sodium (Chloride) 100 mls @ 100 mls/hr IV Q24H [facility] Stop: 04/03/18 12:16 Last Admin: 03/29/18 16:12 Dose: 100 mls/hr Piperacillin Sod/Tazobactam (Sod 2.25 gm/ Sodium Chloride) 100 mls @ 100 mls/ hr IVPB Q8 [facility] PRN Reason: Protocol Last Admin: 03/29/18 17:18 Dose: 100 mls/hr Insulin Detemir (Levemir) 70 units SC HS [facility] Insulin Human Lispro (Humalog) 28 units SC AC [facility] Last Admin: 03/29/18 17:59 Dose: 28 u Insulin Human Lispro (Humalog) 0 units SC ACHS [facility] Last Admin: 03/29/18 17:59 Dose: 2 u Isosorbide Mononitrate (Imdur) 60 mg PO DAILY [facility] Last Admin: 03/29/18 14:37 Dose: 60 mg Metoprolol Succinate (Toprol Xl) 200 mg PO Q12 [facility] Ondansetron HCl (Zofran Inj) 4 mg IVP Q4 PRN PRN Reason: Nausea/Vomiting Last Admin: 03/29/18 14:00 Dose: 4 mg Oxycodone/Acetaminophen (Percocet 5/325 Mg Tab) 1 tab PO Q4 PRN PRN Reason: Pain, moderate (4-7) Stop: 03/31/18 12:36 Oxycodone/Acetaminophen (Percocet 5/325 Mg Tab) 2 tab PO Q4 PRN PRN Reason: Pain, severe (8-10) Stop: 03/31/18 12:36 Last Admin: 03/29/18 19:18 Dose: 2 tab Pantoprazole Sodium (Protonix Inj) 40 mg IVP DAILY [facility] Last Admin: 03/29/18 09:05 Dose: 40 mg Physical Exam - Constitutional Appears: Non-toxic - Head Exam Head Exam: NORMAL INSPECTION - Eye Exam Eye Exam: Normal appearance - ENT Exam ENT Exam: Mucous Membranes Moist - Neck Exam Neck exam: Positive for: Full Rom - Respiratory Exam Respiratory Exam: NORMAL BREATHING PATTERN - Cardiovascular Exam Cardiovascular Exam: REGULAR RHYTHM - GI/Abdominal Exam GI & Abdominal Exam: Normal Bowel Sounds - Rectal Exam Rectal Exam: Deferred - Extremities Exam Extremities exam: Positive for: pedal edema - Back Exam Back exam: NORMAL INSPECTION - Neurological Exam Neurological exam: Alert, Oriented x3 - Psychiatric Exam Psychiatric exam: Normal Affect - Skin Skin Exam: Normal Color Results - Vital Signs Recent Vital Signs: Last Vital Signs Temp 98.4 F 03/29/18 16:00 Pulse 108 H 03/29/18 18:00 Resp 14 03/29/18 18:00 BP 132/65 03/29/18 18:00 Pulse Ox 94 L 03/29/18 18:00 - Labs Result Diagrams: 03/29/18 04:19 03/29/18 04:19 Labs: Laboratory Results - last 24 hr 03/28/18 03/28/18 03/28/18 19:25 19:25 21:08 WBC 16.1 H D RBC 3.85 Hgb 10.3 L Hct 31.8 L MCV 82.6 MCH 26.7 L MCHC 32.3 L RDW 16.9 H Plt Count 317 MPV 7.5 Neut % (Auto) 92.3 H Lymph % (Auto) 3.4 L [place] % (Auto) 3.2 Eos % (Auto) 0.1 Baso % (Auto) 1.0 Neut # (Auto) 14.9 H Lymph # (Auto) 0.5 L [place] # (Auto) 0.5 Eos # (Auto) 0.0 Baso # (Auto) 0.2 Neutrophils % (Manual) 94 H Lymphocytes % (Manual) 4 L Monocytes % (Manual) 2 Platelet Estimate Normal Anisocytosis (manual) Slight Tear Drop Cells Slight Ovalocytes Slight Stomatocytes Slight Sodium 139 Potassium 4.5 Chloride 102 Carbon Dioxide 28 Anion Gap 14 BUN 31 H Creatinine 1.2 Est GFR ( Amer) 57 Est GFR (Non-Af Amer) 47 POC Glucose (mg/dL) 384 H Random Glucose 421 H* D Calcium 9.4 Phosphorus 5.3 H Magnesium 1.9 Total Bilirubin 0.6 AST 25 ALT 21 Alkaline Phosphatase 111 Troponin I 0.2510 H* NT-Pro-B Natriuret Pep 2380 H Total Protein 7.2 Albumin 3.7 Globulin 3.5 Albumin/Globulin Ratio 1.0 03/29/18 03/29/18 03/29/18 00:54 04:19 04:19 WBC 13.1 H RBC 3.62 L Hgb 9.8 L Hct 30.0 L MCV 82.7 MCH 27.0 MCHC 32.6 L RDW 17.2 H Plt Count 300 MPV Neut % (Auto) Lymph % (Auto) [place] % (Auto) Eos % (Auto) Baso % (Auto) Neut # (Auto) Lymph # (Auto) [place] # (Auto) Eos # (Auto) Baso # (Auto) Neutrophils % (Manual) Lymphocytes % (Manual) Monocytes % (Manual) Platelet Estimate Anisocytosis (manual) Tear Drop Cells Ovalocytes Stomatocytes Sodium 140 Potassium 4.4 Chloride 100 Carbon Dioxide 31 H Anion Gap 13 BUN 33 H Creatinine 1.3 H Est GFR ( Amer) 52 Est GFR (Non-Af Amer) 43 POC Glucose (mg/dL) 351 H Random Glucose 390 H Calcium 9.3 Phosphorus Magnesium Total Bilirubin AST ALT Alkaline Phosphatase Troponin I 1.0900 H* NT-Pro-B Natriuret Pep Total Protein Albumin Globulin Albumin/Globulin Ratio 03/29/18 03/29/18 03/29/18 05:44 08:05 11:13 WBC RBC Hgb Hct MCV MCH MCHC RDW Plt Count MPV Neut % (Auto) Lymph % (Auto) [place] % (Auto) Eos % (Auto) Baso % (Auto) Neut # (Auto) Lymph # (Auto) [place] # (Auto) Eos # (Auto) Baso # (Auto) Neutrophils % (Manual) Lymphocytes % (Manual) Monocytes % (Manual) Platelet Estimate Anisocytosis (manual) Tear Drop Cells Ovalocytes Stomatocytes Sodium Potassium Chloride Carbon Dioxide Anion Gap BUN Creatinine Est GFR ( Amer) Est GFR (Non-Af Amer) POC Glucose (mg/dL) 333 H 304 H 332 H Random Glucose Calcium Phosphorus Magnesium Total Bilirubin AST ALT Alkaline Phosphatase Troponin I NT-Pro-B Natriuret Pep Total Protein Albumin Globulin Albumin/Globulin Ratio 03/29/18 03/29/18 03/29/18 13:00 14:05 16:00 WBC RBC Hgb Hct MCV MCH MCHC RDW Plt Count MPV Neut % (Auto) Lymph % (Auto) [place] % (Auto) Eos % (Auto) Baso % (Auto) Neut # (Auto) Lymph # (Auto) [place] # (Auto) Eos # (Auto) Baso # (Auto) Neutrophils % (Manual) Lymphocytes % (Manual) Monocytes % (Manual) Platelet Estimate Anisocytosis (manual) Tear Drop Cells Ovalocytes Stomatocytes Sodium Potassium Chloride Carbon Dioxide Anion Gap BUN Creatinine Est GFR ( Amer) Est GFR (Non-Af Amer) POC Glucose (mg/dL) 375 H 321 H Random Glucose Calcium Phosphorus Magnesium Total Bilirubin AST ALT Alkaline Phosphatase Troponin I 0.3740 H* NT-Pro-B Natriuret Pep Total Protein Albumin Globulin Albumin/Globulin Ratio - EKG Data EKG Interpreted by: Myself Assessment & Plan (1) NSTEMI (non-ST elevated myocardial infarction) Assessment and Plan: likley subendocardial ischemia due to respirtatory distress. No current cangina. antiplatelet therapy and lovenox. will opt for medical therapy at this time. Status: Acute (2) CAD (coronary artery disease) Assessment and Plan: aggressive medical therapy Status: Chronic Priority: Medium (3) Hypertension Assessment and Plan: blood pressure control Status: Chronic Priority: Medium (4) Peripheral vascular disease Status: Chronic Priority: Medium
[2018-03-29] MEDS: Metoprolol Succinate 100 mg XL Tab PO SCH (20:19)
--- NOTE | 2018-03-29 20:46 | PN ---
DATE: 03/29/2018 ENDO FOLLOWUP NOTE LOCATION: In room 425 ICU. SUBJECTIVE: This is a 52-year-old female with recent uncontrolled type 2 insulin-requiring diabetes, now being followed closely for metabolic management. She was transferred from TCU yesterday after undergoing a lower extremity debridement and is now being referred for diabetic evaluation because of supervening hyperglycemic accelerations as noted thereof. Her glucose levels today have been quite elevated and have ranged from 304 to 332 and 375 mg/dL. LABORATORY DATA: Her latest chemistry showed a BUN of 33, sodium 140, potassium 4.4, chloride 100, CO2 of 31, glucose 390, and creatinine 1.3. She was successfully extubated this morning as noted and was actually on a sliding scale coverage as given every 4 hours as noted. ASSESSMENT: This is a 52-year-old female with uncontrolled and decompensated type 2 insulin-requiring diabetes with recent admission for left lower extremity cellulitis and underlying osteomyelitis. She also has diabetic microvascular complications of retinopathy, polyneuropathy and nephropathy with diabetic macrovascular complications of coronary artery disease and peripheral arterial disease and vasculopathy with a previous right transmetatarsal amputation in the right foot as noted. PLAN OF MANAGEMENT: We will switch her over now to a more physiologic basal and bolus insulin drug combination to optimize metabolic control. We will start her on the lower dose of Humalog given as 28 units subcu t.i.d. before meals as ordered. We will also start her with basal insulin given as Levemir at 70 units subcu at bedtime daily to start tonight. We will modify the coverage scale to obviate hypoglycemia and detailed orders have been given. We will continue the IV hydration as ordered. We will titrate incrementally as indicated to optimize metabolic control. We will obtain serial chemistries and supplement accordingly as needed. We will follow. Yesika Vogel MD
[2018-03-29] MEDS: Insulin Detemir 100 Units/ml Inj SC SCH (21:16)
[2018-03-29] MEDS: Enoxaparin 100 mg Syringe SC SCH (21:16)
[2018-03-30] MEDS ORDERED: Morphine 30 mg SR Tab PO SCH ×2 (01:45→17:00)
[2018-03-30] MEDS: Oxycodone/Acetaminophen 5/325 mg Tab PO PRN (03:55)
[2018-03-30 05:20] LABS: BASO % 0.2 % (0.0-2.0); EOS # 0.1 K/uL (0.0-0.7); EOS % 0.5 % (0.0-4.0); HEMOGLOBIN 8.8 g/dL (12.0-16.0); LYMPH # 0.9 K/uL (1.0-4.3); LYMPH % 7.3 % (20.0-40.0); MEAN CELL VOLUME 83.2 fl (81.0-99.0); MEAN CORPUSCULAR HGB CONC 32.4 g/dL (33.0-37.0); MEAN PLATELET VOLUME 7.6 fl (7.2-11.7); MONO # 0.7 K/uL (0.0-0.8); MONO % 5.6 % (0.0-10.0); NEUT # 10.3 K/uL (1.8-7.0); NEUT % 86.4 % (50.0-75.0); RBC 3.26 Mil/uL (3.80-5.20)
[2018-03-30 06:17] LABS: ALBUMIN 3.4 g/dL (3.5-5.0); ALT/SGPT 19 U/L (9-52); AST/SGOT 26 U/L (14-36); BLOOD UREA NITROGEN 33 mg/dl (7-17); CALCIUM 8.9 mg/dL (8.4-10.2); GFR NON-AFRICAN AMERICAN 52
[2018-03-30] MEDS: Enoxaparin 100 mg Syringe SC SCH ×2 (08:07→21:57)
[2018-03-30] MEDS: Insulin Lispro (humaLOG) 100 Units/ml Inj SC SCH ×7 (08:21→21:57)
[2018-03-30] MEDS: Metoprolol Succinate 100 mg XL Tab PO SCH ×2 (08:25→21:58)
--- NOTE | 2018-03-30 09:24 | CP.PCM.PN ---
Subjective - Date & Time of Evaluation Date of Evaluation: 03/30/18 Time of Evaluation: 09:28 - Subjective Subjective: AWAKE/ALERT AND ORIENTED X 3 C/O SEVERE FOOT PAIN AT SURGICAL SITE EXTUBATED Objective - Vital Signs/Intake and Output Vital Signs (last 24 hours): Temp Pulse Resp BP Pulse Ox 98.1 F 78 15 163/73 H 96 03/30/18 08:00 03/30/18 08:25 03/30/18 08:00 03/30/18 08:25 03/30/18 08:00 - Medications Medications: Current Medications Acetaminophen (Tylenol 325mg Tab) 650 mg PO Q4 PRN PRN Reason: Pain, Mild (1-3) Albuterol/Ipratropium (Duoneb 3 Mg/0.5 Mg (3 Ml) Ud) 3 ml INH RQ6 PRN PRN Reason: Shortness of Breath Alprazolam (Xanax) 0.25 mg PO Q12 [facility] Stop: 04/05/18 10:16 Last Admin: 03/30/18 08:09 Dose: 0.25 mg Aspirin (Aspirin Chewable) 81 mg PO DAILY [facility] Last Admin: 03/30/18 08:12 Dose: 81 mg Atorvastatin Calcium (Lipitor) 40 mg PO HS [facility] Last Admin: 03/29/18 21:13 Dose: 40 mg Clopidogrel Bisulfate (Plavix) 75 mg PO DAILY [facility] Last Admin: 03/30/18 08:07 Dose: 75 mg Enalapril Maleate (Vasotec) 10 mg PO BID [facility] Last Admin: 03/30/18 08:25 Dose: 10 mg Enoxaparin Sodium (Lovenox) 100 mg SC Q12 [facility] PRN Reason: Protocol Last Admin: 03/30/18 08:07 Dose: 100 mg Hydromorphone HCl (Dilaudid) 1 mg IVP Q4 PRN PRN Reason: Pain, moderate (4-7) Last Admin: 03/30/18 03:54 Dose: 1 mg Daptomycin 390 mg/ Sodium (Chloride) 100 mls @ 100 mls/hr IV Q24H [facility] Stop: 04/03/18 12:16 Last Admin: 03/29/18 16:12 Dose: 100 mls/hr Piperacillin Sod/Tazobactam (Sod 2.25 gm/ Sodium Chloride) 100 mls @ 100 mls/ hr IVPB Q8 [facility] PRN Reason: Protocol Last Admin: 03/30/18 08:09 Dose: 100 mls/hr Insulin Detemir (Levemir) 70 units SC HS [facility] Last Admin: 03/29/18 21:16 Dose: 70 units Insulin Human Lispro (Humalog) 0 units SC ACHS [facility] Last Admin: 03/30/18 08:21 Dose: Not Given Insulin Human Lispro (Humalog) 30 units SC AC [facility] Isosorbide Mononitrate (Imdur) 60 mg PO DAILY [facility] Last Admin: 03/30/18 08:07 Dose: 60 mg Metoprolol Succinate (Toprol Xl) 200 mg PO Q12 [facility] Last Admin: 03/30/18 08:25 Dose: 200 mg Morphine Sulfate (Morphine Extended Release Tab) 30 mg PO Q12H [facility] Last Admin: 03/30/18 01:45 Dose: 30 mg Ondansetron HCl (Zofran Inj) 4 mg IVP Q4 PRN PRN Reason: Nausea/Vomiting Last Admin: 03/29/18 14:00 Dose: 4 mg Oxycodone/Acetaminophen (Percocet 5/325 Mg Tab) 1 tab PO Q4 PRN PRN Reason: Pain, moderate (4-7) Stop: 03/31/18 12:36 Oxycodone/Acetaminophen (Percocet 5/325 Mg Tab) 2 tab PO Q4 PRN PRN Reason: Pain, severe (8-10) Stop: 03/31/18 12:36 Last Admin: 03/30/18 03:55 Dose: 2 tab Pantoprazole Sodium (Protonix Inj) 40 mg IVP DAILY [facility] Last Admin: 03/30/18 08:08 Dose: 40 mg - Labs Labs: 03/30/18 04:25 03/30/18 04:25 - Constitutional Appears: In Acute Distress - Head Exam Head Exam: ATRAUMATIC, NORMAL INSPECTION, NORMOCEPHALIC - Eye Exam Eye Exam: EOMI, Normal appearance, PERRL Pupil Exam: NORMAL ACCOMODATION, PERRL - ENT Exam ENT Exam: Mucous Membranes Moist, Normal Exam - Neck Exam Neck Exam: Full ROM, Normal Inspection. absent: Lymphadenopathy - Respiratory Exam Respiratory Exam: Clear to Ausculation Bilateral, NORMAL BREATHING PATTERN - Cardiovascular Exam Cardiovascular Exam: REGULAR RHYTHM, +S1, +S2. absent: Murmur - GI/Abdominal Exam GI & Abdominal Exam: Soft, Normal Bowel Sounds. absent: Tenderness - Rectal Exam Rectal Exam: NORMAL INSPECTION - Extremities Exam Extremities Exam: Tenderness. absent: Joint Swelling, Pedal Edema Additional comments: S/P L FOOT SURGERY - Back Exam Back Exam: NORMAL INSPECTION - Neurological Exam Neurological Exam: Abnormal Gait, Alert, Awake, CN II-XII Intact, Oriented x3 - Psychiatric Exam Psychiatric exam: Normal Affect, Normal Mood - Skin Skin Exam: Dry, Warm Assessment and Plan - Assessment and Plan (Free Text) Assessment: S/P L FOOT SURGERY CHARCOT DEFORMITY OF L FOOT OSTEOMYELITIS OF L FOOT CELLULITIS OF L FOOT NSTEMI WITH CHF--IMPROVED CHRONIC PAIN SYNDROME CHF--IMPROVED DM-UNCONTROLLED ANEMIA Plan: CONTINUE CURRENT RX PAIN MANAGEMENT
[2018-03-30] MEDS: oxyCODONE 10 mg Immediate Release Tab PO PRN ×3 (09:52→21:53)
--- NOTE | 2018-03-30 09:53 | CP.PCM.PN ---
Subjective - Date & Time of Evaluation Date of Evaluation: 03/30/18 Time of Evaluation: 09:53 - Subjective Subjective: ID Note- Pt. seen and examined today in ICU. awake and alert but c/o left foot pain. has remained afebrile. Objective - Vital Signs/Intake and Output Vital Signs (last 24 hours): Temp Pulse Resp BP Pulse Ox 98.1 F 78 15 163/73 H 96 03/30/18 08:00 03/30/18 08:25 03/30/18 08:00 03/30/18 08:25 03/30/18 08:00 - Medications Medications: Current Medications Acetaminophen (Tylenol 325mg Tab) 650 mg PO Q4 PRN PRN Reason: Pain, Mild (1-3) Albuterol/Ipratropium (Duoneb 3 Mg/0.5 Mg (3 Ml) Ud) 3 ml INH RQ6 PRN PRN Reason: Shortness of Breath Alprazolam (Xanax) 0.25 mg PO Q12 [facility] Stop: 04/05/18 10:16 Last Admin: 03/30/18 08:09 Dose: 0.25 mg Aspirin (Aspirin Chewable) 81 mg PO DAILY [facility] Last Admin: 03/30/18 08:12 Dose: 81 mg Atorvastatin Calcium (Lipitor) 40 mg PO HS [facility] Last Admin: 03/29/18 21:13 Dose: 40 mg Clopidogrel Bisulfate (Plavix) 75 mg PO DAILY [facility] Last Admin: 03/30/18 08:07 Dose: 75 mg Enalapril Maleate (Vasotec) 10 mg PO BID [facility] Last Admin: 03/30/18 08:25 Dose: 10 mg Enoxaparin Sodium (Lovenox) 100 mg SC Q12 [facility] PRN Reason: Protocol Last Admin: 03/30/18 08:07 Dose: 100 mg Hydromorphone HCl (Dilaudid) 1 mg IVP Q4 PRN PRN Reason: Pain, moderate (4-7) Last Admin: 03/30/18 03:54 Dose: 1 mg Daptomycin 390 mg/ Sodium (Chloride) 100 mls @ 100 mls/hr IV Q24H [facility] Stop: 04/03/18 12:16 Last Admin: 03/29/18 16:12 Dose: 100 mls/hr Piperacillin Sod/Tazobactam (Sod 2.25 gm/ Sodium Chloride) 100 mls @ 100 mls/ hr IVPB Q8 [facility] PRN Reason: Protocol Last Admin: 03/30/18 08:09 Dose: 100 mls/hr Insulin Detemir (Levemir) 70 units SC HS [facility] Last Admin: 03/29/18 21:16 Dose: 70 units Insulin Human Lispro (Humalog) 0 units SC ACHS [facility] Last Admin: 03/30/18 08:21 Dose: Not Given Insulin Human Lispro (Humalog) 30 units SC AC [facility] Last Admin: 03/30/18 09:47 Dose: 30 units Isosorbide Mononitrate (Imdur) 60 mg PO DAILY [facility] Last Admin: 03/30/18 08:07 Dose: 60 mg Metoprolol Succinate (Toprol Xl) 200 mg PO Q12 [facility] Last Admin: 03/30/18 08:25 Dose: 200 mg Morphine Sulfate (Morphine Extended Release Tab) 30 mg PO Q12H [facility] Last Admin: 03/30/18 01:45 Dose: 30 mg Ondansetron HCl (Zofran Inj) 4 mg IVP Q4 PRN PRN Reason: Nausea/Vomiting Last Admin: 03/29/18 14:00 Dose: 4 mg Oxycodone HCl (Oxycodone Immediate Release Tab) 30 mg PO Q6 PRN PRN Reason: Pain, moderate (4-7) Pantoprazole Sodium (Protonix Inj) 40 mg IVP DAILY [facility] Last Admin: 03/30/18 08:08 Dose: 40 mg - Labs Labs: - Additional Findings Additional findings: - Constitutional Appears: No Acute Distress - Head Exam Head Exam: ATRAUMATIC - Eye Exam Eye Exam: EOMI - ENT Exam ENT Exam: Normal Oropharynx - Neck Exam Neck exam: Positive for: Full Rom - Respiratory Exam Additional comments: breath sounds heard B/L no wheezing - Cardiovascular Exam Cardiovascular Exam: RRR, +S1, +S2 - GI/Abdominal Exam GI & Abdominal Exam: Normal Bowel Sounds, Soft Additional comments: NT, ND - Extremities Exam Additional comments: right foot TMA ( old) left foot in post surgical dressing and external fixation in place - Neurological Exam Neurological exam: Alert, Oriented x 3 Laboratory Results - last 72 hr 03/28/18 03/28/18 03/28/18 10:45 12:44 16:09 WBC RBC Hgb Hct MCV MCH MCHC RDW Plt Count MPV Neut % (Auto) Lymph % (Auto) [place] % (Auto) Eos % (Auto) Baso % (Auto) Neut # (Auto) Lymph # (Auto) [place] # (Auto) Eos # (Auto) Baso # (Auto) Neutrophils % (Manual) Lymphocytes % (Manual) Monocytes % (Manual) Platelet Estimate Anisocytosis (manual) Tear Drop Cells Ovalocytes Stomatocytes pCO2 47 H pO2 111 H HCO3 22.3 ABG pH 7.30 L ABG Total CO2 24.5 ABG O2 Saturation 98.0 ABG O2 Content 14.0 L ABG Base Excess -3.4 L ABG Hemoglobin 10.3 L ABG Carboxyhemoglobin 1.6 H POC ABG HHb (Measured) 1.9 ABG Methemoglobin 1.2 ABG O2 Capacity 14.3 L Tony Test Yes A-a O2 Difference 543.0 Hgb O2 Saturation 95.3 Vent Mode A/c Mechanical Rate 10 FiO2 100.0 Tidal Volume 500 Sodium Potassium Chloride Carbon Dioxide Anion Gap BUN Creatinine Est GFR ( Amer) Est GFR (Non-Af Amer) POC Glucose (mg/dL) 270 H Random Glucose Calcium Phosphorus Magnesium Total Bilirubin AST ALT Alkaline Phosphatase Troponin I NT-Pro-B Natriuret Pep Total Protein Albumin Globulin Albumin/Globulin Ratio Blood Type B POSITIVE Antibody Screen Negative BBK History Checked Patient has bt 03/28/18 03/28/18 03/28/18 18:19 18:22 19:25 WBC 16.1 H D RBC 3.85 Hgb 10.3 L Hct 31.8 L MCV 82.6 MCH 26.7 L MCHC 32.3 L RDW 16.9 H Plt Count 317 MPV 7.5 Neut % (Auto) 92.3 H Lymph % (Auto) 3.4 L [place] % (Auto) 3.2 Eos % (Auto) 0.1 Baso % (Auto) 1.0 Neut # (Auto) 14.9 H Lymph # (Auto) 0.5 L [place] # (Auto) 0.5 Eos # (Auto) 0.0 Baso # (Auto) 0.2 Neutrophils % (Manual) 94 H Lymphocytes % (Manual) 4 L Monocytes % (Manual) 2 Platelet Estimate Normal Anisocytosis (manual) Slight Tear Drop Cells Slight Ovalocytes Slight Stomatocytes Slight pCO2 pO2 HCO3 ABG pH ABG Total CO2 ABG O2 Saturation ABG O2 Content ABG Base Excess ABG Hemoglobin ABG Carboxyhemoglobin POC ABG HHb (Measured) ABG Methemoglobin ABG O2 Capacity Tony Test A-a O2 Difference Hgb O2 Saturation Vent Mode Mechanical Rate FiO2 Tidal Volume Sodium Potassium Chloride Carbon Dioxide Anion Gap BUN Creatinine Est GFR ( Amer) Est GFR (Non-Af Amer) POC Glucose (mg/dL) 403 H* 401 H* Random Glucose Calcium Phosphorus Magnesium Total Bilirubin AST ALT Alkaline Phosphatase Troponin I NT-Pro-B Natriuret Pep Total Protein Albumin Globulin Albumin/Globulin Ratio Blood Type Antibody Screen BBK History Checked 03/28/18 03/28/18 03/29/18 19:25 21:08 00:54 WBC RBC Hgb Hct MCV MCH MCHC RDW Plt Count MPV Neut % (Auto) Lymph % (Auto) [place] % (Auto) Eos % (Auto) Baso % (Auto) Neut # (Auto) Lymph # (Auto) [place] # (Auto) Eos # (Auto) Baso # (Auto) Neutrophils % (Manual) Lymphocytes % (Manual) Monocytes % (Manual) Platelet Estimate Anisocytosis (manual) Tear Drop Cells Ovalocytes Stomatocytes pCO2 pO2 HCO3 ABG pH ABG Total CO2 ABG O2 Saturation ABG O2 Content ABG Base Excess ABG Hemoglobin ABG Carboxyhemoglobin POC ABG HHb (Measured) ABG Methemoglobin ABG O2 Capacity Tony Test A-a O2 Difference Hgb O2 Saturation Vent Mode Mechanical Rate FiO2 Tidal Volume Sodium 139 Potassium 4.5 Chloride 102 Carbon Dioxide 28 Anion Gap 14 BUN 31 H Creatinine 1.2 Est GFR ( Amer) 57 Est GFR (Non-Af Amer) 47 POC Glucose (mg/dL) 384 H 351 H Random Glucose 421 H* D Calcium 9.4 Phosphorus 5.3 H Magnesium 1.9 Total Bilirubin 0.6 AST 25 ALT 21 Alkaline Phosphatase 111 Troponin I 0.2510 H* NT-Pro-B Natriuret Pep 2380 H Total Protein 7.2 Albumin 3.7 Globulin 3.5 Albumin/Globulin Ratio 1.0 Blood Type Antibody Screen BBK History Checked 03/29/18 03/29/18 03/29/18 04:19 04:19 05:44 WBC 13.1 H RBC 3.62 L Hgb 9.8 L Hct 30.0 L MCV 82.7 MCH 27.0 MCHC 32.6 L RDW 17.2 H Plt Count 300 MPV Neut % (Auto) Lymph % (Auto) [place] % (Auto) Eos % (Auto) Baso % (Auto) Neut # (Auto) Lymph # (Auto) [place] # (Auto) Eos # (Auto) Baso # (Auto) Neutrophils % (Manual) Lymphocytes % (Manual) Monocytes % (Manual) Platelet Estimate Anisocytosis (manual) Tear Drop Cells Ovalocytes Stomatocytes pCO2 pO2 HCO3 ABG pH ABG Total CO2 ABG O2 Saturation ABG O2 Content ABG Base Excess ABG Hemoglobin ABG Carboxyhemoglobin POC ABG HHb (Measured) ABG Methemoglobin ABG O2 Capacity Tony Test A-a O2 Difference Hgb O2 Saturation Vent Mode Mechanical Rate FiO2 Tidal Volume Sodium 140 Potassium 4.4 Chloride 100 Carbon Dioxide 31 H Anion Gap 13 BUN 33 H Creatinine 1.3 H Est GFR ( Amer) 52 Est GFR (Non-Af Amer) 43 POC Glucose (mg/dL) 333 H Random Glucose 390 H Calcium 9.3 Phosphorus Magnesium Total Bilirubin AST ALT Alkaline Phosphatase Troponin I 1.0900 H* NT-Pro-B Natriuret Pep Total Protein Albumin Globulin Albumin/Globulin Ratio Blood Type Antibody Screen BBK History Checked 03/29/18 03/29/18 03/29/18 08:05 11:13 13:00 WBC RBC Hgb Hct MCV MCH MCHC RDW Plt Count MPV Neut % (Auto) Lymph % (Auto) [place] % (Auto) Eos % (Auto) Baso % (Auto) Neut # (Auto) Lymph # (Auto) [place] # (Auto) Eos # (Auto) Baso # (Auto) Neutrophils % (Manual) Lymphocytes % (Manual) Monocytes % (Manual) Platelet Estimate Anisocytosis (manual) Tear Drop Cells Ovalocytes Stomatocytes pCO2 pO2 HCO3 ABG pH ABG Total CO2 ABG O2 Saturation ABG O2 Content ABG Base Excess ABG Hemoglobin ABG Carboxyhemoglobin POC ABG HHb (Measured) ABG Methemoglobin ABG O2 Capacity Tony Test A-a O2 Difference Hgb O2 Saturation Vent Mode Mechanical Rate FiO2 Tidal Volume Sodium Potassium Chloride Carbon Dioxide Anion Gap BUN Creatinine Est GFR ( Amer) Est GFR (Non-Af Amer) POC Glucose (mg/dL) 304 H 332 H Random Glucose Calcium Phosphorus Magnesium Total Bilirubin AST ALT Alkaline Phosphatase Troponin I 0.3740 H* NT-Pro-B Natriuret Pep Total Protein Albumin Globulin Albumin/Globulin Ratio Blood Type Antibody Screen BBK History Checked 03/29/18 03/29/18 03/29/18 14:05 16:00 20:15 WBC RBC Hgb Hct MCV MCH MCHC RDW Plt Count MPV Neut % (Auto) Lymph % (Auto) [place] % (Auto) Eos % (Auto) Baso % (Auto) Neut # (Auto) Lymph # (Auto) [place] # (Auto) Eos # (Auto) Baso # (Auto) Neutrophils % (Manual) Lymphocytes % (Manual) Monocytes % (Manual) Platelet Estimate Anisocytosis (manual) Tear Drop Cells Ovalocytes Stomatocytes pCO2 pO2 HCO3 ABG pH ABG Total CO2 ABG O2 Saturation ABG O2 Content ABG Base Excess ABG Hemoglobin ABG Carboxyhemoglobin POC ABG HHb (Measured) ABG Methemoglobin ABG O2 Capacity Tony Test A-a O2 Difference Hgb O2 Saturation Vent Mode Mechanical Rate FiO2 Tidal Volume Sodium Potassium Chloride Carbon Dioxide Anion Gap BUN Creatinine Est GFR ( Amer) Est GFR (Non-Af Amer) POC Glucose (mg/dL) 375 H 321 H 274 H Random Glucose Calcium Phosphorus Magnesium Total Bilirubin AST ALT Alkaline Phosphatase Troponin I NT-Pro-B Natriuret Pep Total Protein Albumin Globulin Albumin/Globulin Ratio Blood Type Antibody Screen BBK History Checked 03/29/18 03/30/18 03/30/18 23:57 04:00 04:25 WBC 12.0 H RBC 3.26 L Hgb 8.8 L Hct 27.1 L MCV 83.2 MCH 27.0 MCHC 32.4 L RDW 17.0 H Plt Count 270 MPV 7.6 Neut % (Auto) 86.4 H Lymph % (Auto) 7.3 L [place] % (Auto) 5.6 Eos % (Auto) 0.5 Baso % (Auto) 0.2 Neut # (Auto) 10.3 H Lymph # (Auto) 0.9 L [place] # (Auto) 0.7 Eos # (Auto) 0.1 Baso # (Auto) 0.0 Neutrophils % (Manual) Lymphocytes % (Manual) Monocytes % (Manual) Platelet Estimate Anisocytosis (manual) Tear Drop Cells Ovalocytes Stomatocytes pCO2 pO2 HCO3 ABG pH ABG Total CO2 ABG O2 Saturation ABG O2 Content ABG Base Excess ABG Hemoglobin ABG Carboxyhemoglobin POC ABG HHb (Measured) ABG Methemoglobin ABG O2 Capacity Tony Test A-a O2 Difference Hgb O2 Saturation Vent Mode Mechanical Rate FiO2 Tidal Volume Sodium Potassium Chloride Carbon Dioxide Anion Gap BUN Creatinine Est GFR ( Amer) Est GFR (Non-Af Amer) POC Glucose (mg/dL) 220 H 208 H Random Glucose Calcium Phosphorus Magnesium Total Bilirubin AST ALT Alkaline Phosphatase Troponin I NT-Pro-B Natriuret Pep Total Protein Albumin Globulin Albumin/Globulin Ratio Blood Type Antibody Screen BBK History Checked 03/30/18 03/30/18 03/30/18 04:25 08:20 11:34 WBC RBC Hgb Hct MCV MCH MCHC RDW Plt Count MPV Neut % (Auto) Lymph % (Auto) [place] % (Auto) Eos % (Auto) Baso % (Auto) Neut # (Auto) Lymph # (Auto) [place] # (Auto) Eos # (Auto) Baso # (Auto) Neutrophils % (Manual) Lymphocytes % (Manual) Monocytes % (Manual) Platelet Estimate Anisocytosis (manual) Tear Drop Cells Ovalocytes Stomatocytes pCO2 pO2 HCO3 ABG pH ABG Total CO2 ABG O2 Saturation ABG O2 Content ABG Base Excess ABG Hemoglobin ABG Carboxyhemoglobin POC ABG HHb (Measured) ABG Methemoglobin ABG O2 Capacity Tony Test A-a O2 Difference Hgb O2 Saturation Vent Mode Mechanical Rate FiO2 Tidal Volume Sodium 141 Potassium 3.6 Chloride 103 Carbon Dioxide 33 H Anion Gap 9 L BUN 33 H Creatinine 1.1 Est GFR ( Amer) > 60 Est GFR (Non-Af Amer) 52 POC Glucose (mg/dL) 183 H 258 H Random Glucose 195 H Calcium 8.9 Phosphorus 2.8 Magnesium 2.3 Total Bilirubin 0.7 AST 26 ALT 19 Alkaline Phosphatase 93 Troponin I NT-Pro-B Natriuret Pep Total Protein 6.9 Albumin 3.4 L Globulin 3.5 Albumin/Globulin Ratio 1.0 Blood Type Antibody Screen BBK History Checked Microbiology 03/17/18 05:30 Urine Urine Culture - Final No Growth (<1,000 CFU/ML) 03/17/18 00:08 Foot - Left Gram Stain - Final 03/17/18 00:08 Foot - Left Wound Culture - Final Corynebacterium Species 03/17/18 00:05 Blood Blood Culture - Final 03/17/18 00:05 Blood Gram Stain - Final NO GROWTH AFTER 5 DAYS TEST NOT PERFORMED 03/16/18 00:25 Blood Blood Culture - Final 03/16/18 00:25 Blood Gram Stain - Final NO GROWTH AFTER 5 DAYS TEST NOT PERFORMED Accession No. : [id number] Patient Name / ID : PITO Bang / [id number] Exam Date : 03/29/2018 10:46:01 ( Approved ) Study Comment : Sex / Age : F / 52Y Creator : Dileep Maynard MD Dictator : Dileep Maynard MD Laboratory Equipment Installer : Spinning Room Worker : Dileep Maynard MD Approver2 : Report Date : 03/29/2018 11:20:22 My Comment : Date of service: 03/29/2018 PROCEDURE: Left Ankle Radiographs. HISTORY: s/p left charcot reconstruction w/ ex fix COMPARISON: None FINDINGS: BONES: External fixator device obscures evaluation of the ankle. No obvious fracture subluxation or dislocation appreciable. No destructive bony lesion identified. JOINTS: Talar dome is intact. The superior lateral ankle mortise appears somewhat widened. Clinically correlate further. SOFT TISSUES: Normal. OTHER FINDINGS: None. IMPRESSION: External fixator device obscures ankle with no acute fracture or dislocation appreciated. Widening of the superolateral ankle mortise is questioned. Clinically correlate. Accession No. : [id number] Patient Name / ID : PITO Bang / [id number] Exam Date : 03/29/2018 07:32:04 ( Approved ) Study Comment : Sex / Age : F / 52Y Creator : Dileep Maynard MD Dictator : Dileep Maynard MD Laboratory Equipment Installer : Spinning Room Worker : Dileep Maynard MD Approver2 : Report Date : 03/29/2018 08:24:45 My Comment : Date of service: 03/29/2018 PROCEDURE: CHEST RADIOGRAPH, 1 VIEW HISTORY: Acute Pulmonary edema COMPARISON: Portable chest 03/28/2018 5:01 p.m.. FINDINGS: LUNGS: Endotracheal tube and right PICC are not significantly changed in position. Slightly diminished bilateral infiltrates are appreciated. PLEURA: No pneumothorax or pleural fluid seen. CARDIOVASCULAR: Cardiomediastinal silhouette is stable. Pulmonary vascular congestion pattern slightly improved. OSSEOUS STRUCTURES: No significant abnormalities. VISUALIZED UPPER ABDOMEN: Normal. OTHER FINDINGS: None. IMPRESSION: Likely improved CHF. Bilateral airspace disease appears improved. Assessment and Plan (1) Acute pulmonary edema Status: Acute (2) Diabetes mellitus with hyperglycemia Status: Chronic (3) Charcot's joint arthropathy in type 2 diabetes mellitus Status: Acute (4) Diabetic foot ulcer Status: Acute - Assessment and Plan (Free Text) Assessment: A/P- 52 year old female with CAD, HTN, DM II was originally admitted with left plantar foot open wound and surrounding erythema . s/p left charcot foot surgery with external fixation POD #2 afebrile leukocytosis trending down blood cx- neg x 2 foot wound cx- corynebacterium CT report- ? acute or chronic Om as per report High ESR plan- advise to continue with renal dose zosyn. day #13 has completed 9 days of Iv daptomycin , now that her renal function is much improved can d/c daptomycin and start Iv vancomycin 750 mg BID for empiric staph coverage and OM treatment. keep vanco trough <15. spoke with podiatry and asked if they are planning on removing or debriding the necrotic bone as the length of abx will depend on this. as per podiatry pt. will go for second charcot surgery ( second part) , await response regarding whether necrotic bone would be debrided or not. check ESR. ICU time 40 min. d/w Balancing Machine Set Up Worker.
--- NOTE | 2018-03-30 11:37 | CP.PCM.PN ---
Subjective - Date & Time of Evaluation Date of Evaluation: 03/30/18 Time of Evaluation: 11:30 - Subjective Subjective: 52 yo, POD #2, is extubated and complaining of severe pain. Her home medication of Roxicodone 30mg was temporarily held after surgery, and her pain was intractable. Since Roxicodone 30mg was re-instituted, her pain has been better controlled. However, she still has pain in the operative pain especially along the lateral ankle. Her vital signs have been stable. She's not hypotensive and denies lethargy, respiratory distress. Objective - Vital Signs/Intake and Output Vital Signs (last 24 hours): Temp Pulse Resp BP Pulse Ox 98.1 F 76 15 144/64 99 03/30/18 08:00 03/30/18 10:00 03/30/18 10:00 03/30/18 10:00 03/30/18 10:00 - Medications Medications: Current Medications Acetaminophen (Tylenol 325mg Tab) 650 mg PO Q4 PRN PRN Reason: Pain, Mild (1-3) Albuterol/Ipratropium (Duoneb 3 Mg/0.5 Mg (3 Ml) Ud) 3 ml INH RQ6 PRN PRN Reason: Shortness of Breath Alprazolam (Xanax) 0.25 mg PO Q12 [facility] Stop: 04/05/18 10:16 Last Admin: 03/30/18 08:09 Dose: 0.25 mg Aspirin (Aspirin Chewable) 81 mg PO DAILY [facility] Last Admin: 03/30/18 08:12 Dose: 81 mg Atorvastatin Calcium (Lipitor) 40 mg PO HS [facility] Last Admin: 03/29/18 21:13 Dose: 40 mg Clopidogrel Bisulfate (Plavix) 75 mg PO DAILY [facility] Last Admin: 03/30/18 08:07 Dose: 75 mg Enalapril Maleate (Vasotec) 10 mg PO BID [facility] Last Admin: 03/30/18 08:25 Dose: 10 mg Enoxaparin Sodium (Lovenox) 100 mg SC Q12 [facility] PRN Reason: Protocol Last Admin: 03/30/18 08:07 Dose: 100 mg Hydromorphone HCl (Dilaudid) 1 mg IVP Q4 PRN PRN Reason: Pain, moderate (4-7) Last Admin: 03/30/18 03:54 Dose: 1 mg Daptomycin 390 mg/ Sodium (Chloride) 100 mls @ 100 mls/hr IV Q24H [facility] Stop: 04/03/18 12:16 Last Admin: 03/29/18 16:12 Dose: 100 mls/hr Piperacillin Sod/Tazobactam (Sod 2.25 gm/ Sodium Chloride) 100 mls @ 100 mls/ hr IVPB Q8 [facility] PRN Reason: Protocol Last Admin: 03/30/18 08:09 Dose: 100 mls/hr Insulin Detemir (Levemir) 70 units SC HS [facility] Last Admin: 03/29/18 21:16 Dose: 70 units Insulin Human Lispro (Humalog) 0 units SC ACHS [facility] Last Admin: 03/30/18 08:21 Dose: Not Given Insulin Human Lispro (Humalog) 30 units SC AC [facility] Last Admin: 03/30/18 09:47 Dose: 30 units Isosorbide Mononitrate (Imdur) 60 mg PO DAILY [facility] Last Admin: 03/30/18 08:07 Dose: 60 mg Metoprolol Succinate (Toprol Xl) 200 mg PO Q12 [facility] Last Admin: 03/30/18 08:25 Dose: 200 mg Morphine Sulfate (Morphine Extended Release Tab) 30 mg PO Q12H [facility] Last Admin: 03/30/18 01:45 Dose: 30 mg Ondansetron HCl (Zofran Inj) 4 mg IVP Q4 PRN PRN Reason: Nausea/Vomiting Last Admin: 03/29/18 14:00 Dose: 4 mg Oxycodone HCl (Oxycodone Immediate Release Tab) 30 mg PO Q6 PRN PRN Reason: Pain, moderate (4-7) Last Admin: 03/30/18 09:52 Dose: 30 mg Pantoprazole Sodium (Protonix Inj) 40 mg IVP DAILY [facility] Last Admin: 03/30/18 08:08 Dose: 40 mg - Labs Labs: 03/30/18 04:25 03/30/18 04:25 - Extremities Exam Additional comments: w/p left ex-fix. Assessment and Plan - Assessment and Plan (Free Text) Assessment: 52 yo woman w/ chronic pain, s/p left ex-fix of ankle/foot. Had cardiac ischemia/flash pulmonary edema. Clinically stable. - increase MS Contin to q8h - restart Roxicodone 30mg q6h PRN, which is patient's home med - keep dilaudid IV at same dose for now
--- NOTE | 2018-03-30 11:43 | CP.CCUPN ---
CCU Subjective - Physician Review Subjective (Free Text): Now asleep, easily arousable, no distress now. Earlier, noted to be constantly moaning with left foot and wound pain, unrelieved with multiple doses of Percocet and Dilaudid; finally after 1 mg IVP Dilaudid. Previous home regimen of narcotic analgesics reviewed. Stable resp status since extubation yesterday, on nasal oxygen, with 100% SPO2. Other vitals and I/O's reviewed. No fever spikes last 24H. Other hemodynamics and fluid balance stable. ROS: No other pertinent negs or positives on 10+ system review. PMSFH: All other Nursing and physician documentation reviewed to date; no new pertinent info noted relevant to current medical problems. EXAM- HEENT: no icterus, no gaze preference, pupils equal and reactive NECK: No JVD visible, supple, carotids equal upstroke bilat/no bruits CHEST: decreased BS bases, no wheezes audible HEART: regular, distant, Tachy S1S2, no rubs ABD: soft, no increased distention, no tympany, no focal tenderness, BS hypoactive, no rebound. EXT: no peripheral/ digital cyanosis, no calf tenderness or palpable cords, distal pulses intact and symmetrical. Dressing intact over Left LE/Foot. NEURO: no gross focal motor deficits SKIN: no new rashes; otherwise warm and dry. LABS: WBC= 12.0 HGB= 8.8 from 10.3 on admission 2 days ago. PLTs= 270K Xg=162 K= 3.6 CL= 103 HCO3= 33 BUN/Cr= 33/1.1 BS= 195 Trops: 0.25, 1.09, 0.374 CXR (my interp): no new consolidation, previous congestive changes improved. IMPRESSION / MAJOR PROBLEMS NOW: 1. Post-Op Acute Resp insuff 2 Pulm Edema 2. NSTEMI 3. s/p Left Foot Charcot Joint Reconstruction 4. Chronic Pain Syndrome 5. Chronic Disease Anemia PLAN: 1. Conservative mgmt. of NSTEMI as per Cardio: ASA, BBs, Statin, anti- platelets, nitrates. 2. Zosyn / Dapto coverage. 3. Additional Dilaudid IVP added prn. Discussed with PMD: Pain Mgmt evaluation to achieve adequate pain control given opioid tolerance. 4. Watch serial Hgb, no need for PRBCs at this point. CCU Objective - Vital Signs / Intake & Output Vital Signs (Last 4 hours): Vital Signs Temp Pulse Resp BP Pulse Ox 03/30/18 10:00 76 15 144/64 99 03/30/18 08:25 78 163/73 H 03/30/18 08:00 98.1 F 77 15 130/59 L 96 Intake and Output (Last 8hrs): Intake & Output 03/29/18 03/30/18 03/30/18 22:59 06:59 14:59 Intake Total 972 Output Total 450 Balance 522 Intake: IV 192 Intake, Piggyback 300 Oral 480 Output: Urine 450 Urethral ([place]vedo) 450 Other: # Bowel Movements 0 Critical Care Progress Note - Nutrition Nutrition: Nutrition Category Date Time Status Consistent Carbohydrate [DIET] Diets 03/28/18 Lunch Active
--- NOTE | 2018-03-30 15:05 | CP.PCM.CON ---
History of Present Illness - History of Present Illness History of Present Illness: Patient is POD #2 s/p stage 1 of left charcot foot deformity repair in [place]. When evaluated she was just completing her physical therapy session which she states she was able to tolerate. At present she is hemodynamically stable and denies chest discomfort or respiratory difficulty s/p extubation in ICU 03/29/ AM. She reports persistent operative site pain control however was reassured that the pain management and primary team will continue to optimize her pain control. Past Patient History - Infectious Disease Hx of Infectious Diseases: None - Tetanus Immunizations Tetanus Immunization: Unknown - Past Medical History & Family History Past Medical History?: Yes - Past Social History Smoking Status: Never Smoked - CARDIAC Hx Cardiac Disorders: Yes (HTN, hyperlipidemia,CAD, coronary stent) Hx Angina: Yes Hx Circulatory Problems: Yes Hx Congestive Heart Failure: Yes Hx Heart Attack: Yes Hx Hypercholesterolemia: Yes Hx Hypertension: Yes Hx Peripheral Edema: Yes Hx Peripheral Vascular Disease: Yes Other/Comment: Hyperlipidemia - PULMONARY Hx Respiratory Disorders: No Hx Chronic Obstructive Pulmonary Disease (COPD): No Hx Tuberculosis: No - NEUROLOGICAL Hx Neurological Disorder: Yes (CVA) HX Cerebrovascular Accident: Yes Hx Seizures: No - HEENT Hx HEENT Problems: No - RENAL Hx Chronic Kidney Disease: No Hx Renal Failure: No - ENDOCRINE/METABOLIC Hx Endocrine Disorders: Yes (DM) Hx Diabetes Mellitus Type 1: Yes Hx Diabetes Mellitus Type 2: Yes Hx Hypothyroidism: No - HEMATOLOGICAL/ONCOLOGICAL Hx Anemia: Yes Hx Blood Transfusions: Yes Hx Blood Transfusion Reaction: Yes - INTEGUMENTARY Hx Dermatological Problems: Yes Hx Cellulitis: Yes (ble) Other/Comment: Gangrene right 2nd toe - MUSCULOSKELETAL/RHEUMATOLOGICAL Hx Musculoskeletal Disorders: Yes (arthritis, back problems, hernated discs) Hx Arthritis: Yes Hx Back Pain: Yes Hx Degenerative Joint Disease: Yes Hx Falls: No Hx Herniated Disk: Yes Hx Osteomyelitis: Yes Hx Rheumatoid Arthritis: No Other/Comment: L charcot foot - GASTROINTESTINAL Hx Gastrointestinal Disorders: Yes - GENITOURINARY/GYNECOLOGICAL Hx Genitourinary Disorders: No Hx Sexually Transmitted Disorders: No Other/Comment: c section,ovarian cystectomy - PSYCHIATRIC Hx Psychophysiologic Disorder: Yes (anxiety, depression) Hx Anxiety: Yes Hx Depression: Yes Hx Emotional Abuse: No Hx Panic Symptoms: Yes Hx Physical Abuse: No Hx Substance Use: No - SURGICAL HISTORY Hx Surgeries: Yes Hx Amputation: Yes (right toes 2 years ago) Hx Appendectomy: Yes Hx Cardiac Catheterization: Yes (x1 stent) Hx Section: Yes (1996) Hx Coronary Stent: Yes Hx Orthopedic Surgery: Yes (Amputation toes right foot, 2 years ago) Hx Vascular Surgery: Yes (INSERTION OF STENT ON THE RIGHT LEG) Other/Comment: surgery L arm for compartmental syndrome. multiple foot surgeries. removal of ovaries - ANESTHESIA Hx Anesthesia: Yes Hx Anesthesia Reactions: Yes (CAN'T BREATH-ADMITTED TO ICU) Hx Malignant Hyperthermia: No Meds Allergies/Adverse Reactions: Allergies Allergy/AdvReac Type Severity Reaction Status Date / Time No Known Allergies Allergy Verified 03/17/18 04:21 - Medications Medications: Current Medications Acetaminophen (Tylenol 325mg Tab) 650 mg PO Q4 PRN PRN Reason: Pain, Mild (1-3) Albuterol/Ipratropium (Duoneb 3 Mg/0.5 Mg (3 Ml) Ud) 3 ml INH RQ6 PRN PRN Reason: Shortness of Breath Alprazolam (Xanax) 0.25 mg PO Q12 [facility] Stop: 04/05/18 10:16 Last Admin: 03/30/18 08:09 Dose: 0.25 mg Aspirin (Aspirin Chewable) 81 mg PO DAILY [facility] Last Admin: 03/30/18 08:12 Dose: 81 mg Atorvastatin Calcium (Lipitor) 40 mg PO HS [facility] Last Admin: 03/29/18 21:13 Dose: 40 mg Clopidogrel Bisulfate (Plavix) 75 mg PO DAILY [facility] Last Admin: 03/30/18 08:07 Dose: 75 mg Enalapril Maleate (Vasotec) 10 mg PO BID [facility] Last Admin: 03/30/18 08:25 Dose: 10 mg Enoxaparin Sodium (Lovenox) 100 mg SC Q12 [facility] PRN Reason: Protocol Last Admin: 03/30/18 08:07 Dose: 100 mg Hydromorphone HCl (Dilaudid) 1 mg IVP Q4 PRN PRN Reason: Pain, moderate (4-7) Last Admin: 03/30/18 12:52 Dose: 1 mg Piperacillin Sod/Tazobactam (Sod 2.25 gm/ Sodium Chloride) 100 mls @ 100 mls/ hr IVPB Q8 [facility] PRN Reason: Protocol Last Admin: 03/30/18 08:09 Dose: 100 mls/hr Vancomycin HCl 750 mg/ Sodium (Chloride) 250 mls @ 166.667 mls/hr IVPB Q12 [facility] PRN Reason: Protocol Insulin Detemir (Levemir) 70 units SC HS [facility] Last Admin: 03/29/18 21:16 Dose: 70 units Insulin Human Lispro (Humalog) 0 units SC ACHS [facility] Last Admin: 03/30/18 11:52 Dose: Not Given Insulin Human Lispro (Humalog) 30 units SC AC [facility] Last Admin: 03/30/18 11:53 Dose: 30 units Isosorbide Mononitrate (Imdur) 60 mg PO DAILY [facility] Last Admin: 03/30/18 08:07 Dose: 60 mg Metoprolol Succinate (Toprol Xl) 200 mg PO Q12 [facility] Last Admin: 03/30/18 08:25 Dose: 200 mg Morphine Sulfate (Morphine Extended Release Tab) 30 mg PO Q8 [facility] Ondansetron HCl (Zofran Inj) 4 mg IVP Q4 PRN PRN Reason: Nausea/Vomiting Last Admin: 03/29/18 14:00 Dose: 4 mg Oxycodone HCl (Oxycodone Immediate Release Tab) 30 mg PO Q6 PRN PRN Reason: Pain, moderate (4-7) Last Admin: 03/30/18 09:52 Dose: 30 mg Pantoprazole Sodium (Protonix Inj) 40 mg IVP DAILY [facility] Last Admin: 03/30/18 08:08 Dose: 40 mg Results - Vital Signs Recent Vital Signs: Last Vital Signs Temp 98.3 F 03/30/18 12:00 Pulse 72 03/30/18 12:00 Resp 17 03/30/18 12:00 BP 131/56 L 03/30/18 12:00 Pulse Ox 98 03/30/18 12:00 - Labs Result Diagrams: 03/30/18 04:25 03/30/18 04:25 Labs: Laboratory Results - last 24 hr 03/29/18 03/29/18 03/29/18 16:00 20:15 23:57 WBC RBC Hgb Hct MCV MCH MCHC RDW Plt Count MPV Neut % (Auto) Lymph % (Auto) [place] % (Auto) Eos % (Auto) Baso % (Auto) Neut # (Auto) Lymph # (Auto) [place] # (Auto) Eos # (Auto) Baso # (Auto) Sodium Potassium Chloride Carbon Dioxide Anion Gap BUN Creatinine Est GFR ( Amer) Est GFR (Non-Af Amer) POC Glucose (mg/dL) 321 H 274 H 220 H Random Glucose Calcium Phosphorus Magnesium Total Bilirubin AST ALT Alkaline Phosphatase Total Protein Albumin Globulin Albumin/Globulin Ratio 03/30/18 03/30/18 03/30/18 04:00 04:25 04:25 WBC 12.0 H RBC 3.26 L Hgb 8.8 L Hct 27.1 L MCV 83.2 MCH 27.0 MCHC 32.4 L RDW 17.0 H Plt Count 270 MPV 7.6 Neut % (Auto) 86.4 H Lymph % (Auto) 7.3 L [place] % (Auto) 5.6 Eos % (Auto) 0.5 Baso % (Auto) 0.2 Neut # (Auto) 10.3 H Lymph # (Auto) 0.9 L [place] # (Auto) 0.7 Eos # (Auto) 0.1 Baso # (Auto) 0.0 Sodium 141 Potassium 3.6 Chloride 103 Carbon Dioxide 33 H Anion Gap 9 L BUN 33 H Creatinine 1.1 Est GFR ( Amer) > 60 Est GFR (Non-Af Amer) 52 POC Glucose (mg/dL) 208 H Random Glucose 195 H Calcium 8.9 Phosphorus 2.8 Magnesium 2.3 Total Bilirubin 0.7 AST 26 ALT 19 Alkaline Phosphatase 93 Total Protein 6.9 Albumin 3.4 L Globulin 3.5 Albumin/Globulin Ratio 1.0 03/30/18 03/30/18 08:20 11:34 WBC RBC Hgb Hct MCV MCH MCHC RDW Plt Count MPV Neut % (Auto) Lymph % (Auto) [place] % (Auto) Eos % (Auto) Baso % (Auto) Neut # (Auto) Lymph # (Auto) [place] # (Auto) Eos # (Auto) Baso # (Auto) Sodium Potassium Chloride Carbon Dioxide Anion Gap BUN Creatinine Est GFR ( Amer) Est GFR (Non-Af Amer) POC Glucose (mg/dL) 183 H 258 H Random Glucose Calcium Phosphorus Magnesium Total Bilirubin AST ALT Alkaline Phosphatase Total Protein Albumin Globulin Albumin/Globulin Ratio
--- NOTE | 2018-03-30 19:07 | CP.PCM.PN ---
Subjective - Date & Time of Evaluation Date of Evaluation: 03/30/18 Time of Evaluation: 18:20 - Subjective Subjective: patient has no chest pain or dyspnea. foot pain is better controlled Objective - Vital Signs/Intake and Output Vital Signs (last 24 hours): Temp Pulse Resp BP Pulse Ox 97.9 F 75 16 139/59 L 100 03/30/18 16:00 03/30/18 18:00 03/30/18 18:00 03/30/18 18:00 03/30/18 18:00 Intake and Output: 03/30/18 03/31/18 18:59 06:59 Intake Total 200 Balance 200 - Medications Medications: Current Medications Acetaminophen (Tylenol 325mg Tab) 650 mg PO Q4 PRN PRN Reason: Pain, Mild (1-3) Albuterol/Ipratropium (Duoneb 3 Mg/0.5 Mg (3 Ml) Ud) 3 ml INH RQ6 PRN PRN Reason: Shortness of Breath Alprazolam (Xanax) 0.25 mg PO Q12 [facility] Stop: 04/05/18 10:16 Last Admin: 03/30/18 08:09 Dose: 0.25 mg Aspirin (Aspirin Chewable) 81 mg PO DAILY [facility] Last Admin: 03/30/18 08:12 Dose: 81 mg Atorvastatin Calcium (Lipitor) 40 mg PO HS [facility] Last Admin: 03/29/18 21:13 Dose: 40 mg Clopidogrel Bisulfate (Plavix) 75 mg PO DAILY [facility] Last Admin: 03/30/18 08:07 Dose: 75 mg Enalapril Maleate (Vasotec) 10 mg PO BID [facility] Last Admin: 03/30/18 17:03 Dose: 10 mg Enoxaparin Sodium (Lovenox) 100 mg SC Q12 [facility] PRN Reason: Protocol Last Admin: 03/30/18 08:07 Dose: 100 mg Hydromorphone HCl (Dilaudid) 1 mg IVP Q4 PRN PRN Reason: Pain, moderate (4-7) Last Admin: 03/30/18 12:52 Dose: 1 mg Piperacillin Sod/Tazobactam (Sod 2.25 gm/ Sodium Chloride) 100 mls @ 100 mls/ hr IVPB Q8 [facility] PRN Reason: Protocol Last Admin: 03/30/18 17:03 Dose: 100 mls/hr Vancomycin HCl 750 mg/ Sodium (Chloride) 250 mls @ 166.667 mls/hr IVPB Q12 [facility] PRN Reason: Protocol Insulin Detemir (Levemir) 70 units SC HS [facility] Last Admin: 03/29/18 21:16 Dose: 70 units Insulin Human Lispro (Humalog) 0 units SC ACHS [facility] Last Admin: 03/30/18 17:00 Dose: Not Given Insulin Human Lispro (Humalog) 30 units SC AC [facility] Last Admin: 03/30/18 17:39 Dose: Not Given Isosorbide Mononitrate (Imdur) 60 mg PO DAILY [facility] Last Admin: 03/30/18 08:07 Dose: 60 mg Metoprolol Succinate (Toprol Xl) 200 mg PO Q12 [facility] Last Admin: 03/30/18 08:25 Dose: 200 mg Morphine Sulfate (Morphine Extended Release Tab) 30 mg PO Q8 [facility] Ondansetron HCl (Zofran Inj) 4 mg IVP Q4 PRN PRN Reason: Nausea/Vomiting Last Admin: 03/29/18 14:00 Dose: 4 mg Oxycodone HCl (Oxycodone Immediate Release Tab) 30 mg PO Q6 PRN PRN Reason: Pain, moderate (4-7) Last Admin: 03/30/18 15:51 Dose: 30 mg Pantoprazole Sodium (Protonix Inj) 40 mg IVP DAILY [facility] Last Admin: 03/30/18 08:08 Dose: 40 mg - Labs Labs: 03/30/18 04:25 03/30/18 04:25 - Constitutional Appears: Non-toxic - Head Exam Head Exam: NORMAL INSPECTION - Eye Exam Eye Exam: Normal appearance - ENT Exam ENT Exam: Mucous Membranes Moist - Neck Exam Neck Exam: Full ROM - Respiratory Exam Respiratory Exam: NORMAL BREATHING PATTERN - Cardiovascular Exam Cardiovascular Exam: REGULAR RHYTHM - GI/Abdominal Exam GI & Abdominal Exam: Normal Bowel Sounds - Rectal Exam Rectal Exam: Deferred - Extremities Exam Extremities Exam: Pedal Edema - Back Exam Back Exam: NORMAL INSPECTION - Neurological Exam Neurological Exam: Alert - Psychiatric Exam Psychiatric exam: Normal Affect - Skin Skin Exam: Normal Color Assessment and Plan (1) NSTEMI (non-ST elevated myocardial infarction) Assessment & Plan: contnue medical therapy. Patient reamins hemodynamically stable Status: Acute (2) CAD (coronary artery disease) Assessment & Plan: ASA, betablocker plavix. Status: Chronic (3) Hypertension Assessment & Plan: betablocker Status: Chronic (4) Peripheral vascular disease Status: Chronic
--- NOTE | 2018-03-30 21:16 | PN ---
DATE: 03/30/2018 ENDOCRINOLOGY FOLLOWUP NOTE LOCATION: Room 425. SUBJECTIVE: This is a 52-year-old female with recent uncontrolled type 2 insulin-requiring diabetes, now being followed closely for metabolic management. Her glycemic levels are fluctuating but improved, and the glucose levels overnight have ranged from 183 to 208 and 258 mg/dL. Her chemistries today showed a BUN of 33, sodium 141, potassium 3.6, chloride 103, CO2 of 33, glucose 195, and creatinine 1.1. She underwent a recent local debridement of the left foot as noted. ASSESSMENT: This is a 52-year-old female with uncontrolled and decompensated type 2 insulin-requiring diabetes with recent marked hyperglycemic accelerations with concomitant left foot cellulitis, and osteomyelitis and is now being followed closely for metabolic management. She also has diabetic microvascular complications of retinopathy, polyneuropathy, and nephropathy with diabetic macrovascular complications of coronary artery disease and peripheral arterial disease and vasculopathy with a previous right transmetatarsal amputation as noted. PLAN OF MANAGEMENT: We will modify the current insulin dose regimen given in combination as a basal and bolus insulin regimen as ordered. We will increase her Humalog to 30 units subcu t.i.d. before meals to start today as ordered. We will continue the basal insulin given as Levemir at 70 units subcu at bedtime daily to start tonight. We will continue the low-dose correction scale using Humalog insulin as ordered. We will obtain serial chemistries and supplement accordingly as needed. We will follow. Yesika Vogel MD
[2018-03-30] MEDS: Insulin Detemir 100 Units/ml Inj SC SCH (21:56)
[2018-03-31] MEDS: Morphine 30 mg SR Tab PO SCH ×4 (04:09→20:59)
[2018-03-31 05:49] LABS: BLOOD UREA NITROGEN 30 mg/dl (7-17); CALCIUM 8.5 mg/dL (8.4-10.2); GFR NON-AFRICAN AMERICAN > 60
[2018-03-31 05:54] LABS: BASO % 0.5 % (0.0-2.0); EOS # 0.1 K/uL (0.0-0.7); EOS % 1.3 % (0.0-4.0); HEMOGLOBIN 8.3 g/dL (12.0-16.0); LYMPH % 11.4 % (20.0-40.0); MEAN CELL VOLUME 82.5 fl (81.0-99.0); MEAN CORPUSCULAR HEMOGLOBIN 27.5 pg (27.0-31.0); MEAN CORPUSCULAR HGB CONC 33.3 g/dL (33.0-37.0); MEAN PLATELET VOLUME 7.8 fl (7.2-11.7); MONO # 0.4 K/uL (0.0-0.8); MONO % 5.1 % (0.0-10.0); NEUT # 6.8 K/uL (1.8-7.0); NEUT % 81.7 % (50.0-75.0); RBC 3.01 Mil/uL (3.80-5.20); RED CELL DISTRIBUTION WIDTH 16.9 % (11.5-14.5); WHITE BLOOD COUNT 8.4 K/uL (4.8-10.8)
[2018-03-31] MEDS: Insulin Lispro (humaLOG) 100 Units/ml Inj SC SCH ×7 (07:41→22:30)
[2018-03-31] MEDS: Metoprolol Succinate 100 mg XL Tab PO SCH ×2 (08:43→21:18)
[2018-03-31] MEDS: Enoxaparin 100 mg Syringe SC SCH ×2 (08:44→21:18)
--- NOTE | 2018-03-31 09:00 | CP.PCM.PN ---
Subjective - Date & Time of Evaluation Date of Evaluation: 03/31/18 Time of Evaluation: 09:00 - Subjective Subjective: STILL HAS LEG/FOOT PAIN Objective - Vital Signs/Intake and Output Vital Signs (last 24 hours): Temp Pulse Resp BP Pulse Ox 98.6 F 70 16 147/69 98 03/31/18 08:00 03/31/18 08:43 03/31/18 08:00 03/31/18 08:43 03/31/18 08:00 Intake and Output: 03/31/18 03/31/18 06:59 18:59 Intake Total 350 Output Total 1500 Balance -1150 - Medications Medications: Current Medications Acetaminophen (Tylenol 325mg Tab) 650 mg PO Q4 PRN PRN Reason: Pain, Mild (1-3) Albuterol/Ipratropium (Duoneb 3 Mg/0.5 Mg (3 Ml) Ud) 3 ml INH RQ6 PRN PRN Reason: Shortness of Breath Alprazolam (Xanax) 0.25 mg PO Q12 [facility] Stop: 04/05/18 10:16 Last Admin: 03/31/18 08:42 Dose: 0.25 mg Aspirin (Aspirin Chewable) 81 mg PO DAILY [facility] Last Admin: 03/31/18 08:44 Dose: 81 mg Atorvastatin Calcium (Lipitor) 40 mg PO HS [facility] Last Admin: 03/30/18 21:55 Dose: 40 mg Clopidogrel Bisulfate (Plavix) 75 mg PO DAILY [facility] Last Admin: 03/31/18 08:55 Dose: 75 mg Enalapril Maleate (Vasotec) 10 mg PO BID [facility] Last Admin: 03/31/18 08:43 Dose: 10 mg Enoxaparin Sodium (Lovenox) 100 mg SC Q12 [facility] PRN Reason: Protocol Last Admin: 03/31/18 08:44 Dose: 100 mg Hydromorphone HCl (Dilaudid) 1 mg IVP Q4 PRN PRN Reason: Pain, moderate (4-7) Last Admin: 03/31/18 04:05 Dose: 1 mg Piperacillin Sod/Tazobactam (Sod 2.25 gm/ Sodium Chloride) 100 mls @ 100 mls/ hr IVPB Q8 [facility] PRN Reason: Protocol Last Admin: 03/31/18 08:45 Dose: 100 mls/hr Vancomycin HCl 750 mg/ Sodium (Chloride) 250 mls @ 166.667 mls/hr IVPB Q12 [facility] PRN Reason: Protocol Last Admin: 03/30/18 21:59 Dose: 166.667 mls/hr Insulin Detemir (Levemir) 70 units SC HS [facility] Last Admin: 03/30/18 21:56 Dose: 70 units Insulin Human Lispro (Humalog) 0 units SC ACHS [facility] Last Admin: 03/31/18 07:41 Dose: Not Given Insulin Human Lispro (Humalog) 30 units SC AC [facility] Last Admin: 03/30/18 17:39 Dose: Not Given Isosorbide Mononitrate (Imdur) 60 mg PO DAILY [facility] Last Admin: 03/31/18 08:55 Dose: 60 mg Metoprolol Succinate (Toprol Xl) 200 mg PO Q12 [facility] Last Admin: 03/31/18 08:43 Dose: 200 mg Morphine Sulfate (Morphine Extended Release Tab) 30 mg PO Q8@0400,1200,2000 [facility] Last Admin: 03/31/18 04:09 Dose: 30 mg Ondansetron HCl (Zofran Inj) 4 mg IVP Q4 PRN PRN Reason: Nausea/Vomiting Last Admin: 03/29/18 14:00 Dose: 4 mg Oxycodone HCl (Oxycodone Immediate Release Tab) 30 mg PO Q6 PRN PRN Reason: Pain, moderate (4-7) Last Admin: 03/30/18 21:53 Dose: 30 mg Pantoprazole Sodium (Protonix Inj) 40 mg IVP DAILY [facility] Last Admin: 03/31/18 08:44 Dose: 40 mg - Labs Labs: 03/31/18 04:20 03/31/18 04:20 - Constitutional Appears: In Acute Distress - Head Exam Head Exam: ATRAUMATIC, NORMAL INSPECTION, NORMOCEPHALIC - Eye Exam Eye Exam: EOMI, Normal appearance, PERRL Pupil Exam: NORMAL ACCOMODATION, PERRL - ENT Exam ENT Exam: Mucous Membranes Moist, Normal Exam - Neck Exam Neck Exam: Full ROM, Normal Inspection. absent: Lymphadenopathy - Respiratory Exam Respiratory Exam: Clear to Ausculation Bilateral, NORMAL BREATHING PATTERN - Cardiovascular Exam Cardiovascular Exam: REGULAR RHYTHM, +S1, +S2. absent: Murmur - GI/Abdominal Exam GI & Abdominal Exam: Soft, Normal Bowel Sounds. absent: Tenderness - Rectal Exam Rectal Exam: NORMAL INSPECTION - Extremities Exam Extremities Exam: Full ROM, Normal Capillary Refill, Normal Inspection, Tenderness. absent: Joint Swelling, Pedal Edema Additional comments: S/P L FOOT SURGERY S/P R TRANSMET AMPUTATION - Back Exam Back Exam: NORMAL INSPECTION - Neurological Exam Neurological Exam: Alert, Awake, CN II-XII Intact, Normal Gait, Oriented x3 - Psychiatric Exam Psychiatric exam: Normal Affect, Normal Mood - Skin Skin Exam: Dry, Intact, Normal Color, Warm Assessment and Plan - Assessment and Plan (Free Text) Assessment: CHARCOT DEFORMITY OF L FOOT CELLULITIS WITH OSTEOMYELITIS OF L FOOT DM HTN PVD S/P NSTEMI Plan: CONTINUE CURRENT RX WILL DISCUS FURTHER RX WITH PODIATRY
--- NOTE | 2018-03-31 09:05 | CP.PCM.PN ---
Subjective - Date & Time of Evaluation Date of Evaluation: 03/31/18 Time of Evaluation: 09:03 - Subjective Subjective: Podiatry progress note for Dr. Macdonald: 51 yo female seen and evaluated 3 days s/p left foot charcot neuroarthropathy reconstruction with external fixation. Patient is AAOx3 and NAD. She states that she is in pain on the outside of her foot but it is better controlled. She is breathing better according to nurses and was decreased in O2 from nasal cannula and is stable. Having trouble sleeping. She denies N/V/F/C/CP/SOB today. Objective - Vital Signs/Intake and Output Vital Signs (last 24 hours): Temp Pulse Resp BP Pulse Ox 98.6 F 70 16 147/69 98 03/31/18 08:00 03/31/18 08:43 03/31/18 08:00 03/31/18 08:43 03/31/18 08:00 Intake and Output: 03/31/18 03/31/18 06:59 18:59 Intake Total 350 Output Total 1500 Balance -1150 - Medications Medications: Current Medications Acetaminophen (Tylenol 325mg Tab) 650 mg PO Q4 PRN PRN Reason: Pain, Mild (1-3) Albuterol/Ipratropium (Duoneb 3 Mg/0.5 Mg (3 Ml) Ud) 3 ml INH RQ6 PRN PRN Reason: Shortness of Breath Alprazolam (Xanax) 0.25 mg PO Q12 [facility] Stop: 04/05/18 10:16 Last Admin: 03/31/18 08:42 Dose: 0.25 mg Aspirin (Aspirin Chewable) 81 mg PO DAILY [facility] Last Admin: 03/31/18 08:44 Dose: 81 mg Atorvastatin Calcium (Lipitor) 40 mg PO HS [facility] Last Admin: 03/30/18 21:55 Dose: 40 mg Clopidogrel Bisulfate (Plavix) 75 mg PO DAILY [facility] Last Admin: 03/31/18 08:55 Dose: 75 mg Enalapril Maleate (Vasotec) 10 mg PO BID [facility] Last Admin: 03/31/18 08:43 Dose: 10 mg Enoxaparin Sodium (Lovenox) 100 mg SC Q12 [facility] PRN Reason: Protocol Last Admin: 03/31/18 08:44 Dose: 100 mg Hydromorphone HCl (Dilaudid) 1 mg IVP Q4 PRN PRN Reason: Pain, moderate (4-7) Last Admin: 03/31/18 04:05 Dose: 1 mg Piperacillin Sod/Tazobactam (Sod 2.25 gm/ Sodium Chloride) 100 mls @ 100 mls/ hr IVPB Q8 [facility] PRN Reason: Protocol Last Admin: 03/31/18 08:45 Dose: 100 mls/hr Vancomycin HCl 750 mg/ Sodium (Chloride) 250 mls @ 166.667 mls/hr IVPB Q12 [facility] PRN Reason: Protocol Last Admin: 03/30/18 21:59 Dose: 166.667 mls/hr Insulin Detemir (Levemir) 70 units SC HS [facility] Last Admin: 03/30/18 21:56 Dose: 70 units Insulin Human Lispro (Humalog) 0 units SC ACHS [facility] Last Admin: 03/31/18 07:41 Dose: Not Given Insulin Human Lispro (Humalog) 30 units SC AC [facility] Last Admin: 03/30/18 17:39 Dose: Not Given Isosorbide Mononitrate (Imdur) 60 mg PO DAILY [facility] Last Admin: 03/31/18 08:55 Dose: 60 mg Metoprolol Succinate (Toprol Xl) 200 mg PO Q12 [facility] Last Admin: 03/31/18 08:43 Dose: 200 mg Morphine Sulfate (Morphine Extended Release Tab) 30 mg PO Q8@0400,1200,2000 [facility] Last Admin: 03/31/18 08:58 Dose: 30 mg Ondansetron HCl (Zofran Inj) 4 mg IVP Q4 PRN PRN Reason: Nausea/Vomiting Last Admin: 03/29/18 14:00 Dose: 4 mg Oxycodone HCl (Oxycodone Immediate Release Tab) 30 mg PO Q6 PRN PRN Reason: Pain, moderate (4-7) Last Admin: 03/30/18 21:53 Dose: 30 mg Pantoprazole Sodium (Protonix Inj) 40 mg IVP DAILY [facility] Last Admin: 03/31/18 08:44 Dose: 40 mg - Labs Labs: 03/31/18 04:20 03/31/18 04:20 - Constitutional Appears: Well, Non-toxic, No Acute Distress - Extremities Exam Additional comments: Vasc: DP and PT pulses palpable 1/4 on the right but not assessed due to obstruction from external fixation device on her left foot, cap refill on left foot <3 to all digits, mild edema present about the surgery sites with pin placement Derm: dressing clean and dry, minimal drainage, suture sites are well coapted with no signs of dehiscense noted, no malodor or pus, pin sites are clean with minimal sanguinous drainage, no erythema and mild edema noted, no clinical signs of infection Ortho: pain on palpation about the left lower leg and surgery sites; external fixation limits any motion at the left lower extremity Neuro: protective sensation absent bilaterally - Neurological Exam Neurological Exam: Alert, Awake, Oriented x3 Assessment and Plan - Assessment and Plan (Free Text) Assessment: 52 yo patient seen at bedside 3 days s/p left foot charcot neuroarthropathy reconstruction using external fixation device Plan: Patient seen and evaluated Discussed in detail with Dr. Macdonald Charts and labs reviewed: afrebrile and absent leukocytosis Patients dressings removed, pin sites cleaned thoroughly with saline and redressed with xeroform and DSD and incision sites dorsally dressed with betadine and dsd Left ankle and foot x-rays taken: external fixator device obscures ankle with no actue fracture or dislocation appreciated, widening of th superolateral ankle mortise question, clinically correlate Patient demonstrates awareness of staged procedure for charcot reconstruction and further surgery in about one week assuming health of patient is stable Dr. Hines consulted - patient participated in PT and was able to tolerate, pain continuing to be controlled, stable Monitor blood glucose level, last measurement 208 Cardiology - hemodynamically stable Medicine - continue treatment regimine - discuss plan further with podiatry Continue to follow ID recs on antibiotics - vanomycin, zosyn Patient ok to be transferred from ICU up to [facility] floor Podiatry will continue to monitor patient while in house
[2018-03-31] MEDS: oxyCODONE 10 mg Immediate Release Tab PO PRN ×3 (09:13→21:32)
--- NOTE | 2018-03-31 18:34 | PN ---
DATE: 03/31/2018 ENDO FOLLOWUP NOTE LOCATION: In room 425, ICU. SUBJECTIVE: This is a 52-year-old female with recent uncontrolled type 2 insulin-requiring diabetes, who underwent a recent left foot resection and debridement, and is now being followed closely for metabolic management. Her glycemic levels are fluctuating, but improved and the glucose values overnight have ranged from 188 to 207 and 223 mg/dL. LABORATORY DATA: Her latest chemistry showed a BUN of 30, sodium 140, potassium 3.9, chloride 101, CO2 of 31, glucose 208, and creatinine 0.9. ASSESSMENT AND PLAN: So at this time, we will continue the same basal and bolus insulin regimen to allow for dose equilibration and keep her on the Humalog given as 30 units subcutaneously t.i.d. before meals as ordered. We will also continue the Levemir given as 70 units subcutaneously at bedtime daily as given. We will titrate incrementally as indicated to optimize metabolic control. We will obtain serial chemistries and supplement accordingly as needed. We will follow. Yesika Vogel MD
[2018-03-31] MEDS: Insulin Detemir 100 Units/ml Inj SC SCH (21:19)
[2018-04-01] MEDS: Morphine 30 mg SR Tab PO SCH ×3 (03:58→20:34)
[2018-04-01] MEDS: oxyCODONE 10 mg Immediate Release Tab PO PRN ×3 (04:17→17:54)
--- NOTE | 2018-04-01 08:21 | CP.PCM.PN ---
Subjective - Date & Time of Evaluation Date of Evaluation: 04/01/18 Time of Evaluation: 08:19 - Subjective Subjective: Podiatry progress note for Dr. Macdonald: 51 yo female seen and evaluated 4 days s/p left foot charcot neuroarthropathy reconstruction with external fixation. Patient is AAOx3 and NAD. She states that she is in pain on the outside of her ankle but it is better controlled. She is breathing better according to nurses and was decreased in O2 from nasal cannula and is stable. Patient was moved from ICU to the sixth floor and states she feels better now. Still Having trouble sleeping. Admits to decreased appeitite. She denies N/V/F/C/CP/SOB today. Objective - Vital Signs/Intake and Output Vital Signs (last 24 hours): Temp Pulse Resp BP Pulse Ox 98.5 F 73 19 188/65 H 95 04/01/18 08:12 04/01/18 08:12 04/01/18 08:12 04/01/18 08:12 04/01/18 08:12 - Medications Medications: Current Medications Acetaminophen (Tylenol 325mg Tab) 650 mg PO Q4 PRN PRN Reason: Pain, Mild (1-3) Albuterol/Ipratropium (Duoneb 3 Mg/0.5 Mg (3 Ml) Ud) 3 ml INH RQ6 PRN PRN Reason: Shortness of Breath Alprazolam (Xanax) 0.25 mg PO Q12 [facility] Stop: 04/05/18 10:16 Last Admin: 03/31/18 21:16 Dose: 0.25 mg Aspirin (Aspirin Chewable) 81 mg PO DAILY [facility] Last Admin: 03/31/18 08:44 Dose: 81 mg Atorvastatin Calcium (Lipitor) 40 mg PO HS [facility] Last Admin: 03/31/18 21:19 Dose: 40 mg Clopidogrel Bisulfate (Plavix) 75 mg PO DAILY [facility] Last Admin: 03/31/18 08:55 Dose: 75 mg Enalapril Maleate (Vasotec) 10 mg PO BID [facility] Last Admin: 03/31/18 18:11 Dose: 10 mg Enoxaparin Sodium (Lovenox) 100 mg SC Q12 [facility] PRN Reason: Protocol Last Admin: 03/31/18 21:18 Dose: 100 mg Hydromorphone HCl (Dilaudid) 1 mg IVP Q4 PRN PRN Reason: Pain, moderate (4-7) Last Admin: 04/01/18 06:59 Dose: 1 mg Piperacillin Sod/Tazobactam (Sod 2.25 gm/ Sodium Chloride) 100 mls @ 100 mls/ hr IVPB Q8 [facility] PRN Reason: Protocol Last Admin: 04/01/18 01:55 Dose: 100 mls/hr Vancomycin HCl 750 mg/ Sodium (Chloride) 250 mls @ 166.667 mls/hr IVPB Q12 [facility] PRN Reason: Protocol Last Admin: 03/31/18 21:17 Dose: 166.667 mls/hr Insulin Detemir (Levemir) 70 units SC HS [facility] Last Admin: 03/31/18 21:19 Dose: 70 units Insulin Human Lispro (Humalog) 0 units SC ACHS [facility] Last Admin: 03/31/18 22:30 Dose: Not Given Insulin Human Lispro (Humalog) 30 units SC AC [facility] Last Admin: 03/31/18 18:09 Dose: 30 units Isosorbide Mononitrate (Imdur) 60 mg PO DAILY [facility] Last Admin: 03/31/18 08:55 Dose: 60 mg Metoprolol Succinate (Toprol Xl) 200 mg PO Q12 [facility] Last Admin: 03/31/18 21:18 Dose: 200 mg Morphine Sulfate (Morphine Extended Release Tab) 30 mg PO Q8@0400,1200,2000 [facility] Last Admin: 04/01/18 03:58 Dose: 30 mg Ondansetron HCl (Zofran Inj) 4 mg IVP Q4 PRN PRN Reason: Nausea/Vomiting Last Admin: 03/29/18 14:00 Dose: 4 mg Oxycodone HCl (Oxycodone Immediate Release Tab) 30 mg PO Q6 PRN PRN Reason: Pain, moderate (4-7) Last Admin: 04/01/18 04:17 Dose: 30 mg Pantoprazole Sodium (Protonix Inj) 40 mg IVP DAILY [facility] Last Admin: 03/31/18 08:44 Dose: 40 mg - Labs Labs: 03/31/18 04:20 03/31/18 04:20 - Constitutional Appears: Well, Non-toxic, No Acute Distress - Head Exam Head Exam: ATRAUMATIC, NORMOCEPHALIC - Extremities Exam Additional comments: Vasc: DP and PT pulses palpable 1/4 on the right but not assessed due to obstruction from external fixation device on her left foot, cap refill on left foot <3 to all digits, mild edema present about the surgery sites with pin placement Derm: dressing clean and dry, minimal drainage, suture sites are well coapted with no signs of dehiscense noted, no malodor or pus, pin sites are clean with minimal sanguinous drainage, no erythema and mild edema noted, no clinical signs of infection Ortho: pain on palpation about the left lower leg and surgery sites; external fixation limits any motion at the left lower extremity Neuro: protective sensation absent bilaterally - Neurological Exam Neurological Exam: Alert, Awake, Oriented x3 - Psychiatric Exam Psychiatric exam: Normal Affect, Normal Mood - Skin Skin Exam: Normal Color Assessment and Plan - Assessment and Plan (Free Text) Assessment: 52 yo patient seen at bedside 3 days s/p left foot charcot neuroarthropathy reconstruction using external fixation device Plan: Patient seen and evaluated Discussed in detail with Dr. Macdonald Charts and labs reviewed: afrebrile and absent leukocytosis Patients dressings removed, pin sites cleaned thoroughly with saline and redressed with xeroform and DSD and incision sites dorsally dressed with betadine and dsd Left ankle and foot x-rays taken: external fixator device obscures ankle with no actue fracture or dislocation appreciated, widening of th superolateral ankle mortise question, clinically correlate Patient demonstrates awareness of staged procedure for charcot reconstruction and further surgery in about one week assuming health of patient is stable Dr. Hines consulted - patient participated in PT and was able to tolerate, pain continuing to be controlled, stable Monitor blood glucose level, last measurement 208 Cardiology - hemodynamically stable Medicine - continue treatment regimine - discuss plan further with podiatry Continue to follow ID recs on antibiotics - vanomycin, zosyn Patient ok to be transferred to [facility] floor Podiatry will continue to monitor patient while in house
[2018-04-01] MEDS: Insulin Lispro (humaLOG) 100 Units/ml Inj SC SCH ×7 (09:17→22:17)
[2018-04-01] MEDS: Enoxaparin 100 mg Syringe SC SCH ×2 (09:19→20:35)
[2018-04-01] MEDS: Metoprolol Succinate 100 mg XL Tab PO SCH ×2 (09:20→21:30)
--- NOTE | 2018-04-01 11:11 | CP.PCM.PN ---
Subjective - Date & Time of Evaluation Date of Evaluation: 04/01/18 Time of Evaluation: 11:11 - Subjective Subjective: ID note- Patient seen and examined today in med-surg floor. She still c/o pain in her left foot surgical site. She denies any fever or chills but c/o nausea today. denies any diarrhea. Objective - Vital Signs/Intake and Output Vital Signs (last 24 hours): Temp Pulse Resp BP Pulse Ox 98.5 F 73 19 188/65 H 95 04/01/18 08:12 04/01/18 08:12 04/01/18 08:12 04/01/18 08:12 04/01/18 08:12 - Medications Medications: Current Medications Acetaminophen (Tylenol 325mg Tab) 650 mg PO Q4 PRN PRN Reason: Pain, Mild (1-3) Albuterol/Ipratropium (Duoneb 3 Mg/0.5 Mg (3 Ml) Ud) 3 ml INH RQ6 PRN PRN Reason: Shortness of Breath Alprazolam (Xanax) 0.25 mg PO Q12 [facility] Stop: 04/05/18 10:16 Last Admin: 04/01/18 09:24 Dose: 0.25 mg Aspirin (Aspirin Chewable) 81 mg PO DAILY [facility] Last Admin: 04/01/18 09:16 Dose: 81 mg Atorvastatin Calcium (Lipitor) 40 mg PO HS [facility] Last Admin: 03/31/18 21:19 Dose: 40 mg Clopidogrel Bisulfate (Plavix) 75 mg PO DAILY [facility] Last Admin: 04/01/18 09:19 Dose: 75 mg Enalapril Maleate (Vasotec) 10 mg PO BID [facility] Last Admin: 04/01/18 09:21 Dose: 10 mg Enoxaparin Sodium (Lovenox) 100 mg SC Q12 [facility] PRN Reason: Protocol Last Admin: 04/01/18 09:19 Dose: 100 mg Hydromorphone HCl (Dilaudid) 1 mg IVP Q4 PRN PRN Reason: Pain, moderate (4-7) Last Admin: 04/01/18 06:59 Dose: 1 mg Piperacillin Sod/Tazobactam (Sod 2.25 gm/ Sodium Chloride) 100 mls @ 100 mls/ hr IVPB Q8 [facility] PRN Reason: Protocol Last Admin: 04/01/18 09:21 Dose: 100 mls/hr Vancomycin HCl 750 mg/ Sodium (Chloride) 250 mls @ 166.667 mls/hr IVPB Q12 [facility] PRN Reason: Protocol Last Admin: 03/31/18 21:17 Dose: 166.667 mls/hr Insulin Detemir (Levemir) 70 units SC HS [facility] Last Admin: 03/31/18 21:19 Dose: 70 units Insulin Human Lispro (Humalog) 0 units SC ACHS [facility] Last Admin: 04/01/18 09:17 Dose: Not Given Insulin Human Lispro (Humalog) 30 units SC AC [facility] Last Admin: 04/01/18 09:18 Dose: Not Given Isosorbide Mononitrate (Imdur) 60 mg PO DAILY [facility] Last Admin: 04/01/18 09:18 Dose: 60 mg Metoprolol Succinate (Toprol Xl) 200 mg PO Q12 [facility] Last Admin: 04/01/18 09:20 Dose: 200 mg Morphine Sulfate (Morphine Extended Release Tab) 30 mg PO Q8@0400,1200,2000 [facility] Last Admin: 04/01/18 03:58 Dose: 30 mg Ondansetron HCl (Zofran Inj) 4 mg IVP Q4 PRN PRN Reason: Nausea/Vomiting Last Admin: 04/01/18 09:22 Dose: 4 mg Oxycodone HCl (Oxycodone Immediate Release Tab) 30 mg PO Q6 PRN PRN Reason: Pain, moderate (4-7) Last Admin: 04/01/18 04:17 Dose: 30 mg Pantoprazole Sodium (Protonix Inj) 40 mg IVP DAILY [facility] Last Admin: 04/01/18 09:19 Dose: 40 mg - Labs Labs: - Additional Findings Additional findings: - Constitutional Appears: No Acute Distress - Head Exam Head Exam: ATRAUMATIC - Eye Exam Eye Exam: EOMI - ENT Exam ENT Exam: Normal Oropharynx - Neck Exam Neck exam: Positive for: Full Rom - Respiratory Exam Additional comments: good breath sounds heard b/l no wheezing - Cardiovascular Exam Cardiovascular Exam: RRR, +S1, +S2 - GI/Abdominal Exam GI & Abdominal Exam: Normal Bowel Sounds, Soft Additional comments: NT, ND - Extremities Exam Additional comments: right foot TMA (old) left foot in post surgical dressing and external fixation in place - Neurological Exam Neurological exam: Alert, Oriented x 3 Laboratory Results - last 72 hr 03/29/18 03/29/18 03/29/18 13:00 14:05 16:00 WBC RBC Hgb Hct MCV MCH MCHC RDW Plt Count MPV Neut % (Auto) Lymph % (Auto) [place] % (Auto) Eos % (Auto) Baso % (Auto) Neut # (Auto) Lymph # (Auto) [place] # (Auto) Eos # (Auto) Baso # (Auto) ESR Sodium Potassium Chloride Carbon Dioxide Anion Gap BUN Creatinine Est GFR ( Amer) Est GFR (Non-Af Amer) POC Glucose (mg/dL) 375 H 321 H Random Glucose Calcium Phosphorus Magnesium Total Bilirubin AST ALT Alkaline Phosphatase Troponin I 0.3740 H* Total Protein Albumin Globulin Albumin/Globulin Ratio 03/29/18 03/29/18 03/30/18 20:15 23:57 04:00 WBC RBC Hgb Hct MCV MCH MCHC RDW Plt Count MPV Neut % (Auto) Lymph % (Auto) [place] % (Auto) Eos % (Auto) Baso % (Auto) Neut # (Auto) Lymph # (Auto) [place] # (Auto) Eos # (Auto) Baso # (Auto) ESR Sodium Potassium Chloride Carbon Dioxide Anion Gap BUN Creatinine Est GFR ( Amer) Est GFR (Non-Af Amer) POC Glucose (mg/dL) 274 H 220 H 208 H Random Glucose Calcium Phosphorus Magnesium Total Bilirubin AST ALT Alkaline Phosphatase Troponin I Total Protein Albumin Globulin Albumin/Globulin Ratio 03/30/18 03/30/18 03/30/18 04:25 04:25 08:20 WBC 12.0 H RBC 3.26 L Hgb 8.8 L Hct 27.1 L MCV 83.2 MCH 27.0 MCHC 32.4 L RDW 17.0 H Plt Count 270 MPV 7.6 Neut % (Auto) 86.4 H Lymph % (Auto) 7.3 L [place] % (Auto) 5.6 Eos % (Auto) 0.5 Baso % (Auto) 0.2 Neut # (Auto) 10.3 H Lymph # (Auto) 0.9 L [place] # (Auto) 0.7 Eos # (Auto) 0.1 Baso # (Auto) 0.0 ESR Sodium 141 Potassium 3.6 Chloride 103 Carbon Dioxide 33 H Anion Gap 9 L BUN 33 H Creatinine 1.1 Est GFR ( Amer) > 60 Est GFR (Non-Af Amer) 52 POC Glucose (mg/dL) 183 H Random Glucose 195 H Calcium 8.9 Phosphorus 2.8 Magnesium 2.3 Total Bilirubin 0.7 AST 26 ALT 19 Alkaline Phosphatase 93 Troponin I Total Protein 6.9 Albumin 3.4 L Globulin 3.5 Albumin/Globulin Ratio 1.0 03/30/18 03/30/18 03/30/18 11:34 16:42 18:31 WBC RBC Hgb Hct MCV MCH MCHC RDW Plt Count MPV Neut % (Auto) Lymph % (Auto) [place] % (Auto) Eos % (Auto) Baso % (Auto) Neut # (Auto) Lymph # (Auto) [place] # (Auto) Eos # (Auto) Baso # (Auto) ESR > 120 H Sodium Potassium Chloride Carbon Dioxide Anion Gap BUN Creatinine Est GFR ( Amer) Est GFR (Non-Af Amer) POC Glucose (mg/dL) 258 H 104 Random Glucose Calcium Phosphorus Magnesium Total Bilirubin AST ALT Alkaline Phosphatase Troponin I Total Protein Albumin Globulin Albumin/Globulin Ratio 03/30/18 03/31/18 03/31/18 20:57 04:20 04:20 WBC 8.4 RBC 3.01 L Hgb 8.3 L Hct 24.9 L MCV 82.5 MCH 27.5 MCHC 33.3 RDW 16.9 H Plt Count 219 MPV 7.8 Neut % (Auto) 81.7 H Lymph % (Auto) 11.4 L [place] % (Auto) 5.1 Eos % (Auto) 1.3 Baso % (Auto) 0.5 Neut # (Auto) 6.8 Lymph # (Auto) 1.0 [place] # (Auto) 0.4 Eos # (Auto) 0.1 Baso # (Auto) 0.0 ESR Sodium 140 Potassium 3.9 Chloride 101 Carbon Dioxide 31 H Anion Gap 12 BUN 30 H Creatinine 0.9 Est GFR ( Amer) > 60 Est GFR (Non-Af Amer) > 60 POC Glucose (mg/dL) 223 H Random Glucose 208 H Calcium 8.5 Phosphorus Magnesium Total Bilirubin AST ALT Alkaline Phosphatase Troponin I Total Protein Albumin Globulin Albumin/Globulin Ratio 03/31/18 03/31/18 03/31/18 04:46 11:19 16:16 WBC RBC Hgb Hct MCV MCH MCHC RDW Plt Count MPV Neut % (Auto) Lymph % (Auto) [place] % (Auto) Eos % (Auto) Baso % (Auto) Neut # (Auto) Lymph # (Auto) [place] # (Auto) Eos # (Auto) Baso # (Auto) ESR Sodium Potassium Chloride Carbon Dioxide Anion Gap BUN Creatinine Est GFR ( Amer) Est GFR (Non-Af Amer) POC Glucose (mg/dL) 207 H 188 H 238 H Random Glucose Calcium Phosphorus Magnesium Total Bilirubin AST ALT Alkaline Phosphatase Troponin I Total Protein Albumin Globulin Albumin/Globulin Ratio 03/31/18 04/01/18 04/01/18 21:07 05:21 10:51 WBC RBC Hgb Hct MCV MCH MCHC RDW Plt Count MPV Neut % (Auto) Lymph % (Auto) [place] % (Auto) Eos % (Auto) Baso % (Auto) Neut # (Auto) Lymph # (Auto) [place] # (Auto) Eos # (Auto) Baso # (Auto) ESR Sodium Potassium Chloride Carbon Dioxide Anion Gap BUN Creatinine Est GFR ( Amer) Est GFR (Non-Af Amer) POC Glucose (mg/dL) 223 H 139 H 197 H Random Glucose Calcium Phosphorus Magnesium Total Bilirubin AST ALT Alkaline Phosphatase Troponin I Total Protein Albumin Globulin Albumin/Globulin Ratio Microbiology 03/28/18 05:00 Nose MRSA Culture (Admit) - Final MRSA NOT DETECTED Microbiology 03/17/18 05:30 Urine Urine Culture - Final No Growth (<1,000 CFU/ML) 03/17/18 00:08 Foot - Left Gram Stain - Final 03/17/18 00:08 Foot - Left Wound Culture - Final Corynebacterium Species 03/17/18 00:05 Blood Blood Culture - Final 03/17/18 00:05 Blood Gram Stain - Final NO GROWTH AFTER 5 DAYS TEST NOT PERFORMED 03/16/18 00:25 Blood Blood Culture - Final 03/16/18 00:25 Blood Gram Stain - Final NO GROWTH AFTER 5 DAYS TEST NOT PERFORMED Assessment and Plan (1) Acute pulmonary edema Status: Acute (2) Diabetes mellitus with hyperglycemia Status: Chronic (3) Charcot's joint arthropathy in type 2 diabetes mellitus Status: Acute (4) Diabetic foot ulcer Status: Acute - Assessment and Plan (Free Text) Assessment: A/P- 52 year old female with CAD, HTN, DM II was originally admitted with left plantar foot open wound and surrounding erythema . s/p left charcot foot surgery with external fixation POD #4. afebrile leukocytosis has resolved. blood cx- neg x 2 foot wound cx- corynebacterium Initial CT report- ? acute or chronic Om as per report High ESR plan- advise to continue with renal dose zosyn. day #15 completed 9 days of Iv daptomycin , switched to IV vancomycin 3 days ago since renal function much improved. keep vanco trough <15. awaiting podiatry decision regarding debridement of necrotic bone for the ? Om seen in original CT of left foot. all above d/w patient and she verbalizes full understanding of all above and agrees with above plan of care,
--- NOTE | 2018-04-01 13:21 | CP.PCM.PN ---
Subjective - Date & Time of Evaluation Date of Evaluation: 04/01/18 Time of Evaluation: 13:21 - Subjective Subjective: LESS L LEG/FOOT PAIN C/O CONSTIPATION Objective - Vital Signs/Intake and Output Vital Signs (last 24 hours): Temp Pulse Resp BP Pulse Ox 98.5 F 73 19 188/65 H 95 04/01/18 08:12 04/01/18 08:12 04/01/18 08:12 04/01/18 08:12 04/01/18 08:12 - Medications Medications: Current Medications Acetaminophen (Tylenol 325mg Tab) 650 mg PO Q4 PRN PRN Reason: Pain, Mild (1-3) Albuterol/Ipratropium (Duoneb 3 Mg/0.5 Mg (3 Ml) Ud) 3 ml INH RQ6 PRN PRN Reason: Shortness of Breath Alprazolam (Xanax) 0.25 mg PO Q12 [facility] Stop: 04/05/18 10:16 Last Admin: 04/01/18 09:24 Dose: 0.25 mg Aspirin (Aspirin Chewable) 81 mg PO DAILY [facility] Last Admin: 04/01/18 09:16 Dose: 81 mg Atorvastatin Calcium (Lipitor) 40 mg PO HS [facility] Last Admin: 03/31/18 21:19 Dose: 40 mg Clopidogrel Bisulfate (Plavix) 75 mg PO DAILY [facility] Last Admin: 04/01/18 09:19 Dose: 75 mg Enalapril Maleate (Vasotec) 10 mg PO BID [facility] Last Admin: 04/01/18 09:21 Dose: 10 mg Enoxaparin Sodium (Lovenox) 100 mg SC Q12 [facility] PRN Reason: Protocol Last Admin: 04/01/18 09:19 Dose: 100 mg Hydromorphone HCl (Dilaudid) 1 mg IVP Q4 PRN PRN Reason: Pain, moderate (4-7) Last Admin: 04/01/18 06:59 Dose: 1 mg Piperacillin Sod/Tazobactam (Sod 2.25 gm/ Sodium Chloride) 100 mls @ 100 mls/ hr IVPB Q8 [facility] PRN Reason: Protocol Last Admin: 04/01/18 09:21 Dose: 100 mls/hr Vancomycin HCl 750 mg/ Sodium (Chloride) 250 mls @ 166.667 mls/hr IVPB Q12 [facility] PRN Reason: Protocol Last Admin: 04/01/18 11:25 Dose: 166.667 mls/hr Insulin Detemir (Levemir) 70 units SC HS [facility] Last Admin: 03/31/18 21:19 Dose: 70 units Insulin Human Lispro (Humalog) 0 units SC ACHS [facility] Last Admin: 04/01/18 09:17 Dose: Not Given Insulin Human Lispro (Humalog) 30 units SC AC [facility] Last Admin: 04/01/18 09:18 Dose: Not Given Isosorbide Mononitrate (Imdur) 60 mg PO DAILY [facility] Last Admin: 04/01/18 09:18 Dose: 60 mg Lactulose (Enulose) 10 gm PO DAILY PRN PRN Reason: Constipation Metoprolol Succinate (Toprol Xl) 200 mg PO Q12 [facility] Last Admin: 04/01/18 09:20 Dose: 200 mg Morphine Sulfate (Morphine Extended Release Tab) 30 mg PO Q8@0400,1200,2000 [facility] Last Admin: 04/01/18 11:26 Dose: 30 mg Ondansetron HCl (Zofran Inj) 4 mg IVP Q4 PRN PRN Reason: Nausea/Vomiting Last Admin: 04/01/18 09:22 Dose: 4 mg Oxycodone HCl (Oxycodone Immediate Release Tab) 30 mg PO Q6 PRN PRN Reason: Pain, moderate (4-7) Last Admin: 04/01/18 11:29 Dose: 30 mg Pantoprazole Sodium (Protonix Inj) 40 mg IVP DAILY [facility] Last Admin: 04/01/18 09:19 Dose: 40 mg - Labs Labs: 03/31/18 04:20 03/31/18 04:20 - Constitutional Appears: Chronically Ill - Head Exam Head Exam: ATRAUMATIC, NORMAL INSPECTION, NORMOCEPHALIC - Eye Exam Eye Exam: EOMI, Normal appearance, PERRL Pupil Exam: NORMAL ACCOMODATION, PERRL - ENT Exam ENT Exam: Mucous Membranes Moist, Normal Exam - Neck Exam Neck Exam: Full ROM, Normal Inspection. absent: Lymphadenopathy - Respiratory Exam Respiratory Exam: Clear to Ausculation Bilateral, NORMAL BREATHING PATTERN - Cardiovascular Exam Cardiovascular Exam: REGULAR RHYTHM, +S1, +S2. absent: Murmur - GI/Abdominal Exam GI & Abdominal Exam: Soft, Normal Bowel Sounds. absent: Tenderness - Rectal Exam Rectal Exam: NORMAL INSPECTION - Extremities Exam Extremities Exam: Tenderness. absent: Joint Swelling, Pedal Edema - Back Exam Back Exam: NORMAL INSPECTION - Neurological Exam Neurological Exam: Alert, Awake, CN II-XII Intact, Normal Gait, Oriented x3 - Psychiatric Exam Psychiatric exam: Normal Affect, Normal Mood - Skin Skin Exam: Dry, Intact, Normal Color, Warm Assessment and Plan - Assessment and Plan (Free Text) Assessment: S/P L FOOT SURGERY DM HTN OSTEOMYELITIS OF L LEG/FOOT Plan: CONTINUE RX ORDERED
--- NOTE | 2018-04-01 21:06 | PN ---
DATE: 04/01/2018 ENDO FOLLOWUP NOTE LOCATION: In room 660. SUBJECTIVE: This is a 52-year-old female with recent uncontrolled type 2 insulin-requiring diabetes, now being followed closely for metabolic management. Her glycemic levels are fluctuating, but much improved at this time and the glucose values have ranged from 139 to 197 and 223 mg/dL. LABORATORY DATA: Her latest chemistry showed a BUN of 30, sodium 140, potassium 3.9, chloride 101, CO2 of 31, glucose 208, and creatinine 0.9. ASSESSMENT AND PLAN: So at this time, we will continue the modified basal and bolus insulin regimen to allow for dose equilibration and keep her on the Humalog given as 30 units subcutaneously t.i.d. before meals as ordered. We will continue also the basal insulin given as Levemir at 70 units subcutaneously at bedtime daily as given. We will titrate incrementally as indicated to optimize metabolic control. We will obtain serial chemistries and supplement accordingly as needed. We will follow. Yesika Vogel MD
[2018-04-01] MEDS: Insulin Detemir 100 Units/ml Inj SC SCH (22:21)
--- NOTE | 2018-04-01 22:26 | CP.PCM.PCO ---
Physician Communication Note - Physician Communication Note Physician Communication Note: paged by nurse, patient with persistent left epistaxis Assessment/Plan - Assessment and Plan (Free Text) Assessment: Patient seen and examined at bedside, with moderate persistent left epistaxis, patient mildy anxious, in no acute distress. Attempted to stop bleeding by applying tissue tampons, bleeding decreased slightly but persisted. -obtained Rapid Rhino Nasal packing, size 4.5cm-unilateral without airway, soaked device in sterile water, inserted device into left nostril without difficulty, inflated balloon, epistaxis controlled/stopped -patient tolerated procedure well -reassessed after 15-20 minutes and reinflated slightly -discussed with patient and nurse at bedside that removal of device should occur within 24-72hrs Jeanne Zaman M.D. PGY3 - Date & Time Date: 04/01/18 Time: 22:15
[2018-04-02] MEDS: oxyCODONE 10 mg Immediate Release Tab PO PRN ×3 (00:05→17:35)
[2018-04-02] MEDS: Morphine 30 mg SR Tab PO SCH ×3 (04:15→20:27)
[2018-04-02] MEDS: Enoxaparin 100 mg Syringe SC SCH (05:45)
[2018-04-02] MEDS: Insulin Lispro (humaLOG) 100 Units/ml Inj SC SCH ×7 (07:30→21:14)
[2018-04-02] MEDS: Metoprolol Succinate 100 mg XL Tab PO SCH ×2 (08:08→20:24)
[2018-04-02] MEDS ORDERED: Labetalol 5 mg/ml Inj 20ML IVP STA (09:42)
[2018-04-02] MEDS ORDERED: Labetalol 5mg/ml (4ml) ONE (09:44)
--- NOTE | 2018-04-02 10:09 | PCM.RRT ---
[employer] Nurse Assessment - Situation [employer] Responder Arrival Time: 09:25 Location: 6s Room Number: 660-2 [employer] Reason for Call: Hypertension [employer] Called By: RN - IV IV Inserted during [employer]ATOR?: No - Respiratory Oxygen Delivery Method: Room Air Received Nebulizer Treatments: No Was the Patient Ventilated with Bag/Mask 100% O2?: No Secretions Suctioned?: No Was the Patient Intubated?: No - Ventilator Settings FIO2 (% Oxygen): 50 - Medication Medications Administered During [employer]: hydralazine 20mg iv. dilaudid 1mg iv. labetalol 10mg iv - Diagnostic Test Ordered EKG: No Chest X-Ray: No CT Scan: No CPR started during [employer]?: No - Vital Signs Vital Signs: Rapid Response Vital Sign Blood Pressure 222/95 Pulse Rate 91 Respiratory Rate 20 Temperature 97.7 F Oxygen Saturation 95 - Time [employer] Ended Time [employer] Ended: 09:50 - Vital Signs at end of [employer] Vital Signs at end of [employer]: Rapid Response End Vital Sign Blood Pressure 193/77 Pulse Rate 94 Respiratory Rate 20 Temperature 97.7 F O2 Sat by Pulse Oximetry 96 - Recommendations [employer] Level of Care Recommendations: Remain in current setting I.Reason for [employer] - A) Acute Change in Patient: (Select all that apply): Staff member or family is worried about patient - Neurological Status (Select all that apply): Alert, Responsive, Oriented, Verbal, Follows Commands - Respiratory Oxygen Delivery Method: Room Air Plan - Assessment of Findings&Treatment Plan 52 y/o female with PMHx of DM, HTN, Osteomyelitis, S/P left foot surgery admitted for acute pulmonary edema. [employer] called at 9:25AM. Dr. Lee and [employer] team arrived on site. Initial vitals: BP 222/95, HR 90, PCR484%, T-97.7. Patient reports 7/10 left foot pain but refuses any chest pain, SOB, dizziness, headache, vision changes or weakness. Patient received Hydralazine 20 mg IVP followed by Dilaudid 1 mg IVP and Labetolol 10 mg IVP with improvement in BP. Dr. Nance informed about patient. HTN medications: Imdur 60 mg PO daily, enalapril 10 mg BID, Toprol Xl 200 mg QD , Xanax 0.25 BID for anxiety and dilaudid 1 mg [id number] for pain. Vitals 9:25: BP 222/95, HR 90, XGQ137%, T-97.7, Patient on equal opportunity assistant 9:30: BP 225/90, HR 90, PLB743%, T-97.7, received Hydralazine 20 mg IVP Stat 9:40: BP 213/83, HR 97 Dilaudid 1 mg IVP, followed by Labetolol 10 mg IVP 9:44: BP 214/73 9:50: BP 193/73 - Will start Norvasc 10 mg from tomorrow AM - Will monitor patient for acute changes
--- NOTE | 2018-04-02 10:26 | CP.PCM.PN ---
Subjective - Date & Time of Evaluation Date of Evaluation: 04/02/18 Time of Evaluation: 10:31 - Subjective Subjective: HAD AN EPISODE OF EPISTAXIS LAST NOGHT NOSE WAS PACKED BY RESIDENT--BLEEDING HASW SUBSIDED BP IS ELEVATED Objective - Vital Signs/Intake and Output Vital Signs (last 24 hours): Temp Pulse Resp BP Pulse Ox 98.2 F 90 19 202/104 H 97 04/02/18 07:59 04/02/18 09:15 04/02/18 07:59 04/02/18 09:15 04/02/18 07:59 - Medications Medications: Current Medications Acetaminophen (Tylenol 325mg Tab) 650 mg PO Q4 PRN PRN Reason: Pain, Mild (1-3) Albuterol/Ipratropium (Duoneb 3 Mg/0.5 Mg (3 Ml) Ud) 3 ml INH RQ6 PRN PRN Reason: Shortness of Breath Alprazolam (Xanax) 0.25 mg PO Q12 [facility] Stop: 04/05/18 10:16 Last Admin: 04/02/18 08:09 Dose: 0.25 mg Amlodipine Besylate (Norvasc) 10 mg PO DAILY [facility] Atorvastatin Calcium (Lipitor) 40 mg PO HS [facility] Last Admin: 04/01/18 22:16 Dose: 40 mg Clonidine HCl (Catapres) 0.2 mg PO BID [facility] Enalapril Maleate (Vasotec) 20 mg PO BID [facility] Hydromorphone HCl (Dilaudid) 1 mg IVP Q4 PRN PRN Reason: Pain, moderate (4-7) Last Admin: 04/02/18 08:09 Dose: 1 mg Piperacillin Sod/Tazobactam (Sod 2.25 gm/ Sodium Chloride) 100 mls @ 100 mls/ hr IVPB Q8 [facility] PRN Reason: Protocol Last Admin: 04/02/18 01:10 Dose: 100 mls/hr Vancomycin HCl 750 mg/ Sodium (Chloride) 250 mls @ 166.667 mls/hr IVPB Q12 [facility] PRN Reason: Protocol Last Admin: 04/01/18 20:36 Dose: 166.667 mls/hr Insulin Detemir (Levemir) 70 units SC HS [facility] Last Admin: 04/01/18 22:21 Dose: 70 units Insulin Human Lispro (Humalog) 0 units SC ACHS [facility] Last Admin: 04/01/18 22:17 Dose: Not Given Insulin Human Lispro (Humalog) 30 units SC AC [facility] Last Admin: 04/01/18 17:55 Dose: 30 units Isosorbide Mononitrate (Imdur) 60 mg PO DAILY [facility] Last Admin: 04/02/18 09:15 Dose: 60 mg Lactulose (Enulose) 10 gm PO DAILY PRN PRN Reason: Constipation Metoprolol Succinate (Toprol Xl) 200 mg PO Q12 [facility] Last Admin: 04/02/18 08:08 Dose: 200 mg Morphine Sulfate (Morphine Extended Release Tab) 30 mg PO Q8@0400,1200,2000 [facility] Last Admin: 04/02/18 04:15 Dose: 30 mg Ondansetron HCl (Zofran Inj) 4 mg IVP Q4 PRN PRN Reason: Nausea/Vomiting Last Admin: 04/01/18 09:22 Dose: 4 mg Oxycodone HCl (Oxycodone Immediate Release Tab) 30 mg PO Q6 PRN PRN Reason: Pain, moderate (4-7) Last Admin: 04/02/18 06:14 Dose: 30 mg Pantoprazole Sodium (Protonix Inj) 40 mg IVP DAILY [facility] Last Admin: 04/02/18 08:15 Dose: 40 mg - Labs Labs: 03/31/18 04:20 03/31/18 04:20 - Constitutional Appears: In Acute Distress - Head Exam Head Exam: ATRAUMATIC, NORMAL INSPECTION, NORMOCEPHALIC - Eye Exam Eye Exam: EOMI, Normal appearance, PERRL Pupil Exam: NORMAL ACCOMODATION, PERRL - ENT Exam ENT Exam: Mucous Membranes Moist, Normal Exam Additional comments: L NOSTRIL PACKED - Neck Exam Neck Exam: Full ROM, Normal Inspection. absent: Lymphadenopathy - Respiratory Exam Respiratory Exam: Clear to Ausculation Bilateral, NORMAL BREATHING PATTERN - Cardiovascular Exam Cardiovascular Exam: REGULAR RHYTHM, +S1, +S2. absent: Murmur - GI/Abdominal Exam GI & Abdominal Exam: Soft, Normal Bowel Sounds. absent: Tenderness - Rectal Exam Rectal Exam: NORMAL INSPECTION - Extremities Exam Extremities Exam: Tenderness. absent: Joint Swelling, Pedal Edema Additional comments: S/P L FOOT SURGERY HARDWARE IN PLACE S/P R TRANSMET AMPUTATION - Back Exam Back Exam: NORMAL INSPECTION - Neurological Exam Neurological Exam: Abnormal Gait, Alert, Awake, CN II-XII Intact, Oriented x3 - Psychiatric Exam Psychiatric exam: Flat Affect, Normal Mood - Skin Skin Exam: Dry, Warm Assessment and Plan - Assessment and Plan (Free Text) Assessment: S/P L FOOT SURGERY OSTEOMYELITIS OF L FOOT/ANKLE ACCELERATED HTN EPISTAXIS DM PVD S/P [place] PULMONARY EDEMA--RESOLVED CHRONIC ANEMIA Plan: ADJUST BP MEDS MONITOR HB AND BP HOLD ANTICOAGULATION RX WILL DISCUS FURTHER RX WITH PODIATRY
--- NOTE | 2018-04-02 14:41 | CP.PCM.PN ---
Subjective - Date & Time of Evaluation Date of Evaluation: 04/02/18 Time of Evaluation: 12:30 - Subjective Subjective: Podiatry progress note for Dr. 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 Patient is AAOx3. Patient currently in acute distress as her blood pressure went high yesterday and she bled from her nose. Patient states that after she bled from her nose nasal pack inserted to control the bleeding . She states that she is still in pain on the outside of her left ankle. Patient states that her right foot ulcer is stable now. SHe denies any other pedal complaint at this time. She denies any overnight N/V/F. Objective - Vital Signs/Intake and Output Vital Signs (last 24 hours): Temp Pulse Resp BP Pulse Ox 98.2 F 90 19 202/104 H 97 04/02/18 07:59 04/02/18 09:15 04/02/18 07:59 04/02/18 09:15 04/02/18 07:59 - Medications Medications: Current Medications Acetaminophen (Tylenol 325mg Tab) 650 mg PO Q4 PRN PRN Reason: Pain, Mild (1-3) Albuterol/Ipratropium (Duoneb 3 Mg/0.5 Mg (3 Ml) Ud) 3 ml INH RQ6 PRN PRN Reason: Shortness of Breath Alprazolam (Xanax) 0.25 mg PO Q12 [facility] Stop: 04/05/18 10:16 Last Admin: 04/02/18 08:09 Dose: 0.25 mg Amlodipine Besylate (Norvasc) 10 mg PO DAILY [facility] Atorvastatin Calcium (Lipitor) 40 mg PO HS [facility] Last Admin: 04/01/18 22:16 Dose: 40 mg Clonidine HCl (Catapres) 0.2 mg PO BID [facility] Enalapril Maleate (Vasotec) 20 mg PO BID [facility] Last Admin: 04/02/18 11:01 Dose: 20 mg Hydromorphone HCl (Dilaudid) 1 mg IVP Q4 PRN PRN Reason: Pain, moderate (4-7) Last Admin: 04/02/18 13:52 Dose: 1 mg Piperacillin Sod/Tazobactam (Sod 2.25 gm/ Sodium Chloride) 100 mls @ 100 mls/ hr IVPB Q8 [facility] PRN Reason: Protocol Last Admin: 04/02/18 11:01 Dose: 100 mls/hr Vancomycin HCl 750 mg/ Sodium (Chloride) 250 mls @ 166.667 mls/hr IVPB Q12 [facility] PRN Reason: Protocol Last Admin: 04/02/18 12:22 Dose: 166.667 mls/hr Insulin Detemir (Levemir) 70 units SC HS [facility] Last Admin: 04/01/18 22:21 Dose: 70 units Insulin Human Lispro (Humalog) 0 units SC ACHS [facility] Last Admin: 04/02/18 12:03 Dose: Not Given Insulin Human Lispro (Humalog) 30 units SC AC [facility] Last Admin: 04/02/18 12:44 Dose: 30 units Isosorbide Mononitrate (Imdur) 60 mg PO DAILY [facility] Last Admin: 04/02/18 09:15 Dose: 60 mg Lactulose (Enulose) 10 gm PO DAILY PRN PRN Reason: Constipation Metoprolol Succinate (Toprol Xl) 200 mg PO Q12 [facility] Last Admin: 04/02/18 08:08 Dose: 200 mg Morphine Sulfate (Morphine Extended Release Tab) 30 mg PO Q8@0400,1200,2000 [facility] Last Admin: 04/02/18 12:21 Dose: 30 mg Ondansetron HCl (Zofran Inj) 4 mg IVP Q4 PRN PRN Reason: Nausea/Vomiting Last Admin: 04/01/18 09:22 Dose: 4 mg Oxycodone HCl (Oxycodone Immediate Release Tab) 30 mg PO Q6 PRN PRN Reason: Pain, moderate (4-7) Last Admin: 04/02/18 06:14 Dose: 30 mg Pantoprazole Sodium (Protonix Inj) 40 mg IVP DAILY [facility] Last Admin: 04/02/18 08:15 Dose: 40 mg - Labs Labs: 03/31/18 04:20 03/31/18 04:20 - Constitutional Appears: Non-toxic, In Acute Distress - Head Exam Head Exam: ATRAUMATIC, NORMOCEPHALIC - Extremities Exam Additional comments: Vasc: DP and PT pulses palpable 1/4 on the right but not assessed due to obstruction from external fixation device on her left foot, cap refill on left foot <3 to all digits, mild edema present about the surgery sites with pin placement. Neuro: protective sensation absent bilaterally Derm: dressing clean and dry, minimal drainage, suture sites are well coapted with no signs of dehiscence noted, no malodor or pus, pin sites are clean with minimal sanguineous drainage, no erythema and mild edema noted, no clinical signs of infection. MSK: pain on palpation about the left lower leg and surgery sites; external fixation limits any motion at the left lower extremity. No pain on palpating the right foot ulcer. - Neurological Exam Neurological Exam: Alert, Awake, Oriented x3 - Psychiatric Exam Psychiatric exam: Anxious Assessment and Plan - Assessment and Plan (Free Text) Assessment: 52 yo patient seen at bedside 5 days s/p left foot charcot neuroarthropathy reconstruction using external fixation device Plan: Patient seen and evaluated at the bedside. Discussed in detail with Dr. Macdonald Charts and labs reviewed: afrebrile and absent leukocytosis Patients left foot dressing kept intact, Right foot dressed with wet to dry dressing. Left ankle and foot x-rays taken: external fixator device obscures ankle with no actue fracture or dislocation appreciated, widening of the superolateral ankle mortise question, clinically correlate Patient demonstrates awareness of staged procedure for charcot reconstruction and further surgery in about one week assuming health of patient is stable Monitor blood glucose level, last measurement 270 Patient blood pressure is still high; last reading was 222/95 Medicine - continue treatment regimine - discuss plan further with podiatry Continue to follow ID recommendations on antibiotics - vanomycin , zosyn IV Podiatry will continue to follow up patient while in house
--- NOTE | 2018-04-02 15:47 | PN ---
DATE: 04/02/2018 ENDO FOLLOWUP NOTE LOCATION: In room 660. SUBJECTIVE: This is a 52-year-old female with recent uncontrolled type 2 insulin-requiring diabetes, now being followed closely for metabolic management. She initially presented here with left lower extremity cellulitis and underlying osteomyelitis and recently underwent a recent a surgical debridement and resection of the left foot and is now being followed closely for metabolic management. Her glycemic levels are fluctuating, but improved and the glucose values have ranged from 170 to 204 and 248 mg/dL. LABORATORY DATA: Her latest chemistry showed a BUN of 30, sodium 140, potassium 3.9, chloride 101, CO2 of 31, glucose 208, and creatinine 0.9. ASSESSMENT AND PLAN: So at this time, we will continue the same basal and bolus insulin regimen as given to allow for dose equilibration and keep her on the Humalog given as 30 units subcutaneously t.i.d. before meals as ordered. We will also continue the Levemir given as 70 units subcutaneously at bedtime daily as given. We will titrate incrementally as indicated to optimize metabolic control. We will obtain serial chemistries and supplement accordingly as needed. We will follow. Yesika Vogel MD
--- NOTE | 2018-04-02 17:41 | CARD ---
APPROVED REPORT Date of service: 04/01/2018 <Conclusion> Normal sinus rhythm Nonspecific ST and T wave abnormality Abnormal ECG
[2018-04-02 19:16] LABS: INR 1.1; PROTHROMBIN TIME 12.1 Seconds (9.8-13.1)
[2018-04-02 19:18] LABS: PARTIAL THROMBOPLASTIN TIME 30.7 Seconds (25.6-37.1)
[2018-04-02 19:21] LABS: HEMOGLOBIN 8.9 g/dL (12.0-16.0); MEAN CELL VOLUME 80.8 fl (81.0-99.0); MEAN CORPUSCULAR HEMOGLOBIN 26.7 pg (27.0-31.0); RBC 3.33 Mil/uL (3.80-5.20); RED CELL DISTRIBUTION WIDTH 16.6 % (11.5-14.5); WHITE BLOOD COUNT 6.6 K/uL (4.8-10.8)
[2018-04-02] MEDS: Insulin Detemir 100 Units/ml Inj SC SCH (21:10)
[2018-04-03] MEDS: Morphine 30 mg SR Tab PO SCH ×3 (04:53→20:59)
[2018-04-03] MEDS: Insulin Lispro (humaLOG) 100 Units/ml Inj SC SCH ×7 (08:42→22:30)
[2018-04-03] MEDS: Metoprolol Succinate 100 mg XL Tab PO SCH ×2 (08:44→21:08)
[2018-04-03] MEDS ORDERED: Lactulose 10 gm/15 ml Syrup PO PRN (10:15)
--- NOTE | 2018-04-03 11:28 | CP.PCM.PN ---
Subjective - Date & Time of Evaluation Date of Evaluation: 04/03/18 Time of Evaluation: 11:28 - Subjective Subjective: NO RECURRENCE OF EPISTAXIS BP BETTER CONTROLLED LESS L LEG PAIN Objective - Vital Signs/Intake and Output Vital Signs (last 24 hours): Temp Pulse Resp BP Pulse Ox 98.4 F 76 19 168/78 H 98 04/03/18 07:57 04/03/18 08:44 04/03/18 07:57 04/03/18 08:44 04/03/18 07:57 - Medications Medications: Current Medications Acetaminophen (Tylenol 325mg Tab) 650 mg PO Q4 PRN PRN Reason: Pain, Mild (1-3) Albuterol/Ipratropium (Duoneb 3 Mg/0.5 Mg (3 Ml) Ud) 3 ml INH RQ6 PRN PRN Reason: Shortness of Breath Alprazolam (Xanax) 0.25 mg PO Q12 [facility] Stop: 04/05/18 10:16 Last Admin: 04/03/18 09:01 Dose: 0.25 mg Amlodipine Besylate (Norvasc) 10 mg PO DAILY [facility] Last Admin: 04/03/18 08:43 Dose: 10 mg Atorvastatin Calcium (Lipitor) 40 mg PO HS [facility] Last Admin: 04/02/18 21:14 Dose: 40 mg Clonidine HCl (Catapres) 0.2 mg PO BID [facility] Last Admin: 04/03/18 08:41 Dose: 0.2 mg Enalapril Maleate (Vasotec) 20 mg PO BID [facility] Last Admin: 04/03/18 08:45 Dose: 20 mg Hydromorphone HCl (Dilaudid) 1 mg IVP Q4 PRN PRN Reason: Pain, moderate (4-7) Last Admin: 04/03/18 10:43 Dose: 1 mg Piperacillin Sod/Tazobactam (Sod 2.25 gm/ Sodium Chloride) 100 mls @ 100 mls/ hr IVPB Q8 [facility] PRN Reason: Protocol Last Admin: 04/03/18 08:45 Dose: 100 mls/hr Vancomycin HCl 750 mg/ Sodium (Chloride) 250 mls @ 166.667 mls/hr IVPB Q12 [facility] PRN Reason: Protocol Last Admin: 04/03/18 08:46 Dose: 166.667 mls/hr Insulin Detemir (Levemir) 70 units SC HS [facility] Last Admin: 04/02/18 21:10 Dose: 70 units Insulin Human Lispro (Humalog) 0 units SC ACHS [facility] Last Admin: 04/03/18 08:42 Dose: Not Given Insulin Human Lispro (Humalog) 30 units SC AC [facility] Last Admin: 04/03/18 08:43 Dose: 30 units Isosorbide Mononitrate (Imdur) 60 mg PO DAILY [facility] Last Admin: 04/03/18 08:43 Dose: 60 mg Lactulose (Enulose) 10 gm PO DAILY PRN PRN Reason: Constipation Metoprolol Succinate (Toprol Xl) 200 mg PO Q12 [facility] Last Admin: 04/03/18 08:44 Dose: 200 mg Morphine Sulfate (Morphine Extended Release Tab) 30 mg PO Q8@0400,1200,2000 [facility] Last Admin: 04/03/18 04:53 Dose: 30 mg Ondansetron HCl (Zofran Inj) 4 mg IVP Q4 PRN PRN Reason: Nausea/Vomiting Last Admin: 04/01/18 09:22 Dose: 4 mg Oxycodone HCl (Oxycodone Immediate Release Tab) 30 mg PO Q6 PRN PRN Reason: Pain, moderate (4-7) Last Admin: 04/02/18 17:35 Dose: 30 mg Pantoprazole Sodium (Protonix Inj) 40 mg IVP DAILY [facility] Last Admin: 04/03/18 08:44 Dose: 40 mg - Labs Labs: 04/02/18 18:45 03/31/18 04:20 PT 12.1 Seconds (9.8-13.1) 04/02/18 19:00 INR 1.1 04/02/18 19:00 APTT 30.7 Seconds (25.6-37.1) 04/02/18 19:00 - Constitutional Appears: Chronically Ill - Head Exam Head Exam: ATRAUMATIC, NORMAL INSPECTION, NORMOCEPHALIC - Eye Exam Eye Exam: EOMI, Normal appearance, PERRL Pupil Exam: NORMAL ACCOMODATION, PERRL - ENT Exam ENT Exam: Mucous Membranes Moist, Normal Exam - Neck Exam Neck Exam: Full ROM, Normal Inspection. absent: Lymphadenopathy - Respiratory Exam Respiratory Exam: Clear to Ausculation Bilateral, NORMAL BREATHING PATTERN - Cardiovascular Exam Cardiovascular Exam: REGULAR RHYTHM, +S1, +S2. absent: Murmur - GI/Abdominal Exam GI & Abdominal Exam: Soft, Normal Bowel Sounds. absent: Tenderness - Rectal Exam Rectal Exam: NORMAL INSPECTION - Extremities Exam Extremities Exam: Full ROM, Tenderness. absent: Joint Swelling, Pedal Edema Additional comments: L FOOT/ANKLE - Back Exam Back Exam: NORMAL INSPECTION - Neurological Exam Neurological Exam: Abnormal Gait, Alert, Awake, CN II-XII Intact, Oriented x3 - Psychiatric Exam Psychiatric exam: Normal Affect, Normal Mood - Skin Skin Exam: Dry, Warm Assessment and Plan - Assessment and Plan (Free Text) Assessment: CELLULITIS WITH OSTEOMYELITIS OF L FOOT/ANLE CHARCOT DEFORMITY L LEG DM HTN PVD ANEMIA EPISTAXIS-RESOLVED CHF-RESOLVED ASHD Plan: CONTINUE CURRENT RX
--- NOTE | 2018-04-03 14:24 | CP.PCM.PN ---
Subjective - Date & Time of Evaluation Date of Evaluation: 04/03/18 Time of Evaluation: 14:16 - Subjective Subjective: Podiatry progress note for attending Dr. Macdonald: 51 yo female seen and evaluated 6 days s/p left foot charcot neuroarthropathy reconstruction with external fixation. Patient is AAOx3. Patient today is not in acute distress, She was sitting comfortably in her bed. She states that her blood pressure went down and she is not bleeding from her nose now. She states that she is still in pain on the outside of her left ankle. She states taht her pain is 8/10 on VAS scale. Patient states that her right foot ulcer is stable now. SHe denies any other pedal complaint at this time. She denies any overnight N/V/F. Objective - Vital Signs/Intake and Output Vital Signs (last 24 hours): Temp Pulse Resp BP Pulse Ox 98.4 F 76 19 168/78 H 98 04/03/18 07:57 04/03/18 08:44 04/03/18 07:57 04/03/18 08:44 04/03/18 07:57 - Medications Medications: Current Medications Acetaminophen (Tylenol 325mg Tab) 650 mg PO Q4 PRN PRN Reason: Pain, Mild (1-3) Albuterol/Ipratropium (Duoneb 3 Mg/0.5 Mg (3 Ml) Ud) 3 ml INH RQ6 PRN PRN Reason: Shortness of Breath Alprazolam (Xanax) 0.25 mg PO Q12 [facility] Stop: 04/05/18 10:16 Last Admin: 04/03/18 09:01 Dose: 0.25 mg Amlodipine Besylate (Norvasc) 10 mg PO DAILY [facility] Last Admin: 04/03/18 08:43 Dose: 10 mg Atorvastatin Calcium (Lipitor) 40 mg PO HS [facility] Last Admin: 04/02/18 21:14 Dose: 40 mg Clonidine HCl (Catapres) 0.2 mg PO BID [facility] Last Admin: 04/03/18 08:41 Dose: 0.2 mg Enalapril Maleate (Vasotec) 20 mg PO BID [facility] Last Admin: 04/03/18 08:45 Dose: 20 mg Hydromorphone HCl (Dilaudid) 1 mg IVP Q4 PRN PRN Reason: Pain, moderate (4-7) Last Admin: 04/03/18 10:43 Dose: 1 mg Vancomycin HCl 750 mg/ Sodium (Chloride) 250 mls @ 166.667 mls/hr IVPB Q12 [facility] PRN Reason: Protocol Last Admin: 04/03/18 08:46 Dose: 166.667 mls/hr Insulin Detemir (Levemir) 70 units SC HS [facility] Last Admin: 04/02/18 21:10 Dose: 70 units Insulin Human Lispro (Humalog) 0 units SC ACHS [facility] Last Admin: 04/03/18 08:42 Dose: Not Given Insulin Human Lispro (Humalog) 30 units SC AC [facility] Last Admin: 04/03/18 08:43 Dose: 30 units Isosorbide Mononitrate (Imdur) 60 mg PO DAILY [facility] Last Admin: 04/03/18 08:43 Dose: 60 mg Lactulose (Enulose) 10 gm PO DAILY PRN PRN Reason: Constipation Metoprolol Succinate (Toprol Xl) 200 mg PO Q12 [facility] Last Admin: 04/03/18 08:44 Dose: 200 mg Morphine Sulfate (Morphine Extended Release Tab) 30 mg PO Q8@0400,1200,2000 [facility] Last Admin: 04/03/18 12:50 Dose: 30 mg Ondansetron HCl (Zofran Inj) 4 mg IVP Q4 PRN PRN Reason: Nausea/Vomiting Last Admin: 04/01/18 09:22 Dose: 4 mg Oxycodone HCl (Oxycodone Immediate Release Tab) 30 mg PO Q6 PRN PRN Reason: Pain, moderate (4-7) Last Admin: 04/02/18 17:35 Dose: 30 mg Pantoprazole Sodium (Protonix Inj) 40 mg IVP DAILY [facility] Last Admin: 04/03/18 08:44 Dose: 40 mg - Labs Labs: 04/02/18 18:45 03/31/18 04:20 PT 12.1 Seconds (9.8-13.1) 04/02/18 19:00 INR 1.1 04/02/18 19:00 APTT 30.7 Seconds (25.6-37.1) 04/02/18 19:00 - Constitutional Appears: Well, Non-toxic, No Acute Distress - Head Exam Head Exam: ATRAUMATIC, NORMOCEPHALIC - Extremities Exam Additional comments: Vasc: DP/PT pulses palpable 1/4 on the right but not assessed due to obstruction from external fixation device on her left foot, cap refill on left foot <3 to all digits, mild edema present about the surgery sites with pin placement. Neuro: protective sensation absent bilaterally Derm: dressing clean and dry, No drainage, suture sites are well coapted with no signs of dehiscence noted, no malodor or pus, pin sites are clean with minimal sanguineous drainage, no erythema and mild edema noted, no clinical signs of infection. MSK: pain on palpation about the left lower leg and surgery sites; external fixation limits any motion at the left lower extremity. No pain on palpating the right foot ulcer. - Neurological Exam Neurological Exam: Alert, Awake, Oriented x3 - Psychiatric Exam Psychiatric exam: Normal Affect Assessment and Plan - Assessment and Plan (Free Text) Assessment: 52 yo patient seen at bedside 6 days s/p left foot charcot neuroarthropathy reconstruction using external fixation device Plan: Patient seen and evaluated at the bedside. Discussed in detail with Dr. Macdonald Charts and labs reviewed: afrebrile and absent leukocytosis Patients left foot dressing kept intact, Right foot dressed with wet to dry dressing. Patient surgery site at the left LE cleaned with saline then dressed with xeroform, 4X4 gauze, jj and graeme bandage. Left ankle and foot x-rays taken 03/29: external fixator device obscures ankle with no actue fracture or dislocation appreciated, widening of the superolateral ankle mortise question, clinically correlate New 3 views X-ray ordered for the left ankle Patient demonstrates awareness of staged procedure for charcot reconstruction and further surgery in about one week assuming health of patient is stable Monitor blood glucose level, today last measurement 173 mg/dl Patient blood pressure is still high; last reading was 168/78 mmhg Medicine - continue treatment regimen - discuss plan further with podiatry Continue to follow ID recommendations on antibiotics - vanomycin IV Podiatry will continue to follow up patient while in house
--- NOTE | 2018-04-03 15:23 | RAD ---
Date of service: 04/03/2018 PROCEDURE: Left Ankle Radiographs. HISTORY: S/P left Charcot reconstruction with ex-fix COMPARISON: 03/29/2018 FINDINGS: BONES: There is once again evidence of previously identified external fixation rings and wires overlying the left lower leg and left foot and ankle region. The apparatus limits bony detail, although the bony structures and ankle mortise appear stable in appearance. JOINTS: See above SOFT TISSUES: See above OTHER FINDINGS: None. IMPRESSION: Status post external fixation of the left lower leg and ankle. Limited visualization of the bony structures reveals no significant interval change from the prior exam.
--- NOTE | 2018-04-03 16:38 | PN ---
DATE: 04/03/2018 ENDO FOLLOWUP NOTE LOCATION: Room 660. SUBJECTIVE: This is a 52-year-old female with recent uncontrolled type 2 insulin-requiring diabetes, now being followed closely for metabolic management. Her glycemic levels are fluctuating, but improved and the glucose values have ranged overnight from 173 to 177 and 222 mg/dL. It was 329 at bedtime last night. The latest chemistries shows a BUN of 30, sodium 140, potassium 3.9, chloride 101, CO2 31, glucose 208, and creatinine 0.9. So at this time, we will continue the same basal and bolus insulin regimen to allow for dose equilibration and keep her on the Humalog given as 30 units subcutaneously t.i.d. before meals as ordered. We will also continue the Levemir given as 70 units subcutaneously at bedtime daily as given. We will titrate incrementally as indicated to optimize metabolic control. We will follow and advise accordingly. Yesika Vogel MD
[2018-04-03] MEDS: Insulin Detemir 100 Units/ml Inj SC SCH (21:20)
[2018-04-04] MEDS: oxyCODONE 10 mg Immediate Release Tab PO PRN ×2 (04:31→20:31)
[2018-04-04] MEDS: Morphine 30 mg SR Tab PO SCH ×3 (04:33→20:31)
[2018-04-04 06:28] LABS: BASO # 0.1 K/uL (0.0-0.2); BASO % 1.2 % (0.0-2.0); EOS # 0.2 K/uL (0.0-0.7); EOS % 2.9 % (0.0-4.0); LYMPH # 1.1 K/uL (1.0-4.3); LYMPH % 16.1 % (20.0-40.0); MEAN CELL VOLUME 82.3 fl (81.0-99.0); MEAN CORPUSCULAR HEMOGLOBIN 27.3 pg (27.0-31.0); MEAN CORPUSCULAR HGB CONC 33.1 g/dL (33.0-37.0); MEAN PLATELET VOLUME 8.2 fl (7.2-11.7); MONO # 0.5 K/uL (0.0-0.8); MONO % 7.3 % (0.0-10.0); NEUT % 72.5 % (50.0-75.0); RBC 2.94 Mil/uL (3.80-5.20); RED CELL DISTRIBUTION WIDTH 17.2 % (11.5-14.5); WHITE BLOOD COUNT 6.9 K/uL (4.8-10.8)
[2018-04-04 06:39] LABS: ALB/GLOB RATIO 0.9 (1.0-2.1); ALBUMIN 3.3 g/dL (3.5-5.0); CALCIUM 8.9 mg/dL (8.4-10.2)
[2018-04-04] MEDS: Insulin Lispro (humaLOG) 100 Units/ml Inj SC SCH ×7 (08:50→23:19)
--- NOTE | 2018-04-04 09:15 | CP.PCM.PN ---
Subjective - Date & Time of Evaluation Date of Evaluation: 04/04/18 Time of Evaluation: 09:16 - Subjective Subjective: LESS FOOT PAIN PODIATRY CARE CONTINUES MORE SURGICAL INTERVENTION PLANNED FOR L FOOT/ANKLE[WILL DISC WITH PODIATRY] Objective - Vital Signs/Intake and Output Vital Signs (last 24 hours): Temp Pulse Resp BP Pulse Ox 97.9 F 77 20 127/68 98 04/04/18 01:02 04/04/18 08:51 04/04/18 01:02 04/04/18 08:51 04/04/18 01:02 - Medications Medications: Current Medications Acetaminophen (Tylenol 325mg Tab) 650 mg PO Q4 PRN PRN Reason: Pain, Mild (1-3) Albuterol/Ipratropium (Duoneb 3 Mg/0.5 Mg (3 Ml) Ud) 3 ml INH RQ6 PRN PRN Reason: Shortness of Breath Alprazolam (Xanax) 0.25 mg PO Q12 [facility] Stop: 04/05/18 10:16 Last Admin: 04/03/18 21:17 Dose: 0.25 mg Amlodipine Besylate (Norvasc) 10 mg PO DAILY [facility] Last Admin: 04/04/18 08:51 Dose: 10 mg Atorvastatin Calcium (Lipitor) 40 mg PO HS [facility] Last Admin: 04/03/18 21:18 Dose: 40 mg Clonidine HCl (Catapres) 0.2 mg PO BID [facility] Last Admin: 04/04/18 08:49 Dose: 0.2 mg Enalapril Maleate (Vasotec) 20 mg PO BID [facility] Last Admin: 04/03/18 16:53 Dose: 20 mg Ferrous Sulfate (Feosol) 325 mg PO TID [facility] Hydromorphone HCl (Dilaudid) 1 mg IVP Q4 PRN PRN Reason: Pain, moderate (4-7) Last Admin: 04/04/18 05:54 Dose: 1 mg Vancomycin HCl 750 mg/ Sodium (Chloride) 250 mls @ 166.667 mls/hr IVPB Q12 [facility] PRN Reason: Protocol Last Admin: 04/03/18 21:25 Dose: 166.667 mls/hr Piperacillin Sod/Tazobactam (Sod 2.25 gm/ Sodium Chloride) 100 mls @ 100 mls/ hr IVPB Q8 [facility] PRN Reason: Protocol Last Admin: 04/04/18 01:44 Dose: 100 mls/hr Insulin Detemir (Levemir) 70 units SC HS [facility] Last Admin: 04/03/18 21:20 Dose: 70 units Insulin Human Lispro (Humalog) 0 units SC ACHS [facility] Last Admin: 04/04/18 08:50 Dose: Not Given Insulin Human Lispro (Humalog) 30 units SC AC [facility] Last Admin: 04/04/18 08:50 Dose: 30 units Isosorbide Mononitrate (Imdur) 60 mg PO DAILY [facility] Last Admin: 04/04/18 08:51 Dose: 60 mg Lactulose (Enulose) 10 gm PO DAILY PRN PRN Reason: Constipation Metoprolol Succinate (Toprol Xl) 200 mg PO Q12 [facility] Last Admin: 04/03/18 21:08 Dose: 200 mg Morphine Sulfate (Morphine Extended Release Tab) 30 mg PO Q8@0400,1200,2000 [facility] Last Admin: 04/04/18 04:33 Dose: Not Given Ondansetron HCl (Zofran Inj) 4 mg IVP Q4 PRN PRN Reason: Nausea/Vomiting Last Admin: 04/01/18 09:22 Dose: 4 mg Oxycodone HCl (Oxycodone Immediate Release Tab) 30 mg PO Q6 PRN PRN Reason: Pain, moderate (4-7) Last Admin: 04/04/18 04:31 Dose: 30 mg Pantoprazole Sodium (Protonix Inj) 40 mg IVP DAILY [facility] Last Admin: 04/04/18 08:52 Dose: 40 mg - Labs Labs: 04/04/18 05:50 04/04/18 05:50 PT 12.1 Seconds (9.8-13.1) 04/02/18 19:00 INR 1.1 04/02/18 19:00 APTT 30.7 Seconds (25.6-37.1) 04/02/18 19:00 - Constitutional Appears: Chronically Ill - Head Exam Head Exam: ATRAUMATIC, NORMAL INSPECTION, NORMOCEPHALIC - Eye Exam Eye Exam: EOMI, Normal appearance, PERRL Pupil Exam: NORMAL ACCOMODATION, PERRL - ENT Exam ENT Exam: Mucous Membranes Moist, Normal Exam - Neck Exam Neck Exam: Full ROM, Normal Inspection. absent: Lymphadenopathy - Respiratory Exam Respiratory Exam: Clear to Ausculation Bilateral, NORMAL BREATHING PATTERN - Cardiovascular Exam Cardiovascular Exam: REGULAR RHYTHM, +S1, +S2. absent: Murmur - GI/Abdominal Exam GI & Abdominal Exam: Soft, Normal Bowel Sounds. absent: Tenderness - Rectal Exam Rectal Exam: NORMAL INSPECTION - Extremities Exam Extremities Exam: Tenderness. absent: Joint Swelling, Pedal Edema Additional comments: CHARCOT'S --L FOOT OSTEOMYELITIS OF L FOOT DM--WITH HYPERGLYCEMIA HTN--UNCONTROLLED SEVERE PERIPHERAL VASCULAR DZ ASHD--S/P AL ANEMIA--COMBINED[BLOOD LOSS AND CHRONIC DZ] HX O CHRONIC PAIN SYNDROME - Back Exam Back Exam: NORMAL INSPECTION - Neurological Exam Neurological Exam: Alert, Awake, CN II-XII Intact, Normal Gait, Oriented x3 - Psychiatric Exam Psychiatric exam: Normal Affect, Normal Mood - Skin Skin Exam: Dry, Intact, Normal Color, Warm Assessment and Plan - Assessment and Plan (Free Text) Plan: CONTINUE CURRENT RX WILL DISCUS FURTHER SURGICAL INTERVENTION WITH PODIATRY ?NEED FOR SUBACUTE CARE PLACEMENT
--- NOTE | 2018-04-04 12:08 | CP.PCM.PN ---
Subjective - Date & Time of Evaluation Date of Evaluation: 04/04/18 Time of Evaluation: 12:08 - Subjective Subjective: ID note- Pt. seen and examined today. pt's family at her bedside. she denies any fever or chills and states her left foot pain is slightly better today. case d/w podiatry residents at length today . as per podiatry no evidence of left foot plantar wound OM and bone was viable as per them in the OR anbd as per podiatry no plan for any debridement of the plantar wound , only plan is second stage of charcot surgery in 1 week . Objective - Vital Signs/Intake and Output Vital Signs (last 24 hours): Temp Pulse Resp BP Pulse Ox 97.8 F 72 20 151/74 H 96 04/04/18 09:00 04/04/18 09:00 04/04/18 09:00 04/04/18 09:00 04/04/18 09:00 - Medications Medications: Current Medications Acetaminophen (Tylenol 325mg Tab) 650 mg PO Q4 PRN PRN Reason: Pain, Mild (1-3) Albuterol/Ipratropium (Duoneb 3 Mg/0.5 Mg (3 Ml) Ud) 3 ml INH RQ6 PRN PRN Reason: Shortness of Breath Alprazolam (Xanax) 0.25 mg PO Q12 [facility] Stop: 04/05/18 10:16 Last Admin: 04/03/18 21:17 Dose: 0.25 mg Amlodipine Besylate (Norvasc) 10 mg PO DAILY [facility] Last Admin: 04/04/18 08:51 Dose: 10 mg Atorvastatin Calcium (Lipitor) 40 mg PO HS [facility] Last Admin: 04/03/18 21:18 Dose: 40 mg Clonidine HCl (Catapres) 0.2 mg PO BID [facility] Last Admin: 04/04/18 08:49 Dose: 0.2 mg Enalapril Maleate (Vasotec) 20 mg PO BID [facility] Last Admin: 04/04/18 08:53 Dose: 20 mg Ferrous Sulfate (Feosol) 325 mg PO TID [facility] Hydromorphone HCl (Dilaudid) 1 mg IVP Q4 PRN PRN Reason: Pain, moderate (4-7) Last Admin: 04/04/18 05:54 Dose: 1 mg Vancomycin HCl 750 mg/ Sodium (Chloride) 250 mls @ 166.667 mls/hr IVPB Q12 [facility] PRN Reason: Protocol Last Admin: 04/04/18 08:53 Dose: 166.667 mls/hr Piperacillin Sod/Tazobactam (Sod 2.25 gm/ Sodium Chloride) 100 mls @ 100 mls/ hr IVPB Q8 [facility] PRN Reason: Protocol Last Admin: 04/04/18 08:54 Dose: 100 mls/hr Insulin Detemir (Levemir) 70 units SC HS [facility] Last Admin: 04/03/18 21:20 Dose: 70 units Insulin Human Lispro (Humalog) 0 units SC ACHS [facility] Last Admin: 04/04/18 08:50 Dose: Not Given Insulin Human Lispro (Humalog) 30 units SC AC [facility] Last Admin: 04/04/18 08:50 Dose: 30 units Isosorbide Mononitrate (Imdur) 60 mg PO DAILY [facility] Last Admin: 04/04/18 08:51 Dose: 60 mg Lactulose (Enulose) 10 gm PO DAILY PRN PRN Reason: Constipation Metoprolol Succinate (Toprol Xl) 200 mg PO Q12 [facility] Last Admin: 04/03/18 21:08 Dose: 200 mg Morphine Sulfate (Morphine Extended Release Tab) 30 mg PO Q8@0400,1200,2000 [facility] Last Admin: 04/04/18 04:33 Dose: Not Given Ondansetron HCl (Zofran Inj) 4 mg IVP Q4 PRN PRN Reason: Nausea/Vomiting Last Admin: 04/01/18 09:22 Dose: 4 mg Oxycodone HCl (Oxycodone Immediate Release Tab) 30 mg PO Q6 PRN PRN Reason: Pain, moderate (4-7) Last Admin: 04/04/18 04:31 Dose: 30 mg Pantoprazole Sodium (Protonix Inj) 40 mg IVP DAILY [facility] Last Admin: 04/04/18 08:52 Dose: 40 mg - Labs Labs: - Additional Findings Additional findings: - Constitutional Appears: No Acute Distress - Head Exam Head Exam: ATRAUMATIC - Eye Exam Eye Exam: EOMI - ENT Exam ENT Exam: Normal Oropharynx - Neck Exam Neck exam: Positive for: Full Rom - Respiratory Exam Additional comments: good breath sounds heard b/l no wheezing - Cardiovascular Exam Cardiovascular Exam: RRR, +S1, +S2 - GI/Abdominal Exam GI & Abdominal Exam: Normal Bowel Sounds, Soft Additional comments: NT, ND - Extremities Exam Additional comments: right foot TMA (old) left foot in post surgical dressing and external fixation in place - Neurological Exam Neurological exam: Alert, Oriented x 3 Laboratory Results - last 72 hr 04/01/18 04/02/18 04/02/18 21:17 06:01 09:24 WBC RBC Hgb Hct MCV MCH MCHC RDW Plt Count MPV Neut % (Auto) Lymph % (Auto) Beckham % (Auto) Eos % (Auto) Baso % (Auto) Neut # (Auto) Lymph # (Auto) Beckham # (Auto) Eos # (Auto) Baso # (Auto) PT INR APTT Sodium Potassium Chloride Carbon Dioxide Anion Gap BUN Creatinine Est GFR ( Amer) Est GFR (Non-Af Amer) POC Glucose (mg/dL) 170 H 204 H 248 H Random Glucose Calcium Total Bilirubin AST ALT Alkaline Phosphatase Total Protein Albumin Globulin Albumin/Globulin Ratio Vancomycin Trough 04/02/18 04/02/18 04/02/18 11:28 15:40 18:45 WBC 6.6 RBC 3.33 L Hgb 8.9 L Hct 27.0 L MCV 80.8 L MCH 26.7 L MCHC 33.0 RDW 16.6 H Plt Count 296 MPV Neut % (Auto) Lymph % (Auto) Beckham % (Auto) Eos % (Auto) Baso % (Auto) Neut # (Auto) Lymph # (Auto) Beckham # (Auto) Eos # (Auto) Baso # (Auto) PT INR APTT Sodium Potassium Chloride Carbon Dioxide Anion Gap BUN Creatinine Est GFR ( Amer) Est GFR (Non-Af Amer) POC Glucose (mg/dL) 270 H 204 H Random Glucose Calcium Total Bilirubin AST ALT Alkaline Phosphatase Total Protein Albumin Globulin Albumin/Globulin Ratio Vancomycin Trough 04/02/18 04/02/18 04/02/18 19:00 19:00 21:10 WBC RBC Hgb Hct MCV MCH MCHC RDW Plt Count MPV Neut % (Auto) Lymph % (Auto) Beckham % (Auto) Eos % (Auto) Baso % (Auto) Neut # (Auto) Lymph # (Auto) Beckham # (Auto) Eos # (Auto) Baso # (Auto) PT 12.1 INR 1.1 APTT 30.7 Sodium Potassium Chloride Carbon Dioxide Anion Gap BUN Creatinine Est GFR ( Amer) Est GFR (Non-Af Amer) POC Glucose (mg/dL) 329 H Random Glucose Calcium Total Bilirubin AST ALT Alkaline Phosphatase Total Protein Albumin Globulin Albumin/Globulin Ratio Vancomycin Trough 10.4 H 04/03/18 04/03/18 04/03/18 04:13 05:58 11:13 WBC RBC Hgb Hct MCV MCH MCHC RDW Plt Count MPV Neut % (Auto) Lymph % (Auto) Beckham % (Auto) Eos % (Auto) Baso % (Auto) Neut # (Auto) Lymph # (Auto) Beckham # (Auto) Eos # (Auto) Baso # (Auto) PT INR APTT Sodium Potassium Chloride Carbon Dioxide Anion Gap BUN Creatinine Est GFR ( Amer) Est GFR (Non-Af Amer) POC Glucose (mg/dL) 222 H 177 H 173 H Random Glucose Calcium Total Bilirubin AST ALT Alkaline Phosphatase Total Protein Albumin Globulin Albumin/Globulin Ratio Vancomycin Trough 04/03/18 04/03/18 04/04/18 15:51 21:34 05:36 WBC RBC Hgb Hct MCV MCH MCHC RDW Plt Count MPV Neut % (Auto) Lymph % (Auto) Beckham % (Auto) Eos % (Auto) Baso % (Auto) Neut # (Auto) Lymph # (Auto) Beckham # (Auto) Eos # (Auto) Baso # (Auto) PT INR APTT Sodium Potassium Chloride Carbon Dioxide Anion Gap BUN Creatinine Est GFR ( Amer) Est GFR (Non-Af Amer) POC Glucose (mg/dL) 149 H 124 H 218 H Random Glucose Calcium Total Bilirubin AST ALT Alkaline Phosphatase Total Protein Albumin Globulin Albumin/Globulin Ratio Vancomycin Trough 04/04/18 04/04/18 04/04/18 05:50 05:50 11:34 WBC 6.9 RBC 2.94 L Hgb 8.0 L Hct 24.2 L MCV 82.3 MCH 27.3 MCHC 33.1 RDW 17.2 H Plt Count 288 MPV 8.2 Neut % (Auto) 72.5 Lymph % (Auto) 16.1 L Beckham % (Auto) 7.3 Eos % (Auto) 2.9 Baso % (Auto) 1.2 Neut # (Auto) 5.0 Lymph # (Auto) 1.1 Beckham # (Auto) 0.5 Eos # (Auto) 0.2 Baso # (Auto) 0.1 PT INR APTT Sodium 139 Potassium 4.2 Chloride 102 Carbon Dioxide 27 Anion Gap 14 BUN 41 H Creatinine 1.9 H Est GFR ( Amer) 34 Est GFR (Non-Af Amer) 28 POC Glucose (mg/dL) 138 H Random Glucose 223 H Calcium 8.9 Total Bilirubin 0.3 AST 17 ALT 15 Alkaline Phosphatase 82 Total Protein 6.9 Albumin 3.3 L Globulin 3.6 Albumin/Globulin Ratio 0.9 L Vancomycin Trough 04/04/18 15:50 WBC RBC Hgb Hct MCV MCH MCHC RDW Plt Count MPV Neut % (Auto) Lymph % (Auto) Beckham % (Auto) Eos % (Auto) Baso % (Auto) Neut # (Auto) Lymph # (Auto) Beckham # (Auto) Eos # (Auto) Baso # (Auto) PT INR APTT Sodium Potassium Chloride Carbon Dioxide Anion Gap BUN Creatinine Est GFR ( Amer) Est GFR (Non-Af Amer) POC Glucose (mg/dL) 115 H Random Glucose Calcium Total Bilirubin AST ALT Alkaline Phosphatase Total Protein Albumin Globulin Albumin/Globulin Ratio Vancomycin Trough Microbiology 03/31/18 17:36 Naris MRSA Culture (Admit) - Final MRSA NOT DETECTED 03/28/18 05:00 Nose MRSA Culture (Admit) - Final MRSA NOT DETECTED Microbiology 03/17/18 05:30 Urine Urine Culture - Final No Growth (<1,000 CFU/ML) 03/17/18 00:08 Foot - Left Gram Stain - Final 03/17/18 00:08 Foot - Left Wound Culture - Final Corynebacterium Species 03/17/18 00:05 Blood Blood Culture - Final 03/17/18 00:05 Blood Gram Stain - Final NO GROWTH AFTER 5 DAYS TEST NOT PERFORMED 03/16/18 00:25 Blood Blood Culture - Final 03/16/18 00:25 Blood Gram Stain - Final NO GROWTH AFTER 5 DAYS TEST NOT PERFORMED Accession No. : [id number] Patient Name / ID : PITO ZAZUETA / [id number] Exam Date : 04/03/2018 14:54:56 ( Approved ) Study Comment : Sex / Age : F / 52Y Creator : Olya Gamboa MD Dictator : Olya Gamoba MD Checkroom Chief : Mental Telepathist : Olya Gamboa MD Approver2 : Report Date : 04/03/2018 15:17:09 My Comment : Date of service: 04/03/2018 PROCEDURE: Left Ankle Radiographs. HISTORY: S/P left Charcot reconstruction with ex-fix COMPARISON: 03/29/2018 FINDINGS: BONES: There is once again evidence of previously identified external fixation rings and wires overlying the left lower leg and left foot and ankle region. The apparatus limits bony detail, although the bony structures and ankle mortise appear stable in appearance. JOINTS: See above SOFT TISSUES: See above OTHER FINDINGS: None. IMPRESSION: Status post external fixation of the left lower leg and ankle. Limited visualization of the bony structures reveals no significant interval change from the prior exam. Accession No. : [id number] Patient Name / ID : PITO ZAZUETA / [id number] Exam Date : 04/04/2018 11:04:57 ( Approved ) Study Comment : Sex / Age : F / 52Y Creator : Edgar Alvarez MD Dictator : Edgar Alvarez MD Checkroom Chief : Mental Telepathist : Edgar Alvarez MD Approver2 : Report Date : 04/04/2018 12:02:36 My Comment : Date of service: 04/04/2018 PROCEDURE: Left Foot Radiographs. HISTORY: S/P left charcot reconstruction with ex-fix. COMPARISON: None. FINDINGS: BONES: Postoperative changes identified. No evidence of orthopedic hardware failure. No acute findings identified. JOINTS: Normal. SOFT TISSUES: Normal. OTHER FINDINGS: None. IMPRESSION: Satisfactory postoperative status. Assessment and Plan (1) Acute pulmonary edema Status: Acute (2) Diabetes mellitus with hyperglycemia Status: Chronic (3) Charcot's joint arthropathy in type 2 diabetes mellitus Status: Acute (4) Diabetic foot ulcer Status: Acute - Assessment and Plan (Free Text) Assessment: A/P- 52 year old female with CAD, HTN, DM II was originally admitted with left plantar foot open wound and surrounding erythema . s/p left charcot foot surgery with external fixation POD #7. afebrile leukocytosis has resolved. blood cx- neg x 2 foot wound cx- corynebacterium Initial CT report- ? acute or chronic Om as per report High ESR asper podiatry discussion today no Om of the left plantar foot and no debridement of the plantar wound, only second charcot surgery for next week. as per podiatry they will plan on outpatient wound treatment . plan- advise to continue with renal dose zosyn. day #18 completed 9 days of Iv daptomycin , switched to IV vancomycin 6 days ago since renal function much improved. keep vanco trough <15. advise at least another week of empiric IV abx till second part of the charcot surgery is done since pt. has external hardware in place adn would like to minimize the chance of infection there. also advised if they could get a bone biopsy during second stage of the charcot syurgery so that this way OM could be ruled out vs reimaging. all above d/w patient and she verbalizes full understanding of all above.
[2018-04-04] MEDS: Metoprolol Succinate 100 mg XL Tab PO SCH ×2 (13:45→23:12)
--- NOTE | 2018-04-04 14:03 | CP.PCM.PN ---
Subjective - Date & Time of Evaluation Date of Evaluation: 04/04/18 Time of Evaluation: 14:01 - Subjective Subjective: Podiatry progress note for attending Dr. Macdonald: 51 yo female seen and evaluated 7 days s/p left foot charcot neuroarthropathy reconstruction with external fixation. Patient is AAOx3. Patient was resting comfortably and in no acute distress. She states her pain is 8/10 on VAS scale. Patient denies any other pedal complaints at this time. She denies any overnight N/V/F. Objective - Vital Signs/Intake and Output Vital Signs (last 24 hours): Temp Pulse Resp BP Pulse Ox 97.8 F 71 20 125/67 96 04/04/18 09:00 04/04/18 13:45 04/04/18 09:00 04/04/18 13:45 04/04/18 09:00 - Medications Medications: Current Medications Acetaminophen (Tylenol 325mg Tab) 650 mg PO Q4 PRN PRN Reason: Pain, Mild (1-3) Albuterol/Ipratropium (Duoneb 3 Mg/0.5 Mg (3 Ml) Ud) 3 ml INH RQ6 PRN PRN Reason: Shortness of Breath Alprazolam (Xanax) 0.25 mg PO Q12 [facility] Stop: 04/05/18 10:16 Last Admin: 04/04/18 10:40 Dose: 0.25 mg Amlodipine Besylate (Norvasc) 10 mg PO DAILY [facility] Last Admin: 04/04/18 08:51 Dose: 10 mg Atorvastatin Calcium (Lipitor) 40 mg PO HS [facility] Last Admin: 04/03/18 21:18 Dose: 40 mg Clonidine HCl (Catapres) 0.2 mg PO BID [facility] Last Admin: 04/04/18 08:49 Dose: 0.2 mg Enalapril Maleate (Vasotec) 20 mg PO BID [facility] Last Admin: 04/04/18 08:53 Dose: 20 mg Ferrous Sulfate (Feosol) 325 mg PO TID [facility] Last Admin: 04/04/18 13:43 Dose: 325 mg Hydromorphone HCl (Dilaudid) 1 mg IVP Q4 PRN PRN Reason: Pain, moderate (4-7) Last Admin: 04/04/18 10:40 Dose: 1 mg Vancomycin HCl 750 mg/ Sodium (Chloride) 250 mls @ 166.667 mls/hr IVPB Q12 [facility] PRN Reason: Protocol Last Admin: 04/04/18 08:53 Dose: 166.667 mls/hr Piperacillin Sod/Tazobactam (Sod 2.25 gm/ Sodium Chloride) 100 mls @ 100 mls/ hr IVPB Q8 [facility] PRN Reason: Protocol Last Admin: 04/04/18 08:54 Dose: 100 mls/hr Insulin Detemir (Levemir) 70 units SC HS [facility] Last Admin: 04/03/18 21:20 Dose: 70 units Insulin Human Lispro (Humalog) 0 units SC ACHS [facility] Last Admin: 04/04/18 13:44 Dose: Not Given Insulin Human Lispro (Humalog) 30 units SC AC [facility] Last Admin: 04/04/18 13:44 Dose: 30 units Isosorbide Mononitrate (Imdur) 60 mg PO DAILY [facility] Last Admin: 04/04/18 08:51 Dose: 60 mg Lactulose (Enulose) 10 gm PO DAILY PRN PRN Reason: Constipation Metoprolol Succinate (Toprol Xl) 200 mg PO Q12 [facility] Last Admin: 04/04/18 13:45 Dose: 200 mg Morphine Sulfate (Morphine Extended Release Tab) 30 mg PO Q8@0400,1200,2000 [facility] Last Admin: 04/04/18 13:54 Dose: 30 mg Ondansetron HCl (Zofran Inj) 4 mg IVP Q4 PRN PRN Reason: Nausea/Vomiting Last Admin: 04/01/18 09:22 Dose: 4 mg Oxycodone HCl (Oxycodone Immediate Release Tab) 30 mg PO Q6 PRN PRN Reason: Pain, moderate (4-7) Last Admin: 04/04/18 04:31 Dose: 30 mg Pantoprazole Sodium (Protonix Inj) 40 mg IVP DAILY [facility] Last Admin: 04/04/18 08:52 Dose: 40 mg - Labs Labs: 04/04/18 05:50 04/04/18 05:50 PT 12.1 Seconds (9.8-13.1) 04/02/18 19:00 INR 1.1 04/02/18 19:00 APTT 30.7 Seconds (25.6-37.1) 04/02/18 19:00 - Constitutional Appears: Well, Non-toxic, No Acute Distress - Head Exam Head Exam: ATRAUMATIC, NORMOCEPHALIC - Extremities Exam Additional comments: Dressings kept intact- no strike through noted - Neurological Exam Neurological Exam: Alert, Awake, Oriented x3 - Psychiatric Exam Psychiatric exam: Normal Affect, Normal Mood Assessment and Plan - Assessment and Plan (Free Text) Assessment: 52 yo patient seen at bedside 7 days s/p left foot charcot neuroarthropathy reconstruction using external fixation device Plan: Patient seen and evaluated at the bedside Discussed in detail with Dr. Macdonald Charts and labs reviewed: afrebrile and absent leukocytosis Patient bilateral foot dressings kept intact Left ankle and foot x-rays taken 03/29: external fixator device obscures ankle with no actue fracture or dislocation appreciated, widening of the superolateral ankle mortise question, clinically correlate Left Ankle X-rays reviewed Patient demonstrates awareness of staged procedure for charcot reconstruction and further surgery in about one week assuming health of patient is stable As per medicine, patient high risk, yet stable to be taken to the OR for second surgery Continue to monitor patient blood pressure Medicine - continue treatment regimen Continue to follow ID recommendations on antibiotics Patient likely to be transferred to TCU, podiatry will still follow patient in house for dressing changes Podiatry will continue to follow up patient while in house
--- NOTE | 2018-04-04 21:15 | PN ---
DATE: 04/04/2018 ENDO FOLLOWUP NOTE ROOM: 660. SUBJECTIVE: This is a 52-year-old female with recent uncontrolled type 2 insulin-requiring diabetes, now being followed closely for metabolic management. She also had recent debridement and resection of the left foot with underlying osteomyelitis and concomitant cellulitis and is now being followed closely for metabolic management. Her glucose values are fluctuating, but have ranged from 138 to 218 mg/dL. LABORATORY DATA: Her latest chemistry showed a BUN of 41, sodium 139, potassium 4.2, chloride 102, CO2 of 27, glucose 223 and creatinine 1.9. ASSESSMENT AND PLAN: So at this time, we will continue the same basal insulin given as Levemir at 70 units subcutaneously at bedtime daily as given. We will also continue the prandial insulin given as Humalog 30 units three times a day before meals as ordered. We will obtain serial chemistries and supplement accordingly as needed. We will continue also the low-dose correction scale. We will obtain serial chemistries and supplement accordingly as needed. We will follow. Yesika Vogel MD
[2018-04-04] MEDS: Insulin Detemir 100 Units/ml Inj SC SCH (23:20)
[2018-04-05] MEDS: Morphine 30 mg SR Tab PO SCH ×3 (04:01→22:00)
[2018-04-05] MEDS: Metoprolol Succinate 100 mg XL Tab PO SCH ×2 (08:29→22:07)
[2018-04-05] MEDS: Insulin Lispro (humaLOG) 100 Units/ml Inj SC SCH ×7 (08:30→22:05)
--- NOTE | 2018-04-05 08:35 | CP.PCM.PN ---
Subjective - Date & Time of Evaluation Date of Evaluation: 04/05/18 Time of Evaluation: 08:40 - Subjective Subjective: HAS NOSEBLEEDS THIS AM REFUSES ENT EVAL BECAUSE SHE DOES NOT WANT NOSE PACKED VSS Objective - Vital Signs/Intake and Output Vital Signs (last 24 hours): Temp Pulse Resp BP Pulse Ox 98.4 F 76 20 160/80 H 95 04/05/18 08:28 04/05/18 08:28 04/05/18 08:28 04/05/18 08:28 04/05/18 08:28 - Medications Medications: Current Medications Acetaminophen (Tylenol 325mg Tab) 650 mg PO Q4 PRN PRN Reason: Pain, Mild (1-3) Albuterol/Ipratropium (Duoneb 3 Mg/0.5 Mg (3 Ml) Ud) 3 ml INH RQ6 PRN PRN Reason: Shortness of Breath Alprazolam (Xanax) 0.25 mg PO Q12 [facility] Stop: 04/05/18 10:16 Last Admin: 04/04/18 23:13 Dose: 0.25 mg Amlodipine Besylate (Norvasc) 10 mg PO DAILY [facility] Last Admin: 04/04/18 08:51 Dose: 10 mg Atorvastatin Calcium (Lipitor) 40 mg PO HS [facility] Last Admin: 04/04/18 23:12 Dose: 40 mg Clonidine HCl (Catapres) 0.2 mg PO BID [facility] Last Admin: 04/04/18 16:55 Dose: 0.2 mg Enalapril Maleate (Vasotec) 20 mg PO BID [facility] Last Admin: 04/04/18 16:57 Dose: 20 mg Ferrous Sulfate (Feosol) 325 mg PO TID [facility] Last Admin: 04/04/18 16:55 Dose: 325 mg Hydromorphone HCl (Dilaudid) 1 mg IVP Q4 PRN PRN Reason: Pain, moderate (4-7) Last Admin: 04/05/18 06:14 Dose: 1 mg Piperacillin Sod/Tazobactam (Sod 2.25 gm/ Sodium Chloride) 100 mls @ 100 mls/ hr IVPB Q8 [facility] PRN Reason: Protocol Last Admin: 04/05/18 00:27 Dose: 100 mls/hr Vancomycin HCl 750 mg/ Sodium (Chloride) 250 mls @ 166.667 mls/hr IVPB DAILY [facility] PRN Reason: Protocol Insulin Detemir (Levemir) 70 units SC HS [facility] Last Admin: 04/04/18 23:20 Dose: Not Given Insulin Human Lispro (Humalog) 0 units SC ACHS [facility] Last Admin: 04/04/18 23:19 Dose: Not Given Insulin Human Lispro (Humalog) 30 units SC AC [facility] Last Admin: 04/04/18 16:56 Dose: 30 units Isosorbide Mononitrate (Imdur) 60 mg PO DAILY [facility] Last Admin: 04/04/18 08:51 Dose: 60 mg Lactulose (Enulose) 10 gm PO DAILY PRN PRN Reason: Constipation Metoprolol Succinate (Toprol Xl) 200 mg PO Q12 [facility] Last Admin: 04/04/18 23:12 Dose: 200 mg Morphine Sulfate (Morphine Extended Release Tab) 30 mg PO Q8@0400,1200,2000 [facility] Last Admin: 04/05/18 04:01 Dose: Not Given Ondansetron HCl (Zofran Inj) 4 mg IVP Q4 PRN PRN Reason: Nausea/Vomiting Last Admin: 04/01/18 09:22 Dose: 4 mg Oxycodone HCl (Oxycodone Immediate Release Tab) 30 mg PO Q6 PRN PRN Reason: Pain, moderate (4-7) Last Admin: 04/04/18 20:31 Dose: 30 mg Pantoprazole Sodium (Protonix Inj) 40 mg IVP DAILY [facility] Last Admin: 04/04/18 08:52 Dose: 40 mg - Labs Labs: 04/04/18 05:50 04/05/18 06:05 PT 12.1 Seconds (9.8-13.1) 04/02/18 19:00 INR 1.1 04/02/18 19:00 APTT 30.7 Seconds (25.6-37.1) 04/02/18 19:00 - Constitutional Appears: Chronically Ill - Head Exam Head Exam: ATRAUMATIC, NORMAL INSPECTION, NORMOCEPHALIC - Eye Exam Eye Exam: EOMI, Normal appearance, PERRL Pupil Exam: NORMAL ACCOMODATION, PERRL - ENT Exam ENT Exam: Mucous Membranes Moist, Normal Exam Additional comments: NOSE BLEED - Neck Exam Neck Exam: Full ROM, Normal Inspection. absent: Lymphadenopathy - Respiratory Exam Respiratory Exam: Clear to Ausculation Bilateral, NORMAL BREATHING PATTERN - Cardiovascular Exam Cardiovascular Exam: REGULAR RHYTHM, +S1, +S2. absent: Murmur - GI/Abdominal Exam GI & Abdominal Exam: Soft, Normal Bowel Sounds. absent: Tenderness - Rectal Exam Rectal Exam: NORMAL INSPECTION - Extremities Exam Extremities Exam: Tenderness. absent: Joint Swelling, Pedal Edema Additional comments: L LEG SURGICAL DRESSING ION PLACE - Back Exam Back Exam: NORMAL INSPECTION - Neurological Exam Neurological Exam: Abnormal Gait, Alert, Awake, CN II-XII Intact, Oriented x3 - Psychiatric Exam Psychiatric exam: Normal Affect, Normal Mood - Skin Skin Exam: Dry, Intact, Normal Color, Warm Assessment and Plan - Assessment and Plan (Free Text) Assessment: EPISTAXIS HTN CHF--POST SURGERY--COMBINED DIASTOLIC AND SYSTOLIC DYSFUNCTION NSTEMI--POST PROCEDURE ASHD DM OSTEOMYELITIS OF L FOOT CHARCORT ARTHROPATHY MOF L LEG Plan: CONTINUE CURRENT RX MAY NEED ENT EVAL FOR EPISTAXIS
[2018-04-05] MEDS ORDERED: Nitroglycerin 2% 15 INCH/30 GM TUBE TOP STA (09:43)
[2018-04-05 10:01] LABS: ABG ALLEN TEST YES; ARTERIAL BLOOD GAS HCO3 22.4 mmol/L (21-28); ARTERIAL BLOOD GAS HEMOGLOBIN 10.3 g/dL (11.7-17.4); ARTERIAL BLOOD GAS O2 CAPACITY 14.2 mL/dL (16-24); ARTERIAL BLOOD GAS O2 CONTENT 13.2 ML/dL (15-23); ARTERIAL BLOOD GAS O2 SAT 93.1 % (95-98); ARTERIAL BLOOD GAS PCO2 56 mm/Hg (35-45); ARTERIAL BLOOD GAS PH 7.25 (7.35-7.45); ARTERIAL BLOOD GAS PO2 69 mm/Hg (80-100); ARTERIAL BLOOD GAS TCO2 26.3 mmol/L (22-28)
[2018-04-05 10:02] LABS: BASO # 0.1 K/uL (0.0-0.2); BASO % 0.8 % (0.0-2.0); EOS # 0.3 K/uL (0.0-0.7); EOS % 1.6 % (0.0-4.0); HEMOGLOBIN 10.3 g/dL (12.0-16.0); LYMPH # 3.9 K/uL (1.0-4.3); LYMPH % 23.8 % (20.0-40.0); MEAN CELL VOLUME 83.2 fl (81.0-99.0); MEAN CORPUSCULAR HEMOGLOBIN 26.4 pg (27.0-31.0); MEAN CORPUSCULAR HGB CONC 31.7 g/dL (33.0-37.0); MEAN PLATELET VOLUME 8.1 fl (7.2-11.7); MONO # 1.1 K/uL (0.0-0.8); MONO % 6.5 % (0.0-10.0); NEUT # 10.9 K/uL (1.8-7.0); NEUT % 67.3 % (50.0-75.0); NRBC % 0.1 % (0.0-0.0); RBC 3.91 Mil/uL (3.80-5.20); RED CELL DISTRIBUTION WIDTH 17.8 % (11.5-14.5); WHITE BLOOD COUNT 16.2 K/uL (4.8-10.8)
[2018-04-05 10:23] LABS: TROPONIN I 0.036 ng/mL (0.00-0.120)
--- NOTE | 2018-04-05 10:34 | PCM.RRT ---
IMPREGNATOR AND DRIER Nurse Assessment - Situation [facility]REG[employer]ATOR AND DRIER Responder Arrival Time: 09:25 Location: 6s Room Number: 660-2 [facility] Reason for Call: Hypertension [employer]REG[employer]ATOR [employer] DRIER Called By: RN - IV IV Inserted during IMPREGNATOR AND DRIER?: No - Respiratory Oxygen Delivery Method: Room Air Received Nebulizer Treatments: No Was the Patient Ventilated with Bag/Mask 100% O2?: No Secretions Suctioned?: No Was the Patient Intubated?: No - Ventilator Settings FIO2 (% Oxygen): 50 - Medication Medications Administered During [facility]REGNATOR AND DRIER: hydralazine 20mg iv. dilaudid 1mg iv. labetalol 10mg iv - Diagnostic Test Ordered EKG: No Chest X-Ray: No CT Scan: No CPR started during IMPREGNATOR AND DRIER?: No - Vital Signs Vital Signs: Rapid Response Vital Sign Blood Pressure 222/95 Pulse Rate 91 Respiratory Rate 20 Temperature 97.7 F Oxygen Saturation 95 - Time [facility]REG[employer] [employer] DRIER Ended Time [facility]ATOR [employer] DRIER Ended: 09:50 - Vital Signs at end of [employer]REGNATOR AND DRIER Vital Signs at end of [employer]REG[employer]ATOR [employer] DRIER: Rapid Response End Vital Sign Blood Pressure 193/77 Pulse Rate 94 Respiratory Rate 20 Temperature 97.7 F O2 Sat by Pulse Oximetry 96 - Recommendations IMPREGNATOR AND DRIER Level of Care Recommendations: Remain in current setting I.Reason for IMPREGNATOR AND DRIER - A) Acute Change in Patient: Subjective: 52 y/o female with PMHx of DM, HTN, Osteomyelitis, S/P left foot surgery admitted for acute pulmonary edema. IMPREGNATOR AND DRIER was called at 9:57 due to pt having SOB and not feeling well. IMPREG[employer]ATOR AND DRIER was run by Dr Chandra and her team. Upon arrival Pt vitals were 159/85bp, 99hr, 88 ox sat, and 314 glucose level. on physcal exam pt was in acute distress, but awake and oriented, Heart was difficult to hear due to generalized crackle in all quadrant. Pt was evaluated pulmonary edema due to CHF/ COPD exacerbation. CBC/ CMP/ Trop x1, ABG and EKG/ Portable chest xray / echo were ordered. Pt was given 2 set of 40mg Lasix. Pt was transferred to ICU for further management. Upon arrival to ICU, Pt was put on Bipap. Pt felt better, Vitals Improved. IMPREGNATOR AND DRIER finished at 10:14. - Respiratory Oxygen Delivery Method: Room Air - Constitutional Appears: Well, Non-toxic, No Acute Distress - Head Head Exam: ATRAUMATIC, NORMAL INSPECTION, NORMOCEPHALIC - Eyes Eye Exam: EOMI, Normal appearance, PERRL - Respiratory Exam Additional comments: Crackle noted in all quadrant - Cardiovascular Exam Additional comments: unable to hear heart sound due to crackle - GI/Abdominal Exam GI & Abdominal Exam: Soft, Normal Bowel Sounds. absent: Tenderness - Neurological Exam Neurological Exam: Alert, Awake - Extremities Exam Extremities Exam: Full ROM, Normal Capillary Refill, Normal Inspection Plan - Assessment of Findings&Treatment Plan 52 y/o female with PMHx of DM, HTN, Osteomyelitis, S/P left foot surgery admitted for acute pulmonary edema. IMPREGNATOR [employer] DRIER was called for SBO due to pulm edema Pt was complaining of SBO Pt Ox was 88%, BP 159/85 PE: crackle noted upon auscultation EKG: WNL Chest xray: diffuse pul edema noted PRobnp 992H Trop Negative ABG: suggest of Respiratory acidosis and metabolic acidosis PCO3 56H, HCO3 22.4, PH 7.25 Echo pending Plan Give 40 mg lasix x2 CONTINUE MONITORING IN ICU CONTINUE bIPAP F/U ECHO MONITOR VITALS
--- NOTE | 2018-04-05 11:09 | CP.PCM.PN ---
Subjective - Date & Time of Evaluation Date of Evaluation: 04/05/18 Time of Evaluation: 11:06 - Subjective Subjective: Podiatry progress note SURGICAL PHYSICIAN ASSISTANT was called on patient due to complaints of shortness of breath. Patient was not seen as she was being transferred to ICU Objective - Vital Signs/Intake and Output Vital Signs (last 24 hours): Temp Pulse Resp BP Pulse Ox 98.4 F 76 20 160/80 H 95 04/05/18 08:28 04/05/18 08:28 04/05/18 08:28 04/05/18 08:28 04/05/18 08:28 - Medications Medications: Current Medications Acetaminophen (Tylenol 325mg Tab) 650 mg PO Q4 PRN PRN Reason: Pain, Mild (1-3) Albuterol/Ipratropium (Duoneb 3 Mg/0.5 Mg (3 Ml) Ud) 3 ml INH RQ6 PRN PRN Reason: Shortness of Breath Last Admin: 04/05/18 10:00 Dose: 3 ml Amlodipine Besylate (Norvasc) 10 mg PO DAILY [facility] Last Admin: 04/05/18 08:33 Dose: 10 mg Atorvastatin Calcium (Lipitor) 40 mg PO HS [facility] Last Admin: 04/04/18 23:12 Dose: 40 mg Clonidine HCl (Catapres) 0.2 mg PO BID [facility] Last Admin: 04/05/18 08:30 Dose: 0.2 mg Enalapril Maleate (Vasotec) 20 mg PO BID [facility] Last Admin: 04/05/18 08:30 Dose: 20 mg Ferrous Sulfate (Feosol) 325 mg PO TID [facility] Last Admin: 04/05/18 08:31 Dose: 325 mg Hydromorphone HCl (Dilaudid) 1 mg IVP Q4 PRN PRN Reason: Pain, moderate (4-7) Last Admin: 04/05/18 10:50 Dose: 1 mg Piperacillin Sod/Tazobactam (Sod 2.25 gm/ Sodium Chloride) 100 mls @ 100 mls/ hr IVPB Q8 [facility] PRN Reason: Protocol Last Admin: 04/05/18 08:38 Dose: 100 mls/hr Vancomycin HCl 750 mg/ Sodium (Chloride) 250 mls @ 166.667 mls/hr IVPB DAILY [facility] PRN Reason: Protocol Last Admin: 04/05/18 08:41 Dose: 166.667 mls/hr Insulin Detemir (Levemir) 70 units SC HS [facility] Last Admin: 04/04/18 23:20 Dose: Not Given Insulin Human Lispro (Humalog) 0 units SC ACHS [facility] Last Admin: 04/05/18 08:56 Dose: Not Given Insulin Human Lispro (Humalog) 30 units SC AC [facility] Last Admin: 04/04/18 16:56 Dose: 30 units Isosorbide Mononitrate (Imdur) 60 mg PO DAILY [facility] Last Admin: 04/05/18 08:33 Dose: 60 mg Lactulose (Enulose) 10 gm PO DAILY PRN PRN Reason: Constipation Metoprolol Succinate (Toprol Xl) 200 mg PO Q12 [facility] Last Admin: 04/05/18 08:29 Dose: 200 mg Morphine Sulfate (Morphine Extended Release Tab) 30 mg PO Q8@0400,1200,2000 [facility] Last Admin: 04/05/18 04:01 Dose: Not Given Ondansetron HCl (Zofran Inj) 4 mg IVP Q4 PRN PRN Reason: Nausea/Vomiting Last Admin: 04/01/18 09:22 Dose: 4 mg Oxycodone HCl (Oxycodone Immediate Release Tab) 30 mg PO Q6 PRN PRN Reason: Pain, moderate (4-7) Last Admin: 04/04/18 20:31 Dose: 30 mg Pantoprazole Sodium (Protonix Inj) 40 mg IVP DAILY [facility] Last Admin: 04/05/18 08:27 Dose: 40 mg - Labs Labs: 04/05/18 09:57 04/05/18 06:05 PT 12.1 Seconds (9.8-13.1) 04/02/18 19:00 INR 1.1 04/02/18 19:00 APTT 30.7 Seconds (25.6-37.1) 04/02/18 19:00 - Extremities Exam Additional comments: Patient dressing bilaterally was kept intact Assessment and Plan - Assessment and Plan (Free Text) Assessment: 52 y/o female POD 8 surgery 1 for charcot reconstruction Plan: Patient was not seen as SURGICAL PHYSICIAN ASSISTANT was called Patient second surgery postponed until patient stable for procedure Podiatry will continue to follow patient in house
--- NOTE | 2018-04-05 14:10 | CP.CCUPN ---
CCU Subjective - Physician Review Subjective (Free Text): 03/29/18 7:48 The patient was Seen/interviewed and examined by me at the bedside during ICU round, Medical records reviewed and Management issues were discussed and formulated with the house staff. Events reviewed 52 Years old Female with past medical history of HTN, type 2 diabetes, obesity, peripheral vascular disease, anxiety, S/P R transmet amputation, anemia of chronic disease. and left Charcot arthropathy and right superficial ulceration. 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; She underwent Left tendoachilles lengthening, charcot reconstruction with relocation of joint with external fixation Procedure done under General Anesthesia and was uneventful Postoperative she was hypoxemic despite placed on 100% FIO2, urgently orally Re- intubated in the PACU CXR with acute pulmonary edema, Received IV Lasix Admitted to ICU 03/29, orally intubated, BG >400, started on RISS with Coverage ICU course for 03/29 admission noted for Trop elevation of 0.2510-1.0900, Pt was evaluated by cardiology, started on ASA/Plavix (on hold for Epistaxis) , Lovenox , Statins, beta ash and Imdur 03/30, she was successfully extubated, Patient condition stabilized and she was transferred out of ICU HAND POLISHER was called this morning for severe respiratory distress CXR with acute pulmonary edema Placed on BIPAP, intially requiring 100% FIO2 Received IV Lasix total of 80 mg, with good urine output Awake, more comfortable now and was able to come off BIPAP Afebrile, On IV Vanco and Zosyn she feels better, denies any chest pain or SOB No Vasopressors This morning labs revealed Leucocytosis to K16.2, slight worsening renal function BUN/Cr up to 48/1.7 CCU Objective - Vital Signs / Intake & Output Vital Signs (Last 4 hours): Vital Signs Temp Pulse Resp BP Pulse Ox 04/05/18 12:31 98.2 F 82 17 138/68 100 04/05/18 11:15 83 04/05/18 10:45 94 H 29 H 145/54 L 100 04/05/18 10:30 100 H 29 H 172/89 H 100 04/05/18 10:12 98.0 F 110 H 39 H 195/92 H 100 Intake and Output (Last 8hrs): Intake & Output 04/04/18 04/05/18 04/05/18 22:59 06:59 14:59 Output Total 1000 Balance -1000 Output: Urine 1000 Urethral (Acevedo) 1000 Other: # Voids Urethral (Acevedo) 1 - Physical Exam Head: Positive for: Atraumatic, Normocephalic. Negative for: Tenderness, Contusion, Swelling Pupils: Positive for: PERRL. Negative for: Sluggish, Non-Reactive Extroacular Muscles: Positive for: EOMI. Negative for: Gaze Palsy Conjunctiva: Positive for: Normal. Negative for: Injected, Icteric Ears: Positive for: Normal Mouth: Positive for: Moist Mucous Membranes Pharnyx: Positive for: Normal. Negative for: ERYTHEMA Nose (Internal): Positive for: Normal Inspection, No Active Bleeding Neck: Positive for: Normal Range of Motion, Trachea Midline. Negative for: Meningeal Signs, MIDLINE TENDERNESS, Paraspinal Tenderness, JVD, Lymphadenopathy , Bruit, Other Respiratory/Chest: Positive for: Decreased Breath Sounds, Rales, Tachypneic. Negative for: Clear to Auscultation, Good Air Exchange, Respiratory Distress, Accessory Muscle Use, Wheezes, Rhonchi Cardiovascular: Positive for: Regular Rate and Rhythm, Normal S1, S2, Peripheal Pulses Present, Tachycardic. Negative for: Murmurs, Irregular Rhythm Abdomen: Positive for: Normal Bowel Sounds. Negative for: Tenderness, Distention, Mass/Organomegaly Upper Extremity: Positive for: Normal Inspection. Negative for: Cyanosis, Edema Lower Extremity: Positive for: Normal Inspection. Negative for: Edema, CALF TENDERNESS Neurological: Positive for: Motor Func Grossly Intact, Normal Sensory Function Psychiatric: Positive for: Alert, Oriented x 3, Anxious - Medications Active Medications: Active Medications Generic Name Dose Route Start Last Admin Trade Name Freq PRN Reason Stop Dose Admin Acetaminophen 650 mg 03/28/18 12:35 Tylenol 325mg Tab PO Q4 PRN Pain, Mild (1-3) Albuterol/Ipratropium 3 ml 03/28/18 19:02 04/05/18 10:00 Duoneb 3 Mg/0.5 Mg (3 Ml) Ud INH 3 ml RQ6 PRN Administration Shortness of Breath Amlodipine Besylate 10 mg 04/03/18 09:00 09/18/18 08:33 Norvasc PO 10 mg DAILY [facility] Administration Atorvastatin Calcium 40 mg 03/29/18 22:00 04/04/18 23:12 Lipitor PO 40 mg HS [facility] Administration Clonidine HCl 0.2 mg 04/02/18 17:00 04/05/18 08:30 Catapres PO 0.2 mg BID [facility] Administration Enalapril Maleate 20 mg 04/02/18 10:30 04/05/18 08:30 Vasotec PO 20 mg BID [facility] Administration Ferrous Sulfate 325 mg 04/04/18 13:00 04/05/18 08:31 Feosol PO 325 mg TID [facility] Administration Hydromorphone HCl 1 mg 03/29/18 11:35 04/05/18 10:50 Dilaudid IVP 1 mg Q4 PRN Administration Pain, moderate (4-7) Piperacillin Sod/Tazobactam 100 mls @ 100 mls/hr 04/03/18 18:00 04/05/18 08: 38 Sod 2.25 gm/ Sodium Chloride IVPB 100 mls/hr Q8 [facility] Administration Protocol Vancomycin HCl 750 mg/ Sodium 250 mls @ 166.667 mls/hr 04/05/18 09:00 08:41 Chloride IVPB 166.667 mls/hr DAILY [facility] Administration Protocol Insulin Detemir 70 units 03/29/18 22:00 04/04/18 23:20 Levemir SC Not Given HS [facility] Insulin Human Lispro 0 units 03/29/18 16:30 04/05/18 08:56 Humalog SC Not Given ACHS [facility] Insulin Human Lispro 30 units 03/30/18 07:30 04/05/18 08:30 Humalog SC Not Given AC [facility] Isosorbide Mononitrate 60 mg 03/29/18 10:15 04/05/18 08:33 Imdur PO 60 mg DAILY [facility] Administration Lactulose 10 gm 04/03/18 10:15 Enulose PO DAILY PRN Constipation Metoprolol Succinate 200 mg 03/29/18 21:00 04/05/18 08:29 Toprol Xl PO 200 mg Q12 [facility] Administration Morphine Sulfate 30 mg 03/31/18 04:00 04/05/18 04:01 Morphine Extended Release Tab PO Not Given Q8@0400,1200,2000 [facility] Ondansetron HCl 4 mg 03/29/18 12:43 09/14/18 09:22 Zofran Inj IVP 4 mg Q4 PRN Administration Nausea/Vomiting Oxycodone HCl 30 mg 03/30/18 09:46 04/04/18 20:31 Oxycodone Immediate Release Tab PO 30 mg Q6 PRN Administration Pain, moderate (4-7) Pantoprazole Sodium 40 mg 03/29/18 09:00 04/05/18 08:27 Protonix Inj IVP 40 mg DAILY [facility] Administration - Patient Studies Lab Studies: Lab Studies 04/05/18 04/05/18 04/05/18 Range/Units 09:57 09:57 09:43 WBC 16.2 H D (4.8-10.8) K/uL RBC 3.91 (3.80-5.20) Mil/uL Hgb 10.3 L D (12.0-16.0) g/dL Hct 32.5 L (34.0-47.0) % MCV 83.2 (81.0-99.0) fl MCH 26.4 L (27.0-31.0) pg MCHC 31.7 L (33.0-37.0) g/dL RDW 17.8 H (11.5-14.5) % Plt Count 488 H D (130-400) K/uL MPV 8.1 (7.2-11.7) fl Neut % (Auto) 67.3 (50.0-75.0) % Lymph % (Auto) 23.8 (20.0-40.0) % [place] % (Auto) 6.5 (0.0-10.0) % Eos % (Auto) 1.6 (0.0-4.0) % Baso % (Auto) 0.8 (0.0-2.0) % Neut # (Auto) 10.9 H (1.8-7.0) K/uL Lymph # (Auto) 3.9 (1.0-4.3) K/uL [place] # (Auto) 1.1 H (0.0-0.8) K/uL Eos # (Auto) 0.3 (0.0-0.7) K/uL Baso # (Auto) 0.1 (0.0-0.2) K/uL pCO2 56 H (35-45) mm/Hg pO2 69 L (80-100) mm/Hg HCO3 22.4 (21-28) mmol/L ABG pH 7.25 L (7.35-7.45) ABG Total CO2 26.3 (22-28) mmol/L ABG O2 Saturation 93.1 L (95-98) % ABG O2 Content 13.2 L (15-23) ML/dL ABG Base Excess -3.1 L (-2.0-3.0) mmol/L ABG Hemoglobin 10.3 L (11.7-17.4) g/dL ABG Carboxyhemoglobin 1.8 H (0.5-1.5) % POC ABG HHb (Measured) 6.7 H (0.0-5.0) % ABG Methemoglobin 1.1 (0.0-3.0) % ABG O2 Capacity 14.2 L (16-24) mL/dL Tony Test Yes A-a O2 Difference 574.0 mm/Hg Hgb O2 Saturation 90.4 L (95.0-98.0) % Vent Mode Nrm FiO2 100.0 % Sodium (132-148) mmol/l Potassium (3.6-5.0) MMOL/L Chloride (98-107) mmol/L Carbon Dioxide (22-30) mmol/L Anion Gap (10-20) BUN (7-17) mg/dl Creatinine (0.7-1.2) mg/dl Est GFR ( Amer) Est GFR (Non-Af Amer) POC Glucose (mg/dL) (65-110) mg/dL Random Glucose (65-105) mg/dL Calcium (8.4-10.2) mg/dL Troponin I 0.0360 (0.00-0.120) ng/mL NT-Pro-B Natriuret Pep 992 H (0-900) pg/ml Vancomycin Trough (5.0-10.0) ug/mL 04/05/18 04/05/18 04/05/18 Range/Units 09:28 07:30 06:05 WBC (4.8-10.8) K/uL RBC (3.80-5.20) Mil/uL Hgb (12.0-16.0) g/dL Hct (34.0-47.0) % MCV (81.0-99.0) fl MCH (27.0-31.0) pg MCHC (33.0-37.0) g/dL RDW (11.5-14.5) % Plt Count (130-400) K/uL MPV (7.2-11.7) fl Neut % (Auto) (50.0-75.0) % Lymph % (Auto) (20.0-40.0) % [place] % (Auto) (0.0-10.0) % Eos % (Auto) (0.0-4.0) % Baso % (Auto) (0.0-2.0) % Neut # (Auto) (1.8-7.0) K/uL Lymph # (Auto) (1.0-4.3) K/uL [place] # (Auto) (0.0-0.8) K/uL Eos # (Auto) (0.0-0.7) K/uL Baso # (Auto) (0.0-0.2) K/uL pCO2 (35-45) mm/Hg pO2 (80-100) mm/Hg HCO3 (21-28) mmol/L ABG pH (7.35-7.45) ABG Total CO2 (22-28) mmol/L ABG O2 Saturation (95-98) % ABG O2 Content (15-23) ML/dL ABG Base Excess (-2.0-3.0) mmol/L ABG Hemoglobin (11.7-17.4) g/dL ABG Carboxyhemoglobin (0.5-1.5) % POC ABG HHb (Measured) (0.0-5.0) % ABG Methemoglobin (0.0-3.0) % ABG O2 Capacity (16-24) mL/dL Tony Test A-a O2 Difference mm/Hg Hgb O2 Saturation (95.0-98.0) % Vent Mode FiO2 % Sodium 138 (132-148) mmol/l Potassium 4.5 (3.6-5.0) MMOL/L Chloride 104 (98-107) mmol/L Carbon Dioxide 25 (22-30) mmol/L Anion Gap 14 (10-20) BUN 48 H (7-17) mg/dl Creatinine 1.7 H (0.7-1.2) mg/dl Est GFR ( Amer) 38 Est GFR (Non-Af Amer) 32 POC Glucose (mg/dL) 314 H (65-110) mg/dL Random Glucose 228 H (65-105) mg/dL Calcium 9.0 (8.4-10.2) mg/dL Troponin I (0.00-0.120) ng/mL NT-Pro-B Natriuret Pep (0-900) pg/ml Vancomycin Trough 12.4 H (5.0-10.0) ug/mL 04/05/18 04/04/18 04/04/18 Range/Units 05:51 23:43 21:47 WBC (4.8-10.8) K/uL RBC (3.80-5.20) Mil/uL Hgb (12.0-16.0) g/dL Hct (34.0-47.0) % MCV (81.0-99.0) fl MCH (27.0-31.0) pg MCHC (33.0-37.0) g/dL RDW (11.5-14.5) % Plt Count (130-400) K/uL MPV (7.2-11.7) fl Neut % (Auto) (50.0-75.0) % Lymph % (Auto) (20.0-40.0) % [place] % (Auto) (0.0-10.0) % Eos % (Auto) (0.0-4.0) % Baso % (Auto) (0.0-2.0) % Neut # (Auto) (1.8-7.0) K/uL Lymph # (Auto) (1.0-4.3) K/uL [place] # (Auto) (0.0-0.8) K/uL Eos # (Auto) (0.0-0.7) K/uL Baso # (Auto) (0.0-0.2) K/uL pCO2 (35-45) mm/Hg pO2 (80-100) mm/Hg HCO3 (21-28) mmol/L ABG pH (7.35-7.45) ABG Total CO2 (22-28) mmol/L ABG O2 Saturation (95-98) % ABG O2 Content (15-23) ML/dL ABG Base Excess (-2.0-3.0) mmol/L ABG Hemoglobin (11.7-17.4) g/dL ABG Carboxyhemoglobin (0.5-1.5) % POC ABG HHb (Measured) (0.0-5.0) % ABG Methemoglobin (0.0-3.0) % ABG O2 Capacity (16-24) mL/dL Tony Test A-a O2 Difference mm/Hg Hgb O2 Saturation (95.0-98.0) % Vent Mode FiO2 % Sodium (132-148) mmol/l Potassium (3.6-5.0) MMOL/L Chloride (98-107) mmol/L Carbon Dioxide (22-30) mmol/L Anion Gap (10-20) BUN (7-17) mg/dl Creatinine (0.7-1.2) mg/dl Est GFR ( Amer) Est GFR (Non-Af Amer) POC Glucose (mg/dL) 228 H 189 H 56 L (65-110) mg/dL Random Glucose (65-105) mg/dL Calcium (8.4-10.2) mg/dL Troponin I (0.00-0.120) ng/mL NT-Pro-B Natriuret Pep (0-900) pg/ml Vancomycin Trough (5.0-10.0) ug/mL 04/04/18 Range/Units 15:50 WBC (4.8-10.8) K/uL RBC (3.80-5.20) Mil/uL Hgb (12.0-16.0) g/dL Hct (34.0-47.0) % MCV (81.0-99.0) fl MCH (27.0-31.0) pg MCHC (33.0-37.0) g/dL RDW (11.5-14.5) % Plt Count (130-400) K/uL MPV (7.2-11.7) fl Neut % (Auto) (50.0-75.0) % Lymph % (Auto) (20.0-40.0) % [place] % (Auto) (0.0-10.0) % Eos % (Auto) (0.0-4.0) % Baso % (Auto) (0.0-2.0) % Neut # (Auto) (1.8-7.0) K/uL Lymph # (Auto) (1.0-4.3) K/uL [place] # (Auto) (0.0-0.8) K/uL Eos # (Auto) (0.0-0.7) K/uL Baso # (Auto) (0.0-0.2) K/uL pCO2 (35-45) mm/Hg pO2 (80-100) mm/Hg HCO3 (21-28) mmol/L ABG pH (7.35-7.45) ABG Total CO2 (22-28) mmol/L ABG O2 Saturation (95-98) % ABG O2 Content (15-23) ML/dL ABG Base Excess (-2.0-3.0) mmol/L ABG Hemoglobin (11.7-17.4) g/dL ABG Carboxyhemoglobin (0.5-1.5) % POC ABG HHb (Measured) (0.0-5.0) % ABG Methemoglobin (0.0-3.0) % ABG O2 Capacity (16-24) mL/dL Tony Test A-a O2 Difference mm/Hg Hgb O2 Saturation (95.0-98.0) % Vent Mode FiO2 % Sodium (132-148) mmol/l Potassium (3.6-5.0) MMOL/L Chloride (98-107) mmol/L Carbon Dioxide (22-30) mmol/L Anion Gap (10-20) BUN (7-17) mg/dl Creatinine (0.7-1.2) mg/dl Est GFR ( Amer) Est GFR (Non-Af Amer) POC Glucose (mg/dL) 115 H (65-110) mg/dL Random Glucose (65-105) mg/dL Calcium (8.4-10.2) mg/dL Troponin I (0.00-0.120) ng/mL NT-Pro-B Natriuret Pep (0-900) pg/ml Vancomycin Trough (5.0-10.0) ug/mL Laboratory Results - last 24 hr 04/04/18 04/04/18 04/04/18 15:50 21:47 23:43 WBC RBC Hgb Hct MCV MCH MCHC RDW Plt Count MPV Neut % (Auto) Lymph % (Auto) [place] % (Auto) Eos % (Auto) Baso % (Auto) Neut # (Auto) Lymph # (Auto) [place] # (Auto) Eos # (Auto) Baso # (Auto) pCO2 pO2 HCO3 ABG pH ABG Total CO2 ABG O2 Saturation ABG O2 Content ABG Base Excess ABG Hemoglobin ABG Carboxyhemoglobin POC ABG HHb (Measured) ABG Methemoglobin ABG O2 Capacity Tony Test A-a O2 Difference Hgb O2 Saturation Vent Mode FiO2 Sodium Potassium Chloride Carbon Dioxide Anion Gap BUN Creatinine Est GFR ( Amer) Est GFR (Non-Af Amer) POC Glucose (mg/dL) 115 H 56 L 189 H Random Glucose Calcium Troponin I NT-Pro-B Natriuret Pep Vancomycin Trough 04/05/18 04/05/18 04/05/18 05:51 06:05 07:30 WBC RBC Hgb Hct MCV MCH MCHC RDW Plt Count MPV Neut % (Auto) Lymph % (Auto) [place] % (Auto) Eos % (Auto) Baso % (Auto) Neut # (Auto) Lymph # (Auto) [place] # (Auto) Eos # (Auto) Baso # (Auto) pCO2 pO2 HCO3 ABG pH ABG Total CO2 ABG O2 Saturation ABG O2 Content ABG Base Excess ABG Hemoglobin ABG Carboxyhemoglobin POC ABG HHb (Measured) ABG Methemoglobin ABG O2 Capacity Tony Test A-a O2 Difference Hgb O2 Saturation Vent Mode FiO2 Sodium 138 Potassium 4.5 Chloride 104 Carbon Dioxide 25 Anion Gap 14 BUN 48 H Creatinine 1.7 H Est GFR ( Amer) 38 Est GFR (Non-Af Amer) 32 POC Glucose (mg/dL) 228 H Random Glucose 228 H Calcium 9.0 Troponin I NT-Pro-B Natriuret Pep Vancomycin Trough 12.4 H 04/05/18 04/05/18 04/05/18 09:28 09:43 09:57 WBC 16.2 H D RBC 3.91 Hgb 10.3 L D Hct 32.5 L MCV 83.2 MCH 26.4 L MCHC 31.7 L RDW 17.8 H Plt Count 488 H D MPV 8.1 Neut % (Auto) 67.3 Lymph % (Auto) 23.8 [place] % (Auto) 6.5 Eos % (Auto) 1.6 Baso % (Auto) 0.8 Neut # (Auto) 10.9 H Lymph # (Auto) 3.9 [place] # (Auto) 1.1 H Eos # (Auto) 0.3 Baso # (Auto) 0.1 pCO2 56 H pO2 69 L HCO3 22.4 ABG pH 7.25 L ABG Total CO2 26.3 ABG O2 Saturation 93.1 L ABG O2 Content 13.2 L ABG Base Excess -3.1 L ABG Hemoglobin 10.3 L ABG Carboxyhemoglobin 1.8 H POC ABG HHb (Measured) 6.7 H ABG Methemoglobin 1.1 ABG O2 Capacity 14.2 L Tony Test Yes A-a O2 Difference 574.0 Hgb O2 Saturation 90.4 L Vent Mode Nrm FiO2 100.0 Sodium Potassium Chloride Carbon Dioxide Anion Gap BUN Creatinine Est GFR ( Amer) Est GFR (Non-Af Amer) POC Glucose (mg/dL) 314 H Random Glucose Calcium Troponin I NT-Pro-B Natriuret Pep Vancomycin Trough 04/05/18 09:57 WBC RBC Hgb Hct MCV MCH MCHC RDW Plt Count MPV Neut % (Auto) Lymph % (Auto) [place] % (Auto) Eos % (Auto) Baso % (Auto) Neut # (Auto) Lymph # (Auto) [place] # (Auto) Eos # (Auto) Baso # (Auto) pCO2 pO2 HCO3 ABG pH ABG Total CO2 ABG O2 Saturation ABG O2 Content ABG Base Excess ABG Hemoglobin ABG Carboxyhemoglobin POC ABG HHb (Measured) ABG Methemoglobin ABG O2 Capacity Tony Test A-a O2 Difference Hgb O2 Saturation Vent Mode FiO2 Sodium Potassium Chloride Carbon Dioxide Anion Gap BUN Creatinine Est GFR ( Amer) Est GFR (Non-Af Amer) POC Glucose (mg/dL) Random Glucose Calcium Troponin I 0.0360 NT-Pro-B Natriuret Pep 992 H Vancomycin Trough EKG/Cardiology Studies: Cardiology / EKG Studies 04/05/18 ELECTROCARDIOGRAM Routine 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 Blood Sugar Results: 376 Critical Care Progress Note - Extremities/Vascular Does the Patient have a Central Venous Catheter?: No Does the Patient need a Central Venous Catheter?: No Does the Patient have a Acevedo Catheter?: No Does the Patient need a Acevedo Catheter?: No - Nutrition Nutrition: Nutrition Category Date Time Status Consistent Carbohydrate [DIET] Diets 03/28/18 Lunch Active Assessment/Plan (1) Acute respiratory failure with hypoxia Current Visit: Yes Status: Acute Priority: High Comment: Sec to acute pulmonary edema, Continue IV diuresis, Strict I&O Aggressive pulmonary toilet, chest PT, suctioning BD nebs q 6h prn (2) Charcot's joint arthropathy in type 2 diabetes mellitus Current Visit: Yes Status: Acute Priority: High Comment: POD #1 S/P Left tendoachilles lengthening, charcot reconstruction with relocation of joint with external fixation Follow up LABS/LYTES/CBC, XR, EKG Perioperative Antibiotics with IV Vanco and Piperacillin Sod/Tazobactam Pain control with PRN Tylenol and Oxycodone Morphine Sulfate ( Extended Release Tab) 30 mg PO Q8H (3) Elevated troponin Current Visit: Yes Status: Acute Priority: High Comment: Trop elevation of 0.2510-1.0900, Pt started on ASA/Plavix , Lovenox, Statins, beta ash and Imdur Cardiolog consult (4) Acute pulmonary edema Current Visit: Yes Status: Acute Priority: High Comment: Continue diuresis to optimize fluid status Last 24H I&O 1050/4800 Lasix 40 mg IVP Strict I&O, daily Wt Trend Trop level and pro-BNP (5) Diabetes mellitus with hyperglycemia Current Visit: Yes Status: Chronic Priority: High Comment: Tight glycemic control, RISS with Coverage Endocrine consult
--- NOTE | 2018-04-05 14:14 | CARD ---
APPROVED REPORT Date of service: 04/05/2018 EXAM: Two-dimensional and M-mode echocardiogram with Doppler and color Doppler. Other Information Quality : AverageRhythm : NSR Technically limited study due to Pt on Bipap. INDICATION Dyspnea 2D DIMENSIONS IVSd1.50 (0.7-1.1cm)LVDd5.23 (3.9-5.9cm) LVOT Diameter2.12 (1.8-2.4cm)PWd1.45 (0.7-1.1cm) IVSs1.99 (0.8-1.2cm)LVDs3.41 (2.5-4.0cm) FS (%) 34.9 %PWs1.72 (0.8-1.2cm) M-Mode DIMENSIONS Left Atrium (MM)4.81 (2.5-4.0cm)IVSd1.56 (0.7-1.1cm) Aortic Root2.88 (2.2-3.7cm)LVDd5.59 (4.0-5.6cm) Aortic Cusp Exc.1.59 (1.5-2.0cm)PWd1.47 (0.7-1.1cm) IVSs1.81 cmFS (%) 30 % LVDs3.94 (2.0-3.8cm)PWs1.72 cm Aortic Valve AoV Peak Ngmsvnpo116.0cm/sAoV VTI37.9cmAO Peak GR.12mmHg LVOT Peak Knxhhstd57.3cm/sLVOT VTI18.98cmAO Mean GR.7mmHg Mitral Valve MV E Hiiryuzv904.4cm/sMV DECEL [id number] A Wggeqxga69.8cm/s MV GVK79brI/A ratio1.3MVA (PHT)4.16cm2 TDI Lateral E' Peak V6.52cm/sMedial E' Peak V6.11cm/sE/Lateral E'17.1 E/Medial E'18.2 Tricuspid Valve [id number] LEFT VENTRICLE The left ventricle is normal size. There is moderate concentric left ventricular hypertrophy. The left ventricular systolic function is normal. The estimated ejection fraction is 55% No regional wall motion abnormalities noted.. The left ventricular diastolic function is normal. No left ventricle thrombus noted on this study. There is no ventricular septal defect visualized. There is no mass noted in the left ventricle. RIGHT VENTRICLE The right ventricle is normal size. There is normal right ventricular wall thickness. The right ventricular systolic function is normal. ATRIA The left atrium size is moderately dilated The right atrium size is normal. The interatrial septum is intact with no evidence for an atrial septal defect. AORTIC VALVE The aortic valve is normal in structure. Aortic valve sclerosis present No aortic regurgitation is present. There is no aortic valvular stenosis. MITRAL VALVE The mitral valve is normal in structure. There is no mitral valve stenosis. There is no mitral valve regurgitation noted. TRICUSPID VALVE The tricuspid valve is normal in structure. There is trivial tricuspid valve regurgitation noted. PASP within normal limits PULMONIC VALVE The pulmonary valve is normal in structure. There is no pulmonic valvular regurgitation. GREAT VESSELS The aortic root is normal in size. The ascending aorta is normal in size. The pulmonary artery is normal. The IVC is normal in size and collapses >50% with inspiration. PERICARDIAL EFFUSION There is no pericardial effusion. <Conclusion> Dilated left atrium Moderate LVH Normal LV function The estimated ejection fraction is 55%
--- NOTE | 2018-04-05 14:44 | RAD ---
Date of service: 04/05/2018 HISTORY: Dyspnea COMPARISON: Portable chest 03/29/2018. FINDINGS: Patient has been extubated apparently with right PICC unchanged in position. LUNGS: Study is overpenetrated. Bilateral reticular markings are prominent though hilar vascular markings appear diminished as well as prominent cardiac silhouette. Consider potential decompensation in CHF or atypical pneumonitis. PLEURA: No significant pleural effusion identified, no pneumothorax apparent. CARDIOVASCULAR: See lung section above. OSSEOUS STRUCTURES: No significant abnormalities. VISUALIZED UPPER ABDOMEN: Normal. OTHER FINDINGS: None. IMPRESSION: Increased interstitial markings could reflect decompensation in CHF although hilar vascular markings are not increased increased in the interval. As an alternative, pattern may reflect atypical pneumonitis. Further clinical correlation recommended. No pleural effusion or pneumothorax bilaterally. Patient is apparently been extubated in the interval.
--- NOTE | 2018-04-05 16:19 | CARD ---
APPROVED REPORT Date of service: 04/05/2018 <Conclusion> Normal sinus rhythm Possible Left atrial enlargement Nonspecific ST and T wave abnormality Abnormal ECG
[2018-04-05 17:39] LABS: BASO % 0.6 % (0.0-2.0); EOS % 0.2 % (0.0-4.0); HEMOGLOBIN 7.8 g/dL (12.0-16.0); LYMPH # 0.6 K/uL (1.0-4.3); LYMPH % 7.2 % (20.0-40.0); MEAN CELL VOLUME 82.6 fl (81.0-99.0); MEAN CORPUSCULAR HEMOGLOBIN 27.2 pg (27.0-31.0); MEAN CORPUSCULAR HGB CONC 32.9 g/dL (33.0-37.0); MEAN PLATELET VOLUME 7.9 fl (7.2-11.7); MONO # 0.4 K/uL (0.0-0.8); MONO % 4.6 % (0.0-10.0); NEUT # 7.3 K/uL (1.8-7.0); NEUT % 87.4 % (50.0-75.0); PLATELET COUNT 292 K/uL (130-400); RBC 2.86 Mil/uL (3.80-5.20); RED CELL DISTRIBUTION WIDTH 17.3 % (11.5-14.5); WHITE BLOOD COUNT 8.3 K/uL (4.8-10.8)
[2018-04-05 17:51] LABS: CALCIUM 8.9 mg/dL (8.4-10.2)
[2018-04-05 18:06] LABS: BANDS 3 % (0-2); LYMPHOCYTE 8 % (20-50); MONOCYTE 4 % (0-10); NEUTROPHIL 85 % (42-75); PLATELET ESTIMATE NORMAL (NORMAL); TOTAL CELLS COUNTED 100
[2018-04-05 18:07] LABS: ANISOCYTOSIS MODERATE; HYPOCHROMIC SLIGHT; MICROCYTOSIS SLIGHT; OVALOCYTES SLIGHT; POIKILOCYTOSIS SLIGHT; POLYCHROMIC SLIGHT
--- NOTE | 2018-04-05 18:44 | RAD ---
Date of service: 04/05/2018 PROCEDURE: CHEST RADIOGRAPH, 1 VIEW HISTORY: Acute pulmonary edema COMPARISON: Frontal chest radiograph 04/05/2018 9:53 a.m.. FINDINGS: LUNGS: Marked improvement in pulmonary vascular congestion is identified. No alveolitis appreciated bilaterally. Prior bilateral interstitial pulmonary pattern is markedly reduced. PLEURA: No pneumothorax or pleural fluid seen. CARDIOVASCULAR: Stable cardiac silhouette. No pulmonary vascular congestion. OSSEOUS STRUCTURES: No significant abnormalities. VISUALIZED UPPER ABDOMEN: Normal. OTHER FINDINGS: None. IMPRESSION: Marked improvement acute pulmonary edema pattern. No alveolitis or pleural effusion identified. Stable cardiac silhouette.
--- NOTE | 2018-04-05 19:09 | PCM.OP ---
Operative Report - Operative Report Date of Surgery/Procedure: 03/28/18 Time of Surgery/Procedure: 07:45 Surgeon: Dr. Macdonald Fabrication Engineer: Dr. Margie Doshi, Dr. Hyman, Dr. Gomes, Dr. Lauren Anesthesia/Sedation: General Endo Pre-Operative Diagnosis: Pre-Operative Diagnoses: 1)Left ankle equinus. 2) Left foot Charcot deformity Post-Operative Diagnosis: same Indication for Surgery: Indications: The patient is a 52 year-old female with the above diagnoses. Patient have exhausted conservative treatment at this point and now requests surgical intervention. The patient signed the consent after careful explanation of risks, benefits, complication and alternatives for surgical procedure. No guarantees were given nor implied. 2 grams of Ancef IV were given to the pt hour prior to the procedure. NPO status was confirmed prior to taking pt to the OR. Operative Findings: Preparation: The patient was brought to the operating room and placed on the operating room table in supine position. A well-padded pneumatic Thigh tourniquet was placed to the patient's Left Thigh. Once general anesthesia was achieved, the Left Lower extremity was then prepped and draped up to the knee in usual sterile manner. Esmarch was utilized to exsanguinate the patient's Left lower extremity. Pneumatic Thigh tourniquet was then inflated to 300 mmHg and procedure began. Procedure/Operation Description: Name of Procedure: 1)Left ankle Tendo Achilles lengthening. 2)Left foot midfoot capsulotomy. 3)Left lower extremity application of External fixator. PROCEDURE #1: Left ankle Tendo Achilles lengthening. Attention was directed to the posterior aspect of left ankle at the insertion of Achilles tendon. Utilizing a sterile ruler and a marker, total of three incision sites were marked over the skin of Achilles tendon at 3 cm intervals in alternating laterality fashion. First incision site was marked at medial aspect of Achilles tendon 3cm proximal from its insertion. Seconds incision site was marked at lateral aspect of Achilles tendon 3cm proximal from the first marking. Third incision site was marked at medial aspect of Achilles tendon 3cm proximal from the second marking. Next, Utilizing a #15 blade, a 1cm linear transverse incisions were made to the skin over Achilles tendon over the most distal marking. At this time, the incision was carried deep using only blunt dissection, taking care to retract all vital neurovascular structures. All bleeders were cauterized and ligated as necessary. Once Achilles tendon was visualized, #15 blade was utilized to transect approximately 1cm from the edge into the tendon. Next, the same procedure of tendon transection was repeated to the other two proximal incision markings. Next, the foot was dorsiflexed and the Achilles tendon was lengthened with a popping sound. Immediate increase in the amount of dorsiflexion was noted. The subcutaneous tissue was closed with #4 -0 vicryl and the skin was closed with #4-0 Nylon. PROCEDURE #2: Left mid-foot capsulotomy. Attention was directed to the dorsal medial aspect of the left foot. Under intraoperative fluoroscopy, deformed anatomy of the Navicular, medial cuneiform and 1st metatarsal bone was confirmed. Approximately 4cm linear longitudinal incision was made overlying 1st metatarsal base and navicular. At this time, the incision was carried deep using sharp and blunt dissection, taking care to retract all vital neurovascular structures. All bleeders were cauterized and ligated as necessary. At the level of the periosteum, a sharp periosteal incision was made overlying the base of 1st metatarsal, medial cuneiform and navicular to allow exposure to the deformed fracture site. At this time, a hemostat and a small osteotome were used to break up the tight capsule and coalescence of the adjacent bones. The surgical site was flushed with copious amount of normal sterile saline. Alignment of the 1st, 2nd metatarsals, medial cuneiform and the navicular bone was confirmed with intraoperative Xray and was noted to be in a better anatomical position. The deep capsular structures were re-approximated with #3-0 Vicryl, the subcutaneous tissue was closed with #4-0 Vicryl and the skin was closed with #4- 0 Nylon. Next, attention was directed to dorsal lateral aspect of left foot. Under intraoperative fluoroscopy, deformed anatomy of the 3rd, 4th, 5th metatarsals, and cuboid bone was confirmed. Approximately 4cm linear longitudinal incision was made overlying 4th metatarsal base and cuboid. At this time, the incision was carried deep using sharp and blunt dissection, taking care to retract all vital neurovascular structures. All bleeders were cauterized and ligated as necessary. At the level of the periosteum, a sharp periosteal incision was made overlying the base of 4th metatarsal, and cuboid to allow exposure to the deformed fracture site. At this time, a hemostat and a small osteotome were used to break up the tight capsule and coalescence of the adjacent bones. The surgical site was flushed with copious amount of normal sterile saline. Alignment of the 4th and 5th metatarsals and the cuboid bone was confirmed with intraoperative Xray and was noted to be in a better anatomical position. The deep capsular structures were re-approximated with #3- 0 Vicryl, the subcutaneous tissue was closed with #4-0 Vicryl and the skin was closed with #4-0 Nylon. PROCEDURE #3: Left lower extremity application of External fixator. Attention was direct to the left lower extremity. A pre- built two rings and U shaped heel plate construct [facility] external frame was applied over the left lower extremity. Sterile bump was applied underneath the left leg to hold the left lower extremity in correct level within the frame. Safe zone of the leg was carefully determined and the pre-built frame was leveled accordingly. Next, two transfixation wires were inserted across tibia, one from samantha-medial to postero-lateral direction and another from postero-medial to samantha-lateral directsion with angle of approximately 40 drgrees. These two transfixation wires were tensioned with a tensioner to 120 kg and fixated firmly on the most proximal tibial ring. Next, attention was directed to the distal tibial ring. Two more distal transfixation wires were inserted across tibia, one from samantha-medial to postero-lateral direction and another from postero-medial to samantha-lateral directsion with angle of approximately 40 drgrees. These two transfixation wires were tensioned with a tensioner to 120 kg and fixated firmly on the distal tibial ring. Next, a transfixation wire was prepared to be used as distraction device for calcaneus with following method. A transfixation wire was inserted into the calcaneous under fluoroscopy from lateral to medial direction at the level of the calcaneal tuberosity. Next, two 4 hole extension posts were added to the plantar aspect of the hindfoot plate pointing distally. Next, the two ends of transfixation wires were put into the most distal holes of the newly added 4 hole posts, medially and laterally. Next, two tensioner devices were installed into the ends of this transfixation wire medially and laterally, against respective extension posts. The two tensioners were then simultaneously activated so as to pull the calcaneus distally out to length. Next, the transfixation wire which is under tension with distraction of calcaneus was fixated onto the extension post so as to maintain the distraction of calcaneus. The tensioners were removed from the wire. Next, two transfixation [place] wires were inserted into the body of calcaneus at the level of the foot plate so as to hold the calcaneus in distracted position. The two transfixation wires were tensioned with tensioner to 100 kg and were firmed fixated onto the hindfoot plate with nuts and bolts. Next, the initial transfixation wire under tension which was used to distract the calcaneus was removed from the calcaneus. Next, the 4 hold extension posts were removed from the hindfoot plate. Now the calcaneus is distracted out to length and firmly fixated onto the hindfoot plate. Next, a foot ring was placed on the left foot, hanging by the foot. This is a necessary step before putting the wires to forefoot as the wires will prevent the ring to drop proximally after wire placement. Next an Ardmore wire was inserted across the forefoot from medial to lateral direction through 1st, 2nd 3rd and 5th metatarsals. Next the foot ring was brought up and the either ends of Ardmore wire was firmed fixated onto the ring with tension of 70 kg. Next , another Ardmore wire was inserted into forefoot from lateral to medial direction through 5th, 4th and 3rd metatarsals. Utilizing tensioner, this [place] wire was also fixated onto the foot ring with 70 kg tension. Next, by rotating the foot ring firmly fixated onto the foot ring, the forefoot was rotated into a neutral position without any inversion or eversion. Next, with the forefoot in correct position and distraction, total of four Quick Struts were then added connecting the foot ring to the distal tibial ring and the hindfoot plate. While the foot ring is distracted distally, the Quick Struts were fixated so as to hold the desired orientation of the foot ring. Next, utilizing intra- operative Xray, the foot anatomy was confirmed to be in a better anatomical alignment with 1st metatarsal base now articulating with medial cuneiform rather than navicular, increased calcaneal inclination angle, 4th and 5th metatarsals no longer sitting on top of the cuboid. Next, all bolts and nuts were tightened firmly so as to hold the desired tension of the transfixation wires. For placement of all Ardmore wires, a small stab incisions were created in order to pass the ball of the wire through the skin. Left lower extremity was then dressed with small strips of Xeroform around the pin insertions, 4x4, Kerlix and HELGA bandages. The attending was present during the entire case. Estimated Blood Loss: Less than 20 mL Complications: None Discharge & Condition: Postoperative Condition: The patient tolerated the anesthesia and procedure well and was escorted to the recovery room with vital signs stable and neurovascular status intact to the left foot. This patient will stay in-house under care of Dr. Macdonald. The patient will follow up with Dr. Macdonald upon discharge.
[2018-04-05] MEDS ORDERED: Labetalol 5 mg/ml Inj 20ML IVP STA (19:24)
[2018-04-05] MEDS ORDERED: Albuterol-Ipratrop 3 mg / 0.5 (3 ml) UD INH PRN (19:24)
--- NOTE | 2018-04-05 21:01 | PN ---
DATE: 04/05/2018 ENDO FOLLOWUP NOTE LOCATION: In room 427 ICU. SUBJECTIVE: This is a 52-year-old female with recent uncontrolled type 2 insulin-requiring diabetes, now being followed closely for metabolic management. Her glycemic levels are fluctuating, but improved and the glucose values have ranged from 228 to 314 mg/dL. LABORATORY DATA: Her latest chemistry showed a BUN of 48, sodium 138, potassium 4.5, chloride 104, CO2 of 25, glucose 218, and creatinine 1.7. ASSESSMENT AND PLAN: So at this time because of the recent respiratory distress and continued variability of her oral intake, we will keep the same basal and bolus insulin regimen as given with Humalog at 30 units subcutaneously t.i.d. before meals as ordered. We will also continue the Levemir given as 70 units subcutaneously at bedtime daily as given. We will titrate incrementally as indicated to optimize metabolic control. We will follow and advise accordingly. Yesika Vogel MD
[2018-04-05] MEDS: Insulin Detemir 100 Units/ml Inj SC SCH (22:25)
[2018-04-05] MEDS: oxyCODONE 10 mg Immediate Release Tab PO PRN (22:38)
[2018-04-06 05:12] LABS: HEMOGLOBIN 7.5 g/dL (12.0-16.0); MEAN CORPUSCULAR HGB CONC 32.5 g/dL (33.0-37.0); RBC 2.79 Mil/uL (3.80-5.20); RED CELL DISTRIBUTION WIDTH 17.1 % (11.5-14.5); WHITE BLOOD COUNT 6.9 K/uL (4.8-10.8)
[2018-04-06 05:31] LABS: CALCIUM 9.4 mg/dL (8.4-10.2)
[2018-04-06] MEDS: Morphine 30 mg SR Tab PO SCH ×3 (05:33→21:10)
[2018-04-06] MEDS: Insulin Lispro (humaLOG) 100 Units/ml Inj SC SCH ×7 (06:40→21:14)
[2018-04-06] MEDS: oxyCODONE 10 mg Immediate Release Tab PO PRN (08:51)
[2018-04-06] MEDS: Metoprolol Succinate 100 mg XL Tab PO SCH ×2 (08:53→21:11)
--- NOTE | 2018-04-06 09:52 | CP.PCM.PN ---
Subjective - Date & Time of Evaluation Date of Evaluation: 04/06/18 Time of Evaluation: 09:53 - Subjective Subjective: sob improved no recurrence of nosebleeds no chest pains transferred to icu Objective - Vital Signs/Intake and Output Vital Signs (last 24 hours): Temp Pulse Resp BP Pulse Ox 98.0 F 71 20 155/77 H 100 04/06/18 08:00 04/06/18 08:53 04/06/18 08:00 04/06/18 08:53 04/06/18 08:00 Intake and Output: 04/06/18 04/06/18 06:59 18:59 Intake Total 285 210 Output Total 1750 350 Balance -1465 -140 - Medications Medications: Current Medications Acetaminophen (Tylenol 325mg Tab) 650 mg PO Q4 PRN PRN Reason: Pain, Mild (1-3) Albuterol/Ipratropium (Duoneb 3 Mg/0.5 Mg (3 Ml) Ud) 3 ml INH RQ6 PRN PRN Reason: Shortness of Breath Alprazolam (Xanax) 0.25 mg PO BID PRN PRN Reason: Anxiety Stop: 04/12/18 19:25 Amlodipine Besylate (Norvasc) 10 mg PO DAILY [facility] Last Admin: 04/06/18 08:40 Dose: 10 mg Aspirin (Ecotrin) 81 mg PO DAILY [facility] Last Admin: 04/06/18 08:39 Dose: 81 mg Atorvastatin Calcium (Lipitor) 40 mg PO HS [facility] Last Admin: 04/05/18 22:06 Dose: 40 mg Clonidine HCl (Catapres) 0.2 mg PO BID [facility] Enalapril Maleate (Vasotec) 20 mg PO BID [facility] Last Admin: 04/06/18 08:40 Dose: 20 mg Ferrous Sulfate (Feosol) 325 mg PO TID [facility] Last Admin: 04/06/18 09:00 Dose: 325 mg Furosemide (Lasix) 40 mg IVP DAILY [facility] Heparin Sodium (Porcine) (Heparin) 5,000 units SC Q12 [facility] PRN Reason: Protocol Last Admin: 04/06/18 08:48 Dose: 5,000 units Hydromorphone HCl (Dilaudid) 1 mg IVP Q4 PRN PRN Reason: Pain, moderate (4-7) Last Admin: 04/06/18 01:48 Dose: 1 mg Vancomycin HCl 750 mg/ Sodium (Chloride) 250 mls @ 166.667 mls/hr IVPB DAILY [facility] PRN Reason: Protocol Piperacillin Sod/Tazobactam (Sod 2.25 gm/ Sodium Chloride) 100 mls @ 100 mls/ hr IVPB Q8 [facility] PRN Reason: Protocol Last Admin: 04/06/18 08:38 Dose: 100 mls/hr Insulin Detemir (Levemir) 70 units SC HS [facility] Last Admin: 04/05/18 22:25 Dose: 70 units Insulin Human Lispro (Humalog) 0 units SC ACHS [facility] Last Admin: 04/06/18 06:40 Dose: Not Given Insulin Human Lispro (Humalog) 30 units SC AC [facility] Last Admin: 04/06/18 09:00 Dose: 30 u Isosorbide Mononitrate (Imdur) 60 mg PO DAILY [facility] Last Admin: 04/06/18 08:40 Dose: 60 mg Lactulose (Enulose) 10 gm PO DAILY PRN PRN Reason: Constipation Metoprolol Succinate (Toprol Xl) 200 mg PO Q12 [facility] Last Admin: 04/06/18 08:53 Dose: 200 mg Morphine Sulfate (Morphine Extended Release Tab) 30 mg PO Q8@0400,1200,2000 [facility] Last Admin: 04/06/18 05:33 Dose: 30 mg Ondansetron HCl (Zofran Inj) 4 mg IVP Q4 PRN PRN Reason: Nausea/Vomiting Oxycodone HCl (Oxycodone Immediate Release Tab) 30 mg PO Q6 PRN PRN Reason: Pain, moderate (4-7) Last Admin: 04/06/18 08:51 Dose: 30 mg Pantoprazole Sodium (Protonix Inj) 40 mg IVP DAILY [facility] Last Admin: 04/06/18 08:35 Dose: 40 mg - Labs Labs: 04/06/18 04:35 04/06/18 04:35 PT 12.1 Seconds (9.8-13.1) 04/02/18 19:00 INR 1.1 04/02/18 19:00 APTT 30.7 Seconds (25.6-37.1) 04/02/18 19:00 - Constitutional Appears: No Acute Distress - Head Exam Head Exam: ATRAUMATIC, NORMAL INSPECTION, NORMOCEPHALIC - Eye Exam Eye Exam: EOMI, Normal appearance, PERRL Pupil Exam: NORMAL ACCOMODATION, PERRL - ENT Exam ENT Exam: Mucous Membranes Moist, Normal Exam - Neck Exam Neck Exam: Full ROM, Normal Inspection. absent: Lymphadenopathy - Respiratory Exam Respiratory Exam: Prolonged Expiratory Phase, Rales, NORMAL BREATHING PATTERN - Cardiovascular Exam Cardiovascular Exam: REGULAR RHYTHM, +S1, +S2. absent: Murmur - GI/Abdominal Exam GI & Abdominal Exam: Soft, Normal Bowel Sounds. absent: Tenderness - Rectal Exam Rectal Exam: NORMAL INSPECTION - Extremities Exam Extremities Exam: Full ROM, Normal Capillary Refill, Normal Inspection, Tenderness. absent: Joint Swelling, Pedal Edema Additional comments: s/p l foot/ankle surgery - Back Exam Back Exam: NORMAL INSPECTION - Neurological Exam Neurological Exam: Abnormal Gait, Alert, Awake, CN II-XII Intact, Oriented x3 - Psychiatric Exam Psychiatric exam: Normal Affect, Normal Mood - Skin Skin Exam: Dry, Intact, Normal Color, Warm Assessment and Plan - Assessment and Plan (Free Text) Assessment: acute pulmonary edema--improved s/p l foot/ankle surgery osteomyelitis of l foot/ankle anemia--blood loss htn s/p nstemi Plan: continue rx as ordered transfuse prbcs will discus further rx with podiatry--including further surgical risks.
--- NOTE | 2018-04-06 10:24 | RAD ---
Date of service: 04/06/2018 PROCEDURE: CHEST RADIOGRAPH, 1 VIEW HISTORY: Acute pulmonary edema COMPARISON: 04/05/2018. FINDINGS: LUNGS: The lungs are well inflated and clear. PLEURA: No pneumothorax or pleural fluid seen. CARDIOVASCULAR: There is mild cardiomegaly. OSSEOUS STRUCTURES: No significant abnormalities. VISUALIZED UPPER ABDOMEN: Normal. OTHER FINDINGS: None. IMPRESSION: No active pulmonary disease.
--- NOTE | 2018-04-06 11:26 | CP.PCM.PN ---
Subjective - Date & Time of Evaluation Date of Evaluation: 04/06/18 Time of Evaluation: 11:26 - Subjective Subjective: ID note- pt. seen and examined today in ICU. patient had [employer] the other day for high BP and sob and was brought to ICU for closer monitoring and observation. She states she feels much better now and her BP is much better controlled. denies any fever or chills and denies any cough or sob. Objective - Vital Signs/Intake and Output Vital Signs (last 24 hours): Temp Pulse Resp BP Pulse Ox 98.0 F 73 16 151/60 H 100 04/06/18 08:00 04/06/18 10:00 04/06/18 10:00 04/06/18 10:00 04/06/18 10:00 Intake and Output: 04/06/18 04/06/18 06:59 18:59 Intake Total 285 697 Output Total 1750 350 Balance -1465 347 - Medications Medications: Current Medications Acetaminophen (Tylenol 325mg Tab) 650 mg PO Q4 PRN PRN Reason: Pain, Mild (1-3) Albuterol/Ipratropium (Duoneb 3 Mg/0.5 Mg (3 Ml) Ud) 3 ml INH RQ6 PRN PRN Reason: Shortness of Breath Alprazolam (Xanax) 0.25 mg PO BID PRN PRN Reason: Anxiety Stop: 04/12/18 19:25 Amlodipine Besylate (Norvasc) 10 mg PO DAILY [facility] Last Admin: 04/06/18 08:40 Dose: 10 mg Aspirin (Ecotrin) 81 mg PO DAILY [facility] Last Admin: 04/06/18 08:39 Dose: 81 mg Atorvastatin Calcium (Lipitor) 40 mg PO HS [facility] Last Admin: 04/05/18 22:06 Dose: 40 mg Clonidine HCl (Catapres) 0.2 mg PO BID [facility] Enalapril Maleate (Vasotec) 20 mg PO BID [facility] Last Admin: 04/06/18 08:40 Dose: 20 mg Ferrous Sulfate (Feosol) 325 mg PO TID [facility] Last Admin: 04/06/18 09:00 Dose: 325 mg Furosemide (Lasix) 40 mg IVP DAILY [facility] Heparin Sodium (Porcine) (Heparin) 5,000 units SC Q12 [facility] PRN Reason: Protocol Last Admin: 04/06/18 08:48 Dose: 5,000 units Hydromorphone HCl (Dilaudid) 1 mg IVP Q4 PRN PRN Reason: Pain, moderate (4-7) Last Admin: 04/06/18 10:48 Dose: 1 mg Vancomycin HCl 750 mg/ Sodium (Chloride) 250 mls @ 166.667 mls/hr IVPB DAILY [facility] PRN Reason: Protocol Last Admin: 04/06/18 10:07 Dose: 166.667 mls/hr Piperacillin Sod/Tazobactam (Sod 2.25 gm/ Sodium Chloride) 100 mls @ 100 mls/ hr IVPB Q8 [facility] PRN Reason: Protocol Last Admin: 04/06/18 08:38 Dose: 100 mls/hr Insulin Detemir (Levemir) 70 units SC HS [facility] Last Admin: 04/05/18 22:25 Dose: 70 units Insulin Human Lispro (Humalog) 0 units SC ACHS [facility] Last Admin: 04/06/18 11:22 Dose: Not Given Insulin Human Lispro (Humalog) 30 units SC AC [facility] Last Admin: 04/06/18 09:00 Dose: 30 u Isosorbide Mononitrate (Imdur) 60 mg PO DAILY [facility] Last Admin: 04/06/18 08:40 Dose: 60 mg Lactulose (Enulose) 10 gm PO DAILY PRN PRN Reason: Constipation Metoprolol Succinate (Toprol Xl) 200 mg PO Q12 [facility] Last Admin: 04/06/18 08:53 Dose: 200 mg Morphine Sulfate (Morphine Extended Release Tab) 30 mg PO Q8@0400,1200,2000 [facility] Last Admin: 04/06/18 05:33 Dose: 30 mg Ondansetron HCl (Zofran Inj) 4 mg IVP Q4 PRN PRN Reason: Nausea/Vomiting Oxycodone HCl (Oxycodone Immediate Release Tab) 30 mg PO Q6 PRN PRN Reason: Pain, moderate (4-7) Last Admin: 04/06/18 08:51 Dose: 30 mg Pantoprazole Sodium (Protonix Inj) 40 mg IVP DAILY [facility] Last Admin: 04/06/18 08:35 Dose: 40 mg - Labs Labs: - Additional Findings Additional findings: - Constitutional Appears: No Acute Distress - Head Exam Head Exam: ATRAUMATIC - Eye Exam Eye Exam: EOMI - ENT Exam ENT Exam: Normal Oropharynx - Neck Exam Neck exam: Positive for: Full Rom - Respiratory Exam Additional comments: good breath sounds heard b/l no wheezing - Cardiovascular Exam Cardiovascular Exam: RRR, +S1, +S2 - GI/Abdominal Exam GI & Abdominal Exam: Normal Bowel Sounds, Soft Additional comments: NT, ND - Extremities Exam Additional comments: right foot TMA (old) left foot in post surgical dressing and external fixation in place - Neurological Exam Neurological exam: Alert, Oriented x 3 Laboratory Results - last 72 hr 04/03/18 04/03/18 04/04/18 15:51 21:34 05:36 WBC RBC Hgb Hct MCV MCH MCHC RDW Plt Count MPV Neut % (Auto) Lymph % (Auto) [place] % (Auto) Eos % (Auto) Baso % (Auto) Neut # (Auto) Lymph # (Auto) [place] # (Auto) Eos # (Auto) Baso # (Auto) Neutrophils % (Manual) Band Neutrophils % Lymphocytes % (Manual) Monocytes % (Manual) Platelet Estimate Polychromasia Hypochromasia (manual) Poikilocytosis (manual Anisocytosis (manual) Microcytosis (manual) Ovalocytes pCO2 pO2 HCO3 ABG pH ABG Total CO2 ABG O2 Saturation ABG O2 Content ABG Base Excess ABG Hemoglobin ABG Carboxyhemoglobin POC ABG HHb (Measured) ABG Methemoglobin ABG O2 Capacity Tony Test A-a O2 Difference Hgb O2 Saturation Vent Mode FiO2 Sodium Potassium Chloride Carbon Dioxide Anion Gap BUN Creatinine Est GFR ( Amer) Est GFR (Non-Af Amer) POC Glucose (mg/dL) 149 H 124 H 218 H Random Glucose Calcium Total Bilirubin AST ALT Alkaline Phosphatase Troponin I NT-Pro-B Natriuret Pep Total Protein Albumin Globulin Albumin/Globulin Ratio Vancomycin Trough Blood Type Antibody Screen Crossmatch BBK History Checked 04/04/18 04/04/18 04/04/18 05:50 05:50 11:34 WBC 6.9 RBC 2.94 L Hgb 8.0 L Hct 24.2 L MCV 82.3 MCH 27.3 MCHC 33.1 RDW 17.2 H Plt Count 288 MPV 8.2 Neut % (Auto) 72.5 Lymph % (Auto) 16.1 L [place] % (Auto) 7.3 Eos % (Auto) 2.9 Baso % (Auto) 1.2 Neut # (Auto) 5.0 Lymph # (Auto) 1.1 [place] # (Auto) 0.5 Eos # (Auto) 0.2 Baso # (Auto) 0.1 Neutrophils % (Manual) Band Neutrophils % Lymphocytes % (Manual) Monocytes % (Manual) Platelet Estimate Polychromasia Hypochromasia (manual) Poikilocytosis (manual Anisocytosis (manual) Microcytosis (manual) Ovalocytes pCO2 pO2 HCO3 ABG pH ABG Total CO2 ABG O2 Saturation ABG O2 Content ABG Base Excess ABG Hemoglobin ABG Carboxyhemoglobin POC ABG HHb (Measured) ABG Methemoglobin ABG O2 Capacity [place]n Test A-a O2 Difference Hgb O2 Saturation Vent Mode FiO2 Sodium 139 Potassium 4.2 Chloride 102 Carbon Dioxide 27 Anion Gap 14 BUN 41 H Creatinine 1.9 H Est GFR ( Amer) 34 Est GFR (Non-Af Amer) 28 POC Glucose (mg/dL) 138 H Random Glucose 223 H Calcium 8.9 Total Bilirubin 0.3 AST 17 ALT 15 Alkaline Phosphatase 82 Troponin I NT-Pro-B Natriuret Pep Total Protein 6.9 Albumin 3.3 L Globulin 3.6 Albumin/Globulin Ratio 0.9 L Vancomycin Trough Blood Type Antibody Screen Crossmatch BBK History Checked 04/04/18 04/04/18 04/04/18 15:50 21:47 23:43 WBC RBC Hgb Hct MCV MCH MCHC RDW Plt Count MPV Neut % (Auto) Lymph % (Auto) [place] % (Auto) Eos % (Auto) Baso % (Auto) Neut # (Auto) Lymph # (Auto) [place] # (Auto) Eos # (Auto) Baso # (Auto) Neutrophils % (Manual) Band Neutrophils % Lymphocytes % (Manual) Monocytes % (Manual) Platelet Estimate Polychromasia Hypochromasia (manual) Poikilocytosis (manual Anisocytosis (manual) Microcytosis (manual) Ovalocytes pCO2 pO2 HCO3 ABG pH ABG Total CO2 ABG O2 Saturation ABG O2 Content ABG Base Excess ABG Hemoglobin ABG Carboxyhemoglobin POC ABG HHb (Measured) ABG Methemoglobin ABG O2 Capacity Tony Test A-a O2 Difference Hgb O2 Saturation Vent Mode FiO2 Sodium Potassium Chloride Carbon Dioxide Anion Gap BUN Creatinine Est GFR ( Amer) Est GFR (Non-Af Amer) POC Glucose (mg/dL) 115 H 56 L 189 H Random Glucose Calcium Total Bilirubin AST ALT Alkaline Phosphatase Troponin I NT-Pro-B Natriuret Pep Total Protein Albumin Globulin Albumin/Globulin Ratio Vancomycin Trough Blood Type Antibody Screen Crossmatch BBK History Checked 04/05/18 04/05/18 04/05/18 05:51 06:05 07:30 WBC RBC Hgb Hct MCV MCH MCHC RDW Plt Count MPV Neut % (Auto) Lymph % (Auto) [place] % (Auto) Eos % (Auto) Baso % (Auto) Neut # (Auto) Lymph # (Auto) [place] # (Auto) Eos # (Auto) Baso # (Auto) Neutrophils % (Manual) Band Neutrophils % Lymphocytes % (Manual) Monocytes % (Manual) Platelet Estimate Polychromasia Hypochromasia (manual) Poikilocytosis (manual Anisocytosis (manual) Microcytosis (manual) Ovalocytes pCO2 pO2 HCO3 ABG pH ABG Total CO2 ABG O2 Saturation ABG O2 Content ABG Base Excess ABG Hemoglobin ABG Carboxyhemoglobin POC ABG HHb (Measured) ABG Methemoglobin ABG O2 Capacity Tony Test A-a O2 Difference Hgb O2 Saturation Vent Mode FiO2 Sodium 138 Potassium 4.5 Chloride 104 Carbon Dioxide 25 Anion Gap 14 BUN 48 H Creatinine 1.7 H Est GFR ( Amer) 38 Est GFR (Non-Af Amer) 32 POC Glucose (mg/dL) 228 H Random Glucose 228 H Calcium 9.0 Total Bilirubin AST ALT Alkaline Phosphatase Troponin I NT-Pro-B Natriuret Pep Total Protein Albumin Globulin Albumin/Globulin Ratio Vancomycin Trough 12.4 H Blood Type Antibody Screen Crossmatch BBK History Checked 04/05/18 04/05/18 04/05/18 09:28 09:43 09:57 WBC 16.2 H D RBC 3.91 Hgb 10.3 L D Hct 32.5 L MCV 83.2 MCH 26.4 L MCHC 31.7 L RDW 17.8 H Plt Count 488 H D MPV 8.1 Neut % (Auto) 67.3 Lymph % (Auto) 23.8 [place] % (Auto) 6.5 Eos % (Auto) 1.6 Baso % (Auto) 0.8 Neut # (Auto) 10.9 H Lymph # (Auto) 3.9 [place] # (Auto) 1.1 H Eos # (Auto) 0.3 Baso # (Auto) 0.1 Neutrophils % (Manual) Band Neutrophils % Lymphocytes % (Manual) Monocytes % (Manual) Platelet Estimate Polychromasia Hypochromasia (manual) Poikilocytosis (manual Anisocytosis (manual) Microcytosis (manual) Ovalocytes pCO2 56 H pO2 69 L HCO3 22.4 ABG pH 7.25 L ABG Total CO2 26.3 ABG O2 Saturation 93.1 L ABG O2 Content 13.2 L ABG Base Excess -3.1 L ABG Hemoglobin 10.3 L ABG Carboxyhemoglobin 1.8 H POC ABG HHb (Measured) 6.7 H ABG Methemoglobin 1.1 ABG O2 Capacity 14.2 L Tony Test Yes A-a O2 Difference 574.0 Hgb O2 Saturation 90.4 L Vent Mode Nrm FiO2 100.0 Sodium Potassium Chloride Carbon Dioxide Anion Gap BUN Creatinine Est GFR ( Amer) Est GFR (Non-Af Amer) POC Glucose (mg/dL) 314 H Random Glucose Calcium Total Bilirubin AST ALT Alkaline Phosphatase Troponin I NT-Pro-B Natriuret Pep Total Protein Albumin Globulin Albumin/Globulin Ratio Vancomycin Trough Blood Type Antibody Screen Crossmatch BBK History Checked 04/05/18 04/05/18 04/05/18 09:57 17:29 17:29 WBC 8.3 RBC 2.86 L Hgb 7.8 L D Hct 23.7 L MCV 82.6 MCH 27.2 MCHC 32.9 L RDW 17.3 H Plt Count 292 D MPV 7.9 Neut % (Auto) 87.4 H Lymph % (Auto) 7.2 L [place] % (Auto) 4.6 Eos % (Auto) 0.2 Baso % (Auto) 0.6 Neut # (Auto) 7.3 H Lymph # (Auto) 0.6 L [place] # (Auto) 0.4 Eos # (Auto) 0.0 Baso # (Auto) 0.0 Neutrophils % (Manual) 85 H Band Neutrophils % 3 H Lymphocytes % (Manual) 8 L Monocytes % (Manual) 4 Platelet Estimate Normal Polychromasia Slight Hypochromasia (manual) Slight Poikilocytosis (manual Slight Anisocytosis (manual) Moderate Microcytosis (manual) Slight Ovalocytes Slight pCO2 pO2 HCO3 ABG pH ABG Total CO2 ABG O2 Saturation ABG O2 Content ABG Base Excess ABG Hemoglobin ABG Carboxyhemoglobin POC ABG HHb (Measured) ABG Methemoglobin ABG O2 Capacity Tony Test A-a O2 Difference Hgb O2 Saturation Vent Mode FiO2 Sodium 136 Potassium 4.5 Chloride 101 Carbon Dioxide 28 Anion Gap 12 BUN 51 H Creatinine 1.8 H Est GFR ( Amer) 36 Est GFR (Non-Af Amer) 30 POC Glucose (mg/dL) Random Glucose 374 H Calcium 8.9 Total Bilirubin AST ALT Alkaline Phosphatase Troponin I 0.0360 NT-Pro-B Natriuret Pep 992 H Total Protein Albumin Globulin Albumin/Globulin Ratio Vancomycin Trough Blood Type Antibody Screen Crossmatch BBK History Checked 04/06/18 04/06/18 04/06/18 04:35 04:35 11:01 WBC 6.9 RBC 2.79 L Hgb 7.5 L Hct 23.2 L MCV 83.0 MCH 27.0 MCHC 32.5 L RDW 17.1 H Plt Count 284 MPV Neut % (Auto) Lymph % (Auto) [place] % (Auto) Eos % (Auto) Baso % (Auto) Neut # (Auto) Lymph # (Auto) [place] # (Auto) Eos # (Auto) Baso # (Auto) Neutrophils % (Manual) Band Neutrophils % Lymphocytes % (Manual) Monocytes % (Manual) Platelet Estimate Polychromasia Hypochromasia (manual) Poikilocytosis (manual Anisocytosis (manual) Microcytosis (manual) Ovalocytes pCO2 pO2 HCO3 ABG pH ABG Total CO2 ABG O2 Saturation ABG O2 Content ABG Base Excess ABG Hemoglobin ABG Carboxyhemoglobin POC ABG HHb (Measured) ABG Methemoglobin ABG O2 Capacity Tony Test A-a O2 Difference Hgb O2 Saturation Vent Mode FiO2 Sodium 139 Potassium 4.4 Chloride 103 Carbon Dioxide 28 Anion Gap 12 BUN 53 H Creatinine 1.7 H Est GFR ( Amer) 38 Est GFR (Non-Af Amer) 32 POC Glucose (mg/dL) Random Glucose 178 H Calcium 9.4 Total Bilirubin AST ALT Alkaline Phosphatase Troponin I NT-Pro-B Natriuret Pep Total Protein Albumin Globulin Albumin/Globulin Ratio Vancomycin Trough Blood Type B POSITIVE Antibody Screen Negative Crossmatch See Detail BBK History Checked Patient has bt Microbiology 03/31/18 17:36 Naris MRSA Culture (Admit) - Final MRSA NOT DETECTED 03/28/18 05:00 Nose MRSA Culture (Admit) - Final MRSA NOT DETECTED Accession No. : [id number] Patient Name / ID : PITO [id number] / [id number] Exam Date : 04/06/2018 04:22:46 ( Approved ) Study Comment : Sex / Age : F / 52Y Creator : Rachel Johnson MD Dictator : Rachel Johnson MD Household Cook : Operation Specialist : Rachel Johnson MD Approver2 : Report Date : 04/06/2018 10:17:17 My Comment : Date of service: 04/06/2018 PROCEDURE: CHEST RADIOGRAPH, 1 VIEW HISTORY: Acute pulmonary edema COMPARISON: 04/05/2018. FINDINGS: LUNGS: The lungs are well inflated and clear. PLEURA: No pneumothorax or pleural fluid seen. CARDIOVASCULAR: There is mild cardiomegaly. OSSEOUS STRUCTURES: No significant abnormalities. VISUALIZED UPPER ABDOMEN: Normal. OTHER FINDINGS: None. IMPRESSION: No active pulmonary disease. Assessment and Plan (1) Acute pulmonary edema Status: Acute (2) Diabetes mellitus with hyperglycemia Status: Chronic (3) Charcot's joint arthropathy in type 2 diabetes mellitus Status: Acute (4) Diabetic foot ulcer Status: Acute - Assessment and Plan (Free Text) Assessment: A/P- 52 year old female with CAD, HTN, DM II was originally admitted with left plantar foot open wound and surrounding erythema . s/p left charcot foot surgery with external fixation POD #9. anemic getting PRBC afebrile leukocytosis has resolved. blood cx- neg x 2 foot wound cx- corynebacterium Initial CT report- ? acute or chronic Om as per report High ESR asper podiatry discussion today no Om of the left plantar foot and no debridement of the plantar wound, only second charcot surgery for next week. as per podiatry they will plan on outpatient wound treatment . plan- advise to continue with renal dose zosyn. day #20 completed 9 days of Iv daptomycin , switched to IV vancomycin 8 days ago since renal function had improved. will decrease the vanco dose since her creatinine has risen again. keep vanco trough <15. advise at least another week of empiric IV abx till second part of the charcot surgery is done since pt. has external hardware in place adn would like to minimize the chance of infection there. also advised if they could get a bone biopsy during second stage of the charcot syurgery so that this way OM could be ruled out ( as per podiatry no active OM of the left plantar foot and no plan for it's debridement and outpatietn woudn care ocne a week by podiatry ). all above d/w patient and she verbalizes full understanding of all above. ICU time 45 min.
--- NOTE | 2018-04-06 17:06 | CP.CCUPN ---
CCU Subjective - Physician Review Subjective (Free Text): Awake and alert, obtained consent for blood transfusion as ordered by PMD, improved resp status post diuresis after multiple doses of Lasix, she is now neg 2.2liters fluid balance. SPO2 100% on nasal cannula. Other vitals and I/O's reviewed. No fever spikes last 24H. ROS: No other pertinent negs or positives on 10+ system review. PMSFH: All other Nursing and physician documentation reviewed to date; no new pertinent info noted relevant to current medical problems. EXAM- HEENT: no icterus, no gaze preference, pupils equal and reactive NECK: No JVD visible, supple, carotids equal upstroke bilat/no bruits CHEST: decreased BS bases, no wheezes audible HEART: regular, distant, Tachy S1S2, no rubs ABD: soft, no increased distention, no tympany, no focal tenderness, BS hypoactive, no rebound. EXT: no peripheral/ digital cyanosis, no calf tenderness or palpable cords, distal pulses intact and symmetrical. Dressing intact over Left LE/Foot. NEURO: no gross focal motor deficits SKIN: no new rashes; otherwise warm and dry. LABS: WBC= 6.9 HGB= 7.5 PLTs= 284K Hk=668 K= 4.4 CL= 103 HCO3= 28 BUN/Cr= 53/1.7 BS= 178 Trops: 0.25, 1.09, 0.374 CXR (my interp): no new consolidation, previous congestive changes improved. EK/19 and yesterdays study compared, latter EKG today shows inferolateral ST-T inversions. IMPRESSION / MAJOR PROBLEMS NOW: 1. Post-Op Acute Resp insuff 2 Pulm Edema 2. s/p NSTEMI 3. s/p Left Foot Charcot Joint Reconstruction 4. Chronic Pain Syndrome 5. Chronic Disease Anemia PLAN: 1. Additional Lasix prn. Otherwise conservative mgmt. of NSTEMI as per Cardio : ASA, BBs, Statin, anti-platelets, nitrates. Yesterdays Trop was negative. ECHO yesterday shows relatively normal LVEF with no DDysfx. 2. Zosyn / Vanco coverage. 3. Additional Dilaudid IVP added prn. Discussed with PMD: Pain Mgmt evaluation to achieve adequate pain control given opioid tolerance. 4. Stable for Tele bed transfer; has averted need for MV support. CCU Objective - Vital Signs / Intake & Output Vital Signs (Last 4 hours): Vital Signs Temp Pulse Resp BP Pulse Ox 04/06/18 16:58 67 143/62 04/06/18 16:00 98.8 F 70 14 146/56 L 99 04/06/18 15:57 98.7 F 68 20 146/56 L 04/06/18 14:24 98.1 F 71 15 149/70 04/06/18 14:00 72 13 149/70 100 04/06/18 13:39 97.9 F 81 20 164/75 H 04/06/18 13:20 99 F 73 16 156/71 H 04/06/18 13:10 75 169/75 H 04/06/18 13:06 171/69 H Intake and Output (Last 8hrs): Intake & Output 04/06/18 04/06/18 04/06/18 06:59 14:59 22:59 Intake Total 155 697 650 Output Total 1300 750 Balance -1145 -53 650 Intake: IV 130 Intake, Piggyback 360 Oral 25 337 Blood Product 0 650 Red Blood Cells Cpd As1 0 325 Lr Unit [id number] Output: Urine 1300 750 Urine, Voided 1300 750
[2018-04-06] MEDS: Lactulose 10 gm/15 ml Syrup PO PRN (18:04)
--- NOTE | 2018-04-06 19:57 | PN ---
DATE: 04/06/2018 ENDO FOLLOWUP NOTE LOCATION: In room 427 ICU. SUBJECTIVE: This is a 52-year-old female with recent uncontrolled type 2 insulin-requiring diabetes, who developed sudden onset of acute respiratory distress yesterday and was evaluated to have supervening acute pulmonary edema and is now being followed closely in the ICU for hemodynamic monitoring and management. Her glycemic levels are fluctuating, but improved and the latest chemistry showed a BUN of 53, sodium 139, potassium 4.4, chloride 103, CO2 of 28, glucose 178, and creatinine 1.7. ASSESSMENT AND PLAN: So at this time, we will continue the same basal and bolus insulin regimen as ordered with Humalog given as 30 units subcutaneously t.i.d. before meals as given. We will continue the Levemir given as 70 units subcutaneously at bedtime daily as given. We will titrate incrementally as indicated to optimize metabolic control. We will obtain serial chemistries and supplement accordingly as needed. We will follow. Yesika Vogel MD
[2018-04-06] MEDS: Insulin Detemir 100 Units/ml Inj SC SCH (21:17)
--- NOTE | 2018-04-06 22:53 | CARD ---
APPROVED REPORT Date of service: 04/06/2018 EKG Measurement Heart [id number] NM [id number] <Conclusion> Normal sinus rhythm ST & T wave abnormality, consider inferolateral ischemia Abnormal ECG
[2018-04-07 05:36] LABS: HEMOGLOBIN 7.8 g/dL (12.0-16.0); MEAN CORPUSCULAR HGB CONC 32.5 g/dL (33.0-37.0); RBC 2.88 Mil/uL (3.80-5.20); RED CELL DISTRIBUTION WIDTH 16.8 % (11.5-14.5); WHITE BLOOD COUNT 5.7 K/uL (4.8-10.8)
[2018-04-07 05:44] LABS: CALCIUM 9.2 mg/dL (8.4-10.2)
[2018-04-07] MEDS: Insulin Lispro (humaLOG) 100 Units/ml Inj SC SCH ×7 (07:19→22:08)
[2018-04-07] MEDS: Metoprolol Succinate 100 mg XL Tab PO SCH ×2 (08:56→22:01)
--- NOTE | 2018-04-07 09:30 | CP.PCM.PN ---
Subjective - Date & Time of Evaluation Date of Evaluation: 04/07/18 Time of Evaluation: 09:33 - Subjective Subjective: CASE DISCUSSED WITH PODIATRY RESIDENT--PT HAS COMPLETION FOOT SURGERY PLANNED FOR NEXT WEEK IF MEDICALLY STABLE Objective - Vital Signs/Intake and Output Vital Signs (last 24 hours): Temp Pulse Resp BP Pulse Ox 98.7 F 72 19 161/72 H 100 04/07/18 08:00 04/07/18 08:56 04/07/18 08:00 04/07/18 08:56 04/07/18 08:00 Intake and Output: 04/07/18 04/07/18 06:59 18:59 Intake Total 350 220 Output Total 1200 400 Balance -850 -180 - Medications Medications: Current Medications Acetaminophen (Tylenol 325mg Tab) 650 mg PO Q4 PRN PRN Reason: Pain, Mild (1-3) Albuterol/Ipratropium (Duoneb 3 Mg/0.5 Mg (3 Ml) Ud) 3 ml INH RQ6 PRN PRN Reason: Shortness of Breath Alprazolam (Xanax) 0.25 mg PO BID PRN PRN Reason: Anxiety Stop: 04/12/18 19:25 Amlodipine Besylate (Norvasc) 10 mg PO DAILY [facility] Last Admin: 04/07/18 08:55 Dose: 10 mg Aspirin (Ecotrin) 81 mg PO DAILY [facility] Last Admin: 04/07/18 08:55 Dose: 81 mg Atorvastatin Calcium (Lipitor) 40 mg PO HS [facility] Last Admin: 04/06/18 21:12 Dose: 40 mg Clonidine HCl (Catapres) 0.2 mg PO BID [facility] Last Admin: 04/06/18 16:58 Dose: 0.2 mg Enalapril Maleate (Vasotec) 20 mg PO BID [facility] Last Admin: 04/07/18 08:55 Dose: 20 mg Ferrous Sulfate (Feosol) 325 mg PO TID [facility] Last Admin: 04/07/18 08:55 Dose: 325 mg Furosemide (Lasix) 40 mg IVP DAILY [facility] Last Admin: 04/06/18 13:06 Dose: 40 mg Heparin Sodium (Porcine) (Heparin) 5,000 units SC Q12 [facility] PRN Reason: Protocol Last Admin: 04/07/18 09:10 Dose: 5,000 units Hydromorphone HCl (Dilaudid) 1 mg IVP Q4 PRN PRN Reason: Pain, moderate (4-7) Last Admin: 04/07/18 03:12 Dose: 1 mg Vancomycin HCl 750 mg/ Sodium (Chloride) 250 mls @ 166.667 mls/hr IVPB DAILY [facility] PRN Reason: Protocol Last Admin: 04/06/18 10:07 Dose: 166.667 mls/hr Piperacillin Sod/Tazobactam (Sod 2.25 gm/ Sodium Chloride) 100 mls @ 100 mls/ hr IVPB Q8 [facility] PRN Reason: Protocol Last Admin: 04/07/18 08:53 Dose: 100 mls/hr Insulin Detemir (Levemir) 70 units SC HS [facility] Last Admin: 04/06/18 21:17 Dose: 70 units Insulin Human Lispro (Humalog) 0 units SC ACHS [facility] Last Admin: 04/07/18 07:19 Dose: Not Given Insulin Human Lispro (Humalog) 30 units SC AC [facility] Last Admin: 04/07/18 08:58 Dose: 30 u Isosorbide Mononitrate (Imdur) 60 mg PO DAILY [facility] Last Admin: 04/07/18 08:55 Dose: 60 mg Lactulose (Enulose) 10 gm PO DAILY PRN PRN Reason: Constipation Last Admin: 04/06/18 18:04 Dose: 10 gm Metoprolol Succinate (Toprol Xl) 200 mg PO Q12 [facility] Last Admin: 04/07/18 08:56 Dose: 200 mg Morphine Sulfate (Morphine Extended Release Tab) 30 mg PO Q8@0400,1200,2000 [facility] Last Admin: 04/06/18 21:10 Dose: 30 mg Ondansetron HCl (Zofran Inj) 4 mg IVP Q4 PRN PRN Reason: Nausea/Vomiting Oxycodone HCl (Oxycodone Immediate Release Tab) 30 mg PO Q6 PRN PRN Reason: Pain, moderate (4-7) Last Admin: 04/06/18 08:51 Dose: 30 mg Pantoprazole Sodium (Protonix Inj) 40 mg IVP DAILY [facility] Last Admin: 04/07/18 08:51 Dose: 40 mg - Labs Labs: 04/07/18 04:20 04/07/18 04:20 PT 12.1 Seconds (9.8-13.1) 04/02/18 19:00 INR 1.1 04/02/18 19:00 APTT 30.7 Seconds (25.6-37.1) 04/02/18 19:00 - Constitutional Appears: Chronically Ill - Head Exam Head Exam: ATRAUMATIC, NORMAL INSPECTION, NORMOCEPHALIC - Eye Exam Eye Exam: EOMI, Normal appearance, PERRL Pupil Exam: NORMAL ACCOMODATION, PERRL - ENT Exam ENT Exam: Mucous Membranes Moist, Normal Exam - Neck Exam Neck Exam: Full ROM, Normal Inspection. absent: Lymphadenopathy - Respiratory Exam Respiratory Exam: Clear to Ausculation Bilateral, NORMAL BREATHING PATTERN - Cardiovascular Exam Cardiovascular Exam: REGULAR RHYTHM, +S1, +S2. absent: Murmur - GI/Abdominal Exam GI & Abdominal Exam: Soft, Normal Bowel Sounds. absent: Tenderness - Rectal Exam Rectal Exam: NORMAL INSPECTION - Extremities Exam Extremities Exam: Full ROM, Normal Capillary Refill, Normal Inspection, Tenderness. absent: Joint Swelling, Pedal Edema Additional comments: SURGICAL HARDWARE IN PLACE OVER L FOOT/ANKLE - Back Exam Back Exam: NORMAL INSPECTION - Neurological Exam Neurological Exam: Abnormal Gait, Alert, Awake, CN II-XII Intact, Oriented x3 - Psychiatric Exam Psychiatric exam: Normal Affect, Normal Mood - Skin Skin Exam: Dry, Intact, Normal Color, Warm Assessment and Plan - Assessment and Plan (Free Text) Assessment: CHARCOT DEFORMITY L FOOT R TRANSMET AMPUTATION OSTEOMYELITIS OF L FOOT DM HTN PVD S/P SD CHF ANEMIA--CHRONIC DZ AND BLOOD LOSS Plan: HEMATOLOGY EVAL CARDIAC RE-EVAL PT POSES HIGH SURGICAL MORTALITY IN VIEW OF RECURRENT PULMONARY EDEMA/ RESPIRATORY FAILURE AND SD MAY BENEFIT FROM SPINAL ANAESTHESIA FOR SURGERY
--- NOTE | 2018-04-07 09:54 | RAD ---
Date of service: 04/07/2018 PROCEDURE: CHEST RADIOGRAPH, 1 VIEW HISTORY: chf COMPARISON: 04/06/2018 FINDINGS: LUNGS: Clear. PLEURA: No pneumothorax or pleural fluid seen. CARDIOVASCULAR: Normal. OSSEOUS STRUCTURES: No significant abnormalities. VISUALIZED UPPER ABDOMEN: Normal. OTHER FINDINGS: None. IMPRESSION: No active disease.
--- NOTE | 2018-04-07 10:29 | CP.PCM.CON ---
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 She had an initial surgery on 9917. Following this she developed a osteomyelitis for which she has been on antibiotics. She had pulmonary edema and was transferred to ICU. She has a past h/o DM2, HTN, CVA , Hyperlipidemia ,hypercholesterolemia, CAD., PVD. When she was admitted to the hospital her HGb was 10.9, with a normal MCV. Since surgery this has dropped to 7.5, then after a transfusion went up to 8.9 but today is again low. Pt had a bad nosebleed during hospitalisation when she was on heparin. She claims she has been slightly anemic all her life but does not know if she has a thallassemia trait. She was asked by Dr Vogel to take B12 because it was low but pt never got around to it.Her wbc and platelets are normal. Other than the surgery no bleeding from any other site at this time, Past Patient History - Infectious Disease Hx of Infectious Diseases: None - Tetanus Immunizations Tetanus Immunization: Unknown - Past Medical History & Family History Past Medical History?: Yes - Past Social History Smoking Status: Never Smoked - CARDIAC Hx Cardiac Disorders: Yes (HTN, hyperlipidemia,CAD, coronary stent) Hx Angina: Yes Hx Circulatory Problems: Yes Hx Congestive Heart Failure: Yes Hx Heart Attack: Yes Hx Hypercholesterolemia: Yes Hx Hypertension: Yes Hx Peripheral Edema: Yes Hx Peripheral Vascular Disease: Yes Other/Comment: Hyperlipidemia - PULMONARY Hx Respiratory Disorders: No Hx Chronic Obstructive Pulmonary Disease (COPD): No Hx Tuberculosis: No - NEUROLOGICAL Hx Neurological Disorder: Yes (CVA) HX Cerebrovascular Accident: Yes Hx Seizures: No - HEENT Hx HEENT Problems: No - RENAL Hx Chronic Kidney Disease: No Hx Renal Failure: No - ENDOCRINE/METABOLIC Hx Endocrine Disorders: Yes (DM) Hx Diabetes Mellitus Type 1: Yes Hx Diabetes Mellitus Type 2: Yes Hx Hypothyroidism: No - HEMATOLOGICAL/ONCOLOGICAL Hx Anemia: Yes Hx Blood Transfusions: Yes Hx Blood Transfusion Reaction: Yes - INTEGUMENTARY Hx Dermatological Problems: Yes Hx Cellulitis: Yes (ble) Other/Comment: Gangrene right 2nd toe - MUSCULOSKELETAL/RHEUMATOLOGICAL Hx Musculoskeletal Disorders: Yes (arthritis, back problems, hernated discs) Hx Arthritis: Yes Hx Back Pain: Yes Hx Degenerative Joint Disease: Yes Hx Falls: No Hx Herniated Disk: Yes Hx Osteomyelitis: Yes Hx Rheumatoid Arthritis: No Other/Comment: L charcot foot - GASTROINTESTINAL Hx Gastrointestinal Disorders: Yes - GENITOURINARY/GYNECOLOGICAL Hx Genitourinary Disorders: No Hx Sexually Transmitted Disorders: No Other/Comment: c section,ovarian cystectomy - PSYCHIATRIC Hx Psychophysiologic Disorder: Yes (anxiety, depression) Hx Anxiety: Yes Hx Depression: Yes Hx Emotional Abuse: No Hx Panic Symptoms: Yes Hx Physical Abuse: No Hx Substance Use: No - SURGICAL HISTORY Hx Surgeries: Yes Hx Amputation: Yes (right toes 2 years ago) Hx Appendectomy: Yes Hx Cardiac Catheterization: Yes (x1 stent) Hx Section: Yes (1996) Hx Coronary Stent: Yes Hx Orthopedic Surgery: Yes (Amputation toes right foot, 2 years ago) Hx Vascular Surgery: Yes (INSERTION OF STENT ON THE RIGHT LEG) Other/Comment: surgery L arm for compartmental syndrome. multiple foot surgeries. removal of ovaries - ANESTHESIA Hx Anesthesia: Yes Hx Anesthesia Reactions: Yes (CAN'T BREATH-ADMITTED TO ICU) Hx Malignant Hyperthermia: No Meds Allergies/Adverse Reactions: Allergies Allergy/AdvReac Type Severity Reaction Status Date / Time No Known Allergies Allergy Verified 03/17/18 04:21 - Medications Medications: Current Medications Acetaminophen (Tylenol 325mg Tab) 650 mg PO Q4 PRN PRN Reason: Pain, Mild (1-3) Albuterol/Ipratropium (Duoneb 3 Mg/0.5 Mg (3 Ml) Ud) 3 ml INH RQ6 PRN PRN Reason: Shortness of Breath Alprazolam (Xanax) 0.25 mg PO BID PRN PRN Reason: Anxiety Stop: 04/12/18 19:25 Amlodipine Besylate (Norvasc) 10 mg PO DAILY [facility] Last Admin: 04/07/18 08:55 Dose: 10 mg Aspirin (Ecotrin) 81 mg PO DAILY [facility] Last Admin: 04/07/18 08:55 Dose: 81 mg Atorvastatin Calcium (Lipitor) 40 mg PO [facility] Last Admin: 04/06/18 21:12 Dose: 40 mg Clonidine HCl (Catapres) 0.2 mg PO BID [facility] Last Admin: 04/06/18 16:58 Dose: 0.2 mg Enalapril Maleate (Vasotec) 20 mg PO BID [facility] Last Admin: 04/07/18 08:55 Dose: 20 mg Ferrous Sulfate (Feosol) 325 mg PO TID [facility] Last Admin: 04/07/18 08:55 Dose: 325 mg Furosemide (Lasix) 40 mg IVP DAILY [facility] Last Admin: 04/07/18 10:06 Dose: Not Given Heparin Sodium (Porcine) (Heparin) 5,000 units SC Q12 [facility] PRN Reason: Protocol Last Admin: 04/07/18 09:10 Dose: 5,000 units Hydromorphone HCl (Dilaudid) 1 mg IVP Q4 PRN PRN Reason: Pain, moderate (4-7) Last Admin: 04/07/18 09:43 Dose: 1 mg Vancomycin HCl 750 mg/ Sodium (Chloride) 250 mls @ 166.667 mls/hr IVPB DAILY [facility] PRN Reason: Protocol Last Admin: 04/06/18 10:07 Dose: 166.667 mls/hr Piperacillin Sod/Tazobactam (Sod 2.25 gm/ Sodium Chloride) 100 mls @ 100 mls/ hr IVPB Q8 [facility] PRN Reason: Protocol Last Admin: 04/07/18 08:53 Dose: 100 mls/hr Insulin Detemir (Levemir) 70 units SC HS [facility] Last Admin: 04/06/18 21:17 Dose: 70 units Insulin Human Lispro (Humalog) 0 units SC ACHS [facility] Last Admin: 04/07/18 07:19 Dose: Not Given Insulin Human Lispro (Humalog) 30 units SC AC [facility] Last Admin: 04/07/18 08:58 Dose: 30 u Isosorbide Mononitrate (Imdur) 60 mg PO DAILY [facility] Last Admin: 04/07/18 08:55 Dose: 60 mg Lactulose (Enulose) 10 gm PO DAILY PRN PRN Reason: Constipation Last Admin: 04/06/18 18:04 Dose: 10 gm Metoprolol Succinate (Toprol Xl) 200 mg PO Q12 [facility] Last Admin: 04/07/18 08:56 Dose: 200 mg Morphine Sulfate (Morphine Extended Release Tab) 30 mg PO Q8@0400,1200,2000 [facility] Last Admin: 04/06/18 21:10 Dose: 30 mg Ondansetron HCl (Zofran Inj) 4 mg IVP Q4 PRN PRN Reason: Nausea/Vomiting Oxycodone HCl (Oxycodone Immediate Release Tab) 30 mg PO Q6 PRN PRN Reason: Pain, moderate (4-7) Last Admin: 04/06/18 08:51 Dose: 30 mg Pantoprazole Sodium (Protonix Inj) 40 mg IVP DAILY [facility] Last Admin: 04/07/18 08:51 Dose: 40 mg Physical Exam - Additional Findings Additional findings: Physical exam; alert, well oriented, in no acute distress neck; supple, no adenopathy Chest; clear, no rhonchi, scattered rales at bases. heart; RSR, no murmur Abd; soft, mo mass, no h/s megaly Left foot painful, no drainage. Results - Vital Signs Recent Vital Signs: Last Vital Signs Temp 98.7 F 04/07/18 08:00 Pulse 76 04/07/18 10:00 Resp 14 04/07/18 10:00 BP 152/69 H 04/07/18 10:00 Pulse Ox 100 04/07/18 10:00 - Labs Result Diagrams: 04/07/18 04:20 04/07/18 04:20 Labs: Laboratory Results - last 24 hr 04/06/18 04/07/18 04/07/18 11:01 04:20 04:20 WBC 5.7 RBC 2.88 L Hgb 7.8 L Hct 23.9 L MCV 83.0 MCH 27.0 MCHC 32.5 L RDW 16.8 H Plt Count 278 Sodium 141 Potassium 4.9 Chloride 105 Carbon Dioxide 31 H Anion Gap 10 BUN 49 H Creatinine 1.6 H Est GFR ( Amer) 41 Est GFR (Non-Af Amer) 34 Random Glucose 158 H Calcium 9.2 Blood Type B POSITIVE Antibody Screen Negative Crossmatch See Detail BBK History Checked Patient has bt Assessment & Plan - Assessment and Plan (Free Text) Assessment: Impression; Acute on chronic anemia. Plan: Plan; Have ordered tests. Based on the result will start pt on either B12 or IV iron. - Date & Time Date: 04/07/18 Time: 10:45
[2018-04-07 10:53] LABS: IRON 41 ug/dL (37-170)
[2018-04-07 11:02] LABS: % IRON SATURATION 14 % (20-55); TOTAL IRON BINDING CAPACITY 283 ug/dL (250-450)
--- NOTE | 2018-04-07 11:22 | CP.PCM.PN ---
Subjective - Date & Time of Evaluation Date of Evaluation: 04/07/18 Time of Evaluation: 11:10 - Subjective Subjective: Podiatry progress note for attending Dr. Macdonald: 51 yo female seen and evaluated 10 days s/p left foot charcot neuroarthropathy reconstruction with external fixation. Patient is AAOx3. Patient today is not in acute distress, She was sitting comfortably in her bed. Patient reports she is doing better since being moved to ICU. Patient reports pain is controlled. Patient states that her right foot ulcer is stable now. Patient denies any other pedal complaint at this time. She denies any overnight N/V/F. Objective - Vital Signs/Intake and Output Vital Signs (last 24 hours): Temp Pulse Resp BP Pulse Ox 98.7 F 76 14 152/69 H 100 04/07/18 08:00 04/07/18 10:00 04/07/18 10:00 04/07/18 10:00 04/07/18 10:00 Intake and Output: 04/07/18 04/07/18 06:59 18:59 Intake Total 350 230 Output Total 1200 400 Balance -850 -170 - Medications Medications: Current Medications Acetaminophen (Tylenol 325mg Tab) 650 mg PO Q4 PRN PRN Reason: Pain, Mild (1-3) Albuterol/Ipratropium (Duoneb 3 Mg/0.5 Mg (3 Ml) Ud) 3 ml INH RQ6 PRN PRN Reason: Shortness of Breath Alprazolam (Xanax) 0.25 mg PO BID PRN PRN Reason: Anxiety Stop: 04/12/18 19:25 Amlodipine Besylate (Norvasc) 10 mg PO DAILY [facility] Last Admin: 04/07/18 08:55 Dose: 10 mg Aspirin (Ecotrin) 81 mg PO DAILY [facility] Last Admin: 04/07/18 08:55 Dose: 81 mg Atorvastatin Calcium (Lipitor) 40 mg PO HS [facility] Last Admin: 04/06/18 21:12 Dose: 40 mg Clonidine HCl (Catapres) 0.2 mg PO BID [facility] Last Admin: 04/06/18 16:58 Dose: 0.2 mg Enalapril Maleate (Vasotec) 20 mg PO BID [facility] Last Admin: 04/07/18 08:55 Dose: 20 mg Ferrous Sulfate (Feosol) 325 mg PO TID [facility] Last Admin: 04/07/18 08:55 Dose: 325 mg Furosemide (Lasix) 40 mg IVP DAILY [facility] Last Admin: 04/07/18 10:06 Dose: Not Given Heparin Sodium (Porcine) (Heparin) 5,000 units SC Q12 [facility] PRN Reason: Protocol Last Admin: 04/07/18 09:10 Dose: 5,000 units Hydromorphone HCl (Dilaudid) 1 mg IVP Q4 PRN PRN Reason: Pain, moderate (4-7) Last Admin: 04/07/18 09:43 Dose: 1 mg Vancomycin HCl 750 mg/ Sodium (Chloride) 250 mls @ 166.667 mls/hr IVPB DAILY [facility] PRN Reason: Protocol Last Admin: 04/07/18 10:37 Dose: 166.667 mls/hr Piperacillin Sod/Tazobactam (Sod 2.25 gm/ Sodium Chloride) 100 mls @ 100 mls/ hr IVPB Q8 [facility] PRN Reason: Protocol Last Admin: 04/07/18 08:53 Dose: 100 mls/hr Insulin Detemir (Levemir) 70 units SC HS [facility] Last Admin: 04/06/18 21:17 Dose: 70 units Insulin Human Lispro (Humalog) 0 units SC ACHS [facility] Last Admin: 04/07/18 07:19 Dose: Not Given Insulin Human Lispro (Humalog) 30 units SC AC [facility] Last Admin: 04/07/18 08:58 Dose: 30 u Isosorbide Mononitrate (Imdur) 60 mg PO DAILY [facility] Last Admin: 04/07/18 08:55 Dose: 60 mg Lactulose (Enulose) 10 gm PO DAILY PRN PRN Reason: Constipation Last Admin: 04/06/18 18:04 Dose: 10 gm Metoprolol Succinate (Toprol Xl) 200 mg PO Q12 [facility] Last Admin: 04/07/18 08:56 Dose: 200 mg Morphine Sulfate (Morphine Extended Release Tab) 30 mg PO Q8@0400,1200,2000 [facility] Last Admin: 04/06/18 21:10 Dose: 30 mg Ondansetron HCl (Zofran Inj) 4 mg IVP Q4 PRN PRN Reason: Nausea/Vomiting Oxycodone HCl (Oxycodone Immediate Release Tab) 30 mg PO Q6 PRN PRN Reason: Pain, moderate (4-7) Last Admin: 04/06/18 08:51 Dose: 30 mg Pantoprazole Sodium (Protonix Inj) 40 mg IVP DAILY [facility] Last Admin: 04/07/18 08:51 Dose: 40 mg - Labs Labs: 04/07/18 04:20 04/07/18 04:20 PT 12.1 Seconds (9.8-13.1) 04/02/18 19:00 INR 1.1 04/02/18 19:00 APTT 30.7 Seconds (25.6-37.1) 04/02/18 19:00 - Constitutional Appears: Well, Non-toxic, No Acute Distress - Head Exam Head Exam: ATRAUMATIC, NORMOCEPHALIC - Extremities Exam Additional comments: Vasc: DP/PT pulses palpable 1/4 on the right but not assessed due to obstruction from external fixation device on her left foot, cap refill on left foot <3 to all digits, mild edema present about the surgery sites with pin placement. Neuro: protective sensation absent bilaterally Derm: dressing clean and dry, No drainage, suture sites are well coapted with no signs of dehiscence noted, no malodor or pus, pin sites are clean with minimal sanguineous drainage, no erythema and mild edema noted, no clinical signs of infection. MSK: pain on palpation about the left lower leg and surgery sites; external fixation limits any motion at the left lower extremity. No pain on palpating the right foot ulcer. - Neurological Exam Neurological Exam: Alert, Awake, Oriented x3 - Psychiatric Exam Psychiatric exam: Normal Affect, Normal Mood Assessment and Plan - Assessment and Plan (Free Text) Assessment: 52 y/o patient seen at bedside 10 days s/p left foot charcot neuroarthropathy reconstruction using external fixation device Plan: Patient seen and evaluated at the bedside. Discussed in detail with Dr. Macdonald Charts and labs reviewed: afrebrile and absent leukocytosis Patient given Dilaudid prior to dressing change Patient surgery site at the left LE cleaned with saline then dressed with xeroform, 4X4 gauze, jj and graeme bandage Patient right plantar wound stable and dressed with xeroform/DSD Patient left plantar wound debrided with a sterile #15 blade and dressed with xeroform/DSD New 3 views X-ray ordered for the left foot Discussed future plan with medicine- patient to be transferred to Telemetry Patient second Podiatric surgery postponed until patient stable Continue IV Antibiotics Podiatry will continue to follow up patient while in house
[2018-04-07] MEDS: Morphine 30 mg SR Tab PO SCH ×2 (12:50→20:27)
--- NOTE | 2018-04-07 13:10 | RAD ---
Date of service: 04/07/2018 PROCEDURE: Left Foot Radiographs. HISTORY: s/p 10 days charcot reconstruction COMPARISON: 04/04/2018. FINDINGS: BONES: No significant interval change compared to the prior examination(s). JOINTS: Normal. SOFT TISSUES: Normal. OTHER FINDINGS: None. IMPRESSION: Stable postoperative findings.
[2018-04-07] MEDS ORDERED: Insulin Lispro (humaLOG) 100 Units/ml Inj SC STA (16:59)
--- NOTE | 2018-04-07 20:19 | CP.PCM.PN ---
Subjective - Date & Time of Evaluation Date of Evaluation: 04/07/18 Time of Evaluation: 20:10 - Subjective Subjective: events noted cuco was trasnferred to ICU for acute pulmonary edema. blood pressure was merkedly elevated. Objective - Vital Signs/Intake and Output Vital Signs (last 24 hours): Temp Pulse Resp BP Pulse Ox 98.2 F 72 18 153/78 H 94 L 04/07/18 15:45 04/07/18 17:08 04/07/18 15:45 04/07/18 17:08 04/07/18 15:45 Intake and Output: 04/07/18 04/08/18 18:59 06:59 Intake Total 470 Output Total 800 Balance -330 - Medications Medications: Current Medications Acetaminophen (Tylenol 325mg Tab) 650 mg PO Q4 PRN PRN Reason: Pain, Mild (1-3) Albuterol/Ipratropium (Duoneb 3 Mg/0.5 Mg (3 Ml) Ud) 3 ml INH RQ6 PRN PRN Reason: Shortness of Breath Alprazolam (Xanax) 0.25 mg PO BID PRN PRN Reason: Anxiety Stop: 04/12/18 19:25 Amlodipine Besylate (Norvasc) 10 mg PO DAILY [facility] Last Admin: 04/07/18 08:55 Dose: 10 mg Aspirin (Ecotrin) 81 mg PO DAILY [facility] Last Admin: 04/07/18 08:55 Dose: 81 mg Atorvastatin Calcium (Lipitor) 40 mg PO HS [facility] Last Admin: 04/06/18 21:12 Dose: 40 mg Clonidine HCl (Catapres) 0.2 mg PO BID [facility] Last Admin: 04/07/18 17:08 Dose: 0.2 mg Enalapril Maleate (Vasotec) 20 mg PO BID [facility] Last Admin: 04/07/18 17:10 Dose: 20 mg Ferrous Sulfate (Feosol) 325 mg PO TID [facility] Last Admin: 04/07/18 17:09 Dose: 325 mg Furosemide (Lasix) 40 mg IVP DAILY [facility] Last Admin: 04/07/18 10:06 Dose: Not Given Heparin Sodium (Porcine) (Heparin) 5,000 units SC Q12 [facility] PRN Reason: Protocol Last Admin: 04/07/18 09:10 Dose: 5,000 units Hydromorphone HCl (Dilaudid) 1 mg IVP Q4 PRN PRN Reason: Pain, moderate (4-7) Last Admin: 04/07/18 17:07 Dose: 1 mg Vancomycin HCl 750 mg/ Sodium (Chloride) 250 mls @ 166.667 mls/hr IVPB DAILY [facility] PRN Reason: Protocol Last Admin: 04/07/18 10:37 Dose: 166.667 mls/hr Piperacillin Sod/Tazobactam (Sod 2.25 gm/ Sodium Chloride) 100 mls @ 100 mls/ hr IVPB Q8 [facility] PRN Reason: Protocol Last Admin: 04/07/18 16:50 Dose: 100 mls/hr Insulin Detemir (Levemir) 70 units SC HS [facility] Last Admin: 04/06/18 21:17 Dose: 70 units Insulin Human Lispro (Humalog) 0 units SC ACHS [facility] Last Admin: 04/07/18 17:10 Dose: Not Given Insulin Human Lispro (Humalog) 30 units SC AC [facility] Last Admin: 04/07/18 16:59 Dose: Not Given Isosorbide Mononitrate (Imdur) 60 mg PO DAILY [facility] Last Admin: 04/07/18 08:55 Dose: 60 mg Lactulose (Enulose) 10 gm PO DAILY PRN PRN Reason: Constipation Last Admin: 04/06/18 18:04 Dose: 10 gm Metoprolol Succinate (Toprol Xl) 200 mg PO Q12 [facility] Last Admin: 04/07/18 08:56 Dose: 200 mg Morphine Sulfate (Morphine Extended Release Tab) 30 mg PO Q8@0400,1200,2000 [facility] Last Admin: 04/07/18 12:50 Dose: 30 mg Ondansetron HCl (Zofran Inj) 4 mg IVP Q4 PRN PRN Reason: Nausea/Vomiting Oxycodone HCl (Oxycodone Immediate Release Tab) 30 mg PO Q6 PRN PRN Reason: Pain, moderate (4-7) Last Admin: 04/06/18 08:51 Dose: 30 mg Pantoprazole Sodium (Protonix Inj) 40 mg IVP DAILY [facility] Last Admin: 04/07/18 08:51 Dose: 40 mg - Labs Labs: 04/07/18 04:20 04/07/18 04:20 PT 12.1 Seconds (9.8-13.1) 04/02/18 19:00 INR 1.1 04/02/18 19:00 APTT 30.7 Seconds (25.6-37.1) 04/02/18 19:00 - Constitutional Appears: Non-toxic - Head Exam Head Exam: NORMAL INSPECTION - Eye Exam Eye Exam: Normal appearance - ENT Exam ENT Exam: Mucous Membranes Moist - Neck Exam Neck Exam: Full ROM - Respiratory Exam Respiratory Exam: NORMAL BREATHING PATTERN - Cardiovascular Exam Cardiovascular Exam: REGULAR RHYTHM - GI/Abdominal Exam GI & Abdominal Exam: Normal Bowel Sounds - Rectal Exam Rectal Exam: Deferred - Extremities Exam Extremities Exam: absent: Calf Tenderness - Back Exam Back Exam: NORMAL INSPECTION - Neurological Exam Neurological Exam: Alert - Psychiatric Exam Psychiatric exam: Normal Affect - Skin Skin Exam: Normal Color Assessment and Plan (1) NSTEMI (non-ST elevated myocardial infarction) Assessment & Plan: medical therapy Status: Acute (2) CAD (coronary artery disease) Assessment & Plan: will treat medically but may need a stress test recommend correct anemai given CAD Status: Chronic (3) Hypertension Assessment & Plan: medication adjustment Status: Chronic (4) Peripheral vascular disease Status: Chronic
[2018-04-07] MEDS: Insulin Detemir 100 Units/ml Inj SC SCH (22:07)
--- NOTE | 2018-04-08 02:24 | PN ---
DATE: 04/07/2018 LOCATION: In room #660. SUBJECTIVE: This is a 52-year-old female with recent uncontrolled type 2 insulin-requiring diabetes with recent acute pulmonary edema and has since then improved clinically and hemodynamically and has been transferred back to the regular floor as noted. Her glycemic levels are fluctuating also because of the variability of her oral intake as noted today. LABORATORY DATA: Her chemistries have shown a BUN of 49, sodium 141, potassium 4.9, chloride 105, CO2 of 31, glucose 158 and creatinine 1.6. Her proBNP is 992 mg/dL. ASSESSMENT AND PLAN: So at this time, we will continue the same basal insulin given as Levemir at 70 units subcu at bedtime daily to start tonight. We will give her only half the dose of her Humalog today because of very suboptimal meal portions and give her Humalog 15 units as a stat dose at dinnertime and we will resume tomorrow a dose of 30 units t.i.d. before meals as ordered. We will obtain serial chemistries and supplement accordingly needed. We will follow. Yesika Vogel MD
[2018-04-08] MEDS: Morphine 30 mg SR Tab PO SCH ×3 (03:55→21:50)
[2018-04-08 05:21] LABS: MCH 26.8 pg (27.0-33.0); MCV 85.3 fL (80.0-100.0)
[2018-04-08] MEDS: Insulin Lispro (humaLOG) 100 Units/ml Inj SC SCH ×7 (07:10→21:54)
--- NOTE | 2018-04-08 08:10 | CP.PCM.PN ---
Subjective - Date & Time of Evaluation Date of Evaluation: 04/08/18 Time of Evaluation: 08:09 - Subjective Subjective: Pt still has pain in te left foot. Hgb yesterday was 7.8gms. her serum iron is normal but iron sat is low. Ferritin is also normal.. Pt may have a thallassemia trait. Iuntil we get the report, will give her 1 dose of B12 and daily po iron. May need a transfusion prior to next surgery. Objective - Vital Signs/Intake and Output Vital Signs (last 24 hours): Temp Pulse Resp BP Pulse Ox 98.2 F 74 20 169/79 H 99 04/08/18 01:03 04/08/18 07:05 04/08/18 01:03 04/08/18 07:05 04/08/18 01:03 - Medications Medications: Current Medications Acetaminophen (Tylenol 325mg Tab) 650 mg PO Q4 PRN PRN Reason: Pain, Mild (1-3) Albuterol/Ipratropium (Duoneb 3 Mg/0.5 Mg (3 Ml) Ud) 3 ml INH RQ6 PRN PRN Reason: Shortness of Breath Alprazolam (Xanax) 0.25 mg PO BID PRN PRN Reason: Anxiety Stop: 04/12/18 19:25 Amlodipine Besylate (Norvasc) 10 mg PO DAILY COUNTS INCLUDE 234 BEDS AT THE [facility] Last Admin: 04/08/18 07:05 Dose: 10 mg Aspirin (Ecotrin) 81 mg PO DAILY COUNTS INCLUDE 234 BEDS AT THE [facility] Last Admin: 04/07/18 08:55 Dose: 81 mg Atorvastatin Calcium (Lipitor) 40 mg PO HS COUNTS INCLUDE 234 BEDS AT THE [facility] Last Admin: 04/07/18 22:07 Dose: 40 mg Clonidine HCl (Catapres) 0.2 mg PO BID COUNTS INCLUDE 234 BEDS AT THE [facility] Last Admin: 04/07/18 17:08 Dose: 0.2 mg Docusate Sodium (Colace) 100 mg PO DAILY PRN PRN Reason: Constipation Enalapril Maleate (Vasotec) 20 mg PO BID COUNTS INCLUDE 234 BEDS AT THE [facility] Last Admin: 04/07/18 17:10 Dose: 20 mg Ferrous Sulfate (Feosol) 325 mg PO TID COUNTS INCLUDE 234 BEDS AT THE [facility] Last Admin: 04/07/18 17:09 Dose: 325 mg Ferrous Sulfate (Feosol) 325 mg PO DAILY COUNTS INCLUDE 234 BEDS AT THE [facility] Furosemide (Lasix) 40 mg IVP DAILY COUNTS INCLUDE 234 BEDS AT THE [facility] Last Admin: 04/07/18 10:06 Dose: Not Given Heparin Sodium (Porcine) (Heparin) 5,000 units SC Q12 COUNTS INCLUDE 234 BEDS AT THE [facility] PRN Reason: Protocol Last Admin: 04/07/18 22:00 Dose: 5,000 units Hydromorphone HCl (Dilaudid) 1 mg IVP Q4 PRN PRN Reason: Pain, moderate (4-7) Last Admin: 04/08/18 05:31 Dose: 1 mg Vancomycin HCl 750 mg/ Sodium (Chloride) 250 mls @ 166.667 mls/hr IVPB DAILY COUNTS INCLUDE 234 BEDS AT THE [facility] PRN Reason: Protocol Last Admin: 04/07/18 10:37 Dose: 166.667 mls/hr Piperacillin Sod/Tazobactam (Sod 2.25 gm/ Sodium Chloride) 100 mls @ 100 mls/ hr IVPB Q8 COUNTS INCLUDE 234 BEDS AT THE [facility] PRN Reason: Protocol Last Admin: 04/08/18 01:08 Dose: 100 mls/hr Insulin Detemir (Levemir) 70 units SC HS COUNTS INCLUDE 234 BEDS AT THE [facility] Last Admin: 04/07/18 22:07 Dose: 70 units Insulin Human Lispro (Humalog) 0 units SC ACHS COUNTS INCLUDE 234 BEDS AT THE [facility] Last Admin: 04/08/18 07:10 Dose: Not Given Insulin Human Lispro (Humalog) 30 units SC AC COUNTS INCLUDE 234 BEDS AT THE [facility] Last Admin: 04/07/18 16:59 Dose: Not Given Isosorbide Mononitrate (Imdur) 60 mg PO DAILY COUNTS INCLUDE 234 BEDS AT THE [facility] Last Admin: 04/07/18 08:55 Dose: 60 mg Lactulose (Enulose) 10 gm PO DAILY PRN PRN Reason: Constipation Last Admin: 04/06/18 18:04 Dose: 10 gm Metoprolol Succinate (Toprol Xl) 200 mg PO Q12 COUNTS INCLUDE 234 BEDS AT THE [facility] Last Admin: 04/07/18 22:01 Dose: 200 mg Morphine Sulfate (Morphine Extended Release Tab) 30 mg PO Q8@0400,1200,2000 COUNTS INCLUDE 234 BEDS AT THE [facility] Last Admin: 04/08/18 03:55 Dose: 30 mg Ondansetron HCl (Zofran Inj) 4 mg IVP Q4 PRN PRN Reason: Nausea/Vomiting Oxycodone HCl (Oxycodone Immediate Release Tab) 30 mg PO Q6 PRN PRN Reason: Pain, moderate (4-7) Last Admin: 04/06/18 08:51 Dose: 30 mg Pantoprazole Sodium (Protonix Inj) 40 mg IVP DAILY COUNTS INCLUDE 234 BEDS AT THE [facility] Last Admin: 04/07/18 08:51 Dose: 40 mg - Labs Labs: 04/07/18 04:20 04/07/18 04:20 PT 12.1 Seconds (9.8-13.1) 04/02/18 19:00 INR 1.1 04/02/18 19:00 APTT 30.7 Seconds (25.6-37.1) 04/02/18 19:00
[2018-04-08] MEDS: Metoprolol Succinate 100 mg XL Tab PO SCH ×2 (08:40→21:52)
[2018-04-08] MEDS: oxyCODONE 10 mg Immediate Release Tab PO PRN (09:08)
--- NOTE | 2018-04-08 09:18 | CP.PCM.PN ---
Subjective - Date & Time of Evaluation Date of Evaluation: 04/08/18 Time of Evaluation: 09:17 - Subjective Subjective: ID Note- Pt. seen and examined today in med-surg floor. Pt. states she feels better but still somewhat weak . has been seen by He regarding low Hgb counts. denies any fever or chills. denies any cough denies any diarrhea as per podiatry had bedside debridement of the left plantar open wound yesterday. Objective - Vital Signs/Intake and Output Vital Signs (last 24 hours): Temp Pulse Resp BP Pulse Ox 97.9 F 72 20 189/80 H 100 04/08/18 08:22 04/08/18 08:44 04/08/18 08:22 04/08/18 08:44 04/08/18 08:22 - Medications Medications: Current Medications Acetaminophen (Tylenol 325mg Tab) 650 mg PO Q4 PRN PRN Reason: Pain, Mild (1-3) Albuterol/Ipratropium (Duoneb 3 Mg/0.5 Mg (3 Ml) Ud) 3 ml INH RQ6 PRN PRN Reason: Shortness of Breath Alprazolam (Xanax) 0.25 mg PO BID PRN PRN Reason: Anxiety Stop: 04/12/18 19:25 Amlodipine Besylate (Norvasc) 10 mg PO DAILY [facility] Last Admin: 04/08/18 08:40 Dose: 10 mg Aspirin (Ecotrin) 81 mg PO DAILY [facility] Last Admin: 04/08/18 08:44 Dose: 81 mg Atorvastatin Calcium (Lipitor) 40 mg PO HS [facility] Last Admin: 04/07/18 22:07 Dose: 40 mg Clonidine HCl (Catapres) 0.2 mg PO BID [facility] Last Admin: 04/08/18 08:44 Dose: 0.2 mg Docusate Sodium (Colace) 100 mg PO DAILY PRN PRN Reason: Constipation Enalapril Maleate (Vasotec) 20 mg PO BID [facility] Last Admin: 04/08/18 08:41 Dose: 20 mg Ferrous Sulfate (Feosol) 325 mg PO TID [facility] Last Admin: 04/08/18 08:45 Dose: Not Given Ferrous Sulfate (Feosol) 325 mg PO DAILY [facility] Last Admin: 04/08/18 08:40 Dose: 325 mg Furosemide (Lasix) 40 mg IVP DAILY [facility] Last Admin: 04/08/18 08:42 Dose: 40 mg Heparin Sodium (Porcine) (Heparin) 5,000 units SC Q12 [facility] PRN Reason: Protocol Last Admin: 04/08/18 08:42 Dose: 5,000 units Hydromorphone HCl (Dilaudid) 1 mg IVP Q4 PRN PRN Reason: Pain, moderate (4-7) Last Admin: 04/08/18 05:31 Dose: 1 mg Vancomycin HCl 750 mg/ Sodium (Chloride) 250 mls @ 166.667 mls/hr IVPB DAILY [facility] PRN Reason: Protocol Last Admin: 04/08/18 08:39 Dose: 166.667 mls/hr Piperacillin Sod/Tazobactam (Sod 2.25 gm/ Sodium Chloride) 100 mls @ 100 mls/ hr IVPB Q8 [facility] PRN Reason: Protocol Last Admin: 04/08/18 08:39 Dose: 100 mls/hr Insulin Detemir (Levemir) 70 units SC HS [facility] Last Admin: 04/07/18 22:07 Dose: 70 units Insulin Human Lispro (Humalog) 0 units SC ACHS [facility] Last Admin: 04/08/18 07:10 Dose: Not Given Insulin Human Lispro (Humalog) 30 units SC AC [facility] Last Admin: 04/08/18 08:43 Dose: 30 u Isosorbide Mononitrate (Imdur) 60 mg PO DAILY [facility] Last Admin: 04/08/18 08:46 Dose: 60 mg Lactulose (Enulose) 10 gm PO DAILY PRN PRN Reason: Constipation Last Admin: 04/06/18 18:04 Dose: 10 gm Metoprolol Succinate (Toprol Xl) 200 mg PO Q12 [facility] Last Admin: 04/08/18 08:40 Dose: 200 mg Morphine Sulfate (Morphine Extended Release Tab) 30 mg PO Q8@0400,1200,2000 [facility] Last Admin: 04/08/18 03:55 Dose: 30 mg Ondansetron HCl (Zofran Inj) 4 mg IVP Q4 PRN PRN Reason: Nausea/Vomiting Oxycodone HCl (Oxycodone Immediate Release Tab) 30 mg PO Q6 PRN PRN Reason: Pain, moderate (4-7) Last Admin: 04/08/18 09:08 Dose: 30 mg Pantoprazole Sodium (Protonix Inj) 40 mg IVP DAILY [facility] Last Admin: 04/08/18 08:41 Dose: 40 mg - Labs Labs: - Additional Findings Additional findings: - Constitutional Appears: No Acute Distress - Head Exam Head Exam: ATRAUMATIC - Eye Exam Eye Exam: EOMI - ENT Exam ENT Exam: Normal Oropharynx - Neck Exam Neck exam: Positive for: Full Rom - Respiratory Exam Additional comments: good breath sounds heard b/l no wheezing - Cardiovascular Exam Cardiovascular Exam: RRR, +S1, +S2 - GI/Abdominal Exam GI & Abdominal Exam: Normal Bowel Sounds, Soft Additional comments: NT, ND - Extremities Exam Additional comments: right foot TMA (old) left foot in post surgical dressing and external fixation in place - Neurological Exam Neurological exam: Alert, Oriented x 3 Laboratory Results - last 72 hr 04/05/18 04/05/18 04/05/18 11:19 16:35 17:29 WBC 8.3 RBC 2.86 L Hgb 7.8 L D Hct 23.7 L MCV 82.6 MCH 27.2 MCHC 32.9 L RDW 17.3 H Plt Count 292 D MPV 7.9 Neut % (Auto) 87.4 H Lymph % (Auto) 7.2 L [place] % (Auto) 4.6 Eos % (Auto) 0.2 Baso % (Auto) 0.6 Neut # (Auto) 7.3 H Lymph # (Auto) 0.6 L [place] # (Auto) 0.4 Eos # (Auto) 0.0 Baso # (Auto) 0.0 Neutrophils % (Manual) 85 H Band Neutrophils % 3 H Lymphocytes % (Manual) 8 L Monocytes % (Manual) 4 Platelet Estimate Normal Polychromasia Slight Hypochromasia (manual) Slight Poikilocytosis (manual Slight Anisocytosis (manual) Moderate Microcytosis (manual) Slight Ovalocytes Slight Retic Count Hemoglobinopathy Red Blood Count Hemoglobinopathy Hct Hemoglobinopathy Hgb Hemoglobinopathy MCV Hemoglobinopathy MCH Hemoglobinopathy RDW Sodium Potassium Chloride Carbon Dioxide Anion Gap BUN Creatinine Est GFR ( Amer) Est GFR (Non-Af Amer) POC Glucose (mg/dL) 376 H 400 H* Random Glucose Calcium Iron TIBC % Saturation Ferritin Vitamin B12 Blood Type Antibody Screen Crossmatch BBK History Checked 04/05/18 04/05/18 04/05/18 17:29 21:06 23:48 WBC RBC Hgb Hct MCV MCH MCHC RDW Plt Count MPV Neut % (Auto) Lymph % (Auto) [place] % (Auto) Eos % (Auto) Baso % (Auto) Neut # (Auto) Lymph # (Auto) [place] # (Auto) Eos # (Auto) Baso # (Auto) Neutrophils % (Manual) Band Neutrophils % Lymphocytes % (Manual) Monocytes % (Manual) Platelet Estimate Polychromasia Hypochromasia (manual) Poikilocytosis (manual Anisocytosis (manual) Microcytosis (manual) Ovalocytes Retic Count Hemoglobinopathy Red Blood Count Hemoglobinopathy Hct Hemoglobinopathy Hgb Hemoglobinopathy MCV Hemoglobinopathy MCH Hemoglobinopathy RDW Sodium 136 Potassium 4.5 Chloride 101 Carbon Dioxide 28 Anion Gap 12 BUN 51 H Creatinine 1.8 H Est GFR ( Amer) 36 Est GFR (Non-Af Amer) 30 POC Glucose (mg/dL) 198 H 176 H Random Glucose 374 H Calcium 8.9 Iron TIBC % Saturation Ferritin Vitamin B12 Blood Type Antibody Screen Crossmatch BBK History Checked 04/06/18 04/06/18 04/06/18 01:41 04:35 04:35 WBC 6.9 RBC 2.79 L Hgb 7.5 L Hct 23.2 L MCV 83.0 MCH 27.0 MCHC 32.5 L RDW 17.1 H Plt Count 284 MPV Neut % (Auto) Lymph % (Auto) [place] % (Auto) Eos % (Auto) Baso % (Auto) Neut # (Auto) Lymph # (Auto) [place] # (Auto) Eos # (Auto) Baso # (Auto) Neutrophils % (Manual) Band Neutrophils % Lymphocytes % (Manual) Monocytes % (Manual) Platelet Estimate Polychromasia Hypochromasia (manual) Poikilocytosis (manual Anisocytosis (manual) Microcytosis (manual) Ovalocytes Retic Count Hemoglobinopathy Red Blood Count Hemoglobinopathy Hct Hemoglobinopathy Hgb Hemoglobinopathy MCV Hemoglobinopathy MCH Hemoglobinopathy RDW Sodium 139 Potassium 4.4 Chloride 103 Carbon Dioxide 28 Anion Gap 12 BUN 53 H Creatinine 1.7 H Est GFR ( Amer) 38 Est GFR (Non-Af Amer) 32 POC Glucose (mg/dL) 208 H Random Glucose 178 H Calcium 9.4 Iron TIBC % Saturation Ferritin Vitamin B12 Blood Type Antibody Screen Crossmatch BBK History Checked 04/06/18 04/06/1804/06/18 06:08 11:01 11:20 WBC RBC Hgb Hct MCV MCH MCHC RDW Plt Count MPV Neut % (Auto) Lymph % (Auto) [place] % (Auto) Eos % (Auto) Baso % (Auto) Neut # (Auto) Lymph # (Auto) [place] # (Auto) Eos # (Auto) Baso # (Auto) Neutrophils % (Manual) Band Neutrophils % Lymphocytes % (Manual) Monocytes % (Manual) Platelet Estimate Polychromasia Hypochromasia (manual) Poikilocytosis (manual Anisocytosis (manual) Microcytosis (manual) Ovalocytes Retic Count Hemoglobinopathy Red Blood Count Hemoglobinopathy Hct Hemoglobinopathy Hgb Hemoglobinopathy MCV Hemoglobinopathy MCH Hemoglobinopathy RDW Sodium Potassium Chloride Carbon Dioxide Anion Gap BUN Creatinine Est GFR ( Amer) Est GFR (Non-Af Amer) POC Glucose (mg/dL) 172 H 123 H Random Glucose Calcium Iron TIBC % Saturation Ferritin Vitamin B12 Blood Type B POSITIVE Antibody Screen Negative Crossmatch See Detail BBK History Checked Patient has bt 04/06/18 04/06/18 04/07/18 16:27 21:07 04:20 WBC 5.7 RBC 2.88 L Hgb 7.8 L Hct 23.9 L MCV 83.0 MCH 27.0 MCHC 32.5 L RDW 16.8 H Plt Count 278 MPV Neut % (Auto) Lymph % (Auto) [place] % (Auto) Eos % (Auto) Baso % (Auto) Neut # (Auto) Lymph # (Auto) [place] # (Auto) Eos # (Auto) Baso # (Auto) Neutrophils % (Manual) Band Neutrophils % Lymphocytes % (Manual) Monocytes % (Manual) Platelet Estimate Polychromasia Hypochromasia (manual) Poikilocytosis (manual Anisocytosis (manual) Microcytosis (manual) Ovalocytes Retic Count Hemoglobinopathy Red Blood Count Hemoglobinopathy Hct Hemoglobinopathy Hgb Hemoglobinopathy MCV Hemoglobinopathy MCH Hemoglobinopathy RDW Sodium Potassium Chloride Carbon Dioxide Anion Gap BUN Creatinine Est GFR ( Amer) Est GFR (Non-Af Amer) POC Glucose (mg/dL) 164 H 127 H Random Glucose Calcium Iron TIBC % Saturation Ferritin Vitamin B12 Blood Type Antibody Screen Crossmatch BBK History Checked 04/07/18 04/07/18 04/07/18 04:20 06:07 07:48 WBC RBC Hgb Hct MCV MCH MCHC RDW Plt Count MPV Neut % (Auto) Lymph % (Auto) [place] % (Auto) Eos % (Auto) Baso % (Auto) Neut # (Auto) Lymph # (Auto) [place] # (Auto) Eos # (Auto) Baso # (Auto) Neutrophils % (Manual) Band Neutrophils % Lymphocytes % (Manual) Monocytes % (Manual) Platelet Estimate Polychromasia Hypochromasia (manual) Poikilocytosis (manual Anisocytosis (manual) Microcytosis (manual) Ovalocytes Retic Count Hemoglobinopathy Red Blood Count Hemoglobinopathy Hct Hemoglobinopathy Hgb Hemoglobinopathy MCV Hemoglobinopathy MCH Hemoglobinopathy RDW Sodium 141 Potassium 4.9 Chloride 105 Carbon Dioxide 31 H Anion Gap 10 BUN 49 H Creatinine 1.6 H Est GFR ( Amer) 41 Est GFR (Non-Af Amer) 34 POC Glucose (mg/dL) 182 H 152 H Random Glucose 158 H Calcium 9.2 Iron TIBC % Saturation Ferritin Vitamin B12 Blood Type Antibody Screen Crossmatch BBK History Checked 04/07/18 04/07/18 04/07/18 10:29 10:29 10:29 WBC RBC Hgb Hct MCV MCH MCHC RDW Plt Count MPV Neut % (Auto) Lymph % (Auto) [place] % (Auto) Eos % (Auto) Baso % (Auto) Neut # (Auto) Lymph # (Auto) [place] # (Auto) Eos # (Auto) Baso # (Auto) Neutrophils % (Manual) Band Neutrophils % Lymphocytes % (Manual) Monocytes % (Manual) Platelet Estimate Polychromasia Hypochromasia (manual) Poikilocytosis (manual Anisocytosis (manual) Microcytosis (manual) Ovalocytes Retic Count 3.0 H Hemoglobinopathy Red Blood Count Hemoglobinopathy Hct Hemoglobinopathy Hgb Hemoglobinopathy MCV Hemoglobinopathy MCH Hemoglobinopathy RDW Sodium Potassium Chloride Carbon Dioxide Anion Gap BUN Creatinine Est GFR ( Amer) Est GFR (Non-Af Amer) POC Glucose (mg/dL) Random Glucose Calcium Iron 41 TIBC 283 % Saturation 14 L Ferritin 123.0 Vitamin B12 431 Blood Type Antibody Screen Crossmatch BBK History Checked 04/07/18 04/07/18 04/07/18 11:06 11:35 15:51 WBC RBC Hgb Hct MCV MCH MCHC RDW Plt Count MPV Neut % (Auto) Lymph % (Auto) [place] % (Auto) Eos % (Auto) Baso % (Auto) Neut # (Auto) Lymph # (Auto) [place] # (Auto) Eos # (Auto) Baso # (Auto) Neutrophils % (Manual) Band Neutrophils % Lymphocytes % (Manual) Monocytes % (Manual) Platelet Estimate Polychromasia Hypochromasia (manual) Poikilocytosis (manual Anisocytosis (manual) Microcytosis (manual) Ovalocytes Retic Count Hemoglobinopathy Red Blood Count 2.84 L Hemoglobinopathy Hct 24.2 L Hemoglobinopathy Hgb 7.6 L Hemoglobinopathy MCV 85.3 Hemoglobinopathy MCH 26.8 L Hemoglobinopathy RDW 17.8 H Sodium Potassium Chloride Carbon Dioxide Anion Gap BUN Creatinine Est GFR ( Amer) Est GFR (Non-Af Amer) POC Glucose (mg/dL) 201 H 58 L Random Glucose Calcium Iron TIBC % Saturation Ferritin Vitamin B12 Blood Type Antibody Screen Crossmatch BBK History Checked 04/07/18 04/07/18 04/08/18 16:46 21:00 05:18 WBC RBC Hgb Hct MCV MCH MCHC RDW Plt Count MPV Neut % (Auto) Lymph % (Auto) [place] % (Auto) Eos % (Auto) Baso % (Auto) Neut # (Auto) Lymph # (Auto) [place] # (Auto) Eos # (Auto) Baso # (Auto) Neutrophils % (Manual) Band Neutrophils % Lymphocytes % (Manual) Monocytes % (Manual) Platelet Estimate Polychromasia Hypochromasia (manual) Poikilocytosis (manual Anisocytosis (manual) Microcytosis (manual) Ovalocytes Retic Count Hemoglobinopathy Red Blood Count Hemoglobinopathy Hct Hemoglobinopathy Hgb Hemoglobinopathy MCV Hemoglobinopathy MCH Hemoglobinopathy RDW Sodium Potassium Chloride Carbon Dioxide Anion Gap BUN Creatinine Est GFR ( Amer) Est GFR (Non-Af Amer) POC Glucose (mg/dL) 90 211 H 258 H Random Glucose Calcium Iron TIBC % Saturation Ferritin Vitamin B12 Blood Type Antibody Screen Crossmatch BBK History Checked 04/08/18 10:38 WBC RBC Hgb Hct MCV MCH MCHC RDW Plt Count MPV Neut % (Auto) Lymph % (Auto) [place] % (Auto) Eos % (Auto) Baso % (Auto) Neut # (Auto) Lymph # (Auto) [place] # (Auto) Eos # (Auto) Baso # (Auto) Neutrophils % (Manual) Band Neutrophils % Lymphocytes % (Manual) Monocytes % (Manual) Platelet Estimate Polychromasia Hypochromasia (manual) Poikilocytosis (manual Anisocytosis (manual) Microcytosis (manual) Ovalocytes Retic Count Hemoglobinopathy Red Blood Count Hemoglobinopathy Hct Hemoglobinopathy Hgb Hemoglobinopathy MCV Hemoglobinopathy MCH Hemoglobinopathy RDW Sodium Potassium Chloride Carbon Dioxide Anion Gap BUN Creatinine Est GFR ( Amer) Est GFR (Non-Af Amer) POC Glucose (mg/dL) 237 H Random Glucose Calcium Iron TIBC % Saturation Ferritin Vitamin B12 Blood Type Antibody Screen Crossmatch BBK History Checked Microbiology 04/05/18 15:00 Naris MRSA Culture (Admit) - Final MRSA NOT DETECTED 03/31/18 17:36 Naris MRSA Culture (Admit) - Final MRSA NOT DETECTED 03/28/18 05:00 Nose MRSA Culture (Admit) - Final MRSA NOT DETECTED Assessment and Plan (1) Acute pulmonary edema Status: Acute (2) Diabetes mellitus with hyperglycemia Status: Chronic (3) Charcot's joint arthropathy in type 2 diabetes mellitus Status: Acute (4) Diabetic foot ulcer Status: Acute - Assessment and Plan (Free Text) Assessment: A/P- 52 year old female with CAD, HTN, DM II was originally admitted with left plantar foot open wound and surrounding erythema . s/p left charcot foot surgery with external fixation POD #9. anemic getting PRBC afebrile leukocytosis has resolved. blood cx- neg x 2 foot wound cx- corynebacterium Initial CT report- ? acute or chronic Om as per report High ESR asper podiatry discussion today no Om of the left plantar foot and no debridement of the plantar wound, only second charcot surgery for next week. as per podiatry they will plan on outpatient wound treatment . plan- advise to continue with renal dose zosyn. day #22 completed 9 days of Iv daptomycin , switched to IV vancomycin 10 days ago ( renal Dose). keep vanco trough <15. advise at least another week of empiric IV abx till second part of the charcot surgery is done since pt. has external hardware in place and would like to minimize the chance of infection there. all above d/w patient and she verbalizes full understanding of all above.
--- NOTE | 2018-04-08 14:40 | CP.PCM.PN ---
Subjective - Date & Time of Evaluation Date of Evaluation: 04/08/18 Time of Evaluation: 14:40 - Subjective Subjective: CASE DISCUSSED WITH PT AND HER FATHER LESS L FOOT PAIN Objective - Vital Signs/Intake and Output Vital Signs (last 24 hours): Temp Pulse Resp BP Pulse Ox 97.9 F 72 20 189/80 H 100 04/08/18 08:22 04/08/18 08:44 04/08/18 08:22 04/08/18 08:44 04/08/18 08:22 - Medications Medications: Current Medications Acetaminophen (Tylenol 325mg Tab) 650 mg PO Q4 PRN PRN Reason: Pain, Mild (1-3) Albuterol/Ipratropium (Duoneb 3 Mg/0.5 Mg (3 Ml) Ud) 3 ml INH RQ6 PRN PRN Reason: Shortness of Breath Alprazolam (Xanax) 0.25 mg PO BID PRN PRN Reason: Anxiety Stop: 04/12/18 19:25 Amlodipine Besylate (Norvasc) 10 mg PO DAILY [facility] Last Admin: 04/08/18 08:40 Dose: 10 mg Aspirin (Ecotrin) 81 mg PO DAILY [facility] Last Admin: 04/08/18 08:44 Dose: 81 mg Atorvastatin Calcium (Lipitor) 40 mg PO HS [facility] Last Admin: 04/07/18 22:07 Dose: 40 mg Clonidine HCl (Catapres) 0.2 mg PO BID [facility] Last Admin: 04/08/18 08:44 Dose: 0.2 mg Docusate Sodium (Colace) 100 mg PO DAILY PRN PRN Reason: Constipation Enalapril Maleate (Vasotec) 20 mg PO BID [facility] Last Admin: 04/08/18 08:41 Dose: 20 mg Ferrous Sulfate (Feosol) 325 mg PO TID [facility] Last Admin: 04/08/18 12:12 Dose: 325 mg Furosemide (Lasix) 40 mg IVP DAILY [facility] Last Admin: 04/08/18 08:42 Dose: 40 mg Heparin Sodium (Porcine) (Heparin) 5,000 units SC Q12 [facility] PRN Reason: Protocol Last Admin: 04/08/18 08:42 Dose: 5,000 units Hydromorphone HCl (Dilaudid) 1 mg IVP Q4 PRN PRN Reason: Pain, moderate (4-7) Last Admin: 04/08/18 12:19 Dose: 1 mg Vancomycin HCl 750 mg/ Sodium (Chloride) 250 mls @ 166.667 mls/hr IVPB DAILY [facility] PRN Reason: Protocol Last Admin: 04/08/18 08:39 Dose: 166.667 mls/hr Piperacillin Sod/Tazobactam (Sod 2.25 gm/ Sodium Chloride) 100 mls @ 100 mls/ hr IVPB Q8 [facility] PRN Reason: Protocol Last Admin: 04/08/18 08:39 Dose: 100 mls/hr Insulin Detemir (Levemir) 70 units SC HS [facility] Last Admin: 04/07/18 22:07 Dose: 70 units Insulin Human Lispro (Humalog) 0 units SC ACHS [facility] Last Admin: 04/08/18 12:12 Dose: Not Given Insulin Human Lispro (Humalog) 30 units SC AC [facility] Last Admin: 04/08/18 12:13 Dose: 30 u Isosorbide Mononitrate (Imdur) 60 mg PO DAILY [facility] Last Admin: 04/08/18 08:46 Dose: 60 mg Lactulose (Enulose) 10 gm PO DAILY PRN PRN Reason: Constipation Last Admin: 04/06/18 18:04 Dose: 10 gm Metoprolol Succinate (Toprol Xl) 200 mg PO Q12 [facility] Last Admin: 04/08/18 08:40 Dose: 200 mg Morphine Sulfate (Morphine Extended Release Tab) 30 mg PO Q8@0400,1200,2000 [facility] Last Admin: 04/08/18 12:11 Dose: 30 mg Ondansetron HCl (Zofran Inj) 4 mg IVP Q4 PRN PRN Reason: Nausea/Vomiting Oxycodone HCl (Oxycodone Immediate Release Tab) 30 mg PO Q6 PRN PRN Reason: Pain, moderate (4-7) Last Admin: 04/08/18 09:08 Dose: 30 mg Pantoprazole Sodium (Protonix Inj) 40 mg IVP DAILY [facility] Last Admin: 04/08/18 08:41 Dose: 40 mg - Labs Labs: 04/07/18 04:20 04/07/18 04:20 PT 12.1 Seconds (9.8-13.1) 04/02/18 19:00 INR 1.1 04/02/18 19:00 APTT 30.7 Seconds (25.6-37.1) 04/02/18 19:00 - Constitutional Appears: Chronically Ill - Head Exam Head Exam: ATRAUMATIC, NORMAL INSPECTION, NORMOCEPHALIC - Eye Exam Eye Exam: EOMI, Normal appearance, PERRL Pupil Exam: NORMAL ACCOMODATION, PERRL - ENT Exam ENT Exam: Mucous Membranes Moist, Normal Exam - Neck Exam Neck Exam: Full ROM, Normal Inspection. absent: Lymphadenopathy - Respiratory Exam Respiratory Exam: Clear to Ausculation Bilateral, NORMAL BREATHING PATTERN - Cardiovascular Exam Cardiovascular Exam: REGULAR RHYTHM, +S1, +S2. absent: Murmur - GI/Abdominal Exam GI & Abdominal Exam: Soft, Normal Bowel Sounds. absent: Tenderness - Rectal Exam Rectal Exam: NORMAL INSPECTION - Extremities Exam Extremities Exam: Tenderness. absent: Joint Swelling, Pedal Edema Additional comments: L FOOT IN SURGICAL HARDWARE - Back Exam Back Exam: NORMAL INSPECTION - Neurological Exam Neurological Exam: Abnormal Gait, Alert, Awake, CN II-XII Intact, Oriented x3 - Psychiatric Exam Psychiatric exam: Normal Affect, Normal Mood - Skin Skin Exam: Dry, Intact, Normal Color, Warm Assessment and Plan - Assessment and Plan (Free Text) Assessment: OSTEOMYELITIS OF L FOOT CHARCORT L FOOT DM HTN DM PVD CHF-STABLE Plan: CONTINUE CURRENT RX FOR SUBACUTE CARE PRIOR TO NEXT SURGERY ON L FOOT
--- NOTE | 2018-04-08 15:09 | CP.PCM.PN ---
Subjective - Date & Time of Evaluation Date of Evaluation: 04/08/18 Time of Evaluation: 15:08 - Subjective Subjective: Podiatry progress note for attending Dr. Macdonald: 51 yo female seen and evaluated 11 days s/p left foot charcot neuroarthropathy reconstruction with external fixation. Patient is AAOx3. Patient today is not in acute distress, She was sitting comfortably in her bed. Patient reports she is doing better since being moved from ICU. Patient reports pain is controlled. Patient states that her right foot ulcer is stable now. Patient denies any other pedal complaint at this time. She denies any overnight N/V/F. Objective - Vital Signs/Intake and Output Vital Signs (last 24 hours): Temp Pulse Resp BP Pulse Ox 97.9 F 72 20 189/80 H 100 04/08/18 08:22 04/08/18 08:44 04/08/18 08:22 04/08/18 08:44 04/08/18 08:22 - Medications Medications: Current Medications Acetaminophen (Tylenol 325mg Tab) 650 mg PO Q4 PRN PRN Reason: Pain, Mild (1-3) Albuterol/Ipratropium (Duoneb 3 Mg/0.5 Mg (3 Ml) Ud) 3 ml INH RQ6 PRN PRN Reason: Shortness of Breath Alprazolam (Xanax) 0.25 mg PO BID PRN PRN Reason: Anxiety Stop: 04/12/18 19:25 Amlodipine Besylate (Norvasc) 10 mg PO DAILY [facility] Last Admin: 04/08/18 08:40 Dose: 10 mg Aspirin (Ecotrin) 81 mg PO DAILY [facility] Last Admin: 04/08/18 08:44 Dose: 81 mg Atorvastatin Calcium (Lipitor) 40 mg PO HS [facility] Last Admin: 04/07/18 22:07 Dose: 40 mg Clonidine HCl (Catapres) 0.2 mg PO BID [facility] Last Admin: 04/08/18 08:44 Dose: 0.2 mg Docusate Sodium (Colace) 100 mg PO DAILY PRN PRN Reason: Constipation Enalapril Maleate (Vasotec) 20 mg PO BID [facility] Last Admin: 04/08/18 08:41 Dose: 20 mg Ferrous Sulfate (Feosol) 325 mg PO TID [facility] Last Admin: 04/08/18 12:12 Dose: 325 mg Furosemide (Lasix) 40 mg IVP DAILY [facility] Last Admin: 04/08/18 08:42 Dose: 40 mg Heparin Sodium (Porcine) (Heparin) 5,000 units SC Q12 [facility] PRN Reason: Protocol Last Admin: 04/08/18 08:42 Dose: 5,000 units Hydromorphone HCl (Dilaudid) 1 mg IVP Q4 PRN PRN Reason: Pain, moderate (4-7) Last Admin: 04/08/18 12:19 Dose: 1 mg Vancomycin HCl 750 mg/ Sodium (Chloride) 250 mls @ 166.667 mls/hr IVPB DAILY [facility] PRN Reason: Protocol Last Admin: 04/08/18 08:39 Dose: 166.667 mls/hr Piperacillin Sod/Tazobactam (Sod 2.25 gm/ Sodium Chloride) 100 mls @ 100 mls/ hr IVPB Q8 [facility] PRN Reason: Protocol Last Admin: 04/08/18 08:39 Dose: 100 mls/hr Insulin Detemir (Levemir) 70 units SC HS [facility] Last Admin: 04/07/18 22:07 Dose: 70 units Insulin Human Lispro (Humalog) 0 units SC ACHS [facility] Last Admin: 04/08/18 12:12 Dose: Not Given Insulin Human Lispro (Humalog) 30 units SC AC [facility] Last Admin: 04/08/18 12:13 Dose: 30 u Isosorbide Mononitrate (Imdur) 60 mg PO DAILY [facility] Last Admin: 04/08/18 08:46 Dose: 60 mg Lactulose (Enulose) 10 gm PO DAILY PRN PRN Reason: Constipation Last Admin: 04/06/18 18:04 Dose: 10 gm Metoprolol Succinate (Toprol Xl) 200 mg PO Q12 [facility] Last Admin: 04/08/18 08:40 Dose: 200 mg Morphine Sulfate (Morphine Extended Release Tab) 30 mg PO Q8@0400,1200,2000 [facility] Last Admin: 04/08/18 12:11 Dose: 30 mg Ondansetron HCl (Zofran Inj) 4 mg IVP Q4 PRN PRN Reason: Nausea/Vomiting Oxycodone HCl (Oxycodone Immediate Release Tab) 30 mg PO Q6 PRN PRN Reason: Pain, moderate (4-7) Last Admin: 04/08/18 09:08 Dose: 30 mg Pantoprazole Sodium (Protonix Inj) 40 mg IVP DAILY [facility] Last Admin: 04/08/18 08:41 Dose: 40 mg - Labs Labs: 04/07/18 04:20 04/07/18 04:20 PT 12.1 Seconds (9.8-13.1) 04/02/18 19:00 INR 1.1 04/02/18 19:00 APTT 30.7 Seconds (25.6-37.1) 04/02/18 19:00 - Constitutional Appears: Well, Non-toxic, No Acute Distress - Head Exam Head Exam: ATRAUMATIC, NORMOCEPHALIC - Extremities Exam Additional comments: Dressings kept intact - Neurological Exam Neurological Exam: Alert, Awake, Oriented x3 - Psychiatric Exam Psychiatric exam: Normal Affect, Normal Mood Assessment and Plan - Assessment and Plan (Free Text) Assessment: 52 y/o patient seen at bedside 11 days s/p left foot charcot neuroarthropathy reconstruction using external fixation device Plan: Patient seen and evaluated at the bedside. Discussed in detail with Dr. Macdonald Charts and labs reviewed: afrebrile and absent leukocytosis Dressing kept intact Patient H&H- medicine will continue to monitor patient Patient right plantar wound stable and dressed with xeroform/DSD Patient left plantar wound debrided with a sterile #15 blade and dressed with xeroform/DSD New 3 views X-ray ordered for the left foot Discussed future plan with medicine- patient will be transferred to [facility] once stable Patient second Podiatric surgery postponed until patient stable Continue IV Antibiotics Podiatry will continue to follow up patient while in house
[2018-04-08] MEDS: Insulin Detemir 100 Units/ml Inj SC SCH (21:54)
[2018-04-09] MEDS: Morphine 30 mg SR Tab PO SCH ×3 (05:05→20:34)
[2018-04-09] MEDS: Lactulose 10 gm/15 ml Syrup PO PRN (05:41)
[2018-04-09] MEDS: Insulin Lispro (humaLOG) 100 Units/ml Inj SC SCH ×7 (08:21→22:34)
[2018-04-09] MEDS: Metoprolol Succinate 100 mg XL Tab PO SCH ×2 (08:52→20:49)
--- NOTE | 2018-04-09 09:05 | CP.PCM.PN ---
Subjective - Date & Time of Evaluation Date of Evaluation: 04/09/18 Time of Evaluation: 08:35 - Subjective Subjective: Chart reviewed. Events noted. Patient is doing better clinically. She's alert and oriented, and her pain is largely controlled. She's on her home regimen of MS Contin, Roxicodone 30mg, and with severe pain Dilaudid 1mg IV. She denies side effects from the regimen and states that she's satisified with the regimen. There are no new complaints. Objective - Vital Signs/Intake and Output Vital Signs (last 24 hours): Temp Pulse Resp BP Pulse Ox 98.3 F 68 18 165/73 H 99 04/09/18 08:04 04/09/18 08:04 04/09/18 08:04 04/09/18 08:04 04/09/18 08:04 - Medications Medications: Current Medications Acetaminophen (Tylenol 325mg Tab) 650 mg PO Q4 PRN PRN Reason: Pain, Mild (1-3) Albuterol/Ipratropium (Duoneb 3 Mg/0.5 Mg (3 Ml) Ud) 3 ml INH RQ6 PRN PRN Reason: Shortness of Breath Alprazolam (Xanax) 0.25 mg PO BID PRN PRN Reason: Anxiety Stop: 04/12/18 19:25 Amlodipine Besylate (Norvasc) 10 mg PO DAILY [facility] Last Admin: 04/09/18 08:52 Dose: 10 mg Aspirin (Ecotrin) 81 mg PO DAILY [facility] Last Admin: 04/09/18 08:52 Dose: 81 mg Atorvastatin Calcium (Lipitor) 40 mg PO HS [facility] Last Admin: 04/08/18 21:56 Dose: 40 mg Clonidine HCl (Catapres) 0.2 mg PO BID [facility] Last Admin: 04/09/18 08:52 Dose: 0.2 mg Docusate Sodium (Colace) 100 mg PO DAILY PRN PRN Reason: Constipation Last Admin: 04/09/18 08:51 Dose: 100 mg Enalapril Maleate (Vasotec) 20 mg PO BID [facility] Last Admin: 04/09/18 08:52 Dose: 20 mg Ferrous Sulfate (Feosol) 325 mg PO TID [facility] Last Admin: 04/09/18 08:51 Dose: 325 mg Furosemide (Lasix) 40 mg IVP DAILY [facility] Last Admin: 04/08/18 08:42 Dose: 40 mg Heparin Sodium (Porcine) (Heparin) 5,000 units SC Q12 [facility] PRN Reason: Protocol Last Admin: 04/09/18 08:53 Dose: 5,000 units Hydromorphone HCl (Dilaudid) 1 mg IVP Q4 PRN PRN Reason: Pain, moderate (4-7) Last Admin: 04/09/18 07:13 Dose: 1 mg Vancomycin HCl 750 mg/ Sodium (Chloride) 250 mls @ 166.667 mls/hr IVPB DAILY [facility] PRN Reason: Protocol Last Admin: 04/08/18 08:39 Dose: 166.667 mls/hr Piperacillin Sod/Tazobactam (Sod 2.25 gm/ Sodium Chloride) 100 mls @ 100 mls/ hr IVPB Q8 [facility] PRN Reason: Protocol Last Admin: 04/09/18 01:23 Dose: 100 mls/hr Insulin Detemir (Levemir) 70 units SC HS [facility] Last Admin: 04/08/18 21:54 Dose: 70 units Insulin Human Lispro (Humalog) 0 units SC ACHS [facility] Last Admin: 04/09/18 08:21 Dose: Not Given Insulin Human Lispro (Humalog) 30 units SC AC [facility] Last Admin: 04/08/18 16:09 Dose: Not Given Isosorbide Mononitrate (Imdur) 60 mg PO DAILY [facility] Last Admin: 04/09/18 08:51 Dose: 60 mg Lactulose (Enulose) 10 gm PO DAILY PRN PRN Reason: Constipation Last Admin: 04/09/18 05:41 Dose: 10 gm Metoprolol Succinate (Toprol Xl) 200 mg PO Q12 [facility] Last Admin: 04/09/18 08:52 Dose: 200 mg Morphine Sulfate (Morphine Extended Release Tab) 30 mg PO Q8@0400,1200,2000 [facility] Last Admin: 04/09/18 05:05 Dose: 30 mg Ondansetron HCl (Zofran Inj) 4 mg IVP Q4 PRN PRN Reason: Nausea/Vomiting Oxycodone HCl (Oxycodone Immediate Release Tab) 30 mg PO Q6 PRN PRN Reason: Pain, moderate (4-7) Last Admin: 04/08/18 09:08 Dose: 30 mg Pantoprazole Sodium (Protonix Inj) 40 mg IVP DAILY [facility] Last Admin: 04/09/18 08:54 Dose: 40 mg - Labs Labs: 04/07/18 04:20 04/07/18 04:20 PT 12.1 Seconds (9.8-13.1) 04/02/18 19:00 INR 1.1 04/02/18 19:00 APTT 30.7 Seconds (25.6-37.1) 04/02/18 19:00 - Extremities Exam Additional comments: Dressings intact in both legs. 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 There are no acute issues with pain management. - continue current regimen - patient can follow up with own pain specialist, Dr. Escobedo, upon discharge Status: Acute
[2018-04-09 09:44] LABS: HEMOGLOBIN 8.3 g/dL (12.0-16.0); MEAN CELL VOLUME 83.4 fl (81.0-99.0); MEAN CORPUSCULAR HEMOGLOBIN 27.5 pg (27.0-31.0); RBC 3.02 Mil/uL (3.80-5.20); RED CELL DISTRIBUTION WIDTH 17.3 % (11.5-14.5); WHITE BLOOD COUNT 6.3 K/uL (4.8-10.8)
--- NOTE | 2018-04-09 11:13 | CP.PCM.PN ---
Subjective - Date & Time of Evaluation Date of Evaluation: 04/09/18 Time of Evaluation: 11:13 - Subjective Subjective: FEELS SLIGHTLY BETTER LESS LEG PAIN Objective - Vital Signs/Intake and Output Vital Signs (last 24 hours): Temp Pulse Resp BP Pulse Ox 98.3 F 68 18 165/73 H 99 04/09/18 08:04 04/09/18 08:04 04/09/18 08:04 04/09/18 09:06 04/09/18 08:04 - Medications Medications: Current Medications Acetaminophen (Tylenol 325mg Tab) 650 mg PO Q4 PRN PRN Reason: Pain, Mild (1-3) Albuterol/Ipratropium (Duoneb 3 Mg/0.5 Mg (3 Ml) Ud) 3 ml INH RQ6 PRN PRN Reason: Shortness of Breath Alprazolam (Xanax) 0.25 mg PO BID PRN PRN Reason: Anxiety Stop: 04/12/18 19:25 Amlodipine Besylate (Norvasc) 10 mg PO DAILY [facility] Last Admin: 04/09/18 08:52 Dose: 10 mg Aspirin (Ecotrin) 81 mg PO DAILY [facility] Last Admin: 04/09/18 08:52 Dose: 81 mg Atorvastatin Calcium (Lipitor) 40 mg PO HS [facility] Last Admin: 04/08/18 21:56 Dose: 40 mg Clonidine HCl (Catapres) 0.2 mg PO BID [facility] Last Admin: 04/09/18 08:52 Dose: 0.2 mg Docusate Sodium (Colace) 100 mg PO DAILY PRN PRN Reason: Constipation Last Admin: 04/09/18 08:51 Dose: 100 mg Enalapril Maleate (Vasotec) 20 mg PO BID [facility] Last Admin: 04/09/18 08:52 Dose: 20 mg Ferrous Sulfate (Feosol) 325 mg PO TID [facility] Last Admin: 04/09/18 08:51 Dose: 325 mg Furosemide (Lasix) 40 mg IVP DAILY [facility] Last Admin: 04/09/18 09:06 Dose: 40 mg Heparin Sodium (Porcine) (Heparin) 5,000 units SC Q12 [facility] PRN Reason: Protocol Last Admin: 04/09/18 08:53 Dose: 5,000 units Hydromorphone HCl (Dilaudid) 1 mg IVP Q4 PRN PRN Reason: Pain, moderate (4-7) Last Admin: 04/09/18 07:13 Dose: 1 mg Vancomycin HCl 750 mg/ Sodium (Chloride) 250 mls @ 166.667 mls/hr IVPB DAILY [facility] PRN Reason: Protocol Last Admin: 04/08/18 08:39 Dose: 166.667 mls/hr Piperacillin Sod/Tazobactam (Sod 2.25 gm/ Sodium Chloride) 100 mls @ 100 mls/ hr IVPB Q8 [facility] PRN Reason: Protocol Last Admin: 04/09/18 09:06 Dose: 100 mls/hr Insulin Detemir (Levemir) 70 units SC HS [facility] Last Admin: 04/08/18 21:54 Dose: 70 units Insulin Human Lispro (Humalog) 0 units SC ACHS [facility] Last Admin: 04/09/18 08:21 Dose: Not Given Insulin Human Lispro (Humalog) 30 units SC AC [facility] Last Admin: 04/09/18 08:59 Dose: 30 u Isosorbide Mononitrate (Imdur) 60 mg PO DAILY [facility] Last Admin: 04/09/18 08:51 Dose: 60 mg Lactulose (Enulose) 10 gm PO DAILY PRN PRN Reason: Constipation Last Admin: 04/09/18 05:41 Dose: 10 gm Metoprolol Succinate (Toprol Xl) 200 mg PO Q12 [facility] Last Admin: 04/09/18 08:52 Dose: 200 mg Morphine Sulfate (Morphine Extended Release Tab) 30 mg PO Q8@0400,1200,2000 [facility] Last Admin: 04/09/18 05:05 Dose: 30 mg Ondansetron HCl (Zofran Inj) 4 mg IVP Q4 PRN PRN Reason: Nausea/Vomiting Oxycodone HCl (Oxycodone Immediate Release Tab) 30 mg PO Q6 PRN PRN Reason: Pain, moderate (4-7) Last Admin: 04/08/18 09:08 Dose: 30 mg Pantoprazole Sodium (Protonix Inj) 40 mg IVP DAILY [facility] Last Admin: 04/09/18 08:54 Dose: 40 mg - Labs Labs: 04/09/18 09:30 04/07/18 04:20 PT 12.1 Seconds (9.8-13.1) 04/02/18 19:00 INR 1.1 04/02/18 19:00 APTT 30.7 Seconds (25.6-37.1) 04/02/18 19:00 - Constitutional Appears: Chronically Ill - Head Exam Head Exam: ATRAUMATIC, NORMAL INSPECTION, NORMOCEPHALIC - Eye Exam Eye Exam: EOMI, Normal appearance, PERRL Pupil Exam: NORMAL ACCOMODATION, PERRL - ENT Exam ENT Exam: Mucous Membranes Moist, Normal Exam - Neck Exam Neck Exam: Full ROM, Normal Inspection. absent: Lymphadenopathy - Respiratory Exam Respiratory Exam: Clear to Ausculation Bilateral, NORMAL BREATHING PATTERN - Cardiovascular Exam Cardiovascular Exam: REGULAR RHYTHM, +S1, +S2. absent: Murmur - GI/Abdominal Exam GI & Abdominal Exam: Soft, Normal Bowel Sounds. absent: Tenderness - Rectal Exam Rectal Exam: NORMAL INSPECTION - Extremities Exam Extremities Exam: Tenderness. absent: Joint Swelling, Pedal Edema Additional comments: L FOOT - Back Exam Back Exam: NORMAL INSPECTION - Neurological Exam Neurological Exam: Alert, Awake, CN II-XII Intact, Normal Gait, Oriented x3 - Psychiatric Exam Psychiatric exam: Normal Affect, Normal Mood - Skin Skin Exam: Dry, Intact, Normal Color, Warm Assessment and Plan - Assessment and Plan (Free Text) Assessment: OSTEOMYELITIS OF L FOOT DM HTN PVD ANEMIA Plan: CONTINUE CURRENT RX
--- NOTE | 2018-04-09 14:18 | CP.PCM.PN ---
Subjective - Date & Time of Evaluation Date of Evaluation: 04/09/18 Time of Evaluation: 12:00 - Subjective Subjective: Podiatry progress note for attending Dr. Macdonald: 51 yo female seen and evaluated 12 days s/p left foot charcot neuroarthropathy reconstruction with external fixation. Patient is laying comfortably in bed, AAOx3 and in NAD. Patient rates her pain 6/10 today and localized at the ankle. Patient reports she would have random stabbing sensation once a while. Patient reports pain is well controlled. She is able to sleep without issues. Patient states that her right foot ulcer is stable now. Patient denies any other pedal complaint at this time. She denies any overnight N/V/F. Objective - Vital Signs/Intake and Output Vital Signs (last 24 hours): Temp Pulse Resp BP Pulse Ox 98.3 F 68 18 165/73 H 99 04/09/18 08:04 04/09/18 08:04 04/09/18 08:04 04/09/18 09:06 04/09/18 08:04 - Medications Medications: Current Medications Acetaminophen (Tylenol 325mg Tab) 650 mg PO Q4 PRN PRN Reason: Pain, Mild (1-3) Albuterol/Ipratropium (Duoneb 3 Mg/0.5 Mg (3 Ml) Ud) 3 ml INH RQ6 PRN PRN Reason: Shortness of Breath Alprazolam (Xanax) 0.25 mg PO BID PRN PRN Reason: Anxiety Stop: 04/12/18 19:25 Amlodipine Besylate (Norvasc) 10 mg PO DAILY [facility] Last Admin: 04/09/18 08:52 Dose: 10 mg Aspirin (Ecotrin) 81 mg PO DAILY [facility] Last Admin: 04/09/18 08:52 Dose: 81 mg Atorvastatin Calcium (Lipitor) 40 mg PO HS [facility] Last Admin: 04/08/18 21:56 Dose: 40 mg Clonidine HCl (Catapres) 0.2 mg PO BID [facility] Last Admin: 04/09/18 08:52 Dose: 0.2 mg Docusate Sodium (Colace) 100 mg PO DAILY PRN PRN Reason: Constipation Last Admin: 04/09/18 08:51 Dose: 100 mg Enalapril Maleate (Vasotec) 20 mg PO BID [facility] Last Admin: 04/09/18 08:52 Dose: 20 mg Ferrous Sulfate (Feosol) 325 mg PO TID [facility] Last Admin: 04/09/18 13:02 Dose: 325 mg Furosemide (Lasix) 40 mg IVP DAILY [facility] Last Admin: 04/09/18 09:06 Dose: 40 mg Heparin Sodium (Porcine) (Heparin) 5,000 units SC Q12 [facility] PRN Reason: Protocol Last Admin: 04/09/18 08:53 Dose: 5,000 units Hydromorphone HCl (Dilaudid) 1 mg IVP Q4 PRN PRN Reason: Pain, moderate (4-7) Last Admin: 04/09/18 07:13 Dose: 1 mg Vancomycin HCl 750 mg/ Sodium (Chloride) 250 mls @ 166.667 mls/hr IVPB DAILY [facility] PRN Reason: Protocol Last Admin: 04/09/18 11:23 Dose: 166.667 mls/hr Piperacillin Sod/Tazobactam (Sod 2.25 gm/ Sodium Chloride) 100 mls @ 100 mls/ hr IVPB Q8 [facility] PRN Reason: Protocol Last Admin: 04/09/18 09:06 Dose: 100 mls/hr Insulin Detemir (Levemir) 70 units SC HS [facility] Last Admin: 04/08/18 21:54 Dose: 70 units Insulin Human Lispro (Humalog) 0 units SC ACHS [facility] Last Admin: 04/09/18 12:17 Dose: Not Given Insulin Human Lispro (Humalog) 30 units SC AC [facility] Last Admin: 04/09/18 13:02 Dose: 30 u Isosorbide Mononitrate (Imdur) 60 mg PO DAILY [facility] Last Admin: 04/09/18 08:51 Dose: 60 mg Lactulose (Enulose) 10 gm PO DAILY PRN PRN Reason: Constipation Last Admin: 04/09/18 05:41 Dose: 10 gm Metoprolol Succinate (Toprol Xl) 200 mg PO Q12 [facility] Last Admin: 04/09/18 08:52 Dose: 200 mg Morphine Sulfate (Morphine Extended Release Tab) 30 mg PO Q8@0400,1200,2000 [facility] Last Admin: 04/09/18 11:23 Dose: 30 mg Ondansetron HCl (Zofran Inj) 4 mg IVP Q4 PRN PRN Reason: Nausea/Vomiting Oxycodone HCl (Oxycodone Immediate Release Tab) 30 mg PO Q6 PRN PRN Reason: Pain, moderate (4-7) Last Admin: 04/08/18 09:08 Dose: 30 mg Pantoprazole Sodium (Protonix Inj) 40 mg IVP DAILY [facility] Last Admin: 04/09/18 08:54 Dose: 40 mg - Labs Labs: 04/09/18 09:30 04/07/18 04:20 PT 12.1 Seconds (9.8-13.1) 04/02/18 19:00 INR 1.1 04/02/18 19:00 APTT 30.7 Seconds (25.6-37.1) 04/02/18 19:00 - Constitutional Appears: Well, Non-toxic, No Acute Distress - Extremities Exam Extremities Exam: absent: Calf Tenderness Additional comments: Dressing is clean, dry, and intact No strikethrough HELGA dressing intact Temperature gradient WNL 1-5 digits AROM present - Neurological Exam Neurological Exam: Alert, Awake, Oriented x3 - Psychiatric Exam Psychiatric exam: Normal Affect, Normal Mood Assessment and Plan - Assessment and Plan (Free Text) Assessment: 52F 12 days s/p left foot charcot neuroarthropathy reconstruction using external fixation device Plan: Patient seen and evaluated at the bedside Discussed in detail with Dr. Macdonald Charts and labs reviewed: afebrile and absent leukocytosis Dressing keep clean, dry, and intact H/H- management per medicine Dressing kept clean, dry and intact X-rays left foot (04/07/18) -stable postoperative findings Discussed future plan with medicine- patient will be transferred to [facility] once stable Patient second Podiatric surgery postponed until patient stable Continue IV Antibiotics Podiatry will continue to follow up patient while in house
--- NOTE | 2018-04-09 15:11 | PN ---
DATE: 04/09/2018 ENDO FOLLOWUP NOTE LOCATION: In room 660. SUBJECTIVE: This is a 52-year-old female with recent uncontrolled type 2 insulin-requiring diabetes, now being followed closely for metabolic management. Her glycemic levels are fluctuating, but improved and the glucose levels overnight have ranged from 241 to 279 mg/dL. So at this time, we will continue the same basal and bolus insulin regimen to allow for dose equilibration and keep her on Humalog given as 30 units subcu t.i.d. before meals as ordered. We will continue the basal insulin given as Levemir 70 units subcu at bedtime daily as given. We will titrate incrementally as indicated to optimize metabolic control. We will follow and advise accordingly. Yesika Vogel MD
[2018-04-09] MEDS: Insulin Detemir 100 Units/ml Inj SC SCH (22:36)
[2018-04-10] MEDS: Morphine 30 mg SR Tab PO SCH ×3 (04:44→20:30)
[2018-04-10] MEDS: Metoprolol Succinate 100 mg XL Tab PO SCH ×2 (08:44→21:29)
[2018-04-10] MEDS: Insulin Lispro (humaLOG) 100 Units/ml Inj SC SCH ×7 (08:45→22:58)
--- NOTE | 2018-04-10 09:36 | CP.PCM.PN ---
Subjective - Date & Time of Evaluation Date of Evaluation: 04/10/18 Time of Evaluation: 09:33 - Subjective Subjective: Pt's pain is slightly better. The hgb electrophoresis is not back yet, but I suspect that it may be the cause for the chronic anemia. If surgery needs to done in a couple of days will transfuse the pt. In the meanwhile continue the po iron once daily. Objective - Vital Signs/Intake and Output Vital Signs (last 24 hours): Temp Pulse Resp BP Pulse Ox 98 F 66 20 184/79 H 99 04/10/18 08:22 04/10/18 08:22 04/10/18 08:22 04/10/18 08:52 04/10/18 08:22 Intake and Output: 04/10/18 04/10/18 06:59 18:59 Intake Total 400 Balance 400 - Medications Medications: Current Medications Acetaminophen (Tylenol 325mg Tab) 650 mg PO Q4 PRN PRN Reason: Pain, Mild (1-3) Albuterol/Ipratropium (Duoneb 3 Mg/0.5 Mg (3 Ml) Ud) 3 ml INH RQ6 PRN PRN Reason: Shortness of Breath Alprazolam (Xanax) 0.25 mg PO BID PRN PRN Reason: Anxiety Stop: 04/12/18 19:25 Amlodipine Besylate (Norvasc) 10 mg PO DAILY [facility] Last Admin: 04/10/18 08:44 Dose: 10 mg Aspirin (Ecotrin) 81 mg PO DAILY [facility] Last Admin: 04/09/18 08:52 Dose: 81 mg Atorvastatin Calcium (Lipitor) 40 mg PO HS [facility] Last Admin: 04/09/18 22:34 Dose: 40 mg Clonidine HCl (Catapres) 0.2 mg PO BID [facility] Last Admin: 04/10/18 08:43 Dose: 0.2 mg Docusate Sodium (Colace) 100 mg PO DAILY PRN PRN Reason: Constipation Last Admin: 04/10/18 08:43 Dose: 100 mg Enalapril Maleate (Vasotec) 20 mg PO BID [facility] Last Admin: 04/10/18 08:44 Dose: 20 mg Ferrous Sulfate (Feosol) 325 mg PO TID [facility] Last Admin: 04/10/18 08:44 Dose: 325 mg Furosemide (Lasix) 40 mg IVP DAILY [facility] Last Admin: 04/10/18 08:52 Dose: 40 mg Heparin Sodium (Porcine) (Heparin) 5,000 units SC Q12 [facility] PRN Reason: Protocol Last Admin: 04/10/18 08:44 Dose: 5,000 units Hydromorphone HCl (Dilaudid) 1 mg IVP Q4 PRN PRN Reason: Pain, moderate (4-7) Last Admin: 04/10/18 08:02 Dose: 1 mg Vancomycin HCl 750 mg/ Sodium (Chloride) 250 mls @ 166.667 mls/hr IVPB DAILY [facility] PRN Reason: Protocol Last Admin: 04/10/18 08:56 Dose: 166.667 mls/hr Piperacillin Sod/Tazobactam (Sod 2.25 gm/ Sodium Chloride) 100 mls @ 100 mls/ hr IVPB Q8 [facility] PRN Reason: Protocol Last Admin: 04/10/18 08:43 Dose: 100 mls/hr Insulin Detemir (Levemir) 70 units SC HS [facility] Last Admin: 04/09/18 22:36 Dose: 70 units Insulin Human Lispro (Humalog) 0 units SC ACHS [facility] Last Admin: 04/09/18 22:34 Dose: Not Given Insulin Human Lispro (Humalog) 30 units SC AC [facility] Last Admin: 04/10/18 08:45 Dose: 30 u Isosorbide Mononitrate (Imdur) 60 mg PO DAILY [facility] Last Admin: 04/10/18 08:44 Dose: 60 mg Lactulose (Enulose) 10 gm PO DAILY PRN PRN Reason: Constipation Last Admin: 04/09/18 05:41 Dose: 10 gm Metoprolol Succinate (Toprol Xl) 200 mg PO Q12 [facility] Last Admin: 04/10/18 08:44 Dose: 200 mg Morphine Sulfate (Morphine Extended Release Tab) 30 mg PO Q8@0400,1200,2000 [facility] Last Admin: 04/10/18 04:44 Dose: 30 mg Ondansetron HCl (Zofran Inj) 4 mg IVP Q4 PRN PRN Reason: Nausea/Vomiting Oxycodone HCl (Oxycodone Immediate Release Tab) 30 mg PO Q6 PRN PRN Reason: Pain, moderate (4-7) Last Admin: 04/08/18 09:08 Dose: 30 mg Pantoprazole Sodium (Protonix Inj) 40 mg IVP DAILY [facility] Last Admin: 04/10/18 08:44 Dose: 40 mg - Labs Labs: 04/09/18 09:30 04/07/18 04:20 PT 12.1 Seconds (9.8-13.1) 04/02/18 19:00 INR 1.1 04/02/18 19:00 APTT 30.7 Seconds (25.6-37.1) 04/02/18 19:00
--- NOTE | 2018-04-10 11:12 | CP.PCM.PN ---
Subjective - Date & Time of Evaluation Date of Evaluation: 04/10/18 Time of Evaluation: 11:13 - Subjective Subjective: FEELS BETTER SCRATCHED R LEG WITH L FOOT PROSTHESES Objective - Vital Signs/Intake and Output Vital Signs (last 24 hours): Temp Pulse Resp BP Pulse Ox 98 F 66 20 184/79 H 99 04/10/18 08:22 04/10/18 08:22 04/10/18 08:22 04/10/18 08:52 04/10/18 08:22 Intake and Output: 04/10/18 04/10/18 06:59 18:59 Intake Total 400 Balance 400 - Medications Medications: Current Medications Acetaminophen (Tylenol 325mg Tab) 650 mg PO Q4 PRN PRN Reason: Pain, Mild (1-3) Albuterol/Ipratropium (Duoneb 3 Mg/0.5 Mg (3 Ml) Ud) 3 ml INH RQ6 PRN PRN Reason: Shortness of Breath Amlodipine Besylate (Norvasc) 10 mg PO DAILY [facility] Last Admin: 04/10/18 08:44 Dose: 10 mg Aspirin (Ecotrin) 81 mg PO DAILY [facility] Last Admin: 04/09/18 08:52 Dose: 81 mg Atorvastatin Calcium (Lipitor) 40 mg PO HS [facility] Last Admin: 04/09/18 22:34 Dose: 40 mg Clonidine HCl (Catapres) 0.2 mg PO BID [facility] Last Admin: 04/10/18 08:43 Dose: 0.2 mg Docusate Sodium (Colace) 100 mg PO DAILY PRN PRN Reason: Constipation Last Admin: 04/10/18 08:43 Dose: 100 mg Enalapril Maleate (Vasotec) 20 mg PO BID [facility] Last Admin: 04/10/18 08:44 Dose: 20 mg Ferrous Sulfate (Feosol) 325 mg PO TID [facility] Last Admin: 04/10/18 08:44 Dose: 325 mg Furosemide (Lasix) 40 mg IVP DAILY [facility] Last Admin: 04/10/18 08:52 Dose: 40 mg Heparin Sodium (Porcine) (Heparin) 5,000 units SC Q12 [facility] PRN Reason: Protocol Last Admin: 04/10/18 08:44 Dose: 5,000 units Hydromorphone HCl (Dilaudid) 1 mg IVP Q4 PRN PRN Reason: Pain, moderate (4-7) Last Admin: 04/10/18 08:02 Dose: 1 mg Vancomycin HCl 750 mg/ Sodium (Chloride) 250 mls @ 166.667 mls/hr IVPB DAILY [facility] PRN Reason: Protocol Last Admin: 04/10/18 08:56 Dose: 166.667 mls/hr Piperacillin Sod/Tazobactam (Sod 2.25 gm/ Sodium Chloride) 100 mls @ 100 mls/ hr IVPB Q8 [facility] PRN Reason: Protocol Last Admin: 04/10/18 08:43 Dose: 100 mls/hr Insulin Detemir (Levemir) 70 units SC HS [facility] Last Admin: 04/09/18 22:36 Dose: 70 units Insulin Human Lispro (Humalog) 0 units SC ACHS [facility] Last Admin: 04/09/18 22:34 Dose: Not Given Insulin Human Lispro (Humalog) 30 units SC AC [facility] Last Admin: 04/10/18 08:45 Dose: 30 u Isosorbide Mononitrate (Imdur) 60 mg PO DAILY [facility] Last Admin: 04/10/18 08:44 Dose: 60 mg Lactulose (Enulose) 10 gm PO DAILY PRN PRN Reason: Constipation Last Admin: 04/09/18 05:41 Dose: 10 gm Metoprolol Succinate (Toprol Xl) 200 mg PO Q12 [facility] Last Admin: 04/10/18 08:44 Dose: 200 mg Morphine Sulfate (Morphine Extended Release Tab) 30 mg PO Q8@0400,1200,2000 [facility] Last Admin: 04/10/18 04:44 Dose: 30 mg Ondansetron HCl (Zofran Inj) 4 mg IVP Q4 PRN PRN Reason: Nausea/Vomiting Oxycodone HCl (Oxycodone Immediate Release Tab) 30 mg PO Q6 PRN PRN Reason: Pain, moderate (4-7) Last Admin: 04/08/18 09:08 Dose: 30 mg Pantoprazole Sodium (Protonix Inj) 40 mg IVP DAILY [facility] Last Admin: 04/10/18 08:44 Dose: 40 mg - Labs Labs: 04/09/18 09:30 04/07/18 04:20 PT 12.1 Seconds (9.8-13.1) 04/02/18 19:00 INR 1.1 04/02/18 19:00 APTT 30.7 Seconds (25.6-37.1) 04/02/18 19:00 - Constitutional Appears: Chronically Ill - Head Exam Head Exam: ATRAUMATIC, NORMAL INSPECTION, NORMOCEPHALIC - Eye Exam Eye Exam: EOMI, Normal appearance, PERRL Pupil Exam: NORMAL ACCOMODATION, PERRL - ENT Exam ENT Exam: Mucous Membranes Moist, Normal Exam - Neck Exam Neck Exam: Full ROM, Normal Inspection. absent: Lymphadenopathy - Respiratory Exam Respiratory Exam: Clear to Ausculation Bilateral, NORMAL BREATHING PATTERN - Cardiovascular Exam Cardiovascular Exam: REGULAR RHYTHM, +S1, +S2. absent: Murmur - GI/Abdominal Exam GI & Abdominal Exam: Soft, Normal Bowel Sounds. absent: Tenderness - Rectal Exam Rectal Exam: NORMAL INSPECTION - Extremities Exam Extremities Exam: Full ROM, Normal Capillary Refill, Normal Inspection, Tenderness. absent: Joint Swelling, Pedal Edema Additional comments: S/P R TRANSMET AMPUTATION SCRATCH MO R LEG S/P L FOOT SURGERY WITH HARDWARE IN PLACE - Back Exam Back Exam: NORMAL INSPECTION - Neurological Exam Neurological Exam: Alert, Awake, CN II-XII Intact, Normal Gait, Oriented x3 - Psychiatric Exam Psychiatric exam: Normal Affect, Normal Mood - Skin Skin Exam: Dry, Intact, Normal Color, Warm Assessment and Plan - Assessment and Plan (Free Text) Assessment: S/P L FOOT SURGERY OSTEOMYELITIS OF L FOOT/ANKLE CHARCOTS L FOOT DM HTN CHF-RESOLVED ASHD ANEMIA PVD Plan: CONTINUE CURRENT RX PODIATRY CARE AWAITING PLACEMENT IN SUBACUTE CARE FOR IV ANTIBIOTIC RX AND PT
--- NOTE | 2018-04-10 14:49 | CP.PCM.PN ---
Subjective - Date & Time of Evaluation Date of Evaluation: 04/10/18 Time of Evaluation: 14:00 - Subjective Subjective: Podiatry progress note for attending Dr. 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 Family member at bedside during visitation. Patient is laying comfortably in bed, AAOx3 and in NAD. Patient reports the same pain to the posterior ankle and intermittent shooting pain. Patient reports pain is well controlled with medication. She is able to sleep without issues. Patient reports last night as she was going to the commode, right leg hit the external fixator causing an abrasion to the right leg. Patient denies any other pedal complaint at this time. She denies any overnight N/V/F/SOB/CP Objective - Vital Signs/Intake and Output Vital Signs (last 24 hours): Temp Pulse Resp BP Pulse Ox 98 F 66 20 184/79 H 99 04/10/18 08:22 04/10/18 08:22 04/10/18 08:22 04/10/18 08:52 04/10/18 08:22 Intake and Output: 04/10/18 04/10/18 06:59 18:59 Intake Total 400 Balance 400 - Medications Medications: Current Medications Acetaminophen (Tylenol 325mg Tab) 650 mg PO Q4 PRN PRN Reason: Pain, Mild (1-3) Albuterol/Ipratropium (Duoneb 3 Mg/0.5 Mg (3 Ml) Ud) 3 ml INH RQ6 PRN PRN Reason: Shortness of Breath Amlodipine Besylate (Norvasc) 10 mg PO DAILY [facility] Last Admin: 04/10/18 08:44 Dose: 10 mg Aspirin (Ecotrin) 81 mg PO DAILY [facility] Last Admin: 04/10/18 12:42 Dose: 81 mg Atorvastatin Calcium (Lipitor) 40 mg PO HS [facility] Last Admin: 04/09/18 22:34 Dose: 40 mg Clonidine HCl (Catapres) 0.2 mg PO BID [facility] Last Admin: 04/10/18 08:43 Dose: 0.2 mg Docusate Sodium (Colace) 100 mg PO DAILY PRN PRN Reason: Constipation Last Admin: 04/10/18 08:43 Dose: 100 mg Enalapril Maleate (Vasotec) 20 mg PO BID [facility] Last Admin: 04/10/18 08:44 Dose: 20 mg Ferrous Sulfate (Feosol) 325 mg PO TID [facility] Last Admin: 04/10/18 12:42 Dose: 325 mg Furosemide (Lasix) 40 mg IVP DAILY [facility] Last Admin: 04/10/18 08:52 Dose: 40 mg Hydromorphone HCl (Dilaudid) 1 mg IVP Q4 PRN PRN Reason: Pain, moderate (4-7) Last Admin: 04/10/18 13:24 Dose: 1 mg Vancomycin HCl 750 mg/ Sodium (Chloride) 250 mls @ 166.667 mls/hr IVPB DAILY [facility] PRN Reason: Protocol Last Admin: 04/10/18 08:56 Dose: 166.667 mls/hr Piperacillin Sod/Tazobactam (Sod 2.25 gm/ Sodium Chloride) 100 mls @ 100 mls/ hr IVPB Q8 [facility] PRN Reason: Protocol Last Admin: 04/10/18 08:43 Dose: 100 mls/hr Insulin Detemir (Levemir) 70 units SC HS [facility] Last Admin: 04/09/18 22:36 Dose: 70 units Insulin Human Lispro (Humalog) 0 units SC ACHS [facility] Last Admin: 04/10/18 12:42 Dose: Not Given Insulin Human Lispro (Humalog) 30 units SC AC [facility] Last Admin: 04/10/18 12:42 Dose: 30 u Isosorbide Mononitrate (Imdur) 60 mg PO DAILY [facility] Last Admin: 04/10/18 08:44 Dose: 60 mg Lactulose (Enulose) 10 gm PO DAILY PRN PRN Reason: Constipation Last Admin: 04/09/18 05:41 Dose: 10 gm Metoprolol Succinate (Toprol Xl) 200 mg PO Q12 [facility] Last Admin: 04/10/18 08:44 Dose: 200 mg Morphine Sulfate (Morphine Extended Release Tab) 30 mg PO Q8@0400,1200,2000 [facility] Last Admin: 04/10/18 12:41 Dose: 30 mg Ondansetron HCl (Zofran Inj) 4 mg IVP Q4 PRN PRN Reason: Nausea/Vomiting Oxycodone HCl (Oxycodone Immediate Release Tab) 30 mg PO Q6 PRN PRN Reason: Pain, moderate (4-7) Last Admin: 04/08/18 09:08 Dose: 30 mg Pantoprazole Sodium (Protonix Inj) 40 mg IVP DAILY [facility] Last Admin: 04/10/18 08:44 Dose: 40 mg - Labs Labs: 04/09/18 09:30 04/07/18 04:20 PT 12.1 Seconds (9.8-13.1) 04/02/18 19:00 INR 1.1 04/02/18 19:00 APTT 30.7 Seconds (25.6-37.1) 04/02/18 19:00 - Constitutional Appears: Well, Non-toxic, No Acute Distress - Extremities Exam Extremities Exam: absent: Calf Tenderness Additional comments: Vasc: DP/PT pulses palpable 1/4 on the right. Unable to assess DP/PT to left secondary to obstruction from external fixation device, cap refill on left foot <3 to all digits, refill time to distal right foot WNL, mild edema present about the surgery sites with pin placement. Neuro: protective sensation absent bilaterally, gross protective sensation intact bilaterally Derm: dressing clean and dry without strikethrough, no drainage, suture sites with skin well reapproximated and coapted with no signs of dehiscence noted, no malodor or pus, pin sites are clean with minimal sanguineous drainage, no erythema, no streaking, no fluctanance, no clinical signs of infection bilaterally Right: Ulceration measuring approximately 0.5cm x 0.6cm x 0.2cm noted to plantar midfoot on the right. Wound margins are hyperkeratotic, base is granular 100%. No malodor, No drainage. no tracking, undermining or probing to bone, no purulence, no fluctuance or abscess noted. Medial aspect of lower 1/3 with small superfical abrasion secondary to patient hitting right leg on left lower extremity external fixator. 100% granular base with no clinical signs of infection MSK: pain on palpation about the left lower leg and surgery sites; external fixation limits any motion at the left lower extremity. No pain on palpating the right foot ulcer. - Neurological Exam Neurological Exam: absent: Alert, Awake - Psychiatric Exam Psychiatric exam: absent: Normal Affect, Normal Mood Assessment and Plan - Assessment and Plan (Free Text) Assessment: 52F 13 days s/p left foot charcot neuroarthropathy reconstruction using external fixation device- stable Plan: Patient seen and evaluated at the bedside Discussed in detail with Dr. Macdonald Charts and labs reviewed: afebrile and absent leukocytosis Dressing keep clean, dry, and intact H/H- management per medicine Changed left lower extremity dressing. Cleansed entire site and external fixation with saline solution, pat dry, applied xerpform to skin lesions with pin site, dsd, clings, and HELGA Right plantar ulceration and right medial superficial abrasion cleansed with saline solution, dressed with xeroform and DSD X-rays left foot (04/07/18) -stable postoperative findings Discussed future plan with medicine- patient will be transferred to [facility] once stable Patient second Podiatric surgery postponed until patient stable Continue IV Antibiotics Podiatry will continue to follow up patient while in house
[2018-04-10] MEDS: oxyCODONE 10 mg Immediate Release Tab PO PRN (16:27)
[2018-04-10] MEDS: Insulin Detemir 100 Units/ml Inj SC SCH (22:58)
[2018-04-11] MEDS: Morphine 30 mg SR Tab PO SCH ×4 (04:31→20:30)
[2018-04-11 04:50] LABS: HEMOGLOBIN A 96.6 Percent (>96.0); HEMOGLOBIN A2 2.4 Percent (1.8-3.5)
[2018-04-11 06:16] LABS: BASO % 0.6 % (0.0-2.0); EOS # 0.2 K/uL (0.0-0.7); EOS % 2.8 % (0.0-4.0); HEMOGLOBIN 7.8 g/dL (12.0-16.0); LYMPH # 1.2 K/uL (1.0-4.3); LYMPH % 19.7 % (20.0-40.0); MEAN CELL VOLUME 83.3 fl (81.0-99.0); MEAN CORPUSCULAR HEMOGLOBIN 27.8 pg (27.0-31.0); MEAN CORPUSCULAR HGB CONC 33.4 g/dL (33.0-37.0); MEAN PLATELET VOLUME 7.9 fl (7.2-11.7); MONO # 0.5 K/uL (0.0-0.8); MONO % 7.9 % (0.0-10.0); NEUT # 4.1 K/uL (1.8-7.0); RBC 2.82 Mil/uL (3.80-5.20); RED CELL DISTRIBUTION WIDTH 17.1 % (11.5-14.5); WHITE BLOOD COUNT 5.9 K/uL (4.8-10.8)
[2018-04-11 06:46] LABS: ALB/GLOB RATIO 0.9 (1.0-2.1); ALBUMIN 3.2 g/dL (3.5-5.0); CALCIUM 8.8 mg/dL (8.4-10.2)
--- NOTE | 2018-04-11 08:40 | PN ---
DATE: 04/10/2018 ENDO FOLLOWUP NOTE LOCATION: In room 660. SUBJECTIVE: This is a 52-year-old female with recent uncontrolled type 2 insulin-requiring diabetes, now being followed closely for metabolic management. Her glycemic levels are fluctuating, but much improved as noted overnight with glucose levels ranging from 101 to 189 and 230 mg/dL. LABORATORY DATA: Her latest chemistry showed a BUN of 49, sodium 141, potassium 4.9, chloride 105, CO2 of 31, glucose 158, and creatinine 1.6. ASSESSMENT AND PLAN: So at this time, we will continue the same basal and bolus insulin regimen to allow for dose equilibration and keep her on the Humalog given as 30 units subcutaneously t.i.d. before meals as given. We will continue also the Levemir given as 70 units subcutaneously at bedtime daily as given. We will titrate incrementally as indicated to optimize metabolic control. We will obtain serial chemistries and supplement accordingly as needed. We will follow. Yesika Vogel MD
--- NOTE | 2018-04-11 08:45 | PN ---
DATE: 04/08/2018 LOCATION: In room 660. SUBJECTIVE: This is a 52-year-old female with recent uncontrolled type 2 insulin-requiring diabetes with extremes of glycemic fluctuations because of the variability of her oral intake and is now being followed closely for metabolic management. Her glycemic levels today have ranged from 63-173 and 279 mg/dL. LABORATORY DATA: Her latest chemistries showed a BUN of 49, sodium 141, potassium 4.9, chloride 105, CO2 of 31, glucose 158 and creatinine 1.6. ASSESSMENT AND PLAN: So at this time, we will continue the same basal and bolus insulin regimen to allow for dose equilibration and keep her on the Levemir given as 70 units subcu at bedtime daily and Humalog given as 30 units subcu t.i.d. before meals as ordered. We will titrate incremental as indicated to optimize metabolic control. We will obtain serial chemistries and supplement accordingly as needed. We will follow. Yesika Vogel MD
[2018-04-11] MEDS: Lactulose 10 gm/15 ml Syrup PO PRN (09:27)
[2018-04-11] MEDS: Insulin Lispro (humaLOG) 100 Units/ml Inj SC SCH ×7 (09:29→22:30)
[2018-04-11] MEDS: Metoprolol Succinate 100 mg XL Tab PO SCH ×2 (09:31→21:44)
--- NOTE | 2018-04-11 09:47 | CP.PCM.PN ---
Subjective - Date & Time of Evaluation Date of Evaluation: 04/11/18 Time of Evaluation: 09:47 - Subjective Subjective: NO COMPLAINTS Objective - Vital Signs/Intake and Output Vital Signs (last 24 hours): Temp Pulse Resp BP Pulse Ox 98.1 F 75 18 164/75 H 100 04/11/18 01:00 04/11/18 09:31 04/11/18 01:00 04/11/18 09:31 04/11/18 01:00 - Medications Medications: Current Medications Acetaminophen (Tylenol 325mg Tab) 650 mg PO Q4 PRN PRN Reason: Pain, Mild (1-3) Albuterol/Ipratropium (Duoneb 3 Mg/0.5 Mg (3 Ml) Ud) 3 ml INH RQ6 PRN PRN Reason: Shortness of Breath Amlodipine Besylate (Norvasc) 10 mg PO DAILY [facility] Last Admin: 04/11/18 09:30 Dose: 10 mg Aspirin (Ecotrin) 81 mg PO DAILY [facility] Last Admin: 04/11/18 09:28 Dose: 81 mg Atorvastatin Calcium (Lipitor) 40 mg PO [facility] Last Admin: 04/10/18 21:30 Dose: 40 mg Clonidine HCl (Catapres) 0.2 mg PO BID [facility] Last Admin: 04/11/18 09:28 Dose: 0.2 mg Docusate Sodium (Colace) 100 mg PO DAILY PRN PRN Reason: Constipation Last Admin: 04/10/18 08:43 Dose: 100 mg Enalapril Maleate (Vasotec) 20 mg PO BID [facility] Last Admin: 04/11/18 09:28 Dose: 20 mg Ferrous Sulfate (Feosol) 325 mg PO TID [facility] Last Admin: 04/11/18 09:28 Dose: 325 mg Furosemide (Lasix) 40 mg IVP DAILY [facility] Last Admin: 04/10/18 08:52 Dose: 40 mg Hydromorphone HCl (Dilaudid) 1 mg IVP Q4 PRN PRN Reason: Pain, moderate (4-7) Last Admin: 04/11/18 09:21 Dose: 1 mg Vancomycin HCl 750 mg/ Sodium (Chloride) 250 mls @ 166.667 mls/hr IVPB DAILY [facility] PRN Reason: Protocol Last Admin: 04/11/18 09:32 Dose: 166.667 mls/hr Piperacillin Sod/Tazobactam (Sod 2.25 gm/ Sodium Chloride) 100 mls @ 100 mls/ hr IVPB Q8 [facility] PRN Reason: Protocol Last Admin: 04/11/18 09:32 Dose: 100 mls/hr Insulin Detemir (Levemir) 70 units SC HS [facility] Last Admin: 04/10/18 22:58 Dose: 70 units Insulin Human Lispro (Humalog) 0 units SC ACHS [facility] Last Admin: 04/11/18 09:29 Dose: Not Given Insulin Human Lispro (Humalog) 30 units SC AC [facility] Last Admin: 04/11/18 09:30 Dose: 30 u Isosorbide Mononitrate (Imdur) 60 mg PO DAILY [facility] Last Admin: 04/11/18 09:28 Dose: 60 mg Lactulose (Enulose) 10 gm PO DAILY PRN PRN Reason: Constipation Last Admin: 04/11/18 09:27 Dose: 10 gm Metoprolol Succinate (Toprol Xl) 200 mg PO Q12 [facility] Last Admin: 04/11/18 09:31 Dose: 200 mg Morphine Sulfate (Morphine Extended Release Tab) 30 mg PO Q8@0400,1200,2000 [facility] Last Admin: 04/11/18 04:34 Dose: 30 mg Ondansetron HCl (Zofran Inj) 4 mg IVP Q4 PRN PRN Reason: Nausea/Vomiting Oxycodone HCl (Oxycodone Immediate Release Tab) 30 mg PO Q6 PRN PRN Reason: Pain, moderate (4-7) Last Admin: 04/10/18 16:27 Dose: 30 mg Pantoprazole Sodium (Protonix Inj) 40 mg IVP DAILY [facility] Last Admin: 04/11/18 09:25 Dose: 40 mg - Labs Labs: 04/11/18 05:50 04/11/18 05:50 PT 12.1 Seconds (9.8-13.1) 04/02/18 19:00 INR 1.1 04/02/18 19:00 APTT 30.7 Seconds (25.6-37.1) 04/02/18 19:00 - Constitutional Appears: Well - Head Exam Head Exam: ATRAUMATIC, NORMAL INSPECTION, NORMOCEPHALIC - Eye Exam Eye Exam: EOMI, Normal appearance, PERRL Pupil Exam: NORMAL ACCOMODATION, PERRL - ENT Exam ENT Exam: Mucous Membranes Moist, Normal Exam - Neck Exam Neck Exam: Full ROM, Normal Inspection. absent: Lymphadenopathy - Respiratory Exam Respiratory Exam: Clear to Ausculation Bilateral, NORMAL BREATHING PATTERN - Cardiovascular Exam Cardiovascular Exam: REGULAR RHYTHM, +S1, +S2. absent: Murmur - GI/Abdominal Exam GI & Abdominal Exam: Soft, Normal Bowel Sounds. absent: Tenderness - Rectal Exam Rectal Exam: NORMAL INSPECTION - Extremities Exam Extremities Exam: Full ROM, Normal Capillary Refill, Normal Inspection, Tenderness. absent: Joint Swelling, Pedal Edema Additional comments: CELLULITIS AND SURGICAL HARDWARE L FOOT R FOOT-SUPERFICIAL TEAR - Back Exam Back Exam: NORMAL INSPECTION - Neurological Exam Neurological Exam: Alert, Awake, CN II-XII Intact, Normal Gait, Oriented x3 - Psychiatric Exam Psychiatric exam: Normal Affect, Normal Mood - Skin Skin Exam: Dry, Intact, Normal Color, Warm Assessment and Plan - Assessment and Plan (Free Text) Assessment: OSTEOMYELITIS OF L FOOT/ANKLE ANEMIA DM PVD HTN CHF-STABLE Plan: TRANSFUSE PRBCS AWAITING SUBACUTE CARE PLACEMENT
--- NOTE | 2018-04-11 11:58 | CP.PCM.PN ---
Subjective - Date & Time of Evaluation Date of Evaluation: 04/11/18 Time of Evaluation: 11:58 - Subjective Subjective: ID Note- Pt. seen and examined today. denies any fever or chills. denies any nausea or any diarrhea. she states she is getting 2 more PRBC transfusions today and is being seen by heme. denies any sob. Objective - Vital Signs/Intake and Output Vital Signs (last 24 hours): Temp Pulse Resp BP Pulse Ox 98.1 F 75 18 164/75 H 100 04/11/18 01:00 04/11/18 09:31 04/11/18 01:00 04/11/18 10:14 04/11/18 01:00 - Medications Medications: Current Medications Acetaminophen (Tylenol 325mg Tab) 650 mg PO Q4 PRN PRN Reason: Pain, Mild (1-3) Albuterol/Ipratropium (Duoneb 3 Mg/0.5 Mg (3 Ml) Ud) 3 ml INH RQ6 PRN PRN Reason: Shortness of Breath Amlodipine Besylate (Norvasc) 10 mg PO DAILY [facility] Last Admin: 04/11/18 09:30 Dose: 10 mg Aspirin (Ecotrin) 81 mg PO DAILY [facility] Last Admin: 04/11/18 09:28 Dose: 81 mg Atorvastatin Calcium (Lipitor) 40 mg PO HS [facility] Last Admin: 04/10/18 21:30 Dose: 40 mg Clonidine HCl (Catapres) 0.2 mg PO BID [facility] Last Admin: 04/11/18 09:28 Dose: 0.2 mg Docusate Sodium (Colace) 100 mg PO DAILY PRN PRN Reason: Constipation Last Admin: 04/10/18 08:43 Dose: 100 mg Enalapril Maleate (Vasotec) 20 mg PO BID [facility] Last Admin: 04/11/18 09:28 Dose: 20 mg Ferrous Sulfate (Feosol) 325 mg PO TID [facility] Last Admin: 04/11/18 09:28 Dose: 325 mg Furosemide (Lasix) 40 mg IVP DAILY [facility] Last Admin: 04/11/18 10:14 Dose: 40 mg Hydromorphone HCl (Dilaudid) 1 mg IVP Q4 PRN PRN Reason: Pain, moderate (4-7) Last Admin: 04/11/18 09:21 Dose: 1 mg Vancomycin HCl 750 mg/ Sodium (Chloride) 250 mls @ 166.667 mls/hr IVPB DAILY [facility] PRN Reason: Protocol Last Admin: 04/11/18 09:32 Dose: 166.667 mls/hr Piperacillin Sod/Tazobactam (Sod 2.25 gm/ Sodium Chloride) 100 mls @ 100 mls/ hr IVPB Q8 [facility] PRN Reason: Protocol Last Admin: 04/11/18 09:32 Dose: 100 mls/hr Insulin Detemir (Levemir) 70 units SC HS [facility] Last Admin: 04/10/18 22:58 Dose: 70 units Insulin Human Lispro (Humalog) 0 units SC ACHS [facility] Last Admin: 04/11/18 09:29 Dose: Not Given Insulin Human Lispro (Humalog) 30 units SC AC [facility] Last Admin: 04/11/18 09:30 Dose: 30 u Isosorbide Mononitrate (Imdur) 60 mg PO DAILY [facility] Last Admin: 04/11/18 09:28 Dose: 60 mg Lactulose (Enulose) 10 gm PO DAILY PRN PRN Reason: Constipation Last Admin: 04/11/18 09:27 Dose: 10 gm Metoprolol Succinate (Toprol Xl) 200 mg PO Q12 [facility] Last Admin: 04/11/18 09:31 Dose: 200 mg Morphine Sulfate (Morphine Extended Release Tab) 30 mg PO Q8@0400,1200,2000 [facility] Last Admin: 04/11/18 04:34 Dose: 30 mg Ondansetron HCl (Zofran Inj) 4 mg IVP Q4 PRN PRN Reason: Nausea/Vomiting Oxycodone HCl (Oxycodone Immediate Release Tab) 30 mg PO Q6 PRN PRN Reason: Pain, moderate (4-7) Last Admin: 04/10/18 16:27 Dose: 30 mg Pantoprazole Sodium (Protonix Inj) 40 mg IVP DAILY [facility] Last Admin: 04/11/18 09:25 Dose: 40 mg - Labs Labs: - Additional Findings Additional findings: - Constitutional Appears: No Acute Distress - Head Exam Head Exam: ATRAUMATIC - Eye Exam Eye Exam: EOMI - ENT Exam ENT Exam: Normal Oropharynx - Neck Exam Neck exam: Positive for: Full Rom - Respiratory Exam Additional comments: good breath sounds heard b/l no wheezing - Cardiovascular Exam Cardiovascular Exam: RRR, +S1, +S2 - GI/Abdominal Exam GI & Abdominal Exam: Normal Bowel Sounds, Soft Additional comments: NT, ND - Extremities Exam Additional comments: right foot TMA (old) left foot in post surgical dressing and external fixation in place - Neurological Exam Neurological exam: Alert, Oriented x 3 Laboratory Results - last 72 hr 04/07/18 04/08/18 04/08/18 11:06 15:34 18:08 WBC RBC Hgb Hct MCV MCH MCHC RDW Plt Count MPV Neut % (Auto) Lymph % (Auto) Cowley % (Auto) Eos % (Auto) Baso % (Auto) Neut # (Auto) Lymph # (Auto) Cowley # (Auto) Eos # (Auto) Baso # (Auto) Hemoglobin A 96.6 Hemoglobin A2 2.4 Hemoglobin C 0.0 Hemoglobin F () <1.0 Hemoglobin S 0.0 Variant Hemoglobin 0.0 Hemoglobinopathy Interp See note Sodium Potassium Chloride Carbon Dioxide Anion Gap BUN Creatinine Est GFR ( Amer) Est GFR (Non-Af Amer) POC Glucose (mg/dL) 63 L 173 H Random Glucose Calcium Magnesium Total Bilirubin AST ALT Alkaline Phosphatase Total Protein Albumin Globulin Albumin/Globulin Ratio Vancomycin Trough Blood Type Antibody Screen Crossmatch BBK History Checked 04/08/18 04/09/18 04/09/18 21:25 05:35 08:00 WBC RBC Hgb Hct MCV MCH MCHC RDW Plt Count MPV Neut % (Auto) Lymph % (Auto) Cowley % (Auto) Eos % (Auto) Baso % (Auto) Neut # (Auto) Lymph # (Auto) Cowley # (Auto) Eos # (Auto) Baso # (Auto) Hemoglobin A Hemoglobin A2 Hemoglobin C Hemoglobin F () Hemoglobin S Variant Hemoglobin Hemoglobinopathy Interp Sodium Potassium Chloride Carbon Dioxide Anion Gap BUN Creatinine Est GFR ( Amer) Est GFR (Non-Af Amer) POC Glucose (mg/dL) 279 H 241 H Random Glucose Calcium Magnesium Total Bilirubin AST ALT Alkaline Phosphatase Total Protein Albumin Globulin Albumin/Globulin Ratio Vancomycin Trough 6.5 Blood Type Antibody Screen Crossmatch BBK History Checked 04/09/18 04/09/18 04/09/18 09:30 11:43 16:46 WBC 6.3 RBC 3.02 L Hgb 8.3 L Hct 25.2 L MCV 83.4 MCH 27.5 MCHC 33.0 RDW 17.3 H Plt Count 296 MPV Neut % (Auto) Lymph % (Auto) Cowley % (Auto) Eos % (Auto) Baso % (Auto) Neut # (Auto) Lymph # (Auto) Cowley # (Auto) Eos # (Auto) Baso # (Auto) Hemoglobin A Hemoglobin A2 Hemoglobin C Hemoglobin F () Hemoglobin S Variant Hemoglobin Hemoglobinopathy Interp Sodium Potassium Chloride Carbon Dioxide Anion Gap BUN Creatinine Est GFR ( Amer) Est GFR (Non-Af Amer) POC Glucose (mg/dL) 217 H 101 Random Glucose Calcium Magnesium Total Bilirubin AST ALT Alkaline Phosphatase Total Protein Albumin Globulin Albumin/Globulin Ratio Vancomycin Trough Blood Type Antibody Screen Crossmatch BBK History Checked 04/09/18 04/10/18 04/10/18 21:50 06:03 11:05 WBC RBC Hgb Hct MCV MCH MCHC RDW Plt Count MPV Neut % (Auto) Lymph % (Auto) Cowley % (Auto) Eos % (Auto) Baso % (Auto) Neut # (Auto) Lymph # (Auto) Cowley # (Auto) Eos # (Auto) Baso # (Auto) Hemoglobin A Hemoglobin A2 Hemoglobin C Hemoglobin F () Hemoglobin S Variant Hemoglobin Hemoglobinopathy Interp Sodium Potassium Chloride Carbon Dioxide Anion Gap BUN Creatinine Est GFR ( Amer) Est GFR (Non-Af Amer) POC Glucose (mg/dL) 189 H 230 H 202 H Random Glucose Calcium Magnesium Total Bilirubin AST ALT Alkaline Phosphatase Total Protein Albumin Globulin Albumin/Globulin Ratio Vancomycin Trough Blood Type Antibody Screen Crossmatch BBK History Checked 04/10/18 04/10/18 04/11/18 16:31 22:43 05:50 WBC 5.9 RBC 2.82 L Hgb 7.8 L Hct 23.5 L MCV 83.3 MCH 27.8 MCHC 33.4 RDW 17.1 H Plt Count 274 MPV 7.9 Neut % (Auto) 69.0 Lymph % (Auto) 19.7 L Cowley % (Auto) 7.9 Eos % (Auto) 2.8 Baso % (Auto) 0.6 Neut # (Auto) 4.1 Lymph # (Auto) 1.2 Cowley # (Auto) 0.5 Eos # (Auto) 0.2 Baso # (Auto) 0.0 Hemoglobin A Hemoglobin A2 Hemoglobin C Hemoglobin F () Hemoglobin S Variant Hemoglobin Hemoglobinopathy Interp Sodium Potassium Chloride Carbon Dioxide Anion Gap BUN Creatinine Est GFR ( Amer) Est GFR (Non-Af Amer) POC Glucose (mg/dL) 69 230 H Random Glucose Calcium Magnesium Total Bilirubin AST ALT Alkaline Phosphatase Total Protein Albumin Globulin Albumin/Globulin Ratio Vancomycin Trough Blood Type Antibody Screen Crossmatch BBK History Checked 04/11/18 04/11/18 04/11/18 05:50 06:06 11:32 WBC RBC Hgb Hct MCV MCH MCHC RDW Plt Count MPV Neut % (Auto) Lymph % (Auto) Cowley % (Auto) Eos % (Auto) Baso % (Auto) Neut # (Auto) Lymph # (Auto) Cowley # (Auto) Eos # (Auto) Baso # (Auto) Hemoglobin A Hemoglobin A2 Hemoglobin C Hemoglobin F () Hemoglobin S Variant Hemoglobin Hemoglobinopathy Interp Sodium 141 Potassium 4.1 Chloride 104 Carbon Dioxide 31 H Anion Gap 10 BUN 37 H Creatinine 1.4 H Est GFR ( Amer) 48 Est GFR (Non-Af Amer) 39 POC Glucose (mg/dL) 226 H 187 H Random Glucose 232 H Calcium 8.8 Magnesium 1.8 Total Bilirubin 0.4 AST 13 L D ALT 11 Alkaline Phosphatase 97 Total Protein 6.7 Albumin 3.2 L Globulin 3.5 Albumin/Globulin Ratio 0.9 L Vancomycin Trough Blood Type Antibody Screen Crossmatch BBK History Checked 04/11/18 11:35 WBC RBC Hgb Hct MCV MCH MCHC RDW Plt Count MPV Neut % (Auto) Lymph % (Auto) Cowley % (Auto) Eos % (Auto) Baso % (Auto) Neut # (Auto) Lymph # (Auto) Cowley # (Auto) Eos # (Auto) Baso # (Auto) Hemoglobin A Hemoglobin A2 Hemoglobin C Hemoglobin F () Hemoglobin S Variant Hemoglobin Hemoglobinopathy Interp Sodium Potassium Chloride Carbon Dioxide Anion Gap BUN Creatinine Est GFR ( Amer) Est GFR (Non-Af Amer) POC Glucose (mg/dL) Random Glucose Calcium Magnesium Total Bilirubin AST ALT Alkaline Phosphatase Total Protein Albumin Globulin Albumin/Globulin Ratio Vancomycin Trough Blood Type B POSITIVE Antibody Screen Negative Crossmatch See Detail BBK History Checked Patient has bt Microbiology 04/07/18 14:32 Nose MRSA Culture (Admit) - Final MRSA NOT DETECTED 04/05/18 15:00 Naris MRSA Culture (Admit) - Final MRSA NOT DETECTED 03/31/18 17:36 Naris MRSA Culture (Admit) - Final MRSA NOT DETECTED 03/28/18 05:00 Nose MRSA Culture (Admit) - Final MRSA NOT DETECTED Assessment and Plan (1) Acute pulmonary edema Status: Acute (2) Diabetes mellitus with hyperglycemia Status: Chronic (3) Charcot's joint arthropathy in type 2 diabetes mellitus Status: Acute (4) Diabetic foot ulcer Status: Acute - Assessment and Plan (Free Text) Assessment: A/P- 52 year old female with CAD, HTN, DM II was originally admitted with left plantar foot open wound and surrounding erythema . s/p left charcot foot surgery with external fixation POD #9. anemic getting PRBC afebrile leukocytosis has resolved. blood cx- neg x 2 foot wound cx- corynebacterium Initial CT report- ? acute or chronic Om as per report High ESR as per podiatry ,no Om of the left plantar foot. as per podiatry they will plan on outpatient wound treatment . plan- advise to continue with renal dose zosyn. day #24 completed 9 days of Iv daptomycin , switched to IV vancomycin 12 days ago ( renal Dose). keep vanco trough <15. advise at least another week of empiric IV abx till second part of the charcot surgery is done since pt. has external hardware in place and would like to minimize the chance of infection there. all above d/w patient and she verbalizes full understanding of all above.
[2018-04-11] MEDS: oxyCODONE 10 mg Immediate Release Tab PO PRN (17:21)
--- NOTE | 2018-04-11 19:46 | PN ---
DATE: 04/11/2018 ENDO FOLLOWUP NOTE LOCATION: In room 660. SUBJECTIVE: This is a 52-year-old female with recent uncontrolled type 2 insulin-requiring diabetes, now being followed closely for metabolic management. Her glycemic levels are fluctuating, but much improved at this time and the glucose levels overnight have ranged from 187 to 226 mg/dL. LABORATORY DATA: Her latest chemistry showed a BUN of 37, sodium 141, potassium 4.1, chloride 104, CO2 of 31, glucose 232, and creatinine 1.4. ASSESSMENT AND PLAN: So at this time, we will continue the same basal and bolus insulin regimen as given with Humalog given as 30 units subcutaneously t.i.d. before meals to start today as ordered. We will continue her basal insulin given as Levemir at 70 units subcutaneously at bedtime daily as given. We will titrate incrementally as indicated to optimize metabolic control. We will follow and advise accordingly. Yesika Vogel MD
[2018-04-11] MEDS: Insulin Detemir 100 Units/ml Inj SC SCH (22:30)
[2018-04-12] MEDS: oxyCODONE 10 mg Immediate Release Tab PO PRN (06:15)
[2018-04-12 06:21] LABS: HEMOGLOBIN 10.6 g/dL (12.0-16.0); MEAN CORPUSCULAR HEMOGLOBIN 28.1 pg (27.0-31.0); MEAN CORPUSCULAR HGB CONC 33.4 g/dL (33.0-37.0); RBC 3.78 Mil/uL (3.80-5.20); RED CELL DISTRIBUTION WIDTH 17.5 % (11.5-14.5); WHITE BLOOD COUNT 7.3 K/uL (4.8-10.8)
[2018-04-12 06:37] LABS: ALBUMIN 3.8 g/dL (3.5-5.0); CALCIUM 9.5 mg/dL (8.4-10.2)
[2018-04-12] MEDS: Insulin Lispro (humaLOG) 100 Units/ml Inj SC SCH ×7 (08:25→22:19)
[2018-04-12] MEDS: Metoprolol Succinate 100 mg XL Tab PO SCH ×2 (08:30→21:05)
--- NOTE | 2018-04-12 08:33 | CP.PCM.PN ---
Subjective - Date & Time of Evaluation Date of Evaluation: 04/12/18 Time of Evaluation: 08:31 - Subjective Subjective: Pt has been very uncomfortable, she has shortness of breath and some chest pain. Her hgb is 10.2gms after the transfusion. Will do a ct scan to r/o PE. Objective - Vital Signs/Intake and Output Vital Signs (last 24 hours): Temp Pulse Resp BP Pulse Ox 98.0 F 88 19 188/92 H 97 04/12/18 08:28 04/12/18 08:28 04/12/18 08:28 04/12/18 08:28 04/12/18 08:28 Intake and Output: 04/12/18 04/12/18 06:59 18:59 Intake Total 350 Balance 350 - Medications Medications: Current Medications Acetaminophen (Tylenol 325mg Tab) 650 mg PO Q4 PRN PRN Reason: Pain, Mild (1-3) Albuterol/Ipratropium (Duoneb 3 Mg/0.5 Mg (3 Ml) Ud) 3 ml INH RQ6 PRN PRN Reason: Shortness of Breath Last Admin: 04/12/18 08:29 Dose: 3 ml Amlodipine Besylate (Norvasc) 10 mg PO DAILY [facility] Last Admin: 04/11/18 09:30 Dose: 10 mg Aspirin (Ecotrin) 81 mg PO DAILY [facility] Last Admin: 04/11/18 09:28 Dose: 81 mg Atorvastatin Calcium (Lipitor) 40 mg PO HS [facility] Last Admin: 04/11/18 22:23 Dose: 40 mg Clonidine HCl (Catapres) 0.2 mg PO BID [facility] Last Admin: 04/11/18 17:17 Dose: 0.2 mg Docusate Sodium (Colace) 100 mg PO DAILY PRN PRN Reason: Constipation Last Admin: 04/10/18 08:43 Dose: 100 mg Enalapril Maleate (Vasotec) 20 mg PO BID [facility] Last Admin: 04/11/18 17:17 Dose: 20 mg Ferrous Sulfate (Feosol) 325 mg PO TID [facility] Last Admin: 04/11/18 17:17 Dose: 325 mg Furosemide (Lasix) 40 mg IVP DAILY [facility] Last Admin: 04/11/18 10:14 Dose: 40 mg Hydromorphone HCl (Dilaudid) 1 mg IVP Q4 PRN PRN Reason: Pain, moderate (4-7) Last Admin: 04/12/18 08:06 Dose: 1 mg Vancomycin HCl 750 mg/ Sodium (Chloride) 250 mls @ 166.667 mls/hr IVPB DAILY [facility]; Protocol Last Admin: 04/11/18 09:32 Dose: 166.667 mls/hr Piperacillin Sod/Tazobactam (Sod 2.25 gm/ Sodium Chloride) 100 mls @ 100 mls/hr IVPB Q8 [facility]; Protocol Last Admin: 04/12/18 00:31 Dose: 100 mls/hr Insulin Detemir (Levemir) 70 units SC HS [facility] Last Admin: 04/11/18 22:30 Dose: Not Given Insulin Human Lispro (Humalog) 0 units SC ACHS [facility] Last Admin: 04/11/18 22:30 Dose: Not Given Insulin Human Lispro (Humalog) 30 units SC AC [facility] Last Admin: 04/11/18 17:18 Dose: 30 u Isosorbide Mononitrate (Imdur) 60 mg PO DAILY [facility] Last Admin: 04/11/18 09:28 Dose: 60 mg Lactulose (Enulose) 10 gm PO DAILY PRN PRN Reason: Constipation Last Admin: 04/11/18 09:27 Dose: 10 gm Metoprolol Succinate (Toprol Xl) 200 mg PO Q12 [facility] Last Admin: 04/11/18 21:44 Dose: 200 mg Morphine Sulfate (Morphine Extended Release Tab) 30 mg PO Q8@0400,1200,2000 [facility] Last Admin: 04/11/18 20:30 Dose: Not Given Ondansetron HCl (Zofran Inj) 4 mg IVP Q4 PRN PRN Reason: Nausea/Vomiting Oxycodone HCl (Oxycodone Immediate Release Tab) 30 mg PO Q6 PRN PRN Reason: Pain, moderate (4-7) Last Admin: 04/12/18 06:15 Dose: 30 mg Pantoprazole Sodium (Protonix Inj) 40 mg IVP DAILY [facility] Last Admin: 04/11/18 09:25 Dose: 40 mg - Labs Labs: 04/12/18 05:45 04/12/18 05:45 PT 12.1 Seconds (9.8-13.1) 04/02/18 19:00 INR 1.1 04/02/18 19:00 APTT 30.7 Seconds (25.6-37.1) 04/02/18 19:00
--- NOTE | 2018-04-12 14:39 | CP.PCM.PN ---
Subjective - Date & Time of Evaluation Date of Evaluation: 04/12/18 Time of Evaluation: 14:36 - Subjective Subjective: Podiatry progress note for attending Dr. 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 Patient is laying comfortably in bed, AAOx3 and in NAD. Patient reports the same pain to the posterior ankle and intermittent shooting pain. Patient reports pain is well controlled with medication. Patient denies any other pedal complaint at this time. She denies any overnight N/V/F/SOB/CP Objective - Vital Signs/Intake and Output Vital Signs (last 24 hours): Temp Pulse Resp BP Pulse Ox 98.0 F 88 19 188/92 H 97 04/12/18 08:28 04/12/18 08:30 04/12/18 08:28 04/12/18 08:32 04/12/18 08:28 Intake and Output: 04/12/18 04/12/18 06:59 18:59 Intake Total 350 Balance 350 - Medications Medications: Current Medications Acetaminophen (Tylenol 325mg Tab) 650 mg PO Q4 PRN PRN Reason: Pain, Mild (1-3) Albuterol/Ipratropium (Duoneb 3 Mg/0.5 Mg (3 Ml) Ud) 3 ml INH RQ6 PRN PRN Reason: Shortness of Breath Last Admin: 04/12/18 08:29 Dose: 3 ml Alprazolam (Xanax) 0.25 mg PO BID PRN PRN Reason: Anxiety Stop: 04/19/18 17:01 Amlodipine Besylate (Norvasc) 10 mg PO DAILY [facility] Last Admin: 04/12/18 08:29 Dose: 10 mg Aspirin (Ecotrin) 81 mg PO DAILY [facility] Last Admin: 04/12/18 08:30 Dose: 81 mg Atorvastatin Calcium (Lipitor) 40 mg PO HS [facility] Last Admin: 04/11/18 22:23 Dose: 40 mg Clonidine HCl (Catapres) 0.2 mg PO BID [facility] Last Admin: 04/12/18 08:29 Dose: 0.2 mg Docusate Sodium (Colace) 100 mg PO DAILY PRN PRN Reason: Constipation Last Admin: 04/10/18 08:43 Dose: 100 mg Enalapril Maleate (Vasotec) 20 mg PO BID [facility] Last Admin: 04/12/18 08:24 Dose: 20 mg Ferrous Sulfate (Feosol) 325 mg PO TID [facility] Last Admin: 04/12/18 08:30 Dose: 325 mg Furosemide (Lasix) 40 mg IVP DAILY [facility] Last Admin: 04/12/18 08:32 Dose: 40 mg Hydromorphone HCl (Dilaudid) 1 mg IVP Q4 PRN PRN Reason: Pain, moderate (4-7) Last Admin: 04/12/18 08:06 Dose: 1 mg Vancomycin HCl 750 mg/ Sodium (Chloride) 250 mls @ 166.667 mls/hr IVPB DAILY [facility]; Protocol Last Admin: 04/11/18 09:32 Dose: 166.667 mls/hr Piperacillin Sod/Tazobactam (Sod 2.25 gm/ Sodium Chloride) 100 mls @ 100 mls/hr IVPB Q8 [facility]; Protocol Last Admin: 04/12/18 00:31 Dose: 100 mls/hr Insulin Detemir (Levemir) 70 units SC HS [facility] Last Admin: 04/11/18 22:30 Dose: Not Given Insulin Human Lispro (Humalog) 0 units SC ACHS [facility] Last Admin: 04/12/18 08:25 Dose: Not Given Insulin Human Lispro (Humalog) 30 units SC AC [facility] Last Admin: 04/12/18 08:31 Dose: 30 u Isosorbide Mononitrate (Imdur) 60 mg PO DAILY [facility] Last Admin: 04/12/18 08:30 Dose: 60 mg Lactulose (Enulose) 10 gm PO DAILY PRN PRN Reason: Constipation Last Admin: 04/11/18 09:27 Dose: 10 gm Metoprolol Succinate (Toprol Xl) 200 mg PO Q12 [facility] Last Admin: 04/12/18 08:30 Dose: 200 mg Morphine Sulfate (Morphine Extended Release Tab) 30 mg PO Q8@0400,1200,2000 [facility] Last Admin: 04/11/18 20:30 Dose: Not Given Ondansetron HCl (Zofran Inj) 4 mg IVP Q4 PRN PRN Reason: Nausea/Vomiting Oxycodone HCl (Oxycodone Immediate Release Tab) 30 mg PO Q6 PRN PRN Reason: Pain, moderate (4-7) Last Admin: 04/12/18 06:15 Dose: 30 mg Pantoprazole Sodium (Protonix Inj) 40 mg IVP DAILY [facility] Last Admin: 04/12/18 08:30 Dose: 40 mg - Labs Labs: 04/12/18 05:45 04/12/18 05:45 PT 12.1 Seconds (9.8-13.1) 04/02/18 19:00 INR 1.1 04/02/18 19:00 APTT 30.7 Seconds (25.6-37.1) 04/02/18 19:00 - Constitutional Appears: Well, Non-toxic, No Acute Distress - Head Exam Head Exam: ATRAUMATIC, NORMOCEPHALIC - Extremities Exam Additional comments: Vasc: DP/PT pulses palpable 1/4 on the right. Unable to assess DP/PT to left secondary to obstruction from external fixation device, cap refill on left foot <3 to all digits, refill time to distal right foot WNL, mild edema present about the surgery sites with pin placement. Neuro: protective sensation absent bilaterally, gross protective sensation intact bilaterally Derm: dressing clean and dry without strike-through, no drainage, suture sites with skin well reapproximated and coapted with no signs of dehiscence noted, no malodor or pus, pin sites are clean with minimal sanguineous drainage, no erythema, no streaking, no fluctanance, no clinical signs of infection bilaterally Right: Ulceration, now hyperkeratotic, healed noted to plantar midfoot on the right. No malodor, No drainage. no tracking, undermining or probing to bone, no purulence, no fluctuance or abscess noted. Medial aspect of lower 1/3 with small superfical abrasion secondary to patient hitting right leg on left lower extremity external fixator. 100% granular base with no clinical signs of infection MSK: pain on palpation about the left lower leg and surgery sites; external fixation limits any motion at the left lower extremity. No pain on palpating the right foot ulcer. - Neurological Exam Neurological Exam: Alert, Awake, Oriented x3 - Psychiatric Exam Psychiatric exam: Normal Affect, Normal Mood Assessment and Plan - Assessment and Plan (Free Text) Assessment: 52F 15 days s/p left foot charcot neuroarthropathy reconstruction using external fixation device- stable Plan: Patient seen and evaluated at the bedside Discussed in detail with Dr. Macdonald Charts and labs reviewed: afebrile and absent leukocytosis Dressing keep clean, dry, and intact H/H- management per medicine Changed left lower extremity dressing. Cleansed entire site and external fixation with saline solution, pat dry, applied xerpform to skin lesions with pin site, dsd, clings, and HELGA Right plantar ulceration and right medial superficial abrasion cleansed with saline solution, dressed with xeroform and DSD X-rays left foot (04/07/18) -stable postoperative findings Discussed future plan with medicine- patient will be transferred to [facility] once stable Patient second Podiatric surgery postponed until patient stable Continue IV Antibiotics Podiatry will continue to follow up patient while in house
[2018-04-12] MEDS: Morphine 30 mg SR Tab PO SCH ×2 (15:13→20:21)
--- NOTE | 2018-04-12 20:26 | PN ---
DATE: 04/12/2018 ENDO FOLLOWUP NOTE LOCATION: In room 660. SUBJECTIVE: This is a 52-year-old female with recent uncontrolled type 2 insulin-requiring diabetes, now being followed closely for metabolic management. Her glycemic levels are extremely erratic and fluctuating because of the variability of her oral intake. She was low normal last night and her glucose dropped to 54 and 72 mg/dL. LABORATORY DATA: Today her glucose levels are over 500 mg/dL with the chemistry showing a BUN of 34, sodium 141, potassium 4.4, chloride 105, CO2 of 29, glucose 254, and creatinine 1.4. ASSESSMENT AND PLAN: So at this time, we will resume her Humalog given as 30 units subcutaneously t.i.d. before meals as ordered and also the basal insulin given as Levemir at 70 units subcutaneously at bedtime daily as given. We will titrate incrementally as indicated to optimize metabolic control. We will obtain serial chemistries and supplement accordingly as needed. We will follow. Yesika Vogel MD
[2018-04-12] MEDS: Insulin Detemir 100 Units/ml Inj SC SCH (22:23)
[2018-04-13] MEDS: oxyCODONE 10 mg Immediate Release Tab PO PRN (00:07)
[2018-04-13] MEDS: Morphine 30 mg SR Tab PO SCH ×3 (04:12→20:30)
[2018-04-13] MEDS: Insulin Lispro (humaLOG) 100 Units/ml Inj SC SCH ×7 (08:30→21:45)
[2018-04-13] MEDS: Metoprolol Succinate 100 mg XL Tab PO SCH ×2 (09:34→21:34)
--- NOTE | 2018-04-13 10:28 | CP.PCM.PN ---
Subjective - Date & Time of Evaluation Date of Evaluation: 04/13/18 Time of Evaluation: 10:28 - Subjective Subjective: SOB IMPROVED TODAY LUNG SCABN ORDERED BY DR HUERTA TO R/O PULMONARY EMBOLI Objective - Vital Signs/Intake and Output Vital Signs (last 24 hours): Temp Pulse Resp BP Pulse Ox 98.5 F 69 90 H 149/74 96 04/13/18 08:16 04/13/18 09:34 04/13/18 08:16 04/13/18 09:34 04/13/18 08:16 Intake and Output: 04/13/18 04/13/18 06:59 18:59 Intake Total 350 Balance 350 - Medications Medications: Current Medications Acetaminophen (Tylenol 325mg Tab) 650 mg PO Q4 PRN PRN Reason: Pain, Mild (1-3) Albuterol/Ipratropium (Duoneb 3 Mg/0.5 Mg (3 Ml) Ud) 3 ml INH RQ6 PRN PRN Reason: Shortness of Breath Last Admin: 04/12/18 08:29 Dose: 3 ml Alprazolam (Xanax) 0.25 mg PO BID PRN PRN Reason: Anxiety Stop: 04/19/18 17:01 Amlodipine Besylate (Norvasc) 10 mg PO DAILY [facility] Last Admin: 04/13/18 09:29 Dose: 10 mg Aspirin (Ecotrin) 81 mg PO DAILY [facility] Last Admin: 04/13/18 09:20 Dose: 81 mg Atorvastatin Calcium (Lipitor) 40 mg PO HS [facility] Last Admin: 04/12/18 22:18 Dose: 40 mg Clonidine HCl (Catapres) 0.2 mg PO BID [facility] Last Admin: 04/13/18 09:19 Dose: 0.2 mg Docusate Sodium (Colace) 100 mg PO DAILY PRN PRN Reason: Constipation Last Admin: 04/10/18 08:43 Dose: 100 mg Enalapril Maleate (Vasotec) 20 mg PO BID [facility] Last Admin: 04/13/18 09:36 Dose: 20 mg Ferrous Sulfate (Feosol) 325 mg PO TID [facility] Last Admin: 04/13/18 09:20 Dose: 325 mg Furosemide (Lasix) 40 mg IVP DAILY [facility] Last Admin: 04/13/18 09:28 Dose: 40 mg Heparin Sodium (Porcine) (Heparin) 5,000 units SC Q12 [facility]; Protocol Last Admin: 04/13/18 09:21 Dose: 5,000 units Hydromorphone HCl (Dilaudid) 1 mg IVP Q4 PRN PRN Reason: Pain, moderate (4-7) Last Admin: 04/13/18 10:00 Dose: 1 mg Vancomycin HCl 750 mg/ Sodium (Chloride) 250 mls @ 166.667 mls/hr IVPB DAILY [facility]; Protocol Last Admin: 04/13/18 09:36 Dose: 166.667 mls/hr Piperacillin Sod/Tazobactam (Sod 2.25 gm/ Sodium Chloride) 100 mls @ 100 mls/hr IVPB Q8 [facility]; Protocol Last Admin: 04/13/18 09:38 Dose: 100 mls/hr Insulin Detemir (Levemir) 70 units SC HS [facility] Last Admin: 04/12/18 22:23 Dose: 70 units Insulin Human Lispro (Humalog) 0 units SC ACHS [facility] Last Admin: 04/13/18 08:33 Dose: Not Given Insulin Human Lispro (Humalog) 30 units SC AC [facility] Last Admin: 04/13/18 08:30 Dose: 30 u Isosorbide Mononitrate (Imdur) 60 mg PO DAILY [facility] Last Admin: 04/13/18 09:27 Dose: 60 mg Lactulose (Enulose) 10 gm PO DAILY PRN PRN Reason: Constipation Last Admin: 04/11/18 09:27 Dose: 10 gm Metoprolol Succinate (Toprol Xl) 200 mg PO Q12 [facility] Last Admin: 04/13/18 09:34 Dose: 200 mg Morphine Sulfate (Morphine Extended Release Tab) 30 mg PO Q8@0400,1200,2000 [facility] Last Admin: 04/13/18 04:12 Dose: 30 mg Ondansetron HCl (Zofran Inj) 4 mg IVP Q4 PRN PRN Reason: Nausea/Vomiting Last Admin: 04/12/18 21:14 Dose: 4 mg Oxycodone HCl (Oxycodone Immediate Release Tab) 30 mg PO Q6 PRN PRN Reason: Pain, moderate (4-7) Last Admin: 04/13/18 00:07 Dose: 30 mg Pantoprazole Sodium (Protonix Inj) 40 mg IVP DAILY [facility] Last Admin: 04/13/18 09:30 Dose: 40 mg - Labs Labs: 04/12/18 05:45 04/12/18 05:45 PT 12.1 Seconds (9.8-13.1) 04/02/18 19:00 INR 1.1 04/02/18 19:00 APTT 30.7 Seconds (25.6-37.1) 04/02/18 19:00 - Constitutional Appears: Chronically Ill - Head Exam Head Exam: ATRAUMATIC, NORMAL INSPECTION, NORMOCEPHALIC - Eye Exam Eye Exam: EOMI, Normal appearance, PERRL Pupil Exam: NORMAL ACCOMODATION, PERRL - ENT Exam ENT Exam: Mucous Membranes Moist, Normal Exam - Neck Exam Neck Exam: Full ROM, Normal Inspection. absent: Lymphadenopathy - Respiratory Exam Respiratory Exam: Clear to Ausculation Bilateral, NORMAL BREATHING PATTERN - Cardiovascular Exam Cardiovascular Exam: REGULAR RHYTHM, +S1, +S2. absent: Murmur - GI/Abdominal Exam GI & Abdominal Exam: Soft, Normal Bowel Sounds. absent: Tenderness - Rectal Exam Rectal Exam: NORMAL INSPECTION - Extremities Exam Extremities Exam: Full ROM, Tenderness. absent: Joint Swelling, Pedal Edema - Back Exam Back Exam: NORMAL INSPECTION - Neurological Exam Neurological Exam: Alert, Awake, CN II-XII Intact, Normal Gait, Oriented x3 - Psychiatric Exam Psychiatric exam: Normal Affect, Normal Mood - Skin Skin Exam: Dry, Intact, Normal Color, Warm Assessment and Plan - Assessment and Plan (Free Text) Assessment: SOB PROBABLY DUE TO CHF--IMPROVED S/P L FOOT/ANKLE SURGERY DM HTN Plan: CONTINUE CURRENT RX TRANSFER TO SUBACUTE CARE IF LUNG SCAN IS NON-REVEALING
--- NOTE | 2018-04-13 10:43 | CP.PCM.PN ---
Subjective - Date & Time of Evaluation Date of Evaluation: 04/13/18 Time of Evaluation: 10:41 - Subjective Subjective: Podiatry progress note for attending Dr. 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 Patient is sleeping comfortably in bed at this time and in NAD. As per nursing, no acute events and patient to go for a VQ Scan at some point today. Objective - Vital Signs/Intake and Output Vital Signs (last 24 hours): Temp Pulse Resp BP Pulse Ox 98.5 F 69 90 H 149/74 96 04/13/18 08:16 04/13/18 09:34 04/13/18 08:16 04/13/18 09:34 04/13/18 08:16 Intake and Output: 04/13/18 04/13/18 06:59 18:59 Intake Total 350 Balance 350 - Medications Medications: Current Medications Acetaminophen (Tylenol 325mg Tab) 650 mg PO Q4 PRN PRN Reason: Pain, Mild (1-3) Albuterol/Ipratropium (Duoneb 3 Mg/0.5 Mg (3 Ml) Ud) 3 ml INH RQ6 PRN PRN Reason: Shortness of Breath Last Admin: 04/12/18 08:29 Dose: 3 ml Alprazolam (Xanax) 0.25 mg PO BID PRN PRN Reason: Anxiety Stop: 04/19/18 17:01 Amlodipine Besylate (Norvasc) 10 mg PO DAILY [facility] Last Admin: 04/13/18 09:29 Dose: 10 mg Aspirin (Ecotrin) 81 mg PO DAILY [facility] Last Admin: 04/13/18 09:20 Dose: 81 mg Atorvastatin Calcium (Lipitor) 40 mg PO HS [facility] Last Admin: 04/12/18 22:18 Dose: 40 mg Clonidine HCl (Catapres) 0.2 mg PO BID [facility] Last Admin: 04/13/18 09:19 Dose: 0.2 mg Docusate Sodium (Colace) 100 mg PO DAILY PRN PRN Reason: Constipation Last Admin: 04/10/18 08:43 Dose: 100 mg Enalapril Maleate (Vasotec) 20 mg PO BID [facility] Last Admin: 04/13/18 09:36 Dose: 20 mg Ferrous Sulfate (Feosol) 325 mg PO TID [facility] Last Admin: 04/13/18 09:20 Dose: 325 mg Furosemide (Lasix) 40 mg IVP DAILY [facility] Last Admin: 04/13/18 09:28 Dose: 40 mg Heparin Sodium (Porcine) (Heparin) 5,000 units SC Q12 [facility]; Protocol Last Admin: 04/13/18 09:21 Dose: 5,000 units Hydromorphone HCl (Dilaudid) 1 mg IVP Q4 PRN PRN Reason: Pain, moderate (4-7) Last Admin: 04/13/18 10:00 Dose: 1 mg Vancomycin HCl 750 mg/ Sodium (Chloride) 250 mls @ 166.667 mls/hr IVPB DAILY [facility]; Protocol Last Admin: 04/13/18 09:36 Dose: 166.667 mls/hr Piperacillin Sod/Tazobactam (Sod 2.25 gm/ Sodium Chloride) 100 mls @ 100 mls/hr IVPB Q8 [facility]; Protocol Last Admin: 04/13/18 09:38 Dose: 100 mls/hr Insulin Detemir (Levemir) 70 units SC HS [facility] Last Admin: 04/12/18 22:23 Dose: 70 units Insulin Human Lispro (Humalog) 0 units SC ACHS [facility] Last Admin: 04/13/18 08:33 Dose: Not Given Insulin Human Lispro (Humalog) 30 units SC AC [facility] Last Admin: 04/13/18 08:30 Dose: 30 u Isosorbide Mononitrate (Imdur) 60 mg PO DAILY [facility] Last Admin: 04/13/18 09:27 Dose: 60 mg Lactulose (Enulose) 10 gm PO DAILY PRN PRN Reason: Constipation Last Admin: 04/11/18 09:27 Dose: 10 gm Metoprolol Succinate (Toprol Xl) 200 mg PO Q12 [facility] Last Admin: 04/13/18 09:34 Dose: 200 mg Morphine Sulfate (Morphine Extended Release Tab) 30 mg PO Q8@0400,1200,2000 [facility] Last Admin: 04/13/18 04:12 Dose: 30 mg Ondansetron HCl (Zofran Inj) 4 mg IVP Q4 PRN PRN Reason: Nausea/Vomiting Last Admin: 04/12/18 21:14 Dose: 4 mg Oxycodone HCl (Oxycodone Immediate Release Tab) 30 mg PO Q6 PRN PRN Reason: Pain, moderate (4-7) Last Admin: 04/13/18 00:07 Dose: 30 mg Pantoprazole Sodium (Protonix Inj) 40 mg IVP DAILY [facility] Last Admin: 04/13/18 09:30 Dose: 40 mg - Labs Labs: 04/12/18 05:45 04/12/18 05:45 PT 12.1 Seconds (9.8-13.1) 04/02/18 19:00 INR 1.1 04/02/18 19:00 APTT 30.7 Seconds (25.6-37.1) 04/02/18 19:00 - Constitutional Appears: Well, Non-toxic, No Acute Distress - Head Exam Head Exam: ATRAUMATIC, NORMOCEPHALIC - Extremities Exam Additional comments: Dressing clean, dry and intact - Psychiatric Exam Psychiatric exam: Normal Affect, Normal Mood Assessment and Plan - Assessment and Plan (Free Text) Assessment: 52 y/o female 16 days s/p left foot charcot neuroarthropathy reconstruction using external fixation device Plan: Patient seen and evaluated at the bedside Discussed in detail with Dr. Macdonald Charts and labs reviewed: afebrile and absent leukocytosis Dressing keep clean, dry, and intact H/H- management per medicine X-rays left foot (04/07/18) -stable postoperative findings Discussed future plan with medicine- patient will be transferred to [facility] once stable As per nursing, patient to go for VQ Scan today Patient second Podiatric surgery postponed until patient stable Continue IV Antibiotics Podiatry will continue to follow up patient while in house
--- NOTE | 2018-04-13 12:57 | RAD ---
Date of service: 04/13/2018 HISTORY: Follow up COMPARISON: Chest radiograph dated 04/07/2018. FINDINGS: LUNGS: Bibasilar patchy opacities. PLEURA: No significant pleural effusion identified, no pneumothorax apparent. CARDIOVASCULAR: Cardiomediastinal silhouette stably enlarged. OSSEOUS STRUCTURES: Unchanged. VISUALIZED UPPER ABDOMEN: Normal. OTHER FINDINGS: Right upper extremity PICC, unchanged. IMPRESSION: Patchy bibasilar opacities.
--- NOTE | 2018-04-13 14:01 | CP.PCM.PCO ---
Assessment/Plan - Assessment/Plan Assessment (Free Text): Per Dr. Helton, pt to continue Vancomycin 750mg IV every other day x 1 week and Zosyn 2.225mg q 8 hrs x 1 week. SW aware to inform G[facility]
--- NOTE | 2018-04-13 15:44 | NM ---
Date of service: 04/13/2018 COMPARISON: 04/13/2018 single-view chest TECHNIQUE: 40.0 mCi technetium 99-m DTPA aerosol. 6.14 mCI technetium 99-m MAA administered intravenously. FINDINGS: VENTILATION COMPONENT: Heterogeneous ventilation. Retention of radionuclide in the tracheobronchial tree and ingestion of radionuclide in the stomach, incidental findings PERFUSION COMPONENT: Heterogeneous distribution of radionuclide. No geographic, segmental, lobar abnormalities apparent on the present examination. IMPRESSION: Low probability ventilation perfusion scan for pulmonary embolism.
--- NOTE | 2018-04-13 17:58 | CARD ---
APPROVED REPORT Date of service: 04/13/2018 EKG Measurement Heart [id number] <Conclusion> Normal sinus rhythm Possible Left atrial enlargement ST & T wave abnormality, consider lateral ischemia Abnormal ECG
--- NOTE | 2018-04-13 20:14 | PN ---
DATE: 04/13/2018 ENDO FOLLOWUP NOTE LOCATION: In room 660. SUBJECTIVE: This is a 52-year-old female with recent uncontrolled type 2 insulin-requiring diabetes with extremes of glycemic fluctuations and now underwent a recent left foot resection because of underlying osteomyelitis and cellulitis as noted thereof. Her glycemic levels are fluctuating and also the variability of her oral intake has been noted by the nursing staff. Her glucose levels overnight have ranged from 139 to 163 and 169 mg/dL. ASSESSMENT AND PLAN: We will observe the serial chemistries and supplement accordingly as needed. We will continue the intravenous hydration with normal saline infusion as ordered. We will obtain serial chemistries and supplement accordingly as needed. We will follow. Yesika Vogel MD
[2018-04-13] MEDS: Insulin Detemir 100 Units/ml Inj SC SCH (21:42)
[2018-04-13 23:58] VITALS: PULSE 71
[2018-04-14] MEDS: Morphine 30 mg SR Tab PO SCH (04:26)
[2018-04-14] MEDS: Insulin Lispro (humaLOG) 100 Units/ml Inj SC SCH ×2 (06:53→09:07)
[2018-04-14 08:14] VITALS: BP 148/78; RESP 19; TEMP 97.8; O2SAT 97
[2018-04-14] MEDS: Metoprolol Succinate 100 mg XL Tab PO SCH (09:10)
--- NOTE | 2018-04-14 09:30 | CP.PCM.PN ---
Subjective - Date & Time of Evaluation Date of Evaluation: 04/14/18 Time of Evaluation: 09:30 - Subjective Subjective: FEELS BETTER NO CHEST PAINS/SOB Objective - Vital Signs/Intake and Output Vital Signs (last 24 hours): Temp Pulse Resp BP Pulse Ox 97.8 F 71 19 148/78 97 04/14/18 08:13 04/14/18 09:10 04/14/18 08:13 04/14/18 09:10 04/14/18 08:13 - Medications Medications: Current Medications Acetaminophen (Tylenol 325mg Tab) 650 mg PO Q4 PRN PRN Reason: Pain, Mild (1-3) Albuterol/Ipratropium (Duoneb 3 Mg/0.5 Mg (3 Ml) Ud) 3 ml INH RQ6 PRN PRN Reason: Shortness of Breath Last Admin: 04/12/18 08:29 Dose: 3 ml Alprazolam (Xanax) 0.25 mg PO BID PRN PRN Reason: Anxiety Stop: 04/19/18 17:01 Last Admin: 04/13/18 13:33 Dose: 0.25 mg Amlodipine Besylate (Norvasc) 10 mg PO DAILY [facility] Last Admin: 04/14/18 09:05 Dose: 10 mg Aspirin (Ecotrin) 81 mg PO DAILY [facility] Last Admin: 04/14/18 09:04 Dose: 81 mg Atorvastatin Calcium (Lipitor) 40 mg PO HS [facility] Last Admin: 04/13/18 21:34 Dose: 40 mg Clonidine HCl (Catapres) 0.2 mg PO BID [facility] Last Admin: 04/14/18 09:06 Dose: 0.2 mg Docusate Sodium (Colace) 100 mg PO DAILY PRN PRN Reason: Constipation Last Admin: 04/14/18 09:04 Dose: 100 mg Enalapril Maleate (Vasotec) 20 mg PO BID [facility] Last Admin: 04/14/18 09:05 Dose: 20 mg Ferrous Sulfate (Feosol) 325 mg PO TID [facility] Last Admin: 04/14/18 09:04 Dose: 325 mg Furosemide (Lasix) 40 mg IVP DAILY [facility] Last Admin: 04/14/18 09:08 Dose: 40 mg Heparin Sodium (Porcine) (Heparin) 5,000 units SC Q12 [facility]; Protocol Last Admin: 04/14/18 09:07 Dose: 5,000 units Hydromorphone HCl (Dilaudid) 1 mg IVP Q4 PRN PRN Reason: Pain, moderate (4-7) Last Admin: 04/14/18 08:34 Dose: 1 mg Vancomycin HCl 750 mg/ Sodium (Chloride) 250 mls @ 166.667 mls/hr IVPB DAILY [facility]; Protocol Last Admin: 04/14/18 09:11 Dose: 166.667 mls/hr Piperacillin Sod/Tazobactam (Sod 2.25 gm/ Sodium Chloride) 100 mls @ 100 mls/hr IVPB Q8 [facility]; Protocol Last Admin: 04/14/18 09:12 Dose: 100 mls/hr Insulin Detemir (Levemir) 70 units SC HS [facility] Last Admin: 04/13/18 21:42 Dose: 70 units Insulin Human Lispro (Humalog) 0 units SC ACHS [facility] Last Admin: 04/14/18 06:53 Dose: Not Given Insulin Human Lispro (Humalog) 30 units SC AC [facility] Last Admin: 04/14/18 09:07 Dose: 30 u Isosorbide Mononitrate (Imdur) 60 mg PO DAILY [facility] Last Admin: 04/14/18 09:08 Dose: 60 mg Lactulose (Enulose) 10 gm PO DAILY PRN PRN Reason: Constipation Last Admin: 04/11/18 09:27 Dose: 10 gm Metoprolol Succinate (Toprol Xl) 200 mg PO Q12 [facility] Last Admin: 04/14/18 09:10 Dose: 200 mg Morphine Sulfate (Morphine Extended Release Tab) 30 mg PO Q8@0400,1200,2000 [facility] Last Admin: 04/14/18 04:26 Dose: Not Given Ondansetron HCl (Zofran Inj) 4 mg IVP Q4 PRN PRN Reason: Nausea/Vomiting Last Admin: 04/12/18 21:14 Dose: 4 mg Oxycodone HCl (Oxycodone Immediate Release Tab) 30 mg PO Q6 PRN PRN Reason: Pain, moderate (4-7) Last Admin: 04/13/18 00:07 Dose: 30 mg Pantoprazole Sodium (Protonix Inj) 40 mg IVP DAILY [facility] Last Admin: 04/14/18 09:10 Dose: 40 mg - Labs Labs: 04/12/18 05:45 04/12/18 05:45 PT 12.1 Seconds (9.8-13.1) 04/02/18 19:00 INR 1.1 04/02/18 19:00 APTT 30.7 Seconds (25.6-37.1) 04/02/18 19:00 - Constitutional Appears: No Acute Distress - Head Exam Head Exam: ATRAUMATIC, NORMAL INSPECTION, NORMOCEPHALIC - Eye Exam Eye Exam: EOMI, Normal appearance, PERRL Pupil Exam: NORMAL ACCOMODATION, PERRL - ENT Exam ENT Exam: Mucous Membranes Moist, Normal Exam - Neck Exam Neck Exam: Full ROM, Normal Inspection. absent: Lymphadenopathy - Respiratory Exam Respiratory Exam: Clear to Ausculation Bilateral, NORMAL BREATHING PATTERN - Cardiovascular Exam Cardiovascular Exam: REGULAR RHYTHM, +S1, +S2. absent: Murmur - GI/Abdominal Exam GI & Abdominal Exam: Soft, Normal Bowel Sounds. absent: Tenderness - Rectal Exam Rectal Exam: NORMAL INSPECTION - Extremities Exam Extremities Exam: Tenderness. absent: Joint Swelling, Pedal Edema - Back Exam Back Exam: NORMAL INSPECTION - Neurological Exam Neurological Exam: Alert, Awake, CN II-XII Intact, Normal Gait, Oriented x3 - Psychiatric Exam Psychiatric exam: Normal Affect, Normal Mood - Skin Skin Exam: Dry, Intact, Normal Color, Warm Assessment and Plan - Assessment and Plan (Free Text) Assessment: CHF-IMPROVED OSTEOMYELITIS OF L FOOT DM HTN Plan: OK TO TRANSFER TO SUBACUTE CARE
--- NOTE | 2018-04-14 10:01 | PQF ---
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 Please specify the cause (includes suspected or probable cause) Such as: -- Due to acute blood loss -- Due to chronic blood loss The patient's Clinical Indicators include: Progress note of 04/04/18 Anemia --Combined ( Blood Loss and Chronic disease) 04/06 Orders: Transfuse PRBC, on Feosol Query created by: Yulia Maharaj on 04/06/2018 11:16 AM Electronically signed by: Mario Malagon MD 04/14/2018 9:58 AM
--- NOTE | 2018-04-14 10:01 | PQF ---
PROVIDER RESPONSE TEXT: ELEVATED BUN/CR DUE TO CHRONIC KIDNEY DISEASE REVIEWER QUERY TEXT: Documentation Clarification Your help is requested in clarifying the following clinical documentation,( Elevated Bun and Creatini ne ) if you can please further specify in the medical record and discharge summary. The patient's Clinical Indicators include: BUN 31, 33, 30 then on 04/04to 04/06 BUN 48, 51, 53 Creatinine 1.2, 1.3, 1.1, 0.9 then on 04/04 to 04/06 1.9, 1.7, 1.8, 1.7 GFR 47, 43, 52, >60 then on 04/04 to 04/06 28, 32, 30, 32 Query created by: Yulia Maharaj on 04/06/2018 11:22 AM Electronically signed by: Mario Malagon MD 04/14/2018 9:58 AM
--- NOTE | 2018-04-14 10:50 | RAD ---
Date of service: 04/13/2018 PROCEDURE: Left Foot Radiographs. HISTORY: s/p surgery COMPARISON: None. FINDINGS: BONES: Charcot foot, status post external fixation. In comparison to prior examination, no significant change in alignment. No new fracture appreciated. Examination grossly limited by overlying metallic hardware. JOINTS: As above SOFT TISSUES: Normal. OTHER FINDINGS: None. IMPRESSION: External fixation. Charcot foot. No interval change.
[2018-04-14] MEDS ORDERED: oxyCODONE 5 mg Immediate Release Tab PO PRN (11:00)
--- NOTE | 2018-04-14 12:05 | CP.PCM.PN ---
Subjective - Date & Time of Evaluation Date of Evaluation: 04/14/18 Time of Evaluation: 12:00 - Subjective Subjective: Podiatry progress note for attending Dr. Macdonald: 51 yo female seen and evaluated 17 days s/p left foot charcot neuroarthropathy reconstruction with external fixation. Patient is laying comfortably in bed, AAOx3 and in NAD. Patient reports the same pain to the posterior ankle and intermittent shooting pain. Patient reports pain is well controlled with medication. Patient denies any other pedal complaint at this time. She denies any overnight N/V/F/SOB/CP Objective - Vital Signs/Intake and Output Vital Signs (last 24 hours): Temp Pulse Resp BP Pulse Ox 97.8 F 71 19 148/78 97 04/14/18 08:13 04/14/18 09:10 04/14/18 08:13 04/14/18 09:10 04/14/18 08:13 - Medications Medications: Current Medications Acetaminophen (Tylenol 325mg Tab) 650 mg PO Q4 PRN PRN Reason: Pain, Mild (1-3) Albuterol/Ipratropium (Duoneb 3 Mg/0.5 Mg (3 Ml) Ud) 3 ml INH RQ6 PRN PRN Reason: Shortness of Breath Last Admin: 04/12/18 08:29 Dose: 3 ml Alprazolam (Xanax) 0.25 mg PO BID PRN PRN Reason: Anxiety Stop: 04/19/18 17:01 Last Admin: 04/13/18 13:33 Dose: 0.25 mg Amlodipine Besylate (Norvasc) 10 mg PO DAILY [facility] Last Admin: 04/14/18 09:05 Dose: 10 mg Aspirin (Ecotrin) 81 mg PO DAILY [facility] Last Admin: 04/14/18 09:04 Dose: 81 mg Atorvastatin Calcium (Lipitor) 40 mg PO HS [facility] Last Admin: 04/13/18 21:34 Dose: 40 mg Clonidine HCl (Catapres) 0.2 mg PO BID [facility] Last Admin: 04/14/18 09:06 Dose: 0.2 mg Docusate Sodium (Colace) 100 mg PO DAILY PRN PRN Reason: Constipation Last Admin: 04/14/18 09:04 Dose: 100 mg Enalapril Maleate (Vasotec) 20 mg PO BID [facility] Last Admin: 04/14/18 09:05 Dose: 20 mg Ferrous Sulfate (Feosol) 325 mg PO TID [facility] Last Admin: 04/14/18 09:04 Dose: 325 mg Furosemide (Lasix) 40 mg IVP DAILY [facility] Last Admin: 04/14/18 09:08 Dose: 40 mg Heparin Sodium (Porcine) (Heparin) 5,000 units SC Q12 [facility]; Protocol Last Admin: 04/14/18 09:07 Dose: 5,000 units Hydromorphone HCl (Dilaudid) 1 mg IVP Q4 PRN PRN Reason: Pain, moderate (4-7) Last Admin: 04/14/18 08:34 Dose: 1 mg Vancomycin HCl 750 mg/ Sodium (Chloride) 250 mls @ 166.667 mls/hr IVPB DAILY [facility]; Protocol Last Admin: 04/14/18 09:11 Dose: 166.667 mls/hr Piperacillin Sod/Tazobactam (Sod 2.25 gm/ Sodium Chloride) 100 mls @ 100 mls/hr IVPB Q8 [facility]; Protocol Last Admin: 04/14/18 09:12 Dose: 100 mls/hr Insulin Detemir (Levemir) 70 units SC HS [facility] Last Admin: 04/13/18 21:42 Dose: 70 units Insulin Human Lispro (Humalog) 0 units SC ACHS [facility] Last Admin: 04/14/18 06:53 Dose: Not Given Insulin Human Lispro (Humalog) 30 units SC AC [facility] Last Admin: 04/14/18 09:07 Dose: 30 u Isosorbide Mononitrate (Imdur) 60 mg PO DAILY [facility] Last Admin: 04/14/18 09:08 Dose: 60 mg Lactulose (Enulose) 10 gm PO DAILY PRN PRN Reason: Constipation Last Admin: 04/11/18 09:27 Dose: 10 gm Metoprolol Succinate (Toprol Xl) 200 mg PO Q12 [facility] Last Admin: 04/14/18 09:10 Dose: 200 mg Morphine Sulfate (Morphine Extended Release Tab) 30 mg PO Q8@0400,1200,2000 [facility] Last Admin: 04/14/18 04:26 Dose: Not Given Ondansetron HCl (Zofran Inj) 4 mg IVP Q4 PRN PRN Reason: Nausea/Vomiting Last Admin: 04/12/18 21:14 Dose: 4 mg Oxycodone HCl (Oxycodone Immediate Release Tab) 30 mg PO Q6 PRN PRN Reason: Pain, moderate (4-7) Last Admin: 04/14/18 10:59 Dose: 30 mg Pantoprazole Sodium (Protonix Inj) 40 mg IVP DAILY [facility] Last Admin: 04/14/18 09:10 Dose: 40 mg - Labs Labs: 04/12/18 05:45 04/12/18 05:45 PT 12.1 Seconds (9.8-13.1) 04/02/18 19:00 INR 1.1 04/02/18 19:00 APTT 30.7 Seconds (25.6-37.1) 04/02/18 19:00 - Constitutional Appears: Well, Non-toxic, No Acute Distress - Head Exam Head Exam: ATRAUMATIC, NORMOCEPHALIC - Extremities Exam Additional comments: Vasc: DP/PT pulses palpable 1/4 on the right. Unable to assess DP/PT to left secondary to obstruction from external fixation device, cap refill on left foot <3 to all digits, refill time to distal right foot WNL, mild edema present about the surgery sites with pin placement. Neuro: protective sensation absent bilaterally, gross protective sensation intact bilaterally Derm: dressing clean and dry without strike-through, no drainage, suture sites with skin well reapproximated and coapted with no signs of dehiscence noted, no malodor or pus, pin sites are clean with minimal sanguineous drainage, no erythema, no streaking, no fluctanance, no clinical signs of infection bilaterally Right: Ulceration, now hyperkeratotic, healed noted to plantar midfoot on the right. No malodor, No drainage. no tracking, undermining or probing to bone, no purulence, no fluctuance or abscess noted. Medial aspect of lower 1/3 with small superfical abrasion secondary to patient hitting right leg on left lower extremity external fixator. 100% granular base with no clinical signs of infection MSK: pain on palpation about the left lower leg and surgery sites; external fixation limits any motion at the left lower extremity. No pain on palpating the right foot ulcer. - Neurological Exam Neurological Exam: Alert, Awake, Oriented x3 - Psychiatric Exam Psychiatric exam: Normal Affect, Normal Mood Assessment and Plan - Assessment and Plan (Free Text) Assessment: 52 y/o female 17 days s/p left foot charcot neuroarthropathy reconstruction using external fixation device Plan: Patient seen and evaluated at the bedside Discussed in detail with Dr. Macdonald Charts and labs reviewed: afebrile and absent leukocytosis Patient bilateral dressings were changed. -Right- Dry sterile dressing with 4X4 gauze, ABD pad and Kerlix. -Left- Cleansed entire site and external fixation with saline solution, pat dry, xeroform and gauze at every pin site, with cling, and HELGA X-rays left foot (04/13/18) - increased consolidation and stable postoperative findings Discussed future plan with medicine- patient will be transferred to [facility] today Patient to follow up with Dr. Macdonald ([place]) once/week for left foot dressing change Patient second Podiatric surgery postponed until patient stable Continue IV Antibiotics Podiatry will continue to follow up patient while in house
--- NOTE | 2018-04-14 19:38 | PN ---
DATE: 04/14/2018 ENDO FOLLOWUP NOTE LOCATION: In room 660. SUBJECTIVE: This is a 52-year-old female with recent uncontrolled type 2 insulin-requiring diabetes, now being followed closely for metabolic management. Her glycemic levels are fluctuating, but improved and the glucose values today have ranged from 247 to 264 mg/dL. It was 198 at bedtime last night. LABORATORY DATA: The latest chemistry showed a BUN of 34, sodium 141, potassium 4.4, chloride 105, CO2 of 29, glucose 254, and creatinine 1.4. ASSESSMENT AND PLAN: So at this time, we will still continue the same basal and bolus insulin regimen to allow for dose equilibration and keep her on the Humalog given as 30 units subcutaneously t.i.d. before meals as ordered. We will continue the Levemir given as 70 units subcutaneously at bedtime daily as given. We will titrate incrementally as indicated to optimize metabolic control. We will follow and advise accordingly. Yesika Vogel MD
== END 2018-04-14 14:46 | DRG 40 ==
LOC: H.OPSURG 06:47 → H.ICU/CCU 14:30 → H.MEDSURG1 03-31 16:00 → H.ICU/CCU 04-05 10:03 → H.MEDSURG1 04-07 14:53
PROVIDERS: ADMIT Internal Medicine Pulmonary Disease; ATTEND Internal Medicine Pulmonary Disease
PROC: 0SNG0ZZ Release Left Ankle Joint, Open Approach (ICD-10-PCS; 2018-03-28)
PROC: 5A1935Z Respiratory Ventilation, Less than 24 Consecutive Hours (ICD-10-PCS; 2018-03-28)
PROC: 0BH17EZ Insertion of Endotracheal Airway into Trachea, Via Natural or Artificial Opening (ICD-10-PCS; 2018-03-28)
PROC: 2W3SXYZ Immobilization of Right Foot using Other Device (ICD-10-PCS; 2018-03-28)
PROC: 0L8T0ZZ Division of Left Ankle Tendon, Open Approach (ICD-10-PCS; principal; 2018-03-28 07:45)
PROC: 30233N1 Transfusion of Nonautologous Red Blood Cells into Peripheral Vein, Percutaneous Approach (ICD-10-PCS; 2018-04-06)
DX: E11.610 Type 2 diabetes mellitus with diabetic neuropathic arthropathy (principal); J96.01 Acute respiratory failure with hypoxia; I21.4 Non-ST elevation (NSTEMI) myocardial infarction; I50.43 Acute on chronic combined systolic (congestive) and diastolic (congestive) heart failure; I97.191 Other postprocedural cardiac functional disturbances following other surgery; M86.672 Other chronic osteomyelitis, left ankle and foot; I13.0 Hypertensive heart and chronic kidney disease with heart failure and stage 1 through stage 4 chronic kidney disease, or unspecified chronic kidney disease; L03.116 Cellulitis of left lower limb; E11.65 Type 2 diabetes mellitus with hyperglycemia; E11.51 Type 2 diabetes mellitus with diabetic peripheral angiopathy without gangrene; D63.8 Anemia in other chronic diseases classified elsewhere; N18.9 Chronic kidney disease, unspecified; L97.519 Non-pressure chronic ulcer of other part of right foot with unspecified severity; E11.42 Type 2 diabetes mellitus with diabetic polyneuropathy; E11.22 Type 2 diabetes mellitus with diabetic chronic kidney disease; E11.21 Type 2 diabetes mellitus with diabetic nephropathy; E11.319 Type 2 diabetes mellitus with unspecified diabetic retinopathy without macular edema; G89.4 Chronic pain syndrome; I25.10 Atherosclerotic heart disease of native coronary artery without angina pectoris; E78.5 Hyperlipidemia, unspecified; E78.00 Pure hypercholesterolemia, unspecified; F41.8 Other specified anxiety disorders; Z95.5 Presence of coronary angioplasty implant and graft; Z79.4 Long term (current) use of insulin; Z86.73 Personal history of transient ischemic attack (TIA), and cerebral infarction without residual deficits; Z89.421 Acquired absence of other right toe(s); Y83.8 Other surgical procedures as the cause of abnormal reaction of the patient, or of later complication, without mention of misadventure at the time of the procedure

== ENCOUNTER 2018-06-10 11:09 | Inpatient (IN) | payer OTHER ==
[2018-06-10 11:20] VITALS: BMI 36.0
--- NOTE | 2018-06-10 12:12 | ED PDOC ---
Lower Extremity Pain/Injury Time Seen by Provider: 06/10/18 11:49 Chief Complaint (Nursing): Lower Extremity Problem/Injury Chief Complaint (Provider): foot ulcer History Per: Patient Onset/Duration Of Symptoms: Days (months) Additional Complaint(s): Pt. with chronic foot ulcer on the left foot. Seen by Dr. Macdonald for care. Pt. not improving so will need further inpt. tx. Pt. has pain there. No numbness, tingles, weakness, calf pain. No chest pain, dyspnea. Not on antibiotics at this time. Past Medical History Reviewed: Nursing Documentation, Vital Signs Vital Signs: Last Vital Signs Temp 97.8 F 06/10/18 11:19 Pulse 83 06/10/18 11:19 Resp 20 06/10/18 11:19 BP 136/64 06/10/18 11:19 Pulse Ox 98 06/10/18 11:19 - Medical History PMH: Anemia, Anxiety, Arthritis, Back Problems (herniated disks), CAD, CHF, CVA, Depression, Diabetes, HTN, Hypercholesterolemia, Hyperlipidemia, Peripheral Edema Denies: COPD, Hepatitis, HIV, Hypothyroidism, Chronic Kidney Disease, Rheumatoid Arthritis, Seizures, Sexually Transmitted Disease - Surgical History Surgical History: Appendectomy, Coronary Stent - Family History Family History: States: Unknown Family Hx - Living Arrangements Living Arrangements: With Family - Social History Alcohol: None Drugs: Denies - Immunization History Hx Tetanus Toxoid Vaccination: No Hx Influenza Vaccination: No Hx Pneumococcal Vaccination: No - Home Medications Home Medications: Ambulatory Orders Medication Instructions Recorded Atorvastatin Calcium [Lipitor] 40 mg PO HS 10/22/14 oxyCODONE [oxyCODONE Immediate 30 mg PO Q6H PRN 05/28/15 Release Tab] Morphine Sulfate [Morphine Sulfate 30 mg PO Q12H 03/27/16 ER] Insulin Detemir [Levemir] 70 units SC HS 05/31/17 Insulin Lispro [Humalog (Insulin 30 unit SQ TID 05/31/17 Lispro)] Furosemide [Lasix] 40 mg PO DAILY #30 udc 04/14/18 Clopidogrel [Plavix] 75 mg PO DAILY 06/02/18 Aspirin [Ecotrin] 235 mg PO DAILY 06/10/18 Carvedilol [Coreg] 25 mg PO QID 06/10/18 Folic Acid 1 mg PO DAILY 06/10/18 Hydralazine HCl 100 mg PO TID 06/10/18 Lanthanum Carbonate 500 mg PO TID 06/10/18 amLODIPine [Norvasc] 10 mg PO BID 06/10/18 cloNIDine [Catapres] 0.2 mg PO TID 06/10/18 - Allergies Allergies/Adverse Reactions: Allergies Allergy/AdvReac Type Severity Reaction Status Date / Time No Known Allergies Allergy Verified 06/10/18 11:32 Review of Systems ROS Statement: Except As Marked, All Systems Reviewed And Found Negative Musculoskeletal: Positive for: Foot Pain Skin: Positive for: Lesions Physical Exam - Reviewed Nursing Documentation Reviewed: Yes Vital Signs Reviewed: Yes - Physical Exam Appears: Positive for: Non-toxic, No Acute Distress Head Exam: Positive for: ATRAUMATIC, NORMAL INSPECTION, NORMOCEPHALIC Skin: Positive for: Normal Color, Warm, DRY Eye Exam: Positive for: EOMI, Normal appearance, PERRL ENT: Positive for: Normal ENT Inspection Neck: Positive for: Normal, Painless ROM Cardiovascular/Chest: Positive for: Regular Rate, Rhythm Respiratory: Positive for: CNT, Normal Breath Sounds Pulses-Dorsalis Pedis (L): 2+ Pulses-Dorsalis Pedis (R): 2+ Gastrointestinal/Abdominal: Positive for: Normal Exam, Soft. Negative for: Tenderness Back: Positive for: Normal Inspection. Negative for: L CVA Tenderness, R CVA Tenderness Extremity: Positive for: Tenderness (left foot with mid foot ulcer). Negative for: Normal ROM (limted of the left foot; in external hardware) Neurologic/Psych: Positive for: Alert, Oriented - Laboratory Results Result Diagrams: 06/10/18 12:30 06/10/18 12:30 Interpretation Of Abn Labs: 41 bun - ECG ECG: Positive for: Interpreted By Me, Viewed By Me ECG Rhythm: Positive for: Nonspecific Changes O2 Sat by Pulse Oximetry: 98 Pulse Ox Interpretation: Normal - Radiology X-Ray: Read By Radiologist X-Ray Interpretation: No Acute Disease - Progress ED Course And Treament: 1210: Spoke with podiatry. Will see pt. in the ER and will need admit. Well known to their service. States to give zosyn. Pt. needs further evaluation and possible surgery for foot. Spoke with Dr. Jarrell. Will admit and give further orders when pt. reaches floor. Disposition - Clinical Impression Clinical Impression: Foot ulcer, Foot pain - Patient ED Disposition Is Patient to be Admitted: Yes Counseled Patient/Family Regarding: Studies Performed, Diagnosis - Disposition Disposition Time: 12:00 Condition: FAIR - Pt Status Changed To: Hospital Disposition Of: Inpatient - Admit Certification Admit to Inpatient:: After my assessment, the patient will require hospitalization for at least two midnights. This is because of the severity of symptoms shown, intensity of services needed, and/or the medical risk in this patient being treated as an outpatient. - POA Present On Arrival: Pressure Ulcer (foot)
[2018-06-10 12:46] LABS: VENOUS BLOOD GAS BASE EXCESS 9.2 mmol/L (0.0-2.0); VENOUS BLOOD GAS PCO2 56 mmHg (40-60); VENOUS BLOOD GAS PO2 36 mm/Hg (30-55); VENOUS BLOOD PH 7.41 (7.32-7.43)
[2018-06-10 12:56] LABS: BASO % 0.8 % (0.0-2.0); EOS # 0.1 K/uL (0.0-0.7); EOS % 1.5 % (0.0-4.0); HEMOGLOBIN 10.8 g/dL (12.0-16.0); LYMPH # 1.4 K/uL (1.0-4.3); LYMPH % 23.9 % (20.0-40.0); MEAN CELL VOLUME 82.9 fl (81.0-99.0); MEAN CORPUSCULAR HEMOGLOBIN 28.1 pg (27.0-31.0); MEAN PLATELET VOLUME 7.7 fl (7.2-11.7); MONO # 0.5 K/uL (0.0-0.8); MONO % 8.2 % (0.0-10.0); NEUT # 3.9 K/uL (1.8-7.0); NEUT % 65.6 % (50.0-75.0); RBC 3.84 Mil/uL (3.80-5.20); RED CELL DISTRIBUTION WIDTH 16.5 % (11.5-14.5); WHITE BLOOD COUNT 5.9 K/uL (4.8-10.8)
[2018-06-10 13:01] LABS: PROTHROMBIN TIME 11.4 Seconds (9.8-13.1)
[2018-06-10 13:06] LABS: ALB/GLOB RATIO 1.1 (1.0-2.1); ALBUMIN 4.5 g/dL (3.5-5.0); CALCIUM 10.3 mg/dL (8.4-10.2)
[2018-06-10 13:18] LABS: TROPONIN I 0.017 ng/mL (0.00-0.120)
[2018-06-10] MEDS ORDERED: Oxycodone/Acetaminophen 5/325 mg Tab PO PRN (13:30)
[2018-06-10] MEDS ORDERED: Piperacillin/Tazobact 3.375 gm Inj IVPB ONE (14:31)
[2018-06-10] MEDS: Piperacillin/Tazobact 3.375 GM in Sodium Chloride 0.9% 100 ML IV STA ×2 (14:32→15:37)
[2018-06-10] MEDS: Sodium Chloride 0.9% 500 ML IV STA ×2 (14:33→15:38)
--- NOTE | 2018-06-10 14:33 | RAD ---
Date of service: 06/10/2018 PROCEDURE: Radiographs of the left tibia and fibula. HISTORY: ulcer COMPARISON: None available. TECHNIQUE: Frontal and lateral views obtained. FINDINGS: BONES: No acute fracture. Distal tibia and fibula partially obscured by external fixation hardware. No lytic or blastic osseous lesion. JOINT SPACES: Unremarkable. OTHER FINDINGS: None. IMPRESSION: No acute fracture.
--- NOTE | 2018-06-10 14:35 | RAD ---
Date of service: 06/10/2018 PROCEDURE: Left Ankle Radiographs. HISTORY: ulcer COMPARISON: None available. FINDINGS: BONES: No acute fracture. Limited examination as bones are partially obscured by external fixation hardware. JOINTS: Normal. No osteoarthritis. Ankle mortise maintained. Talar dome intact SOFT TISSUES: Normal. OTHER FINDINGS: None. IMPRESSION: No acute fracture. Limited examination.
--- NOTE | 2018-06-10 14:37 | RAD ---
Date of service: 06/10/2018 PROCEDURE: Left Foot Radiographs. HISTORY: ulcer COMPARISON: 04/13/2018 FINDINGS: BONES: Charcot foot status post external fixation. Fragmentation of tarsal bones with heterogeneous sclerosis. Examination limited by external fixation hardware. No acute fracture appreciated. Findings grossly unchanged from prior examination. JOINTS: Normal. SOFT TISSUES: As above OTHER FINDINGS: None. IMPRESSION: Limited examination. Charcot foot. Status post external fixation. No significant change from 04/13/2018.
--- NOTE | 2018-06-10 14:37 | CP.PCM.HP ---
History of Present Illness - History of Present Illness History of Present Illness: 52 yo patient s/p L foot surgery due to OM and Charcot deformity, with chronic L foot ulcer presents to the ED sent by Dr Macdonald for worsening of the ulcer. Patient c/o pain in L leg but denies numbness, tingles, weakness, calf pain. No chest pain, dyspnea. Afebrile, not on antibiotics at this time. PMD: none provided PMH: HTN, DM, CAD, CHF, chronic back pain, anxiety, anemia. PSH: appendectomy, R transmetatarsal amputation, Charcot deformity in L foot, cardiac stent x2. Meds: as bellow NKDA SH: denies etoh, tobacco or ilicit drugs use Present on Admission - Present on Admission Any Indicators Present on Admission: No Review of Systems - Review of Systems All systems: reviewed and no additional remarkable complaints except (HPI) Past Patient History - Infectious Disease Hx of Infectious Diseases: None - Tetanus Immunizations Tetanus Immunization: Unknown - Past Medical History & Family History Past Medical History?: Yes - Past Social History Alcohol: None Drugs: Denies - CARDIAC Hx Congestive Heart Failure: Yes Hx Hypercholesterolemia: Yes Hx Hypertension: Yes Hx Peripheral Edema: Yes - PULMONARY Hx Chronic Obstructive Pulmonary Disease (COPD): No - NEUROLOGICAL Hx Seizures: No - HEENT Hx HEENT Problems: No - RENAL Hx Chronic Kidney Disease: No - ENDOCRINE/METABOLIC Hx Hypothyroidism: No - HEMATOLOGICAL/ONCOLOGICAL Hx Anemia: Yes Hx Human Immunodeficiency Virus (HIV): No - INTEGUMENTARY Hx Dermatological Problems: Yes Hx Cellulitis: Yes Other/Comment: Gangrene right 2nd toe - MUSCULOSKELETAL/RHEUMATOLOGICAL Hx Arthritis: Yes Hx Rheumatoid Arthritis: No - GASTROINTESTINAL Hx Gastrointestinal Disorders: Yes - GENITOURINARY/GYNECOLOGICAL Hx Sexually Transmitted Disorders: No - PSYCHIATRIC Hx Anxiety: Yes Hx Depression: Yes - SURGICAL HISTORY Hx Appendectomy: Yes Hx Coronary Stent: Yes - ANESTHESIA Hx Anesthesia: Yes Hx Anesthesia Reactions: Yes (CAN'T BREATH-ADMITTED TO ICU) Hx Malignant Hyperthermia: No Meds Allergies/Adverse Reactions: Allergies Allergy/AdvReac Type Severity Reaction Status Date / Time No Known Allergies Allergy Verified 06/10/18 11:32 Physical Exam - Constitutional Appears: No Acute Distress - Head Exam Head Exam: NORMAL INSPECTION - Respiratory Exam Respiratory Exam: Clear to Auscultation Bilateral, NORMAL BREATHING PATTERN - Cardiovascular Exam Cardiovascular Exam: REGULAR RHYTHM, +S1, +S2. absent: Tachycardia - GI/Abdominal Exam GI & Abdominal Exam: Normal Bowel Sounds, Soft. absent: Distended, Tenderness - Extremities Exam Extremities exam: Negative for: calf tenderness Additional comments: L leg hard ortho equipment noted, dressing with some scant discharge ap preciated. - Neurological Exam Neurological exam: Alert, CN II-XII Intact, Oriented x3 - Skin Skin Exam: Dry, Warm Results - Vital Signs Recent Vital Signs: Last Vital Signs Temp 97.8 F 06/10/18 11:19 Pulse 83 06/10/18 11:19 Resp 20 06/10/18 11:19 BP 136/64 06/10/18 11:19 Pulse Ox 98 06/10/18 12:18 - Labs Result Diagrams: 06/10/18 12:30 06/10/18 12:30 Labs: Laboratory Results - last 24 hr 06/10/18 06/10/18 06/10/18 12:05 12:24 12:30 WBC 5.9 RBC 3.84 Hgb 10.8 L Hct 31.8 L MCV 82.9 MCH 28.1 MCHC 34.0 RDW 16.5 H Plt Count 290 MPV 7.7 Neut % (Auto) 65.6 Lymph % (Auto) 23.9 [place] % (Auto) 8.2 Eos % (Auto) 1.5 Baso % (Auto) 0.8 Neut # (Auto) 3.9 Lymph # (Auto) 1.4 [place] # (Auto) 0.5 Eos # (Auto) 0.1 Baso # (Auto) 0.0 PT INR APTT pO2 36 VBG pH 7.41 VBG pCO2 56 VBG HCO3 31.5 VBG Total CO2 37.2 H VBG O2 Sat (Calc) 73.2 H VBG Base Excess 9.2 H VBG Potassium 3.4 L Sodium 141.0 Chloride 101.0 Glucose 94 Lactate 1.5 FiO2 21.0 Potassium Carbon Dioxide Anion Gap BUN Creatinine Est GFR ( Amer) Est GFR (Non-Af Amer) POC Glucose (mg/dL) 78 Random Glucose Calcium Total Bilirubin AST ALT Alkaline Phosphatase Troponin I Total Protein Albumin Globulin Albumin/Globulin Ratio Venous Blood Potassium 3.4 L 06/10/18 06/10/18 12:30 12:30 WBC RBC Hgb Hct MCV MCH MCHC RDW Plt Count MPV Neut % (Auto) Lymph % (Auto) [place] % (Auto) Eos % (Auto) Baso % (Auto) Neut # (Auto) Lymph # (Auto) [place] # (Auto) Eos # (Auto) Baso # (Auto) PT 11.4 INR 1.0 APTT 34.0 pO2 VBG pH VBG pCO2 VBG HCO3 VBG Total CO2 VBG O2 Sat (Calc) VBG Base Excess VBG Potassium Sodium 142 Chloride 98 Glucose Lactate FiO2 Potassium 3.5 L Carbon Dioxide 31 H Anion Gap 17 BUN 41 H Creatinine 1.3 H Est GFR ( Amer) 52 Est GFR (Non-Af Amer) 43 POC Glucose (mg/dL) Random Glucose 95 Calcium 10.3 H Total Bilirubin 0.5 AST 22 ALT 31 Alkaline Phosphatase 106 Troponin I 0.0170 Total Protein 8.7 H Albumin 4.5 Globulin 4.3 H Albumin/Globulin Ratio 1.1 Venous Blood Potassium Assessment & Plan - Assessment and Plan (Free Text) Assessment: 52 yo female patient with significant PMH of chronic ulcer in L leg admitted for evaluation of worsening L leg ulcer plan: - afebrile, VSS - WBC wnl - Cr 1.3, seems to be her baseline - other labs and test reviewed and wnl - f/u ankle and foot xrays - ID consulted, recommendations appreciate - Podiatry consulted, input appreciated - continue vanco and zosyn - f/u labs and cx in am - resumed home meds - rest of plan as ordered Case discussed with Dr Jarrell.
--- NOTE | 2018-06-10 14:37 | RAD ---
Date of service: 06/10/2018 HISTORY: cellulitis COMPARISON: 04/13/2018 FINDINGS: LUNGS: No active pulmonary disease. PLEURA: No significant pleural effusion identified, no pneumothorax apparent. CARDIOVASCULAR: No aortic atherosclerotic calcification present. Normal cardiac size. No pulmonary vascular congestion. OSSEOUS STRUCTURES: No significant abnormalities. VISUALIZED UPPER ABDOMEN: Normal. OTHER FINDINGS: None. IMPRESSION: No active disease.
[2018-06-10] MEDS ORDERED: Oxycodone/Acetaminophen 5/325 mg Tab ONE (15:05)
[2018-06-10] MEDS ORDERED: Morphine 4 MG/ML VIAL ONE (16:25)
[2018-06-10] MEDS ORDERED: Insulin Lispro (humaLOG) 100 Units/ml Inj SC SCH (17:00)
--- NOTE | 2018-06-10 17:15 | CP.PCM.CON ---
History of Present Illness - History of Present Illness History of Present Illness: admitted with worsening diabetic foot ulcer extensive hx started Vanco / zosyn cultures pending Dr Estes on consult Past Patient History - Infectious Disease Hx of Infectious Diseases: None - Tetanus Immunizations Tetanus Immunization: Unknown - Past Medical History & Family History Past Medical History?: Yes - Past Social History Alcohol: None Drugs: Denies - CARDIAC Hx Congestive Heart Failure: Yes Hx Hypercholesterolemia: Yes Hx Hypertension: Yes Hx Peripheral Edema: Yes - PULMONARY Hx Chronic Obstructive Pulmonary Disease (COPD): No - NEUROLOGICAL Hx Seizures: No - HEENT Hx HEENT Problems: No - RENAL Hx Chronic Kidney Disease: No - ENDOCRINE/METABOLIC Hx Hypothyroidism: No - HEMATOLOGICAL/ONCOLOGICAL Hx Anemia: Yes Hx Human Immunodeficiency Virus (HIV): No - INTEGUMENTARY Hx Dermatological Problems: Yes Hx Cellulitis: Yes Other/Comment: Gangrene right 2nd toe - MUSCULOSKELETAL/RHEUMATOLOGICAL Hx Arthritis: Yes Hx Rheumatoid Arthritis: No - GASTROINTESTINAL Hx Gastrointestinal Disorders: Yes - GENITOURINARY/GYNECOLOGICAL Hx Sexually Transmitted Disorders: No - PSYCHIATRIC Hx Anxiety: Yes Hx Depression: Yes - SURGICAL HISTORY Hx Appendectomy: Yes Hx Coronary Stent: Yes - ANESTHESIA Hx Anesthesia: Yes Hx Anesthesia Reactions: Yes (CAN'T BREATH-ADMITTED TO ICU) Hx Malignant Hyperthermia: No Meds Allergies/Adverse Reactions: Allergies Allergy/AdvReac Type Severity Reaction Status Date / Time No Known Allergies Allergy Verified 06/10/18 11:32 - Medications Medications: Current Medications Amlodipine Besylate (Norvasc) 10 mg PO DAILY [facility] Aspirin (Aspirin) 325 mg PO DAILY [facility] Atorvastatin Calcium (Lipitor) 40 mg PO HS [facility] Carvedilol (Coreg) 25 mg PO Q12 [facility] Clonidine HCl (Catapres) 0.2 mg PO TID [facility] Clopidogrel Bisulfate (Plavix) 75 mg PO DAILY [facility] Enoxaparin Sodium (Lovenox) 40 mg SC DAILY [facility]; Protocol Folic Acid (Folic Acid) 1 mg PO DAILY [facility] Hydralazine HCl (Apresoline) 100 mg PO TID [facility] Vancomycin HCl 1 gm/ Sodium (Chloride) 250 mls @ 166.667 mls/hr IVPB Q12 [facility]; Protocol Piperacillin Sod/Tazobactam (Sod 3.375 gm/ Sodium Chloride) 100 mls @ 100 mls/hr IVPB Q6 [facility]; Protocol Insulin Detemir (Levemir) 70 units SC HS [facility] Insulin Human Lispro (Humalog) 30 units SC TID [facility] Lanthanum Carbonate (Fosrenol) 500 mg PO TID [facility] Morphine Sulfate (Morphine) 2 mg IVP Q4 PRN PRN Reason: Pain, severe (8-10) Last Admin: 06/10/18 16:25 Dose: 2 mg Oxycodone/Acetaminophen (Percocet 5/325 Mg Tab) 1 tab PO Q6 PRN PRN Reason: Pain, moderate (4-7) Stop: 06/13/18 13:31 Last Admin: 06/10/18 15:07 Dose: 1 tab Results - Vital Signs Recent Vital Signs: Last Vital Signs Temp 97.9 F 06/10/18 17:05 Pulse 82 06/10/18 17:05 Resp 20 06/10/18 17:05 BP 159/73 H 06/10/18 17:05 Pulse Ox 95 06/10/18 17:05 - Labs Result Diagrams: 06/10/18 12:30 06/10/18 12:30 Labs: Laboratory Results - last 24 hr 06/10/18 06/10/18 06/10/18 12:05 12:24 12:30 WBC 5.9 RBC 3.84 Hgb 10.8 L Hct 31.8 L MCV 82.9 MCH 28.1 MCHC 34.0 RDW 16.5 H Plt Count 290 MPV 7.7 Neut % (Auto) 65.6 Lymph % (Auto) 23.9 [place] % (Auto) 8.2 Eos % (Auto) 1.5 Baso % (Auto) 0.8 Neut # (Auto) 3.9 Lymph # (Auto) 1.4 [place] # (Auto) 0.5 Eos # (Auto) 0.1 Baso # (Auto) 0.0 PT INR APTT pO2 36 VBG pH 7.41 VBG pCO2 56 VBG HCO3 31.5 VBG Total CO2 37.2 H VBG O2 Sat (Calc) 73.2 H VBG Base Excess 9.2 H VBG Potassium 3.4 L Sodium 141.0 Chloride 101.0 Glucose 94 Lactate 1.5 FiO2 21.0 Potassium Carbon Dioxide Anion Gap BUN Creatinine Est GFR ( Amer) Est GFR (Non-Af Amer) POC Glucose (mg/dL) 78 Random Glucose Calcium Total Bilirubin AST ALT Alkaline Phosphatase Troponin I Total Protein Albumin Globulin Albumin/Globulin Ratio Venous Blood Potassium 3.4 L 06/10/18 06/10/18 12:30 12:30 WBC RBC Hgb Hct MCV MCH MCHC RDW Plt Count MPV Neut % (Auto) Lymph % (Auto) [place] % (Auto) Eos % (Auto) Baso % (Auto) Neut # (Auto) Lymph # (Auto) [place] # (Auto) Eos # (Auto) Baso # (Auto) PT 11.4 INR 1.0 APTT 34.0 pO2 VBG pH VBG pCO2 VBG HCO3 VBG Total CO2 VBG O2 Sat (Calc) VBG Base Excess VBG Potassium Sodium 142 Chloride 98 Glucose Lactate FiO2 Potassium 3.5 L Carbon Dioxide 31 H Anion Gap 17 BUN 41 H Creatinine 1.3 H Est GFR ( Amer) 52 Est GFR (Non-Af Amer) 43 POC Glucose (mg/dL) Random Glucose 95 Calcium 10.3 H Total Bilirubin 0.5 AST 22 ALT 31 Alkaline Phosphatase 106 Troponin I 0.0170 Total Protein 8.7 H Albumin 4.5 Globulin 4.3 H Albumin/Globulin Ratio 1.1 Venous Blood Potassium
--- NOTE | 2018-06-10 17:35 | CP.PCM.CON ---
History of Present Illness - History of Present Illness History of Present Illness: Podiatry consult note for Dr. Macdonald, Podiatry progress note for attending Dr. Macdonald: 51 yo female seen and evaluated s/p left foot charcot neuroarthropathy reconstruction with external fixation(03/28). Patient with chronic L foot ulcer sent by Dr Macdonald for worsening of the ulcer. Patient is going through removal of ex fix on Wednesday. Patient c/o pain in L leg but denies numbness, tingles, weakness, calf pain. No chest pain, dyspnea. Afebrile, not on antibiotics at this time. PMD: none provided PMH: HTN, DM, CAD, CHF, chronic back pain, anxiety, anemia. PSH: appendectomy, R transmetatarsal amputation, Charcot deformity in L foot, cardiac stent x2. Meds: as bellow NKDA SH: denies etoh, tobacco or ilicit drugs use Past Patient History - Infectious Disease Hx of Infectious Diseases: None - Tetanus Immunizations Tetanus Immunization: Unknown - Past Medical History & Family History Past Medical History?: Yes - Past Social History Alcohol: None Drugs: Denies - CARDIAC Hx Congestive Heart Failure: Yes Hx Hypercholesterolemia: Yes Hx Hypertension: Yes Hx Peripheral Edema: Yes - PULMONARY Hx Chronic Obstructive Pulmonary Disease (COPD): No - NEUROLOGICAL Hx Seizures: No - HEENT Hx HEENT Problems: No - RENAL Hx Chronic Kidney Disease: No - ENDOCRINE/METABOLIC Hx Hypothyroidism: No - HEMATOLOGICAL/ONCOLOGICAL Hx Anemia: Yes Hx Human Immunodeficiency Virus (HIV): No - INTEGUMENTARY Hx Dermatological Problems: Yes Hx Cellulitis: Yes Other/Comment: Gangrene right 2nd toe - MUSCULOSKELETAL/RHEUMATOLOGICAL Hx Arthritis: Yes Hx Rheumatoid Arthritis: No - GASTROINTESTINAL Hx Gastrointestinal Disorders: Yes - GENITOURINARY/GYNECOLOGICAL Hx Sexually Transmitted Disorders: No - PSYCHIATRIC Hx Anxiety: Yes Hx Depression: Yes - SURGICAL HISTORY Hx Appendectomy: Yes Hx Coronary Stent: Yes - ANESTHESIA Hx Anesthesia: Yes Hx Anesthesia Reactions: Yes (CAN'T BREATH-ADMITTED TO ICU) Hx Malignant Hyperthermia: No Meds Allergies/Adverse Reactions: Allergies Allergy/AdvReac Type Severity Reaction Status Date / Time No Known Allergies Allergy Verified 06/10/18 11:32 - Medications Medications: Current Medications Amlodipine Besylate (Norvasc) 10 mg PO DAILY [facility] Aspirin (Aspirin) 325 mg PO DAILY [facility] Atorvastatin Calcium (Lipitor) 40 mg PO HS [facility] Carvedilol (Coreg) 25 mg PO Q12 [facility] Clonidine HCl (Catapres) 0.2 mg PO TID [facility] Clopidogrel Bisulfate (Plavix) 75 mg PO DAILY [facility] Enoxaparin Sodium (Lovenox) 40 mg SC DAILY [facility]; Protocol Folic Acid (Folic Acid) 1 mg PO DAILY [facility] Hydralazine HCl (Apresoline) 100 mg PO TID [facility] Vancomycin HCl 1 gm/ Sodium (Chloride) 250 mls @ 166.667 mls/hr IVPB Q12 [facility]; Protocol Piperacillin Sod/Tazobactam (Sod 3.375 gm/ Sodium Chloride) 100 mls @ 100 mls/hr IVPB Q6 [facility]; Protocol Insulin Detemir (Levemir) 70 units SC HS [facility] Insulin Human Lispro (Humalog) 30 units SC TID [facility] Lanthanum Carbonate (Fosrenol) 500 mg PO TID [facility] Morphine Sulfate (Morphine) 2 mg IVP Q4 PRN PRN Reason: Pain, severe (8-10) Last Admin: 06/10/18 16:25 Dose: 2 mg Oxycodone/Acetaminophen (Percocet 5/325 Mg Tab) 1 tab PO Q6 PRN PRN Reason: Pain, moderate (4-7) Stop: 06/13/18 13:31 Last Admin: 06/10/18 15:07 Dose: 1 tab Physical Exam - Constitutional Appears: Well, Non-toxic - Head Exam Head Exam: ATRAUMATIC - Extremities Exam Additional comments: Vasc: DP/PT pulses palpable 1/4 on the right. Unable to assess DP/PT to left secondary to obstruction from external fixation device, cap refill on left foot <3 to all digits, refill time to distal right foot WNL, mild edema present about the surgery sites with pin placement. Neuro: protective sensation absent bilaterally, gross protective sensation intact bilaterally Derm: dressing clean and dry without strike-through, no drainage, suture sites with skin well reapproximated and coapted with no signs of dehiscence noted, no malodor or pus, pin sites are clean with minimal sanguineous drainage, no erythema, no streaking, no fluctanance, no clinical signs of infection bilaterally Right: Ulceration, now hyperkeratotic, healed noted to plantar midfoot on the right. No malodor, No drainage. no tracking, undermining or probing to bone, no purulence, no fluctuance or abscess noted. Medial aspect of lower 1/3 with small superfical abrasion secondary to patient hitting right leg on left lower extremity external fixator. 100% granular base with no clinical signs of infection MSK: pain on palpation about the left lower leg and surgery sites; external fixation limits any motion at the left lower extremity. No pain on palpating the right foot ulcer. - Neurological Exam Neurological exam: Alert, Oriented x3 - Psychiatric Exam Psychiatric exam: Normal Affect - Skin Skin Exam: Normal Color Results - Vital Signs Recent Vital Signs: Last Vital Signs Temp 97.9 F 06/10/18 17:05 Pulse 82 06/10/18 17:05 Resp 20 06/10/18 17:05 BP 159/73 H 06/10/18 17:05 Pulse Ox 95 06/10/18 17:05 - Labs Result Diagrams: 06/11/18 05:30 06/11/18 05:30 Labs: Laboratory Results - last 24 hr 06/10/18 06/10/18 06/10/18 12:05 12:24 12:30 WBC 5.9 RBC 3.84 Hgb 10.8 L Hct 31.8 L MCV 82.9 MCH 28.1 MCHC 34.0 RDW 16.5 H Plt Count 290 MPV 7.7 Neut % (Auto) 65.6 Lymph % (Auto) 23.9 [place] % (Auto) 8.2 Eos % (Auto) 1.5 Baso % (Auto) 0.8 Neut # (Auto) 3.9 Lymph # (Auto) 1.4 [place] # (Auto) 0.5 Eos # (Auto) 0.1 Baso # (Auto) 0.0 PT INR APTT pO2 36 VBG pH 7.41 VBG pCO2 56 VBG HCO3 31.5 VBG Total CO2 37.2 H VBG O2 Sat (Calc) 73.2 H VBG Base Excess 9.2 H VBG Potassium 3.4 L Sodium 141.0 Chloride 101.0 Glucose 94 Lactate 1.5 FiO2 21.0 Potassium Carbon Dioxide Anion Gap BUN Creatinine Est GFR ( Amer) Est GFR (Non-Af Amer) POC Glucose (mg/dL) 78 Random Glucose Calcium Total Bilirubin AST ALT Alkaline Phosphatase Troponin I Total Protein Albumin Globulin Albumin/Globulin Ratio Venous Blood Potassium 3.4 L 06/10/18 06/10/18 06/10/18 12:30 12:30 17:26 WBC RBC Hgb Hct MCV MCH MCHC RDW Plt Count MPV Neut % (Auto) Lymph % (Auto) [place] % (Auto) Eos % (Auto) Baso % (Auto) Neut # (Auto) Lymph # (Auto) [place] # (Auto) Eos # (Auto) Baso # (Auto) PT 11.4 INR 1.0 APTT 34.0 pO2 VBG pH VBG pCO2 VBG HCO3 VBG Total CO2 VBG O2 Sat (Calc) VBG Base Excess VBG Potassium Sodium 142 Chloride 98 Glucose Lactate FiO2 Potassium 3.5 L Carbon Dioxide 31 H Anion Gap 17 BUN 41 H Creatinine 1.3 H Est GFR ( Amer) 52 Est GFR (Non-Af Amer) 43 POC Glucose (mg/dL) 201 H Random Glucose 95 Calcium 10.3 H Total Bilirubin 0.5 AST 22 ALT 31 Alkaline Phosphatase 106 Troponin I 0.0170 Total Protein 8.7 H Albumin 4.5 Globulin 4.3 H Albumin/Globulin Ratio 1.1 Venous Blood Potassium Assessment & Plan - Assessment and Plan (Free Text) Assessment: 52 y/o female 2.5 months s/p left foot charcot neuroarthropathy reconstruction using external fixation device(03/28) Plan: Patient seen and evaluated at the bedside Discussed in detail with Dr. Macdonald Charts and labs reviewed: afebrile and absent leukocytosis Patient bilateral dressings were changed. -Right- Dry sterile dressing with 4X4 gauze, ABD pad and Kerlix. -Left- Cleansed entire site and external fixation with saline solution, pat dry, xeroform and gauze at every pin site, with cling, and HELGA X-rays left foot/ankle and tib-fib- increased consolidation and stable postoperative findings ID on board, recs appreciated Continue IV Antibiotics Plan: Patient scheduled for OR on Wednesday morning for removal of external fixator. Please provide medical and cardiac clearance. Patient will be under very light anesthesia thank you for the consult Podiatry will continue to follow up patient while in house
[2018-06-10] MEDS: Piperacillin/Tazobact 3.375 GM in Sodium Chloride 0.9% 100 ML IVPB SCH ×2 (18:01→21:25)
--- NOTE | 2018-06-10 18:31 | CARD ---
APPROVED REPORT Date of service: 06/10/2018 EKG Measurement Heart [id number] <Conclusion> Normal sinus rhythm Septal infarct, age undetermined ST & T wave abnormality, consider lateral ischemia Abnormal ECG
[2018-06-10] MEDS ORDERED: Piperacillin/Tazobact 3.375 GM in Sodium Chloride 0.9% 100 ML IVPB SCH (21:00)
[2018-06-10] MEDS: Morphine 4 MG/ML VIAL IVP PRN (21:40)
[2018-06-10] MEDS: Insulin Detemir 100 Units/ml Inj SC SCH (22:47)
[2018-06-11] MEDS ORDERED: Morphine 4 MG/ML VIAL IVP ONE (00:56)
[2018-06-11] MEDS ORDERED: oxyCODONE 10 mg Immediate Release Tab PO ONE (03:49)
[2018-06-11] MEDS: Piperacillin/Tazobact 3.375 GM in Sodium Chloride 0.9% 100 ML IVPB SCH ×4 (03:58→22:39)
[2018-06-11 07:07] LABS: BASO % 0.6 % (0.0-2.0); EOS # 0.1 K/uL (0.0-0.7); EOS % 1.3 % (0.0-4.0); HEMOGLOBIN 10.3 g/dL (12.0-16.0); LYMPH # 1.1 K/uL (1.0-4.3); LYMPH % 17.7 % (20.0-40.0); MEAN CELL VOLUME 83.1 fl (81.0-99.0); MEAN CORPUSCULAR HEMOGLOBIN 28.2 pg (27.0-31.0); MEAN CORPUSCULAR HGB CONC 33.9 g/dL (33.0-37.0); MONO # 0.5 K/uL (0.0-0.8); MONO % 8.3 % (0.0-10.0); NEUT # 4.5 K/uL (1.8-7.0); NEUT % 72.1 % (50.0-75.0); NRBC % 0.1 % (0.0-0.0); RBC 3.66 Mil/uL (3.80-5.20); RED CELL DISTRIBUTION WIDTH 16.7 % (11.5-14.5); WHITE BLOOD COUNT 6.3 K/uL (4.8-10.8)
[2018-06-11 07:23] LABS: ALB/GLOB RATIO 1.1 (1.0-2.1); CALCIUM 9.7 mg/dL (8.4-10.2)
[2018-06-11] MEDS: Enoxaparin 40 mg Syringe SC SCH (08:32)
[2018-06-11] MEDS: Insulin Regular 100 units/ml SC SCH ×3 (08:35→17:12)
[2018-06-11] MEDS ORDERED: Potassium Chloride 20 mEq ER Tab PO ONE (09:00)
[2018-06-11] MEDS ORDERED: Enoxaparin 30 mg Syringe SC SCH (09:00)
[2018-06-11] MEDS: Morphine 4 MG/ML VIAL IVP PRN (10:36)
--- NOTE | 2018-06-11 11:45 | CP.PCM.CON ---
History of Present Illness - History of Present Illness History of Present Illness: Patient is well known to me from previous admissions. She's tentatively scheduled for removal of ex-fix. She was told by the surgical team that the plan is for regiona anesthesia as she had a post-op SC after GETA for the previous surgery. She had gone into flash pulmonary edema post-op in the PACU, requiring re-intubation. Recently, while at rehab, she had to be [facility] to [facility] for CH[facility]. She last took Plavix yesterday. At home she's on MS Contin 30mg q12h and Roxicodone 30mg q4-6 PRN. Past Patient History - Infectious Disease Hx of Infectious Diseases: None - Tetanus Immunizations Tetanus Immunization: Unknown - Past Medical History & Family History Past Medical History?: Yes - Past Social History Smoking Status: Never Smoked - CARDIAC Hx Congestive Heart Failure: Yes Hx Hypercholesterolemia: Yes Hx Hypertension: Yes Hx Peripheral Edema: Yes - PULMONARY Hx Chronic Obstructive Pulmonary Disease (COPD): No - NEUROLOGICAL Hx Seizures: No - HEENT Hx HEENT Problems: No - RENAL Hx Chronic Kidney Disease: No - ENDOCRINE/METABOLIC Hx Hypothyroidism: No - HEMATOLOGICAL/ONCOLOGICAL Hx AIDS: No (denies) Hx Anemia: Yes Hx Human Immunodeficiency Virus (HIV): No (denies) - INTEGUMENTARY Hx Dermatological Problems: Yes Hx Cellulitis: Yes Other/Comment: Gangrene right 2nd toe - MUSCULOSKELETAL/RHEUMATOLOGICAL Hx Falls: No - GASTROINTESTINAL Hx Gastrointestinal Disorders: Yes - GENITOURINARY/GYNECOLOGICAL Hx Sexually Transmitted Disorders: No - PSYCHIATRIC Hx Substance Use: No (denies) - SURGICAL HISTORY Hx Appendectomy: Yes Hx Coronary Stent: Yes - ANESTHESIA Hx Anesthesia: Yes Hx Anesthesia Reactions: Yes (CAN'T BREATH-ADMITTED TO ICU) Hx Malignant Hyperthermia: No Meds Allergies/Adverse Reactions: Allergies Allergy/AdvReac Type Severity Reaction Status Date / Time No Known Allergies Allergy Verified 06/10/18 11:32 - Medications Medications: Current Medications Amlodipine Besylate (Norvasc) 10 mg PO DAILY [facility] Last Admin: 06/11/18 08:33 Dose: 10 mg Aspirin (Aspirin) 325 mg PO DAILY [facility] Last Admin: 06/11/18 08:29 Dose: 325 mg Atorvastatin Calcium (Lipitor) 40 mg PO HS [facility] Last Admin: 06/10/18 22:46 Dose: 40 mg Carvedilol (Coreg) 25 mg PO Q12 [facility] Last Admin: 06/11/18 08:33 Dose: 25 mg Clonidine HCl (Catapres) 0.2 mg PO TID [facility] Last Admin: 06/11/18 08:34 Dose: 0.2 mg Enoxaparin Sodium (Lovenox) 40 mg SC DAILY [facility]; Protocol Last Admin: 06/11/18 08:32 Dose: 40 mg Folic Acid (Folic Acid) 1 mg PO DAILY [facility] Last Admin: 06/11/18 08:34 Dose: 1 mg Hydralazine HCl (Apresoline) 100 mg PO TID [facility] Last Admin: 06/11/18 08:32 Dose: 100 mg Vancomycin HCl 1 gm/ Sodium (Chloride) 250 mls @ 166.667 mls/hr IVPB Q12 [facility]; Protocol Last Admin: 06/11/18 08:33 Dose: 166.667 mls/hr Piperacillin Sod/Tazobactam (Sod 3.375 gm/ Sodium Chloride) 100 mls @ 100 mls/hr IVPB Q6 [facility]; Protocol Last Admin: 06/11/18 10:31 Dose: 100 mls/hr Insulin Detemir (Levemir) 70 units SC [facility] Last Admin: 06/10/18 22:47 Dose: 70 u Insulin Human Regular (Humulin R) 30 units SC TID [facility] Last Admin: 06/11/18 08:35 Dose: 30 units Lanthanum Carbonate (Fosrenol) 500 mg PO TID [facility] Last Admin: 06/11/18 08:32 Dose: 500 mg Morphine Sulfate (Morphine) 2 mg IVP Q4 PRN PRN Reason: Pain, severe (8-10) Last Admin: 06/11/18 10:36 Dose: 2 mg Oxycodone/Acetaminophen (Percocet 5/325 Mg Tab) 1 tab PO Q6 PRN PRN Reason: Pain, moderate (4-7) Stop: 06/13/18 13:31 Last Admin: 06/10/18 15:07 Dose: 1 tab Physical Exam - Extremities Exam Extremities exam: Positive for: tenderness Additional comments: Bandage intact, ex-fix intact. Results - Vital Signs Recent Vital Signs: Last Vital Signs Temp 98.1 F 06/11/18 08:43 Pulse 80 06/11/18 08:43 Resp 20 06/11/18 08:43 BP 145/87 06/11/18 08:43 Pulse Ox 95 06/11/18 08:43 - Labs Result Diagrams: 06/11/18 05:30 06/11/18 05:30 Labs: Laboratory Results - last 24 hr 06/10/18 06/10/18 06/10/18 12:05 12:24 12:30 WBC 5.9 RBC 3.84 Hgb 10.8 L Hct 31.8 L MCV 82.9 MCH 28.1 MCHC 34.0 RDW 16.5 H Plt Count 290 MPV 7.7 Neut % (Auto) 65.6 Lymph % (Auto) 23.9 [place] % (Auto) 8.2 Eos % (Auto) 1.5 Baso % (Auto) 0.8 Neut # (Auto) 3.9 Lymph # (Auto) 1.4 [place] # (Auto) 0.5 Eos # (Auto) 0.1 Baso # (Auto) 0.0 PT INR APTT pO2 36 VBG pH 7.41 VBG pCO2 56 VBG HCO3 31.5 VBG Total CO2 37.2 H VBG O2 Sat (Calc) 73.2 H VBG Base Excess 9.2 H VBG Potassium 3.4 L Sodium 141.0 Chloride 101.0 Glucose 94 Lactate 1.5 FiO2 21.0 Potassium Carbon Dioxide Anion Gap BUN Creatinine Est GFR ( Amer) Est GFR (Non-Af Amer) POC Glucose (mg/dL) 78 Random Glucose Calcium Total Bilirubin AST ALT Alkaline Phosphatase Troponin I Total Protein Albumin Globulin Albumin/Globulin Ratio Venous Blood Potassium 3.4 L 06/10/18 06/10/18 06/10/18 12:30 12:30 17:26 WBC RBC Hgb Hct MCV MCH MCHC RDW Plt Count MPV Neut % (Auto) Lymph % (Auto) [place] % (Auto) Eos % (Auto) Baso % (Auto) Neut # (Auto) Lymph # (Auto) [place] # (Auto) Eos # (Auto) Baso # (Auto) PT 11.4 INR 1.0 APTT 34.0 pO2 VBG pH VBG pCO2 VBG HCO3 VBG Total CO2 VBG O2 Sat (Calc) VBG Base Excess VBG Potassium Sodium 142 Chloride 98 Glucose Lactate FiO2 Potassium 3.5 L Carbon Dioxide 31 H Anion Gap 17 BUN 41 H Creatinine 1.3 H Est GFR ( Amer) 52 Est GFR (Non-Af Amer) 43 POC Glucose (mg/dL) 201 H Random Glucose 95 Calcium 10.3 H Total Bilirubin 0.5 AST 22 ALT 31 Alkaline Phosphatase 106 Troponin I 0.0170 Total Protein 8.7 H Albumin 4.5 Globulin 4.3 H Albumin/Globulin Ratio 1.1 Venous Blood Potassium 06/10/18 06/11/18 06/11/18 20:25 05:30 05:30 WBC 6.3 RBC 3.66 L Hgb 10.3 L Hct 30.4 L MCV 83.1 MCH 28.2 MCHC 33.9 RDW 16.7 H Plt Count 286 MPV 8.0 Neut % (Auto) 72.1 Lymph % (Auto) 17.7 L [place] % (Auto) 8.3 Eos % (Auto) 1.3 Baso % (Auto) 0.6 Neut # (Auto) 4.5 Lymph # (Auto) 1.1 [place] # (Auto) 0.5 Eos # (Auto) 0.1 Baso # (Auto) 0.0 PT INR APTT pO2 VBG pH VBG pCO2 VBG HCO3 VBG Total CO2 VBG O2 Sat (Calc) VBG Base Excess VBG Potassium Sodium 141 Chloride 98 Glucose Lactate FiO2 Potassium 4.1 Carbon Dioxide 30 Anion Gap 17 BUN 40 H Creatinine 1.4 H Est GFR ( Amer) 48 Est GFR (Non-Af Amer) 39 POC Glucose (mg/dL) 228 H Random Glucose 234 H Calcium 9.7 Total Bilirubin 0.4 AST 25 ALT 24 Alkaline Phosphatase 86 Troponin I Total Protein 7.7 Albumin 4.0 Globulin 3.7 Albumin/Globulin Ratio 1.1 Venous Blood Potassium 06/11/18 07:22 WBC RBC Hgb Hct MCV MCH MCHC RDW Plt Count MPV Neut % (Auto) Lymph % (Auto) [place] % (Auto) Eos % (Auto) Baso % (Auto) Neut # (Auto) Lymph # (Auto) [place] # (Auto) Eos # (Auto) Baso # (Auto) PT INR APTT pO2 VBG pH VBG pCO2 VBG HCO3 VBG Total CO2 VBG O2 Sat (Calc) VBG Base Excess VBG Potassium Sodium Chloride Glucose Lactate FiO2 Potassium Carbon Dioxide Anion Gap BUN Creatinine Est GFR ( Amer) Est GFR (Non-Af Amer) POC Glucose (mg/dL) 235 H Random Glucose Calcium Total Bilirubin AST ALT Alkaline Phosphatase Troponin I Total Protein Albumin Globulin Albumin/Globulin Ratio Venous Blood Potassium Assessment & Plan - Assessment and Plan (Free Text) Assessment: 52 yo woman w/ chronic pain has left charcot foot, s/p ex-fix application with post-op SC, also with recent CHF exacerbation. Last took Plavix yesterday, for removal of ex-fix. - cardiology consult for clearance, re: recent CHF exacerbation - should wait 5-7 days for surgery due to Plavix, unless it's an emergency - anesthesia should be regional block + light GA or MAC - for pain management, continue home meds of MS contin, d/c Pecocet, start Dilaudid 2mg IV PRN
--- NOTE | 2018-06-11 12:11 | PN ---
DATE: 06/11/2018 SUBJECTIVE: The patient seen and examined. Interim events noted. Consults noted and appreciated. Podiatry and Infectious Diseases followup and intervention noted and appreciated. The patient remains in regular medical floor. Complains of chronic pain from herniated disc, not controlled with current pain medication. No chest pain. No shortness of breath. PHYSICAL EXAMINATION: GENERAL: The patient is in no acute distress. VITAL SIGNS: Stable. Temperature 98.1, pulse 81, respirations 20, blood pressure 145/76. HEART: S1, S2, normal, regular. LUNGS: Good bilateral air exchange. ABDOMEN: Soft, nontender. EXTREMITIES: The patient's left lower extremity is under surgical dressing. No sign of distal complication. No edema. No calf swelling. No tenderness. No acute ischemia. CENTRAL NERVOUS SYSTEM: Essentially unchanged. DIAGNOSTIC DATA: Available diagnostic data reviewed. WBC 6.3, hemoglobin 10.3, hematocrit 30.4, platelets 286. Sodium 141, potassium 4.1, chloride 98, bicarb 30, BUN 40, creatinine 1.4. Accu-Checks are 201, 228, 235. ASSESSMENT AND PLAN: Overall, the patient is clinically stable. Awaiting Cardiology consult. Plan as ordered. Tushar Jarrell MD
--- NOTE | 2018-06-11 12:53 | CP.PCM.CON ---
History of Present Illness - History of Present Illness History of Present Illness: 51 yo female seen and evaluated s/p left foot charcot arthropathy reconstruction with external fixation (03/28). Admitted with chronic ulcers In need of hardware removel Patient with chronic L foot ulcer sent by Dr Macdonald for worsening of the ulcer. Patient c/o pain in L leg but denies numbness, tingles, weakness, calf pain. No chest pain, dyspnea. Afebrile, Will require regional anesthesia as she had a post-op SD after GETA for the previous surgery. She had gone into flash pulmonary edema post-op in the PACU, requiring re-intubation. Recently, while at rehab, she had to be transferred to [facility] for CHF again. She last took Plavix yesterday. PMH: HTN, DM, CAD, CHF, severe cardiomyopathy chronic back pain, anxiety, anemia. PSH: appendectomy, R transmetatarsal amputation, Charcot deformity in L foot, cardiac stent x2. Meds: At home she's on MS Contin 30mg q12h and Roxicodone 30mg q4-6 PRN. NKDA SH: denies etoh, tobacco or ilicit drugs use Review of Systems - Review of Systems Review of Systems: - Constitutional Constitutional: As Per HPI - EENT Eyes: absent: As Per HPI, Blind Spots, Blurred Vision, Change in Vision, Decreased Night Vision, Diplopia, Discharge, Dry Eye, Exophthalmos, Floaters, Irritation, Itchy Eyes, Loss of Peripheral Vision, Pain, Photophobia, Requires Corrective Lenses, Sees Flashes, Spots in Vision, Tunnel Vision, Other Visual D isturbances, Loss of Vision, Other Ears: absent: As Per HPI, Decreased Hearing, Ear Discharge, Ear Pain, Tinnitus, Abnormal Hearing, Disequilibrium, Dizziness, Other Nose/Mouth/Throat: absent: As Per HPI, Epistaxis, Nasal Congestion, Nasal Discharge, Nasal Obstruction, Nasal Trauma, Nose Pain, Post Nasal Drip, Sinus Pain, Sinus Pressure, Bleeding Gums, Change in Voice, Dental Pain, Dry Mouth, Dysphagia, Halitosis, Hoarsness, Lip Swelling, Mouth Lesions, Mouth Pain, Odynophagia, Sore Throat, Throat Swelling, Tongue Swelling, Facial Pain, Neck Pa in, Neck Mass, Other - Cardiovascular Cardiovascular: As Per HPI - Respiratory Respiratory: As Per HPI, Dyspnea - Gastrointestinal Gastrointestinal: absent: As Per HPI, Abdominal Pain, Belching, Bloating, Change in Bowel Habits, Change in Stool Character, Coffee Ground Emesis, Constipation, Cramping, Diarrhea, Dyspepsia, Dysphagia, Early Satiety, Excessive Flatus, Fecal Incontinence, Heartburn, Hematemesis, Hematochezia, Loose Stools, Melena, Nausea, Odynophagia, Temesmus, Vomiting, Other - Genitourinary Genitourinary: absent: As Per HPI, Change in Urinary Stream, Difficulty Urinating, Dysuria, Flank Pain, Hematuria, Pyuria, Nocturia, Urinary Incontinence, Urinary Frequency, Urinary Hesitance, Urinary Urgency, Voiding Freq/Small Amts, Freq UTI, Hx Renal/Bladder Calculi, Hx /Renal Surgery, Bladder Distension, Other - Musculoskeletal Musculoskeletal: As Per HPI - Integumentary Integumentary: As Per HPI - Neurological Neurological: absent: As Per HPI, Abnormal Gait, Abnormal Hearing, Abnormal Movements, Abnormal Speech, Behavioral Changes, Burning Sensations, Confusion, Convulsions, Disequilibrium, Dizziness, Numbness, Focal Weakness, Frequent Falls, Headaches, Lack of Coordination, Loss of Vision, Memory Loss, Paresthesias, Radicular Pain, Restless Legs, Sensory Deficit, Syncope, Tingling, Tremor, Vertigo, Weakness, Other Visual Disturbances, Other - Psychiatric Psychiatric: absent: As Per HPI, Abnormal Sleep Pattern, Anhedonia, Anxiety, Auditory Hallucinations, Behavioral Changes, Change in Appetite, Change in Libido, Confusion, Depression, Difficulty Concentrating, Hallucinations, Homicidal Ideation, Hopelessness, Irritability, Memory Loss, Mood Swings, Panic Attacks, Paranoia, Suicidal Ideation, Visual Hallucinations, Tactile Hallucinations, Other - Endocrine Endocrine: absent: As Per HPI, Change in Body Appearance, Change in Libido, Cold Intolorance, Deepening of Voice, Excessive Sweating, Fatigue, Flushing, Heat Intolorance, Increase in Ring/Shoe/Hat Size, Palpitations, Polydipsia, Polyphagia, Polyuria, Other - Hematologic/Lymphatic Hematologic: absent: As Per HPI, Easy Bleeding, Easy Bruising, Lymphadenopathy, Other Past Patient History - Infectious Disease Hx of Infectious Diseases: None - Tetanus Immunizations Tetanus Immunization: Unknown - Past Medical History & Family History Past Medical History?: Yes - Past Social History Smoking Status: Never Smoked - CARDIAC Hx Congestive Heart Failure: Yes Hx Hypercholesterolemia: Yes Hx Hypertension: Yes Hx Peripheral Edema: Yes - PULMONARY Hx Chronic Obstructive Pulmonary Disease (COPD): No - NEUROLOGICAL Hx Seizures: No - HEENT Hx HEENT Problems: No - RENAL Hx Chronic Kidney Disease: No - ENDOCRINE/METABOLIC Hx Hypothyroidism: No - HEMATOLOGICAL/ONCOLOGICAL Hx AIDS: No (denies) Hx Anemia: Yes Hx Human Immunodeficiency Virus (HIV): No (denies) - INTEGUMENTARY Hx Dermatological Problems: Yes Hx Cellulitis: Yes Other/Comment: Gangrene right 2nd toe - MUSCULOSKELETAL/RHEUMATOLOGICAL Hx Falls: No - GASTROINTESTINAL Hx Gastrointestinal Disorders: Yes - GENITOURINARY/GYNECOLOGICAL Hx Sexually Transmitted Disorders: No - PSYCHIATRIC Hx Substance Use: No (denies) - SURGICAL HISTORY Hx Appendectomy: Yes Hx Coronary Stent: Yes - ANESTHESIA Hx Anesthesia: Yes Hx Anesthesia Reactions: Yes (CAN'T BREATH-ADMITTED TO ICU) Hx Malignant Hyperthermia: No Meds Allergies/Adverse Reactions: Allergies Allergy/AdvReac Type Severity Reaction Status Date / Time No Known Allergies Allergy Verified 06/10/18 11:32 - Medications Medications: Current Medications Amlodipine Besylate (Norvasc) 10 mg PO DAILY [facility] Last Admin: 06/11/18 08:33 Dose: 10 mg Aspirin (Aspirin) 325 mg PO DAILY [facility] Last Admin: 06/11/18 08:29 Dose: 325 mg Atorvastatin Calcium (Lipitor) 40 mg PO HS [facility] Last Admin: 06/10/18 22:46 Dose: 40 mg Carvedilol (Coreg) 25 mg PO Q12 [facility] Last Admin: 06/11/18 08:33 Dose: 25 mg Clonidine HCl (Catapres) 0.2 mg PO TID [facility] Last Admin: 06/11/18 12:48 Dose: 0.2 mg Enoxaparin Sodium (Lovenox) 40 mg SC DAILY [facility]; Protocol Last Admin: 06/11/18 08:32 Dose: 40 mg Folic Acid (Folic Acid) 1 mg PO DAILY [facility] Last Admin: 06/11/18 08:34 Dose: 1 mg Hydralazine HCl (Apresoline) 100 mg PO TID [facility] Last Admin: 06/11/18 12:48 Dose: 100 mg Hydromorphone HCl (Dilaudid) 2 mg IVP Q6 PRN PRN Reason: Pain, severe (8-10) Vancomycin HCl 1 gm/ Sodium (Chloride) 250 mls @ 166.667 mls/hr IVPB Q12 [facility]; Protocol Last Admin: 06/11/18 08:33 Dose: 166.667 mls/hr Piperacillin Sod/Tazobactam (Sod 3.375 gm/ Sodium Chloride) 100 mls @ 100 mls/hr IVPB Q6 [facility]; Protocol Last Admin: 06/11/18 10:31 Dose: 100 mls/hr Insulin Detemir (Levemir) 70 units SC HS [facility] Last Admin: 06/10/18 22:47 Dose: 70 u Insulin Human Regular (Humulin R) 30 units SC TID [facility] Last Admin: 06/11/18 12:50 Dose: 30 units Lanthanum Carbonate (Fosrenol) 500 mg PO TID [facility] Last Admin: 06/11/18 12:49 Dose: 500 mg Morphine Sulfate (Morphine Extended Release Tab) 30 mg PO Q12 [facility] Physical Exam - Constitutional Appears: No Acute Distress, Chronically Ill - Head Exam Head Exam: ATRAUMATIC, NORMOCEPHALIC - Eye Exam Eye Exam: absent: Scleral icterus - ENT Exam ENT Exam: Mucous Membranes Dry - Neck Exam Neck exam: Negative for: Lymphadenopathy - Respiratory Exam Respiratory Exam: Decreased Breath Sounds - Cardiovascular Exam Cardiovascular Exam: REGULAR RHYTHM, +S1, +S2 - GI/Abdominal Exam GI & Abdominal Exam: Diminished Bowel Sounds, Soft. absent: Tenderness - Rectal Exam Rectal Exam: Deferred - Exam Exam: NORMAL INSPECTION - Extremities Exam Extremities exam: Positive for: pedal edema. Negative for: calf tenderness, pedal pulses present Additional comments: Right TMA left foot ext fixator - Back Exam Back exam: absent: CVA tenderness (L), CVA tenderness (R) - Neurological Exam Neurological exam: Alert, CN II-XII Intact, Oriented x3, Reflexes Normal - Psychiatric Exam Psychiatric exam: Normal Mood - Skin Skin Exam: Dry Results - Vital Signs Recent Vital Signs: Last Vital Signs Temp 98.1 F 06/11/18 08:43 Pulse 83 06/11/18 12:48 Resp 20 06/11/18 08:43 BP 139/67 06/11/18 12:48 Pulse Ox 95 06/11/18 08:43 - Labs Result Diagrams: 06/11/18 05:30 06/11/18 05:30 Labs: Laboratory Results - last 24 hr 11/23/18 11/23/18 11/23/18 12:30 12:30 12:30 WBC 5.9 RBC 3.84 Hgb 10.8 L Hct 31.8 L MCV 82.9 MCH 28.1 MCHC 34.0 RDW 16.5 H Plt Count 290 MPV 7.7 Neut % (Auto) 65.6 Lymph % (Auto) 23.9 [place] % (Auto) 8.2 Eos % (Auto) 1.5 Baso % (Auto) 0.8 Neut # (Auto) 3.9 Lymph # (Auto) 1.4 [place] # (Auto) 0.5 Eos # (Auto) 0.1 Baso # (Auto) 0.0 PT 11.4 INR 1.0 APTT 34.0 Sodium 142 Potassium 3.5 L Chloride 98 Carbon Dioxide 31 H Anion Gap 17 BUN 41 H Creatinine 1.3 H Est GFR ( Amer) 52 Est GFR (Non-Af Amer) 43 POC Glucose (mg/dL) Random Glucose 95 Calcium 10.3 H Total Bilirubin 0.5 AST 22 ALT 31 Alkaline Phosphatase 106 Troponin I 0.0170 Total Protein 8.7 H Albumin 4.5 Globulin 4.3 H Albumin/Globulin Ratio 1.1 06/10/18 06/10/18 06/11/18 17:26 20:25 05:30 WBC 6.3 RBC 3.66 L Hgb 10.3 L Hct 30.4 L MCV 83.1 MCH 28.2 MCHC 33.9 RDW 16.7 H Plt Count 286 MPV 8.0 Neut % (Auto) 72.1 Lymph % (Auto) 17.7 L [place] % (Auto) 8.3 Eos % (Auto) 1.3 Baso % (Auto) 0.6 Neut # (Auto) 4.5 Lymph # (Auto) 1.1 [place] # (Auto) 0.5 Eos # (Auto) 0.1 Baso # (Auto) 0.0 PT INR APTT Sodium Potassium Chloride Carbon Dioxide Anion Gap BUN Creatinine Est GFR ( Amer) Est GFR (Non-Af Amer) POC Glucose (mg/dL) 201 H 228 H Random Glucose Calcium Total Bilirubin AST ALT Alkaline Phosphatase Troponin I Total Protein Albumin Globulin Albumin/Globulin Ratio 06/11/18 06/11/18 06/11/18 05:30 07:22 11:33 WBC RBC Hgb Hct MCV MCH MCHC RDW Plt Count MPV Neut % (Auto) Lymph % (Auto) [place] % (Auto) Eos % (Auto) Baso % (Auto) Neut # (Auto) Lymph # (Auto) [place] # (Auto) Eos # (Auto) Baso # (Auto) PT INR APTT Sodium 141 Potassium 4.1 Chloride 98 Carbon Dioxide 30 Anion Gap 17 BUN 40 H Creatinine 1.4 H Est GFR ( Amer) 48 Est GFR (Non-Af Amer) 39 POC Glucose (mg/dL) 235 H 300 H Random Glucose 234 H Calcium 9.7 Total Bilirubin 0.4 AST 25 ALT 24 Alkaline Phosphatase 86 Troponin I Total Protein 7.7 Albumin 4.0 Globulin 3.7 Albumin/Globulin Ratio 1.1 Assessment & Plan (1) Foot ulcer Status: Chronic (2) CAD (coronary artery disease) Status: Acute (3) CHF (congestive heart failure) Status: Acute (4) Charcot foot due to diabetes mellitus Status: Acute (5) Diabetic foot ulcer Status: Acute - Assessment and Plan (Free Text) Assessment: for OR/ removal of fixator preop cardio eval IV antibiotics
[2018-06-11] MEDS: Morphine 30 mg SR Tab PO SCH (21:16)
[2018-06-11] MEDS: Insulin Detemir 100 Units/ml Inj SC SCH (21:24)
[2018-06-12] MEDS: Piperacillin/Tazobact 3.375 GM in Sodium Chloride 0.9% 100 ML IVPB SCH ×4 (05:27→22:19)
--- NOTE | 2018-06-12 07:43 | PN ---
DATE: 06/12/2018 SUBJECTIVE: The patient is seen and examined. Interim events noted. Consults noted and appreciated. Pain management intervention noted and appreciated. Cardiology followup is pending. The patient feels okay. Denies any chest pain or shortness of breath. adequately controlled with pain management. PHYSICAL EXAMINATION: GENERAL: The patient is in no acute distress. VITAL SIGNS: Stable. HEART: S1, S2, normal and regular. LUNGS: Good bilateral air exchange. ABDOMEN: Soft, nontender. EXTREMITIES: The patient's left lower extremity is under Podiatry's external fixation. No sign of distal complication. CENTRAL NERVOUS SYSTEM: Exam is essentially unchanged. DIAGNOSTIC DATA: Available diagnostic data reviewed. ASSESSMENT AND PLAN: Overall, the patient is medically stable. Plan as ordered. Tushar Jarrell MD
[2018-06-12] MEDS: Insulin Regular 100 units/ml SC SCH ×4 (09:02→16:10)
[2018-06-12] MEDS: Enoxaparin 40 mg Syringe SC SCH (09:03)
[2018-06-12] MEDS: Morphine 30 mg SR Tab PO SCH ×2 (09:07→22:37)
--- NOTE | 2018-06-12 10:05 | CP.PCM.PN ---
Subjective - Date & Time of Evaluation Date of Evaluation: 06/12/18 Time of Evaluation: 09:57 - Subjective Subjective: Podiatry progress note for attending Dr. Macdonald: 51 yo female seen and evaluated s/p left foot charcot neuroarthropathy reconstruction with external fixation(03/28). Patient is going through removal of ex fix on Wednesday. Patient c/o pain in L leg but denies numbness, tingles, weakness, calf pain. No acute overnight events. Patient AAOx3 and in nAD. No chest pain, dyspnea. Afebrile. Objective - Vital Signs/Intake and Output Vital Signs (last 24 hours): Temp Pulse Resp BP Pulse Ox 98.7 F 89 20 150/74 95 06/12/18 08:38 06/12/18 09:03 06/12/18 08:38 06/12/18 09:03 06/12/18 08:38 - Medications Medications: Current Medications Amlodipine Besylate (Norvasc) 10 mg PO DAILY [facility] Last Admin: 06/12/18 09:03 Dose: 10 mg Aspirin (Aspirin) 325 mg PO DAILY [facility] Last Admin: 06/11/18 08:29 Dose: 325 mg Atorvastatin Calcium (Lipitor) 40 mg PO HS [facility] Last Admin: 06/11/18 21:10 Dose: 40 mg Carvedilol (Coreg) 25 mg PO Q12 [facility] Last Admin: 06/12/18 09:01 Dose: 25 mg Clonidine HCl (Catapres) 0.2 mg PO TID [facility] Last Admin: 06/12/18 08:57 Dose: 0.2 mg Enoxaparin Sodium (Lovenox) 40 mg SC DAILY [facility]; Protocol Last Admin: 06/12/18 09:03 Dose: 40 mg Folic Acid (Folic Acid) 1 mg PO DAILY [facility] Last Admin: 06/12/18 09:01 Dose: 1 mg Furosemide (Lasix) 40 mg PO DAILY [facility] Last Admin: 06/12/18 09:03 Dose: 40 mg Hydralazine HCl (Apresoline) 100 mg PO TID [facility] Last Admin: 06/12/18 08:56 Dose: 100 mg Hydromorphone HCl (Dilaudid) 2 mg IVP Q6 PRN PRN Reason: Pain, severe (8-10) Last Admin: 06/12/18 05:26 Dose: 2 mg Vancomycin HCl 1 gm/ Sodium (Chloride) 250 mls @ 166.667 mls/hr IVPB Q12 [facility]; Protocol Last Admin: 06/12/18 09:08 Dose: 166.667 mls/hr Piperacillin Sod/Tazobactam (Sod 3.375 gm/ Sodium Chloride) 100 mls @ 100 mls/hr IVPB Q6 [facility]; Protocol Last Admin: 06/12/18 09:07 Dose: 100 mls/hr Insulin Detemir (Levemir) 70 units SC HS [facility] Last Admin: 06/11/18 21:24 Dose: Not Given Insulin Human Regular (Humulin R) 30 units SC TID [facility] Last Admin: 06/12/18 09:02 Dose: 30 units Lanthanum Carbonate (Fosrenol) 500 mg PO TID [facility] Last Admin: 06/12/18 09:02 Dose: 500 mg Morphine Sulfate (Morphine Extended Release Tab) 30 mg PO Q12 [facility] Last Admin: 06/12/18 09:07 Dose: 30 mg Psyllium Hydrophilic Mucilloid (Hydrocil Instant) 1 pkt PO DAILY [facility] - Labs Labs: 06/11/18 05:30 06/11/18 05:30 PT 11.4 Seconds (9.8-13.1) 06/10/18 12:30 INR 1.0 06/10/18 12:30 APTT 34.0 Seconds (25.6-37.1) 06/10/18 12:30 - Constitutional Appears: Well, Non-toxic - Head Exam Head Exam: ATRAUMATIC - Extremities Exam Additional comments: Dressing dry, clean and intact. B/L LE extremity exam extremity exam: DP/PT pulses palpable 1/4 on the right. Unable to assess DP/PT to left secondary to obstruction from external fixation device, cap refill on left foot <3 to all digits, refill time to distal right foot WNL Neuro: protective sensation absent bilaterally, gross protective sensation intact bilaterally Derm: dressing clean and dry without strike-through, no drainage, pin sites are clean, no erythema, no streaking, no fluctanance, no clinical signs of infection bilaterally left: hyperkeratotic ulcer noted at the medial plantar midfoot, no drainage, no probe to bone, healing noted, hyperkeratotic border and base, no malodor, no clinical signs of infection. right: mild cellulitis of the leg noted, no open lesions MSK: pain on palpation about the left lower leg and surgery sites; external fixation limits any motion at the left lower extremity. - Neurological Exam Neurological Exam: Alert, Awake, Oriented x3 - Psychiatric Exam Psychiatric exam: Normal Affect - Skin Skin Exam: Normal Color Assessment and Plan - Assessment and Plan (Free Text) Assessment: 52 y/o female 2.5 months s/p left foot charcot neuroarthropathy reconstruction using external fixation device(03/28) Plan: Patient seen and evaluated at the bedside Discussed in detail with Dr. Macdonald Charts and labs reviewed: afebrile and absent leukocytosis Patient dressing clean, dry and intact. X-rays left foot/ankle and tib-fib- increased consolidation and stable postoperative findings ID on board, recs appreciated Continue IV Antibiotics Plan: Patient scheduled for OR on Wednesday morning for removal of external fixator. Please provide medical and cardiac clearance. Patient will be under very light anesthesia Podiatry will continue to follow up patient while in house
[2018-06-12] MEDS: Psyllium Packet PO SCH (12:47)
--- NOTE | 2018-06-12 15:59 | CP.PCM.PN ---
Subjective - Date & Time of Evaluation Date of Evaluation: 06/12/18 Time of Evaluation: 08:00 - Subjective Subjective: vanco trough elevated will hold repeat level in am renakl follow up suggested Objective - Vital Signs/Intake and Output Vital Signs (last 24 hours): Temp Pulse Resp BP Pulse Ox 98.7 F 95 H 20 180/83 H 95 06/12/18 08:38 06/12/18 13:01 06/12/18 08:38 06/12/18 13:01 06/12/18 08:38 - Medications Medications: Current Medications Amlodipine Besylate (Norvasc) 10 mg PO DAILY [facility] Last Admin: 06/12/18 09:03 Dose: 10 mg Aspirin (Aspirin) 325 mg PO DAILY [facility] Last Admin: 06/11/18 08:29 Dose: 325 mg Atorvastatin Calcium (Lipitor) 40 mg PO HS [facility] Last Admin: 06/11/18 21:10 Dose: 40 mg Carvedilol (Coreg) 25 mg PO Q12 [facility] Last Admin: 06/12/18 09:01 Dose: 25 mg Clonidine HCl (Catapres) 0.2 mg PO TID [facility] Last Admin: 06/12/18 13:00 Dose: 0.2 mg Docusate Sodium (Colace) 100 mg PO BID [facility] Last Admin: 06/12/18 11:06 Dose: 100 mg Enoxaparin Sodium (Lovenox) 40 mg SC DAILY [facility]; Protocol Last Admin: 06/12/18 09:03 Dose: 40 mg Folic Acid (Folic Acid) 1 mg PO DAILY [facility] Last Admin: 06/12/18 09:01 Dose: 1 mg Furosemide (Lasix) 40 mg PO DAILY [facility] Last Admin: 06/12/18 09:03 Dose: 40 mg Hydralazine HCl (Apresoline) 100 mg PO TID [facility] Last Admin: 06/12/18 13:01 Dose: 100 mg Hydromorphone HCl (Dilaudid) 2 mg IVP Q6 PRN PRN Reason: Pain, severe (8-10) Last Admin: 06/12/18 13:25 Dose: 2 mg Piperacillin Sod/Tazobactam (Sod 3.375 gm/ Sodium Chloride) 100 mls @ 100 mls/hr IVPB Q6 [facility]; Protocol Last Admin: 06/12/18 09:07 Dose: 100 mls/hr Insulin Detemir (Levemir) 70 units SC HS [facility] Last Admin: 06/11/18 21:24 Dose: Not Given Insulin Human Regular (Humulin R) 30 units SC TID [facility] Last Admin: 06/12/18 13:03 Dose: 30 units Lanthanum Carbonate (Fosrenol) 500 mg PO TID [facility] Last Admin: 06/12/18 12:48 Dose: 500 mg Morphine Sulfate (Morphine Extended Release Tab) 30 mg PO Q12 [facility] Last Admin: 06/12/18 09:07 Dose: 30 mg Psyllium Hydrophilic Mucilloid (Hydrocil Instant) 1 pkt PO DAILY [facility] Last Admin: 06/12/18 12:47 Dose: 1 pkt - Labs Labs: 06/11/18 05:30 06/11/18 05:30 PT 11.4 Seconds (9.8-13.1) 06/10/18 12:30 INR 1.0 06/10/18 12:30 APTT 34.0 Seconds (25.6-37.1) 06/10/18 12:30
[2018-06-12] MEDS ORDERED: Insulin Detemir 100 Units/ml Inj SC SCH (23:00)
[2018-06-12] MEDS ORDERED: Insulin Detemir 100 Units/ml Inj SC ONE (23:21)
[2018-06-12] MEDS: Insulin Detemir 100 Units/ml Inj SC SCH (23:32)
[2018-06-13] MEDS: Piperacillin/Tazobact 3.375 GM in Sodium Chloride 0.9% 100 ML IVPB SCH ×4 (03:28→22:58)
[2018-06-13 06:22] LABS: HEMOGLOBIN 10.1 g/dL (12.0-16.0); MEAN CELL VOLUME 86.9 fl (81.0-99.0); MEAN CORPUSCULAR HEMOGLOBIN 28.2 pg (27.0-31.0); MEAN CORPUSCULAR HGB CONC 32.5 g/dL (33.0-37.0); RBC 3.56 Mil/uL (3.80-5.20); WHITE BLOOD COUNT 7.9 K/uL (4.8-10.8)
[2018-06-13 06:42] LABS: ALB/GLOB RATIO 1.1 (1.0-2.1); CALCIUM 9.5 mg/dL (8.4-10.2)
[2018-06-13] MEDS: Insulin Regular 100 units/ml SC SCH ×4 (09:17→18:43)
[2018-06-13] MEDS: Psyllium Packet PO SCH (09:17)
[2018-06-13] MEDS: Morphine 30 mg SR Tab PO SCH ×2 (09:24→22:57)
--- NOTE | 2018-06-13 10:19 | PN ---
DATE: 06/13/2018 SUBJECTIVE: The patient is seen and examined. Interim events noted. Consults noted and appreciated. Cardiology consult is still pending. The patient remains in regular medical floor, complains of multiple pains, which is controlled with current pain medication. The pain she is complaining is chronic. No specific complaint of chest pain or shortness of breath. PHYSICAL EXAMINATION: GENERAL: The patient is in no acute distress. VITAL SIGNS: Stable. HEART: S1, S2 normal and regular. LUNGS: Good bilateral air exchange. ABDOMEN: Soft, nontender. EXTREMITY EXAM: The patient has external fixation on left lower extremity. No calf swelling. No tenderness. No acute ischemia. CENTRAL NERVOUS SYSTEM: Exam is essentially unchanged. DIAGNOSTIC DATA: Available diagnostic data reviewed. ASSESSMENT AND PLAN: The patient is medically stable and in optimal condition . There is no specific medical contraindication . Cardiology evaluation is pending. Plan as ordered. Case and plan discussed with the patient. Tushar Jarrell MD
[2018-06-13] MEDS ORDERED: Lidocaine 1% Inj (20ml) ONE (13:46)
--- NOTE | 2018-06-13 14:12 | PCM.SURG1 ---
Surgeon's Initial Post Op Note - Surgeon's Notes Surgeon: Gregory Giles MD Dna Analyst: NONE Type of Anesthesia: Local Pre-Operative Diagnosis: Infection Operative Findings: Patent right basilic vein Post-Operative Diagnosis: Infection Operation Performed: Single lumen picc right arm, 37 cm. Tip is in the SVC. Specimen/Specimens Removed: NOne Estimated Blood Loss: EBL {In ML}: 2 Blood Products Given: N/A Drains Used: No Drains Post-Op Condition: Fair Date of Surgery/Procedure: 06/13/18 Time of Surgery/Procedure: 14:10
--- NOTE | 2018-06-13 14:21 | CP.PCM.CON ---
History of Present Illness - History of Present Illness History of Present Illness: Consultation for preoperative cardiovascular evaluation with hx of cad and stents in the past HPI: Ms. Jones is a 52 year old female with PMH of HTN, DM, CAD, CHF (last LVEF of 55%), chronic back pain, anxiety, and anemia who presented to ED from Dr. Macdonald with worsening LLE foot wound. She was subsequently admitted for IV abx. Plan per podiatry is OR today with removal of external fixator. Cardiology consultation is requested for pre-op clearance. She endorses constipation which improved with enema and chronic back pain but denies fever/chills, CP, SOB, dyspnea on exertion, nausea/vomiting, urinary complaints, or peripheral numbness/tingling. Had pulmonary congestion requiring intubation post procedure on her last case few months back. At baseline activity limited. Review of Systems - Review of Systems Systems not reviewed;Unavailable: Acuity of Condition - Constitutional Constitutional: As Per HPI - EENT Eyes: As Per HPI Ears: As Per HPI Nose/Mouth/Throat: As Per HPI - Breasts Breasts: As Per HPI - Cardiovascular Cardiovascular: As Per HPI - Respiratory Respiratory: As Per HPI - Gastrointestinal Gastrointestinal: As Per HPI - Genitourinary Genitourinary: As Per HPI - Reproductive: Female Reproductive:Female: As Per HPI - Menstruation Menstruation: As Per HPI - Musculoskeletal Musculoskeletal: As Per HPI - Integumentary Integumentary: As Per HPI - Neurological Neurological: As Per HPI - Psychiatric Psychiatric: As Per HPI - Endocrine Endocrine: As Per HPI - Hematologic/Lymphatic Hematologic: As Per HPI Past Patient History - Infectious Disease Hx of Infectious Diseases: None - Tetanus Immunizations Tetanus Immunization: Unknown - Past Medical History & Family History Past Medical History?: Yes - Past Social History Alcohol: None Drugs: Denies - CARDIAC Hx Congestive Heart Failure: Yes Hx Hypercholesterolemia: Yes Hx Hypertension: Yes Hx Peripheral Edema: Yes - PULMONARY Hx Chronic Obstructive Pulmonary Disease (COPD): No - NEUROLOGICAL Hx Seizures: No - HEENT Hx HEENT Problems: No - RENAL Hx Chronic Kidney Disease: No - ENDOCRINE/METABOLIC Hx Hypothyroidism: No - HEMATOLOGICAL/ONCOLOGICAL Hx Anemia: Yes Hx Human Immunodeficiency Virus (HIV): No - INTEGUMENTARY Hx Dermatological Problems: Yes Hx Cellulitis: Yes Other/Comment: Gangrene right 2nd toe - MUSCULOSKELETAL/RHEUMATOLOGICAL Hx Arthritis: Yes Hx Rheumatoid Arthritis: No - GASTROINTESTINAL Hx Gastrointestinal Disorders: Yes - GENITOURINARY/GYNECOLOGICAL Hx Sexually Transmitted Disorders: No - PSYCHIATRIC Hx Anxiety: Yes Hx Depression: Yes - SURGICAL HISTORY Hx Appendectomy: Yes Hx Coronary Stent: Yes - ANESTHESIA Hx Anesthesia: Yes Hx Anesthesia Reactions: Yes (CAN'T BREATH-ADMITTED TO ICU) Hx Malignant Hyperthermia: No Meds Allergies/Adverse Reactions: Allergies Allergy/AdvReac Type Severity Reaction Status Date / Time No Known Allergies Allergy Verified 06/10/18 11:32 - Medications Medications: Current Medications Amlodipine Besylate (Norvasc) 10 mg PO DAILY [facility] Last Admin: 06/13/18 09:15 Dose: 10 mg Aspirin (Aspirin) 325 mg PO DAILY [facility] Last Admin: 06/11/18 08:29 Dose: 325 mg Atorvastatin Calcium (Lipitor) 40 mg PO HS [facility] Last Admin: 06/12/18 22:21 Dose: 40 mg Carvedilol (Coreg) 25 mg PO Q12 [facility] Last Admin: 06/13/18 09:15 Dose: 25 mg Clonidine HCl (Catapres) 0.2 mg PO TID [facility] Last Admin: 06/13/18 12:41 Dose: 0.2 mg Docusate Sodium (Colace) 100 mg PO BID [facility] Last Admin: 06/13/18 09:16 Dose: 100 mg Enoxaparin Sodium (Lovenox) 40 mg SC DAILY [facility]; Protocol Last Admin: 06/12/18 09:03 Dose: 40 mg Folic Acid (Folic Acid) 1 mg PO DAILY [facility] Last Admin: 06/13/18 09:16 Dose: 1 mg Furosemide (Lasix) 40 mg PO DAILY [facility] Last Admin: 06/13/18 09:16 Dose: 40 mg Hydralazine HCl (Apresoline) 100 mg PO TID [facility] Last Admin: 06/13/18 12:40 Dose: 100 mg Hydromorphone HCl (Dilaudid) 2 mg IVP Q6 PRN PRN Reason: Pain, severe (8-10) Last Admin: 06/13/18 08:37 Dose: 2 mg Piperacillin Sod/Tazobactam (Sod 3.375 gm/ Sodium Chloride) 100 mls @ 100 mls/hr IVPB Q6 [facility]; Protocol Last Admin: 06/13/18 09:18 Dose: 100 mls/hr Insulin Detemir (Levemir) 70 units SC [facility] Last Admin: 06/12/18 23:32 Dose: Not Given Insulin Human Regular (Humulin R) 30 units SC TID [facility] Last Admin: 06/13/18 12:41 Dose: 30 units Lanthanum Carbonate (Fosrenol) 500 mg PO TID [facility] Last Admin: 06/13/18 12:41 Dose: 500 mg Morphine Sulfate (Morphine Extended Release Tab) 30 mg PO Q12 [facility] Last Admin: 06/13/18 09:24 Dose: 30 mg Psyllium Hydrophilic Mucilloid (Hydrocil Instant) 1 pkt PO DAILY [facility] Last Admin: 06/13/18 09:17 Dose: 1 pkt Physical Exam - Constitutional Appears: Well - Head Exam Head Exam: ATRAUMATIC, NORMAL INSPECTION, NORMOCEPHALIC - Eye Exam Eye Exam: EOMI, Normal appearance, PERRL Pupil Exam: NORMAL ACCOMODATION, PERRL - ENT Exam ENT Exam: Mucous Membranes Moist, Normal Exam - Neck Exam Neck exam: Positive for: Normal Inspection - Respiratory Exam Respiratory Exam: Clear to Auscultation Bilateral, NORMAL BREATHING PATTERN - Cardiovascular Exam Cardiovascular Exam: REGULAR RHYTHM - GI/Abdominal Exam GI & Abdominal Exam: Normal Bowel Sounds, Soft. absent: Tenderness - Extremities Exam Extremities exam: Positive for: normal inspection - Back Exam Back exam: NORMAL INSPECTION - Neurological Exam Neurological exam: Alert, CN II-XII Intact, Normal Gait, Oriented x3, Reflexes Normal - Psychiatric Exam Psychiatric exam: Normal Affect, Normal Mood - Skin Skin Exam: Dry, Intact, Normal Color, Warm Results - Vital Signs Recent Vital Signs: Last Vital Signs Temp 97.9 F 06/13/18 13:43 Pulse 80 06/13/18 13:43 Resp 18 06/13/18 13:43 BP 160/88 H 06/13/18 13:43 Pulse Ox 96 06/13/18 08:18 - Labs Result Diagrams: 06/13/18 05:12 06/13/18 05:12 Labs: Laboratory Results - last 24 hr 06/12/18 06/12/18 06/12/18 11:06 15:40 21:07 WBC RBC Hgb Hct MCV MCH MCHC RDW Plt Count Sodium Potassium Chloride Carbon Dioxide Anion Gap BUN Creatinine Est GFR ( Amer) Est GFR (Non-Af Amer) POC Glucose (mg/dL) 347 H 328 H 254 H Random Glucose Calcium Phosphorus Magnesium Total Bilirubin AST ALT Alkaline Phosphatase Total Protein Albumin Globulin Albumin/Globulin Ratio Random Vancomycin 06/13/18 06/13/18 06/13/18 04:53 05:12 05:12 WBC 7.9 RBC 3.56 L Hgb 10.1 L Hct 31.0 L MCV 86.9 D MCH 28.2 MCHC 32.5 L RDW 17.0 H Plt Count 298 Sodium 138 Potassium 3.9 Chloride 101 Carbon Dioxide 27 Anion Gap 14 BUN 34 H Creatinine 1.3 H Est GFR ( Amer) 52 Est GFR (Non-Af Amer) 43 POC Glucose (mg/dL) 202 H Random Glucose 194 H Calcium 9.5 Phosphorus 4.3 Magnesium 1.8 Total Bilirubin 0.6 AST 18 ALT 11 Alkaline Phosphatase 86 Total Protein 7.6 Albumin 4.0 Globulin 3.6 Albumin/Globulin Ratio 1.1 Random Vancomycin 06/13/18 06/13/18 05:12 11:21 WBC RBC Hgb Hct MCV MCH MCHC RDW Plt Count Sodium Potassium Chloride Carbon Dioxide Anion Gap BUN Creatinine Est GFR ( Amer) Est GFR (Non-Af Amer) POC Glucose (mg/dL) 256 H Random Glucose Calcium Phosphorus Magnesium Total Bilirubin AST ALT Alkaline Phosphatase Total Protein Albumin Globulin Albumin/Globulin Ratio Random Vancomycin 14.2 Assessment & Plan (1) Preop cardiovascular exam Assessment and Plan: will further risk stratification with nuclear stress testing due to hx of cardiac complications and no recent w/u available Status: Acute (2) CAD (coronary artery disease) Status: Acute (3) CHF (congestive heart failure) Assessment and Plan: echo in march shows normal EF with grade II diastolic dysfunction Status: Acute (4) Chronic kidney disease Status: Acute (5) Essential hypertension Assessment and Plan: resistant HTN on multiple meds renal duplex Status: Chronic
[2018-06-13] MEDS ORDERED: Insulin Detemir 100 Units/ml Inj SC SCH (22:15)
[2018-06-13] MEDS ORDERED: Insulin Detemir 100 Units/ml Inj SC ONE (22:16)
[2018-06-13] MEDS: Insulin Detemir 100 Units/ml Inj SC SCH (22:54)
[2018-06-14] MEDS: Piperacillin/Tazobact 3.375 GM in Sodium Chloride 0.9% 100 ML IVPB SCH ×4 (05:09→21:11)
[2018-06-14 06:29] LABS: HEMOGLOBIN 10.2 g/dL (12.0-16.0); MEAN CELL VOLUME 83.6 fl (81.0-99.0); MEAN CORPUSCULAR HEMOGLOBIN 28.1 pg (27.0-31.0); MEAN CORPUSCULAR HGB CONC 33.6 g/dL (33.0-37.0); RBC 3.63 Mil/uL (3.80-5.20); RED CELL DISTRIBUTION WIDTH 16.8 % (11.5-14.5); WHITE BLOOD COUNT 7.4 K/uL (4.8-10.8)
[2018-06-14 06:55] LABS: ALB/GLOB RATIO 1.1 (1.0-2.1); ALBUMIN 3.9 g/dL (3.5-5.0); ALT/SGPT 15 U/L (9-52); AST/SGOT 21 U/L (14-36); BLOOD UREA NITROGEN 27 mg/dl (7-17); CALCIUM 9.5 mg/dL (8.4-10.2); GFR NON-AFRICAN AMERICAN 52
[2018-06-14] MEDS: Insulin Regular 100 units/ml SC SCH ×5 (09:00→22:53)
--- NOTE | 2018-06-14 10:24 | PN ---
DATE: 06/14/2018 SUBJECTIVE: The patient seen and examined. Interim events noted. Consults noted and appreciated. Cardiology followup and interventions noted and appreciated. The patient remains in regular medical floor. Tentatively scheduled for stress test and is negative for surgery today. The patient feels okay. Pain is adequately controlled. No new complaint of chest pain or shortness of breath. PHYSICAL EXAMINATION: GENERAL: The patient is in no acute distress. VITAL SIGNS: Stable. HEART EXAM: S1, S2 normal and regular. LUNGS: Good bilateral air exchange. ABDOMEN: Soft, nontender. EXTREMITIES EXAM: Left lower extremity has external fixation. No edema. No calf swelling. No tenderness. No acute ischemia. CUSTOMER SUPPORT SPECIALIST: Exam is essentially unchanged. DIAGNOSTIC DATA: Available diagnostic data reviewed. ASSESSMENT AND PLAN: Overall the patient is medically stable for stress test followed by possible surgery today. Plan as ordered. Case and plan discussed with patient. Tushar Jarrell MD
[2018-06-14] MEDS: Psyllium Packet PO SCH ×2 (10:46→21:19)
[2018-06-14] MEDS: Morphine 30 mg SR Tab PO SCH ×2 (10:48→21:12)
--- NOTE | 2018-06-14 11:12 | CP.PCM.PN ---
Subjective - Date & Time of Evaluation Date of Evaluation: 06/14/18 Time of Evaluation: 08:00 - Subjective Subjective: going to OR for removal of fixation device Objective - Vital Signs/Intake and Output Vital Signs (last 24 hours): Temp Pulse Resp BP Pulse Ox 98.0 F 77 20 166/70 H 94 L 06/14/18 08:01 06/14/18 10:42 06/14/18 08:01 06/14/18 10:42 06/14/18 08:01 - Medications Medications: Current Medications Amlodipine Besylate (Norvasc) 10 mg PO DAILY [facility] Last Admin: 06/14/18 10:42 Dose: 10 mg Aspirin (Aspirin) 325 mg PO DAILY [facility] Last Admin: 06/14/18 10:49 Dose: Not Given Atorvastatin Calcium (Lipitor) 40 mg PO HS [facility] Last Admin: 06/13/18 22:53 Dose: 40 mg Carvedilol (Coreg) 25 mg PO Q12 [facility] Last Admin: 06/14/18 10:39 Dose: 25 mg Clonidine HCl (Catapres) 0.2 mg PO TID [facility] Last Admin: 06/14/18 10:40 Dose: 0.2 mg Docusate Sodium (Colace) 100 mg PO BID [facility] Last Admin: 06/14/18 10:46 Dose: 100 mg Enoxaparin Sodium (Lovenox) 40 mg SC DAILY [facility]; Protocol Last Admin: 06/12/18 09:03 Dose: 40 mg Folic Acid (Folic Acid) 1 mg PO DAILY [facility] Last Admin: 06/14/18 10:40 Dose: 1 mg Furosemide (Lasix) 40 mg PO DAILY [facility] Last Admin: 06/14/18 10:41 Dose: 40 mg Hydralazine HCl (Apresoline) 100 mg PO TID [facility] Last Admin: 06/14/18 10:40 Dose: 100 mg Hydromorphone HCl (Dilaudid) 2 mg IVP Q6 PRN PRN Reason: Pain, severe (8-10) Last Admin: 06/14/18 08:43 Dose: 2 mg Piperacillin Sod/Tazobactam (Sod 3.375 gm/ Sodium Chloride) 100 mls @ 100 mls/hr IVPB Q6 [facility]; Protocol Last Admin: 06/14/18 10:44 Dose: 100 mls/hr Insulin Detemir (Levemir) 70 units SC [facility] Last Admin: 06/13/18 22:54 Dose: Not Given Insulin Human Regular (Humulin R) 30 units SC TID [facility] Last Admin: 06/14/18 09:00 Dose: Not Given Lanthanum Carbonate (Fosrenol) 500 mg PO TID [facility] Last Admin: 06/14/18 10:40 Dose: 500 mg Morphine Sulfate (Morphine Extended Release Tab) 30 mg PO Q12 [facility] Last Admin: 06/14/18 10:48 Dose: 30 mg Psyllium Hydrophilic Mucilloid (Hydrocil Instant) 1 pkt PO DAILY [facility] Last Admin: 06/14/18 10:46 Dose: Not Given - Labs Labs: 06/14/18 05:55 06/14/18 05:55 PT 11.4 Seconds (9.8-13.1) 06/10/18 12:30 INR 1.0 06/10/18 12:30 APTT 34.0 Seconds (25.6-37.1) 06/10/18 12:30 - Constitutional Appears: Non-toxic, Chronically Ill - Head Exam Head Exam: NORMOCEPHALIC - Eye Exam Eye Exam: absent: Scleral icterus - ENT Exam ENT Exam: Mucous Membranes Dry - Neck Exam Neck Exam: absent: Lymphadenopathy - Respiratory Exam Respiratory Exam: Decreased Breath Sounds - GI/Abdominal Exam GI & Abdominal Exam: Distended, Soft - Rectal Exam Rectal Exam: Deferred - Exam Exam: NORMAL INSPECTION - Extremities Exam Extremities Exam: Pedal Edema, Tenderness - Back Exam Back Exam: absent: CVA tenderness (L), CVA tenderness (R) Assessment and Plan (1) Foot pain Status: Acute (2) Foot ulcer Status: Chronic (3) CAD (coronary artery disease) Status: Acute - Assessment and Plan (Free Text) Assessment: charcot foot diabetic ulcers sever cardiomyopathy/ CHF / CAD cont IV rx and wound care
[2018-06-14] MEDS: Insulin Detemir 100 Units/ml Inj SC SCH (21:14)
[2018-06-15] MEDS: Piperacillin/Tazobact 3.375 GM in Sodium Chloride 0.9% 100 ML IVPB SCH ×4 (05:00→21:05)
[2018-06-15 05:07] LABS: HEMOGLOBIN 9.7 g/dL (12.0-16.0); MEAN CELL VOLUME 83.7 fl (81.0-99.0); MEAN CORPUSCULAR HEMOGLOBIN 27.7 pg (27.0-31.0); MEAN CORPUSCULAR HGB CONC 33.1 g/dL (33.0-37.0); RBC 3.51 Mil/uL (3.80-5.20); RED CELL DISTRIBUTION WIDTH 16.7 % (11.5-14.5); WHITE BLOOD COUNT 7.3 K/uL (4.8-10.8)
[2018-06-15 05:39] LABS: ALBUMIN 3.8 g/dL (3.5-5.0); CALCIUM 9.6 mg/dL (8.4-10.2)
[2018-06-15] MEDS: Morphine 30 mg SR Tab PO SCH ×2 (08:20→21:04)
[2018-06-15] MEDS: Insulin Regular 100 units/ml SC SCH ×8 (08:22→21:26)
[2018-06-15] MEDS: Enoxaparin 40 mg Syringe SC SCH (08:23)
[2018-06-15] MEDS: Psyllium Packet PO SCH (08:23)
--- NOTE | 2018-06-15 10:21 | CP.PCM.PN ---
Subjective - Date & Time of Evaluation Date of Evaluation: 06/15/18 Time of Evaluation: 09:38 - Subjective Subjective: Podiatry progress note for Dr. Macdonald 52F seen and evaluated at bedside. Resting comfortably. External fixation clean and dry and intact. No acute complaints overnight. Aware of surgery tomorrow. Had stress test with Dr. Smiley yesterday. Denies N/V/F/C/SOB/CP. Has no other pedal complaints. Objective - Vital Signs/Intake and Output Vital Signs (last 24 hours): Temp Pulse Resp BP Pulse Ox 98.1 F 87 20 179/79 H 95 06/15/18 07:42 06/15/18 08:21 06/15/18 07:42 06/15/18 08:23 06/15/18 07:42 - Medications Medications: Current Medications Alprazolam (Xanax) 0.25 mg PO Q12 PRN PRN Reason: Anxiety Stop: 06/21/18 11:59 Last Admin: 06/14/18 22:19 Dose: 0.25 mg Amlodipine Besylate (Norvasc) 10 mg PO DAILY [facility] Last Admin: 06/15/18 08:23 Dose: 10 mg Aspirin (Aspirin) 325 mg PO DAILY [facility] Last Admin: 06/15/18 08:21 Dose: 325 mg Atorvastatin Calcium (Lipitor) 40 mg PO HS [facility] Last Admin: 06/14/18 21:13 Dose: 40 mg Carvedilol (Coreg) 25 mg PO Q12 [facility] Last Admin: 06/15/18 08:21 Dose: 25 mg Clonidine HCl (Catapres) 0.2 mg PO TID [facility] Last Admin: 06/15/18 08:21 Dose: 0.2 mg Docusate Sodium (Colace) 100 mg PO BID [facility] Last Admin: 06/15/18 08:21 Dose: 100 mg Enoxaparin Sodium (Lovenox) 40 mg SC DAILY [facility]; Protocol Last Admin: 06/15/18 08:23 Dose: 40 mg Folic Acid (Folic Acid) 1 mg PO DAILY [facility] Last Admin: 06/15/18 08:22 Dose: 1 mg Furosemide (Lasix) 40 mg PO DAILY [facility] Last Admin: 06/15/18 08:23 Dose: 40 mg Hydralazine HCl (Apresoline) 100 mg PO TID [facility] Last Admin: 06/15/18 08:20 Dose: 100 mg Hydromorphone HCl (Dilaudid) 2 mg IVP Q6 PRN PRN Reason: Pain, severe (8-10) Last Admin: 06/15/18 05:02 Dose: 2 mg Piperacillin Sod/Tazobactam (Sod 3.375 gm/ Sodium Chloride) 100 mls @ 100 mls/hr IVPB Q6 [facility]; Protocol Last Admin: 06/15/18 09:08 Dose: 100 mls/hr Insulin Detemir (Levemir) 70 units SC HS [facility] Last Admin: 06/14/18 21:14 Dose: 70 u Insulin Human Regular (Humulin R) 30 units SC TID [facility] Last Admin: 06/15/18 08:22 Dose: 30 units Insulin Human Regular (Humulin R) 0 units SC A[facility]; Protocol Last Admin: 06/15/18 08:22 Dose: Not Given Lanthanum Carbonate (Fosrenol) 500 mg PO TID [facility] Last Admin: 06/15/18 08:20 Dose: 500 mg Morphine Sulfate (Morphine Extended Release Tab) 30 mg PO Q12 [facility] Last Admin: 06/15/18 08:20 Dose: 30 mg Psyllium Hydrophilic Mucilloid (Hydrocil Instant) 1 pkt PO DAILY [facility] Last Admin: 06/15/18 08:23 Dose: 1 pkt - Labs Labs: 06/15/18 04:30 06/15/18 04:30 PT 11.4 Seconds (9.8-13.1) 06/10/18 12:30 INR 1.0 06/10/18 12:30 APTT 34.0 Seconds (25.6-37.1) 06/10/18 12:30 - Constitutional Appears: Well, Non-toxic, No Acute Distress - Head Exam Head Exam: ATRAUMATIC, NORMOCEPHALIC - Extremities Exam Additional comments: Vasc: DP/PT pulses palpable 1/4 on the right. Unable to assess DP/PT to left secondary to obstruction from external fixation device, cap refill on left foot <3 to all digits, refill time to distal right foot WNL Neuro: protective sensation absent bilaterally, gross protective sensation intact bilaterally Derm: dressing clean and dry without strike-through, no drainage, pin sites are clean, no erythema, no streaking, no fluctanance, no clinical signs of infection bilaterally left: hyperkeratotic ulcer noted at the medial plantar midfoot, no drainage, no probe to bone, healing noted, hyperkeratotic border and base, no malodor, no clinical signs of infection. right: mild erythema of the leg noted, no open lesions MSK: pain on palpation about the left lower leg and surgery sites; external fixation limits any motion at the left lower extremity. 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 Macdonald Afebrile, absent leukocytosis Ex fix intact, dressing clean and dry Patient aware of hardware removal surgery scheduled for 7:45 AM tomorrow Stress test per Dr. Smiley - Dr. Macdonald aware Patient to be NPO past midnight tonight, can have dinner Continue medications per medicine Will continue to follow patient while in house
--- NOTE | 2018-06-15 12:50 | CP.PCM.PN ---
Subjective - Date & Time of Evaluation Date of Evaluation: 06/15/18 Time of Evaluation: 07:00 - Subjective Subjective: events noted OR on hold - needs cardiac cath iv rx in progress Objective - Vital Signs/Intake and Output Vital Signs (last 24 hours): Temp Pulse Resp BP Pulse Ox 98.1 F 69 20 169/64 H 95 06/15/18 07:42 06/15/18 12:37 06/15/18 07:42 06/15/18 12:37 06/15/18 07:42 - Medications Medications: Current Medications Alprazolam (Xanax) 0.25 mg PO Q12 PRN PRN Reason: Anxiety Stop: 06/21/18 11:59 Last Admin: 06/14/18 22:19 Dose: 0.25 mg Amlodipine Besylate (Norvasc) 10 mg PO DAILY [facility] Last Admin: 06/15/18 08:23 Dose: 10 mg Aspirin (Aspirin) 325 mg PO DAILY [facility] Last Admin: 06/15/18 08:21 Dose: 325 mg Atorvastatin Calcium (Lipitor) 40 mg PO HS [facility] Last Admin: 06/14/18 21:13 Dose: 40 mg Carvedilol (Coreg) 25 mg PO Q12 [facility] Last Admin: 06/15/18 08:21 Dose: 25 mg Clonidine HCl (Catapres) 0.2 mg PO TID [facility] Last Admin: 06/15/18 12:37 Dose: 0.2 mg Docusate Sodium (Colace) 100 mg PO BID [facility] Last Admin: 06/15/18 08:21 Dose: 100 mg Enoxaparin Sodium (Lovenox) 40 mg SC DAILY [facility]; Protocol Last Admin: 06/15/18 08:23 Dose: 40 mg Folic Acid (Folic Acid) 1 mg PO DAILY [facility] Last Admin: 06/15/18 08:22 Dose: 1 mg Furosemide (Lasix) 40 mg PO DAILY [facility] Last Admin: 06/15/18 08:23 Dose: 40 mg Hydralazine HCl (Apresoline) 100 mg PO TID [facility] Last Admin: 06/15/18 12:37 Dose: 100 mg Hydromorphone HCl (Dilaudid) 2 mg IVP Q6 PRN PRN Reason: Pain, severe (8-10) Last Admin: 06/15/18 11:08 Dose: 2 mg Piperacillin Sod/Tazobactam (Sod 3.375 gm/ Sodium Chloride) 100 mls @ 100 mls/hr IVPB Q6 [facility]; Protocol Last Admin: 06/15/18 09:08 Dose: 100 mls/hr Insulin Detemir (Levemir) 70 units SC HS [facility] Last Admin: 06/14/18 21:14 Dose: 70 u Insulin Human Regular (Humulin R) 30 units SC TID [facility] Last Admin: 06/15/18 08:22 Dose: 30 units Insulin Human Regular (Humulin R) 0 units SC ACHS [facility]; Protocol Last Admin: 06/15/18 12:36 Dose: 4 units Lanthanum Carbonate (Fosrenol) 500 mg PO TID [facility] Last Admin: 06/15/18 12:37 Dose: 500 mg Morphine Sulfate (Morphine Extended Release Tab) 30 mg PO Q12 [facility] Last Admin: 06/15/18 08:20 Dose: 30 mg Psyllium Hydrophilic Mucilloid (Hydrocil Instant) 1 pkt PO DAILY [facility] Last Admin: 06/15/18 08:23 Dose: 1 pkt - Labs Labs: 06/15/18 04:30 06/15/18 04:30 PT 11.4 Seconds (9.8-13.1) 06/10/18 12:30 INR 1.0 06/10/18 12:30 APTT 34.0 Seconds (25.6-37.1) 06/10/18 12:30 - Constitutional Appears: Non-toxic, Chronically Ill - Head Exam Head Exam: NORMOCEPHALIC - Eye Exam Eye Exam: PERRL - ENT Exam ENT Exam: Mucous Membranes Dry - Respiratory Exam Respiratory Exam: Decreased Breath Sounds - Cardiovascular Exam Cardiovascular Exam: REGULAR RHYTHM - GI/Abdominal Exam GI & Abdominal Exam: Distended - Rectal Exam Rectal Exam: Deferred - Extremities Exam Extremities Exam: Pedal Edema, Tenderness - Back Exam Back Exam: Full ROM - Psychiatric Exam Psychiatric exam: Depressed - Skin Skin Exam: Dry Assessment and Plan (1) Foot pain Status: Acute (2) Foot ulcer Status: Chronic (3) CAD (coronary artery disease) Status: Acute - Assessment and Plan (Free Text) Assessment: cardiac eval in progress cont iv antibiotics
[2018-06-15] MEDS: Insulin Detemir 100 Units/ml Inj SC SCH (21:27)
--- NOTE | 2018-06-15 23:01 | CP.PCM.PN ---
Subjective - Date & Time of Evaluation Date of Evaluation: 06/14/18 Time of Evaluation: 11:00 - Subjective Subjective: stress testing today Objective - Vital Signs/Intake and Output Vital Signs (last 24 hours): Temp Pulse Resp BP Pulse Ox 97.8 F 79 18 145/67 93 L 06/15/18 16:39 06/15/18 21:04 06/15/18 16:39 06/15/18 21:04 06/15/18 16:39 - Medications Medications: Current Medications Alprazolam (Xanax) 0.25 mg PO Q12 PRN PRN Reason: Anxiety Stop: 06/21/18 11:59 Last Admin: 06/14/18 22:19 Dose: 0.25 mg Amlodipine Besylate (Norvasc) 10 mg PO DAILY [facility] Last Admin: 06/15/18 08:23 Dose: 10 mg Aspirin (Aspirin) 325 mg PO DAILY [facility] Last Admin: 06/15/18 08:21 Dose: 325 mg Atorvastatin Calcium (Lipitor) 40 mg PO HS [facility] Last Admin: 06/15/18 21:04 Dose: 40 mg Carvedilol (Coreg) 25 mg PO Q12 [facility] Last Admin: 06/15/18 21:04 Dose: 25 mg Clonidine HCl (Catapres) 0.2 mg PO TID [facility] Last Admin: 06/15/18 16:31 Dose: 0.2 mg Docusate Sodium (Colace) 100 mg PO BID [facility] Last Admin: 06/15/18 16:31 Dose: 100 mg Enoxaparin Sodium (Lovenox) 40 mg SC DAILY [facility]; Protocol Last Admin: 06/15/18 08:23 Dose: 40 mg Folic Acid (Folic Acid) 1 mg PO DAILY [facility] Last Admin: 06/15/18 08:22 Dose: 1 mg Furosemide (Lasix) 40 mg PO DAILY [facility] Last Admin: 06/15/18 08:23 Dose: 40 mg Hydralazine HCl (Apresoline) 100 mg PO TID [facility] Last Admin: 06/15/18 16:31 Dose: 100 mg Hydromorphone HCl (Dilaudid) 2 mg IVP Q6 PRN PRN Reason: Pain, severe (8-10) Last Admin: 06/15/18 22:52 Dose: 2 mg Piperacillin Sod/Tazobactam (Sod 3.375 gm/ Sodium Chloride) 100 mls @ 100 mls/hr IVPB Q6 [facility]; Protocol Last Admin: 06/15/18 21:05 Dose: 100 mls/hr Insulin Detemir (Levemir) 70 units SC HS [facility] Last Admin: 06/15/18 21:27 Dose: Not Given Insulin Human Regular (Humulin R) 30 units SC TID [facility] Last Admin: 06/15/18 17:09 Dose: Not Given Insulin Human Regular (Humulin R) 0 units SC ACHS [facility]; Protocol Last Admin: 06/15/18 21:26 Dose: Not Given Lanthanum Carbonate (Fosrenol) 500 mg PO TID [facility] Last Admin: 06/15/18 16:31 Dose: 500 mg Morphine Sulfate (Morphine Extended Release Tab) 30 mg PO Q12 [facility] Last Admin: 06/15/18 21:04 Dose: 30 mg Psyllium Hydrophilic Mucilloid (Hydrocil Instant) 1 pkt PO DAILY [facility] Last Admin: 06/15/18 08:23 Dose: 1 pkt - Labs Labs: 06/15/18 04:30 06/15/18 04:30 PT 11.4 Seconds (9.8-13.1) 06/10/18 12:30 INR 1.0 06/10/18 12:30 APTT 34.0 Seconds (25.6-37.1) 06/10/18 12:30 - Constitutional Appears: Well - Head Exam Head Exam: ATRAUMATIC, NORMAL INSPECTION, NORMOCEPHALIC - Eye Exam Eye Exam: EOMI, Normal appearance, PERRL Pupil Exam: NORMAL ACCOMODATION, PERRL - ENT Exam ENT Exam: Mucous Membranes Moist, Normal Exam - Neck Exam Neck Exam: Full ROM, Normal Inspection. absent: Lymphadenopathy - Respiratory Exam Respiratory Exam: Clear to Ausculation Bilateral, NORMAL BREATHING PATTERN - Cardiovascular Exam Cardiovascular Exam: REGULAR RHYTHM, +S1, +S2. absent: Murmur - GI/Abdominal Exam GI & Abdominal Exam: Soft, Normal Bowel Sounds. absent: Tenderness - Extremities Exam Extremities Exam: Normal Capillary Refill, Normal Inspection. absent: Joint Swelling, Pedal Edema Additional comments: hardware in LE - Back Exam Back Exam: NORMAL INSPECTION - Neurological Exam Neurological Exam: Alert, Awake, CN II-XII Intact, Normal Gait, Oriented x3 - Psychiatric Exam Psychiatric exam: Normal Affect, Normal Mood - Skin Skin Exam: Dry, Intact, Normal Color, Warm Assessment and Plan (1) Preop cardiovascular exam Assessment & Plan: stress testing done today Status: Acute (2) CAD (coronary artery disease) Status: Acute (3) CHF (congestive heart failure) Status: Acute (4) Chronic kidney disease Status: Acute (5) Essential hypertension Status: Chronic (6) Hypertension Status: Chronic
--- NOTE | 2018-06-15 23:04 | CP.PCM.PN ---
Subjective - Date & Time of Evaluation Date of Evaluation: 06/15/18 Time of Evaluation: 12:00 - Subjective Subjective: stress testing abnormal - anterolateral ischemia with TID discussed findings with patient - will need cardiac catheterization Objective - Vital Signs/Intake and Output Vital Signs (last 24 hours): Temp Pulse Resp BP Pulse Ox 97.8 F 79 18 145/67 93 L 06/15/18 16:39 06/15/18 21:04 06/15/18 16:39 06/15/18 21:04 06/15/18 16:39 - Medications Medications: Current Medications Alprazolam (Xanax) 0.25 mg PO Q12 PRN PRN Reason: Anxiety Stop: 06/21/18 11:59 Last Admin: 06/14/18 22:19 Dose: 0.25 mg Amlodipine Besylate (Norvasc) 10 mg PO DAILY [facility] Last Admin: 06/15/18 08:23 Dose: 10 mg Aspirin (Aspirin) 325 mg PO DAILY [facility] Last Admin: 06/15/18 08:21 Dose: 325 mg Atorvastatin Calcium (Lipitor) 40 mg PO HS [facility] Last Admin: 06/15/18 21:04 Dose: 40 mg Carvedilol (Coreg) 25 mg PO Q12 [facility] Last Admin: 06/15/18 21:04 Dose: 25 mg Clonidine HCl (Catapres) 0.2 mg PO TID [facility] Last Admin: 06/15/18 16:31 Dose: 0.2 mg Docusate Sodium (Colace) 100 mg PO BID [facility] Last Admin: 06/15/18 16:31 Dose: 100 mg Enoxaparin Sodium (Lovenox) 40 mg SC DAILY [facility]; Protocol Last Admin: 06/15/18 08:23 Dose: 40 mg Folic Acid (Folic Acid) 1 mg PO DAILY [facility] Last Admin: 06/15/18 08:22 Dose: 1 mg Furosemide (Lasix) 40 mg PO DAILY [facility] Last Admin: 06/15/18 08:23 Dose: 40 mg Hydralazine HCl (Apresoline) 100 mg PO TID [facility] Last Admin: 06/15/18 16:31 Dose: 100 mg Hydromorphone HCl (Dilaudid) 2 mg IVP Q6 PRN PRN Reason: Pain, severe (8-10) Last Admin: 06/15/18 22:52 Dose: 2 mg Piperacillin Sod/Tazobactam (Sod 3.375 gm/ Sodium Chloride) 100 mls @ 100 mls/hr IVPB Q6 [facility]; Protocol Last Admin: 06/15/18 21:05 Dose: 100 mls/hr Insulin Detemir (Levemir) 70 units SC HS [facility] Last Admin: 06/15/18 21:27 Dose: Not Given Insulin Human Regular (Humulin R) 30 units SC TID [facility] Last Admin: 06/15/18 17:09 Dose: Not Given Insulin Human Regular (Humulin R) 0 units SC ACHS [facility]; Protocol Last Admin: 06/15/18 21:26 Dose: Not Given Lanthanum Carbonate (Fosrenol) 500 mg PO TID [facility] Last Admin: 06/15/18 16:31 Dose: 500 mg Morphine Sulfate (Morphine Extended Release Tab) 30 mg PO Q12 [facility] Last Admin: 06/15/18 21:04 Dose: 30 mg Psyllium Hydrophilic Mucilloid (Hydrocil Instant) 1 pkt PO DAILY [facility] Last Admin: 06/15/18 08:23 Dose: 1 pkt - Labs Labs: 06/15/18 04:30 06/15/18 04:30 PT 11.4 Seconds (9.8-13.1) 06/10/18 12:30 INR 1.0 06/10/18 12:30 APTT 34.0 Seconds (25.6-37.1) 06/10/18 12:30 - Constitutional Appears: Well - Head Exam Head Exam: ATRAUMATIC, NORMAL INSPECTION, NORMOCEPHALIC - Eye Exam Eye Exam: EOMI, Normal appearance, PERRL Pupil Exam: NORMAL ACCOMODATION, PERRL - ENT Exam ENT Exam: Mucous Membranes Moist, Normal Exam - Neck Exam Neck Exam: Full ROM, Normal Inspection. absent: Lymphadenopathy - Respiratory Exam Respiratory Exam: Clear to Ausculation Bilateral, NORMAL BREATHING PATTERN - Cardiovascular Exam Cardiovascular Exam: REGULAR RHYTHM, +S1, +S2. absent: Murmur - GI/Abdominal Exam GI & Abdominal Exam: Soft, Normal Bowel Sounds. absent: Tenderness - Extremities Exam Extremities Exam: Full ROM, Normal Capillary Refill, Normal Inspection. absent: Joint Swelling, Pedal Edema - Back Exam Back Exam: NORMAL INSPECTION - Neurological Exam Neurological Exam: Alert, Awake, CN II-XII Intact, Normal Gait, Oriented x3 - Psychiatric Exam Psychiatric exam: Normal Affect, Normal Mood - Skin Skin Exam: Dry, Intact, Normal Color, Warm Assessment and Plan (1) Preop cardiovascular exam Assessment & Plan: abnormal stress testing will need cardiac cath to be arranged at [facility] 7 am npo p mn Status: Acute (2) CAD (coronary artery disease) Assessment & Plan: cont asa, coreg statins cath in am Status: Acute (3) CHF (congestive heart failure) Assessment & Plan: chronic diastolic cont lasix Status: Acute (4) Chronic kidney disease Status: Acute (5) Essential hypertension Status: Chronic (6) Hypertension Assessment & Plan: resistant HTN etiology unclear Status: Chronic
[2018-06-16] MEDS ORDERED: Metoprolol 1 mg/ml Inj IVP STA (00:16)
--- NOTE | 2018-06-16 00:22 | CP.PCM.PCO ---
Assessment/Plan - Assessment and Plan (Free Text) Assessment: MD called for elevated BP by RN. Systolic 190's, with HR 87. Pt endorsing mild abdominal burning pain. Denies chest pain, chest tightness. No radiation of the pain. Pt currently NPO for cardiac cath in AM, all PO HTN meds held. Not able to give hydralazine in med/surg floor per RN -1x dose of Lopressor IVP stat and Famotidine stat IVP
[2018-06-16] MEDS ORDERED: Enalaprilat 2.5 MG/2 ML IVP STA (00:34)
[2018-06-16] MEDS: Piperacillin/Tazobact 3.375 GM in Sodium Chloride 0.9% 100 ML IVPB SCH ×4 (03:10→21:54)
[2018-06-16] MEDS: Insulin Regular 100 units/ml SC SCH ×8 (07:24→21:55)
[2018-06-16] MEDS: Enoxaparin 40 mg Syringe SC SCH (08:18)
[2018-06-16] MEDS: Morphine 30 mg SR Tab PO SCH ×3 (08:18→21:58)
[2018-06-16] MEDS: Psyllium Packet PO SCH (08:18)
--- NOTE | 2018-06-16 08:23 | CP.PCM.PN ---
Subjective - Date & Time of Evaluation Date of Evaluation: 06/16/18 Time of Evaluation: 08:21 - Subjective Subjective: s/p LHCx today at showing severe ISR of LAD and LCx Objective - Vital Signs/Intake and Output Vital Signs (last 24 hours): Temp Pulse Resp BP Pulse Ox 97.9 F 84 20 193/76 H 96 06/16/18 05:00 06/16/18 05:05 06/16/18 05:00 06/16/18 05:05 06/16/18 05:00 - Medications Medications: Current Medications Alprazolam (Xanax) 0.25 mg PO Q12 PRN PRN Reason: Anxiety Stop: 06/21/18 11:59 Last Admin: 06/15/18 23:59 Dose: 0.25 mg Amlodipine Besylate (Norvasc) 10 mg PO DAILY [facility] Last Admin: 06/16/18 08:19 Dose: Not Given Aspirin (Aspirin) 325 mg PO DAILY [facility] Last Admin: 06/16/18 08:17 Dose: Not Given Atorvastatin Calcium (Lipitor) 40 mg PO HS [facility] Last Admin: 06/15/18 21:04 Dose: 40 mg Carvedilol (Coreg) 25 mg PO Q12 [facility] Last Admin: 06/16/18 08:17 Dose: Not Given Clonidine HCl (Catapres) 0.2 mg PO TID [facility] Last Admin: 06/16/18 08:17 Dose: Not Given Docusate Sodium (Colace) 100 mg PO BID [facility] Last Admin: 06/16/18 08:17 Dose: Not Given Enoxaparin Sodium (Lovenox) 40 mg SC DAILY [facility]; Protocol Last Admin: 06/16/18 08:18 Dose: Not Given Folic Acid (Folic Acid) 1 mg PO DAILY [facility] Last Admin: 06/16/18 08:18 Dose: Not Given Furosemide (Lasix) 40 mg PO DAILY [facility] Last Admin: 06/16/18 08:18 Dose: Not Given Hydralazine HCl (Apresoline) 100 mg PO TID [facility] Last Admin: 06/16/18 08:17 Dose: Not Given Hydromorphone HCl (Dilaudid) 2 mg IVP Q6 PRN PRN Reason: Pain, severe (8-10) Last Admin: 06/16/18 04:57 Dose: 2 mg Piperacillin Sod/Tazobactam (Sod 3.375 gm/ Sodium Chloride) 100 mls @ 100 mls/hr IVPB Q6 [facility]; Protocol Last Admin: 06/16/18 03:10 Dose: 100 mls/hr Insulin Detemir (Levemir) 70 units SC HS [facility] Last Admin: 06/15/18 21:27 Dose: Not Given Insulin Human Regular (Humulin R) 30 units SC TID [facility] Last Admin: 06/16/18 08:18 Dose: Not Given Insulin Human Regular (Humulin R) 0 units SC ACHS [facility]; Protocol Last Admin: 06/16/18 07:24 Dose: Not Given Lanthanum Carbonate (Fosrenol) 500 mg PO TID [facility] Last Admin: 06/16/18 08:18 Dose: Not Given Morphine Sulfate (Morphine Extended Release Tab) 30 mg PO Q12 [facility] Last Admin: 06/16/18 08:18 Dose: Not Given Psyllium Hydrophilic Mucilloid (Hydrocil Instant) 1 pkt PO DAILY [facility] Last Admin: 06/16/18 08:18 Dose: Not Given - Labs Labs: 06/15/18 04:30 06/15/18 04:30 PT 11.4 Seconds (9.8-13.1) 06/10/18 12:30 INR 1.0 06/10/18 12:30 APTT 34.0 Seconds (25.6-37.1) 06/10/18 12:30 - Constitutional Appears: Well - Head Exam Head Exam: ATRAUMATIC, NORMAL INSPECTION, NORMOCEPHALIC - Eye Exam Eye Exam: EOMI, Normal appearance, PERRL Pupil Exam: NORMAL ACCOMODATION, PERRL - ENT Exam ENT Exam: Mucous Membranes Moist, Normal Exam - Neck Exam Neck Exam: Full ROM, Normal Inspection. absent: Lymphadenopathy - Respiratory Exam Respiratory Exam: Clear to Ausculation Bilateral, NORMAL BREATHING PATTERN - Cardiovascular Exam Cardiovascular Exam: REGULAR RHYTHM, +S1, +S2. absent: Murmur - GI/Abdominal Exam GI & Abdominal Exam: Soft, Normal Bowel Sounds. absent: Tenderness - Extremities Exam Extremities Exam: Full ROM, Normal Capillary Refill, Normal Inspection. absent: Joint Swelling, Pedal Edema - Back Exam Back Exam: NORMAL INSPECTION - Neurological Exam Neurological Exam: Alert, Awake, CN II-XII Intact, Normal Gait, Oriented x3 - Psychiatric Exam Psychiatric exam: Normal Affect, Normal Mood - Skin Skin Exam: Dry, Intact, Normal Color, Warm Assessment and Plan (1) Preop cardiovascular exam Assessment & Plan: s/p LHCx showing severe ISR of LAD and LCx high risk for any procedure prior to revascularization Status: Acute (2) CAD (coronary artery disease) Assessment & Plan: Severe ISR ( in-stent restenosis of LAD and LCx ) dapt statins bb plan for PCI [place] [facility] Status: Acute (3) CHF (congestive heart failure) Assessment & Plan: dc clonidine cont norvasc, coreg and hydralazine add arb/hctz Status: Acute (4) Chronic kidney disease Assessment & Plan: Cr stable at 1.3 Status: Acute (5) Essential hypertension Status: Chronic (6) Hypertension Status: Chronic
--- NOTE | 2018-06-16 08:41 | PN ---
DATE: 06/15/2018 SUBJECTIVE: The patient seen and examined. Interim events noted. Consults noted and appreciated. The patient is status post stress test, scheduled for surgery tomorrow. The patient feels okay. Pain is adequately controlled. No new complaint of chest pain. No shortness of breath. PHYSICAL EXAMINATION: GENERAL: The patient is in no acute distress. VITAL SIGNS: Stable. HEART: S1, S2 normal and regular. LUNGS: Good bilateral air exchange. ABDOMEN: Soft, nontender. EXTREMITIES: The patient has left lower extremity external fixator. No sign of acute complication. No edema. No calf swelling. No tenderness. No acute ischemia. [employer]: Exam is essentially unchanged. DIAGNOSTIC DATA: Available diagnostic data reviewed. Stress test result is pending. ASSESSMENT AND PLAN: Overall, the patient is medically stable. Plan as ordered. Tushar Jarrell MD
--- NOTE | 2018-06-16 10:44 | PN ---
DATE: 06/16/2018 SUBJECTIVE: The patient is for cardiac cath. Not able to examine the patient today. We will wait until returns. Plan as ordered. Tushar Jarrell MD
--- NOTE | 2018-06-16 18:32 | CP.PCM.PN ---
Subjective - Date & Time of Evaluation Date of Evaluation: 06/16/18 Time of Evaluation: 08:00 - Subjective Subjective: awaiting intervention IV rx renewed afeb Objective - Vital Signs/Intake and Output Vital Signs (last 24 hours): Temp Pulse Resp BP Pulse Ox 98.2 F 76 18 139/66 94 L 06/16/18 16:36 06/16/18 16:36 06/16/18 16:36 06/16/18 16:40 06/16/18 16:36 - Medications Medications: Current Medications Alprazolam (Xanax) 0.25 mg PO Q12 PRN PRN Reason: Anxiety Stop: 06/21/18 11:59 Last Admin: 06/15/18 23:59 Dose: 0.25 mg Amlodipine Besylate (Norvasc) 10 mg PO DAILY [facility] Last Admin: 06/16/18 08:19 Dose: Not Given Aspirin (Aspirin) 325 mg PO DAILY [facility] Last Admin: 06/16/18 08:17 Dose: Not Given Atorvastatin Calcium (Lipitor) 40 mg PO HS [facility] Last Admin: 06/15/18 21:04 Dose: 40 mg Carvedilol (Coreg) 25 mg PO Q12 [facility] Last Admin: 06/16/18 08:17 Dose: Not Given Clonidine HCl (Catapres) 0.2 mg PO TID [facility] Last Admin: 06/16/18 16:40 Dose: 0.2 mg Docusate Sodium (Colace) 100 mg PO BID [facility] Last Admin: 06/16/18 16:41 Dose: 100 mg Enoxaparin Sodium (Lovenox) 40 mg SC DAILY [facility]; Protocol Last Admin: 06/16/18 08:18 Dose: Not Given Folic Acid (Folic Acid) 1 mg PO DAILY [facility] Last Admin: 06/16/18 08:18 Dose: Not Given Furosemide (Lasix) 40 mg PO DAILY [facility] Last Admin: 06/16/18 08:18 Dose: Not Given Hydralazine HCl (Apresoline) 100 mg PO TID [facility] Last Admin: 06/16/18 16:41 Dose: 100 mg Hydromorphone HCl (Dilaudid) 2 mg IVP Q6 PRN PRN Reason: Pain, severe (8-10) Last Admin: 06/16/18 16:35 Dose: 2 mg Piperacillin Sod/Tazobactam (Sod 3.375 gm/ Sodium Chloride) 100 mls @ 100 mls/hr IVPB Q6 [facility]; Protocol Last Admin: 06/16/18 16:42 Dose: 100 mls/hr Insulin Detemir (Levemir) 70 units SC HS [facility] Last Admin: 06/15/18 21:27 Dose: Not Given Insulin Human Regular (Humulin R) 30 units SC TID [facility] Last Admin: 06/16/18 18:12 Dose: 30 units Insulin Human Regular (Humulin R) 0 units SC ACHS [facility]; Protocol Last Admin: 06/16/18 16:40 Dose: 10 units Lanthanum Carbonate (Fosrenol) 500 mg PO TID [facility] Last Admin: 06/16/18 16:41 Dose: 500 mg Morphine Sulfate (Morphine Extended Release Tab) 30 mg PO Q12 [facility] Last Admin: 06/16/18 12:38 Dose: 30 mg Psyllium Hydrophilic Mucilloid (Hydrocil Instant) 1 pkt PO DAILY [facility] Last Admin: 06/16/18 08:18 Dose: Not Given - Labs Labs: 06/15/18 04:30 06/15/18 04:30 PT 11.4 Seconds (9.8-13.1) 06/10/18 12:30 INR 1.0 06/10/18 12:30 APTT 34.0 Seconds (25.6-37.1) 06/10/18 12:30 - Constitutional Appears: Non-toxic, Chronically Ill - Head Exam Head Exam: NORMOCEPHALIC - Eye Exam Eye Exam: absent: Scleral icterus - ENT Exam ENT Exam: Mucous Membranes Dry - Neck Exam Neck Exam: absent: Lymphadenopathy - Respiratory Exam Respiratory Exam: Decreased Breath Sounds - Cardiovascular Exam Cardiovascular Exam: REGULAR RHYTHM - GI/Abdominal Exam GI & Abdominal Exam: Distended - Rectal Exam Rectal Exam: Deferred Assessment and Plan (1) Foot pain Status: Acute (2) Foot ulcer Status: Chronic (3) CAD (coronary artery disease) Status: Acute
[2018-06-16] MEDS: Insulin Detemir 100 Units/ml Inj SC SCH (21:56)
[2018-06-17] MEDS: Sodium Chloride 0.9% 1,000 ML IV SCH ×2 (00:20→00:54)
[2018-06-17] MEDS: Piperacillin/Tazobact 3.375 GM in Sodium Chloride 0.9% 100 ML IVPB SCH ×4 (04:33→22:00)
--- NOTE | 2018-06-17 07:51 | PN ---
DATE: 06/17/2018 SUBJECTIVE: The patient seen and examined. Interim events noted. Consults noted and appreciated. Cardiology followup and intervention noted and appreciated. The patient with multivessel blockage and coronaries and going for angioplasty today. The patient is awake, responsive, feels okay. Denies any chest pain. No shortness of breath. ____ being adequately controlled. PHYSICAL EXAMINATION: GENERAL: The patient is in no acute distress. VITAL SIGNS: Stable. HEART EXAM: S1, S2 normal and regular. LUNGS: Good bilateral air exchange. ABDOMEN: Soft and nontender. EXTREMITIES: The patient has left lower extremity external fixator. No sign of distal complication. No edema. No calf swelling. No tenderness. No acute ischemia. CENTRAL NERVOUS EXAM: Essentially unchanged. DIAGNOSTIC DATA: Available diagnostic data reviewed. ASSESSMENT AND PLAN: Of note, the patient is medically stable. The patient is for cardiac intervention today at [facility]. Plan as ordered. Case and plan discussed with the patient. Tushar Jarrell MD Job # [id number]
[2018-06-17] MEDS: Insulin Regular 100 units/ml SC SCH ×5 (08:41→22:10)
[2018-06-17] MEDS: Enoxaparin 40 mg Syringe SC SCH (09:13)
[2018-06-17] MEDS: Psyllium Packet PO SCH (09:13)
[2018-06-17] MEDS: Morphine 30 mg SR Tab PO SCH ×2 (09:14→22:00)
--- NOTE | 2018-06-17 10:07 | VASCULAR ---
PROCEDURE: Date of procedure: 06/13/2018 Procedure: 1. Placement of a right arm PICC with ultrasound and fluoroscopic guidance, CPT 68495 2. PICC tip confirmation with spot radiograph and is in the superior vena cava Medications: 1 percent lidocaine Total Fluoro time: 2.9 Seconds Radiation: 0.57 MGy EBL: 2 cc HISTORY: Infection requiring long-term IV antibiotics TECHNIQUE: Following informed consent and procedure time-out, the patient was placed supine on the interventional table and the right arm prepped and draped in the usual sterile fashion. Ultrasound showed a patent and compressible right basilic vein. After the skin was anesthetized with lidocaine, the basilic vein was accessed with micro micropuncture technique using ultrasound guidance. A guidewire was then advanced under fluoroscopic guidance into the superior vena cava. An image documenting ultrasound guidance for vascular access was permanently saved. The length of the single-lumen 4 [place] PICC was trimmed to 37 centimeters and advanced through a peel-away sheath. The PICC was position with tip of PICC confirm a spot radiograph the superior vena cava. The PICC was secured to the patient's skin. The PICC was flushed. A biopatch and sterile dressing was applied. IMPRESSION: Placement of a single-lumen 4 [place]ian PICC trimmed to 37 centimeters via right basilic vein. The tip of the PICC is confirmed with spot radiograph and is in the superior vena cava.
--- NOTE | 2018-06-17 14:26 | CP.PCM.CON ---
History of Present Illness - History of Present Illness History of Present Illness: Donnie Dykes, PGY1 ICU Consult Note for Dr. Cuevas cc: "sob/hypoxic" Patient is a 52 y/o F with PMHx Anemia, Anxiety, Arthritis, HTN, DM, HLD, CAD (stents x2), CHF, CVA, Depression, who initially presented to the ED on 06/10 for chronic L foot ulcer s/p L-foot charcot neuroarthropathy reconstruction using an external fixation device (03/28). This procedure was complicated by post-op DC with recent CHF exacerbation. She was scheduled for removal of external fixator. Cardiology was consulted for pre-op clearance. Due to high cardiac risk factors, patient needed a nuclear stress test. Results of nuclear stress test was abnormal, indicating anterolateral ischemia. As a result, patient went for cardiac cath. Results of left heart cath showed in-stent restenosis of the LAD and LCx coronary arteries. Patient went for PCI today. However, after the procedure she started experiencing shortness of breath and patient became hypoxic. Patient was sent to ICU for monitoring. Patient placed on CPAP 10 with 70% FiO2. Upon arrival, patient said that she felt better. Shortness of breath improved. She endorses a mild headache. Otherwise, she denies cp, lightheadedness, dizziness, blurry vision, abdominal pain, nausea, vomiting. Patient is now saturating well. BP was normotensive but she did have a period of HTN episode, SBP 180s. A full 12 point ROS was conducted and unremarkable except as stated above. PMH: HTN, DM, CAD, CHF, severe cardiomyopathy chronic back pain, anxiety, anemia. PSH: appendectomy, R transmetatarsal amputation, Charcot deformity in L foot, cardiac stent x2. Meds: see SEP Allergies: NKDA SH: denies EtOH, tobacco or ilicit drug use Review of Systems - Review of Systems All systems: reviewed and no additional remarkable complaints except (as per HPI) Past Patient History - Infectious Disease Hx of Infectious Diseases: None - Tetanus Immunizations Tetanus Immunization: Unknown - Past Medical History & Family History Past Medical History?: Yes - Past Social History Alcohol: None Drugs: Denies - CARDIAC Hx Congestive Heart Failure: Yes Hx Hypercholesterolemia: Yes Hx Hypertension: Yes Hx Peripheral Vascular Disease: Yes - PULMONARY Hx Chronic Obstructive Pulmonary Disease (COPD): No - NEUROLOGICAL Hx Seizures: No - HEENT Hx HEENT Problems: No - RENAL Hx Chronic Kidney Disease: No - ENDOCRINE/METABOLIC Hx Hypothyroidism: No - HEMATOLOGICAL/ONCOLOGICAL Hx Anemia: Yes Hx Human Immunodeficiency Virus (HIV): No - INTEGUMENTARY Hx Dermatological Problems: Yes Hx Cellulitis: Yes Other/Comment: Gangrene right 2nd toe - MUSCULOSKELETAL/RHEUMATOLOGICAL Hx Arthritis: Yes (WALKER) - GASTROINTESTINAL Hx Gastrointestinal Disorders: Yes - GENITOURINARY/GYNECOLOGICAL Hx Sexually Transmitted Disorders: No - PSYCHIATRIC Hx Anxiety: Yes Hx Depression: Yes - SURGICAL HISTORY Hx Appendectomy: Yes Hx Coronary Stent: Yes - ANESTHESIA Hx Anesthesia: Yes Hx Anesthesia Reactions: Yes (CAN'T BREATH-ADMITTED TO ICU) Hx Malignant Hyperthermia: No Meds Allergies/Adverse Reactions: Allergies Allergy/AdvReac Type Severity Reaction Status Date / Time No Known Allergies Allergy Verified 06/10/18 11:32 - Medications Medications: Current Medications Alprazolam (Xanax) 0.25 mg PO Q12 PRN PRN Reason: Anxiety Stop: 06/21/18 11:59 Last Admin: 06/15/18 23:59 Dose: 0.25 mg Amlodipine Besylate (Norvasc) 10 mg PO DAILY [facility] Last Admin: 06/17/18 09:14 Dose: Not Given Aspirin (Aspirin) 325 mg PO DAILY [facility] Last Admin: 06/17/18 09:11 Dose: Not Given Atorvastatin Calcium (Lipitor) 40 mg PO HS [facility] Last Admin: 06/16/18 21:55 Dose: 40 mg Carvedilol (Coreg) 25 mg PO Q12 [facility] Last Admin: 06/17/18 09:11 Dose: Not Given Docusate Sodium (Colace) 100 mg PO BID [facility] Last Admin: 06/17/18 09:11 Dose: Not Given Folic Acid (Folic Acid) 1 mg PO DAILY [facility] Last Admin: 06/17/18 09:12 Dose: Not Given Furosemide (Lasix) 40 mg PO DAILY [facility] Last Admin: 06/17/18 09:13 Dose: Not Given Hydralazine HCl (Apresoline) 100 mg PO TID [facility] Last Admin: 06/17/18 09:10 Dose: Not Given Hydromorphone HCl (Dilaudid) 2 mg IVP Q6 PRN PRN Reason: Pain, severe (8-10) Last Admin: 06/17/18 06:20 Dose: 2 mg Piperacillin Sod/Tazobactam (Sod 3.375 gm/ Sodium Chloride) 100 mls @ 100 mls/hr IVPB Q6 [facility]; Protocol Last Admin: 06/17/18 09:14 Dose: Not Given Insulin Detemir (Levemir) 70 units SC HS [facility] Last Admin: 06/16/18 21:56 Dose: Not Given Insulin Human Regular (Humulin R) 30 units SC TID [facility] Last Admin: 06/17/18 09:13 Dose: Not Given Insulin Human Regular (Humulin R) 0 units SC ACHS [facility]; Protocol Last Admin: 06/17/18 08:41 Dose: Not Given Lanthanum Carbonate (Fosrenol) 500 mg PO TID [facility] Last Admin: 06/17/18 09:12 Dose: Not Given Morphine Sulfate (Morphine Extended Release Tab) 30 mg PO Q12 [facility] Last Admin: 06/17/18 09:14 Dose: Not Given Psyllium Hydrophilic Mucilloid (Hydrocil Instant) 1 pkt PO DAILY [facility] Last Admin: 06/17/18 09:13 Dose: Not Given Physical Exam - Constitutional Appears: No Acute Distress - Head Exam Head Exam: ATRAUMATIC, NORMAL INSPECTION, NORMOCEPHALIC - Eye Exam Eye Exam: EOMI, Normal appearance, PERRL - ENT Exam ENT Exam: Mucous Membranes Moist Additional comments: CPAP in place - Respiratory Exam Respiratory Exam: Clear to Auscultation Bilateral. absent: Rales, Rhonchi, Wheezes, Respiratory Distress - Cardiovascular Exam Cardiovascular Exam: RRR, +S1, +S2 - GI/Abdominal Exam GI & Abdominal Exam: Normal Bowel Sounds, Soft. absent: Firm, Rigid, Tenderness - Extremities Exam Additional comments: External fixation device in place at the left lower extremity/foot, wrapped in bandage. Low extremity ulcers noted bilaterally. Distal pulses are +1 in the left lower ext and +2 in the right lower ext. Left groin cath site noted; dressing in-tact with no bleeding or hematoma. - Neurological Exam Neurological exam: Alert, Oriented x3 - Skin Skin Exam: Dry, Intact, Normal Color, Warm Results - Vital Signs Recent Vital Signs: Last Vital Signs Temp 97.8 F 06/17/18 07:59 Pulse 81 06/17/18 08:53 Resp 19 06/17/18 08:53 BP 152/85 H 11/30/18 08:53 Pulse Ox 95 06/17/18 08:53 - Labs Result Diagrams: 06/15/18 04:30 06/15/18 04:30 Labs: Laboratory Results - last 24 hr 06/16/18 06/16/18 06/17/18 16:39 21:20 05:28 POC Glucose (mg/dL) 406 H* 139 H 262 H Assessment & Plan - Assessment and Plan (Free Text) Assessment: Patient is a 52 y/o F with PMHx Anemia, Anxiety, Arthritis, HTN, DM, HLD, CAD (stents x2), CHF, CVA, Depression, who initially presented to the ED on 06/10 for chronic L foot ulcer s/p L-foot charcot neuroarthropathy reconstruction using an external fixation device (03/28). Patient's procedure was complicated by post-op DC. Patient was pending clearance by cardio for removal of external fixator of the left foot however, patient found to have severe in-stent restenosis. As a result, she went for cardiac cath and PCI. Patient had shortness of breath after the procedure and was admitted to ICU for monitoring. Plan: Neuro: - AAOx3 - Baseline mental status Cardio: - s/p left heart cath with complication of flash pulmonary edema and hypertension - SBP noted to be trending upwards to 180s in the ICU - For hypertension, may administer nitroglycerin - c/w ASA, beta ash, calcium channel ash, statin - continue to monitor vitals and distal lower extremity pulses - c/w dilaudid for pain control - Maintain MAP > 65 Pulm: - shortness of breath s/p cath; complication of flash pulmonary edema - Lasix 40mg IVP administered - cpap - Maintain SaO2> 92% GI: - No acute issues at this time - NPO Renal: - No acute issues at this time Heme - H/H stable - No hematoma or bleeding noted at cath site ID: - No active issues at this time - afebrile Dispo: Patient is being monitored in the ICU for flash pulmonary edema and HTN s/p cardiac cath. Plan for transfer to [facility]. Case was discussed and reviewed with Attending Physician, Dr. Cuevas
[2018-06-17] MEDS: Insulin Detemir 100 Units/ml Inj SC SCH (22:00)
[2018-06-18] MEDS: Piperacillin/Tazobact 3.375 GM in Sodium Chloride 0.9% 100 ML IVPB SCH ×4 (03:19→21:23)
[2018-06-18] MEDS: Insulin Regular 100 units/ml SC SCH ×7 (07:27→21:39)
[2018-06-18] MEDS: Morphine 30 mg SR Tab PO SCH ×2 (08:49→21:20)
[2018-06-18] MEDS: Psyllium Packet PO SCH (10:06)
--- NOTE | 2018-06-18 12:09 | PN ---
DATE: 06/18/2018 SUBJECTIVE: The patient seen and examined. Interim events noted. Consults noted and appreciated. Cardiology followup and procedure and angioplasty noted and appreciated. Case was discussed with educational guidance counselor, discussed at length. The patient still needs further optimization. cardiac barba before surgery. The patient feels okay . PHYSICAL EXAMINATION: GENERAL: The patient is in no acute distress. VITAL SIGNS: Stable. HEART: S1, S2 normal and regular. LUNGS: Good bilateral air exchange. ABDOMEN: Soft, nontender. EXTREMITY EXAM: No edema. No calf swelling. No tenderness. No acute ischemia. CENTRAL NERVOUS SYSTEM: Exam is essentially unchanged. The patient's external fixator is in good positioning and no sign of acute complications. DIAGNOSTIC DATA: Available diagnostic data reviewed. Cardiac cath report and intervention report reviewed. PLAN: As mentioned earlier, plan was discussed with educational guidance counselor. Case and plan also discussed with patient at length. Plan as ordered. Tushar Jarrell MD
--- NOTE | 2018-06-18 12:24 | CP.PCM.PN ---
Subjective - Date & Time of Evaluation Date of Evaluation: 06/18/18 Time of Evaluation: 12:24 - Subjective Subjective: Podiatry - Dr. Macdonald 52F seen and evaluated this AM. Family present at bedside. Patient s/p cardiac cath with PCI with complication of flash pulmonary edema and hypertension at [place] yesterday. Patient states she is feeling well since procedure. No new complaints with external fixator. Denies n/v/f/d/c/sob. Objective - Vital Signs/Intake and Output Vital Signs (last 24 hours): Temp Pulse Resp BP Pulse Ox 98.6 F 89 20 182/75 H 97 06/18/18 07:36 06/18/18 10:05 06/18/18 07:36 06/18/18 10:05 06/18/18 07:36 - Medications Medications: Current Medications Alprazolam (Xanax) 0.25 mg PO Q12 PRN PRN Reason: Anxiety Stop: 06/21/18 11:59 Last Admin: 06/18/18 01:17 Dose: 0.25 mg Amlodipine Besylate (Norvasc) 10 mg PO DAILY [facility] Last Admin: 06/18/18 08:42 Dose: 10 mg Aspirin (Aspirin) 325 mg PO DAILY [facility] Last Admin: 06/18/18 08:48 Dose: 325 mg Atorvastatin Calcium (Lipitor) 40 mg PO HS [facility] Last Admin: 06/17/18 22:00 Dose: Not Given Carvedilol (Coreg) 25 mg PO Q12 [facility] Last Admin: 06/18/18 10:05 Dose: 25 mg Docusate Sodium (Colace) 100 mg PO BID [facility] Last Admin: 06/18/18 08:36 Dose: 100 mg Folic Acid (Folic Acid) 1 mg PO DAILY [facility] Last Admin: 06/18/18 08:38 Dose: 1 mg Furosemide (Lasix) 40 mg PO DAILY [facility] Last Admin: 06/18/18 08:41 Dose: 40 mg Hydralazine HCl (Apresoline) 100 mg PO TID [facility] Last Admin: 06/18/18 08:35 Dose: 100 mg Hydromorphone HCl (Dilaudid) 2 mg IVP Q6 PRN PRN Reason: Pain, severe (8-10) Last Admin: 06/18/18 06:22 Dose: 2 mg Piperacillin Sod/Tazobactam (Sod 3.375 gm/ Sodium Chloride) 100 mls @ 100 mls/hr IVPB Q6 [facility]; Protocol Last Admin: 06/18/18 09:18 Dose: 100 mls/hr Insulin Detemir (Levemir) 70 units SC HS [facility] Last Admin: 06/17/18 22:00 Dose: Not Given Insulin Human Regular (Humulin R) 30 units SC TID [facility] Last Admin: 06/18/18 08:38 Dose: 30 units Insulin Human Regular (Humulin R) 0 units SC ACHS [facility]; Protocol Last Admin: 06/18/18 07:27 Dose: 8 units Lanthanum Carbonate (Fosrenol) 500 mg PO TID [facility] Last Admin: 06/18/18 08:38 Dose: 500 mg Morphine Sulfate (Morphine Extended Release Tab) 30 mg PO Q12 [facility] Last Admin: 06/18/18 08:49 Dose: 30 mg Psyllium Hydrophilic Mucilloid (Hydrocil Instant) 1 pkt PO DAILY [facility] Last Admin: 06/18/18 10:06 Dose: 1 pkt - Labs Labs: 06/15/18 04:30 06/15/18 04:30 PT 11.4 Seconds (9.8-13.1) 06/10/18 12:30 INR 1.0 06/10/18 12:30 APTT 34.0 Seconds (25.6-37.1) 06/10/18 12:30 - Constitutional Appears: Non-toxic, No Acute Distress - Extremities Exam Additional comments: Vasc: DP/PT pulses palpable 1/4 on the right. Unable to assess DP/PT to left secondary to obstruction from external fixation device, cap refill on left foot <3 to all digits, refill time to distal right foot WNL Neuro: protective sensation absent bilaterally Derm: dressing clean and dry without strike-through, no drainage, pin sites are clean, no erythema, no streaking, no fluctanance, no clinical signs of infection bilaterally left: hyperkeratotic ulcer noted at the medial plantar midfoot, no drainage, no probe to bone, healing noted, hyperkeratotic border and base, no malodor, no clinical signs of infection. right: Stable superficial wounds noted throughout anterior leg MSK: No pain on palpation noted bilaterally - Neurological Exam Neurological Exam: Alert, Awake, Oriented x3 - Psychiatric Exam Psychiatric exam: Normal Affect, Normal Mood Assessment and Plan - Assessment and Plan (Free Text) Assessment: 52F s/p left foot charcot neuroarthropathy reconstruction with external fixation (03/28) Plan: Patient seen and evaluated Discussed with attending, Dr. Torres TAYLOR [place] cardiac [place] [facility] [place] - post procedure had HTN, SOB likely from hypertensive pulmonary edema and was transferred [place] [facility] [place] for monitoring -f/u Dr. Smiley when patient may proceed with GABRIEL Dressing reapplied to E Podiatry will continue to follow
[2018-06-18] MEDS: Insulin Detemir 100 Units/ml Inj SC SCH (21:40)
[2018-06-18] MEDS ORDERED: Morphine 4 MG/ML VIAL IVP ONE (22:28)
[2018-06-19] MEDS: Piperacillin/Tazobact 3.375 GM in Sodium Chloride 0.9% 100 ML IVPB SCH ×4 (03:25→21:27)
[2018-06-19 07:13] LABS: HEMOGLOBIN 9.5 g/dL (12.0-16.0); MEAN CELL VOLUME 85.4 fl (81.0-99.0); MEAN CORPUSCULAR HEMOGLOBIN 28.7 pg (27.0-31.0); MEAN CORPUSCULAR HGB CONC 33.6 g/dL (33.0-37.0); RBC 3.31 Mil/uL (3.80-5.20); RED CELL DISTRIBUTION WIDTH 16.5 % (11.5-14.5); WHITE BLOOD COUNT 8.1 K/uL (4.8-10.8)
[2018-06-19] MEDS: Insulin Regular 100 units/ml SC SCH ×7 (07:30→22:09)
[2018-06-19 07:36] LABS: ALBUMIN 3.5 g/dL (3.5-5.0); CALCIUM 9.8 mg/dL (8.4-10.2)
[2018-06-19] MEDS: Psyllium Packet PO SCH (08:38)
[2018-06-19] MEDS: Morphine 30 mg SR Tab PO SCH ×2 (08:44→21:09)
--- NOTE | 2018-06-19 11:21 | PN ---
DATE: 06/19/2018 SUBJECTIVE: The patient seen and examined. Interim events noted. Consults noted and appreciated. The patient had episodes of pain and increased blood pressure, and medication was readjusted. The patient currently complains more of back pain, which is chronic in nature. The pain is adequately controlled with medication. No new complaint of chest pain or shortness of breath at this time. PHYSICAL EXAMINATION: GENERAL: The patient is in no acute distress. VITAL SIGNS: Stable. HEART: S1 and S2, normal, regular. LUNGS: Good bilateral air exchange. ABDOMEN: Soft, nontender. EXTREMITIES: No edema. No calf swelling. No tenderness. No acute ischemia. CENTRAL NERVOUS SYSTEM: Essentially unchanged. DIAGNOSTIC DATA: Available diagnostic data reviewed. ASSESSMENT: intervention noted and appreciated. PLAN: As ordered. Tushar Jarrell MD
--- NOTE | 2018-06-19 13:42 | CP.PCM.PN ---
Subjective - Date & Time of Evaluation Date of Evaluation: 06/19/18 Time of Evaluation: 08:00 - Subjective Subjective: awaiting stent placement denies chest pain or SOB Objective - Vital Signs/Intake and Output Vital Signs (last 24 hours): Temp Pulse Resp BP Pulse Ox 98.5 F 78 18 160/80 H 92 L 06/18/18 23:47 06/19/18 13:32 06/18/18 23:47 06/19/18 13:32 06/18/18 23:47 - Medications Medications: Current Medications Alprazolam (Xanax) 0.25 mg PO Q12 PRN PRN Reason: Anxiety Stop: 06/21/18 11:59 Last Admin: 06/18/18 01:17 Dose: 0.25 mg Amlodipine Besylate (Norvasc) 10 mg PO DAILY [facility] Last Admin: 06/19/18 08:39 Dose: 10 mg Aspirin (Aspirin) 325 mg PO DAILY [facility] Last Admin: 06/19/18 08:45 Dose: 325 mg Atorvastatin Calcium (Lipitor) 40 mg PO HS [facility] Last Admin: 06/18/18 21:21 Dose: 40 mg Carvedilol (Coreg) 25 mg PO Q12 [facility] Last Admin: 06/19/18 08:32 Dose: 25 mg Clonidine HCl (Catapres) 0.1 mg PO Q6 PRN PRN Reason: Systolic Blood Pressure Docusate Sodium (Colace) 100 mg PO BID [facility] Last Admin: 06/19/18 08:32 Dose: 100 mg Folic Acid (Folic Acid) 1 mg PO DAILY [facility] Last Admin: 06/19/18 08:33 Dose: 1 mg Furosemide (Lasix) 40 mg PO DAILY [facility] Last Admin: 06/19/18 08:38 Dose: 40 mg Hydralazine HCl (Apresoline) 100 mg PO TID [facility] Last Admin: 06/19/18 13:32 Dose: 100 mg Hydromorphone HCl (Dilaudid) 2 mg IVP Q6 PRN PRN Reason: Pain, severe (8-10) Last Admin: 06/19/18 08:58 Dose: 2 mg Piperacillin Sod/Tazobactam (Sod 3.375 gm/ Sodium Chloride) 100 mls @ 100 mls/hr IVPB Q6 [facility]; Protocol Last Admin: 06/19/18 09:00 Dose: 100 mls/hr Insulin Detemir (Levemir) 70 units SC HS [facility] Last Admin: 06/18/18 21:40 Dose: 70 u Insulin Human Regular (Humulin R) 30 units SC TID [facility] Last Admin: 06/19/18 13:35 Dose: 30 units Insulin Human Regular (Humulin R) 0 units SC ACHS [facility]; Protocol Last Admin: 06/19/18 11:30 Dose: 3 units Lanthanum Carbonate (Fosrenol) 500 mg PO TID [facility] Last Admin: 06/19/18 08:33 Dose: 500 mg Morphine Sulfate (Morphine Extended Release Tab) 30 mg PO Q12 [facility] Last Admin: 06/19/18 08:44 Dose: 30 mg Ondansetron HCl (Zofran Inj) 4 mg IVP Q4 PRN PRN Reason: Nausea/Vomiting Last Admin: 06/18/18 17:26 Dose: 4 mg Psyllium Hydrophilic Mucilloid (Hydrocil Instant) 1 pkt PO DAILY [facility] Last Admin: 06/19/18 08:38 Dose: 1 pkt - Labs Labs: 06/19/18 05:25 06/19/18 05:25 PT 11.4 Seconds (9.8-13.1) 06/10/18 12:30 INR 1.0 06/10/18 12:30 APTT 34.0 Seconds (25.6-37.1) 06/10/18 12:30 - Constitutional Appears: Non-toxic, Chronically Ill - Head Exam Head Exam: NORMOCEPHALIC - Eye Exam Eye Exam: absent: Scleral icterus - ENT Exam ENT Exam: Mucous Membranes Dry - Neck Exam Neck Exam: absent: Lymphadenopathy - Respiratory Exam Respiratory Exam: Decreased Breath Sounds - Cardiovascular Exam Cardiovascular Exam: REGULAR RHYTHM - GI/Abdominal Exam GI & Abdominal Exam: Distended, Soft - Rectal Exam Rectal Exam: Deferred - Exam Exam: NORMAL INSPECTION - Extremities Exam Extremities Exam: Pedal Edema. absent: Calf Tenderness, Tenderness - Back Exam Back Exam: absent: CVA tenderness (L), CVA tenderness (R) - Neurological Exam Neurological Exam: Alert, Awake, Oriented x3 Assessment and Plan (1) Foot pain Status: Acute (2) Foot ulcer Status: Chronic (3) CAD (coronary artery disease) Status: Acute - Assessment and Plan (Free Text) Assessment: for Cardiology clearance/ stent placement then hardware removal
--- NOTE | 2018-06-19 15:19 | CP.PCM.PN ---
Subjective - Date & Time of Evaluation Date of Evaluation: 06/19/18 Time of Evaluation: 15:19 - Subjective Subjective: Podiatry - Dr. Macdonald 52F seen and evaluated this AM. Patient resting comfortably, hemodynamically stable and NAD. No acute events overnight. No new complaints to LLE per patient. Dressing to LLE clean/dry/intact. Denies n/v/f/d/c/sob. Awaiting cardio recs to proceed with removal of hardware. Objective - Vital Signs/Intake and Output Vital Signs (last 24 hours): Temp Pulse Resp BP Pulse Ox 98.5 F 78 18 160/80 H 92 L 06/18/18 23:47 06/19/18 13:32 06/18/18 23:47 06/19/18 13:32 06/18/18 23:47 - Medications Medications: Current Medications Alprazolam (Xanax) 0.25 mg PO Q12 PRN PRN Reason: Anxiety Stop: 06/21/18 11:59 Last Admin: 06/18/18 01:17 Dose: 0.25 mg Amlodipine Besylate (Norvasc) 10 mg PO DAILY [facility] Last Admin: 06/19/18 08:39 Dose: 10 mg Aspirin (Aspirin) 325 mg PO DAILY [facility] Last Admin: 06/19/18 08:45 Dose: 325 mg Atorvastatin Calcium (Lipitor) 40 mg PO HS [facility] Last Admin: 06/18/18 21:21 Dose: 40 mg Carvedilol (Coreg) 25 mg PO Q12 [facility] Last Admin: 06/19/18 08:32 Dose: 25 mg Clonidine HCl (Catapres) 0.1 mg PO Q6 PRN PRN Reason: Systolic Blood Pressure Docusate Sodium (Colace) 100 mg PO BID [facility] Last Admin: 06/19/18 08:32 Dose: 100 mg Folic Acid (Folic Acid) 1 mg PO DAILY [facility] Last Admin: 06/19/18 08:33 Dose: 1 mg Furosemide (Lasix) 40 mg PO DAILY [facility] Last Admin: 06/19/18 08:38 Dose: 40 mg Hydralazine HCl (Apresoline) 100 mg PO TID [facility] Last Admin: 06/19/18 13:32 Dose: 100 mg Hydromorphone HCl (Dilaudid) 2 mg IVP Q6 PRN PRN Reason: Pain, severe (8-10) Last Admin: 06/19/18 15:15 Dose: 2 mg Piperacillin Sod/Tazobactam (Sod 3.375 gm/ Sodium Chloride) 100 mls @ 100 mls/hr IVPB Q6 [facility]; Protocol Last Admin: 06/19/18 09:00 Dose: 100 mls/hr Insulin Detemir (Levemir) 70 units SC HS [facility] Last Admin: 06/18/18 21:40 Dose: 70 u Insulin Human Regular (Humulin R) 30 units SC TID [facility] Last Admin: 06/19/18 13:35 Dose: 30 units Insulin Human Regular (Humulin R) 0 units SC ACHS [facility]; Protocol Last Admin: 06/19/18 11:30 Dose: 3 units Lanthanum Carbonate (Fosrenol) 500 mg PO TID [facility] Last Admin: 06/19/18 13:30 Dose: 500 mg Morphine Sulfate (Morphine Extended Release Tab) 30 mg PO Q12 [facility] Last Admin: 06/19/18 08:44 Dose: 30 mg Ondansetron HCl (Zofran Inj) 4 mg IVP Q4 PRN PRN Reason: Nausea/Vomiting Last Admin: 06/18/18 17:26 Dose: 4 mg Psyllium Hydrophilic Mucilloid (Hydrocil Instant) 1 pkt PO DAILY [facility] Last Admin: 06/19/18 08:38 Dose: 1 pkt - Labs Labs: 06/19/18 05:25 06/19/18 05:25 PT 11.4 Seconds (9.8-13.1) 06/10/18 12:30 INR 1.0 06/10/18 12:30 APTT 34.0 Seconds (25.6-37.1) 06/10/18 12:30 - Constitutional Appears: Well, Non-toxic, No Acute Distress - Extremities Exam Additional comments: LLE focused physical exam Dressing clean/dry/intact with external fixator Neurovascular status intact Digital ROM present No pain upon calf compression - Neurological Exam Neurological Exam: Alert, Awake, Oriented x3 - Psychiatric Exam Psychiatric exam: Normal Affect, Normal Mood Assessment and Plan - Assessment and Plan (Free Text) Assessment: 52F 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 Macdonald Afebrile, WBC 8.1 Patient s/p cardiac cath at [facility] 06/17 - post procedure had HTN, SOB likely from hypertensive pulmonary edema and was transferred to [facility] ICU for monitoring -f/u Dr. Smiley when patient may proceed with GABRIEL LLE dressing left intact, will continue to monitor Podiatry will continue to follow
[2018-06-19] MEDS: Insulin Detemir 100 Units/ml Inj SC SCH (22:11)
[2018-06-20] MEDS: Piperacillin/Tazobact 3.375 GM in Sodium Chloride 0.9% 100 ML IVPB SCH ×4 (03:56→21:36)
[2018-06-20 06:29] LABS: HEMOGLOBIN 9.8 g/dL (12.0-16.0); MEAN CELL VOLUME 86.1 fl (81.0-99.0); MEAN CORPUSCULAR HEMOGLOBIN 28.6 pg (27.0-31.0); MEAN CORPUSCULAR HGB CONC 33.3 g/dL (33.0-37.0); RBC 3.43 Mil/uL (3.80-5.20); RED CELL DISTRIBUTION WIDTH 16.6 % (11.5-14.5); WHITE BLOOD COUNT 6.8 K/uL (4.8-10.8)
[2018-06-20 06:44] LABS: ALB/GLOB RATIO 0.9 (1.0-2.1); ALBUMIN 3.5 g/dL (3.5-5.0); CALCIUM 9.3 mg/dL (8.4-10.2)
[2018-06-20] MEDS: Insulin Regular 100 units/ml SC SCH ×7 (07:32→21:54)
[2018-06-20] MEDS: Morphine 30 mg SR Tab PO SCH ×2 (09:04→21:07)
[2018-06-20] MEDS: Psyllium Packet PO SCH (09:06)
--- NOTE | 2018-06-20 11:33 | CARD ---
APPROVED REPORT Date of service: 06/18/2018 EKG Measurement Heart [id number] <Conclusion> Normal sinus rhythm Septal infarct, age undetermined Prolonged QT Abnormal ECG
--- NOTE | 2018-06-20 12:43 | PN ---
DATE: 06/20/2018 SUBJECTIVE: The patient seen and examined. Interim events noted. Consults noted and appreciated. The patient remains in regular medical floor with left leg external fixator. The patient feels okay. Telephone orders for high blood pressures were given. The patient denied any chest pain or shortness of breath. Other chronic arthritic pain is adequately controlled with medication. PHYSICAL EXAMINATION: GENERAL: The patient is in no acute distress. VITAL SIGNS: Stable. HEART: S1, S2 normal and regular. LUNGS: Good bilateral air exchange. ABDOMEN: Soft, nontender. EXTREMITIES, as mentioned earlier the patient has left lower extremity external fixator. No sign of complication. No edema. No calf swelling. No tenderness. No acute ischemia. CENTRAL NERVOUS SYSTEM: Exam is essentially unchanged. DIAGNOSTIC DATA: Available diagnostic data reviewed. ASSESSMENT AND PLAN: Overall, the patient's general medical condition is stable. Plan as ordered. Tushar Jarrell MD
--- NOTE | 2018-06-20 13:14 | RAD ---
Date of service: 06/20/2018 HISTORY: S/p cardiac cath COMPARISON: 06/10/2018 FINDINGS: LUNGS: No active pulmonary disease. PLEURA: No significant pleural effusion identified, no pneumothorax apparent. CARDIOVASCULAR: No atherosclerotic calcification present PICC line in satisfactory position OSSEOUS STRUCTURES: No significant abnormalities. VISUALIZED UPPER ABDOMEN: Normal. OTHER FINDINGS: None. IMPRESSION: Satisfactory position of recently placed PICC line. No active disease. No acute/significant interval changes.
--- NOTE | 2018-06-20 14:17 | CP.PCM.PN ---
Subjective - Date & Time of Evaluation Date of Evaluation: 06/20/18 Time of Evaluation: 14:14 - Subjective Subjective: Podiatry progress note for Dr. Macdonald 52 y/o female seen and evaluated this AM. Patient s/p cardiac cath with PCI with complication of flash pulmonary edema and hypertension at [place] yesterday. Patient pending one more procedure with Dr. Smiley. Patient states she is aware. Patient states she is feeling well since procedure. No new complaints with external fixator. Denies n/v/f/d/c/sob. Objective - Vital Signs/Intake and Output Vital Signs (last 24 hours): Temp Pulse Resp BP Pulse Ox 97.9 F 76 20 165/78 H 96 06/20/18 08:19 06/20/18 13:02 06/20/18 08:19 06/20/18 13:02 06/20/18 08:19 - Medications Medications: Current Medications Alprazolam (Xanax) 0.25 mg PO Q12 PRN PRN Reason: Anxiety Stop: 06/21/18 11:59 Last Admin: 06/20/18 13:08 Dose: 0.25 mg Amlodipine Besylate (Norvasc) 10 mg PO DAILY [facility] Last Admin: 06/20/18 09:06 Dose: 10 mg Aspirin (Aspirin) 325 mg PO DAILY [facility] Last Admin: 06/20/18 09:14 Dose: 325 mg Atorvastatin Calcium (Lipitor) 40 mg PO HS [facility] Last Admin: 06/19/18 21:05 Dose: 40 mg Carvedilol (Coreg) 25 mg PO Q12 [facility] Last Admin: 06/20/18 09:07 Dose: 25 mg Clonidine HCl (Catapres) 0.1 mg PO Q6 PRN PRN Reason: Systolic Blood Pressure Last Admin: 06/20/18 09:05 Dose: 0.1 mg Clopidogrel Bisulfate (Plavix) 75 mg PO DAILY [facility] Docusate Sodium (Colace) 100 mg PO BID [facility] Last Admin: 06/20/18 09:07 Dose: 100 mg Folic Acid (Folic Acid) 1 mg PO DAILY [facility] Last Admin: 06/20/18 09:07 Dose: 1 mg Furosemide (Lasix) 40 mg PO DAILY [facility] Last Admin: 06/20/18 09:05 Dose: 40 mg Hydralazine HCl (Apresoline) 100 mg PO TID [facility] Last Admin: 06/20/18 13:02 Dose: 100 mg Hydromorphone HCl (Dilaudid) 2 mg IVP Q6 PRN PRN Reason: Pain, severe (8-10) Last Admin: 06/20/18 10:59 Dose: 2 mg Piperacillin Sod/Tazobactam (Sod 3.375 gm/ Sodium Chloride) 100 mls @ 100 mls/hr IVPB Q6 [facility]; Protocol Last Admin: 06/20/18 09:06 Dose: 100 mls/hr Insulin Detemir (Levemir) 70 units SC HS [facility] Last Admin: 06/19/18 22:11 Dose: 70 u Insulin Human Regular (Humulin R) 30 units SC TID [facility] Last Admin: 06/20/18 13:02 Dose: 30 units Insulin Human Regular (Humulin R) 0 units SC ACHS [facility]; Protocol Last Admin: 06/20/18 13:01 Dose: 3 units Lanthanum Carbonate (Fosrenol) 500 mg PO TID [facility] Last Admin: 06/20/18 13:02 Dose: 500 mg Morphine Sulfate (Morphine Extended Release Tab) 30 mg PO Q12 [facility] Last Admin: 06/20/18 09:04 Dose: 30 mg Ondansetron HCl (Zofran Inj) 4 mg IVP Q4 PRN PRN Reason: Nausea/Vomiting Last Admin: 06/18/18 17:26 Dose: 4 mg Psyllium Hydrophilic Mucilloid (Hydrocil Instant) 1 pkt PO DAILY [facility] Last Admin: 06/20/18 09:06 Dose: 1 pkt - Labs Labs: 06/20/18 06:00 06/20/18 06:00 PT 11.4 Seconds (9.8-13.1) 06/10/18 12:30 INR 1.0 06/10/18 12:30 APTT 34.0 Seconds (25.6-37.1) 06/10/18 12:30 - Constitutional Appears: Well, Non-toxic, No Acute Distress - Head Exam Head Exam: ATRAUMATIC, NORMOCEPHALIC - Extremities Exam Additional comments: Dressing to ex fix- clean dry and intact - Neurological Exam Neurological Exam: Alert, Awake, Oriented x3 - Psychiatric Exam Psychiatric exam: Normal Affect, Normal Mood Assessment and Plan - Assessment and Plan (Free Text) Assessment: 52 yo female s/p left foot charcot neuroarthropathy reconstruction with external fixation (03/28) Plan: Patient seen and evaluated Discussed with attending, Dr. Macdonald Chart, labs and vitals reviewed Patient s/p cardiac cath at [facility] [place] 06/17 - post procedure had HTN, SOB likely from hypertensive pulmonary edema and was transferred to [facility] ICU for monitoring -f/u Dr. Smiley when patient may proceed with GABRIEL Patient likely secondary surgery with Dr. Smiley tomorrow Podiatry will plan for ex fix removal (GABRIEL) after that procedure Podiatry will continue to follow
--- NOTE | 2018-06-20 15:52 | CP.PCM.PN ---
Subjective - Date & Time of Evaluation Date of Evaluation: 06/20/18 Time of Evaluation: 15:50 - Subjective Subjective: feeling better today Objective - Vital Signs/Intake and Output Vital Signs (last 24 hours): Temp Pulse Resp BP Pulse Ox 97.9 F 76 20 165/78 H 96 06/20/18 08:19 06/20/18 13:02 06/20/18 08:19 06/20/18 13:02 06/20/18 08:19 - Medications Medications: Current Medications Alprazolam (Xanax) 0.25 mg PO Q12 PRN PRN Reason: Anxiety Stop: 06/21/18 11:59 Last Admin: 06/20/18 13:08 Dose: 0.25 mg Amlodipine Besylate (Norvasc) 10 mg PO DAILY [facility] Last Admin: 06/20/18 09:06 Dose: 10 mg Aspirin (Aspirin) 325 mg PO DAILY [facility] Last Admin: 06/20/18 09:14 Dose: 325 mg Atorvastatin Calcium (Lipitor) 40 mg PO HS [facility] Last Admin: 06/19/18 21:05 Dose: 40 mg Carvedilol (Coreg) 25 mg PO Q12 [facility] Last Admin: 06/20/18 09:07 Dose: 25 mg Clonidine HCl (Catapres) 0.1 mg PO Q6 PRN PRN Reason: Systolic Blood Pressure Last Admin: 06/20/18 09:05 Dose: 0.1 mg Clopidogrel Bisulfate (Plavix) 75 mg PO DAILY [facility] Docusate Sodium (Colace) 100 mg PO BID [facility] Last Admin: 06/20/18 09:07 Dose: 100 mg Folic Acid (Folic Acid) 1 mg PO DAILY [facility] Last Admin: 06/20/18 09:07 Dose: 1 mg Furosemide (Lasix) 40 mg PO DAILY [facility] Last Admin: 06/20/18 09:05 Dose: 40 mg Hydralazine HCl (Apresoline) 100 mg PO TID [facility] Last Admin: 06/20/18 13:02 Dose: 100 mg Hydromorphone HCl (Dilaudid) 2 mg IVP Q6 PRN PRN Reason: Pain, severe (8-10) Last Admin: 06/20/18 10:59 Dose: 2 mg Piperacillin Sod/Tazobactam (Sod 3.375 gm/ Sodium Chloride) 100 mls @ 100 mls/hr IVPB Q6 [facility]; Protocol Last Admin: 06/20/18 09:06 Dose: 100 mls/hr Insulin Detemir (Levemir) 70 units SC HS [facility] Last Admin: 06/19/18 22:11 Dose: 70 u Insulin Human Regular (Humulin R) 30 units SC TID [facility] Last Admin: 06/20/18 13:02 Dose: 30 units Insulin Human Regular (Humulin R) 0 units SC ACHS [facility]; Protocol Last Admin: 06/20/18 13:01 Dose: 3 units Lanthanum Carbonate (Fosrenol) 500 mg PO TID [facility] Last Admin: 06/20/18 13:02 Dose: 500 mg Morphine Sulfate (Morphine Extended Release Tab) 30 mg PO Q12 [facility] Last Admin: 06/20/18 09:04 Dose: 30 mg Ondansetron HCl (Zofran Inj) 4 mg IVP Q4 PRN PRN Reason: Nausea/Vomiting Last Admin: 06/18/18 17:26 Dose: 4 mg Psyllium Hydrophilic Mucilloid (Hydrocil Instant) 1 pkt PO DAILY [facility] Last Admin: 06/20/18 09:06 Dose: 1 pkt - Labs Labs: 06/20/18 06:00 06/20/18 06:00 PT 11.4 Seconds (9.8-13.1) 06/10/18 12:30 INR 1.0 06/10/18 12:30 APTT 34.0 Seconds (25.6-37.1) 06/10/18 12:30 - Constitutional Appears: Well - Head Exam Head Exam: ATRAUMATIC, NORMAL INSPECTION, NORMOCEPHALIC - Eye Exam Eye Exam: EOMI, Normal appearance, PERRL Pupil Exam: NORMAL ACCOMODATION, PERRL - ENT Exam ENT Exam: Mucous Membranes Moist, Normal Exam - Neck Exam Neck Exam: Full ROM, Normal Inspection. absent: Lymphadenopathy - Respiratory Exam Respiratory Exam: Clear to Ausculation Bilateral, NORMAL BREATHING PATTERN - Cardiovascular Exam Cardiovascular Exam: REGULAR RHYTHM, +S1, +S2. absent: Murmur - GI/Abdominal Exam GI & Abdominal Exam: Soft, Normal Bowel Sounds. absent: Tenderness - Extremities Exam Extremities Exam: Full ROM, Normal Capillary Refill, Normal Inspection. absent: Joint Swelling, Pedal Edema - Back Exam Back Exam: NORMAL INSPECTION - Neurological Exam Neurological Exam: Alert, Awake, CN II-XII Intact, Normal Gait, Oriented x3 - Psychiatric Exam Psychiatric exam: Normal Affect, Normal Mood - Skin Skin Exam: Dry, Intact, Normal Color, Warm Assessment and Plan (1) CAD (coronary artery disease) Assessment & Plan: s/p PCI of mLAD need PCi of high grade LCx ISR plan for procedure tomorrow at [facility] [place] cont dapt cont coreg Status: Acute (2) Preop cardiovascular exam Status: Acute (3) CHF (congestive heart failure) Status: Acute (4) Chronic kidney disease Status: Acute (5) Essential hypertension Status: Chronic (6) Hypertension Status: Chronic
[2018-06-20] MEDS: Insulin Detemir 100 Units/ml Inj SC SCH (23:20)
[2018-06-21] MEDS: Piperacillin/Tazobact 3.375 GM in Sodium Chloride 0.9% 100 ML IVPB SCH ×4 (04:25→23:32)
[2018-06-21 06:21] LABS: HEMOGLOBIN 8.6 g/dL (12.0-16.0); MEAN CELL VOLUME 84.2 fl (81.0-99.0); MEAN CORPUSCULAR HEMOGLOBIN 28.1 pg (27.0-31.0); MEAN CORPUSCULAR HGB CONC 33.4 g/dL (33.0-37.0); RBC 3.06 Mil/uL (3.80-5.20); RED CELL DISTRIBUTION WIDTH 16.7 % (11.5-14.5); WHITE BLOOD COUNT 6.6 K/uL (4.8-10.8)
[2018-06-21 06:46] LABS: ALB/GLOB RATIO 1.1 (1.0-2.1); ALBUMIN 3.4 g/dL (3.5-5.0); CALCIUM 8.9 mg/dL (8.4-10.2)
[2018-06-21] MEDS: Insulin Regular 100 units/ml SC SCH ×7 (07:04→22:00)
[2018-06-21] MEDS: Morphine 30 mg SR Tab PO SCH ×2 (09:00→21:55)
--- NOTE | 2018-06-21 09:11 | CP.PCM.PN ---
<Rea Wan - Last Filed: 06/21/18 11:30> Subjective - Date & Time of Evaluation Date of Evaluation: 06/21/18 Time of Evaluation: 08:00 - Subjective Subjective: Pt seen and examined this morning with Dr. Jarrell. Denies foot pain, chest pain or dyspnea. Discussed plan for PCI with Dr. Smiley at [facility] tomorrow. Objective - Vital Signs/Intake and Output Vital Signs (last 24 hours): Temp Pulse Resp BP Pulse Ox 98.2 F 78 20 163/73 H 98 06/21/18 08:17 06/21/18 08:17 06/21/18 08:17 06/21/18 08:17 06/21/18 08:17 - Medications Medications: Current Medications Alprazolam (Xanax) 0.25 mg PO Q12 PRN PRN Reason: Anxiety Stop: 06/21/18 11:59 Last Admin: 06/20/18 13:08 Dose: 0.25 mg Amlodipine Besylate (Norvasc) 10 mg PO DAILY [facility] Last Admin: 06/20/18 09:06 Dose: 10 mg Aspirin (Aspirin) 325 mg PO DAILY [facility] Last Admin: 06/20/18 09:14 Dose: 325 mg Atorvastatin Calcium (Lipitor) 40 mg PO HS [facility] Last Admin: 06/20/18 21:35 Dose: 40 mg Carvedilol (Coreg) 25 mg PO Q12 [facility] Last Admin: 06/20/18 21:02 Dose: 25 mg Clonidine HCl (Catapres) 0.1 mg PO Q6 PRN PRN Reason: Systolic Blood Pressure Last Admin: 06/20/18 09:05 Dose: 0.1 mg Clopidogrel Bisulfate (Plavix) 75 mg PO DAILY [facility] Last Admin: 06/20/18 16:51 Dose: 75 mg Docusate Sodium (Colace) 100 mg PO BID [facility] Last Admin: 06/20/18 16:52 Dose: 100 mg Folic Acid (Folic Acid) 1 mg PO DAILY [facility] Last Admin: 06/20/18 09:07 Dose: 1 mg Furosemide (Lasix) 40 mg PO DAILY [facility] Last Admin: 06/20/18 09:05 Dose: 40 mg Hydralazine HCl (Apresoline) 100 mg PO TID [facility] Last Admin: 06/20/18 16:51 Dose: 100 mg Hydromorphone HCl (Dilaudid) 2 mg IVP Q6 PRN PRN Reason: Pain, severe (8-10) Last Admin: 06/21/18 05:34 Dose: 2 mg Piperacillin Sod/Tazobactam (Sod 3.375 gm/ Sodium Chloride) 100 mls @ 100 mls/hr IVPB Q6 [facility]; Protocol Last Admin: 06/21/18 04:25 Dose: 100 mls/hr Insulin Detemir (Levemir) 70 units SC HS [facility] Last Admin: 06/20/18 23:20 Dose: Not Given Insulin Human Regular (Humulin R) 30 units SC TID [facility] Last Admin: 06/20/18 17:14 Dose: 30 units Insulin Human Regular (Humulin R) 0 units SC ACHS [facility]; Protocol Last Admin: 06/21/18 07:04 Dose: 2 units Lanthanum Carbonate (Fosrenol) 500 mg PO TID [facility] Last Admin: 06/20/18 16:51 Dose: 500 mg Morphine Sulfate (Morphine Extended Release Tab) 30 mg PO Q12 [facility] Last Admin: 06/20/18 21:07 Dose: 30 mg Ondansetron HCl (Zofran Inj) 4 mg IVP Q4 PRN PRN Reason: Nausea/Vomiting Last Admin: 06/18/18 17:26 Dose: 4 mg Psyllium Hydrophilic Mucilloid (Hydrocil Instant) 1 pkt PO DAILY [facility] Last Admin: 06/20/18 09:06 Dose: 1 pkt - Labs Labs: 06/21/18 05:40 06/21/18 05:40 PT 11.4 Seconds (9.8-13.1) 06/10/18 12:30 INR 1.0 06/10/18 12:30 APTT 34.0 Seconds (25.6-37.1) 06/10/18 12:30 - Constitutional Appears: Non-toxic, No Acute Distress - Eye Exam Eye Exam: Normal appearance - ENT Exam ENT Exam: Mucous Membranes Moist - Neck Exam Neck Exam: Normal Inspection Additional comments: No JVD - Respiratory Exam Respiratory Exam: Clear to Ausculation Bilateral - Cardiovascular Exam Cardiovascular Exam: REGULAR RHYTHM. absent: +S1, +S2 - GI/Abdominal Exam GI & Abdominal Exam: Soft, Normal Bowel Sounds. absent: Tenderness - Extremities Exam Extremities Exam: Normal Capillary Refill. absent: Calf Tenderness, Pedal Edema Additional comments: Left foot, orthopedic hinge brace, foot wrapped in gauze, clean/dry/in tact, food distal pulses and capillary refill. Motor and sensory in tact - Neurological Exam Neurological Exam: Alert - Psychiatric Exam Psychiatric exam: Normal Affect - Skin Skin Exam: Normal Color Assessment and Plan - Assessment and Plan (Free Text) Assessment: 52 yo patient with significant cardiac hx (CAD with 2 stents), DM, recent L foot surgery due to OM and Charcot deformity, with chronic L foot ulcer admitted for removal of external fixator pending cardiac clearance. Nuclear stress test was abnormal so patient had PCI with Dr Baljit watkins/ stenting of mid LAD (restenosis noted) on 06/17. Was noted shortly after to have flash pulmonary edema which has since then resolved. Pt now has plan for secondary PCI of LCx tomorrow. -NPO at midnight except for meds -C/W Dual antiplatelet, coreg, statin, antihypertensives -Podiatry on board- plan for OR for external fixator pending cardiac clearance -ID following, Dr. Kiser, C/W Bassam for foot ulcer. Vanco held due to high troughs on 06/12 -DM, basal bolus home regimen <Jarrell,Tushar K - Last Filed: 06/22/18 18:46> Objective - Vital Signs/Intake and Output Vital Signs (last 24 hours): Temp Pulse Resp BP Pulse Ox 97.7 F 86 18 160/72 H 95 06/22/18 16:29 06/22/18 18:27 06/22/18 16:29 06/22/18 18:27 06/22/18 16:29 - Medications Medications: Current Medications Amlodipine Besylate (Norvasc) 10 mg PO DAILY [facility] Last Admin: 06/22/18 10:22 Dose: 10 mg Aspirin (Aspirin) 325 mg PO DAILY [facility] Last Admin: 06/22/18 10:24 Dose: 325 mg Atorvastatin Calcium (Lipitor) 40 mg PO HS [facility] Last Admin: 06/21/18 22:55 Dose: 40 mg Carvedilol (Coreg) 25 mg PO Q12 [facility] Last Admin: 06/22/18 10:21 Dose: 25 mg Clonidine HCl (Catapres) 0.1 mg PO Q6 PRN PRN Reason: Systolic Blood Pressure Last Admin: 06/22/18 10:23 Dose: 0.1 mg Clopidogrel Bisulfate (Plavix) 75 mg PO DAILY [facility] Last Admin: 06/22/18 10:22 Dose: 75 mg Docusate Sodium (Colace) 100 mg PO BID [facility] Last Admin: 06/22/18 18:28 Dose: 100 mg Enoxaparin Sodium (Lovenox) 40 mg SC DAILY [facility]; Protocol Last Admin: 06/22/18 14:37 Dose: 40 mg Folic Acid (Folic Acid) 1 mg PO DAILY [facility] Last Admin: 06/22/18 10:22 Dose: 1 mg Furosemide (Lasix) 40 mg PO DAILY [facility] Last Admin: 06/22/18 10:23 Dose: 40 mg Hydralazine HCl (Apresoline) 100 mg PO TID [facility] Last Admin: 06/22/18 18:27 Dose: 100 mg Hydromorphone HCl (Dilaudid) 2 mg IVP Q6 PRN PRN Reason: Pain, severe (8-10) Last Admin: 06/22/18 18:26 Dose: 2 mg Piperacillin Sod/Tazobactam (Sod 3.375 gm/ Sodium Chloride) 100 mls @ 100 mls/hr IVPB Q6 [facility]; Protocol Last Admin: 06/22/18 18:28 Dose: 100 mls/hr Insulin Detemir (Levemir) 70 units SC HS [facility] Last Admin: 06/21/18 22:55 Dose: 70 u Insulin Human Regular (Humulin R) 30 units SC TID [facility] Last Admin: 06/22/18 18:00 Dose: 30 units Insulin Human Regular (Humulin R) 0 units SC ACHS [facility]; Protocol Last Admin: 06/22/18 18:00 Dose: 4 units Lactulose (Enulose) 20 gm PO DAILY PRN PRN Reason: Constipation Lanthanum Carbonate (Fosrenol) 500 mg PO TID [facility] Last Admin: 06/22/18 18:28 Dose: 500 mg Morphine Sulfate (Morphine Extended Release Tab) 30 mg PO Q12 [facility] Last Admin: 06/22/18 14:22 Dose: 30 mg Ondansetron HCl (Zofran Inj) 4 mg IVP Q4 PRN PRN Reason: Nausea/Vomiting Last Admin: 06/18/18 17:26 Dose: 4 mg Psyllium Hydrophilic Mucilloid (Hydrocil Instant) 1 pkt PO DAILY [facility] Last Admin: 06/22/18 10:24 Dose: 1 pkt Tamsulosin HCl (Flomax) 0.4 mg PO DAILY [facility] Stop: 06/23/18 08:40 Last Admin: 06/22/18 10:25 Dose: 0.4 mg - Labs Labs: 06/22/18 05:40 06/22/18 05:40 PT 11.4 Seconds (9.8-13.1) 06/10/18 12:30 INR 1.0 06/10/18 12:30 APTT 34.0 Seconds (25.6-37.1) 06/10/18 12:30 Assessment and Plan - Assessment and Plan (Free Text) Assessment: Patient was personally seen and examined by me in rounds with residents. Available labs and diagnostic data reviewed. Case, Patient's condition and management plan discussed with residents in rounds. Agree with resident's progress note. Plan: As ordered.
[2018-06-21] MEDS: Psyllium Packet PO SCH (09:31)
--- NOTE | 2018-06-21 10:48 | CP.PCM.PN ---
Subjective - Date & Time of Evaluation Date of Evaluation: 06/21/18 Time of Evaluation: 10:46 - Subjective Subjective: Podiatry progress note for Dr. Macdonald 52 y/o female seen and evaluated this AM. Patient s/p cardiac cath with PCI with complication of flash pulmonary edema and hypertension at [place] yesterday. Patient pending one more procedure with Dr. Smiley, likely for 06/22/18. Patient states she is aware. Patient states she is feeling well since procedure. No new complaints with external fixator. Denies n/v/f/d/c/sob. Objective - Vital Signs/Intake and Output Vital Signs (last 24 hours): Temp Pulse Resp BP Pulse Ox 98.2 F 78 20 163/73 H 98 06/21/18 08:17 06/21/18 09:48 06/21/18 08:17 06/21/18 09:48 06/21/18 08:17 - Medications Medications: Current Medications Alprazolam (Xanax) 0.25 mg PO Q12 PRN PRN Reason: Anxiety Stop: 06/21/18 11:59 Last Admin: 06/20/18 13:08 Dose: 0.25 mg Amlodipine Besylate (Norvasc) 10 mg PO DAILY [facility] Last Admin: 06/21/18 09:31 Dose: 10 mg Aspirin (Aspirin) 325 mg PO DAILY [facility] Last Admin: 06/21/18 09:30 Dose: 325 mg Atorvastatin Calcium (Lipitor) 40 mg PO HS [facility] Last Admin: 06/20/18 21:35 Dose: 40 mg Carvedilol (Coreg) 25 mg PO Q12 [facility] Last Admin: 06/21/18 09:30 Dose: 25 mg Clonidine HCl (Catapres) 0.1 mg PO Q6 PRN PRN Reason: Systolic Blood Pressure Last Admin: 06/21/18 09:48 Dose: 0.1 mg Clopidogrel Bisulfate (Plavix) 75 mg PO DAILY [facility] Last Admin: 06/21/18 09:31 Dose: 75 mg Docusate Sodium (Colace) 100 mg PO BID [facility] Last Admin: 06/21/18 09:30 Dose: 100 mg Folic Acid (Folic Acid) 1 mg PO DAILY [facility] Last Admin: 06/21/18 09:30 Dose: 1 mg Furosemide (Lasix) 40 mg PO DAILY [facility] Last Admin: 06/21/18 09:31 Dose: 40 mg Hydralazine HCl (Apresoline) 100 mg PO TID [facility] Last Admin: 06/21/18 09:29 Dose: 100 mg Hydromorphone HCl (Dilaudid) 2 mg IVP Q6 PRN PRN Reason: Pain, severe (8-10) Last Admin: 06/21/18 05:34 Dose: 2 mg Piperacillin Sod/Tazobactam (Sod 3.375 gm/ Sodium Chloride) 100 mls @ 100 mls/hr IVPB Q6 [facility]; Protocol Last Admin: 06/21/18 09:32 Dose: 100 mls/hr Insulin Detemir (Levemir) 70 units SC HS [facility] Last Admin: 06/20/18 23:20 Dose: Not Given Insulin Human Regular (Humulin R) 30 units SC TID [facility] Last Admin: 06/21/18 09:30 Dose: 30 units Insulin Human Regular (Humulin R) 0 units SC ACHS [facility]; Protocol Last Admin: 06/21/18 07:04 Dose: 2 units Lanthanum Carbonate (Fosrenol) 500 mg PO TID [facility] Last Admin: 06/21/18 09:30 Dose: 500 mg Morphine Sulfate (Morphine Extended Release Tab) 30 mg PO Q12 [facility] Last Admin: 06/20/18 21:07 Dose: 30 mg Ondansetron HCl (Zofran Inj) 4 mg IVP Q4 PRN PRN Reason: Nausea/Vomiting Last Admin: 06/18/18 17:26 Dose: 4 mg Psyllium Hydrophilic Mucilloid (Hydrocil Instant) 1 pkt PO DAILY [facility] Last Admin: 06/21/18 09:31 Dose: 1 pkt - Labs Labs: 06/21/18 05:40 06/21/18 05:40 PT 11.4 Seconds (9.8-13.1) 06/10/18 12:30 INR 1.0 06/10/18 12:30 APTT 34.0 Seconds (25.6-37.1) 06/10/18 12:30 - Constitutional Appears: Well, Non-toxic, No Acute Distress - Head Exam Head Exam: ATRAUMATIC, NORMOCEPHALIC - Extremities Exam Additional comments: Dressing to ex fix- clean dry and intact - Neurological Exam Neurological Exam: Alert, Awake, Oriented x3 - Psychiatric Exam Psychiatric exam: Normal Affect, Normal Mood Assessment and Plan - Assessment and Plan (Free Text) Assessment: 52 yo female s/p 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 Macdonald Chart, labs and vitals reviewed [place] [facility] - post procedure had HTN, SOB likely from hypertensive pulmonary edema and was transferred [place] [facility] [place] for monitoring -f/u Dr. Smiley when patient may proceed with GABRIEL Patient likely secondary surgery with Dr. Smiley 06/22/18 Podiatry will plan for ex fix removal (GABRIEL) after that procedure Podiatry will continue to follow
--- NOTE | 2018-06-21 11:15 | PQF ---
PROVIDER RESPONSE TEXT: Acute diastolic REVIEWER QUERY TEXT: Clinical Validity Additional clinical indicators are required to support the Acuity of CHF: which is documented as Acut e:Oral :lasix, coreg, and apresoline; CXR: No Active Disease Please respond and also state in your next progress note whether: -- Condition exists and also please provide clinical indicators to support the diagnosis -- Acute Condition: does not exist and also please provide amended documentation in the medical [address] to clarify: i.e. Chronic CHF: Acute CHF ruled out etc. -- Other, please specify 06/13 Cardiology consult:denies CP, SOB, dyspnea on exertion Cardiac: Hx Peripheral Edema: Yes Assessment and Plan: includes: (3) CHF (congestive heart failure) echo in march shows normal EF w ith grade II diastolic dysfunction Status: Acute H and P: Respiratory Exam: Clear to Auscultation Bilateral, Normal Breathing Pattern The patient's Clinical Indicators include: - Query created by: Danielle Fiore on 06/14/2018 11:14 AM Electronically signed by: Scott Smiley MD 06/21/2018 11:12 AM
[2018-06-21] MEDS: Insulin Detemir 100 Units/ml Inj SC SCH (22:55)
[2018-06-22] MEDS: Piperacillin/Tazobact 3.375 GM in Sodium Chloride 0.9% 100 ML IVPB SCH ×4 (03:27→22:49)
[2018-06-22 06:32] LABS: HEMOGLOBIN 8.9 g/dL (12.0-16.0); MEAN CELL VOLUME 83.2 fl (81.0-99.0); MEAN CORPUSCULAR HEMOGLOBIN 28.1 pg (27.0-31.0); MEAN CORPUSCULAR HGB CONC 33.8 g/dL (33.0-37.0); RBC 3.16 Mil/uL (3.80-5.20); RED CELL DISTRIBUTION WIDTH 16.6 % (11.5-14.5); WHITE BLOOD COUNT 7.1 K/uL (4.8-10.8)
[2018-06-22 06:52] LABS: ALB/GLOB RATIO 1.1 (1.0-2.1); ALBUMIN 3.5 g/dL (3.5-5.0); ALT/SGPT 23 U/L (9-52); AST/SGOT 23 U/L (14-36); BLOOD UREA NITROGEN 27 mg/dl (7-17); GFR NON-AFRICAN AMERICAN 52
--- NOTE | 2018-06-22 09:12 | CP.PCM.PCO ---
Physician Communication Note - Physician Communication Note Physician Communication Note: Patient removal of hardware scheduled for 06/27/18 9:[address] Macdonald
[2018-06-22] MEDS: Insulin Regular 100 units/ml SC SCH ×7 (09:26→22:00)
[2018-06-22] MEDS: Psyllium Packet PO SCH (10:24)
--- NOTE | 2018-06-22 11:00 | PN ---
DATE: 06/22/2018 SUBJECTIVE: The patient seen and examined. Interim events noted. Consults noted and appreciated. Cardiology followup and procedure and stenting is noted and appreciated. Podiatry followup and interventions noted and appreciated. The patient remains in regular medical floor. The patient feels better. Pain is adequately controlled. No new complaint of chest pain, shortness of breath. PHYSICAL EXAMINATION: GENERAL: The patient is in no acute distress. VITAL SIGNS: Stable. HEART: S1, S2 normal and regular. LUNGS: Good bilateral air exchange. ABDOMEN: Soft, nontender. EXTREMITIES: The patient has left lower extremity external fixator. No sign of acute complication. No edema. No swelling. No tenderness. No acute ischemia. No sign of acute neurovascular distal complication. CENTRAL NERVOUS SYSTEM: Exam is essentially unchanged. DIAGNOSTIC DATA: Available diagnostic data reviewed. ASSESSMENT AND PLAN: Overall, the patient is medically stable, awaiting cardiac events and podiatry surgery. Plan as ordered. Case and plan discussed with the patient. Tushar Jarrell MD
--- NOTE | 2018-06-22 12:58 | CP.PCM.PN ---
Subjective - Date & Time of Evaluation Date of Evaluation: 06/22/18 Time of Evaluation: 08:00 - Subjective Subjective: afeb on IV rx s/p PTCA Objective - Vital Signs/Intake and Output Vital Signs (last 24 hours): Temp Pulse Resp BP Pulse Ox 98.2 F 76 20 170/80 H 98 06/22/18 09:00 06/22/18 10:23 06/22/18 09:00 06/22/18 10:23 06/22/18 09:00 - Medications Medications: Current Medications Amlodipine Besylate (Norvasc) 10 mg PO DAILY [facility] Last Admin: 06/22/18 10:22 Dose: 10 mg Aspirin (Aspirin) 325 mg PO DAILY [facility] Last Admin: 06/22/18 10:24 Dose: 325 mg Atorvastatin Calcium (Lipitor) 40 mg PO HS [facility] Last Admin: 06/21/18 22:55 Dose: 40 mg Carvedilol (Coreg) 25 mg PO Q12 [facility] Last Admin: 06/22/18 10:21 Dose: 25 mg Clonidine HCl (Catapres) 0.1 mg PO Q6 PRN PRN Reason: Systolic Blood Pressure Last Admin: 06/22/18 10:23 Dose: 0.1 mg Clopidogrel Bisulfate (Plavix) 75 mg PO DAILY [facility] Last Admin: 06/22/18 10:22 Dose: 75 mg Docusate Sodium (Colace) 100 mg PO BID [facility] Last Admin: 06/22/18 10:21 Dose: 100 mg Enoxaparin Sodium (Lovenox) 40 mg SC DAILY [facility]; Protocol Folic Acid (Folic Acid) 1 mg PO DAILY [facility] Last Admin: 06/22/18 10:22 Dose: 1 mg Furosemide (Lasix) 40 mg PO DAILY [facility] Last Admin: 06/22/18 10:23 Dose: 40 mg Hydralazine HCl (Apresoline) 100 mg PO TID [facility] Last Admin: 06/22/18 10:19 Dose: 100 mg Hydromorphone HCl (Dilaudid) 2 mg IVP Q6 PRN PRN Reason: Pain, severe (8-10) Last Admin: 06/22/18 11:50 Dose: 2 mg Piperacillin Sod/Tazobactam (Sod 3.375 gm/ Sodium Chloride) 100 mls @ 100 mls/hr IVPB Q6 [facility]; Protocol Last Admin: 06/22/18 10:31 Dose: 100 mls/hr Insulin Detemir (Levemir) 70 units SC HS [facility] Last Admin: 06/21/18 22:55 Dose: 70 u Insulin Human Regular (Humulin R) 30 units SC TID [facility] Last Admin: 06/22/18 09:26 Dose: 30 units Insulin Human Regular (Humulin R) 0 units SC ACHS [facility]; Protocol Last Admin: 06/22/18 09:27 Dose: 4 units Lactulose (Enulose) 20 gm PO DAILY PRN PRN Reason: Constipation Lanthanum Carbonate (Fosrenol) 500 mg PO TID [facility] Last Admin: 06/22/18 10:20 Dose: 500 mg Morphine Sulfate (Morphine Extended Release Tab) 30 mg PO Q12 [facility] Last Admin: 06/21/18 21:55 Dose: Not Given Ondansetron HCl (Zofran Inj) 4 mg IVP Q4 PRN PRN Reason: Nausea/Vomiting Last Admin: 06/18/18 17:26 Dose: 4 mg Psyllium Hydrophilic Mucilloid (Hydrocil Instant) 1 pkt PO DAILY [facility] Last Admin: 06/22/18 10:24 Dose: 1 pkt Tamsulosin HCl (Flomax) 0.4 mg PO DAILY [facility] Stop: 06/23/18 08:40 Last Admin: 06/22/18 10:25 Dose: 0.4 mg - Labs Labs: 06/22/18 05:40 06/22/18 05:40 PT 11.4 Seconds (9.8-13.1) 06/10/18 12:30 INR 1.0 06/10/18 12:30 APTT 34.0 Seconds (25.6-37.1) 06/10/18 12:30 - Constitutional Appears: Non-toxic, Chronically Ill - Head Exam Head Exam: NORMOCEPHALIC - Eye Exam Eye Exam: absent: Scleral icterus - ENT Exam ENT Exam: Mucous Membranes Dry - Neck Exam Neck Exam: absent: Lymphadenopathy - Respiratory Exam Respiratory Exam: Decreased Breath Sounds - Cardiovascular Exam Cardiovascular Exam: REGULAR RHYTHM - GI/Abdominal Exam GI & Abdominal Exam: Distended, Soft - Rectal Exam Rectal Exam: Deferred - Exam Exam: NORMAL INSPECTION - Extremities Exam Extremities Exam: Pedal Edema Additional comments: left foot fixator in place no redness / drainage - Back Exam Back Exam: absent: CVA tenderness (L), CVA tenderness (R) - Neurological Exam Neurological Exam: Alert, Awake, Oriented x3 - Psychiatric Exam Psychiatric exam: Normal Mood - Skin Skin Exam: Dry Assessment and Plan (1) Foot pain Status: Acute (2) Foot ulcer Status: Chronic (3) CAD (coronary artery disease) Status: Acute - Assessment and Plan (Free Text) Assessment: cont wound care and IV rx
[2018-06-22] MEDS: Morphine 30 mg SR Tab PO SCH ×2 (14:22→21:00)
[2018-06-22] MEDS: Enoxaparin 40 mg Syringe SC SCH (14:37)
[2018-06-22] MEDS: Insulin Detemir 100 Units/ml Inj SC SCH (22:50)
[2018-06-23] MEDS: Piperacillin/Tazobact 3.375 GM in Sodium Chloride 0.9% 100 ML IVPB SCH ×4 (03:46→22:01)
[2018-06-23] MEDS: Enoxaparin 40 mg Syringe SC SCH (08:20)
[2018-06-23] MEDS: Psyllium Packet PO SCH (08:21)
[2018-06-23] MEDS: Insulin Regular 100 units/ml SC SCH ×7 (08:22→21:47)
[2018-06-23] MEDS: Morphine 30 mg SR Tab PO SCH ×2 (08:43→21:42)
--- NOTE | 2018-06-23 11:10 | PN ---
DATE: 06/23/2018 SUBJECTIVE: The patient seen and examined. Interim events noted. The patient remains in regular medical floor. The patient feels okay. Denies any specific complaint. No chest pain or shortness of breath. PHYSICAL EXAMINATION: GENERAL: The patient is in no acute distress. VITAL SIGNS: Stable. HEART EXAM: S1, S2 normal and regular. LUNGS: Good bilateral air exchange. ABDOMEN: Soft, nontender. EXTREMITIES: The patient has left lower extremity external fixator in good position without any distal complication. No edema. No calf swelling. No tenderness. No acute ischemia. CENTRAL NERVOUS SYSTEM: Essentially unchanged. DIAGNOSTIC DATA: Available diagnostic data reviewed. ASSESSMENT AND PLAN: Overall, the patient's general medical condition is stable. The patient is scheduled for surgery 06/27/2018. Plan as ordered. Tushar Jarrell MD
--- NOTE | 2018-06-23 11:34 | CP.PCM.PN ---
Subjective - Date & Time of Evaluation Date of Evaluation: 06/23/18 Time of Evaluation: 11:32 - Subjective Subjective: Podiatry progress ntoe for Dr. Macdonald, 52 y/o female patient was seen and evaluated at bedside. Patient s/p multiple cardiac procedures at [place]. cardiac cath with PCI with complication of flash pulmonary edema and hypertension at [place]. Patient states she is feeling well since procedure. No new complaints with external fixator. Denies n/v/f/d/c/sob. Objective - Vital Signs/Intake and Output Vital Signs (last 24 hours): Temp Pulse Resp BP Pulse Ox 98.3 F 77 20 177/75 H 99 06/23/18 08:34 06/23/18 08:34 06/23/18 08:34 06/23/18 08:34 06/23/18 08:34 - Medications Medications: Current Medications Amlodipine Besylate (Norvasc) 10 mg PO DAILY [facility] Last Admin: 06/23/18 08:18 Dose: 10 mg Aspirin (Aspirin) 325 mg PO DAILY [facility] Last Admin: 06/23/18 08:43 Dose: 325 mg Atorvastatin Calcium (Lipitor) 40 mg PO HS [facility] Last Admin: 06/22/18 22:49 Dose: 40 mg Carvedilol (Coreg) 25 mg PO Q12 [facility] Last Admin: 06/23/18 08:20 Dose: 25 mg Clonidine HCl (Catapres) 0.1 mg PO Q6 PRN PRN Reason: Systolic Blood Pressure Last Admin: 06/23/18 08:19 Dose: 0.1 mg Clopidogrel Bisulfate (Plavix) 75 mg PO DAILY [facility] Last Admin: 06/23/18 08:19 Dose: 75 mg Docusate Sodium (Colace) 100 mg PO BID [facility] Last Admin: 06/23/18 08:17 Dose: 100 mg Enoxaparin Sodium (Lovenox) 40 mg SC DAILY [facility]; Protocol Last Admin: 06/23/18 08:20 Dose: 40 mg Folic Acid (Folic Acid) 1 mg PO DAILY [facility] Last Admin: 06/23/18 08:24 Dose: 1 mg Furosemide (Lasix) 40 mg PO DAILY [facility] Last Admin: 06/23/18 08:21 Dose: 40 mg Hydralazine HCl (Apresoline) 100 mg PO TID [facility] Last Admin: 06/23/18 08:17 Dose: 100 mg Hydromorphone HCl (Dilaudid) 2 mg IVP Q6 PRN PRN Reason: Pain, severe (8-10) Last Admin: 06/23/18 06:08 Dose: 2 mg Piperacillin Sod/Tazobactam (Sod 3.375 gm/ Sodium Chloride) 100 mls @ 100 mls/hr IVPB Q6 [facility]; Protocol Last Admin: 06/23/18 09:13 Dose: 100 mls/hr Insulin Detemir (Levemir) 70 units SC HS [facility] Last Admin: 06/22/18 22:50 Dose: 70 u Insulin Human Regular (Humulin R) 30 units SC TID [facility] Last Admin: 06/23/18 08:22 Dose: 30 units Insulin Human Regular (Humulin R) 0 units SC ACHS [facility]; Protocol Last Admin: 06/23/18 08:22 Dose: 3 units Lactulose (Enulose) 20 gm PO DAILY PRN PRN Reason: Constipation Lanthanum Carbonate (Fosrenol) 500 mg PO TID [facility] Last Admin: 06/23/18 08:17 Dose: 500 mg Morphine Sulfate (Morphine Extended Release Tab) 30 mg PO Q12 [facility] Last Admin: 06/23/18 08:43 Dose: 30 mg Ondansetron HCl (Zofran Inj) 4 mg IVP Q4 PRN PRN Reason: Nausea/Vomiting Last Admin: 06/18/18 17:26 Dose: 4 mg Psyllium Hydrophilic Mucilloid (Hydrocil Instant) 1 pkt PO DAILY [facility] Last Admin: 06/23/18 08:21 Dose: 1 pkt - Labs Labs: 06/22/18 05:40 06/22/18 05:40 PT 11.4 Seconds (9.8-13.1) 06/10/18 12:30 INR 1.0 06/10/18 12:30 APTT 34.0 Seconds (25.6-37.1) 06/10/18 12:30 - Constitutional Appears: Well, Non-toxic, No Acute Distress - Head Exam Head Exam: ATRAUMATIC, NORMOCEPHALIC - Extremities Exam Additional comments: Vasc: DP/PT pulses palpable 1/4 on the right. Unable to assess DP/PT to left secondary to obstruction from external fixation device, cap refill on left foot <3 to all digits, refill time to distal right foot WNL Neuro: protective sensation absent bilaterally Derm: dressing clean and dry without strike-through, no drainage, pin sites are clean, no erythema, no streaking, no fluctanance, no clinical signs of infection bilaterally left: hyperkeratotic ulcer noted at the medial plantar midfoot, no drainage, no probe to bone, healing noted, hyperkeratotic border and base, no malodor, no clinical signs of infection. right: Stable superficial wounds noted throughout anterior leg MSK: No pain on palpation noted bilaterally - Neurological Exam Neurological Exam: Alert, Awake, Oriented x3 - Psychiatric Exam Psychiatric exam: Normal Affect, Normal Mood Assessment and Plan - Assessment and Plan (Free Text) Assessment: 52F s/p left foot charcot neuroarthropathy reconstruction with external fixation (03/28) Plan: Patient seen and evaluated Discussed with attending, Dr. Macdonald Chart, labs and vitals reviewed- VSS Patient s/p cardiac cath [place] [facility] [place] and 06/21 - post procedure had HTN, SOB likely from hypertensive pulmonary edema and was transferred to [facility] ICU for monitoring -f/u Dr. Smiley when patient may proceed with GABRIEL Dressing reapplied to LLE at the ex-fix Patient provided cardiac clearance from Dr. Smiley to proceed with surgery. Patient scheduled for the OR on 06/27/18 at 9:00 AM at this time for removal of hardware Podiatry will continue to follow
--- NOTE | 2018-06-23 14:04 | CP.PCM.PCO ---
Assessment/Plan - Assessment/Plan Assessment (Free Text): Patient to continue IV antibiotics for minimum of [address] Kiser recommendation. Patient will benefit from TCU admission for continued antibiotic management. Patient to continue with ASA, Lovenox and Plavix, may hold on day of surgery.
[2018-06-23] MEDS ORDERED: Insulin Detemir 100 Units/ml Inj SC ONE (22:11)
[2018-06-23] MEDS: Insulin Detemir 100 Units/ml Inj SC SCH (22:35)
[2018-06-24] MEDS: Piperacillin/Tazobact 3.375 GM in Sodium Chloride 0.9% 100 ML IVPB SCH ×4 (04:39→22:13)
[2018-06-24] MEDS: Insulin Regular 100 units/ml SC SCH ×7 (07:45→22:00)
--- NOTE | 2018-06-24 08:48 | PN ---
DATE: 06/24/2018 SUBJECTIVE: The patient was seen and examined. Interim events noted. Consults noted and appreciated. The patient remains on regular medical floor. The patient feels okay, complains of pain, controlled with pain medication. No new complaint of chest pain or shortness of breath. PHYSICAL EXAMINATION: GENERAL: The patient is in no acute distress. VITAL SIGNS: Stable. HEART: S1, S2. Normal and regular. LUNGS: Good bilateral air exchange. ABDOMEN: Soft, nontender. EXTREMITIES: The patient has left lower extremity external fixator. No sign of distal complication. No edema. No calf swelling or tenderness. No acute ischemia. CENTRAL NERVOUS SYSTEM: Essentially unchanged. DIAGNOSTIC DATA: Available diagnostic data reviewed. Overall, the patient is medically stable. The patient is tentatively scheduled for surgery on 06/27/2018. Plan as ordered. Case and plan discussed with the patient. Tushar Jarrell MD
[2018-06-24] MEDS: Psyllium Packet PO SCH (08:55)
[2018-06-24] MEDS: Enoxaparin 40 mg Syringe SC SCH (08:57)
[2018-06-24] MEDS: Morphine 30 mg SR Tab PO SCH ×2 (09:02→22:10)
--- NOTE | 2018-06-24 14:05 | CP.PCM.PN ---
Subjective - Date & Time of Evaluation Date of Evaluation: 06/25/18 Time of Evaluation: 08:00 - Subjective Subjective: awaiting OR Objective - Vital Signs/Intake and Output Vital Signs (last 24 hours): Temp Pulse Resp BP Pulse Ox 98 F 84 20 171/76 H 100 06/24/18 08:51 06/24/18 12:31 06/24/18 08:51 06/24/18 12:31 06/24/18 08:51 - Medications Medications: Current Medications Amlodipine Besylate (Norvasc) 10 mg PO DAILY [facility] Last Admin: 06/24/18 08:57 Dose: 10 mg Aspirin (Aspirin) 325 mg PO DAILY [facility] Last Admin: 06/24/18 08:56 Dose: 325 mg Atorvastatin Calcium (Lipitor) 40 mg PO HS [facility] Last Admin: 06/23/18 21:43 Dose: 40 mg Carvedilol (Coreg) 25 mg PO Q12 [facility] Last Admin: 06/24/18 08:55 Dose: 25 mg Clonidine HCl (Catapres) 0.1 mg PO Q6 PRN PRN Reason: Systolic Blood Pressure Last Admin: 06/24/18 12:31 Dose: 0.1 mg Clopidogrel Bisulfate (Plavix) 75 mg PO DAILY [facility] Last Admin: 06/24/18 08:56 Dose: 75 mg Docusate Sodium (Colace) 100 mg PO BID [facility] Last Admin: 06/24/18 08:55 Dose: 100 mg Enoxaparin Sodium (Lovenox) 40 mg SC DAILY [facility]; Protocol Last Admin: 06/24/18 08:57 Dose: 40 mg Folic Acid (Folic Acid) 1 mg PO DAILY [facility] Last Admin: 06/24/18 08:55 Dose: 1 mg Furosemide (Lasix) 40 mg PO DAILY [facility] Last Admin: 06/24/18 08:57 Dose: 40 mg Hydralazine HCl (Apresoline) 100 mg PO TID [facility] Last Admin: 06/24/18 12:31 Dose: 100 mg Hydromorphone HCl (Dilaudid) 2 mg IVP Q6 PRN PRN Reason: Pain, severe (8-10) Last Admin: 06/24/18 06:39 Dose: 2 mg Piperacillin Sod/Tazobactam (Sod 3.375 gm/ Sodium Chloride) 100 mls @ 100 mls/hr IVPB Q6 [facility]; Protocol Last Admin: 06/24/18 09:02 Dose: 100 mls/hr Insulin Detemir (Levemir) 70 units SC HS [facility] Last Admin: 06/23/18 22:35 Dose: Not Given Insulin Human Regular (Humulin R) 30 units SC TID [facility] Last Admin: 06/24/18 12:30 Dose: 30 units Insulin Human Regular (Humulin R) 0 units SC ACHS [facility]; Protocol Last Admin: 06/24/18 12:30 Dose: 8 units Lactulose (Enulose) 20 gm PO DAILY PRN PRN Reason: Constipation Last Admin: 06/24/18 08:56 Dose: 20 gm Lanthanum Carbonate (Fosrenol) 500 mg PO TID [facility] Last Admin: 06/24/18 12:32 Dose: 500 mg Morphine Sulfate (Morphine Extended Release Tab) 30 mg PO Q12 [facility] Last Admin: 06/24/18 09:02 Dose: 30 mg Ondansetron HCl (Zofran Inj) 4 mg IVP Q4 PRN PRN Reason: Nausea/Vomiting Last Admin: 06/18/18 17:26 Dose: 4 mg Psyllium Hydrophilic Mucilloid (Hydrocil Instant) 1 pkt PO DAILY [facility] Last Admin: 06/24/18 08:55 Dose: 1 pkt Ramipril (Altace) 5 mg PO DAILY [facility] Last Admin: 06/24/18 08:54 Dose: 5 mg - Labs Labs: 06/22/18 05:40 06/22/18 05:40 PT 11.4 Seconds (9.8-13.1) 06/10/18 12:30 INR 1.0 06/10/18 12:30 APTT 34.0 Seconds (25.6-37.1) 06/10/18 12:30 - Constitutional Appears: Non-toxic, Chronically Ill - Eye Exam Eye Exam: EOMI - ENT Exam ENT Exam: Mucous Membranes Dry - Respiratory Exam Respiratory Exam: Decreased Breath Sounds - Cardiovascular Exam Cardiovascular Exam: REGULAR RHYTHM - GI/Abdominal Exam GI & Abdominal Exam: Distended - Rectal Exam Rectal Exam: absent: Deferred - Exam Exam: NORMAL INSPECTION Assessment and Plan (1) Foot pain Status: Acute (2) Foot ulcer Status: Chronic (3) CAD (coronary artery disease) Status: Acute
[2018-06-24] MEDS: Insulin Detemir 100 Units/ml Inj SC SCH (22:00)
[2018-06-25] MEDS: Piperacillin/Tazobact 3.375 GM in Sodium Chloride 0.9% 100 ML IVPB SCH ×4 (04:09→22:08)
[2018-06-25 07:26] LABS: HEMOGLOBIN 8.4 g/dL (12.0-16.0); MEAN CELL VOLUME 84.7 fl (81.0-99.0); MEAN CORPUSCULAR HEMOGLOBIN 28.2 pg (27.0-31.0); MEAN CORPUSCULAR HGB CONC 33.4 g/dL (33.0-37.0); RBC 2.97 Mil/uL (3.80-5.20); RED CELL DISTRIBUTION WIDTH 16.4 % (11.5-14.5); WHITE BLOOD COUNT 6.8 K/uL (4.8-10.8)
[2018-06-25 07:59] LABS: ALBUMIN 3.3 g/dL (3.5-5.0); CALCIUM 9.1 mg/dL (8.4-10.2)
[2018-06-25] MEDS: Enoxaparin 40 mg Syringe SC SCH (09:42)
[2018-06-25] MEDS: Insulin Regular 100 units/ml SC SCH ×7 (09:43→22:00)
[2018-06-25] MEDS: Psyllium Packet PO SCH (09:48)
[2018-06-25] MEDS: Morphine 30 mg SR Tab PO SCH ×2 (10:03→21:00)
--- NOTE | 2018-06-25 12:16 | PN ---
DATE: 06/25/2018 SUBJECTIVE: The patient was seen and examined. Interim events noted. Patient had anxiety episode after patient hears about one of her ____ passing away. Currently, patient is sleeping comfortably. Telephone orders for medications are given. No specific complaint. No specific issue reported by nursing staff. PHYSICAL EXAMINATION: GENERAL: The patient is in no acute distress. VITAL SIGNS: Stable. HEART: S1 and S2 normal and regular. LUNGS: Good bilateral air exchange. ABDOMEN: Soft and nontender. EXTREMITIES: No edema. No calf swelling. No tenderness. No acute ischemia. WORKERS' COMPENSATION MAGISTRATE: Exam is essentially unchanged. DIAGNOSTIC DATA: Available diagnostic data reviewed. Patient's external defibrillator and left lower extremity is in good position without any distal complication. Patient is scheduled for surgery, Dr. Hunter for next week for removal of the splint. PLAN: As ordered. Tushar Jarrell MD
[2018-06-25] MEDS: Insulin Detemir 100 Units/ml Inj SC SCH (22:09)
[2018-06-26] MEDS: Piperacillin/Tazobact 3.375 GM in Sodium Chloride 0.9% 100 ML IVPB SCH ×4 (04:07→22:04)
[2018-06-26 07:38] LABS: MEAN CELL VOLUME 86.2 fl (81.0-99.0); MEAN CORPUSCULAR HEMOGLOBIN 29.1 pg (27.0-31.0); MEAN CORPUSCULAR HGB CONC 33.8 g/dL (33.0-37.0); RBC 2.74 Mil/uL (3.80-5.20); RED CELL DISTRIBUTION WIDTH 16.3 % (11.5-14.5); WHITE BLOOD COUNT 6.8 K/uL (4.8-10.8)
[2018-06-26 07:59] LABS: ALB/GLOB RATIO 0.9 (1.0-2.1); ALBUMIN 3.2 g/dL (3.5-5.0); CALCIUM 8.7 mg/dL (8.4-10.2)
[2018-06-26] MEDS: Morphine 30 mg SR Tab PO SCH ×2 (11:36→21:14)
[2018-06-26] MEDS: Insulin Regular 100 units/ml SC SCH ×7 (11:40→23:41)
[2018-06-26] MEDS: Psyllium Packet PO SCH (11:41)
--- NOTE | 2018-06-26 12:13 | CP.PCM.PN ---
Subjective - Date & Time of Evaluation Date of Evaluation: 06/26/18 Time of Evaluation: 08:00 - Subjective Subjective: afeb on iv rx no chest pain Objective - Vital Signs/Intake and Output Vital Signs (last 24 hours): Temp Pulse Resp BP Pulse Ox 98.1 F 93 H 20 147/66 99 06/26/18 08:37 06/26/18 11:42 06/26/18 08:37 06/26/18 11:42 06/26/18 08:37 - Medications Medications: Current Medications Amlodipine Besylate (Norvasc) 10 mg PO DAILY [facility] Last Admin: 06/26/18 11:42 Dose: 10 mg Aspirin (Aspirin) 325 mg PO DAILY [facility] Last Admin: 06/26/18 11:55 Dose: 325 mg Atorvastatin Calcium (Lipitor) 40 mg PO HS [facility] Last Admin: 06/25/18 22:08 Dose: 40 mg Carvedilol (Coreg) 25 mg PO Q12 [facility] Last Admin: 06/26/18 11:40 Dose: 25 mg Clonidine HCl (Catapres) 0.1 mg PO Q6 PRN PRN Reason: Systolic Blood Pressure Last Admin: 06/25/18 09:45 Dose: 0.1 mg Clopidogrel Bisulfate (Plavix) 75 mg PO DAILY [facility] Last Admin: 06/26/18 11:42 Dose: 75 mg Docusate Sodium (Colace) 100 mg PO BID [facility] Last Admin: 06/26/18 11:42 Dose: 100 mg Folic Acid (Folic Acid) 1 mg PO DAILY [facility] Last Admin: 06/26/18 11:41 Dose: 1 mg Furosemide (Lasix) 40 mg PO DAILY [facility] Last Admin: 06/26/18 11:41 Dose: 40 mg Hydralazine HCl (Apresoline) 100 mg PO TID [facility] Last Admin: 06/26/18 11:42 Dose: 100 mg Hydromorphone HCl (Dilaudid) 2 mg IVP Q6 PRN PRN Reason: Pain, severe (8-10) Last Admin: 06/26/18 09:46 Dose: 2 mg Piperacillin Sod/Tazobactam (Sod 3.375 gm/ Sodium Chloride) 100 mls @ 100 mls/hr IVPB Q6 [facility]; Protocol Last Admin: 06/26/18 11:37 Dose: 100 mls/hr Insulin Detemir (Levemir) 75 units SC HS [facility] Insulin Human Regular (Humulin R) 30 units SC TID [facility] Last Admin: 06/26/18 11:40 Dose: 30 units Insulin Human Regular (Humulin R) 0 units SC ACHS [facility]; Protocol Last Admin: 06/26/18 11:40 Dose: 4 units Lactulose (Enulose) 20 gm PO DAILY PRN PRN Reason: Constipation Last Admin: 06/24/18 08:56 Dose: 20 gm Lanthanum Carbonate (Fosrenol) 500 mg PO TID [facility] Last Admin: 06/26/18 11:41 Dose: 500 mg Morphine Sulfate (Morphine Extended Release Tab) 30 mg PO Q12 [facility] Last Admin: 06/26/18 11:36 Dose: Not Given Ondansetron HCl (Zofran Inj) 4 mg IVP Q4 PRN PRN Reason: Nausea/Vomiting Last Admin: 06/18/18 17:26 Dose: 4 mg Psyllium Hydrophilic Mucilloid (Hydrocil Instant) 1 pkt PO DAILY [facility] Last Admin: 06/26/18 11:41 Dose: 1 pkt Ramipril (Altace) 5 mg PO DAILY [facility] Last Admin: 06/26/18 11:42 Dose: 5 mg - Labs Labs: 06/26/18 06:00 06/26/18 06:00 PT 11.4 Seconds (9.8-13.1) 06/10/18 12:30 INR 1.0 06/10/18 12:30 APTT 34.0 Seconds (25.6-37.1) 06/10/18 12:30 - Constitutional Appears: Non-toxic, Chronically Ill - Head Exam Head Exam: NORMOCEPHALIC - Eye Exam Eye Exam: absent: Scleral icterus - ENT Exam ENT Exam: Mucous Membranes Dry - Neck Exam Neck Exam: absent: Lymphadenopathy - Respiratory Exam Respiratory Exam: Decreased Breath Sounds - Cardiovascular Exam Cardiovascular Exam: REGULAR RHYTHM - GI/Abdominal Exam GI & Abdominal Exam: Distended, Soft - Rectal Exam Rectal Exam: Deferred - Exam Exam: NORMAL INSPECTION - Extremities Exam Extremities Exam: Pedal Edema. absent: Tenderness - Back Exam Back Exam: absent: CVA tenderness (L), CVA tenderness (R) Assessment and Plan (1) Foot pain Status: Acute (2) Foot ulcer Status: Chronic (3) CAD (coronary artery disease) Status: Acute - Assessment and Plan (Free Text) Assessment: plan is for OR / removal of fixator
--- NOTE | 2018-06-26 15:35 | CP.PCM.PN ---
Subjective - Date & Time of Evaluation Date of Evaluation: 06/26/18 Time of Evaluation: 15:34 - Subjective Subjective: Podiatry Progress Note - Dr. James Macdonald 52 y/o female seen and evaluated at bedside this afternoon. Patient states she is feeling well and is aware of plans to go to the OR tomorrow for external fixator removal. No new complaints with external fixator. Denies F/C/N/V/CP/SOB. Pt providing verbal and written consent for blood transfusion today prior to surgery. Objective - Vital Signs/Intake and Output Vital Signs (last 24 hours): Temp Pulse Resp BP Pulse Ox 98.1 F 62 20 150/71 99 06/26/18 08:37 06/26/18 15:02 06/26/18 08:37 06/26/18 15:02 06/26/18 08:37 - Medications Medications: Current Medications Amlodipine Besylate (Norvasc) 10 mg PO DAILY [facility] Last Admin: 06/26/18 11:42 Dose: 10 mg Aspirin (Aspirin) 325 mg PO DAILY [facility] Last Admin: 06/26/18 11:55 Dose: 325 mg Atorvastatin Calcium (Lipitor) 40 mg PO HS [facility] Last Admin: 06/25/18 22:08 Dose: 40 mg Carvedilol (Coreg) 25 mg PO Q12 [facility] Last Admin: 06/26/18 11:40 Dose: 25 mg Clonidine HCl (Catapres) 0.1 mg PO Q6 PRN PRN Reason: Systolic Blood Pressure Last Admin: 06/25/18 09:45 Dose: 0.1 mg Clopidogrel Bisulfate (Plavix) 75 mg PO DAILY [facility] Last Admin: 06/26/18 11:42 Dose: 75 mg Docusate Sodium (Colace) 100 mg PO BID [facility] Last Admin: 06/26/18 11:42 Dose: 100 mg Folic Acid (Folic Acid) 1 mg PO DAILY [facility] Last Admin: 06/26/18 11:41 Dose: 1 mg Furosemide (Lasix) 40 mg PO DAILY [facility] Last Admin: 06/26/18 11:41 Dose: 40 mg Hydralazine HCl (Apresoline) 100 mg PO TID [facility] Last Admin: 06/26/18 15:02 Dose: 100 mg Hydromorphone HCl (Dilaudid) 2 mg IVP Q6 PRN PRN Reason: Pain, severe (8-10) Last Admin: 12/09/18 09:46 Dose: 2 mg Piperacillin Sod/Tazobactam (Sod 3.375 gm/ Sodium Chloride) 100 mls @ 100 mls/hr IVPB Q6 [facility]; Protocol Last Admin: 06/26/18 11:37 Dose: 100 mls/hr Insulin Detemir (Levemir) 75 units SC HS [facility] Insulin Human Regular (Humulin R) 30 units SC TID [facility] Last Admin: 06/26/18 15:03 Dose: 30 units Insulin Human Regular (Humulin R) 0 units SC ACHS [facility]; Protocol Last Admin: 06/26/18 12:21 Dose: Not Given Lactulose (Enulose) 20 gm PO DAILY PRN PRN Reason: Constipation Last Admin: 06/24/18 08:56 Dose: 20 gm Lanthanum Carbonate (Fosrenol) 500 mg PO TID [facility] Last Admin: 06/26/18 15:03 Dose: 500 mg Morphine Sulfate (Morphine Extended Release Tab) 30 mg PO Q12 [facility] Last Admin: 06/26/18 11:36 Dose: Not Given Ondansetron HCl (Zofran Inj) 4 mg IVP Q4 PRN PRN Reason: Nausea/Vomiting Last Admin: 06/18/18 17:26 Dose: 4 mg Psyllium Hydrophilic Mucilloid (Hydrocil Instant) 1 pkt PO DAILY [facility] Last Admin: 06/26/18 11:41 Dose: 1 pkt Ramipril (Altace) 5 mg PO DAILY [facility] Last Admin: 06/26/18 11:42 Dose: 5 mg - Labs Labs: 06/26/18 06:00 06/26/18 06:00 PT 11.4 Seconds (9.8-13.1) 06/10/18 12:30 INR 1.0 06/10/18 12:30 APTT 34.0 Seconds (25.6-37.1) 06/10/18 12:30 - Constitutional Appears: Well, Non-toxic, No Acute Distress - Extremities Exam Additional comments: 52 yo female s/p left foot charcot neuroarthropathy reconstruction with external fixation Plan: Patient seen and evaluated at bedside Discussed plan with attending, Dr. Macdonald Patient s/p cardiac cath - Dr. Smiley on board, agrees that we can proceed with GABRIEL tomorrow NPO order in place after midnight tonight Meds to be held tonight prior to procedure tomorrow (Aspirin, Plavix) Pt to go to OR tomorrow at 9am with Dr. Macdonald for removal of external fixator Blood transfusion consent obtained with all risks and benefits explained thoroughly Will continue to follow patient - Neurological Exam Neurological Exam: Alert, Awake, Oriented x3 - Psychiatric Exam Psychiatric exam: Normal Affect, Normal Mood
[2018-06-26] MEDS: Insulin Detemir 100 Units/ml Inj SC SCH (23:44)
[2018-06-27] MEDS: Piperacillin/Tazobact 3.375 GM in Sodium Chloride 0.9% 100 ML IVPB SCH (04:41)
--- NOTE | 2018-06-27 06:29 | CP.PCM.PN ---
Subjective - Date & Time of Evaluation Date of Evaluation: 06/27/18 Time of Evaluation: 06:27 - Subjective Subjective: Podiatry progress note for Dr. Macdonald 52 y/o female patient seen and evaluated prior to surgery. Patient aware surgery is today, and patient NPO status confirmed. Patient AAOx3, and in NAD. Patient denies F/N/V/SOB/CP. Objective - Vital Signs/Intake and Output Vital Signs (last 24 hours): Temp Pulse Resp BP Pulse Ox 98.1 F 88 19 173/77 H 96 06/27/18 00:29 06/27/18 00:29 06/27/18 00:29 06/27/18 00:29 06/27/18 00:29 Intake and Output: 06/26/18 06/27/18 18:59 06:59 Intake Total 0 325 Balance 0 325 - Medications Medications: Current Medications Amlodipine Besylate (Norvasc) 10 mg PO DAILY [facility] Last Admin: 06/26/18 11:42 Dose: 10 mg Aspirin (Aspirin) 325 mg PO DAILY [facility] Last Admin: 06/26/18 11:55 Dose: 325 mg Atorvastatin Calcium (Lipitor) 40 mg PO HS [facility] Last Admin: 06/26/18 21:13 Dose: 40 mg Carvedilol (Coreg) 25 mg PO Q12 [facility] Last Admin: 06/26/18 21:08 Dose: 25 mg Clonidine HCl (Catapres) 0.1 mg PO Q6 PRN PRN Reason: Systolic Blood Pressure Last Admin: 06/25/18 09:45 Dose: 0.1 mg Clopidogrel Bisulfate (Plavix) 75 mg PO DAILY [facility] Last Admin: 06/26/18 11:42 Dose: 75 mg Docusate Sodium (Colace) 100 mg PO BID [facility] Last Admin: 06/26/18 18:10 Dose: 100 mg Folic Acid (Folic Acid) 1 mg PO DAILY [facility] Last Admin: 06/26/18 11:41 Dose: 1 mg Furosemide (Lasix) 40 mg PO DAILY [facility] Last Admin: 06/26/18 11:41 Dose: 40 mg Hydralazine HCl (Apresoline) 100 mg PO TID [facility] Last Admin: 06/26/18 18:09 Dose: 100 mg Hydromorphone HCl (Dilaudid) 2 mg IVP Q6 PRN PRN Reason: Pain, severe (8-10) Last Admin: 12/10/18 04:54 Dose: 2 mg Piperacillin Sod/Tazobactam (Sod 3.375 gm/ Sodium Chloride) 100 mls @ 100 mls/hr IVPB Q6 [facility]; Protocol Last Admin: 06/27/18 04:41 Dose: 100 mls/hr Insulin Detemir (Levemir) 75 units SC HS [facility] Last Admin: 06/26/18 23:44 Dose: 75 u Insulin Human Regular (Humulin R) 30 units SC TID [facility] Last Admin: 06/26/18 18:08 Dose: 30 units Insulin Human Regular (Humulin R) 0 units SC ACHS [facility]; Protocol Last Admin: 06/26/18 23:41 Dose: Not Given Lactulose (Enulose) 20 gm PO DAILY PRN PRN Reason: Constipation Last Admin: 06/24/18 08:56 Dose: 20 gm Lanthanum Carbonate (Fosrenol) 500 mg PO TID [facility] Last Admin: 06/26/18 18:09 Dose: 500 mg Morphine Sulfate (Morphine Extended Release Tab) 30 mg PO Q12 [facility] Last Admin: 06/26/18 21:14 Dose: 30 mg Ondansetron HCl (Zofran Inj) 4 mg IVP Q4 PRN PRN Reason: Nausea/Vomiting Last Admin: 06/26/18 20:29 Dose: 4 mg Psyllium Hydrophilic Mucilloid (Hydrocil Instant) 1 pkt PO DAILY [facility] Last Admin: 06/26/18 11:41 Dose: 1 pkt Ramipril (Altace) 5 mg PO DAILY [facility] Last Admin: 06/26/18 11:42 Dose: 5 mg - Labs Labs: 06/26/18 06:00 06/26/18 06:00 PT 11.4 Seconds (9.8-13.1) 06/10/18 12:30 INR 1.0 06/10/18 12:30 APTT 34.0 Seconds (25.6-37.1) 06/10/18 12:30 - Constitutional Appears: Well, Non-toxic, No Acute Distress - Head Exam Head Exam: ATRAUMATIC, NORMOCEPHALIC - Extremities Exam Additional comments: Patient ex-fix dressing C, D, I - Neurological Exam Neurological Exam: Alert, Awake, Oriented x3 - Psychiatric Exam Psychiatric exam: Normal Affect, Normal Mood Assessment and Plan - Assessment and Plan (Free Text) Assessment: 52 y/o female patient seen and evaluated prior to surgery to Left foot, removal of hardware Plan: Patient seen and evaluated Discussed with attending, Dr. Macdonald Chart, labs and vitals reviewed- VSS Patient s/p cardiac cath at [facility] 06/17 and 06/21 - post procedure had HTN, SOB likely from hypertensive pulmonary edema and was transferred to [facility] ICU for monitoring -f/u Dr. Smiley when patient may proceed with GABRIEL Patient provided cardiac clearance from Dr. Smiley to proceed with surgery Patient scheduled for the OR today 06/27/18 at 9:00 AM at this time for removal of hardware Podiatry will continue to follow
[2018-06-27 06:30] LABS: HEMOGLOBIN 8.7 g/dL (12.0-16.0); MEAN CELL VOLUME 83.9 fl (81.0-99.0); MEAN CORPUSCULAR HEMOGLOBIN 28.4 pg (27.0-31.0); MEAN CORPUSCULAR HGB CONC 33.9 g/dL (33.0-37.0); RBC 3.05 Mil/uL (3.80-5.20); RED CELL DISTRIBUTION WIDTH 16.5 % (11.5-14.5); WHITE BLOOD COUNT 6.8 K/uL (4.8-10.8)
[2018-06-27 06:47] LABS: ALBUMIN 3.4 g/dL (3.5-5.0); ALT/SGPT 30 U/L (9-52); AST/SGOT 22 U/L (14-36); BLOOD UREA NITROGEN 39 mg/dl (7-17); GFR NON-AFRICAN AMERICAN 52
[2018-06-27] MEDS ORDERED: Lidocaine 1% Inj (20ml) ONE (07:26)
[2018-06-27] MEDS ORDERED: Bupivacaine HCl 0.5% PF (30 ml) Inj ONE (07:26)
[2018-06-27] MEDS ORDERED: Lidocaine 1% Inj (20ml) IJ ONE (07:50)
[2018-06-27] MEDS ORDERED: Bupivacaine 0.5% Inj(30mL) IJ ONE (07:50)
[2018-06-27] MEDS ORDERED: Sodium Chloride 0.9% 1,000 ML IV SCH (08:00)
[2018-06-27] MEDS: Insulin Regular 100 units/ml SC SCH ×7 (08:00→22:55)
--- NOTE | 2018-06-27 08:43 | CP.PCM.PN ---
Subjective - Date & Time of Evaluation Date of Evaluation: 06/24/18 Time of Evaluation: 08:41 - Subjective Subjective: s/p cath and PCI of LAD and LCx CP and SOB improved Objective - Vital Signs/Intake and Output Vital Signs (last 24 hours): Temp Pulse Resp BP Pulse Ox 98.1 F 88 19 173/77 H 96 06/27/18 00:29 06/27/18 00:29 06/27/18 00:29 06/27/18 00:29 06/27/18 00:29 Intake and Output: 06/27/18 06/27/18 06:59 18:59 Intake Total 325 Balance 325 - Medications Medications: Current Medications Amlodipine Besylate (Norvasc) 10 mg PO DAILY [facility] Last Admin: 06/26/18 11:42 Dose: 10 mg Aspirin (Aspirin) 325 mg PO DAILY [facility] Last Admin: 06/26/18 11:55 Dose: 325 mg Atorvastatin Calcium (Lipitor) 40 mg PO HS [facility] Last Admin: 06/26/18 21:13 Dose: 40 mg Carvedilol (Coreg) 25 mg PO Q12 [facility] Last Admin: 06/26/18 21:08 Dose: 25 mg Clonidine HCl (Catapres) 0.1 mg PO Q6 PRN PRN Reason: Systolic Blood Pressure Last Admin: 06/25/18 09:45 Dose: 0.1 mg Clopidogrel Bisulfate (Plavix) 75 mg PO DAILY [facility] Last Admin: 06/26/18 11:42 Dose: 75 mg Docusate Sodium (Colace) 100 mg PO BID [facility] Last Admin: 06/26/18 18:10 Dose: 100 mg Folic Acid (Folic Acid) 1 mg PO DAILY [facility] Last Admin: 06/26/18 11:41 Dose: 1 mg Furosemide (Lasix) 40 mg PO DAILY [facility] Last Admin: 06/26/18 11:41 Dose: 40 mg Hydralazine HCl (Apresoline) 100 mg PO TID [facility] Last Admin: 06/26/18 18:09 Dose: 100 mg Hydromorphone HCl (Dilaudid) 2 mg IVP Q6 PRN PRN Reason: Pain, severe (8-10) Last Admin: 06/27/18 04:54 Dose: 2 mg Sodium Chloride (Sodium Chloride 0.9%) 1,000 mls @ 0 mls/hr IV .Q0M [facility] Stop: 06/28/18 07:50 Insulin Detemir (Levemir) 75 units SC HS [facility] Last Admin: 06/26/18 23:44 Dose: 75 u Insulin Human Regular (Humulin R) 30 units SC TID [facility] Last Admin: 06/26/18 18:08 Dose: 30 units Insulin Human Regular (Humulin R) 0 units SC ACHS [facility]; Protocol Last Admin: 06/26/18 23:41 Dose: Not Given Lactulose (Enulose) 20 gm PO DAILY PRN PRN Reason: Constipation Last Admin: 06/24/18 08:56 Dose: 20 gm Lanthanum Carbonate (Fosrenol) 500 mg PO TID [facility] Last Admin: 06/26/18 18:09 Dose: 500 mg Morphine Sulfate (Morphine Extended Release Tab) 30 mg PO Q12 [facility] Last Admin: 06/26/18 21:14 Dose: 30 mg Ondansetron HCl (Zofran Inj) 4 mg IVP Q4 PRN PRN Reason: Nausea/Vomiting Last Admin: 06/26/18 20:29 Dose: 4 mg Psyllium Hydrophilic Mucilloid (Hydrocil Instant) 1 pkt PO DAILY [facility] Last Admin: 06/26/18 11:41 Dose: 1 pkt Ramipril (Altace) 5 mg PO DAILY [facility] Last Admin: 06/26/18 11:42 Dose: 5 mg - Labs Labs: 06/27/18 05:20 06/27/18 05:20 PT 11.4 Seconds (9.8-13.1) 06/10/18 12:30 INR 1.0 06/10/18 12:30 APTT 34.0 Seconds (25.6-37.1) 06/10/18 12:30 - Constitutional Appears: Well - Head Exam Head Exam: ATRAUMATIC, NORMAL INSPECTION, NORMOCEPHALIC - Eye Exam Eye Exam: EOMI, Normal appearance, PERRL Pupil Exam: NORMAL ACCOMODATION, PERRL - ENT Exam ENT Exam: Mucous Membranes Moist, Normal Exam - Neck Exam Neck Exam: Full ROM, Normal Inspection. absent: Lymphadenopathy - Respiratory Exam Respiratory Exam: Clear to Ausculation Bilateral, NORMAL BREATHING PATTERN - Cardiovascular Exam Cardiovascular Exam: REGULAR RHYTHM, +S1, +S2. absent: Murmur - GI/Abdominal Exam GI & Abdominal Exam: Soft, Normal Bowel Sounds. absent: Tenderness - Extremities Exam Extremities Exam: Full ROM, Normal Capillary Refill, Normal Inspection. absent: Joint Swelling, Pedal Edema - Back Exam Back Exam: NORMAL INSPECTION - Neurological Exam Neurological Exam: Alert, Awake, CN II-XII Intact, Normal Gait, Oriented x3 - Psychiatric Exam Psychiatric exam: Normal Affect, Normal Mood - Skin Skin Exam: Dry, Intact, Normal Color, Warm Assessment and Plan (1) CAD (coronary artery disease) Assessment & Plan: s/p PCI of LAD and LCx cont dapt cont bb statins Status: Acute (2) Preop cardiovascular exam Assessment & Plan: As per ACC/AHA guidelines she can proceed with planned surgical correction of her foot with low to intermediate risk for perioperative cardiac event Status: Acute (3) CHF (congestive heart failure) Status: Acute (4) Chronic kidney disease Status: Acute (5) Essential hypertension Status: Chronic (6) Hypertension Status: Chronic
--- NOTE | 2018-06-27 08:45 | PN ---
DATE: 06/26/2018 SUBJECTIVE: The patient was seen and examined. Interim events noted. Patient remains in regular medical floor. The patient feels okay. Denies any new complaint other than chronic pain, also did not have . PHYSICAL EXAMINATION: GENERAL: The patient is in no acute distress. VITAL SIGNS: Stable. HEART: S1 and S2 normal and regular. LUNGS: Good bilateral air exchange. ABDOMEN: Soft and nontender. EXTREMITIES: The patient has left lower extremity external fixator tentatively scheduled for removal tomorrow, no sign of distal complication. No edema. No calf swelling. No tenderness. No acute ischemia. 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 DIAGNOSTIC DATA: . PLAN: . Tushar Jarrell MD
[2018-06-27] MEDS ORDERED: Succinylcholine 200 mg/10 ml Inj IV ONE (08:50)
[2018-06-27] MEDS ORDERED: Phenylephrine 10 mg/ml Inj ONE (08:50)
[2018-06-27] MEDS ORDERED: Etomidate 20 mg/10ml Inj IV ONE (08:50)
[2018-06-27] MEDS ORDERED: Midazolam 2 MG/2 ML VIAL ONE ×2 (08:50→09:23)
[2018-06-27] MEDS: Psyllium Packet PO SCH (08:55)
[2018-06-27] MEDS ORDERED: Ropivacaine 0.5% 30ML IV ONE (08:57)
[2018-06-27] MEDS ORDERED: Bupivacaine HCl 0.25% PF (30 ml) Inj ONE (09:10)
[2018-06-27] MEDS ORDERED: Lactated Ringer's 1,000 ML IV ONE (09:15)
[2018-06-27] MEDS ORDERED: Lidocaine 1% 5ml Abboject ONE (09:26)
[2018-06-27] MEDS ORDERED: Propofol 10 mg/ml Inj (20 ML) ONE (09:48)
[2018-06-27] MEDS ORDERED: HYDROmorphone 0.5 mg/0.5 ml ISec IVP PRN (10:23)
--- NOTE | 2018-06-27 10:27 | PCM.SURG1 ---
Surgeon's Initial Post Op Note - Surgeon's Notes Surgeon: Dr. Macdonald Tutoring Assistant: Dr. Margie Doshi PGY-3 Type of Anesthesia: Block Regional, IV Sedation Pre-Operative Diagnosis: Left foot Charcot arthropathy with external fixator Operative Findings: [employer] external fixator Post-Operative Diagnosis: same Operation Performed: Left foot removal of external fixator Specimen/Specimens Removed: none Estimated Blood Loss: EBL {In ML}: 1 Blood Products Given: N/A Drains Used: No Drains Post-Op Condition: Good Date of Surgery/Procedure: 06/27/18 Time of Surgery/Procedure: 08:30
--- NOTE | 2018-06-27 10:27 | PCM.ANESB2 ---
Popliteal Nerve Block - Popliteal Nerve Block Date of Procedure: 06/27/18 Anesthesiologist: Dr. Méndez Pre-Procedure Diagnosis: S/P Charcot foot recons. with external fixator left foot Post-Procedure Diagnosis: S/P Charcot foot recons. with external fixator left foot Procedure Performed: Popliteal Nerve Block Left - Procedure Popliteal Nerve Block: This procedure was explained to the patient that it is for post-operative pain management. Consent was obtained after a thorough discussion with the patient regarding the benefits and possible complications of local anesthetic block of the sciatic nerve at the popliteal level. The patient was brought to the operating room and standard monitors are applied. Time-out was held with the circulating nurse to confirm the correct surgery and the appropriate block. After applying oxygen by nasal cannula and administering IV Sedation, patient's operative leg was gently raised and supported and the groove in between the biceps femoris and vastus lateralis muscles was carefully palpated. The skin approximately 8cm above the popliteal crease was then marked. The ultrasound transducer was then applied to the posterior thigh approximately 8cm above the popliteal crease in the transverse plane and the sciatic nerve before its division was visualized lateral to the popliteal artery and in between the bicep femoris and semimembranosus/semitendinosus muscles. After identification, the lateral portion of the thigh was prepped with Betadine solution three times and Lidocaine 1% was injected subcutaneously for topical anesthesia. At this point, a # 21 gauge Stimuplex insulated 4 inch needle was inserted into pre-marked area and advanced in a perpendicular direction. The needle was inserted above the ultrasound transducer in-plane towards the sciatic nerve in a [id number] direction. Needle advancement was performed carefully under direct ultrasound visualization. Nerve stimulator was used and dorsiflexion of the left foot was elicited at a current of 0.3 MA. After repeated negative aspiration, 5cc of 0.5% Ropivacaine was injected and this was flowed with 15cc of 0.5% Ropivacaine. Under ultrasound guidance the local anesthetics were observed surrounding sciatic nerve . The needle was removed intact and sterile dressing was applied. The patient tolerated the popliteal nerve block well with stable vital signs and was subsequently prepared for the surgery.
[2018-06-27] MEDS ORDERED: Lactated Ringer's 1,000 ML IV SCH (10:30)
--- NOTE | 2018-06-27 10:30 | PCM.ANESB7 ---
Adductor Canal Block - Adductor Canal Block Date of Procedure: 06/27/18 Anesthiologist: Dr. Méndez Pre-Procedure Diagnosis: S/P Charcot foot recons. with external fixator left foot Post-Procedure Diagnosis: S/P Charcot foot recons. with external fixator left foot Procedure Performed: Adductor Canal Block Left - Procedure Adductor Canal Block: The procedure was explained to the patient that it is for the post-operative pain management. Consent was obtained after a thorough discussion with the patient regarding the benefits and possible complications of local anesthetic adductor canal block of the femoral nerve. Standard monitors, as defined by the ASA, were applied to the patient. Time-out was held with the circulating nurse to confirm the appropriate block. After applying supplemental oxygen and administering IV Sedation as needed, the patient was placed in supine position with and the operative leg was flexed slightly at the knee and externally rotated as needed, and was kept anatomically stable. The mid-thigh of the left lower extremity was exposed. The ultrasound transducer was then applied transversely along the medial aspect, about midway down the thigh and the femoral artery and vein were identified in appropriate relation with the sartorius muscle. At this time, the femoral nerve was visualized lateral to the femoral artery within the canal. After thorough identification, this area area was prepped with Chloroprep solution and 1 % Lidocaine was injected subcutaneously for topical anesthesia. At this point, a #22 gauge Stimuplex 4-inch needle was inserted in-plane in a [id number] orientation, and advanced toward the femoral nerve. Advancement was performed carefully under direct ultrasound visualization. After negative aspiration, 5cc of 0.25% Bupivacaine was injected and this was followed with 10cc of 0.25% Bupivacaine. Under ultrasound guidance the local anesthetics were observed spreading around the femoral nerve. The needle was removed intact and sterile dressing was applied. The patient had stable vital signs, was conscious and in no apparent distress. The patient tolerated the femoral nerve block well with stable vital signs and was prepared for subsequent surgery
--- NOTE | 2018-06-27 11:07 | PN ---
DATE: 06/27/2018 SUBJECTIVE: The patient seen and examined. Interim events noted. Consults noted and appreciated. Podiatry interventions noted and appreciated. The patient remains in regular medical floor, tentatively scheduled for surgery today. The patient feels okay. Denies any chest pain or shortness of breath. Her pain is adequately controlled. PHYSICAL EXAMINATION: GENERAL: The patient is in no acute distress. VITAL SIGNS: Stable. HEART: S1 and S2 normal and regular. LUNGS: Good bilateral air exchange. ABDOMEN: Soft, nontender. EXTREMITIES: The patient has left lower extremity external fixator without any distal complication. No edema. No calf swelling. No tenderness. No acute ischemia. CENTRAL NERVOUS SYSTEM: Exam is essentially unchanged. DIAGNOSTIC DATA: Available diagnostic data reviewed. Hemoglobin is 8.7. ASSESSMENT AND PLAN: Overall, the patient is medically stable and was tentatively scheduled for surgery today. Plan as ordered. The patient's history and physical was done on admission and there is no significant change in that. This addendum is for preop history and physical requirement. Plan as ordered. Tushar Jarrell MD
[2018-06-27] MEDS: Morphine 30 mg SR Tab PO SCH ×3 (11:41→21:38)
--- NOTE | 2018-06-27 14:00 | RAD ---
Date of service: 06/27/2018 PROCEDURE: Left Foot Radiographs. HISTORY: Preoperative study 06/10/2018. COMPARISON: None. FINDINGS: BONES: Confirmation of removal of orthopedic hardware. JOINTS: Evidence of Charcot foot better visualized on the current study with subluxation of the tarsal bones relative to the adjacent metatarsals. SOFT TISSUES: Considerable soft tissue swelling at the surgical site. OTHER FINDINGS: None. IMPRESSION: Satisfactory postoperative status.
--- NOTE | 2018-06-27 18:38 | HP ---
SUBJECTIVE: external fixator and getting preop evaluation. The patient was evaluated by Cardiology and had cardiac cath done and nuclear stress test done. The patient also underwent placement of stent. The patient for surgery and is going for surgery tonight. PAST MEDICAL HISTORY: Significant for diabetes, hypertension, elevated cholesterol, morbid obesity, osteoarthritis. PAST SURGICAL HISTORY: Remarkable for fracture of foot and external fixator application. PERSONAL HISTORY: The patient is currently nonsmoker, nondrinker. No substance abuse. MEDICATIONS: The patient is on multiple medications, which is as per medication list. ALLERGIES: THE PATIENT IS NOT ALLERGIC TO ANY MEDICATION. FAMILY HISTORY: Noncontributory. PHYSICAL EXAMINATION: GENERAL: Well-built, well-nourished, overweight 52-year-old female, in no acute distress. VITAL SIGNS: Stable. HEENT: Pupils reacting to light. No JVD. No thyromegaly. No lymphadenopathy. No nystagmus. Normocephalic, atraumatic skull. HEART: S1 and S2, normal and regular. No significant murmur, gallop, or rub is heard. LUNGS: Good bilateral air exchange. No rales or rhonchi. ABDOMEN: Soft, nontender. No organomegaly. No fluids. Bowel sounds are present and normal. EXTREMITIES: The patient has left lower extremity external fixator application. No cyanosis. No complication. No edema. No calf swelling. No tenderness. No acute ischemia. CENTRAL NERVOUS SYSTEM: Essentially unchanged. There is no sign of any acute gross focal motor or sensory neurological deficits. DIAGNOSTIC DATA: Available diagnostic data reviewed. IMPRESSION: Overall, the patient is with multiple medical problems, going for external fixator removal. PLAN: As ordered. Tushar Jarrell MD
[2018-06-27] MEDS: Insulin Detemir 100 Units/ml Inj SC SCH (22:54)
[2018-06-28 06:53] LABS: HEMOGLOBIN 8.1 g/dL (12.0-16.0); MEAN CELL VOLUME 83.9 fl (81.0-99.0); MEAN CORPUSCULAR HEMOGLOBIN 28.6 pg (27.0-31.0); RBC 2.83 Mil/uL (3.80-5.20); RED CELL DISTRIBUTION WIDTH 16.9 % (11.5-14.5)
[2018-06-28] MEDS: Morphine 30 mg SR Tab PO SCH ×2 (09:00→21:43)
[2018-06-28] MEDS: Psyllium Packet PO SCH (09:01)
[2018-06-28] MEDS: Insulin Regular 100 units/ml SC SCH ×7 (09:05→21:47)
--- NOTE | 2018-06-28 09:15 | CP.PCM.PN ---
Subjective - Date & Time of Evaluation Date of Evaluation: 06/28/18 Time of Evaluation: 09:11 - Subjective Subjective: Podiatry progress note for Dr. Macdonald 52 y/o female patient was seen and evaluated at bedside POD1 removal of hardware from the left foot. Patient is AAOx3, and in no acuter distress. Patient states her pain to her left leg and lower back are well-controlled at this time. Patient denies any acute overnight events. Patient is refusing to go to TCU at this time, and states she would like to be discharged home. Objective - Vital Signs/Intake and Output Vital Signs (last 24 hours): Temp Pulse Resp BP Pulse Ox 97.9 F 68 20 108/75 96 06/28/18 08:26 06/28/18 08:26 06/28/18 08:26 06/28/18 08:26 06/28/18 08:26 - Medications Medications: Current Medications Amlodipine Besylate (Norvasc) 10 mg PO DAILY [facility] Last Admin: 06/27/18 08:47 Dose: 10 mg Aspirin (Aspirin) 325 mg PO DAILY [facility] Last Admin: 06/27/18 16:48 Dose: Not Given Atorvastatin Calcium (Lipitor) 40 mg PO HS [facility] Last Admin: 06/27/18 21:31 Dose: 40 mg Carvedilol (Coreg) 25 mg PO Q12 [facility] Last Admin: 06/27/18 21:31 Dose: 25 mg Clonidine HCl (Catapres) 0.1 mg PO Q6 PRN PRN Reason: Systolic Blood Pressure Last Admin: 06/28/18 00:19 Dose: 0.1 mg Clopidogrel Bisulfate (Plavix) 75 mg PO DAILY [facility] Last Admin: 06/26/18 11:42 Dose: 75 mg Docusate Sodium (Colace) 100 mg PO BID [facility] Last Admin: 06/27/18 17:31 Dose: 100 mg Folic Acid (Folic Acid) 1 mg PO DAILY [facility] Last Admin: 06/27/18 08:55 Dose: Not Given Furosemide (Lasix) 40 mg PO DAILY [facility] Last Admin: 06/27/18 12:09 Dose: 40 mg Hydralazine HCl (Apresoline) 100 mg PO TID [facility] Last Admin: 06/27/18 17:31 Dose: 100 mg Hydromorphone HCl (Dilaudid) 2 mg IVP Q6 PRN PRN Reason: Pain, severe (8-10) Last Admin: 06/27/18 17:30 Dose: 2 mg Hydromorphone HCl (Dilaudid 0.2 Mg/Ml Glassware Selector) 0 mg IV PRN PRN; Protocol PRN Reason: Pain, moderate (4-7) Last Admin: 06/27/18 22:07 Dose: 6 mg Lactated Ringer's (Lactated Ringer's) 1,000 mls @ 100 mls/hr IV .Q10H [facility] Insulin Detemir (Levemir) 75 units SC HS [facility] Last Admin: 06/27/18 22:54 Dose: 75 u Insulin Human Regular (Humulin R) 30 units SC TID [facility] Last Admin: 06/27/18 18:46 Dose: 30 units Insulin Human Regular (Humulin R) 0 units SC ACHS [facility]; Protocol Last Admin: 06/27/18 22:55 Dose: Not Given Lactulose (Enulose) 20 gm PO DAILY PRN PRN Reason: Constipation Last Admin: 06/24/18 08:56 Dose: 20 gm Lanthanum Carbonate (Fosrenol) 500 mg PO TID [facility] Last Admin: 06/27/18 17:29 Dose: 500 mg Morphine Sulfate (Morphine Extended Release Tab) 30 mg PO Q12 [facility] Last Admin: 06/27/18 21:38 Dose: Not Given Ondansetron HCl (Zofran Inj) 4 mg IVP Q4 PRN PRN Reason: Nausea/Vomiting Last Admin: 06/26/18 20:29 Dose: 4 mg Psyllium Hydrophilic Mucilloid (Hydrocil Instant) 1 pkt PO DAILY [facility] Last Admin: 06/27/18 08:55 Dose: Not Given Ramipril (Altace) 5 mg PO DAILY [facility] Last Admin: 06/27/18 08:56 Dose: Not Given - Labs Labs: 06/28/18 06:45 06/27/18 05:20 PT 11.4 Seconds (9.8-13.1) 06/10/18 12:30 INR 1.0 06/10/18 12:30 APTT 34.0 Seconds (25.6-37.1) 06/10/18 12:30 - Constitutional Appears: Well, Non-toxic, No Acute Distress - Head Exam Head Exam: ATRAUMATIC, NORMOCEPHALIC - Extremities Exam Additional comments: Left Lower Extremity Exam VASC: DP and PT palpable, CFT less than 3 seconds X 10, no lower extremity edema NEURO: diminished sensation ORTHO: pain on palpation, pain with range of motion of the foot, patient guarding due to pain DERM: all pin sites are clean and dry, no erythema noted, no clinical signs of infection, no open wounds - Neurological Exam Neurological Exam: Alert, Awake, Oriented x3 - Psychiatric Exam Psychiatric exam: Normal Affect, Normal Mood Assessment and Plan - Assessment and Plan (Free Text) Assessment: 52 y/o female patient seen and evaluated POD1 removal of hardware from the left foot Plan: Patient seen and evaluated Discussed with attending, Dr. Macdonald Chart, labs and vitals reviewed- VSS Patient s/p cardiac cath [place] [facility] [place] and 06/21 - post procedure had HTN, SOB likely from hypertensive pulmonary edema and was transferred to [facility] [place] [place] for monitoring Patient hardware of the left foot was removed on 06/27/18 Post-operative x-rays: all hardware removed, considerable soft tissue swelling, evidence of Charcot foot better visualized with subluxation of the tarsal bones relative to the adjacent metatarsals Patient pin sites cleansed with saline, and dressed with xeroform, gauze, kerlix, and HELGA Patient stable from Podiatry standpoint for discharge Podiatry will continue to follow patient while in house
--- NOTE | 2018-06-28 09:26 | CP.PCM.PN ---
<Rea Wan - Last Filed: 06/28/18 16:11> Subjective - Date & Time of Evaluation Date of Evaluation: 06/28/18 Time of Evaluation: 08:00 - Subjective Subjective: Seen and examined this morning with Dr. Jarrell. POD 1. Denies left foot pain, chest pain, cough, dyspnea. States she does not want to go to rehab. Would like to go home with services. States pain is controlled with STAGE BUILDER pump. Objective - Vital Signs/Intake and Output Vital Signs (last 24 hours): Temp Pulse Resp BP Pulse Ox 97.9 F 86 20 176/80 H 96 06/28/18 08:26 06/28/18 09:07 06/28/18 08:26 06/28/18 09:07 06/28/18 08:26 - Medications Medications: Current Medications Amlodipine Besylate (Norvasc) 10 mg PO DAILY [facility] Last Admin: 06/28/18 09:00 Dose: 10 mg Aspirin (Aspirin) 325 mg PO DAILY [facility] Last Admin: 06/28/18 09:13 Dose: 325 mg Atorvastatin Calcium (Lipitor) 40 mg PO HS [facility] Last Admin: 06/27/18 21:31 Dose: 40 mg Carvedilol (Coreg) 25 mg PO Q12 [facility] Last Admin: 06/28/18 09:04 Dose: 25 mg Clonidine HCl (Catapres) 0.1 mg PO Q6 PRN PRN Reason: Systolic Blood Pressure Last Admin: 06/28/18 09:07 Dose: 0.1 mg Clopidogrel Bisulfate (Plavix) 75 mg PO DAILY [facility] Last Admin: 06/28/18 09:01 Dose: 75 mg Docusate Sodium (Colace) 100 mg PO BID [facility] Last Admin: 06/28/18 09:05 Dose: 100 mg Folic Acid (Folic Acid) 1 mg PO DAILY [facility] Last Admin: 06/28/18 09:04 Dose: 1 mg Furosemide (Lasix) 40 mg PO DAILY [facility] Last Admin: 06/28/18 09:01 Dose: 40 mg Hydralazine HCl (Apresoline) 100 mg PO TID [facility] Last Admin: 06/28/18 09:00 Dose: 100 mg Hydromorphone HCl (Dilaudid) 2 mg IVP Q6 PRN PRN Reason: Pain, severe (8-10) Last Admin: 06/27/18 17:30 Dose: 2 mg Hydromorphone HCl (Dilaudid 0.2 Mg/Ml Turbine Mechanic) 0 mg IV PRN PRN; Protocol PRN Reason: Pain, moderate (4-7) Last Admin: 06/27/18 22:07 Dose: 6 mg Lactated Ringer's (Lactated Ringer's) 1,000 mls @ 100 mls/hr IV .Q10H [facility] Insulin Detemir (Levemir) 75 units SC [facility] Last Admin: 06/27/18 22:54 Dose: 75 u Insulin Human Regular (Humulin R) 30 units SC TID [facility] Last Admin: 06/28/18 09:05 Dose: 30 units Insulin Human Regular (Humulin R) 0 units SC ACHS [facility]; Protocol Last Admin: 06/28/18 09:05 Dose: 3 units Lactulose (Enulose) 20 gm PO DAILY PRN PRN Reason: Constipation Last Admin: 06/24/18 08:56 Dose: 20 gm Lanthanum Carbonate (Fosrenol) 500 mg PO TID [facility] Last Admin: 06/28/18 09:09 Dose: Not Given Morphine Sulfate (Morphine Extended Release Tab) 30 mg PO Q12 [facility] Last Admin: 06/27/18 21:38 Dose: Not Given Ondansetron HCl (Zofran Inj) 4 mg IVP Q4 PRN PRN Reason: Nausea/Vomiting Last Admin: 06/26/18 20:29 Dose: 4 mg Psyllium Hydrophilic Mucilloid (Hydrocil Instant) 1 pkt PO DAILY [facility] Last Admin: 06/28/18 09:01 Dose: 1 pkt Ramipril (Altace) 5 mg PO DAILY [facility] Last Admin: 06/28/18 09:00 Dose: 5 mg - Labs Labs: 06/28/18 06:45 06/27/18 05:20 PT 11.4 Seconds (9.8-13.1) 06/10/18 12:30 INR 1.0 06/10/18 12:30 APTT 34.0 Seconds (25.6-37.1) 06/10/18 12:30 - Constitutional Appears: No Acute Distress - Head Exam Head Exam: NORMAL INSPECTION - Eye Exam Eye Exam: Normal appearance - ENT Exam ENT Exam: Mucous Membranes Moist - Respiratory Exam Respiratory Exam: Clear to Ausculation Bilateral - Cardiovascular Exam Cardiovascular Exam: REGULAR RHYTHM, +S1, +S2. absent: Murmur - GI/Abdominal Exam GI & Abdominal Exam: Normal Bowel Sounds - Extremities Exam Additional comments: Left extremity grossly swollen from ankle down, wrapped in bandage, toes visible- pink, warm, with good capillary refill. Motor and sensory in tact. No calf tenderness - Neurological Exam Neurological Exam: Alert - Psychiatric Exam Psychiatric exam: Normal Affect - Skin Skin Exam: Normal Color Assessment and Plan - Assessment and Plan (Free Text) Assessment: 52 yo patient with significant cardiac hx (CAD with 2 stents), DM, recent L foot surgery due to OM and Charcot deformity, with chronic L foot ulcer admitted for removal of external fixator. Prior to procedure, pt had 2 PCI at [facility] with Dr. Smiley. -External hardware removed from left foot yesterday. Post operative Xrays show removal of all hardware -POD 1, pain controlled, unable to participate w/ PT due to pain -Podiatry following: cleared for d/c. -C/W Dual antiplatelet, coreg, statin, antihypertensives -ID following, Dr. Kiser, Received Zosyn from 06/10 to 06/27. 2 weeks total. Will confirm completion with Dr. Kiser -DM, basal bolus home regimen Likely discharge tomorrow, pending PT evaluation and home services arrangements. <Tushar Jarrell - Last Filed: 07/01/18 10:03> Objective - Vital Signs/Intake and Output Vital Signs (last 24 hours): Temp Pulse Resp BP Pulse Ox 98.5 F 81 20 156/74 H 97 06/30/18 09:00 06/30/18 13:18 06/30/18 09:00 06/30/18 13:18 06/30/18 09:00 - Labs Labs: 06/28/18 06:45 06/28/18 18:00 PT 11.4 Seconds (9.8-13.1) 06/10/18 12:30 INR 1.0 06/10/18 12:30 APTT 34.0 Seconds (25.6-37.1) 06/10/18 12:30 Assessment and Plan - Assessment and Plan (Free Text) Assessment: Patient was personally seen and examined by me in rounds with residents. Available labs and diagnostic data reviewed. Case, Patient's condition and management plan discussed with residents in rounds. Agree with resident's progress note. Plan: As ordered.
[2018-06-28 19:32] LABS: ALBUMIN 3.7 g/dL (3.5-5.0); ALT/SGPT 15 U/L (9-52); AST/SGOT 25 U/L (14-36); BLOOD UREA NITROGEN 33 mg/dl (7-17); CALCIUM 9.3 mg/dL (8.4-10.2); GFR NON-AFRICAN AMERICAN 58
[2018-06-28] MEDS: Insulin Detemir 100 Units/ml Inj SC SCH (21:46)
--- NOTE | 2018-06-29 07:37 | CP.PCM.PN ---
<Rea Wan - Last Filed: 06/29/18 07:35> Subjective - Date & Time of Evaluation Date of Evaluation: 06/29/18 Time of Evaluation: 08:00 - Subjective Subjective: Pt seen and examined this morning with Dr. Jarrell. Pt complains of pain throughout the night. States the dilaudid helps but wears off in an hour. States she is prepared to participate with physical therapy today today but is adamant that she does not want to go to rehab and would rather do PT outpatient. Objective - Vital Signs/Intake and Output Vital Signs (last 24 hours): Temp Pulse Resp BP Pulse Ox 98.9 F 88 18 158/69 H 95 06/28/18 23:41 06/28/18 23:41 06/28/18 23:41 06/28/18 23:41 06/28/18 23:41 - Medications Medications: Current Medications Alprazolam (Xanax) 0.25 mg PO BID PRN PRN Reason: Anxiety Stop: 07/05/18 19:16 Last Admin: 06/28/18 19:41 Dose: 0.25 mg Amlodipine Besylate (Norvasc) 10 mg PO DAILY [facility] Last Admin: 06/28/18 09:00 Dose: 10 mg Aspirin (Aspirin) 325 mg PO DAILY [facility] Last Admin: 06/28/18 09:13 Dose: 325 mg Atorvastatin Calcium (Lipitor) 40 mg PO HS [facility] Last Admin: 06/28/18 21:43 Dose: 40 mg Carvedilol (Coreg) 25 mg PO Q12 [facility] Last Admin: 06/28/18 21:42 Dose: 25 mg Clonidine HCl (Catapres) 0.1 mg PO Q6 PRN PRN Reason: Systolic Blood Pressure Last Admin: 06/28/18 09:07 Dose: 0.1 mg Clopidogrel Bisulfate (Plavix) 75 mg PO DAILY [facility] Last Admin: 06/28/18 09:01 Dose: 75 mg Docusate Sodium (Colace) 100 mg PO BID [facility] Last Admin: 06/28/18 17:26 Dose: 100 mg Folic Acid (Folic Acid) 1 mg PO DAILY [facility] Last Admin: 06/28/18 09:04 Dose: 1 mg Furosemide (Lasix) 40 mg PO DAILY [facility] Last Admin: 06/28/18 09:01 Dose: 40 mg Hydralazine HCl (Apresoline) 100 mg PO TID [facility] Last Admin: 06/28/18 17:23 Dose: 100 mg Hydromorphone HCl (Dilaudid) 2 mg IVP Q4 PRN PRN Reason: Pain, severe (8-10) Last Admin: 06/29/18 06:24 Dose: 2 mg Lactated Ringer's (Lactated Ringer's) 1,000 mls @ 100 mls/hr IV .Q10H [facility] Insulin Detemir (Levemir) 75 units SC [facility] Last Admin: 06/28/18 21:46 Dose: Not Given Insulin Human Regular (Humulin R) 30 units SC TID [facility] Last Admin: 06/28/18 17:27 Dose: 30 units Insulin Human Regular (Humulin R) 0 units SC ACHS [facility]; Protocol Last Admin: 06/28/18 21:47 Dose: Not Given Lactulose (Enulose) 20 gm PO DAILY PRN PRN Reason: Constipation Last Admin: 06/28/18 17:24 Dose: 20 gm Lanthanum Carbonate (Fosrenol) 500 mg PO TID [facility] Last Admin: 06/28/18 17:26 Dose: Not Given Morphine Sulfate (Morphine Extended Release Tab) 30 mg PO Q12 [facility] Last Admin: 06/28/18 21:43 Dose: Not Given Ondansetron HCl (Zofran Inj) 4 mg IVP Q4 PRN PRN Reason: Nausea/Vomiting Last Admin: 06/26/18 20:29 Dose: 4 mg Psyllium Hydrophilic Mucilloid (Hydrocil Instant) 1 pkt PO DAILY [facility] Last Admin: 06/28/18 09:01 Dose: 1 pkt Ramipril (Altace) 5 mg PO DAILY [facility] Last Admin: 06/28/18 09:00 Dose: 5 mg - Labs Labs: 06/28/18 06:45 06/28/18 18:00 PT 11.4 Seconds (9.8-13.1) 06/10/18 12:30 INR 1.0 06/10/18 12:30 APTT 34.0 Seconds (25.6-37.1) 06/10/18 12:30 - Constitutional Appears: No Acute Distress - Head Exam Head Exam: NORMAL INSPECTION - Eye Exam Eye Exam: Normal appearance - ENT Exam ENT Exam: Mucous Membranes Moist - Respiratory Exam Respiratory Exam: Clear to Ausculation Bilateral - Cardiovascular Exam Cardiovascular Exam: REGULAR RHYTHM - Extremities Exam Extremities Exam: Normal Capillary Refill - Back Exam Additional comments: Left foot wrapped in bandage, toese visible, pink, warm, good capillary refill, motor and sensory in tact - Neurological Exam Neurological Exam: Alert, Oriented x3 - Psychiatric Exam Psychiatric exam: Normal Affect - Skin Skin Exam: Normal Color Assessment and Plan - Assessment and Plan (Free Text) Assessment: 52 yo patient with significant cardiac hx (CAD with 2 stents), DM, recent L foot surgery due to OM and Charcot deformity, with chronic L foot ulcer admitted for removal of external fixator. Prior to procedure, pt had 2 PCI at [facility] with Dr. Smiley. -External hardware removed from left foot on 06/27. Post operative Xrays show removal of all hardware -POD 2, - LEATHER HEEL BREASTER pump stopped last night, pain not well controlled with current regimen -Podiatry following: cleared for d/c. - Will resume PT today for dispo planning, WBAT -C/W Dual antiplatelet, coreg, statin, antihypertensives -ID following, Dr. Kiser, Received Zosyn from 06/10 to 06/27. 2 weeks total. Will confirm completion with Dr. Kiser and po meds on discharge -DM, basal bolus home regimen Likely discharge today or tomorrow, pending pain controll and PT evaluation <Tushar Jarrell - Last Filed: 07/01/18 10:02> Objective - Vital Signs/Intake and Output Vital Signs (last 24 hours): Temp Pulse Resp BP Pulse Ox 98.5 F 81 20 156/74 H 97 06/30/18 09:00 06/30/18 13:18 06/30/18 09:00 06/30/18 13:18 06/30/18 09:00 - Labs Labs: 06/28/18 06:45 06/28/18 18:00 PT 11.4 Seconds (9.8-13.1) 06/10/18 12:30 INR 1.0 06/10/18 12:30 APTT 34.0 Seconds (25.6-37.1) 06/10/18 12:30 Assessment and Plan - Assessment and Plan (Free Text) Assessment: Patient was personally seen and examined by me in rounds with residents. Available labs and diagnostic data reviewed. Case, Patient's condition and management plan discussed with residents in rounds. Agree with resident's progress note. Plan: As ordered.
[2018-06-29] MEDS: Insulin Regular 100 units/ml SC SCH ×7 (09:36→21:32)
[2018-06-29] MEDS: Psyllium Packet PO SCH (09:40)
--- NOTE | 2018-06-29 10:17 | CP.PCM.PN ---
Subjective - Date & Time of Evaluation Date of Evaluation: 06/29/18 Time of Evaluation: 10:14 - Subjective Subjective: Podiatry progress note for Dr. Macdonald 52 y/o female patient was seen and evaluated at bedside POD2 removal of hardware from the left foot. Patient is AAOx3, and in no acuter distress. Patient states her pain to her left leg and lower back are well-controlled at this time. Patient denies any acute overnight events. Patient is refusing to go to TCU at this time, and states she would like to be discharged home. Objective - Vital Signs/Intake and Output Vital Signs (last 24 hours): Temp Pulse Resp BP Pulse Ox 98.5 F 96 H 20 156/81 H 99 06/29/18 08:52 06/29/18 09:41 06/29/18 08:52 06/29/18 09:41 06/29/18 08:52 - Medications Medications: Current Medications Alprazolam (Xanax) 0.25 mg PO BID PRN PRN Reason: Anxiety Stop: 07/05/18 19:16 Last Admin: 06/28/18 19:41 Dose: 0.25 mg Amlodipine Besylate (Norvasc) 10 mg PO DAILY [facility] Last Admin: 06/29/18 09:41 Dose: 10 mg Aspirin (Aspirin) 325 mg PO DAILY [facility] Last Admin: 06/29/18 09:33 Dose: 325 mg Atorvastatin Calcium (Lipitor) 40 mg PO HS [facility] Last Admin: 06/28/18 21:43 Dose: 40 mg Carvedilol (Coreg) 25 mg PO Q12 [facility] Last Admin: 06/29/18 09:34 Dose: 25 mg Clonidine HCl (Catapres) 0.1 mg PO Q6 PRN PRN Reason: Systolic Blood Pressure Last Admin: 06/28/18 09:07 Dose: 0.1 mg Clopidogrel Bisulfate (Plavix) 75 mg PO DAILY [facility] Last Admin: 06/29/18 09:41 Dose: 75 mg Docusate Sodium (Colace) 100 mg PO BID [facility] Last Admin: 06/29/18 09:33 Dose: 100 mg Folic Acid (Folic Acid) 1 mg PO DAILY [facility] Last Admin: 06/29/18 09:35 Dose: 1 mg Furosemide (Lasix) 40 mg PO DAILY [facility] Last Admin: 06/29/18 09:41 Dose: 40 mg Hydralazine HCl (Apresoline) 100 mg PO TID [facility] Last Admin: 06/29/18 09:32 Dose: 100 mg Hydromorphone HCl (Dilaudid) 2 mg IVP Q4 PRN PRN Reason: Pain, severe (8-10) Last Admin: 06/29/18 06:24 Dose: 2 mg Lactated Ringer's (Lactated Ringer's) 1,000 mls @ 100 mls/hr IV .Q10H [facility] Insulin Detemir (Levemir) 75 units SC HS [facility] Last Admin: 06/28/18 21:46 Dose: Not Given Insulin Human Regular (Humulin R) 30 units SC TID [facility] Last Admin: 06/29/18 09:36 Dose: 30 units Insulin Human Regular (Humulin R) 0 units SC ACHS [facility]; Protocol Last Admin: 06/29/18 09:38 Dose: 4 units Lactulose (Enulose) 20 gm PO DAILY PRN PRN Reason: Constipation Last Admin: 06/28/18 17:24 Dose: 20 gm Lanthanum Carbonate (Fosrenol) 500 mg PO TID [facility] Last Admin: 06/29/18 09:36 Dose: 500 mg Morphine Sulfate (Morphine Extended Release Tab) 30 mg PO Q12 [facility] Last Admin: 06/28/18 21:43 Dose: Not Given Ondansetron HCl (Zofran Inj) 4 mg IVP Q4 PRN PRN Reason: Nausea/Vomiting Last Admin: 06/26/18 20:29 Dose: 4 mg Psyllium Hydrophilic Mucilloid (Hydrocil Instant) 1 pkt PO DAILY [facility] Last Admin: 06/29/18 09:40 Dose: 1 pkt Ramipril (Altace) 5 mg PO DAILY [facility] Last Admin: 06/29/18 09:28 Dose: 5 mg - Labs Labs: 06/28/18 06:45 06/28/18 18:00 PT 11.4 Seconds (9.8-13.1) 06/10/18 12:30 INR 1.0 06/10/18 12:30 APTT 34.0 Seconds (25.6-37.1) 06/10/18 12:30 - Constitutional Appears: Well, Non-toxic, No Acute Distress - Head Exam Head Exam: ATRAUMATIC, NORMOCEPHALIC - Extremities Exam Additional comments: Left Lower Extremity Exam VASC: DP and PT palpable, CFT less than 3 seconds X 10, no lower extremity edema NEURO: diminished sensation ORTHO: pain on palpation, pain with range of motion of the foot, patient guarding due to pain DERM: all pin sites are clean and dry with scab formations, no erythema noted, no clinical signs of infection, no open wounds - Neurological Exam Neurological Exam: Alert, Awake, Oriented x3 - Psychiatric Exam Psychiatric exam: Normal Affect, Normal Mood Assessment and Plan - Assessment and Plan (Free Text) Assessment: 52 y/o female patient seen and evaluated POD2 removal of hardware from the left foot Plan: Patient seen and evaluated Discussed with attending, Dr. Macdonald Chart, labs and vitals reviewed- VSS [place] [facility] - post procedure had HTN, SOB likely from hypertensive pulmonary edema and was transferred to [facility] [place] for monitoring Patient hardware of the left foot was removed on 06/27/18 Post-operative x-rays: all hardware removed, considerable soft tissue swelling, evidence of Charcot foot better visualized with subluxation of the tarsal bones relative to the adjacent metatarsals Patient pin sites cleansed with saline, and dressed with xeroform, gauze, kerlix, and HELGA Patient was seen with Physical therapy, and CamBoot was applied to patient's comfort Patient stable from Podiatry standpoint for discharge Podiatry will continue to follow patient while in house
[2018-06-29] MEDS: Morphine 30 mg SR Tab PO SCH ×2 (10:21→21:30)
--- NOTE | 2018-06-29 13:15 | CP.PCM.PN ---
Subjective - Date & Time of Evaluation Date of Evaluation: 06/29/18 Time of Evaluation: 08:00 - Subjective Subjective: fixator off no fever healing Objective - Vital Signs/Intake and Output Vital Signs (last 24 hours): Temp Pulse Resp BP Pulse Ox 98.5 F 85 20 174/68 H 99 06/29/18 08:52 06/29/18 12:37 06/29/18 08:52 06/29/18 12:37 06/29/18 08:52 - Medications Medications: Current Medications Alprazolam (Xanax) 0.25 mg PO BID PRN PRN Reason: Anxiety Stop: 07/05/18 19:16 Last Admin: 06/28/18 19:41 Dose: 0.25 mg Amlodipine Besylate (Norvasc) 10 mg PO DAILY [facility] Last Admin: 06/29/18 09:41 Dose: 10 mg Aspirin (Aspirin) 325 mg PO DAILY [facility] Last Admin: 06/29/18 09:33 Dose: 325 mg Atorvastatin Calcium (Lipitor) 40 mg PO HS [facility] Last Admin: 06/28/18 21:43 Dose: 40 mg Carvedilol (Coreg) 25 mg PO Q12 [facility] Last Admin: 06/29/18 09:34 Dose: 25 mg Clonidine HCl (Catapres) 0.1 mg PO Q6 PRN PRN Reason: Systolic Blood Pressure Last Admin: 06/28/18 09:07 Dose: 0.1 mg Clopidogrel Bisulfate (Plavix) 75 mg PO DAILY [facility] Last Admin: 06/29/18 09:41 Dose: 75 mg Docusate Sodium (Colace) 100 mg PO BID [facility] Last Admin: 06/29/18 09:33 Dose: 100 mg Folic Acid (Folic Acid) 1 mg PO DAILY [facility] Last Admin: 06/29/18 09:35 Dose: 1 mg Furosemide (Lasix) 40 mg PO DAILY [facility] Last Admin: 06/29/18 09:41 Dose: 40 mg Hydralazine HCl (Apresoline) 100 mg PO TID [facility] Last Admin: 06/29/18 12:37 Dose: 100 mg Hydromorphone HCl (Dilaudid) 2 mg IVP Q4 PRN PRN Reason: Pain, severe (8-10) Last Admin: 06/29/18 10:29 Dose: 2 mg Lactated Ringer's (Lactated Ringer's) 1,000 mls @ 100 mls/hr IV .Q10H [facility] Insulin Detemir (Levemir) 75 units SC HS [facility] Last Admin: 06/28/18 21:46 Dose: Not Given Insulin Human Regular (Humulin R) 30 units SC TID [facility] Last Admin: 06/29/18 12:39 Dose: 30 units Insulin Human Regular (Humulin R) 0 units SC ACHS [facility]; Protocol Last Admin: 06/29/18 12:38 Dose: 6 units Lactulose (Enulose) 20 gm PO DAILY PRN PRN Reason: Constipation Last Admin: 06/28/18 17:24 Dose: 20 gm Lanthanum Carbonate (Fosrenol) 500 mg PO TID [facility] Last Admin: 06/29/18 12:37 Dose: 500 mg Morphine Sulfate (Morphine Extended Release Tab) 30 mg PO Q12 [facility] Last Admin: 06/29/18 10:21 Dose: Not Given Ondansetron HCl (Zofran Inj) 4 mg IVP Q4 PRN PRN Reason: Nausea/Vomiting Last Admin: 06/26/18 20:29 Dose: 4 mg Psyllium Hydrophilic Mucilloid (Hydrocil Instant) 1 pkt PO DAILY [facility] Last Admin: 06/29/18 09:40 Dose: 1 pkt Ramipril (Altace) 5 mg PO DAILY [facility] Last Admin: 06/29/18 09:28 Dose: 5 mg - Labs Labs: 06/28/18 06:45 06/28/18 18:00 PT 11.4 Seconds (9.8-13.1) 06/10/18 12:30 INR 1.0 06/10/18 12:30 APTT 34.0 Seconds (25.6-37.1) 06/10/18 12:30 - Constitutional Appears: Well - Head Exam Head Exam: ATRAUMATIC, NORMAL INSPECTION, NORMOCEPHALIC - Eye Exam Eye Exam: EOMI, Normal appearance, PERRL Pupil Exam: NORMAL ACCOMODATION, PERRL - ENT Exam ENT Exam: Mucous Membranes Moist, Normal Exam - Neck Exam Neck Exam: Full ROM, Normal Inspection. absent: Lymphadenopathy - Respiratory Exam Respiratory Exam: Clear to Ausculation Bilateral, NORMAL BREATHING PATTERN - Cardiovascular Exam Cardiovascular Exam: REGULAR RHYTHM, +S1, +S2. absent: Murmur - GI/Abdominal Exam GI & Abdominal Exam: Soft, Normal Bowel Sounds. absent: Tenderness - Rectal Exam Rectal Exam: NORMAL INSPECTION - Extremities Exam Extremities Exam: Pedal Edema. absent: Calf Tenderness, Full ROM, Joint Swelling, Normal Capillary Refill, Normal Inspection, Tenderness - Back Exam Back Exam: NORMAL INSPECTION - Neurological Exam Neurological Exam: Alert, Awake, CN II-XII Intact, Normal Gait, Oriented x3 - Psychiatric Exam Psychiatric exam: Normal Affect, Normal Mood - Skin Skin Exam: Dry, Intact, Normal Color, Warm Assessment and Plan (1) Foot pain Status: Acute (2) Foot ulcer Status: Chronic (3) CAD (coronary artery disease) Status: Acute - Assessment and Plan (Free Text) Assessment: cont rx as ordered possible d/c in am
--- NOTE | 2018-06-29 13:31 | PCM.OP ---
Operative Report - Operative Report Date of Surgery/Procedure: 06/27/18 Time of Surgery/Procedure: 09:00 Surgeon: Dr. Macdonald Facilities Engineer: Dr. Margie Doshi Anesthesia/Sedation: IV sedation and Regional Popliteal block Pre-Operative Diagnosis: Pre-Operative Diagnoses: 1) Left foot Charcot deformity with intact External fixator Post-Operative Diagnosis: same Indication for Surgery: Indications: The patient is a 52 year-old female with the above diagnoses. Patient has retained external fixator to Left lower extremity from the initial treatment of Charcot neuropathy and is now requesting surgical intervention to remove it. The patient signed the consent after careful explanation of risks, benefits, complication and alternatives for surgical procedure. No guarantees were given nor implied. 2 grams of Ancef IV were given to the pt hour prior to the procedure. NPO status was confirmed prior to taking pt to the OR. Operative Findings: Preparation: The patient was brought to the operating room and placed on the operating room table in supine position. Once IV sedation and regional popliteal block was achieved, the Left Lower extremity and the entire aspect of external fixator was then prepped and draped in usual sterile manner. All aspects of external fixator were cleansed with Betadine scrubs. Esmarch was utilized to exsanguinate the patient's Left lower extremity. No pneumatic tourniquet was used in this procedure. Procedure/Operation Description: Name of Procedure: Left lower extremity removal of external fixator Attention was directed to the patients left lower extremity where [employer] frame was applied from the prior surgery. Utilizing sterile equipment from the [employer] external fixation set, the entire external fixator was disassembled. At this point, all transfixation wires were cleansed again with Betadine soaked gauze. Next, utilizing a wireless communications engineer, all transfixation wires were cut from both sides. Location of the olive part on the transfixation wire was confirmed with Xray from prior surgery as well as with line markings on the transfixation wire itself. Next, all transfixation wires were pulled from the olive side. All wires were removed with ease and without complication.. All pin sites were flushed with copious amount of sterile saline. After careful examination, it was determined that no pin sites require suturing. Complete removal of all fixations from the Left lower extremity was confirmed under direct visualization and post-operative Xray. Left lower extremity was dressed with adaptic, 4x4, Kerlix and posterior splint. The attending was present during the entire case. Estimated Blood Loss: Less than 3 mL Complications: None Discharge & Condition: Postoperative Condition: The patient tolerated the anesthesia and procedure well and was escorted to the recovery room with vital signs stable and neurovascular status intact to the Left lower extremity. This patient will follow up with Dr. Macdonald.
--- NOTE | 2018-06-29 15:24 | PQF ---
PROVIDER RESPONSE TEXT: Chronic kidney disease stage 3 REVIEWER QUERY TEXT: Kidney Disease, Chronic CKD Stage Chronic Kidney Disease (CKD) is documented in the Medical Record. Please specify the disease stage ( includes probable or suspected): if in agreement Such as: -- Chronic kidney disease Stage 1 -- Chronic kidney disease Stage 2 -- Chronic kidney disease Stage 3 -- Chronic kidney disease Stage 4 -- Chronic kidney disease Stage 5 -- Chronic kidney disease Stage 5, requiring dialysis -- End Stage Renal Disease -- Other, please specify --OR: Disagree BUN: 41->40->34->27->30 Creatinine:1.3->1.4->1.3->1.1->1.3 Est GFR(Af Amer):52->48->52---->60->52 Est GFR(Non- Af Amer): 43->39->43->52->43 06/13 Cardiology consult dxs. include:Chronic kidney disease ; Status: Acute Stages are defined by the [employer] as follows: CKD Stage I GFR >= 90 ml / min per 1.73 m2 and persistent albuminuria CKD Stage 2 GFR between 60 and 89 with persistent albuminuria CKD Stage 3 GFR between 30 and 59 CKD Stage 4 GFR between 15 and 29 CKD Stage 5 GFR between <15 or End Stage Renal Disease The patient's Clinical Indicators include: -- Query created by: Danielle Fiore on 06/15/2018 10:22 AM Electronically signed by: Tushar Jarrell 06/29/2018 3:21 PM
[2018-06-29] MEDS: Insulin Detemir 100 Units/ml Inj SC SCH (21:32)
[2018-06-30] MEDS: Insulin Regular 100 units/ml SC SCH ×4 (08:56→13:23)
[2018-06-30] MEDS: Morphine 30 mg SR Tab PO SCH (08:58)
[2018-06-30] MEDS: Psyllium Packet PO SCH (08:58)
[2018-06-30 09:01] VITALS: RESP 20; TEMP 98.5; O2SAT 97
--- NOTE | 2018-06-30 11:25 | CP.PCM.DIS ---
Provider - Provider Date of Admission: 06/10/18 12:14 Attending physician: Tushar Jarrell MD Consults: 06/10/18 14:18 Infectious Disease Consult Stat Comment: Consulting Provider: Brandon Kiser Consulting Physician: Brandon Kiser Reason for Consult: R leg cellulitis 06/10/18 17:56 Podiatry Consult Routine Comment: Consulting Provider: James Macdonald Consulting Physician: James Macdonald Reason for Consult: bilateral leg cellulitis 06/10/18 18:31 Cardiology Consult Routine Comment: Consulting Provider: Scott Smiley Consulting Physician: Scott Smiley Reason for Consult: preop cardiac clearance 06/11/18 08:34 Anesthesiology Consult Routine Comment: Consulting Provider: Abilio Becerra Consulting Physician: Abilio Becerra Reason for Consult: Pain Mx 06/28/18 09:19 Wound Care [Nursing Referral for Wound Care] Routine Comment: Physician Instructions: xeroform, gauze, kerlix, HELGA Reason For Exam: wound care Time Spent in preparation of Discharge (in minutes): 35 Diagnosis - Discharge Diagnosis (1) Ankle pain Status: Resolved Comment: External hardware removed surgically by Podiatry (2) CAD (coronary artery disease) Status: Acute Comment: S/p PCI w/ [address] Smiley [facility] Course - Lab Results Lab Results: Micro Results 06/10/18 12:45 Blood-Venous Blood Culture - Final NO GROWTH AFTER 5 DAYS 06/10/18 12:45 Blood-Venous Gram Stain - Final TEST NOT PERFORMED 06/10/18 12:55 Blood-Venous Blood Culture - Final NO GROWTH AFTER 5 DAYS 06/10/18 12:55 Blood-Venous Gram Stain - Final TEST NOT PERFORMED Most Recent Lab Values WBC 8.0 K/uL (4.8-10.8) 06/28/18 06:45 RBC 2.83 Mil/uL (3.80-5.20) L 06/28/18 06:45 Hgb 8.1 g/dL (12.0-16.0) L 06/28/18 06:45 Hct 23.8 % (34.0-47.0) L 06/28/18 06:45 MCV 83.9 fl (81.0-99.0) 06/28/18 06:45 MCH 28.6 pg (27.0-31.0) 06/28/18 06:45 MCHC 34.0 g/dL (33.0-37.0) 06/28/18 06:45 RDW 16.9 % (11.5-14.5) H 06/28/18 06:45 Plt Count 244 K/uL (130-400) 06/28/18 06:45 MPV 8.0 fl (7.2-11.7) 06/11/18 05:30 Neut % (Auto) 72.1 % (50.0-75.0) 06/11/18 05:30 Lymph % (Auto) 17.7 % (20.0-40.0) L 06/11/18 05:30 [place] % (Auto) 8.3 % (0.0-10.0) 06/11/18 05:30 Eos % (Auto) 1.3 % (0.0-4.0) 06/11/18 05:30 Baso % (Auto) 0.6 % (0.0-2.0) 06/11/18 05:30 Neut # (Auto) 4.5 K/uL (1.8-7.0) 06/11/18 05:30 Lymph # (Auto) 1.1 K/uL (1.0-4.3) 06/11/18 05:30 [place] # (Auto) 0.5 K/uL (0.0-0.8) 06/11/18 05:30 Eos # (Auto) 0.1 K/uL (0.0-0.7) 06/11/18 05:30 Baso # (Auto) 0.0 K/uL (0.0-0.2) 06/11/18 05:30 PT 11.4 Seconds (9.8-13.1) 06/10/18 12:30 INR 1.0 06/10/18 12:30 APTT 34.0 Seconds (25.6-37.1) 06/10/18 12:30 pO2 36 mm/Hg (30-55) 06/10/18 12:05 VBG pH 7.41 (7.32-7.43) 06/10/18 12:05 VBG pCO2 56 mmHg (40-60) 06/10/18 12:05 VBG HCO3 31.5 mmol/L 06/10/18 12:05 VBG Total CO2 37.2 mmol/L (22-28) H 06/10/18 12:05 VBG O2 Sat (Calc) 73.2 % (40-65) H 06/10/18 12:05 VBG Base Excess 9.2 mmol/L (0.0-2.0) H 06/10/18 12:05 VBG Potassium 3.4 mmol/L (3.6-5.2) L 06/10/18 12:05 Sodium 141.0 mmol/L (132-148) 06/10/18 12:05 Chloride 101.0 mmol/L (98-107) 06/10/18 12:05 Glucose 94 mg/dL (65-105) 06/10/18 12:05 Lactate 1.5 mmol/L (0.7-2.1) 06/10/18 12:05 FiO2 21.0 % 06/10/18 12:05 Sodium 139 mmol/l (132-148) 06/28/18 18:00 Potassium 4.0 MMOL/L (3.6-5.0) 06/28/18 18:00 Chloride 102 mmol/L (98-107) 06/28/18 18:00 Carbon Dioxide 27 mmol/L (22-30) 06/28/18 18:00 Anion Gap 14 (10-20) 06/28/18 18:00 BUN 33 mg/dl (7-17) H 06/28/18 18:00 Creatinine 1.0 mg/dl (0.7-1.2) 06/28/18 18:00 Est GFR ( Amer) > 60 06/28/18 18:00 Est GFR (Non-Af Amer) 58 06/28/18 18:00 POC Glucose (mg/dL) 109 mg/dL (65-110) 06/29/18 21:13 Random Glucose 180 mg/dL (65-105) H 06/28/18 18:00 Calcium 9.3 mg/dL (8.4-10.2) 06/28/18 18:00 Phosphorus 3.6 mg/dl (2.5-4.5) 06/28/18 18:00 Magnesium 1.8 MG/DL (1.6-2.3) 06/28/18 18:00 Total Bilirubin 0.4 mg/dl (0.2-1.3) 06/28/18 18:00 AST 25 U/L (14-36) 06/28/18 18:00 ALT 15 U/L (9-52) 06/28/18 18:00 Alkaline Phosphatase 90 U/L (38-126) 06/28/18 18:00 Troponin I 0.0170 ng/mL (0.00-0.120) 06/10/18 12:30 NT-Pro-B Natriuret Pep 1460 pg/ml (0-900) H 06/20/18 13:15 Total Protein 7.4 G/DL (6.3-8.2) 06/28/18 18:00 Albumin 3.7 g/dL (3.5-5.0) 06/28/18 18:00 Globulin 3.7 gm/dL (2.2-3.9) 06/28/18 18:00 Albumin/Globulin Ratio 1.0 (1.0-2.1) 06/28/18 18:00 Venous Blood Potassium 3.4 mmol/L (3.6-5.2) L 06/10/18 12:05 Vancomycin Trough 20.9 ug/mL (5.0-10.0) H 06/12/18 05:30 Random Vancomycin < 5.0 ug/mL 06/21/18 10:22 Blood Type B POSITIVE 06/26/18 13:00 Antibody Screen Negative 06/26/18 13:00 Crossmatch See Detail 06/26/18 13:00 BBK History Checked Patient has bt 06/26/18 13:00 - Hospital Course Hospital Course: [age] yo patient with significant cardiac hx (CAD with 2 stents), DM, recent L foot surgery due to OM and Charcot deformity, with chronic L foot ulcer admitted for removal of external fixator. Id was consulted and pt received IV Zosyn for 2 weeks total. Prior to procedure, pt had 2 PCI at [facility] with Dr. Smiley. External hardware removed from left foot on 06/27. Post operative Xrays show removal of all hardware. Postoperatively, pt was healing well and cleared for discharge by ortho. PT recommended rehab, however pt declined and stated she wanted to go home. Pt was discharged home with services and outpatient PT. Advised to continue taking dual antiplatelet therapy and statins as per Dr. Smiley. Discharge Exam - Head Exam Head Exam: ATRAUMATIC, NORMAL INSPECTION, NORMOCEPHALIC - Eye Exam Eye Exam: Normal appearance - ENT Exam ENT Exam: Mucous Membranes Moist - Respiratory Exam Respiratory Exam: Clear to PA & Lateral - Cardiovascular Exam Cardiovascular Exam: REGULAR RHYTHM - Extremities Exam Extremities exam: normal capillary refill, pedal edema (trace bl, left foot wrapped with toes visible, pink, warm, good capillary refill.. ), pedal pulses present - Neurological Exam Neurological exam: Alert, Oriented x3 - Psychiatric Exam Psychiatric exam: Normal Affect - Skin Skin Exam: Normal Color Discharge Plan - Discharge Medications Prescriptions: amLODIPine [Norvasc] 10 mg PO BID #60 tab Atorvastatin [Lipitor] 40 mg PO HS #30 tab Carvedilol [Coreg] 25 mg PO Q12 #60 tab cloNIDine [Catapres] 0.1 mg PO Q6 PRN #30 tab PRN Reason: Systolic Blood Pressure Clopidogrel [Plavix] 75 mg PO DAILY #30 tab Furosemide [Lasix] 40 mg PO DAILY #30 tab Hydralazine HCl 100 mg PO TID #90 tablet Insulin Detemir [Levemir] 70 units SC HS #1 vial Insulin Lispro [Humalog (Insulin Lispro)] 30 unit SQ TID #1 ml Psyllium [Hydrocil Instant] 1 pkt PO DAILY #30 packet Ramipril [Altace] 5 mg PO DAILY #30 cap - Follow Up Plan Condition: FAIR Disposition: HOME/ ROUTINE Instructions: Wound Care (DC), Hardware Removal, Wound Infection Additional Instructions: follow up with primary MD and podiatry 5-7 days. [facility] [phone] Referrals: Tushar Jarrell MD [Staff Provider] - James Macdonald DPM [Medical Doctor] - Scott Smiley MD [Family Provider] - Jamie Becerra-Luis Bernard MD [Staff Provider] - Brandon Kiser MD [Staff Provider] -
--- NOTE | 2018-06-30 11:43 | CP.PCM.PCO ---
Assessment/Plan - Assessment/Plan Assessment (Free Text): Pt stable, tolerated PT, cleared to go home with cane. CM arranging for home VNS. Pt cleared by all consultants. Cardiac meds as per Dr. Smiley, Rx given. Pt states she has an appointment with her pain management doctor tomorrow and has some pain meds at home. Seen and cleared for d/c home by Dr. Jarrell. Pt to f/u with Dr. Smiley, PMD or Dr. Jarrell and podiatry in 1 week. All Rx e-scribed to pt's pharmacy - Consults Consult Orders: Consultations
--- NOTE | 2018-06-30 11:53 | PQF ---
PROVIDER RESPONSE TEXT: Acute flash pulmonary edema, post PCI, now resolved REVIEWER QUERY TEXT: Acuity Specificity Flash Pulmonary Edema is documented in the Medical Record. Please specify the acuity of this conditio n with terms such as: -- Acute -- Chronic -- Other (please specify in the medical record) 06/20 [facility] Podiatry Resident progress note; [place] [facility] - post procedure had HTN, SOB likely from hypertensive pulmonary edema and was transferred [place] [facility] [place] 06/21 [facility] FP Medicine Resident progress note; patient had PCI with Dr Smiley w/ stenting of mid LA D (restenosis noted) on 06/17. Was noted shortly after to have flash pulmonary edema which has since then resolved. The patient's Clinical Indicators include: -- Query created by: Danielle Fiore on 06/24/2018 9:16 AM Electronically signed by: Rea Wan 06/30/2018 11:50 AM
--- NOTE | 2018-06-30 13:09 | PQF ---
PROVIDER RESPONSE TEXT: Acute pulmonary edema REVIEWER QUERY TEXT: Acuity Specificity Flash Pulmonary Edema is documented in the Medical Record. Please specify the acuity of this conditio n with terms such as: -- Acute -- Chronic -- Other (please specify in the medical record) 06/20 [facility] Podiatry Resident progress note; Patient s/p cardiac cath [place] [facility] [place] 06[place]17 - post procedure had HTN, SOB likely from hypertensive pulmonary edema and was transferred to [facility] [place] ICU for monitoring 06/21 [facility] FP Medicine Resident progress note; patient had PCI with Dr Smiley w/ stenting of mid LA D (restenosis noted) on 06/17. Was noted shortly after to have flash pulmonary edema which has since then resolved. The patient's Clinical Indicators include: -- Query created by: Danielle Fiore on 06/30/2018 8:24 AM Electronically signed by: Tushar Jarrell 06/30/2018 1:06 PM
[2018-06-30 13:24] VITALS: BP 156/74; PULSE 81
--- NOTE | 2018-06-30 13:41 | CP.PCM.PN ---
Subjective - Date & Time of Evaluation Date of Evaluation: 06/28/18 Time of Evaluation: 20:00 - Subjective Subjective: tolerate procedure well Objective - Vital Signs/Intake and Output Vital Signs (last 24 hours): Temp Pulse Resp BP Pulse Ox 98.5 F 81 20 156/74 H 97 06/30/18 09:00 06/30/18 13:18 06/30/18 09:00 06/30/18 13:18 06/30/18 09:00 - Medications Medications: Current Medications Alprazolam (Xanax) 0.25 mg PO BID PRN PRN Reason: Anxiety Stop: 07/05/18 19:16 Last Admin: 06/28/18 19:41 Dose: 0.25 mg Amlodipine Besylate (Norvasc) 10 mg PO DAILY [facility] Last Admin: 06/30/18 08:59 Dose: 10 mg Aspirin (Aspirin) 325 mg PO DAILY [facility] Last Admin: 06/30/18 08:53 Dose: 325 mg Atorvastatin Calcium (Lipitor) 40 mg PO HS [facility] Last Admin: 06/29/18 21:31 Dose: 40 mg Carvedilol (Coreg) 25 mg PO Q12 [facility] Last Admin: 06/30/18 08:54 Dose: 25 mg Clonidine HCl (Catapres) 0.1 mg PO Q6 PRN PRN Reason: Systolic Blood Pressure Last Admin: 06/28/18 09:07 Dose: 0.1 mg Clopidogrel Bisulfate (Plavix) 75 mg PO DAILY [facility] Last Admin: 06/30/18 08:59 Dose: 75 mg Docusate Sodium (Colace) 100 mg PO BID [facility] Last Admin: 06/30/18 08:53 Dose: 100 mg Folic Acid (Folic Acid) 1 mg PO DAILY [facility] Last Admin: 06/30/18 08:54 Dose: 1 mg Furosemide (Lasix) 40 mg PO DAILY [facility] Last Admin: 06/30/18 08:58 Dose: 40 mg Hydralazine HCl (Apresoline) 100 mg PO TID [facility] Last Admin: 06/30/18 13:18 Dose: 100 mg Hydromorphone HCl (Dilaudid) 2 mg IVP Q4 PRN PRN Reason: Pain, severe (8-10) Last Admin: 06/30/18 11:28 Dose: 2 mg Lactated Ringer's (Lactated Ringer's) 1,000 mls @ 100 mls/hr IV .Q10H [facility] Insulin Detemir (Levemir) 75 units SC HS [facility] Last Admin: 06/29/18 21:32 Dose: Not Given Insulin Human Regular (Humulin R) 30 units SC TID [facility] Last Admin: 06/30/18 13:23 Dose: 30 units Insulin Human Regular (Humulin R) 0 units SC ACHS [facility]; Protocol Last Admin: 06/30/18 13:22 Dose: 4 units Lactulose (Enulose) 20 gm PO DAILY PRN PRN Reason: Constipation Last Admin: 06/28/18 17:24 Dose: 20 gm Lanthanum Carbonate (Fosrenol) 500 mg PO TID [facility] Last Admin: 06/30/18 13:18 Dose: 500 mg Morphine Sulfate (Morphine Extended Release Tab) 30 mg PO Q12 [facility] Last Admin: 06/30/18 08:58 Dose: Not Given Ondansetron HCl (Zofran Inj) 4 mg IVP Q4 PRN PRN Reason: Nausea/Vomiting Last Admin: 06/29/18 20:34 Dose: 4 mg Psyllium Hydrophilic Mucilloid (Hydrocil Instant) 1 pkt PO DAILY [facility] Last Admin: 06/30/18 08:58 Dose: 1 pkt Ramipril (Altace) 5 mg PO DAILY [facility] Last Admin: 06/30/18 08:52 Dose: 5 mg - Labs Labs: 06/28/18 06:45 06/28/18 18:00 PT 11.4 Seconds (9.8-13.1) 06/10/18 12:30 INR 1.0 06/10/18 12:30 APTT 34.0 Seconds (25.6-37.1) 06/10/18 12:30 Assessment and Plan (1) CAD (coronary artery disease) Status: Acute (2) Preop cardiovascular exam Status: Acute (3) CHF (congestive heart failure) Status: Acute (4) Chronic kidney disease Status: Acute (5) Essential hypertension Status: Chronic (6) Hypertension Status: Chronic
== END 2018-06-30 13:58 | disposition home health service (06) | DRG 981 ==
LOC: H.ER 11:09 → H.ERHOLD 12:14 → H.MEDSURG1 16:49
PROVIDERS: ADMIT Internal Medicine; ATTEND Internal Medicine
PROC: 02HV33Z Insertion of Infusion Device into Superior Vena Cava, Percutaneous Approach (ICD-10-PCS; 2018-06-10)
PROC: B518ZZA Fluoroscopy of Superior Vena Cava, Guidance (ICD-10-PCS; 2018-06-10)
PROC: 3E04329 Introduction of Other Anti-infective into Central Vein, Percutaneous Approach (ICD-10-PCS; 2018-06-10)
PROC: 027035Z Dilation of Coronary Artery, One Artery with Two Drug-eluting Intraluminal Devices, Percutaneous Approach (ICD-10-PCS; 2018-06-16)
PROC: 4A023N7 Measurement of Cardiac Sampling and Pressure, Left Heart, Percutaneous Approach (ICD-10-PCS; 2018-06-16)
PROC: B206YZZ Plain Radiography of Right and Left Heart using Other Contrast (ICD-10-PCS; 2018-06-16)
PROC: 02703Z6 Dilation of Coronary Artery, One Artery, Bifurcation, Percutaneous Approach (ICD-10-PCS; 2018-06-21)
PROC: 4A023N7 Measurement of Cardiac Sampling and Pressure, Left Heart, Percutaneous Approach (ICD-10-PCS; 2018-06-21)
PROC: 30233N1 Transfusion of Nonautologous Red Blood Cells into Peripheral Vein, Percutaneous Approach (ICD-10-PCS; 2018-06-26)
PROC: 3E0T3BZ Introduction of Anesthetic Agent into Peripheral Nerves and Plexi, Percutaneous Approach (ICD-10-PCS; 2018-06-27)
PROC: 0SP Lower Joints, Removal (ICD-10-PCS; principal; 2018-06-27 09:00)
DX: E11.621 Type 2 diabetes mellitus with foot ulcer (principal); I50.31 Acute diastolic (congestive) heart failure; J81.0 Acute pulmonary edema; L97.529 Non-pressure chronic ulcer of other part of left foot with unspecified severity; T82.855A Stenosis of coronary artery stent, initial encounter; I13.0 Hypertensive heart and chronic kidney disease with heart failure and stage 1 through stage 4 chronic kidney disease, or unspecified chronic kidney disease; N18.3 Chronic kidney disease, stage 3 (moderate); I97.3 Postprocedural hypertension; I42.9 Cardiomyopathy, unspecified; E11.42 Type 2 diabetes mellitus with diabetic polyneuropathy; E11.22 Type 2 diabetes mellitus with diabetic chronic kidney disease; E11.610 Type 2 diabetes mellitus with diabetic neuropathic arthropathy; L97.829 Non-pressure chronic ulcer of other part of left lower leg with unspecified severity; G89.29 Other chronic pain; I25.10 Atherosclerotic heart disease of native coronary artery without angina pectoris; E78.5 Hyperlipidemia, unspecified; E78.00 Pure hypercholesterolemia, unspecified; F41.9 Anxiety disorder, unspecified; K59.00 Constipation, unspecified; Y83.1 Surgical operation with implant of artificial internal device as the cause of abnormal reaction of the patient, or of later complication, without mention of misadventure at the time of the procedure; Z79.4 Long term (current) use of insulin; Z79.02 Long term (current) use of antithrombotics/antiplatelets; Z79.82 Long term (current) use of aspirin; Z86.73 Personal history of transient ischemic attack (TIA), and cerebral infarction without residual deficits

== ENCOUNTER 2018-07-17 16:32 | Emergency (ER) | payer OTHER ==
[2018-07-17 16:38] VITALS: BMI 34.9
--- NOTE | 2018-07-17 17:10 | RAD ---
Date of service: 07/17/2018 HISTORY: routine COMPARISON: Comparison chest 06/20/2018. TECHNIQUE: Chest PA and lateral FINDINGS: Interval removal previously noted right-sided PICC line. LUNGS: Increased and coarsened interstitial markings; rule out sequela of reactive/inflammatory airway disease or viral illness. Note that the possibility of mild chronic compensated pulmonary venous congestion not excluded. Clinical correlation recommended. PLEURA: No significant pleural effusion identified. No pneumothorax apparent. CARDIOVASCULAR: No significant aortic atherosclerotic calcification present. Cardiomegaly.. No pulmonary vascular congestion. OSSEOUS STRUCTURES: No significant abnormalities. VISUALIZED UPPER ABDOMEN: Normal. OTHER FINDINGS: None. IMPRESSION: Increased and coarsened interstitial markings; rule out sequela of reactive/inflammatory airway disease or viral illness. Note that the possibility of mild chronic compensated pulmonary venous congestion not excluded. Clinical correlation recommended.
--- NOTE | 2018-07-17 17:16 | ED PDOC ---
HPI: General Adult Time Seen by Provider: 07/17/18 16:43 Chief Complaint (Nursing): Lower Extremity Problem/Injury Chief Complaint (Provider): Lower Extremity Problem History Per: Patient History/Exam Limitations: no limitations Onset/Duration Of Symptoms: Days (2x) Current Symptoms Are (Timing): Still Present Severity: Moderate Additional Complaint(s): 52 year old female with a past medical history of congestive heart failure and diabetes presents to the ED for an evaluation of worsening right leg swelling for 2x days. Patient reports that she was recently discharged from the hospital after having an external fixator (left lower extremity) removed by Dr.Craig Macdonald. Patient reports that she was seen here 3x days ago for a follow up ap pointment. Patient reports that she is concerned about the swelling to her leg. Patient reports that she was recently admitted to for a cardiac catheter, and has a follow up appointment with him in 4x days. Patient also reports that her lasix prescription was recently decreased from 40 mg BID to 40 mg daily. Patient denies having fevers and chills. Dean Of Women: Dr. Smiley Manager Gift: PMD: Sarath Doshi MD Past Medical History Reviewed: Historical Data, Nursing Documentation, Vital Signs Vital Signs: Last Vital Signs Temp 97.7 F 07/17/18 16:37 Pulse 95 H 07/17/18 16:37 Resp 16 07/17/18 16:37 BP 155/72 H 07/17/18 16:37 Pulse Ox 95 07/17/18 16:37 JAKE Report Viewed: Yes - Medical History PMH: Anemia, Anxiety, Arthritis (WALKER), Back Problems (herniated disks), CAD, CHF, CVA, Depression, Diabetes, HTN, Hypercholesterolemia, Hyperlipidemia, Peripheral Edema Denies: COPD, Hepatitis, HIV, Hypothyroidism, Chronic Kidney Disease, Rheumatoid Arthritis, Seizures, Sexually Transmitted Disease - Surgical History Surgical History: Appendectomy, Coronary Stent - Family History Family History: States: No Known Family Hx - Social History Current smoker - smoking cessation education provided: No Alcohol: None Drugs: Denies - Immunization History Hx Tetanus Toxoid Vaccination: No Hx Influenza Vaccination: No Hx Pneumococcal Vaccination: No - Home Medications Home Medications: Ambulatory Orders Medication Instructions Recorded oxyCODONE [oxyCODONE Immediate 30 mg PO Q6H PRN 05/28/15 Release Tab] Morphine Sulfate [Morphine Sulfate 30 mg PO Q12H 09/09/16 ER] ALPRAZolam [Xanax] 0.25 PO BID PRN 06/10/18 Folic Acid 1 mg PO DAILY 06/10/18 Lanthanum Carbonate 500 mg PO TID 06/10/18 Aspirin 325 mg PO DAILY tab 06/30/18 Atorvastatin [Lipitor] 40 mg PO HS #30 tab 06/30/18 Carvedilol [Coreg] 25 mg PO Q12 #60 tab 06/30/18 Clopidogrel [Plavix] 75 mg PO DAILY #30 tab 06/30/18 Docusate [Colace] 100 mg PO BID cap 06/30/18 Furosemide [Lasix] 40 mg PO DAILY #30 tab 06/30/18 Hydralazine HCl 100 mg PO TID #90 tablet 06/30/18 Insulin Detemir [Levemir] 70 units SC HS #1 vial 06/30/18 Insulin Lispro [Humalog (Insulin 30 unit SQ TID #1 ml 06/30/18 Lispro)] Psyllium [Hydrocil Instant] 1 pkt PO DAILY #30 packet 06/30/18 Ramipril [Altace] 5 mg PO DAILY #30 cap 06/30/18 cloNIDine [Catapres] 0.1 mg PO Q6 PRN #30 tab 06/30/18 amLODIPine [Norvasc] 10 mg PO DAILY #30 tab 07/01/18 Compress.stocking,Knee,Reg,Med 1 each MC ONCE PRN #1 each 07/17/18 [Truform Compression Stocking] - Allergies Allergies/Adverse Reactions: Allergies Allergy/AdvReac Type Severity Reaction Status Date / Time No Known Allergies Allergy Verified 06/10/18 11:32 Review of Systems ROS Statement: Except As Marked, All Systems Reviewed And Found Negative Constitutional: Negative for: Fever, Chills Musculoskeletal: Positive for: Other (right leg swelling) Physical Exam - Reviewed Nursing Documentation Reviewed: Yes Vital Signs Reviewed: Yes - Physical Exam Appears: Positive for: Well, Non-toxic, No Acute Distress Head Exam: Positive for: ATRAUMATIC, NORMOCEPHALIC Skin: Positive for: Normal Color, Warm, Dry Cardiovascular/Chest: Positive for: Regular Rate, Rhythm Respiratory: Positive for: Normal Breath Sounds (clear to auscultation) Extremity: Positive for: Other (2+ edema noted to right left. (-) erythema. Bandaged wound on right leg. Right foot: partial foot amputation, (-) signs of erythema.) Neurologic/Psych: Positive for: Alert, Oriented (3x) - Laboratory Results Result Diagrams: 18 17:17 18 17:17 - ECG O2 Sat by Pulse Oximetry: 95 (RA) Pulse Ox Interpretation: Normal - Radiology X-Ray: Viewed By Me, Read By Radiologist (see MDM note) - CT Scan/US US duplex LE Right Other Rad Studies (CT/US): Read By Radiologist, Radiology Report Reviewed (see MDM note) - Progress ED Course And Treament: d/w Dr. Smiley. No Lasix increase at this time. Patient to f/u with him this week as scheduled Medical Decision Making Medical Decision Makin:43 Initial impression: 52 year old female with right leg swelling. Initial plan: * XRay chest 2 views * US duplex lower extrm vein right * probnp * CMP * CBC with diff * reevaluation 17:07 XRay chest read and reviewed by radiologist FINDINGS: Interval removal previously noted right-sided PICC line. LUNGS: Increased and coarsened interstitial markings; rule out sequela of reactive/inflammatory airway disease or viral illness. Note that the possib ility of mild chronic compensated pulmonary venous congestion not excluded. Clinical correlation recommended. PLEURA: No significant pleural effusion identified. No pneumothorax apparent. CARDIOVASCULAR: No significant aortic atherosclerotic calcification present. Cardiomegaly.. No pulmonary vascular congestion. OSSEOUS STRUCTURES: No significant abnormalities. VISUALIZED UPPER ABDOMEN: Normal. OTHER FINDINGS: None. IMPRESSION: Increased and coarsened interstitial markings; rule out sequela of reactive/inflammatory airway disease or viral illness. Note that the possibility of mild chronic compensated pulmonary venous congestion not excluded. Clinical correlation recommended. 17:46 US duplex lower extrm vein right read and reviewed by radiologist FINDINGS: COMMON FEMORAL VEIN: Unremarkable. SUPERFICIAL FEMORAL VEIN: Unremarkable. POPLITEAL VEIN: Unremarkable. POSTERIOR TIBIAL VEIN: Posterior tibial vein is not visualized on this exam and therefore thrombosis within this vessel cannot be excluded. Right OTHER FINDINGS: None. IMPRESSION: Right posterior tibial vein not visualized and therefore thrombosis within this vessel cannot be excluded. The remaining visualized deep veins of the right lower extremity demonstrate no evidence of deep venous thrombosis.. 18:20 Call placed to Scribe Attestation: Documented by Tiffany Vaughan, acting as a scribe for Renetta Vora PA-C. Provider Scribe Attestation: All medical record entries made by the Scribe were at my direction and personally dictated by me. I have reviewed the chart and agree that the record accurately reflects my personal performance of the history, physical exam, medical decision making, and the department course for this patient. I have also personally directed, reviewed, and agree with the discharge instructions and disposition. Disposition - Clinical Impression Clinical Impression: Lower leg edema - Disposition Disposition: Routine/Home Disposition Time: 18:51 Condition: FAIR Prescriptions: Compress.stocking,Knee,Reg,Med [Truform Compression Stocking] 1 each MC ONCE PRN #1 each PRN Reason: Swelling Instructions: Dependent Edema (DC)
[2018-07-17 17:41] LABS: BASO % 0.3 % (0.0-2.0); EOS # 0.1 K/uL (0.0-0.7); EOS % 2.3 % (0.0-4.0); HEMOGLOBIN 9.3 g/dL (12.0-16.0); LYMPH % 15.1 % (20.0-40.0); MEAN CELL VOLUME 87.4 fl (81.0-99.0); MEAN CORPUSCULAR HEMOGLOBIN 28.6 pg (27.0-31.0); MEAN CORPUSCULAR HGB CONC 32.7 g/dL (33.0-37.0); MEAN PLATELET VOLUME 7.8 fl (7.2-11.7); MONO # 0.4 K/uL (0.0-0.8); MONO % 6.8 % (0.0-10.0); NEUT # 4.7 K/uL (1.8-7.0); NEUT % 75.5 % (50.0-75.0); RBC 3.26 Mil/uL (3.80-5.20); WHITE BLOOD COUNT 6.3 K/uL (4.8-10.8)
--- NOTE | 2018-07-17 17:49 | US ---
Date of service: 07/17/2018 PROCEDURE: Right lower extremity venous duplex Doppler. HISTORY: Routine. COMPARISON: Comparison made with prior right lower extremity venous Doppler dated 09/19/2017.. TECHNIQUE: Common femoral, superficial femoral, popliteal and posterior tibial veins were evaluated. Flow was assessed with color Doppler, compressibility, assessment of phasic flow and augmentation response. FINDINGS: COMMON FEMORAL VEIN: Unremarkable. SUPERFICIAL FEMORAL VEIN: Unremarkable. POPLITEAL VEIN: Unremarkable. POSTERIOR TIBIAL VEIN: Posterior tibial vein is not visualized on this exam and therefore thrombosis within this vessel cannot be excluded. Right OTHER FINDINGS: None. IMPRESSION: Right posterior tibial vein not visualized and therefore thrombosis within this vessel cannot be excluded. The remaining visualized deep veins of the right lower extremity demonstrate no evidence of deep venous thrombosis..
[2018-07-17 17:58] LABS: ALB/GLOB RATIO 1.1 (1.0-2.1); ALBUMIN 3.9 g/dL (3.5-5.0); ALT/SGPT 36 U/L (9-52); AST/SGOT 30 U/L (14-36); BLOOD UREA NITROGEN 38 mg/dl (7-17); CALCIUM 9.8 mg/dL (8.4-10.2); GFR NON-AFRICAN AMERICAN 58
[2018-07-17 18:05] LABS: B-TYPE NATRIURETIC PEPTIDE 1090 pg/ml (0-900)
[2018-07-17 19:03] VITALS: BP 174/84; PULSE 81; RESP 15; TEMP 98.2; O2SAT 97
== END 2018-07-17 19:03 | disposition home or self-care (01) ==
LOC: H.ER 16:32
DX: R60.0 Localized edema (principal); E11.9 Type 2 diabetes mellitus without complications; E78.00 Pure hypercholesterolemia, unspecified; I11.0 Hypertensive heart disease with heart failure; Z79.4 Long term (current) use of insulin; Z86.73 Personal history of transient ischemic attack (TIA), and cerebral infarction without residual deficits; Z95.5 Presence of coronary angioplasty implant and graft

== ENCOUNTER 2018-08-12 23:58 | Emergency (ER) | payer MEDICARE, BC ==
[2018-08-12 23:58] VITALS: BMI 34.9
--- NOTE | 2018-08-13 01:03 | ED PDOC ---
HPI: SOB/CHF/COPD Time Seen by Provider: 08/13/18 00:30 Chief Complaint (Nursing): Shortness Of Breath Chief Complaint (Provider): SOB History Per: Patient History/Exam Limitations: no limitations Current Symptoms Are (Timing): Still Present Additional Complaint(s): 52 y/o F with hx of CHF, HTN, HL, DM, CAD/ND s/p stents most recently in 06/2018 to LCX who presents with SOB since this morning. Pt states that she woke up this morning feeling mildly SOB but was able to perform ADLs and walk around her home (which is her usual amount of exercise tolerance) so she did not pay much attention to it. She was ok throughout the day until she went to bed this evening. When she went to lie down, she woke up suddenly gasping for air and decided to be evaluated in ED given her hx of CHF. Denies C/P, palpitations, dizziness, syncope. She has chronic LE edema which is no worse. No SOB with walking around her home. She took her Lasix 40mg PO daily today and has been urinating normally. Patient states that she was recently discharged from the hospital and all of her medications were changed including her Lasix dose being changed from 40mg PO BID to 40mg PO daily. Past Medical History Reviewed: Historical Data, Nursing Documentation, Vital Signs Vital Signs: Last Vital Signs Temp 98 F 08/13/18 00:12 Pulse 93 H 08/13/18 00:12 Resp 20 08/13/18 00:12 BP 175/79 H 08/13/18 00:12 Pulse Ox 94 L 08/13/18 00:12 - Medical History PMH: Anemia, Anxiety, Arthritis (WALKER), Back Problems (herniated disks), CAD, CHF, CVA, Depression, Diabetes, HTN, Hypercholesterolemia, Hyperlipidemia, Peripheral Edema Denies: COPD, Hepatitis, HIV, Hypothyroidism, Chronic Kidney Disease, Rheumatoid Arthritis, Seizures, Sexually Transmitted Disease - Surgical History Surgical History: Appendectomy, Coronary Stent - Family History Family History: States: Unknown Family Hx - Immunization History Hx Tetanus Toxoid Vaccination: No Hx Influenza Vaccination: No Hx Pneumococcal Vaccination: No - Home Medications Home Medications: Ambulatory Orders Medication Instructions Recorded oxyCODONE [oxyCODONE Immediate 30 mg PO Q6H PRN 05/28/15 Release Tab] Morphine Sulfate [Morphine Sulfate 30 mg PO Q12H 03/27/16 ER] ALPRAZolam [Xanax] 0.25 PO BID PRN 06/10/18 Folic Acid 1 mg PO DAILY 06/10/18 Lanthanum Carbonate 500 mg PO TID 06/10/18 Aspirin 325 mg PO DAILY tab 06/30/18 Atorvastatin [Lipitor] 40 mg PO HS #30 tab 06/30/18 Carvedilol [Coreg] 25 mg PO Q12 #60 tab 06/30/18 Clopidogrel [Plavix] 75 mg PO DAILY #30 tab 06/30/18 Docusate [Colace] 100 mg PO BID cap 06/30/18 Furosemide [Lasix] 40 mg PO DAILY #30 tab 06/30/18 Hydralazine HCl 100 mg PO TID #90 tablet 06/30/18 Insulin Detemir [Levemir] 70 units SC HS #1 vial 06/30/18 Insulin Lispro [Humalog (Insulin 30 unit SQ TID #1 ml 06/30/18 Lispro)] Psyllium [Hydrocil Instant] 1 pkt PO DAILY #30 packet 06/30/18 Ramipril [Altace] 5 mg PO DAILY #30 cap 06/30/18 cloNIDine [Catapres] 0.1 mg PO Q6 PRN #30 tab 06/30/18 amLODIPine [Norvasc] 10 mg PO DAILY #30 tab 07/01/18 Compress.stocking,Knee,Reg,Med 1 each MC ONCE PRN #1 each 07/17/18 [Truform Compression Stocking] ALPRAZolam [Xanax] 0.25 mg PO BID PRN #60 tab 07/30/18 Aspirin 325 mg PO DAILY tab 07/30/18 Cephalexin [cephalexin] 500 mg PO BID #10 cap 07/30/18 Losartan [Cozaar] 100 mg PO DAILY 90 Days #90 tab 07/30/18 - Allergies Allergies/Adverse Reactions: Allergies Allergy/AdvReac Type Severity Reaction Status Date / Time No Known Allergies Allergy Verified 08/13/18 00:12 Wells Criteria for PE - Wells Criteria for Pulmonary Embolism Clinical Signs and Symptoms of DVT: No P.E is #1 Diagnosis, or Equally Likely: No Heart Rate >100: No Immobilization at least 3 days;Surgery previous 4 weeks: No Total Score: 0 Review of Systems Constitutional: Negative for: Fever, Chills Cardiovascular: Positive for: Paroxysmal Noc. Dyspnea, Edema. Negative for: Chest Pain, Palpitations, Orthopnea Respiratory: Positive for: Shortness of Breath. Negative for: Cough, SOB with Exertion Gastrointestinal: Negative for: Nausea, Vomiting Physical Exam - Reviewed Nursing Documentation Reviewed: Yes Vital Signs Reviewed: Yes - Physical Exam Appears: Positive for: Non-toxic Head Exam: Positive for: ATRAUMATIC Skin: Positive for: Normal Color Cardiovascular/Chest: Positive for: Regular Rate, Rhythm Respiratory: Positive for: Decreased Breath Sounds (mildly decreased breath sounds at B/L bases, no wheeze, rales or rhonchi noted. ). Negative for: Accessory Muscle Use, Crackles, Rales, Wheezing, Respiratory Distress Gastrointestinal/Abdominal: Positive for: Normal Exam Neurologic/Psych: Positive for: Alert, Oriented - Laboratory Results Result Diagrams: 08/13/18 01:24 08/13/18 01:24 - ECG O2 Sat by Pulse Oximetry: 94 Medical Decision Making Medical Decision Making: CBC, CMP, BNP EKG CXR PA and lateral EKG: sinus, HR 100, septal infarct, no change when compared with EKG from 07/20/18 BNP 900, unchanged from 07/26 CXR read by me shows possible mild pulmonary vascular congestion but unchanged from 07/17/18. Trop: < 0.12 O2 sat on room air Disposition - Clinical Impression Clinical Impression: CHF (congestive heart failure) - Disposition Referrals: Dileep Burciaga MD [Medical Doctor] - Condition: STABLE Additional Instructions: F/u with Dr. Burciaga on Tuesday 08/15 for further evaluation of heart failure. Weigh yourself every morning at the same time and if you gain > 3lbs in 2 days or 5lbs in one week, call your property utilization manager or primary care doctor as you will likely need adjustment in your diuretic. Take Lasix 40mg PO every other day alternating with Lasix 80mg PO every other day. Instructions: Heart Failure, Adult (DC) Forms: [employer] (E[place]ian) Print Language: ECUADOREAN
[2018-08-13 01:40] LABS: BASO # 0.1 K/uL (0.0-0.2); EOS # 0.1 K/uL (0.0-0.7); EOS % 1.6 % (0.0-4.0); HEMOGLOBIN 9.9 g/dL (12.0-16.0); LYMPH # 1.1 K/uL (1.0-4.3); LYMPH % 14.7 % (20.0-40.0); MEAN CORPUSCULAR HEMOGLOBIN 29.1 pg (27.0-31.0); MEAN PLATELET VOLUME 7.8 fl (7.2-11.7); MONO # 0.3 K/uL (0.0-0.8); MONO % 4.3 % (0.0-10.0); NEUT # 5.8 K/uL (1.8-7.0); NEUT % 78.4 % (50.0-75.0); RBC 3.42 Mil/uL (3.80-5.20); RED CELL DISTRIBUTION WIDTH 16.2 % (11.5-14.5); WHITE BLOOD COUNT 7.4 K/uL (4.8-10.8)
[2018-08-13 01:55] LABS: ALB/GLOB RATIO 1.1 (1.0-2.1); ALBUMIN 4.1 g/dL (3.5-5.0); ALT/SGPT 36 U/L (9-52); AST/SGOT 30 U/L (14-36); BLOOD UREA NITROGEN 39 mg/dl (7-17); GFR NON-AFRICAN AMERICAN 52
[2018-08-13 01:58] LABS: B-TYPE NATRIURETIC PEPTIDE 916 pg/ml (0-900)
[2018-08-13 03:22] VITALS: RESP 18
[2018-08-13 04:25] VITALS: BP 153/76; PULSE 79; TEMP 97.8; O2SAT 98
--- NOTE | 2018-08-13 10:01 | RAD ---
Date of service: 08/13/2018 HISTORY: Shortness of breath, cough COMPARISON: Comparison made with prior study dated 07/17/2018. TECHNIQUE: Chest PA and lateral FINDINGS: LUNGS: Increased and coarsened interstitial markings; rule out sequela of reactive/inflammatory airway disease or viral illness.. PLEURA: No significant pleural effusion identified. No pneumothorax apparent. CARDIOVASCULAR: No aortic atherosclerotic calcification present. Cardiomegaly.. OSSEOUS STRUCTURES: Minor multilevel degenerative spondylosis of the thoracic spine VISUALIZED UPPER ABDOMEN: Normal. OTHER FINDINGS: None. IMPRESSION: Increased and coarsened interstitial markings; rule out sequela of reactive/inflammatory airway disease or viral illness..
--- NOTE | 2018-08-13 19:28 | CARD ---
APPROVED REPORT Date of service: 08/13/2018 EKG Measurement Heart [id number] <Conclusion> Sinus rhythm with pacemaker spike artifact Septal infarct, age undetermined Abnormal ECG
== END 2018-08-13 04:40 | disposition home or self-care (01) ==
LOC: H.ER 23:58
DX: I11.0 Hypertensive heart disease with heart failure (principal); I25.10 Atherosclerotic heart disease of native coronary artery without angina pectoris; I50.9 Heart failure, unspecified; I25.2 Old myocardial infarction; E11.9 Type 2 diabetes mellitus without complications; Z86.59 Personal history of other mental and behavioral disorders; J44.9 Chronic obstructive pulmonary disease, unspecified; Z79.4 Long term (current) use of insulin; Z79.82 Long term (current) use of aspirin; Z86.73 Personal history of transient ischemic attack (TIA), and cerebral infarction without residual deficits; Z95.5 Presence of coronary angioplasty implant and graft; E78.00 Pure hypercholesterolemia, unspecified
CPT/HCPCS: 71046; 80053; 81025; 83880; 84484; 85025; 93005; 99283; J1940